=== PATIENT | female | born 1975 | race Caucasian/White ===

== ENCOUNTER 2023-04-14 13:42 | Outpatient (REF) | payer MEDICARE, SELFPAY ==
[2023-04-14 22:37] LABS: Bilirubin Negative (Negative); Blood Small (Negative); Clarity Clear (Clear); Glucose Negative (Negative); Ketones Negative (Negative); Leukocyte Esterase Trace (Negative); Nitrite Negative (Negative); Specific Gravity >= 1.030 (1.005-1.025); Urobilinogen 0.2 mg/dL (Up to 0.2); pH 6.5 (5-8)
[2023-04-14 23:08] LABS: Bacteria Few HPF (Negative); C & S Indicated? Yes; Casts Negative LPF (Negative); Crystals Negative HPF (Negative); Epithelial Cells Few HPF (Negative); Mucus Negative (Negative)
== END 2023-04-14 13:43 | disposition home or self-care (01) ==
LOC: LBN 13:42
PROVIDERS: PCP Internal Medicine; Visit Provider Physician Assistant
DX: N39.0 Urinary tract infection, site not specified (principal)
CPT/HCPCS: 87077; 81003; 81015; 87086; 87186

== ENCOUNTER 2023-05-09 09:46 | Outpatient (REF) | payer MEDICARE, SELFPAY ==
--- NOTE | 2023-05-09 09:30 | PAPFT_PTH ---
PATIENT: Jane Blair LOC: [facility] U#:[id number] AGE/SX: 47/F ROOM: RE05/09/[address]: Radha Salazar NP : 1975 BED: DIS: 05/09/2023 SPEC #: [id number] RECD: 05/09/23 14:43 STATUS: MATTHEW KAY #: [id number] LEIGHTON: 05/09/23 09:[address]: Radha Salazar NP DEPT: [facility] Cytology RECD BY: Janeen Farrar ENTERED: 05/09/23 14:45 SP TYPE: PAPFT OTHR DR: Michelle Shannon Tissues: 1 - CX/ENDOCX FOR PAP SMEARS Procedures: PAP THIN PREP/UVM Screening HPV DNA PROBE Comments: [id number]
== END 2023-05-09 09:47 | disposition home or self-care (01) ==
LOC: LBN 09:46
PROVIDERS: PCP Internal Medicine; Visit Provider Nurse Practitioner Women's Health
DX: Z11.51 Encounter for screening for human papillomavirus (HPV) (principal); Z01.419 Encounter for gynecological examination (general) (routine) without abnormal findings
CPT/HCPCS: 88142; 87624

== ENCOUNTER 2023-05-15 05:45 | Emergency (ER) | payer MEDICARE, SELFPAY ==
--- NOTE | 2023-05-15 05:45 | DI.RAD_ITS ---
Exam(s) XR FOOT RT COMPLETE EXAM: XR FOOT RT COMPLETE CLINICAL HISTORY: right foot pain s/p fall. TECHNIQUE: 2D digital imaging was performed. COMPARISON: No exams were available for comparison FINDINGS: 3 views There are acute fractures in the bases of the 2nd, 3rd, and 4th metatarsals. There is some displacem ent of the fragments at the fracture site at the base of the 3rd metatarsal. Less so at the other in volved metatarsal bases. There is no diastasis of the main Lisfranc joint. There is no fracture in the great toe metatarsal nor in the 5th metatarsal. There is no dislocation of the tarsometatarsal j oints. Moderate-advanced degenerative changes are noted in the metatarsophalangeal joint of the great toe. IMPRESSION: There fractures at the bases of the 2nd, 3rd, and 4th metatarsals as described above. The fracture o f the base of the 3rd metatarsal exhibits some displacement of the fracture fragments; less so at the bases of the 2nd and 4th metatarsal fracture sites. There is no diastasis of the main Lisfranc join t. DATA REPOSITORY: RADIATION DOSE DELIVERED:
[2023-05-15 05:47] VITALS: BP 132/82; PULSE 95; RESP 16; TEMP 36.6; O2SAT 100
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
[2023-05-15] MEDS: Ibuprofen 600 MG TAB PO (05:59)
--- NOTE | 2023-05-15 06:39 | DI.VRAD_ITS ---
PROCEDURE INFORMATION: Exam: XR Right Foot Exam date and time: 05/15/2023 6:12 AM Age: 47 years old Clinical indication: Injury or trauma; Fall; Blunt trauma; Foot; Right TECHNIQUE: Imaging protocol: Radiologic exam of the right foot. Views: 3 views. COMPARISON: No relevant prior studies available. FINDINGS: Bones/joints: There is a nondisplaced fracture of the proximal metadiaphysis of the 2nd metatarsal. There is a fracture of the base of the 3rd metatarsal with lateral displacement of the distal fracture fragment by approximately 4 mm and suspected intra-articular extension into the 3rd tarsometatarsal joint. There is an at least mildly comminuted fracture of the base of the 4th metatarsal with intra-articular extension into the tarsometatarsal joint. Alignment is anatomic. 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 Soft tissues: Dorsal soft tissue swelling throughout the forefoot. IMPRESSION: Fractures of the right 2nd-4th metatarsals as described above, with dorsal soft tissue swelling in the forefoot. Dictated and Authenticated by: Tonie Knowles MD. Ordering:GLORY Adrian MD
== END 2023-05-15 07:37 | disposition home or self-care (01) ==
PROVIDERS: Emergency Provider Emergency Medicine; PCP Internal Medicine
DX: S92.324A Nondisplaced fracture of second metatarsal bone, right foot, initial encounter for closed fracture (principal); S92.331A Displaced fracture of third metatarsal bone, right foot, initial encounter for closed fracture; S92.344A Nondisplaced fracture of fourth metatarsal bone, right foot, initial encounter for closed fracture; X50.9XXA Other and unspecified overexertion or strenuous movements or postures, initial encounter; Y93.02 Activity, running; Y92.89 Other specified places as the place of occurrence of the external cause; Y99.9 Unspecified external cause status
CPT/HCPCS: 99283; 73630

== ENCOUNTER 2023-05-25 08:54 | Outpatient (CLI) | payer MEDICARE, SELFPAY ==
--- NOTE | 2023-05-25 08:56 | DI.RAD_ITS ---
Exam(s) XR FOOT RT COMPLETE EXAM: XR FOOT RT COMPLETE CLINICAL HISTORY: F/U FRACTURE. TECHNIQUE: 2D digital imaging was performed of the right foot. Three images were obtained. AP, obl ique and lateral views were obtained. COMPARISON: CR,XR XR FOOT RT COMPLETE from 05/15/2023 FINDINGS: BONES: There again seen fractures through the bases of the 2nd and 3rd metatarsals. There is again s een mild displacement of 1 of the fracture fragments at the base of the 3rd metatarsal bone. There a lso appears to be a fracture through the medial aspect of the base of the 4th metatarsal bone. No ne w fracture is seen. No significant change in alignment of the fractures is noted. No bony destructi ve lesion is seen. JOINTS: No dislocation present. Degenerative changes are seen in the foot particularly at the 1st met atarsophalangeal joint. SOFT TISSUE: There is soft tissue swelling of the foot noted. IMPRESSION: Stable fractures involving the 2nd through 4th metatarsals. DATA REPOSITORY: RADIATION DOSE DELIVERED:
== END 2023-05-25 08:55 | disposition home or self-care (01) ==
LOC: DIORS 08:54
PROVIDERS: PCP Internal Medicine; Referring Provider Internal Medicine; Visit Provider Student in an Organized Health Care Education/Training Program
DX: S92.321A Displaced fracture of second metatarsal bone, right foot, initial encounter for closed fracture (principal); S92.331A Displaced fracture of third metatarsal bone, right foot, initial encounter for closed fracture; S92.341A Displaced fracture of fourth metatarsal bone, right foot, initial encounter for closed fracture; X58.XXXA Exposure to other specified factors, initial encounter
CPT/HCPCS: 99203; 99213; 73630

== ENCOUNTER 2023-06-22 09:40 | Outpatient (CLI) | payer MEDICARE, SELFPAY ==
--- NOTE | 2023-06-22 08:30 | DI.RAD_ITS ---
Exam(s) XR FOOT RT COMPLETE EXAM: XR FOOT RT COMPLETE CLINICAL HISTORY: F/U FRACTURE. TECHNIQUE: 2D digital imaging was performed of the right foot. Three images were obtained. AP, obl ique and lateral views were obtained. COMPARISON: CR XR FOOT RT COMPLETE from 05/25/2023 FINDINGS: BONES: There has been no change in alignment of the fractures involving the bases of the 2nd, 3rd and 4th metatarsals. No new fractures are seen. No bony destructive lesion is seen. There is a small p lantar calcaneal spur. There is an enthesophyte at the posterior calcaneus. JOINTS: No dislocation present. Degenerative changes are seen in the foot particularly at the 1st met atarsophalangeal joint characterized by joint space narrowing and osteophytes. SOFT TISSUE: There is soft tissue swelling of the forefoot. IMPRESSION: Stable alignment of the 2nd through 4th metatarsal fractures. DATA REPOSITORY: RADIATION DOSE DELIVERED:
== END 2023-06-22 09:41 | disposition home or self-care (01) ==
LOC: DIORS 09:41
PROVIDERS: PCP Internal Medicine; Referring Provider Internal Medicine; Visit Provider Student in an Organized Health Care Education/Training Program
DX: S92.321D Displaced fracture of second metatarsal bone, right foot, subsequent encounter for fracture with routine healing (principal); S92.341D Displaced fracture of fourth metatarsal bone, right foot, subsequent encounter for fracture with routine healing; S92.331D Displaced fracture of third metatarsal bone, right foot, subsequent encounter for fracture with routine healing; X58.XXXD Exposure to other specified factors, subsequent encounter
CPT/HCPCS: 99213; 73630

== ENCOUNTER 2024-04-28 15:47 | Outpatient (REF) | payer MEDICARE, SELFPAY ==
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
--- OUTSIDE RECORDS SUMMARY | 2024-04-28 15:49 | XMS_ITS | Encounter Summary ---
Author Organization [facility] Address [address] [place] [address] Care Team Providers Care Team Automobile Assembler Name Role Phone Michelle Shannon MD Primary Care Provider + Reason for Visit * Reason Onset Date Comments Medications Refill 04/19/2024 Encounter Details Date Type Department Care Team (Late st Contact Info) Description 04/19/2024 Refill [facility] [address] [place], [place] [phone] Jasmeet Sheets MD [address] [facility]. [address] [place] [phone] Medications Refill Social History Tobacco Use Types [...] place to sleep or slept in a fpc (including now)? No 04/29/2023 Interpersonal Safety Answer Date Record ed How often does anyone, inclalex elissa family, hit, punch or physically hurt you? Sometimes 04/29/2023 How often does anyone, inclalex elissa family, insult, scream, curse or threaten to hurt you? Sometimes 04/29/2023 Sex and Gender Information Value Date Recorded Sex Assigned at Not on file Gender Identity Female 11/10/2020 8:41 EST Sexual Orientation Straight 12/07/2023 23 :06 EDT documented as of this encounter Ordered Prescriptions Prescription Sig Dispensed Refills Start Date End Da te dextroamphetamine-amphet amine (ADDERALL XR) 30 mg XR capsule Take 1 Capsule by mouth daily. Daily Max: 30 mg 30 Capsule 04/25/2024 04/24/2024 documented in this encounter Miscellaneous Notes * Telephone Encounter - Kelsy Mascorro, JOSEFINA - 04/19/2024 1410 EDT Requested Prescriptions Pending Prescriptions Disp Refills dextroamphetamine-amphetamine (ADDERALL XR) 30 mg XR capsule 30 Capsule 0 Sig: Take 1 Capsule by mouth daily. Daily Max: 30 mg Last visit: 03/28/24 Next visit: Not scheduled Last p/u per [facility]: 03/28/24 Dose verified. The [place] Prescription Monitoring System query has been completed per the following requirement(s): Annual Verification. Order pended to Dr. Sheets documented in this encounter Plan of Treatment Upcoming Encounters Date Type Department Care Team (Late st Contact Info) Description 06/08/2024 13:30 EDT Office Visit [facility] [address] [place], [place] [phone] Michelle Shannon MD [address] [place] [phone] documented as of this encounter Visit Diagnoses Not on filedocumented in this encounter Discontinued Medications Medication Sig Discontinue Reason Start Date End Da te dextroamphetamine-amphet amine (ADDERALL XR) 30 mg XR capsule Take 1 Capsule by mouth daily. Daily Max: 30 mg Reorder 03/28/2024 04/19/2024 documented as of this encounter Care Teams Team Automobile Assembler Relationship Specialty Start Date End Date Michelle Shannon MD [address] [place] [phone] PCP - General 09/08/11 documented as of this encounter
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
--- OUTSIDE RECORDS SUMMARY | 2024-04-28 15:49 | XMS_ITS | Clinical Summary ---
Author Organization 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 Active metroNIDAZOLE (METROGEL) 0.75 % gel Apply topically 2 times daily. Active albuterol 90 mcg/actuation inhaler Inhale 1-2 Puffs as directed every 6 hours as needed (shortness of breath). Or 15-30 minutes prior to exercise 1 Inhaler 8 Active Additional Information Patient not taking.Reported on 03/06/2024 betamethasone dipropionate 0.05 % lotion Apply topically 2 times daily. Twice daily as needed for itch. Do not let it drip onto the face 60 mL 3 1 Active Additional Information Patient not taking.Reported on 03/06/2024 fluticasone propionate (FLONASE) 50 mcg/actuation nasal spray SHAKE LIQUID AND USE 2 SPRAYS IN EACH NOSTRIL DAILY 3 Bottle 1 Active melatonin 10 mg capsule Take 10 mg by mouth at bedtime. 100 capsule 2 2 Active cholecalciferol, Vitamin D3, (VITAMIN D3) 125 mcg (5,000 unit) tablet Take 1 Tablet by mouth daily. 100 Tablet 1 3 Active ibuprofen (MOTRIN) 800 mg tablet Take 1 Tablet by mouth every 8 hours as needed for Pain. 60 Tablet 3 Active Additional Information Patient not taking.Reported on 03/06/2024 ARIPiprazole (ABILIFY) 5 mg tablet Take 1 Tablet by mouth daily. As directed 90 Tablet 3 Active Additional Information Patient taking differently: 2.5 mgoral DAILY, As directed, Reported on 12/21/2023 loratadine (CLARITIN) 10 mg tablet Take 1 Tablet by mouth daily. 100 Tablet 1 3 Active LORazepam (ATIVAN) 1 mg tablet Take 1 Tablet by mouth 2 times daily. Daily Max: 2 mg 7 Tablet 4 Active Additional Information Patient not taking.Reported on 03/06/2024 mupirocin (BACTROBAN) 2 % ointment Apply topically to affected area 2 times daily. For 5 days 22 g 3 4 Active Additional Information Patient not taking.Reported on 03/06/2024 estradiol (ESTRING) 2 mg (7.5 mcg /24 hour) vaginal ring Place 1 Ring vaginally Once for 1 dose. follow package directions 1 Each 3 4 Active omeprazole (PRILOSEC) 20 mg capsule TAKE 1 CAPSULE BY MOUTH TWICE DAILY 90 Capsule 3 4 Active clonazePAM (KLONOPIN) 0.5 mg tablet Take 1 and 1/2 tab nightly at bedtime 45 Tablet 2 4 Active topiramate (TOPAMAX) 50 mg tablet TAKE 2 TABLETS BY MOUTH TWICE DAILY 360 Tablet 1 4 Active cyclobenzaprine (FLEXERIL) 5 mg tablet Take 1 Tablet by mouth every 8 hours as needed for Muscle Spasms. 30 Tablet 4 Active Additional Information Patient not taking.Reported on 03/06/2024 gabapentin (NEURONTIN) 100 mg capsule Take 1 Capsule by mouth daily. 1 at hs 60 Capsule 1 4 Active methylphenidate HCl (RITALIN;METHYLI N) 10 mg tablet 2 tab in AM and 1 tab at noon 90 Tablet 4 Active escitalopram oxalate (LEXAPRO) 10 mg tablet Take 2 Tablets by mouth daily. 60 Tablet 5 4 Active dextroamphetamin e-amphetamine (ADDERALL XR) 30 mg XR capsule Take 1 Capsule by mouth daily. Daily Max: 30 mg 30 Capsule 4 Active escitalopram oxalate (LEXAPRO) 10 mg tablet Take 2 Tablets by mouth daily. 04/06/20 24 Discontinued(Reo rder) dextroamphetamin e-amphetamine (ADDERALL XR) 30 mg XR capsule Take 1 Capsule by mouth daily. Daily Max: 30 mg 30 Capsule 4 04/19/20 24 Discontinued(Reo rder) dextroamphetamin e-amphetamine (ADDERALL XR) 30 mg XR capsule Take 1 Capsule by mouth daily. Daily Max: 30 mg 30 Capsule 4 04/24/20 24 Discontinued Active Problems Patient Care Coordination No te Formatting of this note migh t be different from the original. 2021 Traditional [place]t [place]; aid category/trace# [id number]. Yvette Monroy 12/17/2021 14:31 2020 TC# [id number] Standard [place] Medicaid Mony Holt 11/07/20 15:50 Per [place] Medicaid web, N ACO 2020, aid cat ND, shows Mcr ABD primary, trans # [phone]. Sheree Thomas 07/02/2020 12:34 Problem Noted Date Diagnosed Date Encounter for sterilization 06/30/2020 Overview: Added automatically from request for surgery [id number] Anxiety 12/26/2019 Allergic rhinitis 06/12/2018 Vitamin D deficiency 09/16/2017 GERD without esophagitis 06/17/2017 MDD (major depressive disord er), recurrent episode, moderate ([facility]) 06/20/2013 Episodic mood disorder ([facility]) 2013 Migraine with aura 09/10/2010 Overview: ICD10 Update Auto Replacement Narcolepsy without cataplexy 06/19/2010 REM sleep behavior disorder 06/19/2010 Encounters Date Type Department Care Team Description 04/24/2024 Refill [facility] Sleep Program - [address] [address] Jasmeet Sheets MD Medications Refill 04/19/2024 13:10 EDT Ancillary Procedure [facility] Endocrinology - [address] [address] Early menopause 04/19/2024 Refill [facility] [address] [address] Jasmeet Sheets MD Medications Refill 04/06/2024 Telephone [facility], [address] [address] Michelle Shannon MD Medication Management; Medications Refill 04/03/2024 Refill [facility], [address] [address] Michelle Shannon MD Medications Refill 03/28/2024 11:00 EDT Telemedicine [facility] [address] [address] Jasmeet Sheets MD 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) 03/26/2024 Refill [facility] [address] [address] Jasmeet Sheets MD Appointment Related; Medications Refill 03/20/2024 Telephone [facility], [address] [address] Michelle Shannon MD Results 03/20/2024 Telephone [facility] [address] [address] Jasmeet Sheets MD Results 03/05/2024 21:30 EDT Office Visit [facility] [address] [place] [address] [place] [address] Polysomnogram , [facility] Snoring (Primary Dx) 03/05/2024 13:30 EDT Office Visit [facility], [address] [address] Michelle Shannon MD BMI 34.0-34.9,adult (Primary Dx); REM sleep behavior disorder; Narcolepsy without cataplexy; MDD (major depressive disorder), recurrent episode, moderate ([facility]); Arthralgia of right temporomandibular joint 02/28/2024 Refill [facility], [address] [address] Michelle Shannon MD Medications Refill 02/24/2024 Orders Only [facility], [address] [facility] [address] [place] [address] Michelle Shannon MD 02/24/2024 Refill [facility], 550 [facility] [address] [place] [address] Michelle Shannon MD Medications Refill 02/06/2024 Refill Corwin Elliott MD [facility] [place] [address] [place], [place] [id number] Janna Tamayo RN Medications Refill from Last 3 Months Immunizations Name Administration Dates Next Due Covid-19 Ad26 Vaccine (JANSS EN COVID-19) PF 0.5 ml IM (18 yrs+) 12/18/2020 Influenza Vaccine Quad (FLUZ ONE) MDV w/preserv 0.5 ml IM (6 mos+) 10/16/2018 Influenza Vaccine Quad PF 0.5 ml IM (6 mos+) 01/2020 Surgical History Surgery Date Site/Laterality Comments TONSILLECTOMY 2019 Dr. Dumont WISDOM TOOTH EXTRACTION TYMPANOSTOMY TUBE PLACEMENT CERVIX LESION DESTRUCTION TUBAL LIGATION 06/26/2020 - 07/26/2020 BREAST BIOPSY clip in left breast Medical History Medical History Date Comments Hearing difficulty Unspecified cerebral artery occlusion with cerebral infarction Migraines Depression Anxiety GERD (gastroesophageal reflux disease) Narcolepsy REM sleep disord er Allergic rhinitis Panic attacks Insomnia Tremors of nervous system Pain joints History of general anesthesia Does not exercise Heart murmur as a child Vasovagal syncope last episode 0 04/2020 Asthma exercise induced , last inhaler use 06/26/20 Family History Medical History Relation Comments Alcohol Abuse Brother fatty liver and GERD Unknown Father Breast Cancer Maternal Aunt Colon Cancer Maternal Grandfather Breast Cancer Maternal Grandmother *Other(comment) Mother Sjogrens and ? R A, SAMANIEGO Diabetes Mother Elevated Lipids Mother Heart Attack Mother Heart Disease Mother Hemochromatosis Mother Hypertension Mother Melanoma Mother Obesity Mother Colon Cancer Paternal Grandfather Migraines Paternal Grandmother Relation Status Comments Brother Alive Father Maternal Aunt Maternal Grandfather Maternal Grandmother Mother Alive Paternal Grandfather Paternal Grandmother Social History Tobacco Use Types Packs/Day Years Used Date Smoking Tobacco: Never Smokeless Tobacco: Never Tobacco Cessation:Counseling Given: Not Answered Alcohol Use Standard Drinks/Week Comments Yes 0 [...] place to sleep or slept in a halfway (including now)? No 04/29/2023 Interpersonal Safety Answer Date Record ed How often does anyone, myron elissa family, hit, punch or physically hurt you? Sometimes 04/29/2023 How often does anyone, myron bowers family, insult, scream, curse or threaten to hurt you? Sometimes 04/29/2023 Sex and Gender Information Value Date Recorded Sex Assigned at Not on file Gender Identity Female 11/10/2020 8:41 EST Sexual Orientation Straight 12/07/2023 23 :06 EDT Obstetrics History Para Term AB IAB SAB Ectopic Multiple Livin g Live Births 0 Last Filed Vital Signs Vital Sign Reading Time Taken Comments Blood Pressure 110/70 03/05/2024 1339 EDT Pulse 97 03/05/2024 1339 EDT Temperature 37 ??C (98.6 ??F) 03/05/2024 1339 EDT Respiratory Rate 16 12/21/2023 1356 EDT Oxygen Saturation 97% 03/05/2024 1339 EDT Inhaled Oxygen Concentration - - Weight 89.6 kg (197 lb 9.6 oz) 04/19/2024 1312 E DT Height 164.2 cm (5' 4.65) 04/19/2024 1312 EDT Body Mass Index 33.24 04/19/2024 1312 EDT Plan of Treatment Upcoming Encounters Date Type Department Care Team (Late st Contact Info) Description 06/08/2024 13:30 EDT Office Visit [facility] [address] [facility] [address] [place] [address] Michelle Shannon MD [address] [place] [address] Health Maintenance Due Date Last Done Comments Advance Directive 1992 Hepatitis B Vaccine (1 of 3 - 19+ 3-dose series) 1993 Pertussis (Adult) Immunization 1993 Tetanus (Adult) Immunization 1993 Cologuard (Colon Cancer Screening) 2019 Colonoscopy (Colon Cancer Screening) 2019 Colorectal Cancer Screening 2019 FIT Test (Colon Cancer Screening) 2019 Sigmoidoscopy (Colon Cancer Screening) 2019 Preventive Care Visit 06/06/2020 06/06/2018 COVID-19 Vaccine (2 - 2022-2 4 season) 2023 12/18/2020 Depression Screening 04/29/2024 04/29/2023, 04/25/2023, 12/28/2021 Social Determinants Of Healt h (SDOH) 04/29/2024 04/29/2023 Influenza Immunization (Adul t) (#1) 2024 06/30/2020, 10/16/2018 Lipid Profile Screening (Cholesterol) 02/21/2025 02/22/2020, 10/03/2017, 08/13/2014, Additional history exists Breast Cancer Screening 05/10/2025 05/10/20 23, 09/07/2021, 05/19/2020 Pap Smear (Cervical Cancer Screening) 05/09/2026 05/09/2023 Cervical Cancer Screening 05/09/2028 HPV/Cotest (Cervical Cancer Screening) 05/09/2028 05/09/2023, 05/09/2023 HIV Screening Completed 02/04/2015, 11/2013, 06/29/2010, Additional history exists Hepatitis C Screen Completed 02/04/2015, 1 09/28/2013, 06/29/2010, Additional history exists Medical Devices Implanted Type Area Petal Shaper Hand Device Identifier Shelf Expiration Date Model / Serial / Lot Breast Clip-Mr Safe Procedures Procedure Name Priority Date/Time Associated Diagnosis Comments DXA BONE DENSITY Routine 04/19/2024 13:1 2 EDT Early menopause SLEEP STUDY REPORT - SCANNED 03/19/2024 9:29 EDT POCT HEMOGLOBIN A1C Routine 03/05/2024 BMI 34.0-34.9,adult MR BREAST SCREENING W WO CONTRAST BILATERAL Routine 05/10/2023 20:01 EDT Breast cancer screening, high risk patient PAP TEST Today 05/09/2023 9:30 EDT Encounter for other general examination LIPID PROFILE (INCLUDES CHOLESTEROL, TRIGLYCERIDES, HDL, LDL) Routine 02/22/2020 11:14 EDT Abnormal weight gain Fatigue, unspecified type Persistent disorder of initiating or maintaining sleep Baldness HEPATITIS C AB W REFLEX TO HCV RNA BY PCR Routine 02/04/2015 11:23 EDT HIV 1/2 ANTIGEN AND ANTIBODY, 4TH GENERATION Routine 02/04/2015 11:23 EDT from Last 3 Months or Most Recently Relevant to Health Maintenance Results * DXA BONE DENSITY (04/19/2024 13:12 EDT) Anatomical Region Laterality Modality Other Michelle Shannon MD IMG DEXA ORDERAB LES * SLEEP STUDY REPORT - SCANNED (03/19/2024 9:29 EDT) 03/19/2024 9:29 EDT Scan 2 Research Intern PROCEDURE/MINOR ANTONELLA GICAL ORDERABLES * POCT HEMOGLOBIN A1C (03/05/2024) Hemoglobin A1c, POC 5.7 5.7 % [facility] POINT OF CARE Blood CAPILLARY BLOOD / Unknown 03/05/2024 Michelle Shannon MD POINT OF CARE TE ST ORDERABLES [facility] POINT OF CARE * MR BREAST SCREENING W WO CONTRAST BILATERAL (05/10/2023 20:01 EDT) Anatomical Region Laterality Modality Breast Bilateral Magnetic Resonan ce 05/11/2023 9:39 EDT Impressions 05/11/2023 9:39 EDT RIGHT BREAST: BI-RADS 2: Benign IMPRESSION LEFT BREAST: BI-RADS 2: Benign RECOMMENDATIONS: Patient currently overdue for her annual screening mammography, last performed September 07, 2021. If this patient's calculated lifetime risk of breast cancer is greater than 20%, per [place] [employer] guidelines, annual MRI screening is recommended in addition to mammography. The patient will be notified of the breast imaging results via a lay letter from Radiology. ??Radiology will contact the patient directly regarding any findings which require additional imaging. FINAL BI-RADS ASSESSMENT: BI-RADS 2: Benign [id number] Narrative 05/11/2023 9:39 EDT MR BREAST SCREENING W WO CONTRAST BILATERAL ??05/10/2023 6:30 PM SIGNS AND SYMPTOMS/COMMENTS: high risk breast cancer; Screening, breast cancer, high risk, >=20% lifetime risk; high risk breast cancer;Z12.39:Breast cancer screening, high risk patient COMPARISON TO PRIOR MRIs: ?? November 17, 2020, April 10, 2019 Correlation to mammograms: September 07, 2021 Correlation to ultrasound: No recent breast ultrasound BILATERAL BREAST MRI, TECHNIQUE: ?? Imaging was performed in the prone position in a dedicated breast coil on the 3T magnet. The following axial sequences were obtained: T2 fat-sat, T1 nonfat sat, T1 fat sat pre-gadolinium and dynamic series postgadolinium. Reformatted T1 fat-sat sagittal and coronal post-contrast sequences were also reviewed. ??Bilateral imaging was performed per protocol. 18 cc of IV Dotarem gadolinium was administered. The images were reviewed on a PACS workstation and independent [employer] viewing platform with and without subtraction. 3D reconstructions were obtained in coronal, sagittal and MIP projections. LMP: Postmenopausal (LMP 07/08/2020) FINDINGS: Amount of fibroglandular tissue: Scattered fibroglandular tissue. Background parenchymal enhancement: Moderate and symmetric RIGHT BREAST: There is no suspicious mass, non-mass enhancement, or unexplained architectural distortion. A few scattered cysts are present. There are no pathologically enlarged internal mammary or axillary lymph nodes. LEFT BREAST: There is no suspicious mass, non-mass enhancement, or unexplained architectural distortion. A few scattered cysts are present. History of complex sclerosing lesion at biopsy in 2018. A clip varner the area at 3:00. There is stable non-mass enhancement in the region of the clip similar to 2019. There are no pathologically enlarged internal mammary or axillary lymph nodes. NON-BREAST FINDINGS: None Michelle Shannon MD [facility] MRI ORDERABL ES * PAP TEST (05/09/2023 9:30 EDT) Specimens A. Cervix and/or Endocervix , ThinPrep Imaging System with Manual Evaluation 05/18/2023 15:12 EDT [facility] Specimen Adequacy Satisfactory for Evaluation - transformation zone component absent 05/18/2023 15:12 [facility] General Categorization Negative for intraepithelial lesion or malignancy 05/18/2023 15:12 EDT [facility] Descriptive Diagnosis Shift in gurdeep present suggestive of bacterial vaginosis. 05/18/2023 15:12 [facility] Attestation . 05/18/2023 15:12 EDT [facility] at 1512 Clinical History SEE BELOW 05/18/20 15:12 EDT [facility] HPV The result for the Human Papillomavirus (HPV) Detection-High Risk Types is Negative. No E6 or E7 mRNA is detected from HPV types 16,18,31,33,35,39 ,45,51,52,56,58,5 9,66, and 68 by java lead engineer mediated amplification.Marii ting was performed on specimen [id number] and was resulted on 05/18/2023 1512 EDT by JENNIFER, LAB INSTRUMENT RESULTS IN 05/18/2023 15:12 EDT [facility] Performing Lab [facility] 05/18/2023 15:12 T [facility] Scanned Images 05/18/2023 15:12 EDT [facility] Pap Test CERVIX UTERI STRUCTURE / Unknown 05/09/2023 9:30 EDT 05/10/2023 12:03 EDT Radha Salazar APRN PATHOLOGY ORDERAB LES [facility] [address] [place] [address] * LIPID PROFILE (INCLUDES CHOLESTEROL, TRIGLYCERIDES, HDL, LDL) (02/22/2020 11:14 EDT) Cholesterol 192 See Note mg/dL 02/22/2020 12:44 EDT [facility] Comment: Acceptable: ?<200 mg/dL Borderline High: 200-239 mg/dL High: ?> or = 240 mg/dL HDL 38 See Note mg/dL 02/22/2020 12:44 EDT [facility] Comment: Low: ? <40 mg/dL Normal: ??40-60 mg/dL High: ?>60 mg/dL LDL, Calculated 114 See Note mg/dL 02/22/2020 12:44 EDT [facility] Comment: Optimal: ? <100 mg/dL Near Optimal: ?100-129 mg/dL Borderline High: 130-159 mg/dL High: ?160-189 mg/dL Very High: ? > or = 190 mg/dL Triglyceride 199 See Note mg/dL 02/22/2020 12:44 T [facility] Comment: Normal: ? <150 mg/dL Borderline High: ??150 - 199 mg/dL High: ? 200 - 499 mg/dL Very High: ?> or = 500 mg/dL Chol/HDL Ratio 5.1 See Note 02/22/2020 12:44 T [facility] Comment: No reference range has been established for CHOL/HDL ratio. Non HDL Cholesterol 154 See Note mg/dL 02/22/2020 12:44 T [facility] Comment: Desirable: ?<130 mg/dL Borderline High: ??130-159 mg/dL High: ? 160-189 mg/dL Very High: ?> or = 190 mg/dL Blood VENOUS BLOOD / Unknown Venipuncture / Unknown 02/22/2020 11:14 EDT 02/22/2020 11:14 EDT Joyce Solomon ND CHEMISTRY & BLOOD GA S ORDERABLES [facility] [address] [place] [address] * HEPATITIS C ANTIBODY (02/04/2015 11:23 EDT) Hepatitis C Ab Negative 02/05/2015 11:30 EDT [facility] Comment:Reference Range: Neg ative BLOOD SPECIMEN / Unknown 02/04/2015 11:23 EDT 02/04/2015 19:04 EDT Nhung Warner NP CHEMISTRY & BLOOD GA S ORDERABLES [facility] [address] [place] [address] * HIV 1/2 ANTIBODY (02/04/2015 11:23 EDT) HIV 1/2 Antibody Negative 02/06/20 15 11:30 EDT [facility] Comment: If acute HIV-1 infection is suspected in a high risk patient, submit plasma specimen for HIV-1 RNA quantification test. Reference Range: ??Negative Assayed utilizing [employer] chemiluminescent technology. BLOOD SPECIMEN / Unknown 02/04/2015 11:23 EDT 02/04/2015 19:04 EDT Nhung Warner NP IMMUNOLOGY AND SEROL OGY ORDERABLES Performing Organization Address City/[facility] Co de Phone Number [facility] [address] [place] [address] from Last 3 Months or Most Recently Relevant to Health Maintenance Jane Blair Personal/Family Self 1975 [address] [facility] [place] [address] Jane Blair Personal/Family Self 1975 [address] [facility] [place] [address] Jane Blair Personal/Family Self 1975 [address] [facility] [place] [address] Care Teams Oil And Gas Drafter Relationship Specialty Start Date End Date Michelle Shannon MD [address] [place] [address] PCP - General 09/08/11
--- OUTSIDE RECORDS SUMMARY | 2024-04-28 15:49 | XMS_ITS | Referral Summary ---
Author Organization [facility] Address [address] [place] [address] Care Team Providers Care Seismology Teacher Name Role Phone Michelle Shannon MD Primary Care Provider + Encounters Date Type Department Care Team Description 04/24/2024 Refill [facility] - [address] [address] Jasmeet Sheets MD Medications Refill 04/19/2024 Refill [facility] [address] [phone] Jasmeet Sheets MD Medications Refill 04/19/2024 13:10 EDT Ancillary Procedure [facility] Endocrinology - [address] [address] Early menopause 04/06/2024 Telephone [facility] [address] [address] Michelle Shannon MD Medication Management; Medications Refill 04/03/2024 Refill [facility] [address] [phone] Michelle Shannon MD Medications Refill 03/28/2024 11:00 EDT Telemedicine [facility] [address] [phone] Jasmeet Sheets MD 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) 03/26/2024 Refill [facility] - [address] [address] Jasmeet Sheets MD Appointment Related; Medications Refill 03/20/2024 Telephone [facility], [address] [address] Michelle Shannon MD Results 03/20/2024 Telephone [facility] [address] [address] Jasmeet Sheets MD Results 03/05/2024 13:30 EDT Office Visit [facility], [address] [phone] Michelle Shannon MD BMI 34.0-34.9,adult (Primary Dx); REM sleep behavior disorder; Narcolepsy without cataplexy; MDD (major depressive disorder), recurrent episode, moderate ([facility]); Arthralgia of right temporomandibular joint 03/05/2024 21:30 EDT Office Visit [facility] [address] [phone] Polysomnogram , Res Inn Snoring (Primary Dx) 02/28/2024 Refill [facility], [address] [address] Michelle Shannon MD Medications Refill 02/24/2024 Orders Only [facility], [address] [address] Michelle Shannon MD 02/24/2024 Refill [facility], [address] [address] Michelle Shannon MD Medications Refill 02/06/2024 Refill Corwin Elliott MD [address] [phone] Janna Tamayo, RN Medications Refill from Last 3 Months Allergies No known active allergies Medications Medication [...] original. 2021 Traditional Vt Mcaid; aid category/trace# [id number]. Yvette Monroy 12/17/2021 14:31 2020 TC# [id number] Standard Vt Medicaid Mony Holt 11/07/20 15:50 Per [place] Medicaid web, N ACO 2020, aid cat [place], shows Mcr ABD primary, trans # [id number]. Sheree Thomas 07/02/2020 12:34 Problem Noted Date Diagnosed Date Encounter for sterilization 06/30/2020 Overview: Added automatically from request for surgery [id number] Anxiety 12/26/2019 Allergic rhinitis 06/12/2018 Vitamin D deficiency 09/16/2017 GERD without esophagitis 06/17/2017 MDD (major depressive disord er), recurrent episode, moderate ([facility]) 06/20/2013 Episodic mood disorder ([facility]) 2013 Migraine with aura 09/10/2010 Overview: ICD10 Update Auto Replacement Narcolepsy without cataplexy 06/19/2010 REM sleep behavior disorder 06/19/2010 Immunizations Name Administration Dates Next Due Covid-19 Ad26 Vaccine (JANSS EN COVID-19) PF 0.5 ml IM (18 yrs+) 12/18/2020 Influenza Vaccine Quad (FLUZ ONE) MDV w/preserv 0.5 ml IM (6 mos+) 10/16/2018 Influenza Vaccine Quad PF 0.5 ml IM (6 mos+) 01/2020 Social History Tobacco Use Types Packs/Day Years [...] place to sleep or slept in a [place] health care facility (including now)? No 04/29/2023 Interpersonal Safety Answer [...] Sexual Orientation Straight 12/07/2023 23 :06 EDT Last Filed Vital Signs Vital Sign Reading [...] Info) Description 06/08/2024 13:30 EDT Office Visit [facility], [address] [facility] [address] [place] [address] Michelle Shannon MD [address] [place] [phone] Medical Devices Implanted Type Area Imaging Account Manager Device Identifier Shelf Expiration Date Model / [...] 9:29 EDT) 03/19/2024 9:29 EDT Scan 2 Steam Cleaning Machine Operator PROCEDURE/MINOR ANTONELLA GICAL ORDERABLES * POCT HEMOGLOBIN A1C (03/05/2024) Hemoglobin A1c, POC 5.7 5.7 % [facility] POINT OF CARE Blood CAPILLARY BLOOD / Unknown 03/05/2024 Michelle Shannon MD POINT OF CARE TE ST ORDERABLES [facility] POINT OF CARE * MR BREAST SCREENING [...] breast cancer is greater than 20%, per [employer] guidelines, annual MRI screening is recommended in addition to mammography. The patient will be notified of the breast imaging results via a lay letter from Radiology. ??Radiology will contact the patient directly regarding any findings which require additional imaging. FINAL BI-RADS ASSESSMENT: BI-RADS 2: Benign [id number] Narrative 05/11/2023 9:39 EDT MR BREAST SCREENING [...] reviewed on a PACS workstation and independent DynaCAD viewing platform with and without subtraction. 3D [...] nodes. NON-BREAST FINDINGS: None Michelle Shannon MD IMG MRI ORDERABL ES * PAP TEST (05/09/2023 9:30 EDT) Specimens A. Cervix and/or Endocervix , ThinPrep Imaging System with Manual Evaluation 05/18/2023 15:12 [facility] Specimen Adequacy Satisfactory for Evaluation - transformation zone component absent 05/18/2023 15:12 [facility] General Categorization Negative for intraepithelial lesion or malignancy 05/18/2023 15:12 [facility] Descriptive Diagnosis Shift in gurdeep present suggestive of bacterial vaginosis. 05/18/2023 15:12 [facility] Attestation . 05/18/2023 15:12 [facility] at 1512 Clinical History SEE BELOW 05/18/20 15:12 [facility] HPV The result for the Human Papillomavirus (HPV) Detection-High Risk Types is Negative. No E6 or E7 mRNA is detected from HPV types 16,18,31,33,35,39 ,45,51,52,56,58,5 9,66, and 68 by chain maker mediated amplification.Marii ting was performed on specimen [id number] and was resulted on 05/18/2023 1512 EDT by JENNIFER, LAB INSTRUMENT RESULTS IN 05/18/2023 15:12 EDT [facility] Performing Lab [facility] 05/18/2023 15:12 EDT [facility] Scanned Images 05/18/2023 15:12 EDT [facility] Pap Test CERVIX UTERI STRUCTURE / Unknown 05/09/2023 9:30 EDT 05/10/2023 12:03 EDT Radha Salazar APRN PATHOLOGY ORDERAB LES [facility] [address] [place] [address] * LIPID PROFILE (INCLUDES CHOLESTEROL, TRIGLYCERIDES, HDL, LDL) (02/22/2020 11:14 EDT) Cholesterol 192 See Note mg/dL 02/22/2020 12:44 EDT [facility] Comment: Acceptable: ?<200 mg/dL Borderline High: 200-239 mg/dL High: ?> or = 240 mg/dL HDL 38 See Note mg/dL 02/22/2020 12:44 EDT [facility] Comment: Low: ? <40 mg/dL Normal: ??40-60 mg/dL High: ?>60 mg/dL LDL, Calculated 114 See Note mg/dL 02/22/2020 12:44 T [facility] Comment: Optimal: ? <100 mg/dL Near Optimal: ?100-129 mg/dL Borderline High: 130-159 mg/dL High: ?160-189 mg/dL Very High: ? > or = 190 mg/dL Triglyceride 199 See Note mg/dL 02/22/2020 12:44 T [facility] Comment: Normal: ? <150 mg/dL Borderline High: ??150 - 199 mg/dL High: ? 200 - 499 mg/dL Very High: ?> or = 500 mg/dL Chol/HDL Ratio 5.1 See Note 02/22/2020 12:44 EDT [facility] Comment: No reference range has been established for CHOL/HDL ratio. Non HDL Cholesterol 154 See Note mg/dL 02/22/2020 12:44 EDT [facility] Comment: Desirable: ?<130 mg/dL Borderline High: ??130-159 mg/dL High: ? 160-189 mg/dL Very High: ?> or = 190 mg/dL Blood VENOUS BLOOD / Unknown Venipuncture / Unknown 02/22/2020 11:14 EDT 02/22/2020 11:14 EDT Joyce Solomon ND CHEMISTRY & BLOOD GA S ORDERABLES Performing Organization Address [facility] de Phone Number [facility] [address] [place] [address] * HEPATITIS C ANTIBODY (02/04/2015 11:23 EDT) Hepatitis C Ab Negative 02/05/2015 11:30 EDT [facility] Comment:Reference Range: Neg ative BLOOD SPECIMEN / Unknown 02/04/2015 11:23 EDT 02/04/2015 19:04 EDT Nhung Warner IMPREGNATING MACHINE OPERATOR CHEMISTRY & BLOOD GA S ORDERABLES Performing Organization Address [facility] Co de Phone Number [facility] [address] [place] [address] * HIV 1/2 ANTIBODY (02/04/2015 11:23 EDT) HIV 1/2 Antibody Negative 02/06/20 11:30 EDT [facility] Comment: If acute HIV-1 infection is suspected in a high risk patient, submit plasma specimen for HIV-1 RNA quantification test. Reference Range: ??Negative Assayed utilizing [employer] chemiluminescent technology. BLOOD SPECIMEN / Unknown 02/04/2015 11:23 EDT 02/04/2015 19:04 EDT Nhung Warner IMPREGNATING MACHINE OPERATOR IMMUNOLOGY AND FAYE ZELAYA ORDERABLES [facility] [address] [place] [address] from Last 3 Months or Most Recently Relevant to Health Maintenance Johnnie Jane M Personal/Family Self 1975 [address] [facility] [address] [place] [address] Li Blaira M Personal/Family Self [address] [place] [address] Jane Blair M Personal/Family Self [address] [place] [address] Li Blaira M Personal/Family Self [address] [place] [address] Care Teams Seismology Teacher Relationship Specialty Start Date End Date Michelle Shannon MD [address] [place] [phone] PCP - General 09/08/11
--- OUTSIDE RECORDS SUMMARY | 2024-04-28 15:49 | XMS_ITS | Encounter Summary ---
Author Organization [facility] Address [address] [place] [address] Care Team Providers Care Tourist Home Keeper Name Role Phone Michelle Shannon MD Primary Care Provider + Reason for Visit * Reason Onset Date Comments Medications Refill 04/24/2024 Encounter Details Date Type Department Care Team (Late st Contact Info) Description 04/24/2024 Refill [facility] Sleep Program - [address] [place], [place] [address] Jasmeet Sheets MD [address] [facility]. [address] [place] [phone] Medications Refill Social History Tobacco [...] place to sleep or slept in a intermediate (including now)? No 04/29/2023 Interpersonal Safety Answer Date Record ed How often does anyone, breealex elissa family, hit, punch or physically hurt [...] Dispensed Refills Start Date End Da te dextroamphetamine-ampheta mine (ADDERALL XR) 30 mg XR capsule Take 1 Capsule by mouth daily. Daily Max: 30 mg 30 Capsule 04/25/2024 documented in this encounter Miscellaneous Notes * Telephone Encounter - Juliana Díaz RN - 04/24/2024 1045 EDT Pharmacy change on refill request for adderall XR. The order signed 04/19/24 had not yet been e-prescribed to [facility]. Pt asking prescription be sent to [facility] in [place]. Pt last seen on 12/21/23 by . The [place] Prescription Monitoring System query has been completed per the following requirement(s): Annual Verification. Pended order to Provider. * Telephone Encounter - Michelle Rees - 04/24/2024 1041 EDT Pt called needs the refill for Adderal to be sent to [place], [place]. [place] pick it up at the [facility]. Please call her with questions at [phone]. documented in this encounter Plan of Treatment Upcoming Encounters Date Type Department Care Team (Late st Contact Info) Description 06/08/2024 13:30 EDT Office Visit [facility] [address] [place] [address] Michelle Shannon MD [address] [place] [phone] documented as of this encounter Visit Diagnoses Not on filedocumented in this encounter Discontinued Medications Medication Sig Discontinue Reason Start Date End Da te dextroamphetamine-amphet amine (ADDERALL XR) 30 mg XR capsule Take 1 Capsule by mouth daily. Daily Max: 30 mg 04/25/2024 04/24/2024 documented as of this encounter Care Teams Tourist Home Keeper Relationship Specialty Start Date End Date Michelle Shannon MD [address] [place] [phone] PCP - General 09/08/11 documented as of this encounter
--- OUTSIDE RECORDS SUMMARY | 2024-04-28 15:49 | XMS_ITS | Encounter Summary ---
Author Organization [facility] Address [address] [place] [address] Care Team Providers Care Dentistry Professor Name Role Phone Michelle Shannon MD Primary Care Provider + Reason for Visit * Radiology Services (Routine/Next Available) - Specialty Report Received Specialty Diagnoses / Procedures Referred By Thelma long Referred To Contact Diagnoses Early menopause Procedures DXA BONE DENSITY Michelle Shannon MD [address] [place] [phone] [facility] Referral ID Status Reason Start Date Expiration Date V isits Requested Visits Authorized [id number] Specialty Report Received 12/29/2023 1 1 Encounter Details Date Type Department Care Team (Latest Contact Info) Description 04/19/2024 13:10 EDT Ancillary Procedure [facility] Endocrinology - [address] [address] Early menopause Social History Tobacco Use Types Packs/Day Years [...] place to sleep or slept in a fci (including now)? No 04/29/2023 Interpersonal Safety Answer Date Record ed How often does anyone, inclalex bowers family, hit, punch or physically hurt you? Sometimes 04/29/2023 How often does anyone, myron bowers family, insult, scream, curse or threaten to hurt you? Sometimes 04/29/2023 Sex and Gender Information Value Date Recorded Sex Assigned at Not on file Gender Identity Female 11/10/2020 8:41 EST Sexual Orientation Straight 12/07/2023 23 :06 EDT documented as of this encounter Last Filed Vital Signs Vital Sign Reading Time Taken Comments Blood Pressure - - Pulse - - Temperature - - Respiratory Rate - - Oxygen Saturation - - Inhaled Oxygen Concentration - - Weight 89.6 kg (197 lb 9.6 oz) 04/19/2024 1312 E DT Height 164.2 cm (5' 4.65) 04/19/2024 1312 EDT Body Mass Index 33.24 04/19/2024 1312 EDT documented in this encounter Plan of Treatment Upcoming Encounters Date Type Department Care Team (Late st Contact Info) Description 06/08/2024 13:30 EDT Office Visit [facility], [address] [facility] [address] [place] [address] Michelle Shannon MD [address] [place] [phone] documented as of this encounter Procedures Procedure Name Priority Date/Time Associated Diagnosis Comments DXA BONE DENSITY Routine 04/19/2024 13:12 EDT Early menopause documented in this encounter Results * DXA BONE DENSITY (04/19/2024 13:12 EDT) Anatomical Region Laterality Modality Other Michelle Shannon MD IMG DEXA ORDERAB LES documented in this encounter Visit Diagnoses Diagnosis Early menopause Premature menopause documented in this encounter Care Teams Dentistry Professor Relationship Specialty Start Date End Date Michelle Shannon MD [address] [place] [phone] PCP - General 09/08/11 documented as of this encounter
--- OUTSIDE RECORDS SUMMARY | 2024-04-28 15:50 | XMS_ITS | Encounter Summary ---
Author Organization [facility] Address [address] [place] [address] Care Team Providers Care Historiography Professor Name Role Phone Michelle Shannon MD Primary Care Provider + Encounter Details Date Type Department Care Team (Late st Contact Info) Description 11/25/2023 Orders Only [facility] - [address] [place] [address] Ruslan García MD [address] [place] [phone] Chronic left shoulder pain (Primary Dx) Social History Tobacco Use Types Packs/Day Years [...] place to sleep or slept in a assisted (including now)? No 04/29/2023 Interpersonal Safety Answer [...] Info) Description 06/08/2024 13:30 EDT Office Visit [facility] 550 [facility] [address] [place] [address] Michelle Shannon MD [address] [place] [phone] Scheduled Orders Name Type Priority Associated Diagnoses Orde r Schedule XR SHOULDER LEFT 2 OR MORE VIEWS Imaging Routine Chronic left shoulder pain Expected: 12/26/2023, Expires: 05/27/2025 documented as of this encounter Visit Diagnoses Diagnosis Chronic left shoulder pain- Primary Pain in joint, shoulder region documented in this encounter Care Teams Historiography Professor Relationship Specialty Start Date End Date Michelle Shannon MD [address] [place] [phone] PCP - General 09/08/11 documented as of this encounter
--- OUTSIDE RECORDS SUMMARY | 2024-04-28 15:50 | XMS_ITS | Encounter Summary ---
Author Organization [facility] Address [address] [place] [address] Care Team Providers Care Ict Educator Name Role Phone Michelle Shannon MD Primary Care Provider + Reason for Visit * Reason Onset Date Comments Medications Refill 12/29/2023 Encounter Details Date Type Department Care Team (Late st Contact Info) Description 12/29/2023 Refill [facility] [address] [place] [address] Janna Tamayo, JOSEFINA Medications Refill Social History Tobacco Use Types [...] daily. Daily Max: 30 mg 30 Capsule 12/29/2023 01/27/2024 clonazePAM (KLONOPIN) 0.5 mg tablet Take 1 and 1/2 tab nightly at bedtime 45 Tablet 2 12/29/2023 02/24/2024 documented in this encounter Miscellaneous Notes * Telephone Encounter - Janna Tamayo RN - 12/29/2023 4830 EDT Refill requests documented in this encounter Plan of Treatment Upcoming Encounters Date Type Department Care Team (Late st Contact Info) Description 06/08/2024 13:30 EDT Office Visit [facility] 550 [facility] [address] [place], [place] [phone] Michelle Shannon MD [address] [place] [phone] documented as of this encounter Visit Diagnoses Not on filedocumented in this encounter Discontinued Medications Medication Sig Discontinue Reason Start Date End Da te clonazePAM (KLONOPIN) 0.5 mg tablet Take 1 and 1/2 tab nightly at bedtime Reorder 09/07/2023 12/29/2023 dextroamphetamine-amphet amine (ADDERALL XR) 30 mg XR capsule Take 1 Capsule by mouth daily. Daily Max: 30 mg Reorder 11/30/2023 12/29/2023 documented as of this encounter Care Teams Ict Educator Relationship Specialty Start Date End Date Michelle Shannon MD [address] [place] [phone] PCP - General 09/08/11 documented as of this encounter
--- OUTSIDE RECORDS SUMMARY | 2024-04-28 15:50 | XMS_ITS | Encounter Summary ---
Author Organization [facility] Address [address] [place] [address] Care Team Providers Care Warp Placer Name Role Phone Michelle Shannon MD Primary Care Provider + Reason for Visit * Reason Onset Date Comments Medications Refill 02/28/2024 Encounter Details Date Type Department Care Team (Late st Contact Info) Description 02/28/2024 Refill [facility] 550 [facility] [address] [place], [place] [phone] Michelle Shannon MD [address] [place] [phone] Medications Refill Social History Tobacco [...] place to sleep or slept in a senior living (including now)? No 04/29/2023 Interpersonal Safety Answer [...] Info) Description 06/08/2024 13:30 EDT Office Visit [facility] 550 [facility] [address] [place], [place] [phone] Michelle Shannon MD [address] [place] [phone] documented as of this encounter Visit Diagnoses Not on filedocumented in this encounter Care Teams Warp Placer Relationship Specialty Start Date End Date Michelle Shannon MD [address] [place] [phone] PCP - General 09/08/11 documented as of this encounter
--- OUTSIDE RECORDS SUMMARY | 2024-04-28 15:50 | XMS_ITS | Encounter Summary ---
Author Organization [facility] Address [address] [place] [address] Care Team Providers Care Gatehouse Attendant Name Role Phone Michelle Shannon MD Primary Care Provider + Reason for Visit * Reason Onset Date Comments Medications Refill 07/06/2023 Encounter Details Date Type Department Care Team (Late st Contact Info) Description 07/06/2023 Refill [facility] [address] [place] [phone] Michelle Shannon MD [address] [place] [phone] Medications Refill Social History Tobacco Use [...] place to sleep or slept in a [facility] (including now)? No 04/29/2023 Interpersonal Safety Answer [...] Dispensed Refills Start Date End Da te LORazepam (ATIVAN) 1 mg tablet Take 1 Tablet by mouth 2 times daily. Daily Max: 2 mg 7 Tablet 07/06/2023 08/17/2023 documented in this encounter Miscellaneous Notes * Telephone Encounter - Chelsea Rascon MA - 07/06/2023 4819 EDT Refill Pt called and requested med refill. I do see this may have been d/c. Chelsea Rascon MA documented in this encounter Plan of Treatment Upcoming Encounters Date Type Department Care Team (Late st Contact Info) Description 06/08/2024 13:30 EDT Office Visit [facility], [address] [place] [phone] Michelle Shannon MD [address] [place] [phone] documented as of this encounter Visit Diagnoses Not on filedocumented in this encounter Care Teams Gatehouse Attendant Relationship Specialty Start Date End Date Michelle Shannon MD [address] [place] [phone] PCP - General 09/08/11 documented as of this encounter
--- OUTSIDE RECORDS SUMMARY | 2024-04-28 15:50 | XMS_ITS | Encounter Summary ---
Author Organization [facility] Address [address] [place] [address] Care Team Providers Care Stab Setter And Driller Name Role Phone Michelle Shannon MD Primary Care Provider + Encounter Details Date Type Department Care Team (Late st Contact Info) Description 09/06/2023 Telephone Corwin Elliott MD [address] [address] Michelle Shannon MD [address] [place] [phone] Social History Tobacco Use Types Packs/Day Years [...] Info) Description 06/08/2024 13:30 EDT Office Visit [facility] 550 [facility] [address] [place], [place] [phone] Michelle Shannon MD [address] [place] [phone] documented as of this encounter Visit Diagnoses Not on filedocumented in this encounter Care Teams Stab Setter And Driller Relationship Specialty Start Date End Date Michelle Shannon MD [address] [place] [phone] PCP - General 09/08/11 documented as of this encounter
--- OUTSIDE RECORDS SUMMARY | 2024-04-28 15:50 | XMS_ITS | Encounter Summary ---
Author Organization [facility] Address [address] [place] [address] Care Team Providers Care Car Manager Name Role Phone Michelle Shannon MD Primary Care Provider + Reason for Visit * Reason Onset Date Comments Medications Refill 08/26/2023 Encounter Details Date Type Department Care Team (Late st Contact Info) Description 08/26/2023 Refill [facility] [address] [place], [place] [phone] Michelle Shannon MD [address] [place] [phone] Medications Refill Social History Tobacco [...] place to sleep or slept in a snf (including now)? No 04/29/2023 Interpersonal Safety Answer [...] :06 EDT documented as of this encounter Miscellaneous Notes * Telephone Encounter - Mandi Leon - 08/26/2023 1459 EST refill documented in this encounter Plan of Treatment Upcoming Encounters Date Type Department Care Team (Late st Contact Info) Description 06/08/2024 13:30 EDT Office Visit [facility] [address] [place], [place] [phone] Michelle Shannon MD [address] [place] [phone] documented as of this encounter Visit Diagnoses Not on filedocumented in this encounter Care Teams Car Manager Relationship Specialty Start Date End Date Michelle Shannon MD [address] [place] [phone] PCP - General 09/08/11 documented as of this encounter
--- OUTSIDE RECORDS SUMMARY | 2024-04-28 15:50 | XMS_ITS | Encounter Summary ---
Author Organization [facility] Address [address] [place] [address] Care Team Providers Care Corporate Trust Officer Name Role Phone Michelle Shannon MD Primary Care Provider + Reason for Visit * Reason Comments Coordination Of Care Encounter Details Date Type Department Care Team (Late st Contact Info) Description 12/28/2023 Community Health Team [facility] [address], [address] [place] [address] [facility] [address] [place] [address] Social History Tobacco Use Types Packs/Day Years [...] place to sleep or slept in a correction (including now)? No 04/29/2023 Interpersonal Safety Answer [...] :06 EDT documented as of this encounter Progress Notes * Mony Odom - 12/28/2023 1115 EDT ..Community Health Team Plc Programmer Date: 12/28/23 Referred by: PCP PCP: Michelle Shannon Encounter type: Telephone Call Reason for Referral: Food and heating insecurity. Housing. Notes: Plc Programmer (RC) outreached to [facility] via telelphone call. RC left a voicemail message with a brief reason for the call and RC's contact information. Plan / Action Items: RC will outreach in one week if a return call is not received. Mony Odom 12/28/23 11:15 documented in this encounter Plan of Treatment Upcoming Encounters Date Type Department Care Team (Late st Contact Info) Description 06/08/2024 13:30 EDT Office Visit [facility] [address] [facility] [address] [place] [address] Michelle Shannon MD [address] [place] [phone] documented as of this encounter Visit Diagnoses Not on filedocumented in this encounter Care Teams Corporate Trust Officer Relationship Specialty Start Date End Date Michelle Shannon MD [address] [place] [phone] PCP - General 09/08/11 documented as of this encounter
--- OUTSIDE RECORDS SUMMARY | 2024-04-28 15:50 | XMS_ITS | Encounter Summary ---
Author Organization [facility] Address [address] [place] [address] Care Team Providers Care Councilor Name Role Phone Michelle Shannon MD Primary Care Provider + Reason for Referral * Referral (Routine/Next Available) - Authorization Not Required Specialty Diagnoses / Procedures Referred By [facility] Referred To Contact Multidisciplinary Diagnoses Financial difficulties Micehlle Shannon MD [address] [place] [phone] [facility] Community Health Team [address] [facility], [address] [place] [address] Referral ID Status Reason Start Date Expiration Date Visits Requested Visits Authorized [id number] Authorization Not Required Specialty Services Required 4 1 1 Question Answer Reason for Request: Needs food and fuel assistance. 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 No 04/29/2023 Interpersonal Safety Answer [...] Sign Reading Time Taken Comments Blood Pressure 102/66 12/07/2023 1129 EDT Pulse 107 12/07/2023 1129 EDT Temperature - - Respiratory Rate - - Oxygen Saturation 98% 12/07/2023 1129 EDT Inhaled Oxygen Concentration - - Weight 89.8 kg (198 lb) 12/07/2023 1129 EDT Height 162.6 cm (5' 4.02) 12/07/2023 1129 EDT Body Mass Index 33.97 12/07/2023 1129 EDT documented in this encounter Ordered Prescriptions Prescription Sig Dispensed Refills Start Date End Da te estradiol (ESTRING) 2 mg (7.5 mcg /24 hour) vaginal ring Place 1 Ring vaginally Once for 1 dose. follow package directions 1 Each 3 12/07/2023 documented in this encounter Progress Notes * Michelle Shannon MD - 12/07/2023 1130 EDT Jane Blair 48 y.o. 12/24/2023 Subjective: Chief Complaint Patient presents with Medication Management HPI Jane is following up regarding depression, anxiety, excoriation disorder, narcolepsy, and REM sleepdisorder. She has been struggling financially and is considering looking for a client partner job to support her family. Her brother is legally blind and mother is elderly so neither of them can work. 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 She is also working on other strategies to try to save money has been cleaning out the family storage unit. Due to the recent stress, she has been starting to pick her skin again. She continues to take Abilify, Lexapro and clonazepam daily which is prescribed by her psychiatrist. Since her last visit, she tried buspirone, but stopped it when she did not feel it was helpful. She has a rifle case repairer Rosemary [employer] human services, counselor Gloria, and job counselor Jonas (through [employer]). She is also participating in a DBT group which meets in person weekly. She is not sure of the name of her new psychiatrist. She also has been experiencing escalating pain in her right proximal forearm. She describes a stabbing pain that comes and goes but not affecting range of motion in the arm. Sometimes, she will feel twinges. She wonders if this may be due to knitting for long periods. Jane recently reduced her gabapentin which might be contributing to increasing arm discomfort. She has stretches from her PT, but her therapist has primarily been addressing her chronic left shoulder pain. She has f/u with Dr García next month for shoulder injection. She continues to struggle with menopausal symptoms, but unfortunately she is not a candidate for HRT due to the stroke risk. She tells me today, that she is in a new relationship. Vaginal dryness is an issue and she has been using a lubricant. She also has been noticing some urinary frequency Dr Sheets is following her for her REM sleep disorder and has recommended a sleep study. Jane has requested having this done closer to home, and referral has been placed to the [facility] [place]. Historically her hypersomnolence has been a barrier to employment. Current medications include Adderal XR 30 mg and 2 ritalin in the AM with one ritalin tablet in the afternoon. Her chronic migraines continue to be well-controlled with Topamax 75 mg twice a day. Active Problem List Patient Active Problem List Diagnosis Narcolepsy without cataplexy REM sleep behavior disorder Migraine with aura Episodic mood disorder (HCC-CMS) MDD (major depressive disorder), recurrent episode, moderate (HCC-CMS) GERD without esophagitis Vitamin D deficiency Allergic rhinitis Anxiety Encounter for sterilization [facility] Past Medical History: Diagnosis Date Allergic rhinitis Anxiety Asthma exercise induced, last inhaler use 06/26/20 Depression Does not exercise GERD (gastroesophageal reflux disease) Hearing difficulty Heart murmur as a child History of general anesthesia Insomnia Migraines Narcolepsy REM sleep disorder Pain joints Panic attacks Tremors of nervous system Unspecified cerebral artery occlusion with cerebral infarction Vasovagal syncope last episode 04/2020 Past Surgical History: Procedure Laterality Date BREAST BIOPSY clip in left breast CERVIX LESION DESTRUCTION TONSILLECTOMY 2019 Dr. Dumont TUBAL LIGATION 06/2020 TYMPANOSTOMY TUBE PLACEMENT WISDOM TOOTH EXTRACTION Medications Current Outpatient Medications Medication albuterol 90 mcg/actuation inhaler ARIPiprazole (ABILIFY) 5 mg tablet zolodlk-ignpiktidgaiq-sreouiog (EXCEDRIN MIGRAINE) 250-250-65 mg per tablet betamethasone dipropionate 0.05 % lotion cholecalciferol, Vitamin D3, (VITAMIN D3) 125 mcg (5,000 unit) tablet clonazePAM (KLONOPIN) 0.5 mg tablet dextroamphetamine-amphetamine (ADDERALL XR) 30 mg XR capsule escitalopram oxalate (LEXAPRO) 10 mg tablet estradiol (ESTRING) 2 mg (7.5 mcg /24 hour) vaginal ring fluticasone propionate (FLONASE) 50 mcg/actuation nasal spray gabapentin (NEURONTIN) 100 mg capsule ibuprofen (MOTRIN) 800 mg tablet loratadine (CLARITIN) 10 mg tablet LORazepam (ATIVAN) 1 mg tablet melatonin 10 mg capsule methylphenidate HCl (RITALIN;METHYLIN) 10 mg tablet metroNIDAZOLE (METROGEL) 0.75 % gel mupirocin (BACTROBAN) 2 % ointment omeprazole (PRILOSEC) 20 mg capsule topiramate (TOPAMAX) 50 mg tablet No current facility-administered medications for this visit. Review of Systems Constitutional: Negative for diaphoresis and weight loss. Cardiovascular: Negative for palpitations and leg swelling. Musculoskeletal: Positive for joint pain. Neurological: Positive for tingling and sensory change. Psychiatric/Behavioral: Positive for depression and suicidal ideas. Negative for hallucinations. The patient is nervous/anxious and has insomnia. Forgetful OBJECTIVE: Vitals: BP 102/66 Pulse (!) 107 Ht 162.6 cm (64.02) Wt 89.8 kg (198 lb) LMP 07/08/2020 (Exact Date) Comment: ablation SpO2 98% BMI 33.97 kg/m?? Physical Exam Constitutional: She appears well-developed and overweight. No physical distress. Heart: tachycardia, regular rhythm Skin: Multiple excoriations on the face Neuro: Mildly tremulous Musculoskeletal: Right forearm tender to palpation. Has pain with resisted ulnar deviation and wrist extension Psychiatric: Affect is anxious but not tearful. Her speech is normal. Behavior is cooperative. ASSESSMENT and PLAN Jane was seen today for medication management. Diagnoses and all orders for this visit: Narcolepsy without cataplexy REM sleep behavior disorder Supraspinatus tendinitis, left MDD (major depressive disorder), recurrent episode, moderate (HCC-CMS) Calcific tendinitis of right forearm Perimenopausal Financial difficulties - AMB CONS/FOLLOW UP OUTPATIENT CARE MANAGEMENT - [facility]; Future Other orders - estradiol (ESTRING) 2 mg (7.5 mcg /24 hour) vaginal ring; Place 1 Ring vaginally Once for 1 dose.follow package directions . Major depressive disorder, excoriation disorder, narcolepsy and REM sleep disorder. Continue Lexapro Consider discontinuing melatonin now that it is no longer covered by insurance and effect is questionable, vs trial of Rozerem Continue Adderall XR 30mg in the a.m. with Ritalin, 20mg in the AM and 10mg at noon. Medications are currently being managed by Dr. Sheets. Followed by Dr. Sheets and new psychiatrist Sleep study is scheduled at [facility] in January Once again discussed weaning off Abilify, and will start by reducing to 2.5 mg. 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 Subsequent orthopedic evaluation diagnosed right biceps tendinitis and subacromial impingement. More recently experiencing similar sx in the left shoulder. Acute pain in right forearm c/w tendonitis. Encouraged avoiding overuse of the right arm Encouraged using heat 10 minutes twice a day Continue PT and home exercises (Ana Rm, [facility]) Currently off gabapentin but could restart if pain persists F/u with Dr García next month for left shoulder injection Migraines- generally well-controlled Continue topamax 75mg bid. Monitor metabolic acidosis which is likely a side effect of Topamax Off Maxalt due to taking SSRI Continue ibuprofen 800mg as needed She also uses Excedrin prn but encouraged avoiding this on a daily basis BMP yearly due in March Elevated BMI 34. Difficulty exercising due to hypersomnolence and recent injuries. Unable to take phentermine while on adderall and insurance refused covering Wegovy. She does not have binge eating behaviors and therefore medication like Wellbutrin and naltrexone are less likely to be effective. She is already taking Topamax, and dose was increased from daily to twice daily at her previous visit Continue working on eating a healthy diet low in carbohydrates Continue Topamax 75 mg twice a day to assist with weight loss and for migraine prevention. (Increasing Topamax, and discontinuing gabapentin may have assisted with some weight loss) Increase exercise once her foot is healed Previously discussed yoga and looking into scholarships for gym membership Encouraged weaning Abilify as noted above Goal weight is 160 lb Skin wounds due to excoriation disorder- Has metronidazole and betamethasone cream to use with flares Discussed talking to her therapist about strategies to avoid picking behaviors Menopausal symptoms with vaginal dryness.. Not a candidate for HRT due to migraine history and riskfor stroke Discussed a trial of Estring and she is willing to try this. 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 Might also need help looking for alternative housing Health maintenance Consider DEXA within the year due to history of stress fracture and early menopause. Michelle Shannon MD documented in this encounter Plan of Treatment Upcoming Encounters Date Type Department Care Team (Late st Contact Info) Description 06/08/2024 13:30 EDT Office Visit [facility] [address] [facility] [address] [place] [address] Michelle Shannon MD [address] [place] [phone] Scheduled Referrals Name Type Priority Associated Diagnoses Order Schedule AMB CONS/FOLLOW UP OUTPATIENT CARE MANAGEMENT - [facility] Outpatient Referral Routine/Next Available Financial difficulties Expected: 12/31/2023 (Approximate), Expires: 12/23/2024 documented as of this encounter Visit Diagnoses Diagnosis Narcolepsy without cataplexy- Primary REM sleep behavior disorder Supraspinatus tendinitis, left MDD (major depressive disorder), recurrent episode, moderate ([facility]) Major depressive disorder, recurrent episode, moderate Calcific tendinitis of right forearm Calcium deposits in tendon and bursa Perimenopausal Symptomatic menopausal or female climacteric states Financial difficulties Inadequate material resources documented in this encounter Discontinued Medications Medication Sig Discontinue Reason Start Date End Da te tretinoin (RETIN-A) 0.025 % cream Apply topically to affected area at bedtime. Stat twice weekly, pea sized amount to the whole face. 11/21/2020 12/07/2023 documented as of this encounter Care Teams Councilor Relationship Specialty Start Date End Date Michelle Shannon MD [address] [place] [phone] PCP - General 09/08/11 documented as of this encounter
--- OUTSIDE RECORDS SUMMARY | 2024-04-28 15:50 | XMS_ITS | Encounter Summary ---
Author Organization [facility] Address [address] [place] [address] Care Team Providers Care Sales Ambassador Name Role Phone Michelle Shannon MD Primary Care Provider + Reason for Visit * Reason Onset Date Comments Medications Refill 08/25/2023 Encounter Details Date Type Department Care Team (Late st Contact Info) Description 08/25/2023 Refill [facility] [address] [place], [place] [phone] Jasmeet Sheets MD [address] [facility] [place] [phone] Medications Refill Social History Tobacco [...] Record ed How often does anyone, myron bowers family, hit, punch or physically hurt you? Sometimes 04/29/2023 How often does anyone, breealex elissa family, insult, scream, curse or threaten to hurt you? Sometimes 04/29/2023 Sex and Gender Information Value Date Recorded Sex Assigned at Not on file Gender Identity Female 11/10/2020 8:41 EST Sexual Orientation Straight 12/07/2023 23 :06 EDT documented as of this encounter Ordered Prescriptions Prescription Sig Dispensed Refills Start Date End Da te methylphenidate HCl (RITALIN;METHYLIN) 10 mg tablet 2 tab in AM and 1 tab at noon 90 Tablet 08/30/2023 10/25/2023 documented in this encounter Miscellaneous Notes * Telephone Encounter - Juliana Díaz RN - 08/29/2023 7840 EST Spoke with pt. Clarified which Provider will be managing her stimulants. She said . She hasnot filled her adderall XR script yet as not due. She is out of methylphenidate. Let her know it was pended to but it appears it was cancelled maybe when she reached out to other provider. She has not yet downloaded the diary for completionbut said she will. The [place] Prescription Monitoring System query has been completed per the following requirement(s): Annual Verification. Pended order for the methylphenidate to . * Telephone Encounter - Katiuska Arnett - 08/29/2023 1546 EST Medication Refill Medication(s) Requested: methylphenidate HCl (RITALIN;METHYLIN) 10 mg tablet Pharmacy (reconcile pharmacy list): [id number] - [place], [place] Is patient out of medication? YES, she will be out of medication by tomorrow Katiuska Arnett 5:46 Jane said that PCP told her to contact Dr. Sheets's office for this refill. She would also like to discuss next steps for sleep study and sleep diary. * Telephone Encounter - Juliana Díaz RN - 08/26/2023 1523 EST Message from to the Nurse Pool: After reaching out to us for this RX, she then reached outto PCP. Can you check whether she has this med? Checked VPMS and she has not filled the PCP script yet. The prescription I had pended to had a start date of 09/03 as the pt last filled the medication son 08/04 per VPMS so she should not be due at this time. made aware. Left a message asking patient to call me at the Sleep Program. * Telephone Encounter - Juliana Díaz RN - 08/25/2023 1319 EST Relayed update from to pt regarding diary and likely need for sleep study. Verbalized understanding, no barrier to learning. She asked that the diary be sent to her via [employer]. She said she will need refills on her adderall XR and methylphenidate at this time. Uses the [facility] in [place]. The [place] Prescription Monitoring System query has been completed per the following requirement(s): Annual Verification. Pended order(s) to Provider. * Telephone Encounter - Jasmeet Sheets MD - 08/25/2023 1240 EST Please arrange for Jane to complete a two week sleep diary (send her one in mail or provide link online if you can). Will review when available. She likely will need a PSG due to concern of YUMIKO evolving as she has gotten older (last study 2008)and a 60 lb wt gain. Thank you. * Telephone Encounter - Juliana Díaz RN - 08/25/2023 1020 EST Last seen on 06/15/23 by . Per note med plan Adderrall XR 30 mg in AM with Methylphenidate 10 mg tabs at 2 tabs in AM and 1 tab at noon. Spoke with pt. She states she is tired in afternoon and need to be productive in afternoon. She states the methylphenidate is not working for her at all. Pt requesting additional adderall instead of the methylphenidate. Update to . * Telephone Encounter - Michelle Rees - 08/25/2023 1011 EST Patient called about her dosage of the medication Adderal. She wants to change it. Please call patient at [phone]. documented in this encounter Plan of Treatment Upcoming Encounters Date Type Department Care Team (Late st Contact Info) Description 06/08/2024 13:30 EDT Office Visit [facility] [address] [facility] [address] [place] [address] Michelle Shannon MD [address] [place] [phone] documented as of this encounter Visit Diagnoses Not on filedocumented in this encounter Discontinued Medications Medication Sig Discontinue Reason Start Date End Da te methylphenidate HCl (RITALIN;METHYLIN) 10 mg tablet 2 tab in AM and 1 tab at noon Reorder 07/22/2023 08/29/2023 documented as of this encounter Care Teams Sales Ambassador Relationship Specialty Start Date End Date Michelle Shannon MD [address] [place] [phone] PCP - General 09/08/11 documented as of this encounter
--- OUTSIDE RECORDS SUMMARY | 2024-04-28 15:50 | XMS_ITS | Encounter Summary ---
Author Organization [facility] Address [address] [place] [address] Care Team Providers Care Pasteurizing Supervisor Name Role Phone Michelle Shannon MD Primary Care Provider + Reason for Visit * Reason Onset Date Comments Medications Refill 10/25/2023 Encounter Details Date Type Department Care Team (Late st Contact Info) Description 10/25/2023 Refill [facility] - [address] [phone] Mariann Blair MD [address] [place] [address], Level 2 [place] [phone] Medications Refill Social History Tobacco Use Types [...] and 1 tab at noon 90 Tablet 10/25/2023 12/15/2023 documented in this encounter Miscellaneous Notes * Addendum Note - Dodie Deras RN - 10/25/2023 1042 ESTAddended by: DODIE DERAS on: 10/25/2023 10:42 Modules accepted: Orders * Telephone Encounter - Dodie Deras RN - 10/25/2023 1038 EST Requested Prescriptions Pending Prescriptions Disp Refills methylphenidate HCl (RITALIN;METHYLIN) 10 mg tablet 90 Tablet 0 Si tab in AM and 1 tab at noon Last seen by Dr. Sheets 06/15/23. Follow up scheduled 12/21/23. Dosage verified. The [place] Prescription Monitoring System query has been completed per the following requirement(s): Annual Verification. Order pending for provider review. * Addendum Note - Dodie Deras RN - 10/25/2023 1037 ESTAddended by: DODIE DERAS on: 10/25/2023 10:37 Modules accepted: Orders * Telephone Encounter - Ruslan Yo - 10/25/2023 1023 EST PT requesting med refill for Ritalin Pharmacy : [id number], documented in this encounter Plan of Treatment Upcoming Encounters Date Type Department Care Team (Late st Contact Info) Description 06/08/2024 13:30 EDT Office Visit [facility] [address] [place] [address] Michelle Shannon MD [address] [place] [phone] documented as of this encounter Visit Diagnoses Not on filedocumented in this encounter Discontinued Medications Medication Sig Discontinue Reason Start Date End Da te methylphenidate HCl (RITALIN;METHYLIN) 10 mg tablet 2 tab in AM and 1 tab at noon Reorder 08/30/2023 10/25/2023 documented as of this encounter Care Teams Pasteurizing Supervisor Relationship Specialty Start Date End Date Michelle Shannon MD [address] [place] [phone] PCP - General 09/08/11 documented as of this encounter
--- OUTSIDE RECORDS SUMMARY | 2024-04-28 15:50 | XMS_ITS | Encounter Summary ---
Author Organization [facility] Address [address] [place] [address] Care Team Providers Care Rug Sizer Name Role Phone Michelle Shannon MD Primary Care Provider + Reason for Visit * Reason Onset Date Comments Medications Refill 08/25/2023 Encounter Details Date Type Department Care Team (Late st Contact Info) Description 08/25/2023 Refill Corwin Elliott MD [address] [phone] Michelle Shannon MD [address] [place] [phone] Medications Refill Social History Tobacco Use [...] place to sleep or slept in a fdc (including now)? No 04/29/2023 Interpersonal Safety Answer [...] daily. Daily Max: 30 mg 30 Capsule 08/25/2023 09/28/2023 documented in this encounter Miscellaneous Notes * Telephone Encounter - Mandi Leon - 08/25/2023 1414 EST refill documented in this encounter Plan of Treatment Upcoming Encounters Date Type Department Care Team (Late st Contact Info) Description 06/08/2024 13:30 EDT Office Visit [facility] 550 [facility] [address] [place] [address] Michelle Shannon MD [address] [place] [phone] documented as of this encounter Visit Diagnoses Not on filedocumented in this encounter Discontinued Medications Medication Sig Discontinue Reason Start Date End Da te dextroamphetamine-amphet amine (ADDERALL XR) 30 mg XR capsule Take 1 Capsule by mouth daily. Daily Max: 30 mg Reorder 08/04/2023 08/25/2023 documented as of this encounter Care Teams Rug Sizer Relationship Specialty Start Date End Date Michelle Shannon MD [address] [place] [phone] PCP - General 09/08/11 documented as of this encounter
--- OUTSIDE RECORDS SUMMARY | 2024-04-28 15:50 | XMS_ITS | Encounter Summary ---
Author Organization [facility] Address [address] [place] [address] Care Team Providers Care Educational Technologist Name Role Phone Michelle Shannon MD Primary Care Provider + Reason for Visit * Reason Onset Date Comments Results 03/20/2024 Encounter Details Date Type Department Care Team (Late st Contact Info) Description 03/20/2024 Telephone [facility] [address] [place] [address] [place], [place] [phone] Michelle Shannon MD [address] [place] [phone] Results Social History Tobacco Use Types Packs/Day Years [...] encounter Miscellaneous Notes * Telephone Encounter - Brianna Parker - 03/20/2024 1726 EDT Pt got the results of her sleep study back in [facility], and was directed to our office to have someone call and discuss the results with her. documented in this encounter Plan of Treatment Upcoming Encounters Date Type Department Care Team (Late st Contact Info) Description 06/08/2024 13:30 EDT Office Visit [facility] [address] [place] [address] [place] [address] Michelle Shannon MD [address] [place] [phone] documented as of this encounter Visit Diagnoses Not on filedocumented in this encounter Care Teams Educational Technologist Relationship Specialty Start Date End Date Michelle Shannon MD [address] [place] [phone] PCP - General 09/08/11 documented as of this encounter
--- OUTSIDE RECORDS SUMMARY | 2024-04-28 15:50 | XMS_ITS | Encounter Summary ---
Author Organization [facility] Address [address] [place] [address] Care Team Providers Care Cylinder Checker Name Role Phone Michelle Shannon MD Primary Care Provider + Reason for Visit * Reason Onset Date Comments Medications Refill 02/24/2024 Encounter Details Date Type Department Care Team (Late st Contact Info) Description 02/24/2024 Refill [facility] [address] [facility] [address] [place], [place] [phone] Michelle Shannon MD [address] [place] [phone] Medications Refill Social History Tobacco [...] place to sleep or slept in a prison (including now)? No 04/29/2023 Interpersonal Safety Answer [...] daily. Daily Max: 30 mg 30 Capsule 02/29/2024 03/27/2024 documented in this encounter Miscellaneous Notes * Telephone Encounter - Mandi Leon - 02/24/2024 1506 EDT refill documented in this encounter Plan of Treatment Upcoming Encounters Date Type Department Care Team (Late st Contact Info) Description 06/08/2024 13:30 EDT Office Visit [facility] [address] [facility] [address] [place] [address] Michelle Shannon MD [address] [place] [phone] documented as of this encounter Visit Diagnoses Diagnosis REM sleep behavior disorder- Primary documented in this encounter Discontinued Medications Medication Sig Discontinue Reason Start Date End Da te dextroamphetamine-amphet amine (ADDERALL XR) 30 mg XR capsule Take 1 Capsule by mouth daily. Daily Max: 30 mg Reorder 01/27/2024 02/24/2024 documented as of this encounter Care Teams Cylinder Checker Relationship Specialty Start Date End Date Michelle Shannon MD [address] [place] [phone] PCP - General 09/08/11 documented as of this encounter
--- OUTSIDE RECORDS SUMMARY | 2024-04-28 15:50 | XMS_ITS | Encounter Summary ---
Author Organization [facility] Address [address] [place] [address] Care Team Providers Care Dietary Supervisor Name Role Phone Michelle Shannon MD Primary Care Provider + Reason for Referral * Radiology Services (Routine/Next Available) - Specialty Report Received Specialty Diagnoses / Procedures Referred By Thelma long Referred To Contact Diagnoses Early menopause Procedures DXA BONE DENSITY Michelle Shannon MD [address] [place] [phone] [facility] Referral ID Status Reason Start Date Expiration Date V isits Requested Visits Authorized [id number] Specialty Report Received 12/29/2023 1 1 Reason for Visit * Reason Onset Date Comments Orders (Non Pre-visit) 12/27/2023 Encounter Details Date Type Department Care Team (Late st Contact Info) Description 12/27/2023 Telephone [facility] [address] [facility] [address] [place] [address] Michelle Shannon MD [address] [place] [phone] Orders (Non Pre-visit) Social History Tobacco Use Types Packs/Day Years [...] place to sleep or slept in a long term (including now)? No 04/29/2023 Interpersonal Safety Answer [...] encounter Miscellaneous Notes * Telephone Encounter - Dayna Guzman - 12/27/2023 0922 EDT Pt LM stating she would like to move forward with the DEXA scan. Requesting order be placed. DAYNA WEBB MA documented in this encounter Plan of Treatment Upcoming Encounters Date Type Department Care Team (Late st Contact Info) Description 06/08/2024 13:30 EDT Office Visit [facility] [address] [place] [address] Michelle Shannon MD [address] [place] [phone] documented as of this encounter Results * DXA BONE DENSITY (04/19/2024 13:12 EDT) Anatomical Region Laterality Modality Other Michelle Shannon MD IMG DEXA ORDERAB LES documented in this encounter Visit Diagnoses Diagnosis Early menopause- Primary Premature menopause Closed nondisplaced fracture of fifth metatarsal bone of right foot with delayed healing, subsequent encounter documented in this encounter Care Teams Dietary Supervisor Relationship Specialty Start Date End Date Michelle Shannon MD [address] [place] [phone] PCP - General 09/08/11 documented as of this encounter
--- OUTSIDE RECORDS SUMMARY | 2024-04-28 15:50 | XMS_ITS | Encounter Summary ---
Author Organization [facility] Address [address] [place] [address] Care Team Providers Care Dispatch Coordinator Name Role Phone Michelle Shannon MD Primary Care Provider + Reason for Visit * Reason Onset Date Comments Medications Refill 07/22/2023 Encounter Details Date Type Department Care Team (Late st Contact Info) Description 07/22/2023 Refill [facility] [address] [place] [place] [address] Michelle Shannon MD [address] [place] [phone] Medications Refill Social History Tobacco Use [...] and 1 tab at noon 90 Tablet 07/22/2023 08/29/2023 documented in this encounter Miscellaneous Notes * Telephone Encounter - Chelsea Rascon MA - 07/22/2023 1522 EDT Refill documented in this encounter Plan of Treatment Upcoming Encounters Date Type Department Care Team (Late st Contact Info) Description 06/08/2024 13:30 EDT Office Visit [facility] [address] [place] [address] Michelle Shannon MD [address] [place] [phone] documented as of this encounter Visit Diagnoses Not on filedocumented in this encounter Discontinued Medications Medication Sig Discontinue Reason Start Date End Da te methylphenidate HCl (RITALIN;METHYLIN) 10 mg tablet 2 tab in AM and 1 tab at noon Reorder 2023 07/22/2023 documented as of this encounter Care Teams Dispatch Coordinator Relationship Specialty Start Date End Date Michelle Shannon MD [address] [place] [place] [phone] PCP - General 09/08/11 documented as of this encounter
--- OUTSIDE RECORDS SUMMARY | 2024-04-28 15:50 | XMS_ITS | Encounter Summary ---
Author Organization [facility] Address [address] [place] [address] Care Team Providers Care Embedded Systems Designer Name Role Phone Michelle Shannon MD Primary Care Provider + Reason for Visit * Reason Onset Date Comments Medications Refill 01/26/2024 Encounter Details Date Type Department Care Team (Late st Contact Info) Description 01/26/2024 Refill [facility] [address] [facility] [address] [place], [place] [phone] Michelle Shannon MD [address] [place] [phone] Medications Refill Social History Tobacco [...] daily. Daily Max: 30 mg 30 Capsule 01/27/2024 02/24/2024 methylphenidate HCl (RITALIN;METHYLIN) 10 mg tablet 2 tab in AM and 1 tab at noon 90 Tablet 01/27/2024 03/20/2024 documented in this encounter Miscellaneous Notes * Telephone Encounter - Dayna Guzman - 01/27/2024 1100 EDT Pt called back also requesting refill of Adderall. DAYNA WEBB MA * Telephone Encounter - Dayna Guzman - 01/26/2024 1118 EDT Refill documented in this encounter Plan of Treatment Upcoming Encounters Date Type Department Care Team (Late st Contact Info) Description 06/08/2024 13:30 EDT Office Visit [facility] [address] [place] [address] Michelle Shannon MD [address] [place] [phone] documented as of this encounter Visit Diagnoses Not on filedocumented in this encounter Discontinued Medications Medication Sig Discontinue Reason Start Date End Da te methylphenidate HCl (RITALIN;METHYLIN) 10 mg tablet 2 tab in AM and 1 tab at noon Reorder 12/16/2023 01/26/2024 dextroamphetamine-amphet amine (ADDERALL XR) 30 mg XR capsule Take 1 Capsule by mouth daily. Daily Max: 30 mg Reorder 12/29/2023 01/27/2024 documented as of this encounter Care Teams Embedded Systems Designer Relationship Specialty Start Date End Date Michelle Shannon MD [address] [place] [phone] PCP - General 09/08/11 documented as of this encounter
--- OUTSIDE RECORDS SUMMARY | 2024-04-28 15:50 | XMS_ITS | Encounter Summary ---
Author Organization [facility] Address [address] [place] [address] Care Team Providers Care Rerolling Machine Operator Name Role Phone Michelle Shannon MD Primary Care Provider + Reason for Visit * Reason Onset Date Comments Medications Refill 10/31/2023 Encounter Details Date Type Department Care Team (Late st Contact Info) Description 10/31/2023 Refill [facility] - [address] [place] [address] [place], [place] [phone] Jasmeet Sheets MD [address] [facility]. [address] [place] [phone] Medications Refill Social History Tobacco [...] Sometimes 04/29/2023 How often does anyone, inclalex bowers family, insult, scream, curse or threaten [...] daily. Daily Max: 30 mg 30 Capsule 10/31/2023 11/28/2023 documented in this encounter Miscellaneous Notes * Telephone Encounter - Juliana Díaz RN - 10/31/2023 1035 EST Spoke with pt. We received request for Clonazpam not prescribed by but her PCP. Pt advisedto call her PCP. Verbalized understanding, no barrier to learning. Pt requesting refill on adderallXR only form Sleep. Reminded pt to call when low and not out of med- preferably 3 business days. Pt last seen on 06/15/23 by . The [place] Prescription Monitoring System query has been completed per the following requirement(s): Annual Verification. Pended order(s) to Provider. * Telephone Encounter - Mel Aguilera MA - 10/31/2023 1031 EST Patient returning Rn's call. Transferred call over to the Rn * Telephone Encounter - Juliana Díaz RN - 10/31/2023 0937 EST Left a message returning her call asking patient to call me at the Sleep Program. * Telephone Encounter - Chela Hess - 10/31/2023 0920 EST Pt calls needing refill for RX dextroamphetamine-amphetamine (ADDERALL XR) 30 mg clonazePAM (KLONOPIN) 0.5 mg She is completely out and will not have any for today. Please send these to [facility] in [facility] documented in this encounter Plan of Treatment Upcoming Encounters Date Type Department Care Team (Late st Contact Info) Description 06/08/2024 13:30 EDT Office Visit [facility] [address] [place], [place] [phone] Michelle Shannon MD [address] [place] [phone] documented as of this encounter Visit Diagnoses Not on filedocumented in this encounter Discontinued Medications Medication Sig Discontinue Reason Start Date End Da te dextroamphetamine-amphet amine (ADDERALL XR) 30 mg XR capsule Take 1 Capsule by mouth daily. Daily Max: 30 mg Reorder 09/29/2023 10/31/2023 documented as of this encounter Care Teams Rerolling Machine Operator Relationship Specialty Start Date End Date Michelle Shannon MD [address] [place] [phone] PCP - General 09/08/11 documented as of this encounter
--- OUTSIDE RECORDS SUMMARY | 2024-04-28 15:50 | XMS_ITS | Encounter Summary ---
Author Organization [facility] Address [address] [place] [address] Care Team Providers Care Schedule Checker Name Role Phone Michelle Shannon MD Primary Care Provider + Reason for Visit * Reason Comments Coordination Of Care Encounter Details Date Type Department Care Team (Late st Contact Info) Description 01/19/2024 Community Health Team [facility] [address], [address] [place] [address] [facility] Assistance Program [address] [place] [address] Social History Tobacco Use Types Packs/Day Years [...] encounter Progress Notes * Mony Odom - 01/19/2024 1040 EDT ..Community Health Team Crossbar Frame Wirer Date: 01/19/24 Referred by: PCP PCP: Michelle Shannon Encounter type: Telephone Call Notes: Crossbar Frame Wirer (RC) outreached to [facility] via telephone call to follow up regarding the previousphone call and email RC sent to [facility] on 12.29.2023 (which included resources to assist with past due utility bills). RC left a voicemail message with contact information and brief explanation for the call. Plan / Action Items: RC will outreach in two weeks if a return call is not received. Mony Odom 01/19/24 10:40 documented in this encounter Plan of Treatment Upcoming Encounters Date Type Department Care Team (Late st Contact Info) Description 06/08/2024 13:30 EDT Office Visit [facility] [address] [place] [address] Michelle Shannon MD [address] [place] [phone] documented as of this encounter Visit Diagnoses Not on filedocumented in this encounter Care Teams Schedule Checker Relationship Specialty Start Date End Date Michelle Shannon MD [address] [place] [phone] PCP - General 09/08/11 documented as of this encounter
--- OUTSIDE RECORDS SUMMARY | 2024-04-28 15:50 | XMS_ITS | Encounter Summary ---
Author Organization [facility] Address [address] [place] [address] Care Team Providers Care Job Printer Apprentice Name Role Phone Michelle Shannon MD Primary Care Provider + Reason for Visit * Reason Onset Date Comments Medications Refill 09/28/2023 Encounter Details Date Type Department Care Team (Late st Contact Info) Description 09/28/2023 Refill [facility] [address] [facility] [place] [address] [place], [place] [phone] Michelle Shannon MD [address] [place] [phone] Medications Refill Social History Tobacco [...] place to sleep or slept in a nursing home (including now)? No 04/29/2023 Interpersonal Safety Answer [...] daily. Daily Max: 30 mg 30 Capsule 09/29/2023 10/31/2023 documented in this encounter Miscellaneous Notes * Telephone Encounter - Chely Richards MA - 09/28/2023 1119 EST Patient calling into [facility] Neurology clinic refill line requesting a refill for: dextroamphetamine-amphetamine (ADDERALL XR) 30 mg XR capsule Summary: Take 1 Capsule by mouth daily. Daily Max: 30 mg, 30 mg, oral, DAILY Starting Kell 08/25/2023, Disp-30 Capsule, R-0 Note dose reduction. Normal Last written: 08/25/2023 w/ 0 refills Last seen: 09/06/2023 Next appt: 12/06/[address] [place] [address] documented in this encounter Plan of Treatment Upcoming Encounters Date Type Department Care Team (Late st Contact Info) Description 06/08/2024 13:30 EDT Office Visit [facility] [address] [place], [place] [phone] Michelle Shannon MD [address] [place] [phone] documented as of this encounter Visit Diagnoses Not on filedocumented in this encounter Discontinued Medications Medication Sig Discontinue Reason Start Date End Da te dextroamphetamine-amphet amine (ADDERALL XR) 30 mg XR capsule Take 1 Capsule by mouth daily. Daily Max: 30 mg Reorder 08/25/2023 09/28/2023 documented as of this encounter Care Teams Job Printer Apprentice Relationship Specialty Start Date End Date Michelle Shannon MD [address] [place] [phone] PCP - General 09/08/11 documented as of this encounter
--- OUTSIDE RECORDS SUMMARY | 2024-04-28 15:50 | XMS_ITS | Encounter Summary ---
Author Organization [facility] Address [address] [place] [address] Care Team Providers Care Slab Miller Operator Name Role Phone Michelle Shannon MD Primary Care Provider + Reason for Visit * Reason Onset Date Comments Medication Adherence 08/24/2023 Encounter Details Date Type Department Care Team (Late st Contact Info) Description 08/24/2023 Telephone [facility] [address] [place] [address] Michelle Shannon MD [address] [place] [phone] Medication Adherence Social History Tobacco Use Types Packs/Day Years [...] * Telephone Encounter - Dayna Guzman - 08/24/2023 1435 EST Pt LM stating her Ritalin has not been effective enough so she has started to take Adderall 30 mg XR BID instead of once daily along with her current dosing of Ritalin. Pt asking if Dr. Shannon is OKwith this increase and is requesting scripts be updated at the pharmacy. DAYNA WEBB MA documented in this encounter Plan of Treatment Upcoming Encounters Date Type Department Care Team (Late st Contact Info) Description 06/08/2024 13:30 EDT Office Visit [facility] 550 [facility] [address] [place] [address] Michelle Shannon MD [address] [place] [phone] documented as of this encounter Visit Diagnoses Not on filedocumented in this encounter Care Teams Slab Miller Operator Relationship Specialty Start Date End Date Michelle Shannon MD [address] [place] [phone] PCP - General 09/08/11 documented as of this encounter
--- OUTSIDE RECORDS SUMMARY | 2024-04-28 15:50 | XMS_ITS | Encounter Summary ---
Author Organization [facility] Address [address] [place] [address] Care Team Providers Care Beater Room Supervisor Name Role Phone Michelle Shannon MD Primary Care Provider + Encounter Details Date Type Department Care Team (Late st Contact Info) Description 02/24/2024 Orders Only [facility] [address] [place], [place] [phone] Michelle Shannon MD [address] [place] [phone] Social History Tobacco Use Types Packs/Day [...] Dispensed Refills Start Date End Da te clonazePAM (KLONOPIN) 0.5 mg tablet Take 1 and 1/2 tab nightly at bedtime 45 Tablet 2 02/24/2024 documented in this encounter Plan of Treatment Upcoming Encounters Date Type Department Care Team (Late st Contact Info) Description 06/08/2024 13:30 EDT Office Visit [facility] 550 [facility] [address] [place] [address] Michelle Shannon MD [address] [place] [phone] documented as of this encounter Visit Diagnoses Not on filedocumented in this encounter Discontinued Medications Medication Sig Discontinue Reason Start Date End Da te clonazePAM (KLONOPIN) 0.5 mg tablet Take 1 and 1/2 tab nightly at bedtime Reorder 12/29/2023 02/24/2024 documented as of this encounter Care Teams Beater Room Supervisor Relationship Specialty Start Date End Date Michelle Shannon MD [address] [place] [phone] PCP - General 09/08/11 documented as of this encounter
--- OUTSIDE RECORDS SUMMARY | 2024-04-28 15:50 | XMS_ITS | Encounter Summary ---
Author Organization [facility] Address [address] [place] [address] Care Team Providers Care Dry Ice Machine Operator Name Role Phone Michelle Shannon MD Primary Care Provider + Reason for Visit * Reason Onset Date Comments Medications Refill 08/04/2023 Encounter Details Date Type Department Care Team (Late st Contact Info) Description 08/04/2023 Refill Corwin Elliott MD [address] [phone] Michelle Shannon MD [address] [place] [phone] Medications Refill Social History Tobacco Use [...] daily. Daily Max: 30 mg 30 Capsule 08/04/2023 08/25/2023 documented in this encounter Miscellaneous Notes * Telephone Encounter - Dayna Guzman - 08/04/2023 2444 EST Refill documented in this encounter Plan of Treatment Upcoming Encounters Date Type Department Care Team (Late st Contact Info) Description 06/08/2024 13:30 EDT Office Visit [facility] [address] [facility] [address] [place] [address] Michelle Shannon MD [address] [place] [phone] documented as of this encounter Visit Diagnoses Not on filedocumented in this encounter Discontinued Medications Medication Sig Discontinue Reason Start Date End Da te dextroamphetamine-amphet amine (ADDERALL XR) 30 mg XR capsule Take 1 Capsule by mouth daily. Daily Max: 30 mg Reorder 2023 08/04/2023 documented as of this encounter Care Teams Dry Ice Machine Operator Relationship Specialty Start Date End Date Michelle Shannon MD [address] [place] [phone] PCP - General 09/08/11 documented as of this encounter
--- OUTSIDE RECORDS SUMMARY | 2024-04-28 15:50 | XMS_ITS | Encounter Summary ---
Author Organization [facility] Address [address] [place] [address] Care Team Providers Care Business Intelligence Engineer Name Role Phone Michelle Shannon MD Primary Care Provider + Reason for Visit * Reason Onset Date Comments Medications Refill 09/29/2023 Encounter Details Date Type Department Care Team (Late st Contact Info) Description 09/29/2023 Telephone [facility] Sleep Program - [address] [phone] Jasmeet Sheets MD 111 [facility]. [address] [place] [address] Medications Refill Social History Tobacco [...] place to sleep or slept in a mcc (including now)? No 04/29/2023 Interpersonal Safety Answer [...] Telephone Encounter - Juliana Díaz RN - 09/30/2023 1330 EST Last seen on 06/15/23 by . Refill request for adderall XR. filled medication yesterday to [facility]. for pt letting her know . * Telephone Encounter - Michelle Chao - 09/29/2023 1450 EST Jane was calling in this afternoon needing to request a refill on one of her medications. She only has one capsule left. The medication is for, Medication Refill Medication(s) Requested: dextroamphetamine-amphetamine (ADDERALL XR) 30 mg XR capsule Pharmacy (reconcile pharmacy list): [id number] - [place], [place] - [address] [place] [address] OF [facility] [[id number]] Is patient out of medication? Yes Picking up/mailing (location)/calling in/eprescribe? E-prescribe 30 day supply/90 day supply? Thank you Michelle Chao 414:51 documented in this encounter Plan of Treatment Upcoming Encounters Date Type Department Care Team (Late st Contact Info) Description 06/08/2024 13:30 EDT Office Visit [facility] [address] [place], [place] [phone] Michelle Shannon MD [address] [place] [phone] documented as of this encounter Visit Diagnoses Not on filedocumented in this encounter Care Teams Business Intelligence Engineer Relationship Specialty Start Date End Date Michelle Shannon MD [address] [place] [phone] PCP - General 09/08/11 documented as of this encounter
--- OUTSIDE RECORDS SUMMARY | 2024-04-28 15:50 | XMS_ITS | Encounter Summary ---
Author Organization [facility] Address [address] [place] [address] Care Team Providers Care Ui Engineer Name Role Phone Michelle Shannon MD Primary Care Provider + Reason for Visit * Reason Onset Date Comments Medications Refill 12/13/2023 Encounter Details Date Type Department Care Team (Late st Contact Info) Description 12/13/2023 Refill [facility] - [address] [place] [address] [place], [place] [address] Jasmeet Sheets MD 111 [facility]. [address] [place] [address] Medications Refill Social History Tobacco [...] and 1 tab at noon 90 Tablet 12/16/2023 01/26/2024 documented in this encounter Miscellaneous Notes * Telephone Encounter - Juliana Díaz RN - 12/16/2023 0934 EDT LM for pt letting know sent her requested script to her pharmacy and to call us if any further questions. * Telephone Encounter - Michelle Rees - 12/15/2023 1431 EDT Patient is out of her prescription for Ritalin. Please call her when filled at [phone]. * Telephone Encounter - Juliana Díaz RN - 12/13/2023 1521 EDT Pt last seen on 06/15/23 by . Refill request for ritalin. The [place] Prescription Monitoring System query has been completed per the following requirement(s): Annual Verification. Pended order(s) to Provider. * Telephone Encounter - Abbey Powell - 12/13/2023 1144 EDT Pt calling in for a refill: Ritalin 10 mg [facility] [place], [place] [phone] documented in this encounter Plan of Treatment Upcoming Encounters Date Type Department Care Team (Late st Contact Info) Description 06/08/2024 13:30 EDT Office Visit [facility] [address] [place], [place] [phone] Michelle Shannon MD [address] [place] [phone] documented as of this encounter Visit Diagnoses Not on filedocumented in this encounter Discontinued Medications Medication Sig Discontinue Reason Start Date End Da te methylphenidate HCl (RITALIN;METHYLIN) 10 mg tablet 2 tab in AM and 1 tab at noon Reorder 10/25/2023 12/15/2023 documented as of this encounter Care Teams Ui Engineer Relationship Specialty Start Date End Date Michelle Shannon MD [address] [place] [phone] PCP - General 09/08/11 documented as of this encounter
--- OUTSIDE RECORDS SUMMARY | 2024-04-28 15:50 | XMS_ITS | Encounter Summary ---
Author Organization [facility] Address [address] [place] [address] Care Team Providers Care E Mail System Administrator Name Role Phone Michelle Shannon MD Primary Care Provider + Reason for Visit * Reason Onset Date Comments Appointment Related 03/26/2024 Medications Refill 03/26/2024 Encounter Details Date Type Department Care Team (Late st Contact Info) Description 03/26/2024 Refill [facility] Sleep Program - [address] [place] [address] [place] [phone] Jasmeet Sheets MD 111 [facility]. [address] [place] [address] Appointment Related; Medications Refill Social History Tobacco Use Types [...] place to sleep or slept in a retirement (including now)? No 04/29/2023 Interpersonal Safety Answer [...] daily. Daily Max: 30 mg 30 Capsule 03/28/2024 04/19/2024 documented in this encounter Miscellaneous Notes * Addendum Note - Artemio Harkins RN - 03/27/2024 0740 EDTAddended by: ARTEMIO HARKINS on: 03/27/2024 07:40 Modules accepted: Orders * Telephone Encounter - Artemio Harkins RN - 03/27/2024 0737 EDT Request for adderall XR refill. Pt last seen on 12/21/23 by . The [place] Prescription Monitoring System query has been completed per the following requirement(s): Annual Verification. Pended order(s) to Provider. * Telephone Encounter - Mel Aguilera MA - 03/26/2024 1557 EDT Patient called to get a refill on her adderrall. Please send to [facility]. She has 2 left * Telephone Encounter - Mel Aguilera MA - 03/26/2024 0938 EDT Left message on machine Please schedule follow up w/ Pt per . for results documented in this encounter Plan of Treatment Upcoming Encounters Date Type Department Care Team (Late st Contact Info) Description 06/08/2024 13:30 EDT Office Visit [facility] [address] [place], [place] [phone] Michelle Shannon MD [address] [place] [phone] documented as of this encounter Visit Diagnoses Not on filedocumented in this encounter Discontinued Medications Medication Sig Discontinue Reason Start Date End Da te dextroamphetamine-amphet amine (ADDERALL XR) 30 mg XR capsule Take 1 Capsule by mouth daily. Daily Max: 30 mg Reorder 02/29/2024 03/27/2024 documented as of this encounter Care Teams E Mail System Administrator Relationship Specialty Start Date End Date Michelle Shannon MD [address] [place] [phone] PCP - General 09/08/11 documented as of this encounter
--- OUTSIDE RECORDS SUMMARY | 2024-04-28 15:50 | XMS_ITS | Encounter Summary ---
Author Organization [facility] Address [address] [place] [address] Care Team Providers Care Web Applications Architect Name Role Phone Michelle Shannon MD Primary Care Provider + Reason for Visit * Reason Onset Date Comments Medications Refill 11/28/2023 Encounter Details Date Type Department Care Team (Late st Contact Info) Description 11/28/2023 Refill [facility] Neurophysiology - [facility] [address] [place] [address] Jasmeet Sheets MD 111 [facility]. [address] [place] [address] Medications Refill Social History Tobacco [...] daily. Daily Max: 30 mg 30 Capsule 11/30/2023 12/29/2023 documented in this encounter Miscellaneous Notes * Telephone Encounter - Cathlene Aguilera, RN - 11/28/2023 1618 EST Requested Prescriptions Pending Prescriptions Disp Refills dextroamphetamine-amphetamine (ADDERALL XR) 30 mg XR capsule 30 Capsule 0 Sig: Take 1 Capsule by mouth daily. Daily Max: 30 mg Last visit with Dr. Sheets 06/15/23. Next visit scheduled 12/21/23. Dosage verified. The [place] Prescription Monitoring System query has been completed per the following requirement(s): Annual Verification. Last filled 11/01/23. Order pending for provider review. * Telephone Encounter - Terry Liu - 11/28/2023 4402 EST Medication(s) Requested: dextroamphetamine-amphetamine (ADDERALL XR) 30 mg XR capsule Preferred Pharmacy: [id number] AT [facility] [phone] Is patient out of medication? Unknown--close to out Last Refill Date: 10/31/23 Last Visit Date with Ordering Provider: 06/15/23 Next Non-Acute Visit Date Scheduled with Care Team: Yes. Terry Liu 11/28/2023 15:59 documented in this encounter Plan of Treatment Upcoming Encounters Date Type Department Care Team (Late st Contact Info) Description 06/08/2024 13:30 EDT Office Visit [facility] [address] [place] [address] Michelle Shannon MD [address] [place] [phone] documented as of this encounter Visit Diagnoses Not on filedocumented in this encounter Discontinued Medications Medication Sig Discontinue Reason Start Date End Da te dextroamphetamine-amphet amine (ADDERALL XR) 30 mg XR capsule Take 1 Capsule by mouth daily. Daily Max: 30 mg Reorder 10/31/2023 11/28/2023 documented as of this encounter Care Teams Web Applications Architect Relationship Specialty Start Date End Date Michelle Shannon MD [address] [place] [phone] PCP - General 09/08/11 documented as of this encounter
--- OUTSIDE RECORDS SUMMARY | 2024-04-28 15:50 | XMS_ITS | Encounter Summary ---
Author Organization [facility] Address [address] [place] [address] Care Team Providers Care Dehorner Name Role Phone Michelle Shannon MD Primary Care Provider + Reason for Referral * Consult (Routine/Next Available) - Closed Specialty Diagnoses / Procedures Referred By Controlo t Referred To Contact Sleep Medicine Diagnoses Narcolepsy without cataplexy REM sleep behavior disorder Michelle Shannon MD [address] [place] [phone] Maggie Nicole MD [address] [place] [phone] Referral ID Status Reason Start Date Expiration Date V isits Requested Visits Authorized [id number] Closed Specialty Services Required 11/22/2023 1 1 Question Answer Reason for Request: Narcolepsy and REM sleep disorder Comments Send last note from Dr Sheets, my last OV note, last note with Dean Turner 2013 and shiva Quezada Note 2008, Reason for Visit * Reason Onset Date Comments Referral Request 11/22/2023 Encounter Details Date Type Department Care Team (Late st Contact Info) Description 11/22/2023 Telephone [facility] 550 [facility] [address] [place] [address] Michelle Shannon MD [address] [place] [phone] Referral Request Social History Tobacco Use Types Packs/Day Years [...] * Telephone Encounter - Brianna Parker - 11/22/2023 7254 EST Pt moved to the [facility] recently, and would like a referral sent to [facility] to take over care for her narcolepsy. She gave the fax number [phone] documented in this encounter Plan of Treatment Upcoming Encounters Date Type Department Care Team (Late st Contact Info) Description 06/08/2024 13:30 EDT Office Visit [facility] [address] [place], [place] [phone] Michelle Shannon MD [address] [place] [phone] Scheduled Referrals Name Type Priority Associated Diagnoses Order Schedule AMB CONS/FOLLOW UP SLEEP MEDICINE Outpatient Referral Routine/Next Available Narcolepsy without cataplexy REM sleep behavior disorder Expected: 12/21/2023 (Approximate), Expires: 11/22/2024 documented as of this encounter Visit Diagnoses Diagnosis Narcolepsy without cataplexy- Primary REM sleep behavior disorder documented in this encounter Care Teams Dehorner Relationship Specialty Start Date End Date Michelle Shannon MD [address] [place] [phone] PCP - General 09/08/11 documented as of this encounter
--- OUTSIDE RECORDS SUMMARY | 2024-04-28 15:50 | XMS_ITS | Encounter Summary ---
Author Organization [facility] Address [address] [place] [address] Care Team Providers Care Long Term Care Pharmacist Name Role Phone Michelle Shannon MD Primary Care Provider + Reason for Visit * Reason Onset Date Comments Medications Refill 10/16/2023 Encounter Details Date Type Department Care Team (Late st Contact Info) Description 10/16/2023 Refill [facility] 550 [facility] [address] [place], [place] [phone] Michelle Shannon MD [address] [place] [phone] Medications Refill Social History Tobacco [...] daily. Daily Max: 2 mg 7 Tablet 10/18/2023 documented in this encounter Plan of Treatment Upcoming Encounters Date Type Department Care Team (Late st Contact Info) Description 06/08/2024 13:30 EDT Office Visit [facility] 550 [facility] [address] [place] [address] Michelle Shannon MD [address] [place] [phone] documented as of this encounter Visit Diagnoses Not on filedocumented in this encounter Discontinued Medications Medication Sig Discontinue Reason Start Date End Da te LORazepam (ATIVAN) 1 mg tablet Take 1 Tablet by mouth 2 times daily. Daily Max: 2 mg Reorder 08/17/2023 10/16/2023 documented as of this encounter Care Teams Long Term Care Pharmacist Relationship Specialty Start Date End Date Michelle Shannon MD [address] [place] [phone] PCP - General 09/08/11 documented as of this encounter
--- OUTSIDE RECORDS SUMMARY | 2024-04-28 15:50 | XMS_ITS | Encounter Summary ---
Author Organization [facility] Address [address] [place] [address] Care Team Providers Care Hygiene Coordinator Name Role Phone Michelle Shannon MD Primary Care Provider + Reason for Visit * Reason Comments Jaw Pain Right side, in front of ear. Unlocked jaw forcefully last week. Pain intermittent, hurts to chew, especially hard foods. Bite Encounter Details Date Type Department Care Team (Latest Contact Info) Description 03/05/2024 13:30 EDT Office Visit [facility] [address] [facility] [address] [place] [address] Michelle Shannon MD [address] [place] [phone] BMI 34.0-34.9,adult (Primary Dx); REM sleep behavior disorder; Narcolepsy without cataplexy; MDD (major depressive disorder), recurrent episode, moderate ([facility]); Arthralgia of right temporomandibular joint Social History Tobacco Use Types Packs/Day Years [...] place to sleep or slept in a residential (including now)? No 04/29/2023 Interpersonal Safety Answer [...] (98.6 ??F) 03/05/2024 1339 EDT Respiratory Rate - - Oxygen Saturation 97% 03/05/2024 1339 EDT Inhaled Oxygen Concentration - - Weight 91 kg (200 lb 9.6 oz) 03/05/2024 1339 EDT declined Height - - Body Mass Index 34.41 12/07/2023 1129 EDT documented in this encounter Ordered Prescriptions Prescription Sig Dispensed Refills Start Date End Da te gabapentin (NEURONTIN) 100 mg capsule Take 1 Capsule by mouth daily. 1 at hs 60 Capsule 1 03/11/2024 cyclobenzaprine (FLEXERIL) 5 mg tablet Take 1 Tablet by mouth every 8 hours as needed for Muscle Spasms. 30 Tablet 03/05/2024 topiramate (TOPAMAX) 50 mg tablet TAKE 2 TABLETS BY MOUTH TWICE DAILY 360 Tablet 1 03/05/2024 gabapentin (NEURONTIN) 100 mg capsule Take 1 Capsule by mouth daily. 1 at hs 60 Capsule 1 03/05/2024 03/11/2024 documented in this encounter Progress Notes * Michelle Shannon MD - 03/05/2024 1330 EDT Jane Blair 48 y.o. 03/11/2024 Subjective: Chief Complaint Patient presents with Jaw Pain Right side, in front of ear. Unlocked jaw forcefully last week. Pain intermittent, hurts to chew, especially hard foods. Mark Lara is following up regarding depression, anxiety, excoriation disorder, narcolepsy, and REM sleepdisorder. For the past week, she has been having some pain in her right ear. This seemed to start after an episode where her right jaw locked while eating. She was able to unlock the joint, but has been havingpain in the ear since then. She also hears popping in the joint. It hurts to chew. She cut back on Abilify to 2.5 mg, but noted she was having increased anxiety and therefore returned to the 5 mg dose. In addition to Abilify, she is taking Lexapro and clonazepam daily. She also takes Ritalin for REM sleep disorder. Dr. Sheets had recommended a follow-up sleep study for her REM sleep disorder, and this is scheduled tonight. Otherwise, things have been difficult this month due to her brother detoxing from alcohol. He is now scheduled for a TIPS procedure and Jane is trying to besupportive. When her anxiety level is high, she tends to pick at her skin. She has several open areas today. She is still connected to a case management specialist (Rosemary) at [facility] [employer], counselor Gloria, and job counselor Jonas (through [email or web address]). She is also participating in a DBT group which meets in person weekly. She is still not able to recall the name e of her new psychiatrist. At her last visit, she was having ongoing stabbing pain in her forearm which may have correlated toreduction in gabapentin. Today, she reports her discomfort is stable..She was scheduled to see Dr García in December, but it appears that she did not show for this appointment. Her chronic migraines continue to be well-controlled with Topamax 75 mg twice a day. Active Problem List Patient Active Problem List Diagnosis Narcolepsy without cataplexy REM sleep behavior disorder Migraine with aura Episodic mood disorder (HCC-CMS) MDD (major depressive disorder), recurrent episode, moderate (HCC-CMS) GERD without esophagitis Vitamin D deficiency Allergic rhinitis Anxiety Encounter for sterilization [facility] Past Medical History: Diagnosis Date Allergic rhinitis [...] mcg/actuation inhaler ARIPiprazole (ABILIFY) 5 mg tablet nzcgogh-hrnhgowxbcyck-vxyxdbvw (EXCEDRIN MIGRAINE) 250-250-65 mg per tablet betamethasone dipropionate 0.05 % lotion cholecalciferol, Vitamin D3, (VITAMIN D3) 125 mcg (5,000 unit) tablet clonazePAM (KLONOPIN) 0.5 mg tablet cyclobenzaprine (FLEXERIL) 5 mg tablet dextroamphetamine-amphetamine (ADDERALL XR) 30 mg [...] Cardiovascular: Negative for palpitations and leg swelling. Genitourinary: Positive for frequency. Musculoskeletal: Positive for joint pain. Neurological: Positive for tingling and sensory change. Endo/Heme/Allergies: Positive for polydipsia. Psychiatric/Behavioral: Positive for depression and suicidal ideas. Negative for hallucinations. The patient is nervous/anxious and has insomnia. Forgetful OBJECTIVE: Vitals: BP 110/70 Pulse 97 Temp 37 ??C (98.6 ??F) (Temporal) Wt 91 kg (200 lb 9.6 oz) Comment: declined LMP 07/08/2020 (Exact Date) Comment: ablation SpO2 97% BMI 34.41 kg/m?? Physical Exam Constitutional: She appears well-developed and overweight. No physical distress. Ears: Both ear canals are clear. Tympanic membranes appear normal. Mouth: Right TMJ tenderness, although tracking is without crepitus Heart: borderline tachycardia, regular rhythm Skin: Multiple excoriations on the face Neuro: Mildly tremulous Psychiatric: Affect is anxious but not tearful. Her speech is normal. Behavior is cooperative. ASSESSMENT and PLAN Jane was seen today for jaw pain. Diagnoses and all orders for this visit: BMI 34.0-34.9,adult - POCT HEMOGLOBIN A1C REM sleep behavior disorder Narcolepsy without cataplexy MDD (major depressive disorder), recurrent episode, moderate ([facility]) Other orders - Discontinue: gabapentin (NEURONTIN) 100 mg capsule; Take 1 Capsule by mouth daily. 1 at hs - topiramate (TOPAMAX) 50 mg tablet; TAKE 2 TABLETS BY MOUTH TWICE DAILY - cyclobenzaprine (FLEXERIL) 5 mg tablet; Take 1 Tablet by mouth every 8 hours as needed for MuscleSpasms. (Patient not taking: Reported on 03/06/2024) - gabapentin (NEURONTIN) 100 mg capsule; Take 1 Capsule by mouth daily. 1 at hs . Major depressive disorder, excoriation disorder, narcolepsy and REM sleep disorder. Continue Lexapro 20mg Consider discontinuing melatonin now that it is no longer covered by insurance and effect is questionable, vs trial of Rozerem Continue Adderall XR 30mg in the a.m. with Ritalin, 20mg in the AM and 10mg at noon. Medications are currently being managed by Dr. Sheets. Followed b new psychiatrist Sleep study is [facility] [place] [facility] Continue Abilify 5mg Clonazepam 0.5 mg at bedtime for sleep [...] diagnosed right biceps tendinitis and subacromial impingement. Symptoms are currently doing better. Completed PT and has home exercises (Ana R[facility], [facility]) Continue low-dose gabapentin 100 mg at bedtime Missed appt with Dr García for left shoulder injection Sx currently stable, will hold off on new referral at this time Migraines- generally well-controlled Continue topamax 100mg bid,. Monitor metabolic acidosis which is likely a side effect of Topamax Off Maxalt due to taking SSRI Continue ibuprofen 800mg as needed She also uses Excedrin prn but encouraged avoiding this on a daily basis BMP yearly due next visit Elevated BMI 34. Difficulty exercising due to hypersomnolence and recent injuries. Unable to take phentermine while on adderall and insurance refused covering Wegovy. She does not have binge eating behaviors and therefore medication like Wellbutrin and naltrexone are less likely to be effective. She is already taking Topamax Continue working on eating a healthy diet low in carbohydrates Continue Topamax 100 mg twice a day which is at max dose Increase exercise once her foot is healed Previously discussed yoga and looking into scholarships for gym Gabapentin and Abilify may be interfering with weight loss, but she has not tolerated fully tapering off. Will consider another refill request for Wegovy when there is better coverage for the medication Goal weight is 160 lb Skin wounds due to excoriation disorder- Has metronidazole and betamethasone cream to use with flares Continue DBT Menopausal symptoms with vaginal dryness.. Not a candidate for HRT due to migraine history and riskfor stroke Discussed a trial of Estring, she has the script and has not tried it yet. Consider bringing to netappt for insertion in office and to teach her how to self manage Right ear pain c/w TMJ pain and locking Advised using heat 10 minutes twice a day She was prescribed Flexeril 5 mg 3 times a day as needed for jaw pain and spasm Consider PT if her symptoms are persisting Could also consider follow-up with a TMJ specialist, possibly Dr. Larios who took over Dr. Nunez's practice. Financial strain She previously mentioned working with her ability to find part-time work, but we did not readdress today where she was at with this process. At her last visit, she was referred back to [facility] but needs to go through [facility] maintenance DEXA scheduled next month Michelle Shannon MD documented in this encounter Plan of Treatment Upcoming Encounters Date Type Department Care Team (Late st Contact Info) Description 06/08/2024 13:30 EDT Office Visit [facility] [address] [facility] [address] [place] [address] Michelle Shannon MD [address] [place] [phone] documented as of this encounter Procedures Procedure Name Priority Date/Time Associated Diagnosis Comments POCT HEMOGLOBIN A1C Routine 03/05/2024 BMI 34.0-34.9,adult documented in this encounter Results * POCT HEMOGLOBIN A1C (03/05/2024) Hemoglobin A1c, POC 5.7 5.7 % [facility] POINT OF CARE Blood CAPILLARY BLOOD / Unknown 03/05/2024 Michelle Shannon MD POINT OF CARE [facility] ORDERABLES [facility] POINT OF CARE documented in this encounter Visit Diagnoses Diagnosis BMI 34.0-34.9,adult- Primary Body Mass Index 34.0-34.9, adult REM sleep behavior disorder Narcolepsy without cataplexy MDD (major depressive disorder), recurrent episode, moderate ([facility]) Major depressive disorder, recurrent episode, moderate Arthralgia of right temporomandibular joint Arthralgia of temporomandibular joint documented in this encounter Discontinued Medications Medication Sig Discontinue Reason Start Date End Da te gabapentin (NEURONTIN) 100 mg capsule Take 1 Capsule by mouth daily. 2 po at bedtime for 2 weeks, then reduce to 1 po at hs. Order modification 09/06/2023 03/05/2024 topiramate (TOPAMAX) 50 mg tablet TAKE 1 AND 1/2 TABLETS BY MOUTH TWICE DAILY Order modification 06/07/2023 03/05/2024 gabapentin (NEURONTIN) 100 mg capsule Take 1 Capsule by mouth daily. 1 at hs 03/05/2024 03/11/2024 documented as of this encounter Care Teams Hygiene Coordinator Relationship Specialty Start Date End Date Michelle Shannon MD [address] [place] [phone] PCP - General 09/08/11 documented as of this encounter
--- OUTSIDE RECORDS SUMMARY | 2024-04-28 15:50 | XMS_ITS | Encounter Summary ---
Author Organization [facility] Address [address] [place] [address] Care Team Providers Care Industrial Services Worker Name Role Phone Michelle Shannon MD Primary Care Provider + Reason for Visit * Reason Onset Date Comments Medications Refill 10/19/2023 Encounter Details Date Type Department Care Team (Late st Contact Info) Description 10/19/2023 Refill [facility] [address] [facility] [place] [address] [place], [place] [phone] Michelle Shannon MD [address] [place] [phone] Medications Refill Social History Tobacco [...] place to sleep or slept in a long-term (including now)? No 04/29/2023 Interpersonal Safety Answer [...] Dispensed Refills Start Date End Da te mupirocin (BACTROBAN) 2 % ointment Apply topically to affected area 2 times daily. For 5 days 22 g 3 10/19/2023 documented in this encounter Miscellaneous Notes * Telephone Encounter - Yvette Morales - 10/19/2023 0936 EST Pt requests refill, was denied by Divya Coombs with reason needs appointment. Please fill if appropriate or advise YVETTE MORALES MA documented in this encounter Plan of Treatment Upcoming Encounters Date Type Department Care Team (Late st Contact Info) Description 06/08/2024 13:30 EDT Office Visit [facility] [address] [facility] [address] [place], [place] [phone] Michelle Shannon MD [address] [place] [phone] documented as of this encounter Visit Diagnoses Not on filedocumented in this encounter Discontinued Medications Medication Sig Discontinue Reason Start Date End Da te mupirocin (BACTROBAN) 2 % ointment Apply topically to affected area 2 times daily. For 5 days Reorder 11/19/2020 10/19/2023 documented as of this encounter Care Teams Industrial Services Worker Relationship Specialty Start Date End Date Michelle Shannon MD [address] [place] [phone] PCP - General 09/08/11 documented as of this encounter
--- OUTSIDE RECORDS SUMMARY | 2024-04-28 15:50 | XMS_ITS | Encounter Summary ---
Author Organization [facility] Address [address] [place] [address] Care Team Providers Care Membership Manager Name Role Phone Michelle Shannon MD Primary Care Provider + Reason for Visit * Reason Onset Date Comments Medications Refill 10/16/2023 Encounter Details Date Type Department Care Team (Late st Contact Info) Description 10/16/2023 Refill [facility] Dermatology [address] [phone] Divya Coombs MD [address] [place] [address], [address] [place] [address] Medications Refill Social History Tobacco [...] encounter Miscellaneous Notes * Telephone Encounter - Ilsa Leiva RN - 10/17/2023 0819 EST Left a message for patient to make her aware that we will not be able to refill this prescription per office refill policy. She may reach out to her PCP for refills or make an new appointment ILSA LEIVA RN 10/17/2023 8:22 documented in this encounter Plan of Treatment Upcoming Encounters Date Type Department Care Team (Late st Contact Info) Description 06/08/2024 13:30 EDT Office Visit [facility] [address] [facility] [address] [place] [address] Michelle Shannon MD [address] [place] [phone] documented as of this encounter Visit Diagnoses Not on filedocumented in this encounter Care Teams Membership Manager Relationship Specialty Start Date End Date Michelle Shannon MD [address] [place] [phone] PCP - General 09/08/11 documented as of this encounter
--- OUTSIDE RECORDS SUMMARY | 2024-04-28 15:50 | XMS_ITS | Encounter Summary ---
Author Organization [facility] Address [address] [place] [address] Care Team Providers Care Audiology Assistant Name Role Phone Michelle Shannon MD Primary Care Provider + Reason for Visit * Reason Onset Date Comments Medications Refill 08/17/2023 Encounter Details Date Type Department Care Team (Late st Contact Info) Description 08/17/2023 Refill [facility] [address] [facility] [place] [address] [place], [place] [phone] Michelle Shannon MD [address] [place] [phone] Medications Refill Social History Tobacco [...] daily. Daily Max: 2 mg 7 Tablet 08/17/2023 10/16/2023 gabapentin (NEURONTIN) 300 mg capsule Take 1 Capsule by mouth at bedtime. 90 Capsule 1 08/17/2023 09/06/2023 documented in this encounter Miscellaneous Notes * Telephone Encounter - Dayna Guzman - 08/17/2023 1529 EST Refill documented in this encounter Plan of Treatment Upcoming Encounters Date Type Department Care Team (Late st Contact Info) Description 06/08/2024 13:30 EDT Office Visit [facility], [address] [place] [phone] Michelle Shannon MD [address] [place] [phone] documented as of this encounter Visit Diagnoses Not on filedocumented in this encounter Discontinued Medications Medication Sig Discontinue Reason Start Date End Da te gabapentin (NEURONTIN) 300 mg capsule Take 1 Capsule by mouth at bedtime. Reorder 01/24/2023 08/17/2023 LORazepam (ATIVAN) 1 mg tablet Take 1 Tablet by mouth 2 times daily. Daily Max: 2 mg Reorder 07/06/2023 08/17/2023 documented as of this encounter Care Teams Audiology Assistant Relationship Specialty Start Date End Date Michelle Shannon MD [address] [place] [address] [phone] PCP - General 09/08/11 documented as of this encounter
--- OUTSIDE RECORDS SUMMARY | 2024-04-28 15:50 | XMS_ITS | Encounter Summary ---
Author Organization [facility] Address [address] [place] [address] Care Team Providers Care Sheet Mill Supervisor Name Role Phone Michelle Shannon MD Primary Care Provider + Reason for Referral * Sleep Study (Routine/Next Available) - Authorization Not Required Specialty Diagnoses / Procedures [facility]erred To Contact [facility] Diagnoses Excessive daytime sleepiness Procedures DIAGNOSTIC POLYSOMNOGRAM [place] POLYSOM 6/>YRS SLEEP 4/> ADDL JOSE LUIS Jasmeet Arredondo MD [address] [place] [address]. [address] [place] [address] [facility] [address] [place] [id number] Referral ID Status Reason Start Date Expiration Date Visits Requested Visits Authorized [id number] Authorization Not Required Specialty Services Required 4 1 1 Reason for Visit * Reason Comments Follow-up Encounter Details Date Type Department Care Team (Late st Contact Info) Description 12/21/2023 14:00 EDT Office Visit [facility] Sleep [facility] - [address] [phone] Jasmeet Sheets MD [address] [place] [address]. 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 No 04/29/2023 Interpersonal Safety Answer [...] Sign Reading Time Taken Comments Blood Pressure 124/74 12/21/2023 1356 EDT Pulse 89 12/21/2023 1356 EDT Temperature - - Respiratory Rate 16 12/21/2023 1356 EDT Oxygen Saturation 99% 12/21/2023 1356 EDT Inhaled Oxygen Concentration - - Weight 88.5 kg (195 lb 3.2 oz) 12/21/2023 1356 E DT Height - - Body Mass Index 33.49 12/07/2023 1129 EDT documented in this encounter Progress Notes * Jasmeet Sheets MD - 12/21/2023 1400 EDT [facility] Sleep [facility] - Follow-up Evaluation 21 DEC 2023 Primary Care M.D.: Michelle Shannon MD Chief Complaint: Chief Complaint Patient presents with Follow-up HPI: Jane is a 48 y.o. woman who last met at the Sleep Clinic on 2023 for evaluation and treatment of narcolepsy without cataplexy and REM-sleep behavior disorder. At our last visit we lowered her amphetamine and added methylphenidate 30 mg in the afternoon. Tolerating these medications well. She is a former patient of Dr. Prince Turner here at the Sleep Clinic and initially seen on 09 SEP 2008 and the diagnosis of the above problems made at that time and treatment initiated. Troubles falling asleep at night and a hard time staying asleep continue. Sleep pattern: In bed 20:30, rise time 07:30, lays in bed and watches TV, journals, etc until 22:00. Reports taking a nap on occasion though none in past two weeks. Jane has been taking Adderall, Clonazepam and Melatonin for sleep related symptoms since early on in her treatment, though previously at lower doses. 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 No episodes reported today. She notes sleeping at home or sleeping at herboyfriend's house. Weight change: She has gained 65 lb since her first PSG in OCT 2008 and reports losing 5 lb since our last visit. [place] Sleepiness Scale Responses: Sitting and Reading: high chance of dozing Watching TV: moderate chance of dozing Sitting, inactive in a public place (theater or meeting): moderate chance of dozing As a passenger in a car for an hour without a break: high chance of dozing Lying down to rest in the afternoon when circumstances permit: high chance of dozing Sitting and talking to someone: slight chance of dozing Sitting quietly after a lunch without alcohol: slight chance of dozing In a car, while stopped for a few minutes in traffic : slight chance of dozing Total: 16 No Known Allergies Current Outpatient Medications Medication Sig albuterol 90 mcg/actuation inhaler Inhale 1-2 Puffs as directed every 6 hours as needed (shortness of breath). Or 15-30 minutes prior to exercise ARIPiprazole (ABILIFY) 5 mg tablet Take 1 Tablet by mouth daily. As directed (Patient taking differently: Take 0.5 Tablets by mouth daily. As directed) mcuoaxs-ohpagjqfxzxce-eaconjxp (EXCEDRIN MIGRAINE) 250-250-65 mg per tablet Take 1 Tablet by mouth every 6 hours as needed. betamethasone dipropionate 0.05 % lotion Apply topically 2 times daily. Twice daily as needed for itch. Do not let it drip onto the face cholecalciferol, Vitamin D3, (VITAMIN D3) 125 mcg (5,000 unit) tablet Take 1 Tablet by mouth daily. clonazePAM (KLONOPIN) 0.5 mg tablet Take 1 and 1/2 tab nightly at bedtime dextroamphetamine-amphetamine (ADDERALL XR) 30 mg XR capsule Take 1 Capsule by mouth daily. Daily Max: 30 mg escitalopram oxalate (LEXAPRO) 10 mg tablet Take 2 Tablets by mouth daily. estradiol (ESTRING) 2 mg (7.5 mcg /24 hour) vaginal ring Place 1 Ring vaginally Once for 1 dose. follow package directions fluticasone propionate (FLONASE) 50 mcg/actuation nasal spray SHAKE LIQUID AND USE 2 SPRAYS IN EACHNOSTRIL DAILY gabapentin (NEURONTIN) 100 mg capsule Take 1 Capsule by mouth daily. 2 po at bedtime for 2 weeks, then reduce to 1 po at hs. ibuprofen (MOTRIN) 800 mg tablet Take 1 Tablet by mouth every 8 hours as needed for Pain. loratadine (CLARITIN) 10 mg tablet Take 1 Tablet by mouth daily. LORazepam (ATIVAN) 1 mg tablet Take 1 Tablet by mouth 2 times daily. Daily Max: 2 mg (Patient taking differently: Take 1 Tablet by mouth 2 times daily as needed.) melatonin 10 mg capsule Take 10 mg by mouth at bedtime. methylphenidate HCl (RITALIN;METHYLIN) 10 mg tablet 2 tab in AM and 1 tab at noon metroNIDAZOLE (METROGEL) 0.75 % gel Apply topically 2 times daily. mupirocin (BACTROBAN) 2 % ointment Apply topically to affected area 2 times daily. For 5 days omeprazole (PRILOSEC) 20 mg capsule TAKE 1 CAPSULE BY MOUTH TWICE DAILY (Patient taking differently: daily. TAKE 1 CAPSULE BY MOUTH TWICE DAILY) topiramate (TOPAMAX) 50 mg tablet TAKE 1 AND 1/2 TABLETS BY MOUTH TWICE DAILY Medical History Migraine and reports being on Topiramate back in 2009. Her last migraine was 4+ years ago. Torn biceps reported in her right arm and takes Gabapentin Depression w anxiety and she reports having bipolar - Takes Citalopram, aripiprazole and prn Lorazepam and sees a counselor once pr week Stroke affecting my right hemisphere... I drag my left foot a little, prior to 2009, a silent stroke Exercise induced asthma and chronic rhinitis Past Surgical History: Procedure Laterality Date BREAST BIOPSY clip in left breast CERVIX LESION DESTRUCTION TONSILLECTOMY 2019 Dr. Dumont TUBAL LIGATION 06/2020 TYMPANOSTOMY TUBE PLACEMENT WISDOM TOOTH EXTRACTION Family History: No new update today. No other family members with sleep-related illness. No children. Has 1 bros w liver cirrhosis and pancreatitis and is an ETOHic. Mom has Sjogren disorder, melanoma resected. Maternal aunt w breast ca Social History: Never . Lives with Mom since 2014 and brother lives there as well - a duplexhome. No TOB. Rare ETOH - about 2 drinks per month. No work, and on SDI. Last worked in 2009. 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 Acne. Said to have bone thinning and bone densitometry reportedly ordered. Physical Exam: Vitals: 12/21/23 1356 BP: 124/74 BP Cuff Location: Left arm BP Patient Position: Sitting BP Cuff Sizes: Adult, large Pulse: 89 Resp: 16 SpO2: 99% Weight: 88.5 kg (195 lb 3.2 oz) Pulse is regular. Attentive, broad affect and good eye contact. Organizes medical history well and no speech hesitancy or dysphasic error in spontaneous speech. Pupils 3.5 mm equal round and reactive. No ptosis. EOM intact. No facial asymmetry at rest or with forced eye closure or smile. Prominent facial acne. Good dentition. She has a prominent overbite. FTP 3b. 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 Jane has a complicated set of medical problems. REM-sleep behavior disorder - I am not sure this problem is actually present. There are other explanations possible. Insomnia Depression and anxiety Plan: Reluctant to increase stimulant medications.Will continue at present dose. Need to exclude development of UYMIKO> Pt endorses snoring today. Have ordered PSG. I think getting the dose of Melatonin down towards 5 mg at some point is advisable. We review some sleep hygiene basics (she had worked with Sydni Charles, psychology, previously and surprised by the long time in bed w low sleep efficiency and long time in bed w lights on). I will call Jane after PSG data available. I spent a total of 35 minutes on the date of this encounter meeting with the patient and reviewing documentation/coordinating care as described in the above note. Jasmeet Sheets MD 12/21/2023 14:06 documented in this encounter Plan of Treatment Upcoming Encounters Date Type Department Care Team (Late st Contact Info) Description 06/08/2024 13:30 EDT Office Visit [facility] [address] [place], [place] [phone] Michelle Shannon MD [address] [place] [address] Scheduled Orders Name Type Priority Associated Diagnoses Order Schedule DIAGNOSTIC POLYSOMNOGRAM Sleep Center Routine/Next Available Excessive daytime sleepiness Expected: 01/21/2024 (Approximate), Expires: 12/20/2024 documented as of this encounter Visit Diagnoses Diagnosis Narcolepsy without cataplexy- Primary Excessive daytime sleepiness documented in this encounter Care Teams Sheet Mill Supervisor Relationship Specialty Start Date End Date Michelle Shannon MD [address] [place] [phone] PCP - General 09/08/11 documented as of this encounter
--- OUTSIDE RECORDS SUMMARY | 2024-04-28 15:50 | XMS_ITS | Encounter Summary ---
Author Organization [facility] Address [address] [place] [address] Care Team Providers Care Unified Communications Architect Name Role Phone Michelle Shannon MD Primary Care Provider + Reason for Visit * Reason Comments Follow-up Telemedicine Video Visit Encounter Details Date Type Department Care Team (Late st Contact Info) Description 03/28/2024 11:00 EDT Telemedicine [facility] - [address] [phone] Jasmeet Sheets MD [address] [facility]. 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 The location of the patient : Home (where patient lives) The location of the provider: Home office The following people and their roles were present for today's visit: Appointment Provider: Jasmeet Sheets MD Primary Care M.D.: Michelle Shannon MD Chief Complaint: Chief Complaint Patient presents with Follow-up Telemedicine Video Visit HPI: Jane is a 48 y.o. woman who last met at the Sleep Clinic on 21 DEC 2023 for evaluation and treatment of narcolepsy without cataplexy and REM-sleep behavior disorder initially diagnosed at our center back in AUG 2008. Since our last visit we obtained a PSG due to increasing EDS and symptoms suggestive of YUMIKO. No significant YUMIKO present. There has been no interval change in methylphenidate and Adderall since our last visit. She has notreduced her Melatonin. Reports having racing thoughts in the evening though no chest pains or palpitations. Troubles falling asleep at night and a hard time staying asleep continue. Today she relays that shelives w her Mom in a one bedroom apartment and that they share the room in a bunkbed. Mom likes theTV on and this contributes to Jane's sleep c/o. Jane is still in bed about 1.5 hr prior to trying to sleep around 22:00. 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 No episodes reported today. No Known Allergies Current Outpatient Medications Medication Sig albuterol 90 mcg/actuation inhaler Inhale 1-2 Puffs as directed every 6 hours as needed (shortness of breath). Or 15-30 minutes prior to exercise ARIPiprazole (ABILIFY) 5 mg tablet Take 1 Tablet by mouth daily. As directed (Patient taking differently: Take 0.5 Tablets by mouth daily. As directed) tlexxbq-lkcdduwejqgfc-mbsgbpfi (EXCEDRIN MIGRAINE) 250-250-65 mg per tablet Take [...] 2009. 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 Chronic rhinitis. Acne. Said to have bone thinning and bone densitometry reportedly ordered. Physical Exam: Wt 200 lb Attentive, broad affect and good eye contact. Organizes medical history well and no speech hesitancy or dysphasic error in spontaneous speech. Detailed exam not performed today Welch Investigations: PSG 06 MAR 2024 wt 200 lb. Usually in bed at 22:00 and during study HS midnight. ANGEL 6 min. Did notget into REM sleep for over 6 hours. AHI 2.8. Ramiro SaO2 97%. Study performed to detect RSBD. No RSBD events and EMG seemed normal during one REM cycle recorded. 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 Jane has a complicated set of medical problems. REM-sleep behavior disorder - I am not sure this problem is actually present. There are other explanations possible. Insomnia Depression and anxiety Plan: Reluctant to increase stimulant medications.Will continue at present dose. We spent most of our time today discussing sleep hygiene approaches. Of note, Jane had worked with Sydni Charles previously. Socio-economic hardships are contributing to Jane's difficulty with sleep. I again urge Jane to lower her dose of Melatonin down to 5 mg. Will see Jane back in 6 mos. Jasmeet Sheets MD 03/28/2024 11:00 documented in this encounter Plan of Treatment Upcoming Encounters Date Type Department Care Team (Late st Contact Info) Description 06/08/2024 13:30 EDT Office Visit [facility] [address] [place], [place] [phone] Michelle Shannon MD [address] [place] [phone] documented as of this encounter Visit Diagnoses Diagnosis Narcolepsy without cataplexy- Primary documented in this encounter Care Teams Unified Communications Architect Relationship Specialty Start Date End Date Michelle Shannon MD [address] [place] [phone] PCP - General 09/08/11 documented as of this encounter
--- OUTSIDE RECORDS SUMMARY | 2024-04-28 15:50 | XMS_ITS | Encounter Summary ---
Author Organization [facility] Address [address] [place] [address] Care Team Providers Care Supervisor Veneer Name Role Phone Michelle Shannon MD Primary Care Provider + Reason for Visit * Reason Onset Date Comments Medications Refill 02/06/2024 Encounter Details Date Type Department Care Team (Late st Contact Info) Description 02/06/2024 Refill Corwin Elliott MD [address] [phone] Janna Tamayo, JOSEFINA Medications Refill Social History [...] Dispensed Refills Start Date End Da te omeprazole (PRILOSEC) 20 mg capsule TAKE 1 CAPSULE BY MOUTH TWICE DAILY 90 Capsule 3 02/06/2024 documented in this encounter Plan of Treatment Upcoming Encounters Date Type Department Care Team (Late st Contact Info) Description 06/08/2024 13:30 EDT Office Visit [facility] [address] [facility] [address] [place] [address] Michelle Shannon MD [address] [place] [phone] documented as of this encounter Visit Diagnoses Not on filedocumented in this encounter Discontinued Medications Medication Sig Discontinue Reason Start Date End Da te omeprazole (PRILOSEC) 20 mg capsule TAKE 1 CAPSULE BY MOUTH TWICE DAILY Reorder 04/25/2023 02/06/2024 documented as of this encounter Care Teams Supervisor Veneer Relationship Specialty Start Date End Date Michelle Shannon MD [address] [place] [phone] PCP - General 09/08/11 documented as of this encounter
--- OUTSIDE RECORDS SUMMARY | 2024-04-28 15:50 | XMS_ITS | Encounter Summary ---
Author Organization [facility] Address [address] [place] [address] Care Team Providers Care Poultry Barn Manager Name Role Phone Michelle Shannon MD Primary Care Provider + Reason for Referral * Consult (Routine/Next Available) - Authorization Not Required Specialty Diagnoses / Procedures Referred By Contac t Referred To Contact Orthopedic Surgery Diagnoses Supraspinatus tendinitis, left Michelle Shannon MD [address] [place] [phone] Ruslan García MD [address] [place] [phone] Referral ID Status Reason Start Date Expiration Date Visits Requested Visits Authorized [id number] Authorization Not Required Specialty Services Required 09/26/2023 1 1 * PT/OT/ST (Routine/Next Available) - New Request Specialty Diagnoses / Procedures Referred By Contac t Referred To Contact Diagnoses Supraspinatus tendinitis, left Michelle Shannon MD [address] [place] [phone] Referral ID Status Reason Start Date Expiration Date Visits Requested Visits Authorized [id number] New Request Specialty Services Required 3 1 1 Question Answer Practice Site (External Referral Only): [facility] Comments Treat as indiacate * Radiology Services (Routine/Next Available) - Authorization Not Required Specialty Diagnoses / Procedures Referred By Contac t Referred To Contact Diagnoses Closed nondisplaced fracture of fifth metatarsal bone of right foot with delayed healing, subsequent encounter Procedures XR FOOT RIGHT 1-2 VIEWS Michelle Shannon MD [address] [place] [phone] [facility] Referral ID Status Reason Start Date Expiration Date Visits Requested Visits Authorized [id number] Authorization Not Required 3 1 1 Reason for Visit * Reason Comments Follow-up Foot Injury Right Shoulder Pain Left Encounter Details Date Type Department Care Team (Late st Contact Info) Description 09/06/2023 9:30 EST Office Visit [facility] [address] [facility] [address] [place], [place] [phone] Michelle Shannon MD [address] [place] [phone] Closed nondisplaced fracture of fifth metatarsal bone of right foot with delayed healing, subsequent encounter (Primary Dx); Supraspinatus tendinitis, left; MDD (major depressive disorder), recurrent episode, moderate ([facility]); REM sleep behavior disorder; BMI 34.0-34.9,adult Social History Tobacco Use Types Packs/Day Years [...] money to buy more. Often true 04/29/20 Within the past 12 months, t he [...] Sign Reading Time Taken Comments Blood Pressure 118/78 09/06/2023 0933 EST Pulse 89 09/06/2023 0933 EST Temperature 36.8 ??C (98.3 ??F) 09/06/2023 0933 EST Respiratory Rate - - Oxygen Saturation 98% 09/06/2023 0933 EST Inhaled Oxygen Concentration - - Weight 90.2 kg (198 lb 12.8 oz) 09/06/2023 0933 EST Height - - Body Mass Index 34.11 05/10/2023 1907 EDT documented in this encounter Ordered Prescriptions Prescription Sig Dispensed Refills Start Date End Da te loratadine (CLARITIN) 10 mg tablet Take 1 Tablet by mouth daily. 100 Tablet 1 09/07/2023 clonazePAM (KLONOPIN) 0.5 mg tablet Take 1 and 1/2 tab nightly at bedtime 45 Tablet 2 09/07/2023 12/29/2023 gabapentin (NEURONTIN) 100 mg capsule Take 1 Capsule by mouth daily. 2 po at bedtime for 2 weeks, then reduce to 1 po at hs. 60 Capsule 1 09/06/2023 03/05/2024 documented in this encounter Progress Notes * Michelle Shannon MD - 09/06/2023 0923 EST Jane Blair 48 y.o. 09/26/2023 Subjective: Chief Complaint Patient presents with Follow-up Foot Injury Right Shoulder Pain Left HPI Jane is following up regarding depression, anxiety, excoriation disorder, narcolepsy, and REM sleepdisorder. Dr Sheets has also been making medication adjustments to treat her sleep disorder. Currently, he is having her keep a sleep diary. And plans to order a sleep study to rule out sleep apnea as a contributor to her symptoms. Jane admits that she does snore at night. However, she denies significant drowsiness during the day. Mostly, she has a hard milan falling asleep at night, and then has trouble getting up in the AM . On average, she is getting about 8 hours of sleep. In the past, hypersomnolence has been a barrier to employment. Her current medications include Adderal XR30 and 2 ritalin in the AM with one ritalin tablet in the afternoon. She also continues to take Abilify, and clonazepam daily.. Her new psychiatrist recently transition Cymbalta to Lexapro which she thinks may be working better. She also reports some recent left shoulder soreness, however she cannot recall any injury. Symptomsare similar to previous right shoulder impingement pain in the past, which responded to a subacromial injection. She occasionally takes Tylenol or ibuprofen when the symptoms are bothering her, but is not taking this on a daily basis. She also continues to take gabapentin on a regular basis relatedto prior radicular pain and has been nervous about weaning it. She continues to have pain in the right foot following metatarsal fractures in April when she twisted her ankle coming downstairs. She tells me the foot had been feeling better for a while, but overthe last couple weeks, she is having recurrent pain located in the right lateral foot. She has not had any further injuries.. She is still trying to get approved for Medicaid and reports that she has a spend down in order to be eligible and also needs to fill out some forms. She has a case advocate Rosemary TRIANA human services, counselor Gloria, and job counselor Jonas (through [employer]). She is also participating in aDBT group which meets in person weekly. 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 At her last visit, we have readdressed options for weight loss. Her insurance would not cover semaglutide, and she is already on Topamax (possibly with variable adherence given refill dates). At her last visit, we had discussed reducing Abilify to 2.5 mg a day since this may be contributing to weight gain, but she never made the change. With the recent switch to Lexapro, she feels as though her food cravings are less. With the reduction in Abilify and switch to Lexapro, she feels as though her cravings for sugar are less. Her chronic migraines continue to be well-controlled with Topamax 75 mg twice a day Active Problem List Patient Active Problem List Diagnosis Narcolepsy without cataplexy REM sleep behavior disorder Migraine with aura Episodic mood disorder (HCC-CMS) MDD (major depressive disorder), recurrent episode, moderate (HCC-CMS) GERD without esophagitis Vitamin D deficiency Allergic rhinitis Anxiety Encounter for sterilization [facility] Past Medical History: Diagnosis Date Allergic rhinitis [...] mcg/actuation inhaler ARIPiprazole (ABILIFY) 5 mg tablet qrxiwbv-ioqjsvgtbuewz-fqcuwrii (EXCEDRIN MIGRAINE) 250-250-65 mg per tablet betamethasone dipropionate 0.05 % lotion cholecalciferol, Vitamin D3, (VITAMIN D3) 125 mcg (5,000 unit) tablet clonazePAM (KLONOPIN) 0.5 mg tablet dextroamphetamine-amphetamine (ADDERALL XR) 30 mg XR capsule escitalopram oxalate (LEXAPRO) 10 mg tablet fluticasone propionate (FLONASE) 50 mcg/actuation nasal spray gabapentin (NEURONTIN) 100 mg capsule ibuprofen (MOTRIN) 800 mg tablet loratadine (CLARITIN) 10 mg tablet LORazepam (ATIVAN) 1 mg tablet melatonin 10 mg capsule methylphenidate HCl (RITALIN;METHYLIN) 10 mg tablet metroNIDAZOLE (METROGEL) 0.75 % gel mupirocin (BACTROBAN) 2 % ointment omeprazole (PRILOSEC) 20 mg capsule topiramate (TOPAMAX) 50 mg tablet tretinoin (RETIN-A) 0.025 % cream No current facility-administered medications for this visit. Review of Systems Constitutional: Negative for diaphoresis and weight loss. Cardiovascular: Negative for palpitations and leg swelling. Musculoskeletal: Positive for joint pain. Neurological: Positive for tingling and sensory change. Psychiatric/Behavioral: Positive for depression and suicidal ideas. Negative for hallucinations. The patient is nervous/anxious and has insomnia. Forgetful OBJECTIVE: Vitals: BP 118/78 Pulse 89 Temp 36.8 ??C (98.3 ??F) (Temporal) Wt 90.2 kg (198 lb 12.8 oz) LMP 07/08/2020 (Exact Date) Comment: ablation SpO2 98% BMI 34.11 kg/m?? Physical Exam Constitutional: She appears well-developed and overweight. No physical distress. Skin: Multiple excoriations on the face, large open areas over the chin Neuro: Mildly tremulous Musculoskeletal: Left shoulder pain with abduction and internal rotation. Slightly diminished forward flexion. Right lateral foot tenderness over the fifth metatarsal with a palpable lump Psychiatric: Affect is anxious but not tearful. Her speech is normal. Behavior is cooperative. ASSESSMENT and PLAN Jane was seen today for follow-up, foot injury and shoulder pain. Diagnoses and all orders for this visit: Closed nondisplaced fracture of fifth metatarsal bone of right foot with delayed healing, subsequent encounter - XR FOOT RIGHT 1-2 VIEWS; Future Supraspinatus tendinitis, left - AMB CONS/FOLLOW UP PHYSICAL THERAPY - OUTSIDE OF NETWORK; Future - AMB CONS/FOLLOW UP ORTHOPEDICS - [facility]; Future MDD (major depressive disorder), recurrent episode, moderate ([facility]) REM sleep behavior disorder BMI 34.0-34.9,adult Other orders - gabapentin (NEURONTIN) 100 mg capsule; Take 1 Capsule by mouth daily. 2 po at bedtime for 2 weeks, then reduce to 1 po at hs. - clonazePAM (KLONOPIN) 0.5 mg tablet; Take 1 and 1/2 tab nightly at bedtime - loratadine (CLARITIN) 10 mg tablet; Take 1 Tablet by mouth daily. . Major depressive disorder, excoriation disorder, narcolepsy and REM sleep disorder. Recently switched Cymbalta to Lexapro and feels this is helping Consider discontinuing melatonin now that it is no longer covered by insurance and affect is questionable Continue Adderall XR 30mg in the a.m. with Ritalin, 2 tablets. Medications are currently being managed by Dr. Sheets. She will be transitioning to a new psychiatrist in the next month or 2 Dr. Sheets has ordered a sleep study Once again discussed weaning off Abilify, and will start by reducing to 2.5 mg. Monitor increased anxiety Clonazepam 0.5 mg at bedtime for sleep disorder (per Jane's report, however the prescription is written for a 0.75 at bedtime.) Continue Lorazepam 1 mg p.o. 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 Subsequent orthopedic evaluation diagnosed right biceps tendinitis and subacromial impingement. Symptoms are currently manageable Taking Gabapentin 300mg at at bedtime but wll wean as outlined below Migraines- Continue topamax 75mg bid. Monitor metabolic acidosis Off Maxalt due to taking SSRI Continue ibuprofen 800mg as needed She also uses Excedrin prn BMP yearly due in March Elevated BMI 34. Difficulty exercising due to foot pain and recent fractures. Medications such as duloxetine, gabapentin and Abilify may also contribute to difficulty with weight loss, and also newlymenopausal. Can't take phentermine while on adderall and insurance refused covering Wegov[place]. She does not have binge eating behaviors. Already taking Topamax, but dose was increased from daily to twice daily at her previous visit Continue working on eating a healthy diet low in carbohydrates Continue Topamax 75 mg twice a day to assist with weight loss Increase exercise once her foot is healed Plans to add yoga to her exercise routine look into scholarships Never weaned Abilify. Encouraged her to reduce 5 mg to 2.5 mg and monitor for increasing anxiety We also discussed starting to wean gabapentin, 2 po at bedtime for 2 weeks, then reduce to 1 po at hs. Switching to Lyrica or Trileptal is a contingency and might also help with weight loss Goal weight is 160 lb Multiple metatarsal fractures right foot (Xray at [facility]). Now with recurrent right foot pain and no specific injury Repeat x-ray to rule out stress fracture Encouraged wearing a stiff bottom shoe. Left shoudler pain, with evidence of impingement. History of prior right shoulder impingement and prior subacromial injection Refer to Dr. García for possible injection Referred to PT Skin wounds due to excoriation disorder- Has metronidazole and betamethasone cream to use with flares Michelle Shannon MD documented in this encounter Plan of Treatment Upcoming Encounters Date Type Department Care Team (Late st Contact Info) Description 06/08/2024 13:30 EDT Office Visit [facility] [address] [facility] [address] [place] [address] Michelle Shannon MD [address] [place] [phone] Scheduled Orders Name Type Priority Associated Diagnoses Orde r Schedule XR FOOT RIGHT 1-2 VIEWS Imaging Routine Closed nondisplaced fracture of fifth metatarsal bone of right foot with delayed healing, subsequent encounter Expected: 09/13/2023 (Approximate), Expires: 03/07/2025 Scheduled Referrals Name Type Priority Associated Diagnoses Order Schedule AMB CONS/FOLLOW UP PHYSICAL THERAPY - OUTSIDE OF NETWORK Outpatient Referral Routine/Next Available Supraspinatus tendinitis, left Expected: 09/13/2023 (Approximate), Expires: 09/06/2024 AMB CONS/FOLLOW UP ORTHOPEDICS - [facility] Outpatient Referral Routine/Next Available Supraspinatus tendinitis, left Expected: 10/03/2023 (Approximate), Expires: 09/26/2024 documented as of this encounter Visit Diagnoses Diagnosis Closed nondisplaced fracture of fifth metatarsal bone of right foot with delayed healing, subsequent encounter- Primary Supraspinatus tendinitis, left MDD (major depressive disorder), recurrent episode, moderate ([facility]) Major depressive disorder, recurrent episode, moderate REM sleep behavior disorder BMI 34.0-34.9,adult Body Mass Index 34.0-34.9, adult documented in this encounter Discontinued Medications Medication Sig Discontinue Reason Start Date End Da te citalopram (CELEXA) 40 mg tablet Take 1 Tablet by mouth daily. Therapy completed 01/24/2023 09/06/2023 gabapentin (NEURONTIN) 300 mg capsule Take 1 Capsule by mouth at bedtime. 08/17/2023 09/06/2023 loratadine (CLARITIN) 10 mg tablet Take 1 Tablet by mouth daily. Reorder 01/24/2023 09/06/2023 clonazePAM (KLONOPIN) 0.5 mg tablet Take 1 and 1/2 tab nightly at bedtime Reorder 04/19/2023 09/06/2023 documented as of this encounter Historical Medications * This list may reflect changes made after this encounter. Medication Sig Dispensed Refills Start Date End Date escitalopram oxalate (LEXAPRO) 10 mg tablet Take 2 Tablets by mouth daily. 04/06/2024 added in this encounter Care Teams Poultry Barn Manager Relationship Specialty Start Date End Date Michelle Shannon MD [address] [place] [phone] PCP - General 09/08/11 documented as of this encounter
--- OUTSIDE RECORDS SUMMARY | 2024-04-28 15:50 | XMS_ITS | Encounter Summary ---
Author Organization [facility] Address [address] [place] [address] Care Team Providers Care Glaze Sprayer Name Role Phone Michelle Shannon MD Primary Care Provider + Reason for Visit * Reason Comments Coordination Of Care Encounter Details Date Type Department Care Team (Late st Contact Info) Description 12/28/2023 Community Health Team [facility] Community Health [address], [address] [place] [address] [facility], Health Assistance Program [address] [place] [address] Social History Tobacco Use Types Packs/Day Years [...] Progress Notes * Mony Odom - 12/28/2023 1528 EDT ..Community Health Team Multicraft Operator Date: 12/28/23 Referred by: PCP PCP: Michelle Shannon Encounter type: Telephone Call Reason for Referral: food and fuel assistance. Housing. Notes: Multicraft Operator (RC) outreached to Jane via telephone call. Jane stated she has a past due bill with her [employer] and is in need of financial assistance. Jane would also like to explore possible housing assistance. Jane currently lives with her mother and brother in a two bedroom apartment. They would like to find a three bedroom option within their budget. Jane stated [facility] RC inquired if she had applied for benefits through [employer] to assist with food and fuel needs. Jane stated she has and was ineligible due to being over income. (This was completed recently.) Plan / Action Items: RC will explore organizations providing financial assistance for utilities in [place] [facility], she resides in [facility]. RC will email Jane with contact information for [facility] [email or web address] as they can potentially provide financial support with her past due oil bill. The email will also include any additional resources RC is able to locate within [facility]. will provide assistance with completing housing applications once eligibility is determined due to income. will outreach to Jane via telephone call once the email has been sent to ensure she receives theinformation. Mony Odom 12/28/23 15:28 documented in this encounter Plan of Treatment Upcoming Encounters Date Type Department Care Team (Late st Contact Info) Description 06/08/2024 13:30 EDT Office Visit [facility] [address] [facility] [address] [place], [place] [phone] Michelle Shannon MD [address] [place] [phone] documented as of this encounter Visit Diagnoses Not on filedocumented in this encounter Care Teams Glaze Sprayer Relationship Specialty Start Date End Date Michelle Shannon MD [address] [place] [phone] PCP - General 09/08/11 documented as of this encounter
--- OUTSIDE RECORDS SUMMARY | 2024-04-28 15:50 | XMS_ITS | Encounter Summary ---
Author Organization [facility] Address [address] [place] [address] Care Team Providers Care Gas Dispatcher Name Role Phone Michelle Shannon MD Primary Care Provider + Reason for Visit * Reason Onset Date Comments Results 03/20/2024 Encounter Details Date Type Department Care Team (Late st Contact Info) Description 03/20/2024 Telephone [facility] Sleep Program - [address] [phone] Jasmeet Sheets MD [address] [facility] [place] [phone] Results Social History Tobacco Use Types Packs/Day [...] place to sleep or slept in a [facility] (including now)? No 04/29/2023 Interpersonal Safety Answer [...] and 1 tab at noon 90 Tablet 03/22/2024 documented in this encounter Miscellaneous Notes * Telephone Encounter - Juliana Díaz RN - 03/26/2024 0847 EDT Message from to the Nurse Pool: Please let the patient know that her PSG is normal.Let's set up a f/u visit with her. Taylor. Routed message to PSS Pool for scheduling. * Telephone Encounter - Juliana Díaz RN - 03/22/2024 0739 EDT Re-sending to . * Telephone Encounter - Juliana Díaz RN - 03/20/2024 1503 EDT Pt calling for her sleep study results and for methylphenidate refill. Pt last seen on 12/21/23 by . The [place] Prescription Monitoring System query has been completed per the following requirement(s): Annual Verification. Pended order(s) to Provider. * Telephone Encounter - Katiuska Arnett - 03/20/2024 1429 EDT Medication Refill Medication(s) Requested: methylphenidate HCl (RITALIN;METHYLIN) 10 mg tablet Pharmacy (reconcile pharmacy list): [id number] Is patient out of medication? Yes Katiuska Arnett 4:41 Jane received notification via [employer] that results of 03/05 were available. She wonders if she should schedule a follow up appointment with Dr. Sheets to review the results. ( 12/21/2023 with follow up as needed.) documented in this encounter Plan of Treatment Upcoming Encounters Date Type Department Care Team (Late st Contact Info) Description 06/08/2024 13:30 EDT Office Visit [facility] [address] [place] [address] Michelle Shannon MD [address] [place] [phone] documented as of this encounter Visit Diagnoses Not on filedocumented in this encounter Discontinued Medications Medication Sig Discontinue Reason Start Date End Da te methylphenidate HCl (RITALIN;METHYLIN) 10 mg tablet 2 tab in AM and 1 tab at noon Reorder 01/27/2024 03/20/2024 documented as of this encounter Care Teams Gas Dispatcher Relationship Specialty Start Date End Date Michelle Shannon MD [address] [place] [phone] PCP - General 09/08/11 documented as of this encounter
--- OUTSIDE RECORDS SUMMARY | 2024-04-28 15:50 | XMS_ITS | Encounter Summary ---
Author Organization [facility] Address [address] [place] [address] Care Team Providers Care Hat Forming Machine Feeder Name Role Phone Michelle Shannon MD Primary Care Provider + Reason for Visit * Reason Onset Date Comments Medications Refill 10/31/2023 Encounter Details Date Type Department Care Team (Late st Contact Info) Description 10/31/2023 Refill [facility] [address] [facility] [address] [place], [place] [phone] Michelle Shannon MD [address] [place] [phone] Medications Refill Social History Tobacco [...] you? Sometimes 04/29/2023 How often does anyone, inclalxe elissa family, insult, scream, curse or threaten to hurt you? Sometimes 04/29/2023 Sex and Gender Information Value Date Recorded Sex Assigned at Not on file Gender Identity Female 11/10/2020 8:41 EST Sexual Orientation Straight 12/07/2023 23 :06 EDT documented as of this encounter Miscellaneous Notes * Telephone Encounter - Yvette Guzmán - 10/31/2023 1058 EST Refill documented in this encounter Plan of Treatment Upcoming Encounters Date Type Department Care Team (Late st Contact Info) Description 06/08/2024 13:30 EDT Office Visit [facility] [address] [place], [place] [phone] Michelle Shannon MD [address] [place] [phone] documented as of this encounter Visit Diagnoses Not on filedocumented in this encounter Care Teams Hat Forming Machine Feeder Relationship Specialty Start Date End Date Michelle Shannon MD [address] [place] [phone] PCP - General 09/08/11 documented as of this encounter
--- OUTSIDE RECORDS SUMMARY | 2024-04-28 15:50 | XMS_ITS | Encounter Summary ---
Author Organization [facility] Address [address] [place] [address] Care Team Providers Care Subway Guard Name Role Phone Michelle Shannon MD Primary Care Provider + Encounter Details Date Type Department Care Team (Late st Contact Info) Description 08/04/2023 Orders Only [facility] [address] [place], [place] [phone] Michelle Shannon MD [address] [place] [phone] Social History Tobacco Use Types [...] Info) Description 06/08/2024 13:30 EDT Office Visit [facility] [address] [place], [place] [phone] Michelle Shannon MD [address] [place] [phone] documented as of this encounter Visit Diagnoses Not on filedocumented in this encounter Care Teams Subway Guard Relationship Specialty Start Date End Date Michelle Shannon MD [address] [place] [phone] PCP - General 09/08/11 documented as of this encounter
--- OUTSIDE RECORDS SUMMARY | 2024-04-28 15:50 | XMS_ITS | Encounter Summary ---
Author Organization [facility] Address [address] [place] [address] Care Team Providers Care Professor Of Philosophy Name Role Phone Michelle Shannon MD Primary Care Provider + Reason for Visit * Reason Comments Diagnostic Polysomnogram * Sleep Study (Routine/Next Available) - Authorization Not Required Specialty Diagnoses / Procedures Referred By Thelma long Referred To Contact Sleep Medicine Diagnoses Excessive daytime sleepiness Procedures DIAGNOSTIC POLYSOMNOGRAM CA POLYSOM 6/>YRS SLEEP 4/> ADDL JOSE LUIS LEE Sheets, Jasmeet Pichardo MD [address] [facility]. Level 5 [place] [address] [facility] [address] [place] [address] Referral ID Status Reason Start Date Expiration Date Visits Requested Visits Authorized [id number] Authorization Not Required Specialty Services Required 4 1 1 Encounter Details Date Type Department Care Team (Late st Contact Info) Description 03/05/2024 21:30 EDT Office Visit [facility] Inn [address] [place] [address] Polysomnogram, Res Inn Snoring (Primary Dx) Social History Tobacco Use Types [...] place to sleep or slept in a detention (including now)? No 04/29/2023 Interpersonal Safety Answer [...] - Inhaled Oxygen Concentration - - Weight 90.6 kg (199 lb 12.8 oz) 03/06/2024 0242 EDT Height 161.9 cm (5' 3.75) 03/06/2024 0242 EDT Body Mass Index 34.57 03/06/2024 0242 EDT documented in this encounter Progress Notes * Elie Briceño MD - 03/05/20242129 EDT Diagnostic Polysomnogram on 03/05/2024 [facility] 1 [place] [address] / fax [phone] In Summary: * Intermittent snoring present but AHI insufficient for sleep apnea diagnosis. AHI 2.8. Average O2 Sat: 97%. Ramiro O2 sat: 88.0%. The patient spent a total of 0.1 minutes of sleep time with O2 saturation < 88%. Study limited by absence of supine REM. REM observed in right lateral position. AHI < 5 in supine and left lateral positions, mild in right lateral position. * The AHI is 0.4 using the 2007 AASM scoring criteria. * The patient slept a total of 339 minutes. Sleep efficiency of 82% with delayed REM latency of 377minutes in the presence of escitalopram. * Periodic Limb Movements (PLMs) are within normal limits. * Other motor: Although there were some REM epochs with excessive transient muscle activity during sleep, these appeared to constitute < 27% of the total REM epochs. Chin EMG displayed normal attenuation during REM. There were no complex behaviors or vocalizations documented during REM sleep. Study was limited by artifact in right arm EMG throughout REM, and only 1 REM cycle. Patient is on an SRI, escitalopram. Impression: Patient underwent PSG with RBD montage. Artifact in right arm EMG throughout REM. There were no complex behaviors or vocalizations documented during REM sleep. Although there were some REM epochs with excessive transient muscle activity during sleep, these appeared to constitute < 27% of the total REM epochs. Chin EMG displayed normal attenuation during REM. Study was limited by only 1 REM cycle which occurred near end of study in lateral position. Patient is on an SRI, escitalopram. Clinical correlation is recommended. Insufficient AHI for sleep apnea diagnosis. AHI < 5 in supine and left lateral positions, mild in right lateral position. Again, study limited by absence of supine REM. Plan: * The patient should follow up with referring provider Dr. Sheets for discussion of results. Elie Briceño MD 03/18/2024 20:04 Portions of this document may contain text elements generated through computerized voice recognition technology. Undetected computer-generated word errors are possible. Please notify the signing provider if clarification or correction is needed. This Sleep Study Report (including details) can be viewed under the Procedures Tab in the EMR ([facility]) as a scanned file attachment. If the Sleep Study Report cannot be accessed, a copy can be obtainedby contacting [facility] at [phone]. documented in this encounter Plan of Treatment Upcoming Encounters Date Type Department Care Team (Late st Contact Info) Description 06/08/2024 13:30 EDT Office Visit [facility] [address] [facility] [address] [place], [place] [phone] Michelle Shannon MD [address] [place] [phone] documented as of this encounter Procedures Procedure Name Priority Date/Time Associated Diagnosis Comments SLEEP STUDY REPORT - SCANNED 03/19/2024 9:29 EDT documented in this encounter Results * SLEEP STUDY REPORT - SCANNED (03/19/2024 9:29 EDT) 03/19/2024 9:29 EDT Scan 2 Industrial Relations Counselor PROCEDURE/MINOR ANTONELLA GICAL ORDERABLES documented in this encounter Visit Diagnoses Diagnosis Snoring- Primary Other dyspnea and respiratory abnormality documented in this encounter Care Teams Professor Of Philosophy Relationship Specialty Start Date End Date Michelle Shannon MD [address] [place] [phone] PCP - General 09/08/11 documented as of this encounter
--- OUTSIDE RECORDS SUMMARY | 2024-04-28 15:51 | XMS_ITS | Encounter Summary ---
Author Organization [facility] Address [address] [place] [address] Care Team Providers Care Visual Display Manager Name Role Phone Michelle Shannon MD Primary Care Provider + Reason for Visit * Reason Onset Date Comments Medication Adherence 05/03/2023 Encounter Details Date Type Department Care Team (Late st Contact Info) Description 05/03/2023 Telephone [facility] - [address] [id number] Jasmeet Sheets MD [address] [facility]. Level [address] [place] [address] Medication Adherence Social History Tobacco Use Types [...] encounter Miscellaneous Notes * Telephone Encounter - Mel Aguilera - 05/03/2023 1648 EDT Left message on machine that Dr. Sheets isn't the prescribing DrEstelita For her adderall. Patient needs tocall her pcp. documented in this encounter Plan of Treatment Upcoming Encounters Date Type Department Care Team (Late st Contact Info) Description 06/08/2024 13:30 EDT Office Visit [facility] 550 [facility] [address] [place] [address] Michelle Shannon MD [address] [place] [phone] documented as of this encounter Visit Diagnoses Not on filedocumented in this encounter Care Teams Visual Display Manager Relationship Specialty Start Date End Date Michelle Shannon MD [address] [place] [phone] PCP - General 09/08/11 documented as of this encounter
--- OUTSIDE RECORDS SUMMARY | 2024-04-28 15:51 | XMS_ITS | Encounter Summary ---
Author Organization [facility] Address [address] [place] [address] Care Team Providers Care Urban Planning Teacher Name Role Phone Michelle Shannon MD Primary Care Provider + Encounter Details Date Type Department Care Team (Late st Contact Info) Description 05/07/2023 Orders Only [facility] [address] [place], [place] [phone] Michelle Shannon MD [address] [place] [phone] Social History Tobacco Use Types [...] daily. Daily Max: 2 mg 7 Tablet 05/07/2023 2023 documented in this encounter Plan of Treatment Upcoming Encounters Date Type Department Care Team (Late st Contact Info) Description 06/08/2024 13:30 EDT Office Visit [facility] [address] [place], [place] [phone] Michelle Shannon MD [address] [place] [phone] documented as of this encounter Visit Diagnoses Not on filedocumented in this encounter Discontinued Medications Medication Sig Discontinue Reason Start Date End Da te LORazepam (ATIVAN) 1 mg tablet Take 1 Tablet by mouth 2 times daily. Daily Max: 2 mg Reorder 04/19/2023 05/07/2023 documented as of this encounter Care Teams Urban Planning Teacher Relationship Specialty Start Date End Date Michelle Shannon MD [address] [place] [phone] PCP - General 09/08/11 documented as of this encounter
--- OUTSIDE RECORDS SUMMARY | 2024-04-28 15:51 | XMS_ITS | Encounter Summary ---
Author Organization [facility] Address [address] [place] [address] Care Team Providers Care Assembler Wire Mesh Gate Name Role Phone Michelle Shannon MD Primary Care Provider + Reason for Visit * Reason Onset Date Comments Medications Refill 03/21/2023 Encounter Details Date Type Department Care Team (Late st Contact Info) Description 03/21/2023 Refill [facility] 550 [facility] [address] [place], [place] [phone] Michelle Shannon MD [address] [place] [phone] Medications Refill Social History Tobacco [...] like food, housing, medical care, and heating? Somewhat hard 12/28/2021 PHQ-2 Answer Date Recorded PHQ-2 SUBTOTAL 6 12/28/2021 Hunger Vital Sign Answer Date Recorded Within the past 12 months, y ou worried that your food would run out before you got the money to buy more. Sometimes true Within the past 12 months, t he food you bought just didn't last and you didn't have money to get more. Sometimes true 12/2021 PRAPARE - Transportation Answer Date Re corded In the past 12 months, has l ack of transportation kept you from medical appointments or from getting medications? Yes 12/2021 In the past 12 months, has l ack of transportation kept you from meetings, work, or from getting things needed for daily living? Yes 12/28/2021 Housing Stability Vital Sign Answer Naldo e Recorded In the last 12 months, was t here a time when you were not able to pay the mortgage or rent on time? No 12/28/2021 Number of Places Lived in the Last Year Not on f ile 12/28/2021 In the last 12 months, was t here a time when you did not have a steady place to sleep or slept in a nursing home (including now)? No 12/28/2021 Interpersonal Safety Answer Date Record ed How often does anyone, inclalex bowers family, hit, punch or physically hurt you? Never 12/28/2021 How often does anyone, inclalex elissa family, insult, scream, curse or threaten to hurt you? Frequently 12/28/2021 Sex and Gender Information Value Date Recorded Sex Assigned at Not on file Gender Identity Female 11/10/2020 8:41 EST Sexual Orientation Straight 12/07/2023 23 :06 EDT documented as of this encounter Ordered Prescriptions Prescription Sig Dispensed Refills Start Date End Da te dextroamphetamine-amphetam ine (ADDERALL) 20 mg tablet 2 tabs in AM and 1 tab at noon 90 Tablet 03/22/2023 04/25/2023 documented in this encounter Plan of Treatment Upcoming Encounters Date Type Department Care Team (Late st Contact Info) Description 06/08/2024 13:30 EDT Office Visit [facility] [address] [place] [address] Michelle Shannon MD [address] [place] [phone] documented as of this encounter Visit Diagnoses Not on filedocumented in this encounter Discontinued Medications Medication Sig Discontinue Reason Start Date End Da te dextroamphetamine-ampheta mine (ADDERALL) 20 mg tablet 2 tabs in AM and 1 tab at noon Reorder 01/25/2023 03/21/2023 documented as of this encounter Care Teams Assembler Wire Mesh Gate Relationship Specialty Start Date End Date Michelle Shannon MD [address] [place] [phone] PCP - General 09/08/11 documented as of this encounter
--- OUTSIDE RECORDS SUMMARY | 2024-04-28 15:51 | XMS_ITS | Encounter Summary ---
Author Organization [facility] Address [address] [place] [address] Care Team Providers Care Keyboard Instrument Tuner Name Role Phone Michelle Shannon MD Primary Care Provider + Reason for Visit * Reason Comments Toe Injury Encounter Details Date Type Department Care Team (Late st Contact Info) Description 05/19/2023 10:00 EDT Telemedicine [facility] 550 [facility] [address] [place] [address] Yenifer Rolon, TUB OPERATOR [address] [place] [phone] Closed nondisplaced fracture of metatarsal bone of right foot, unspecified metatarsal, initial encounter (Primary Dx) Social History Tobacco Use Types [...] place to sleep or slept in a care home (including now)? No 04/29/2023 Interpersonal Safety [...] Dispensed Refills Start Date End Da te ibuprofen (MOTRIN) 800 mg tablet Take 1 Tablet by mouth every 8 hours as needed for Pain. 60 Tablet 05/19/2023 documented in this encounter Progress Notes * Yenifer Rolon, TUB OPERATOR - 05/19/2023 1000 EDT The concept of ???Telemedicine?? has been described to the patient. Patient has been informed of the anticipated benefits and possible risks. Patient understands the information provided regarding telemedicine, has had the opportunity to ask questions about this information, and all questions havebeen answered to patient???s satisfaction. Patient consents for the use of telemedicine in his/her medical care and authorizes the transmission of any relevant medical information to providers and their staff involved in patient???s medical or mental health care. Patient ID: Jane Blair is an 47 y.o. adult. Chief Complaint Patient presents with ??? Toe Injury TELEMEDICINE VIDEO VISIT Today's visit was provided through telemedicine video conferencing: The location of the patient : Home The location of the provider: Office The following staff and their role did participate in today's encounter visit: MIGUEL Barragan Jane presents via doxy.me today. She says there was a bat in her house and she was running to get away from it and tripped injuring her right foot. She had severe pain and felt a crack so she went [facility] ED on 05/15/23 for evaluation. SHe had an xray which revealed fractures of her right 2nd-4th metatarsals. She was placed in a walking boot and referred to see ortho outpatient urgently. She says she has an appointment with ortho (Dr. Cleveland in [facility]) on 05/25/23. While in the ED she was given iburpofen, which did not help, so she was given oxycodone which helped the pain but also put me in a coma for a few days. She was not discharged with any pain medicine. She says her toesfeel sore. She has not showered as she is nervous to take off the walking boot. She is taking tylenol 1000mg TID without pain relief. She has not been taking ibuprofen as she cannot afford to buy this over the counter. Patient Active Problem List Diagnosis ??? Narcolepsy without cataplexy ??? REM sleep behavior disorder ??? Migraine with aura ??? Episodic mood disorder (HCC-CMS) ??? MDD (major depressive disorder), recurrent episode, moderate ([facility]) ??? GERD without esophagitis ??? Vitamin D deficiency ??? Allergic rhinitis ??? Anxiety ??? Encounter for sterilization Past Medical History: Diagnosis Date ??? Allergic rhinitis ??? Anxiety ??? Asthma exercise induced, last inhaler use 06/26/20 ??? Depression ??? Does not exercise ??? GERD (gastroesophageal reflux disease) ??? Hearing difficulty ??? Heart murmur as a child ??? History of general anesthesia ??? Insomnia ??? Migraines ??? Narcolepsy REM sleep disorder ??? Pain joints ??? Panic attacks ??? Tremors of nervous system ??? Unspecified cerebral artery occlusion with cerebral infarction ??? Vasovagal syncope last episode 04/2020 Current Outpatient Medications on File Prior to Visit Medication Sig Dispense Refill ??? albuterol 90 mcg/actuation inhaler Inhale 1-2 Puffs as directed every 6 hours as needed (shortness of breath). Or 15-30 minutes prior to exercise 1 Inhaler 0 ??? ARIPiprazole (ABILIFY) 10 mg tablet Take 1 Tablet by mouth at bedtime. 90 Tablet 2 ??? wsdfado-pmyxcfixnmvhh-adychyci (EXCEDRIN MIGRAINE) 250-250-65 mg per tablet Take 1 Tablet by mouth every 6 hours as needed. ??? betamethasone dipropionate 0.05 % lotion Apply topically 2 times daily. Twice daily as needed for itch. Do not let it drip onto the face 60 mL 3 ??? cholecalciferol, Vitamin D3, (VITAMIN D3) 125 mcg (5,000 unit) tablet Take 1 Tablet by mouth daily. 100 Tablet 1 ??? citalopram (CELEXA) 40 mg tablet Take 1 Tablet by mouth daily. 90 Tablet 1 ??? clonazePAM (KLONOPIN) 0.5 mg tablet Take 1 and 1/2 tab nightly at bedtime 45 Tablet 2 ??? dextroamphetamine-amphetamine (ADDERALL XR) 30 mg XR capsule 1 po bid 60 Capsule 0 ??? fluticasone propionate (FLONASE) 50 mcg/actuation nasal spray SHAKE LIQUID AND USE 2 SPRAYS IN EACH NOSTRIL DAILY 3 Bottle 0 ??? gabapentin (NEURONTIN) 300 mg capsule Take 1 Capsule by mouth at bedtime. 90 Capsule 1 ??? loratadine (CLARITIN) 10 mg tablet Take 1 Tablet by mouth daily. 100 Tablet 1 ??? LORazepam (ATIVAN) 1 mg tablet Take 1 Tablet by mouth 2 times daily. Daily Max: 2 mg 7 Tablet 0 ??? melatonin 10 mg capsule Take 10 mg by mouth at bedtime. 100 capsule 2 ??? metroNIDAZOLE (METROGEL) 0.75 % gel Apply topically 2 times daily. ??? mupirocin (BACTROBAN) 2 % ointment Apply topically to affected area 2 times daily. For 5 days 22 g 3 ??? omeprazole (PRILOSEC) 20 mg capsule TAKE 1 CAPSULE BY MOUTH TWICE DAILY 90 Capsule 3 ??? semaglutide, weight loss, (WEGOVY) 0.25 mg/0.5 mL pen injector Inject 0.5 mL into the skin every 7 days. 2 mL 2 ??? topiramate (TOPAMAX) 50 mg tablet TAKE 1 AND 1/2 TABLETS BY MOUTH TWICE DAILY 270 Tablet 1 ??? tretinoin (RETIN-A) 0.025 % cream Apply topically to affected area at bedtime. Stat twice weekly, pea sized amount to the whole face. 45 g 6 No current facility-administered medications on file prior to visit. No Known Allergies Social Social History Tobacco Use ??? Smoking status: Never ??? Smokeless tobacco: Never Substance Use Topics ??? Alcohol use: Yes Comment: 1x/month- liquor Review of Systems Constitutional: Negative. Musculoskeletal: Fractured metatarsals 2-4 right foot Objective: Physical Exam Constitutional: General: She is not in acute distress. Appearance: She is well-developed and well-nourished. Musculoskeletal: Comments: Walking boot on right foot Assessment/Plan: Jane Blair is an 47 y.o. female here for The encounter diagnosis was Closed nondisplaced fracture of metatarsal bone of right foot, unspecified metatarsal, initial encounter.. Jane was seen today for toe injury. Diagnoses and all orders for this visit: Closed nondisplaced fracture of metatarsal bone of right foot, unspecified metatarsal, initial encounter Other orders - ibuprofen (MOTRIN) 800 mg tablet; Take 1 Tablet by mouth every 8 hours as needed for Pain. Multiple metatarsal fractures- She has been complaint with her walking boot She will be seeing orthopedics on 05/25/23 Pain is not well controlled on tylenol alone. We discussed a prescription for ibuprofen. I know this was not beneficial for her in the ED however her severe acute pain has dissipated so I think at this point nsaids would be helpful Ibuprofen 800mg TID prn with food, continue alternating with tylenol as needed. Yenifer Rolon APRN documented in this encounter Plan of Treatment Upcoming Encounters Date Type Department Care Team (Late st Contact Info) Description 06/08/2024 13:30 EDT Office Visit [facility] [address] [place] [address] Michelle Shannon MD [address] [place] [phone] documented as of this encounter Visit Diagnoses Diagnosis Closed nondisplaced fracture of metatarsal bone of right foot, unspecified metatarsal, initial encounter- Primary documented in this encounter Discontinued Medications Medication Sig Discontinue Reason Start Date End Da te IBUPROFEN (ADVIL ORAL) Take by mouth daily as needed. 05/19/2023 documented as of this encounter Care Teams Keyboard Instrument Tuner Relationship Specialty Start Date End Date Michelle Shannon MD [address] [place] [phone] PCP - General 09/08/11 documented as of this encounter
--- OUTSIDE RECORDS SUMMARY | 2024-04-28 15:51 | XMS_ITS | Encounter Summary ---
Author Organization [facility] Address [address] [place] [address] Care Team Providers Care Deodorizer Operator Name Role Phone Michelle Shannon MD Primary Care Provider + Reason for Visit * Reason Onset Date Comments Medications Refill 11/23/2022 Encounter Details Date Type Department Care Team (Late st Contact Info) Description 11/23/2022 Refill [facility] 550 [facility] [address] [place], [place] [phone] Michelle Shannon MD [address] [place] [phone] Medications Refill Social History Tobacco [...] slept in a custodial (including now)? No 12/28/2021 Interpersonal Safety Answer [...] Dispensed Refills Start Date End Da te citalopram (CELEXA) 40 mg tablet Take 1 Tablet by mouth daily. 30 Tablet 2 11/23/2022 01/24/2023 documented in this encounter Miscellaneous Notes * Telephone Encounter - Baron Arzate - 11/23/2022 1210 EST Refill. documented in this encounter Plan of Treatment Upcoming Encounters Date Type Department Care Team (Late st Contact Info) Description 06/08/2024 13:30 EDT Office Visit [facility] [address] [facility] [address] [place] [address] Michelle Shannon MD [address] [place] [phone] documented as of this encounter Visit Diagnoses Not on filedocumented in this encounter Discontinued Medications Medication Sig Discontinue Reason Start Date End Da te citalopram (CELEXA) 40 mg tablet Take 1 Tablet by mouth daily. Reorder 09/03/2022 11/23/2022 documented as of this encounter Care Teams Deodorizer Operator Relationship Specialty Start Date End Date Michelle Shannon MD [address] [place] [phone] PCP - General 09/08/11 documented as of this encounter
--- OUTSIDE RECORDS SUMMARY | 2024-04-28 15:51 | XMS_ITS | Encounter Summary ---
Author Organization [facility] Address [address] [place] [address] Care Team Providers Care Cosmetology Professor Name Role Phone Michelle Shannon MD Primary Care Provider + Reason for Visit * Reason Onset Date Comments Medications Refill 06/03/2023 Encounter Details Date Type Department Care Team (Late st Contact Info) Description 06/03/2023 Refill [facility] 550 [facility] [address] [place], [place] [phone] Michelle Shannon MD [address] [place] [phone] Medications Refill Social History Tobacco [...] place to sleep or slept in a penitentiary (including now)? No 04/29/2023 Interpersonal Safety Answer [...] Dispensed Refills Start Date End Da te ARIPiprazole (ABILIFY) 10 mg tablet Take 1 Tablet by mouth at bedtime. 90 Tablet 2 06/03/2023 06/07/2023 documented in this encounter Miscellaneous Notes * Telephone Encounter - Mandi Leon - 06/03/2023 1010 EDT refill documented in this encounter Plan of Treatment Upcoming Encounters Date Type Department Care Team (Late st Contact Info) Description 06/08/2024 13:30 EDT Office Visit [facility] [address] [facility] [address] [place], [place] [phone] Michelle Shannon MD [address] [place] [phone] documented as of this encounter Visit Diagnoses Not on filedocumented in this encounter Discontinued Medications Medication Sig Discontinue Reason Start Date End Da te ARIPiprazole (ABILIFY) 10 mg tablet Take 1 Tablet by mouth at bedtime. Reorder 09/03/2022 06/03/2023 documented as of this encounter Care Teams Cosmetology Professor Relationship Specialty Start Date End Date Michelle Shannon MD [address] [place] [phone] PCP - General 09/08/11 documented as of this encounter
--- OUTSIDE RECORDS SUMMARY | 2024-04-28 15:51 | XMS_ITS | Encounter Summary ---
Author Organization [facility] Address [address] [place] [address] Care Team Providers Care Airline Pilot Name Role Phone Michelle Shannon MD Primary Care Provider + Encounter Details Date Type Department Care Team (Late st Contact Info) Description 01/24/2023 [facility] Mammography - [address] [phone] Susana Lake MD [address] [place] [address], [address] [place] [address] Social History Tobacco Use Types Packs/Day Years [...] slept in a long-term (including now)? No 12/28/2021 Interpersonal Safety Answer Date Record ed How often does anyone, inclu elissa family, hit, punch or physically hurt you? Never 12/28/2021 How often does anyone, inclu elissa family, [...] Info) Description 06/08/2024 13:30 EDT Office Visit [facility] [address] [facility] [address] [place], [place] [phone] Michelle Shannon MD [address] [place] [phone] documented as of this encounter Visit Diagnoses Not on filedocumented in this encounter Care Teams Airline Pilot Relationship Specialty Start Date End Date Michelle Shannon MD [address] [place] [phone] PCP - General 09/08/11 documented as of this encounter
--- OUTSIDE RECORDS SUMMARY | 2024-04-28 15:51 | XMS_ITS | Encounter Summary ---
Author Organization [facility] Address [address] [place] [address] Care Team Providers Care Space Systems Operations Manager Name Role Phone Michelle Shannon MD Primary Care Provider + Reason for Visit * Reason Onset Date Comments Medications Refill 06/07/2023 Encounter Details Date Type Department Care Team (Late st Contact Info) Description 06/07/2023 Refill [facility] [address] [place] [address] Janna Tamayo, JOSEFINA Medications Refill [...] Dispensed Refills Start Date End Da te topiramate (TOPAMAX) 50 mg tablet TAKE 1 AND 1/2 TABLETS BY MOUTH TWICE DAILY 270 Tablet 1 06/07/2023 03/05/2024 documented in this encounter Miscellaneous Notes * Telephone Encounter - Janna Tamayo RN - 06/07/2023 1450 EDT Refill request documented in this encounter Plan of Treatment Upcoming Encounters Date Type Department Care Team (Late st Contact Info) Description 06/08/2024 13:30 EDT Office Visit [facility] 550 [facility] [address] [place] [address] Michelle Shannon MD [address] [place] [phone] documented as of this encounter Visit Diagnoses Not on filedocumented in this encounter Discontinued Medications Medication Sig Discontinue Reason Start Date End Da te topiramate (TOPAMAX) 50 mg tablet TAKE 1 AND 1/2 TABLETS BY MOUTH TWICE DAILY Reorder 09/03/2022 06/07/2023 documented as of this encounter Care Teams Space Systems Operations Manager Relationship Specialty Start Date End Date Michelle Shannon MD [address] [place] [phone] PCP - General 09/08/11 documented as of this encounter
--- OUTSIDE RECORDS SUMMARY | 2024-04-28 15:51 | XMS_ITS | Encounter Summary ---
Author Organization [facility] Address [address] [place] [address] Care Team Providers Care Aquatic Biologist Name Role Phone Michelle Shannon MD Primary Care Provider + Reason for Visit * Reason Onset Date Comments Medications Refill 09/07/2022 Encounter Details Date Type Department Care Team (Late st Contact Info) Description 09/07/2022 Refill [facility] [address] [place] [address] Michelle Shannon MD [address] [place] [phone] Medications Refill Social History Tobacco Use [...] have money to get more. Sometimes true 04/ 12/2021 PRAPARE - Transportation Answer Date Re [...] slept in a fci (including now)? No 12/28/2021 Interpersonal Safety Answer [...] Start Date End Da te clonazePAM (KLONOPIN) 1 mg tablet TAKE 1 TABLET BY MOUTH DAILY AT BEDTIME. MAX: 1 MG 28 Tablet 09/07/2022 09/28/2022 documented in this encounter Miscellaneous Notes * Telephone Encounter - Dayna Guzman - 09/07/2022 1058 EST Refill documented in this encounter Plan of Treatment Upcoming Encounters Date Type Department Care Team (Late st Contact Info) Description 06/08/2024 13:30 EDT Office Visit [facility] [address] [facility] [address] [place] [address] Michelle Shannon MD [address] [place] [phone] documented as of this encounter Visit Diagnoses Not on filedocumented in this encounter Discontinued Medications Medication Sig Discontinue Reason Start Date End Da te clonazePAM (KLONOPIN) 1 mg tablet TAKE 1 TABLET BY MOUTH DAILY AT BEDTIME. MAX: 1 MG Reorder 08/02/2022 09/07/2022 documented as of this encounter Care Teams Aquatic Biologist Relationship Specialty Start Date End Date Michelle Shannon MD [address] [place] [phone] PCP - General 09/08/11 documented as of this encounter
--- OUTSIDE RECORDS SUMMARY | 2024-04-28 15:51 | XMS_ITS | Encounter Summary ---
Author Organization [facility] Address [address] [place] [address] Care Team Providers Care Paper Grader Name Role Phone Michelle Shannon MD Primary Care Provider + Reason for Visit * Reason Onset Date Comments Medications Refill 08/10/2022 Encounter Details Date Type Department Care Team (Late st Contact Info) Description 08/10/2022 Refill [facility] [address] [place] [phone] Michelle Shannon MD [address] [place] [phone] Medications Refill Social History Tobacco Use [...] to sleep or slept in a senior care (including now)? No 12/28/2021 Interpersonal Safety Answer [...] Dispensed Refills Start Date End Da te dextroamphetamine-amphe tamine (ADDERALL XR) 30 mg XR capsule Take 1 Capsule by mouth 2 times daily. Daily Max: 2 Capsules 56 Capsule 08/10/2022 09/03/2022 documented in this encounter Miscellaneous Notes * Telephone Encounter - Dayna Guzman - 08/10/2022 1610 EST Refill documented in this encounter Plan of Treatment Upcoming Encounters Date Type Department Care Team (Late st Contact Info) Description 06/08/2024 13:30 EDT Office Visit [facility] [address] [facility] [address] [place] [address] Michelle Shannon MD [address] [place] [phone] documented as of this encounter Visit Diagnoses Not on filedocumented in this encounter Discontinued Medications Medication Sig Discontinue Reason Start Date End Da te dextroamphetamine-amphe tamine (ADDERALL XR) 30 mg XR capsule Take 1 capsule by mouth 2 times daily. Daily Max: 2 Capsules Reorder 07/06/2022 08/10/2022 documented as of this encounter Care Teams Paper Grader Relationship Specialty Start Date End Date Michelle Shannon MD [address] [place] [phone] PCP - General 09/08/11 documented as of this encounter
--- OUTSIDE RECORDS SUMMARY | 2024-04-28 15:51 | XMS_ITS | Encounter Summary ---
Author Organization [facility] Address [address] [place] [address] Care Team Providers Care Dental Coordinator Name Role Phone Michelle Shannon MD Primary Care Provider + Reason for Visit * Reason Comments New Patient Visit Telemedicine Video Visit * Consult (Routine/Next Available) - New Request Specialty Diagnoses / Procedures [facility] Diagnoses REM sleep behavior disorder MDD (major depressive disorder), recurrent episode, moderate ([facility]) Michelle Shannon MD [address] [place] [address] [facility] [address] [place] [id number] Referral ID Status Reason Start Date Expiration Date Visits Requested Visits Authorized [id number] New Request Specialty Services Required 09/03/2022 1 1 Encounter Details Date Type Department Care Team (Late st Contact Info) Description 01/05/2023 13:30 EDT Telemedicine [facility] Sleep Program - [address] [phone] Jasmeet Sheets MD [address] [facility]. 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 No 12/28/2021 Interpersonal Safety Answer Date Record ed How often does anyone, inclalex bowers family, hit, punch or physically hurt you? Never 12/28/2021 How often does anyone, myron bowers family, [...] tab nightly at bedtime 45 Tablet 2 01/06/2023 04/19/2023 dextroamphetamine-amphet amine (ADDERALL XR) 20 mg XR capsule Please take 2 caps in AM and 1 cap at noon 60 Capsule 01/06/2023 01/07/2023 documented in this encounter Progress Notes * Jasmeet Sheets MD - 01/05/2023 1330 EDT [facility] - Initial Evaluation 05 JAN 2023 Referring MLong.: Michelle Shannon, * The concept of ???Telemedicine?? has been described to the patient.? Patient has been informed of the anticipated benefits and possible risks.? Patient understands the information provided regardingtelemedicine, has had the opportunity to ask questions about this information, and all questions have been answered to patient???s satisfaction. Patient consents for the use of telemedicine in his/her medical care and authorizes the transmission of any relevant medical information to providers and their staff involved in patient???s medical or mental health care. Patient understands that they maybe responsible for copays, deductible or coinsurance for this service. This visit is performed using a teleneurology interface (Stre[employer] software). The patient agrees to participate in the visit via a tele-neurology interface. The patient is at home in a car so she can get better privacy I am performing this visit from my office at a private location. No one else is present in my office during the meeting. Chief Complaint: Chief Complaint Patient presents with ??? New Patient Visit ??? Telemedicine Video Visit HPI: Jane is a 47 y.o. woman referred for evaluation of narcolepsy without cataplexy and REM-sleep behavior disorder. She is concerned that Adderall may be leading to dental problems. She is a former patient of Dr. Prince Turner here at the Sleep [facility] and initially seen on 09 SEP 2008 and the diagnosis of the above problems made at that time and treatment initiated. Her last visit here was in 2016. Jane has been taking Adderall, Clonazepam and Melatonin for this problem since early on her treatment, though previously at lower doses. She takes her first 30 mg of XR Adderall at 8:30 and she reports going back to bed around 9:30. She then wakes up around 12:30 and takes her second capsule and she feels more awake at that point. Of note, she also takes Lorazepam 1 mg twice daily prn and estimates taking it about once in the last week. In recent weeks her typical HS 22:00. No difficulty falling asleep but describes being a light sleeper. Wakes during the night to urinate once per night and no sustained arousals. She reports her last episode of RSBD that she can recall was about 6 mos ago and perhaps 1-2 per year. She associates these events with stress. She recalls that she can be sleeping, and that she talks and may move in her sleep.On one occasion she recalls falling out of bed when she dreamt that she was ducking to not be shot in a dream - this event was before treatment. She reports her bed is a little high and it is a twin bed. She sleeps alone. Weight change: She has gained 65 lb since her first PSG in OCT 2008 No Known Allergies Medication Sig ??? albuterol 90 mcg/actuation inhaler Inhale 1-2 Puffs as directed every 6 hours as needed (shortness of breath). Or 15-30 minutes prior to exercise ??? ARIPiprazole (ABILIFY) 10 mg tablet Take 1 Tablet by mouth at bedtime. ??? mljjtfm-adazbvwuoohdv-ijdwuhkh (EXCEDRIN MIGRAINE) 250-250-65 mg per tablet Take 1 Tab by mouthevery 6 hours as needed. Indications: MIGRAINE ??? betamethasone dipropionate 0.05 % lotion Apply topically 2 times daily. Twice daily as needed for itch. Do not let it drip onto the face ??? cholecalciferol, Vitamin D3, 1,000 unit tablet Take 1,000 Units by mouth daily. ??? citalopram (CELEXA) 40 mg tablet Take 1 Tablet by mouth daily. ??? clonazePAM (KLONOPIN) 1 mg tablet TAKE 1 TABLET BY MOUTH DAILY AT BEDTIME. MAX: 1 MG ??? dextroamphetamine-amphetamine (ADDERALL XR) 30 mg XR capsule Take 1 Capsule by mouth 2 times daily. Daily Max: 2 Capsules ??? fluticasone propionate (FLONASE) 50 mcg/actuation nasal spray SHAKE LIQUID AND USE 2 SPRAYS IN EACH NOSTRIL DAILY ??? gabapentin (NEURONTIN) 300 mg capsule Take 1 Capsule by mouth 2 times daily. ??? IBUPROFEN (ADVIL ORAL) Take by mouth daily as needed. ??? loratadine (CLARITIN) 10 mg tablet Take 1 Tablet by mouth daily. ??? LORazepam (ATIVAN) 1 mg tablet Take 1 Tablet by mouth 2 times daily. Daily Max: 2 mg ??? melatonin 10 mg capsule Take 10 mg by mouth at bedtime. ??? meloxicam (MOBIC) 7.5 mg tablet Take 1 Tablet by mouth 2 times daily as needed for Pain. (Patient not taking: No sig reported) ??? metroNIDAZOLE (METROGEL) 0.75 % gel Apply topically 2 times daily. ??? mupirocin (BACTROBAN) 2 % ointment Apply topically to affected area 2 times daily. For 5 days ??? omeprazole (PRILOSEC) 20 mg capsule TAKE 1 CAPSULE BY MOUTH TWICE DAILY ??? topiramate (TOPAMAX) 50 mg tablet TAKE 1 AND 1/2 TABLETS BY MOUTH TWICE DAILY ??? tretinoin (RETIN-A) 0.025 % cream Apply topically to affected area at bedtime. Stat twice weekly, pea sized amount to the whole face. Medical History Migraine and reports being on Topiramate back in 2009. Her last migraine was about 4 years ago. Karis jaquez reported in her right arm and takes Gabapentin Depression w anxiety and she reports having bipolar - Takes Citalopram, aripiprazole and prn Lorazepam and sees a counselor once pr week Stroke affecting my right hemisphere... I drag my left foot a little, prior to 2009, a silent stroke Exercise induced asthma and chronic rhinitis Past Surgical History: Procedure Laterality Date ??? BREAST BIOPSY clip in left breast ??? CERVIX LESION DESTRUCTION ??? TONSILLECTOMY 2019 Dr. Dumont ??? TUBAL LIGATION 06/2020 ??? TYMPANOSTOMY TUBE PLACEMENT ??? WISDOM TOOTH EXTRACTION Family History: No other family members with sleep-related illness. No children. Has 1 bros w livercirrhosis and pancreatitis and is an ETOHic. Mom has Sjogren disorder, melanoma resected. Maternal aunt w breast ca Social History: Never . Lives with Mom since 2014 and brother recently moved in. No TOB. Rare ETOH. No work, and on SDI. Last worked in 2009. 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 Organizes medical history well and no speech hesitancy or dysphasic error in spontaneous speech. No ptosis. Horizontal and upward gaze intact and w/o nystagmus. No facial asymmetry at rest or withforced eye closure or smile. Prominent facial acne. Good dentition. No dental chipping seen today on video and she notes these were recently repaired. 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 Jane has a complicated set of medical problems. Dental issues are not described with amphetamine on my review of Up to Date though it can cause drymouth (Jane not reporting this problem). REM-sleep behavior disorder Depression on an antidepressant considered to be sedating Chronic pain Migraine Plan: I do think that lowering the dose of Adderall would be a good idea and discuss changing the dose to40 mg in AM and 20 mg at noon at first (as she sleeps for several hours after her first dose in theAM). We could then move to lower the afternoon dose. A reduction in Clonazepam to 0.75 mg and then if tolerated to 0.5 mg may help her daytime tirednessand I think getting the dose of Melatonin down towards 5 mg at some point is also advisable. Jane mentions that she will be meeting a psychiatrist and will consider other treatment options forher depression. One wonders if a more activating agent is a consideration. I plan to see Jane back in 3-4 months. At some point we may need to restudy her sleep, but for now will try optimizing her medications. Jasmeet Sheets MD 01/05/2023 13:41 documented in this encounter Plan of Treatment Upcoming Encounters Date Type Department Care Team (Late st Contact Info) Description 06/08/2024 13:30 EDT Office Visit [facility] [address] [place], [place] [phone] Michelle Shannon MD [address] [place] [phone] documented as of this encounter Visit Diagnoses Diagnosis Narcolepsy without cataplexy- Primary REM sleep behavior disorder documented in this encounter Discontinued Medications Medication Sig Discontinue Reason Start Date End Da te clonazePAM (KLONOPIN) 1 mg tablet TAKE 1 TABLET BY MOUTH DAILY AT BEDTIME. MAX: 1 MG Reorder 12/14/2022 01/06/2023 dextroamphetamine-amphe tamine (ADDERALL XR) 30 mg XR capsule Take 1 Capsule by mouth 2 times daily. Daily Max: 2 Capsules Reorder 12/22/2022 01/06/2023 documented as of this encounter Care Teams Dental Coordinator Relationship Specialty Start Date End Date Michelle Shannon MD [address] [place] [phone] PCP - General 09/08/11 documented as of this encounter
--- OUTSIDE RECORDS SUMMARY | 2024-04-28 15:51 | XMS_ITS | Encounter Summary ---
Author Organization [facility] Address [address] [place] [address] Care Team Providers Care Assistant Professor Of Archaeology Name Role Phone Michelle Shannon MD Primary Care Provider + Reason for Visit * Reason Onset Date Comments Prior Auth, Medication 01/06/2023 Medications Refill 01/06/2023 Encounter Details Date Type Department Care Team (Late st Contact Info) Description 01/06/2023 Refill [facility] - [place] [address] [place] [phone] Jasmeet Sheets MD [address] [place] [address]. [address] [place] [phone] Prior Auth, Medication; Medications Refill Social History Tobacco Use Types [...] in a long term (including now)? No 12/28/2021 Interpersonal Safety Answer [...] Start Date End Da te dextroamphetamine-amphet amine (ADDERALL) 20 mg tablet 2 tabs in AM and 1 tab at noon 90 Tablet 01/13/2023 01/25/2023 dextroamphetamine-amphet amine (ADDERALL XR) 20 mg XR capsule Please take 2 caps in AM and 1 cap at noon 90 Capsule 01/10/2023 01/13/2023 documented in this encounter Miscellaneous Notes * Telephone Encounter - Jasmeet Sheets MD - 01/13/2023 6566 EDT I sent RX for non XR 20 mg tabs. Hopefully that goes thru. Let patient know? * Telephone Encounter - Juliana Díaz RN - 01/11/2023 1353 EDT [facility] Denied coverage for dextroamphetamine-amphetamine PA for XR 20 mg, 3 tabs. Denial decisionletter in Scans. Routed to . * Telephone Encounter - Juliana Díaz RN - 01/10/2023 1408 EDT Received fax from [facility] for additional info- completed and fax back with last visit note. * Telephone Encounter - Juliana Díaz RN - 01/10/2023 1043 EDT Submitted dextroamphetamine-amphetamine PA for XR 20 mg, 3 tabs daily via [employer] [id number]. * Telephone Encounter - Juliana Díaz RN - 01/07/2023 1119 EDT Spoke with Saud Pharmacist at [facility]..Prescription for dextroamphetamine- amphetamine XR 20mg written for two in the am and one in the PM but with a quantity of 60. Written for only a 20d supply Insurance will cover 60/30d. Quantity limit. Pt last filled dextroamphetamin-amphetamine XR 30 mg, 60 on 12/24/22. Pended new order to Provider for review and signature. * Telephone Encounter - Juliana Díaz RN - 01/07/2023 0954 EDT Images from the original note were not included. [facility] Medicare Adv (via [facility]) preferred formulary. * Telephone Encounter - Abbey Powell - 01/06/2023 1613 EDT Joy Pharmacist (Alisia) Needs a PA for: Adderall XR documented in this encounter Plan of Treatment Upcoming Encounters Date Type Department Care Team (Late st Contact Info) Description 06/08/2024 13:30 EDT Office Visit [facility] [address] [place], [place] [phone] Michelle Shannon MD [address] [place] [phone] documented as of this encounter Visit Diagnoses Not on filedocumented in this encounter Discontinued Medications Medication Sig Discontinue Reason Start Date End Da te dextroamphetamine-amphet amine (ADDERALL XR) 20 mg XR capsule Please take 2 caps in AM and 1 cap at noon Reorder 01/06/2023 01/07/2023 dextroamphetamine-amphet amine (ADDERALL XR) 20 mg XR capsule Please take 2 caps in AM and 1 cap at noon 01/10/2023 01/13/2023 documented as of this encounter Care Teams Assistant Professor Of Archaeology Relationship Specialty Start Date End Date Michelle Shannon MD [address] [place] [phone] PCP - General 09/08/11 documented as of this encounter
--- OUTSIDE RECORDS SUMMARY | 2024-04-28 15:51 | XMS_ITS | Encounter Summary ---
Author Organization [facility] Address [address] [place] [address] Care Team Providers Care Corporate Sales Representative Name Role Phone iMchelle Shannon MD Primary Care Provider + Reason for Visit * Reason Onset Date Comments Medications Refill 04/05/2023 Encounter Details Date Type Department Care Team (Late st Contact Info) Description 04/05/2023 Refill [facility] [address] [facility] [address] [place], [place] [phone] Michelle Shannon MD [address] [place] [phone] Medications Refill Social History Tobacco [...] slept in a half-way (including now)? No 12/28/2021 Interpersonal Safety Answer [...] * Telephone Encounter - Baron Arzate - 04/05/2023 1401 EDT Refill. documented in this encounter Plan of Treatment Upcoming Encounters Date Type Department Care Team (Late st Contact Info) Description 06/08/2024 13:30 EDT Office Visit [facility] [address] [facility] [address] [place] [address] Michelle Shannon MD [address] [place] [phone] documented as of this encounter Visit Diagnoses Not on filedocumented in this encounter Care Teams Corporate Sales Representative Relationship Specialty Start Date End Date Michelle Shannon MD [address] [place] [phone] PCP - General 09/08/11 documented as of this encounter
--- OUTSIDE RECORDS SUMMARY | 2024-04-28 15:51 | XMS_ITS | Encounter Summary ---
Author Organization [facility] Address [address] [place] [address] Care Team Providers Care Bench Assembler Electrical Name Role Phone Michelle Shannon MD Primary Care Provider + Reason for Visit * Reason Onset Date Comments Appointment Related 04/27/2023 Follow-up 04/27/2023 Encounter Details Date Type Department Care Team (Late st Contact Info) Description 04/27/2023 Telephone [facility] Sleep [facility] - [address] [phone] Jasmeet Sheets MD [address] [place] [address]. [address] [place] [address] Appointment Related; Follow-up Social History Tobacco Use Types Packs/Day Years [...] place to sleep or slept in a group home (including now)? No 04/29/2023 Interpersonal Safety [...] encounter Miscellaneous Notes * Telephone Encounter - Rosalva Aleman - 05/02/2023 1148 EDT Called patient from the Sleep MD Recall list to Reschedule a 4 Month Follow Up via [employer]IDEO LONG with Dr. Jasmeet Sheets on or around next available (Recall date 04/26/2023).ALYOM and sent a [employer] message. This is our 3rd attempt at contacting the patient, Deleting Recall. Upon patient call back, please assist the patient with scheduling using the information above. Scheduling Instructions: 4 month fur [employer] Televideo * Telephone Encounter - Rosemarie Tan MA - 04/27/2023 1118 EDT Patient did not show for a televideo appointment with Dr. Sheets at 11:00 AM on 10/28/23. Patient was contacted over the phone 3 times and did not answer. documented in this encounter Plan of Treatment Upcoming Encounters Date Type Department Care Team (Late st Contact Info) Description 06/08/2024 13:30 EDT Office Visit [facility] [address] [facility] [address] [place], [place] [phone] Michelle Shannon MD [address] [place] [phone] documented as of this encounter Visit Diagnoses Not on filedocumented in this encounter Care Teams Bench Assembler Electrical Relationship Specialty Start Date End Date Michelle Shannon MD [address] [place] [phone] PCP - General 09/08/11 documented as of this encounter
--- OUTSIDE RECORDS SUMMARY | 2024-04-28 15:51 | XMS_ITS | Encounter Summary ---
Author Organization [facility] Address [address] [place] [address] Care Team Providers Care Bilingual Executive Assistant Name Role Phone Michelle Shannon MD Primary Care Provider + Reason for Visit * Reason Onset Date Comments Medications Refill 01/25/2023 Encounter Details Date Type Department Care Team (Late st Contact Info) Description 01/25/2023 Refill [facility] [address] [facility] [address] [place], [place] [phone] Michelle Shannon MD [address] [place] [phone] Medications Refill Social History Tobacco [...] in a group home (including now)? No 12/28/2021 Interpersonal Safety [...] and 1 tab at noon 90 Tablet 01/25/2023 03/21/2023 documented in this encounter Miscellaneous Notes * Telephone Encounter - Dayna Guzman - 01/25/2023 1630 EDT Pharmacy change - script cancelled at other pharmacy. DAYNA WEBB MA documented in this encounter Plan of Treatment Upcoming Encounters Date Type Department Care Team (Late st Contact Info) Description 06/08/2024 13:30 EDT Office Visit [facility] [address] [facility] [address] [place] [address] Michelle Shannon MD [address] [place] [phone] documented as of this encounter Visit Diagnoses Not on filedocumented in this encounter Discontinued Medications Medication Sig Discontinue Reason Start Date End Da te dextroamphetamine-ampheta mine (ADDERALL) 20 mg tablet 2 tabs in AM and 1 tab at noon Reorder 01/13/2023 01/25/2023 documented as of this encounter Care Teams Bilingual Executive Assistant Relationship Specialty Start Date End Date Michelle Shannon MD [address] [place] [phone] PCP - General 09/08/11 documented as of this encounter
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
--- OUTSIDE RECORDS SUMMARY | 2024-04-28 15:51 | XMS_ITS | Encounter Summary ---
Author Organization [facility] Address [address] [place] [address] Care Team Providers Care Global Chief Experience Officer Name Role Phone Michelle Shannon MD Primary Care Provider + Reason for Visit * Reason Onset Date Comments Medications Refill 11/17/2022 Encounter Details Date Type Department Care Team (Late st Contact Info) Description 11/17/2022 Refill [facility] [address] [facility] [address] [place], [place] [phone] Michelle Shannon MD [address] [place] [phone] Medications Refill Social History Tobacco [...] slept in a [facility] (including now)? No 12/28/2021 Interpersonal Safety Answer [...] daily. Daily Max: 2 Capsules 56 Capsule 11/17/2022 12/22/2022 documented in this encounter Miscellaneous Notes * Telephone Encounter - Baron Arzate - 11/17/2022 1453 EST Refill. documented in this encounter Plan of Treatment Upcoming Encounters Date Type Department Care Team (Late st Contact Info) Description 06/08/2024 13:30 EDT Office Visit [facility] [address] [facility] [address] [place] [address] Michelle Shannon MD [address] [place] [phone] documented as of this encounter Visit Diagnoses Not on filedocumented in this encounter Discontinued Medications Medication Sig Discontinue Reason Start Date End Da te dextroamphetamine-amphe tamine (ADDERALL XR) 30 mg XR capsule Take 1 Capsule by mouth 2 times daily. Daily Max: 2 Capsules Reorder 10/13/2022 11/17/2022 documented as of this encounter Care Teams Global Chief Experience Officer Relationship Specialty Start Date End Date Michelle Shannon MD [address] [place] [phone] PCP - General 09/08/11 documented as of this encounter
--- OUTSIDE RECORDS SUMMARY | 2024-04-28 15:51 | XMS_ITS | Encounter Summary ---
Author Organization [facility] Address [address] [place] [address] Care Team Providers Care Leather Stitcher Name Role Phone Michelle Shannon MD Primary Care Provider + Encounter Details Date Type Department Care Team (Late st Contact Info) Description 04/05/2023 Orders Only [facility] [address] [place], [place] [phone] Luiz Grant, DNP [address] [place] [address] Social History Tobacco Use Types [...] slept in a prison (including now)? No 12/28/2021 Interpersonal Safety Answer [...] daily. Daily Max: 2 mg 30 Tablet 04/05/2023 04/19/2023 documented in this encounter Plan of Treatment Upcoming Encounters Date Type Department Care Team (Late st Contact Info) Description 06/08/2024 13:30 EDT Office Visit [facility] [address] [place], [place] [phone] Michelle Shannon MD [address] [place] [phone] documented as of this encounter Visit Diagnoses Not on filedocumented in this encounter Discontinued Medications Medication Sig Discontinue Reason Start Date End Da te LORazepam (ATIVAN) 1 mg tablet Take 1 Tablet by mouth 2 times daily. Daily Max: 2 mg Reorder 03/02/2023 04/05/2023 documented as of this encounter Care Teams Leather Stitcher Relationship Specialty Start Date End Date Michelle Shannon MD [address] [place] [phone] PCP - General 09/08/11 documented as of this encounter
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
--- OUTSIDE RECORDS SUMMARY | 2024-04-28 15:51 | XMS_ITS | Encounter Summary ---
Author Organization [facility] Address [address] [place] [address] Care Team Providers Care Carburizing Furnace Operator Name Role Phone Michelle Shannon MD Primary Care Provider + Reason for Referral * Radiology Services (Routine/Next Available) - Authorization Not Required Specialty Diagnoses / Procedures Referred By Contac t Referred To Contact Radiology Diagnoses Breast cancer screening, high risk patient Procedures MR BREAST SCREENING W WO CONTRAST BILATERAL MR BREAST BILAT. WO AND OR W CONTRAST Michelle Shannon MD [address] [place] [phone] [facility] Referral ID Status Reason Start Date Expiration Date Visits Requested Visits Authorized [id number] Authorization Not Required 01/24/2023 1 1 Reason for Visit * Radiology Services (Routine/Next Available) - Authorization Not Required Specialty Diagnoses / Procedures Referred By Contac t Referred To Contact Radiology Diagnoses Breast cancer screening, high risk patient Procedures MR BREAST SCREENING W WO CONTRAST BILATERAL MR BREAST BILAT. WO AND OR W CONTRAST Michelle Shannon MD [address] [place] [phone] [facility] Referral ID Status Reason Start Date Expiration Date Visits Requested Visits Authorized [id number] Authorization Not Required 01/24/2023 1 1 Encounter Details Date Type Department Care Team (Latest Contact Info) Description 05/10/2023 17:20 EDT - 05/10/2023 23:59 EDT Hospital Encounter [facility] Radiology MRI - Main [address] [address] Breast cancer screening, high risk patient Discharge Disposition: Home or Self Care Social History Tobacco Use Types Packs/Day Years [...] - Inhaled Oxygen Concentration - - Weight 89.7 kg (197 lb 12 oz) 05/10/20231906 ED T Height 162.6 cm (5' 4.02) 05/10/20231906 EDT Body Mass Index 33.93 05/10/20231906 EDT documented in this encounter Medications at Time of Discharge Medication Sig Dispensed Refills Start Date End Date albuterol 90 mcg/actuation inhaler Inhale 1-2 Puffs as directed every 6 hours as needed (shortness of breath). Or 15-30 minutes prior to exercise 1 Inhaler 03/16/2018 aspirin-acetaminophen- caffeine (EXCEDRIN MIGRAINE) 250-250-65 mg per tabletIndications:migr stefan Take 1 Tablet by mouth every 6 hours as needed. betamethasone dipropionate 0.05 % lotion Apply topically 2 times daily. Twice daily as needed for itch. Do not let it drip onto the face 60 mL 3 11/19/2020 cholecalciferol, Vitamin D3, (VITAMIN D3) 125 mcg (5,000 unit) tablet Take 1 Tablet by mouth daily. 100 Tablet 1 04/25/2023 fluticasone propionate (FLONASE) 50 mcg/actuation nasal spray SHAKE LIQUID AND USE 2 SPRAYS IN EACH NOSTRIL DAILY 3 Bottle 02/06/2021 melatonin 10 mg capsule Take 10 mg by mouth at bedtime. 100 capsule 2 12/07/2021 metroNIDAZOLE (METROGEL) 0.75 % gel Apply topically 2 times daily. ARIPiprazole (ABILIFY) 10 mg tablet Take 1 Tablet by mouth at bedtime. 90 Tablet 2 09/03/2022 06/03/2023 citalopram (CELEXA) 40 mg tablet Take 1 Tablet by mouth daily. 90 Tablet 1 01/24/2023 09/06/2023 clonazePAM (KLONOPIN) 0.5 mg tablet Take 1 and 1/2 tab nightly at bedtime 45 Tablet 2 04/19/2023 09/06/2023 dextroamphetamine-amph etamine (ADDERALL XR) 30 mg XR capsule 1 po bid 60 Capsule 05/03/2023 06/07/2023 gabapentin (NEURONTIN) 300 mg capsule Take 1 Capsule by mouth at bedtime. 90 Capsule 1 01/24/2023 08/17/2023 IBUPROFEN (ADVIL ORAL) Take by mouth daily as needed. 05/19/2023 loratadine (CLARITIN) 10 mg tablet Take 1 Tablet by mouth daily. 100 Tablet 1 01/24/2023 09/06/2023 LORazepam (ATIVAN) 1 mg tablet Take 1 Tablet by mouth 2 times daily. Daily Max: 2 mg 7 Tablet 05/07/2023 2023 mupirocin (BACTROBAN) 2 % ointment Apply topically to affected area 2 times daily. For 5 days 22 g 3 11/19/2020 10/19/2023 omeprazole (PRILOSEC) 20 mg capsule TAKE 1 CAPSULE BY MOUTH TWICE DAILY 90 Capsule 3 04/25/2023 02/06/2024 semaglutide, weight loss, (WEGOVY) 0.25 mg/0.5 mL pen injector Inject 0.5 mL into the skin every 7 days. 2 mL 2 04/25/2023 2023 topiramate (TOPAMAX) 50 mg tablet TAKE 1 AND 1/2 TABLETS BY MOUTH TWICE DAILY 270 Tablet 1 09/03/2022 06/07/2023 tretinoin (RETIN-A) 0.025 % cream Apply topically to affected area at bedtime. Stat twice weekly, pea sized amount to the whole face. 45 g 6 11/21/2020 12/07/2023 documented as of this encounter Discharge Disposition Disposition Code Departure Means Destination Home or Self Care documented in this encounter Plan of Treatment Upcoming Encounters Date Type Department Care Team (Late st Contact Info) Description 06/08/2024 13:30 EDT Office Visit [facility] [address] [place], [place] [phone] Michelle Shannon MD [address] [place] [phone] documented as of this encounter Procedures Procedure Name Priority Date/Time Associated Diagnosis Comments MR BREAST SCREENING W WO CONTRAST BILATERAL Routine 05/10/2023 20:01 EDT Breast cancer screening, high risk patient documented in this encounter Results * MR BREAST SCREENING [...] breast cancer is greater than 20%, per [employer] guidelines, annual MRI screening is recommended in addition to mammography. The patient will be notified of the breast imaging results via a lay letter from Radiology. ??Radiology will contact the patient directly regarding any findings which require additional imaging. FINAL BI-RADS ASSESSMENT: BI-RADS 2: Benign [id number] Narrative 05/11/2023 9:39 EDT MR BREAST SCREENING [...] were reviewed on a PACS workstation and Sribu viewing platform with and without subtraction. 3D [...] documented in this encounter Visit Diagnoses Diagnosis Breast cancer screening, high risk patient Screening mammogram for high-risk patient documented in this encounter Administered Medications Inactive Administered Medications - up to 3 most recent administrations Medication Order MAR Action Action Date Dose Rate Site gadoterate meglumine solution 1-30 mL 1-30 mL, intravenous, Once in imaging, 1 dose, Starting on 05/10/23 at 1910, Until 05/10/23 at 2002, Routine, Imaging Protocol Orders Given 05/10/2023 20:02 EDT 18 mL documented in this encounter Orders Medications Ordered That Suleman ht Not Have Been Administered Count Last Ordered Date First Ordered Date gadoterate meglumine solution 1-30 mL 1 documented in this encounter Care Teams Carburizing Furnace Operator Relationship Specialty Start Date End Date Michelle Shannon MD [address] [place] [phone] PCP - General 09/08/11 documented as of this encounter
--- OUTSIDE RECORDS SUMMARY | 2024-04-28 15:51 | XMS_ITS | Encounter Summary ---
Author Organization [facility] Address [address] [place] [address] Care Team Providers Care Quality Control Supervisor Name Role Phone Michelle Shannon MD Primary Care Provider + Reason for Visit * Reason Onset Date Comments Medications Refill 12/22/2022 Encounter Details Date Type Department Care Team (Late st Contact Info) Description 12/22/2022 Refill Corwin Elliott MD [address] [phone] Michelle Shannon MD [address] [place] [phone] Medications Refill Social History Tobacco Use [...] * Telephone Encounter - Dayna Guzman - 12/22/2022 1532 EDT Refill documented in this encounter Plan of Treatment Upcoming Encounters Date Type Department Care Team (Late st Contact Info) Description 06/08/2024 13:30 EDT Office Visit [facility] [address] [place] [address] Michelle Shannon MD [address] [place] [phone] documented as of this encounter Visit Diagnoses Not on filedocumented in this encounter Care Teams Quality Control Supervisor Relationship Specialty Start Date End Date Michelle Shannon MD [address] [place] [phone] PCP - General 09/08/11 documented as of this encounter
--- OUTSIDE RECORDS SUMMARY | 2024-04-28 15:51 | XMS_ITS | Encounter Summary ---
Author Organization [facility] Address [address] [place] [address] Care Team Providers Care Dancer Or Choreographer Name Role Phone Michelle Shannon MD Primary Care Provider + Reason for Visit * Reason Onset Date Comments Medications Refill 08/24/2022 Encounter Details Date Type Department Care Team (Late st Contact Info) Description 08/24/2022 Refill [facility] [address] [place] [phone] Michelle Shannon MD [address] [place] [phone] Medications Refill Social History Tobacco Use [...] daily. Daily Max: 2 mg 30 Tablet 08/30/2022 09/28/2022 documented in this encounter Miscellaneous Notes * Telephone Encounter - Dayna Guzman - 08/24/2022 1345 EST Refill documented in this encounter Plan of Treatment Upcoming Encounters Date Type Department Care Team (Late st Contact Info) Description 06/08/2024 13:30 EDT Office Visit [facility] [address] [facility] [address] [place], [place] [phone] Michelle Shannon MD [address] [place] [phone] documented as of this encounter Visit Diagnoses Not on filedocumented in this encounter Discontinued Medications Medication Sig Discontinue Reason Start Date End Da te LORazepam (ATIVAN) 1 mg tablet Take 1 Tablet by mouth 2 times daily. Daily Max: 2 mg Reorder 08/02/2022 08/24/2022 documented as of this encounter Care Teams Dancer Or Choreographer Relationship Specialty Start Date End Date Michelle Shannon MD [address] [place] [phone] PCP - General 09/08/11 documented as of this encounter
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
--- OUTSIDE RECORDS SUMMARY | 2024-04-28 15:51 | XMS_ITS | Encounter Summary ---
Author Organization [facility] Address [address] [place] [address] Care Team Providers Care Assistant Director Of Security Name Role Phone Michelle Shannon MD Primary Care Provider + Reason for Visit * Reason Onset Date Comments Prior Auth, Medication 05/03/2023 Encounter Details Date Type Department Care Team (Late st Contact Info) Description 05/03/2023 Telephone [facility] Sleep Program - [place] [address] [place] [phone] Jasmeet Sheets MD [address] [facility]. Level [address] [place] [address] Prior Auth, Medication Social History Tobacco Use Types Packs/Day Years [...] encounter Miscellaneous Notes * Telephone Encounter - Katiuska Arnett - 05/03/2023 0607 EDT Jane is calling because of issues she is having with getting refill for Adderall. At with Dr. Sheets on 01/05/2023, adjustments were planned for dosages but she has been unable to get refill becauseit needs Prior Authorization. Refill request sent by PCP received by pharmacy on 04/25, pending PA. Routed to Sleep Nurse to call her back to discuss. documented in this encounter Plan of Treatment Upcoming Encounters Date Type Department Care Team (Late st Contact Info) Description 06/08/2024 13:30 EDT Office Visit [facility], [address] [facility] [address] [place] [phone] Michelle Shannon MD [address] [place] [phone] documented as of this encounter Visit Diagnoses Not on filedocumented in this encounter Care Teams Assistant Director Of Security Relationship Specialty Start Date End Date Michelle Shannon MD [address] [place] [phone] PCP - General 09/08/11 documented as of this encounter
--- OUTSIDE RECORDS SUMMARY | 2024-04-28 15:51 | XMS_ITS | Encounter Summary ---
Author Organization [facility] Address [address] [place] [address] Care Team Providers Care Armature Coil Winder Name Role Phone Michelle Shannon MD Primary Care Provider + Reason for Visit * Reason Onset Date Comments Foot Injury 05/18/2023 Encounter Details Date Type Department Care Team (Late st Contact Info) Description 05/18/2023 Telephone [facility] 550 [facility] [address] [place] [address] Curtis Casillas RN Foot Injury Social History Tobacco Use Types Packs/Day Years [...] Telephone Encounter - Curtis Casillas RN - 05/18/2023 0947 EDT Pt called, she states 3 days ago she twisted her rt foot and fractured her 2nd, 3rd, 4th metatarsals. She states she was seen at the [facility] ED and was sent home with a boot. She states she hasan orthopedic f/u appointment on 05/25. She is requesting a visit in meantime to discuss pain control. Pt forwarded to our temporary receptionist to schedule. Will cc Dr. Shannon to see if she remembers receiving these ED notes, if not I will call to requestrecords. CURTIS CASILLAS RN documented in this encounter Plan of Treatment Upcoming Encounters Date Type Department Care Team (Late st Contact Info) Description 06/08/2024 13:30 EDT Office Visit [facility] 550 [facility] [address] [place] [phone] Michelle Shannon MD [address] [place] [phone] documented as of this encounter Visit Diagnoses Not on filedocumented in this encounter Care Teams Armature Coil Winder Relationship Specialty Start Date End Date Michelle Shannon MD [address] [place] [phone] PCP - General 09/08/11 documented as of this encounter
--- OUTSIDE RECORDS SUMMARY | 2024-04-28 15:51 | XMS_ITS | Encounter Summary ---
Author Organization [facility] Address [address] [place] [address] Care Team Providers Care Rehabilitation Program Coordinator Name Role Phone Michelle Shannon MD Primary Care Provider + Reason for Visit * Reason Onset Date Comments Medications Refill 11/16/2022 Encounter Details Date Type Department Care Team (Late st Contact Info) Description 11/16/2022 Refill [facility] 550 [facility] [place] [address] [place], [place] [phone] Michelle Shannon MD [address] [place] [phone] Medications Refill Social History Tobacco [...] daily. Daily Max: 2 mg 30 Tablet 11/16/2022 12/14/2022 clonazePAM (KLONOPIN) 1 mg tablet TAKE 1 TABLET BY MOUTH DAILY AT BEDTIME. MAX: 1 MG 28 Tablet 11/16/2022 12/14/2022 documented in this encounter Miscellaneous Notes * Telephone Encounter - Baron Arzate - 11/16/2022 7566 EST Refill. documented in this encounter Plan of Treatment Upcoming Encounters Date Type Department Care Team (Late st Contact Info) Description 06/08/2024 13:30 EDT Office Visit [facility] [address] [place] [address] [address] [place] [phone] Michelle Shannon MD [address] [place] [phone] documented as of this encounter Visit Diagnoses Not on filedocumented in this encounter Discontinued Medications Medication Sig Discontinue Reason Start Date End Da te clonazePAM (KLONOPIN) 1 mg tablet TAKE 1 TABLET BY MOUTH DAILY AT BEDTIME. MAX: 1 MG Reorder 10/05/2022 11/16/2022 LORazepam (ATIVAN) 1 mg tablet Take 1 Tablet by mouth 2 times daily. Daily Max: 2 mg Reorder 09/28/2022 11/16/2022 documented as of this encounter Care Teams Rehabilitation Program Coordinator Relationship Specialty Start Date End Date Michelle Shannon MD [address] [place] [phone] PCP - General 09/08/11 documented as of this encounter
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
--- OUTSIDE RECORDS SUMMARY | 2024-04-28 15:51 | XMS_ITS | Encounter Summary ---
Author Organization [facility] Address [address] [place] [address] Care Team Providers Care High Lift Operator Name Role Phone Michelle Shannon MD Primary Care Provider + Encounter Details Date Type Department Care Team (Late st Contact Info) Description 05/10/2023 Lab Requisition [facility] Pathology & Laboratory Medicine - [facility] [address] [place] [address] Radha Salazar, DATA MANAGEMENT ANALYST [address] [place] [address] Encounter for other general examination Social History Tobacco Use Types Packs/Day Years [...] Info) Description 06/08/2024 13:30 EDT Office Visit [facility] [address] [facility] [address] [place] [address] Michelle Shannon MD [address] [place] [phone] documented as of this encounter Procedures Procedure Name Priority Date/Time Associated Diagnosis Comments PAP TEST Today 05/09/2023 9:30 EDT Encounter for other general examination HPV DNA DETECTION WITH GENOTYPING, PCR Today 05/09/2023 9:30 EDT Encounter for other general examination documented in this encounter Results * HUMAN PAPILLOMAVIRUS (HPV) DETECTION-HIGH RISK TYPES (05/09/2023 9:30 EDT) HPV other High Risk types, PCR Negative Negative 05/18/2023 15:12 EDT [facility] Comment:No E6 or E7 mRNA is detected from HPV types 16,18,31,33,35,39,45,51,52,56,58,59,66, and 68 by on site property manager mediated amplification. Pap Test CERVIX UTERI STRUCTURE / Unknown 05/09/2023 9:30 EDT 05/17/2023 13:18 EDT Radha Salazar APRN MICROBIOLOGY - GE NERAL ORDERABLES [facility] [address] [place] [address] * PAP TEST (05/09/2023 9:30 EDT) Specimens A. Cervix and/or Endocervix , ThinPrep Imaging System with Manual Evaluation 05/18/2023 15:12 T [facility] Specimen Adequacy Satisfactory for Evaluation - transformation zone component absent 05/18/2023 15:12 [facility] General Categorization Negative for intraepithelial lesion or malignancy 05/18/2023 15:12 [facility] Descriptive Diagnosis Shift in gurdeep present suggestive of bacterial vaginosis. 05/18/2023 15:12 [facility] Attestation . 05/18/2023 15:12 [facility] at 1512 Clinical History SEE BELOW 05/18/20 15:12 [facility] HPV The result for the Human Papillomavirus (HPV) Detection-High Risk Types is Negative. No E6 or E7 mRNA is detected from HPV types 16,18,31,33,35,39 ,45,51,52,56,58,5 9,66, and 68 by on site property manager mediated amplification.Marii ting was performed on specimen [id number] and was resulted on 05/18/2023 1512 EDT by JENNIFER, LAB INSTRUMENT RESULTS IN 05/18/2023 15:12 EDT [facility] Performing Lab [facility] 05/18/2023 15:12 EDT [facility] Scanned Images 05/18/2023 15:12 EDT [facility] Pap Test CERVIX UTERI STRUCTURE / Unknown 05/09/2023 9:30 EDT 05/10/2023 12:03 EDT Newton Hamilton A Martin DATA MANAGEMENT ANALYST PATHOLOGY ORDERAB LES [facility] [address] [place] [address] documented in this encounter Visit Diagnoses Diagnosis Encounter for other general examination documented in this encounter Care Teams High Lift Operator Relationship Specialty Start Date End Date Michelle Shannon MD [address] [place] [phone] PCP - General 09/08/11 documented as of this encounter
--- OUTSIDE RECORDS SUMMARY | 2024-04-28 15:51 | XMS_ITS | Encounter Summary ---
Author Organization [facility] Address [address] [place] [address] Care Team Providers Care Christian Science Nurse Name Role Phone Michelle Shannon MD Primary Care Provider + Reason for Visit * Reason Onset Date Comments Medications Refill 10/13/2022 Encounter Details Date Type Department Care Team (Late st Contact Info) Description 10/13/2022 Refill [facility] [address] [facility] [address] [place], [place] [phone] Michelle Shannon MD [address] [place] [phone] Medications Refill Social History Tobacco [...] slept in a fdc (including now)? No 12/28/2021 Interpersonal Safety Answer [...] daily. Daily Max: 2 Capsules 56 Capsule 10/13/2022 11/17/2022 documented in this encounter Miscellaneous Notes * Telephone Encounter - Baron Arzate - 10/13/2022 1410 EST Refill. documented in this encounter Plan of Treatment Upcoming Encounters Date Type Department Care Team (Late st Contact Info) Description 06/08/2024 13:30 EDT Office Visit [facility] [address] [facility] [address] [place] [address] Michelle Shannon MD [address] [place] [phone] documented as of this encounter Visit Diagnoses Not on filedocumented in this encounter Discontinued Medications Medication Sig Discontinue Reason Start Date End Da te dextroamphetamine-amphe tamine (ADDERALL XR) 30 mg XR capsule Take 1 Capsule by mouth 2 times daily. Daily Max: 2 Capsules Reorder 09/03/2022 10/13/2022 documented as of this encounter Care Teams Christian Science Nurse Relationship Specialty Start Date End Date Michelle Shannon MD [address] [place] [address] [phone] PCP - General 09/08/11 documented as of this encounter
--- OUTSIDE RECORDS SUMMARY | 2024-04-28 15:51 | XMS_ITS | Encounter Summary ---
Author Organization [facility] Address [address] [place] [address] Care Team Providers Care Pta Name Role Phone Michelle Shannon MD Primary Care Provider + Reason for Visit * Reason Onset Date Comments Results 05/07/2023 Encounter Details Date Type Department Care Team (Late st Contact Info) Description 05/07/2023 Telephone [facility] [address] [facility] [address] [place], [place] [phone] Michelle Shannon MD [address] [place] [phone] Results Social History Tobacco Use [...] encounter Miscellaneous Notes * Telephone Encounter - Michelle Shannon MD - 05/07/20232147 EDT I spoke to Jane about her lorazepam refill request. Over the last 2 months, her use has increased from an average of 1/day to 2/day. This correlates to a reduction in her clonazepam use. We discussedthat I do not want her exchanging a reduction in the clonazepam with an increase in the lorazepam. I will refill 7 tablets, and I asked her to try and make this last for a full week. If she feels like her anxiety is still unmanageable, we may need to consider other alternatives. documented in this encounter Plan of Treatment Upcoming Encounters Date Type Department Care Team (Late st Contact Info) Description 06/08/2024 13:30 EDT Office Visit [facility] [address] [place], [place] [phone] Michelle Shannon MD [address] [place] [phone] documented as of this encounter Visit Diagnoses Not on filedocumented in this encounter Care Teams Pta Relationship Specialty Start Date End Date Michelle Shannon MD [address] [place] [phone] PCP - General 09/08/11 documented as of this encounter
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
--- OUTSIDE RECORDS SUMMARY | 2024-04-28 15:51 | XMS_ITS | Encounter Summary ---
Author Organization [facility] Address [address] [place] [address] Care Team Providers Care Boulevard Glassware Replacer Name Role Phone Michelle Shannon MD Primary Care Provider + Reason for Visit * Reason Onset Date Comments Medications Refill 12/22/2022 Encounter Details Date Type Department Care Team (Late st Contact Info) Description 12/22/2022 Refill [facility] [address] [place], [place] [phone] Luiz Grant, [address] [address] Medications Refill Social History Tobacco Use [...] place to sleep or slept in a alf (including now)? No 12/28/2021 Interpersonal Safety Answer [...] daily. Daily Max: 2 Capsules 56 Capsule 12/22/2022 01/06/2023 documented in this encounter Plan of Treatment Upcoming Encounters Date Type Department Care Team (Late st Contact Info) Description 06/08/2024 13:30 EDT Office Visit [facility] [address] [facility] [address] [place] [address] Michelle Shannon MD [address] [place] [address] documented as of this encounter Visit Diagnoses Not on filedocumented in this encounter Discontinued Medications Medication Sig Discontinue Reason Start Date End Da te dextroamphetamine-amphe tamine (ADDERALL XR) 30 mg XR capsule Take 1 Capsule by mouth 2 times daily. Daily Max: 2 Capsules Reorder 11/17/2022 12/22/2022 documented as of this encounter Care Teams Boulevard Glassware Replacer Relationship Specialty Start Date End Date Michelle Shannon MD [address] [place] [phone] PCP - General 09/08/11 documented as of this encounter
--- OUTSIDE RECORDS SUMMARY | 2024-04-28 15:51 | XMS_ITS | Encounter Summary ---
Author Organization [facility] Address [address] [place] [address] Care Team Providers Care Agriculture Specialist Name Role Phone Michelle Shannon MD Primary Care Provider + Reason for Visit * Reason Onset Date Comments Medications Refill 12/14/2022 Encounter Details Date Type Department Care Team (Late st Contact Info) Description 12/14/2022 Refill [facility] [address] [facility] [address] [place], [place] [phone] Michelle Shannon MD [address] [place] [address] Medications Refill Social History Tobacco [...] place to sleep or slept in a longterm (including now)? No 12/28/2021 Interpersonal Safety Answer [...] daily. Daily Max: 2 mg 30 Tablet 12/14/2022 01/24/2023 clonazePAM (KLONOPIN) 1 mg tablet TAKE 1 TABLET BY MOUTH DAILY AT BEDTIME. MAX: 1 MG 28 Tablet 12/14/2022 01/06/2023 documented in this encounter Miscellaneous Notes * Telephone Encounter - Baron Arzate - 12/14/2022 1345 EDT Refill. documented in this encounter Plan of Treatment Upcoming Encounters Date Type Department Care Team (Late st Contact Info) Description 06/08/2024 13:30 EDT Office Visit [facility] [address] [place] [address] Michelle Shannon MD [address] [place] [phone] documented as of this encounter Visit Diagnoses Not on filedocumented in this encounter Discontinued Medications Medication Sig Discontinue Reason Start Date End Da te clonazePAM (KLONOPIN) 1 mg tablet TAKE 1 TABLET BY MOUTH DAILY AT BEDTIME. MAX: 1 MG Reorder 11/16/2022 12/14/2022 LORazepam (ATIVAN) 1 mg tablet Take 1 Tablet by mouth 2 times daily. Daily Max: 2 mg Reorder 11/16/2022 12/14/2022 documented as of this encounter Care Teams Agriculture Specialist Relationship Specialty Start Date End Date Michelle Shannon MD [address] [place] [phone] PCP - General 09/08/11 documented as of this encounter
--- OUTSIDE RECORDS SUMMARY | 2024-04-28 15:51 | XMS_ITS | Encounter Summary ---
Author Organization [facility] Address [address] [place] [address] Care Team Providers Care Certified Technician Name Role Phone Michelle Shannon MD Primary Care Provider + Reason for Visit * Reason Onset Date Comments Medications Refill 04/19/2023 Encounter Details Date Type Department Care Team (Late st Contact Info) Description 04/19/2023 Refill [facility] [address] [facility] [address] [place], [place] [phone] Michelle Shannon MD [address] [place] [address] Medications Refill Social History Tobacco [...] slept in a assisted (including now)? No 12/28/2021 Interpersonal Safety Answer [...] daily. Daily Max: 2 mg 30 Tablet 04/19/2023 05/07/2023 clonazePAM (KLONOPIN) 0.5 mg tablet Take 1 and 1/2 tab nightly at bedtime 45 Tablet 2 04/19/2023 09/06/2023 documented in this encounter Miscellaneous Notes * Telephone Encounter - Baron Arzate - 04/19/2023 1128 EDT Refills. documented in this encounter Plan of Treatment Upcoming Encounters Date Type Department Care Team (Late st Contact Info) Description 06/08/2024 13:30 EDT Office Visit [facility] [address] [place] [address] Michelle Shannon MD [address] [place] [phone] documented as of this encounter Visit Diagnoses Not on filedocumented in this encounter Discontinued Medications Medication Sig Discontinue Reason Start Date End Da te clonazePAM (KLONOPIN) 0.5 mg tablet Take 1 and 1/2 tab nightly at bedtime Reorder 01/06/2023 04/19/2023 LORazepam (ATIVAN) 1 mg tablet Take 1 Tablet by mouth 2 times daily. Daily Max: 2 mg Reorder 04/05/2023 04/19/2023 documented as of this encounter Care Teams Certified Technician Relationship Specialty Start Date End Date Michelle Shannon MD [address] [place] [phone] PCP - General 09/08/11 documented as of this encounter
--- OUTSIDE RECORDS SUMMARY | 2024-04-28 15:51 | XMS_ITS | Encounter Summary ---
Author Organization [facility] Address [address] [place] [address] Care Team Providers Care Information Technology Data Analyst Name Role Phone Michelle Shannon MD Primary Care Provider + Reason for Visit * Reason Onset Date Comments Medications Refill 05/06/2023 Encounter Details Date Type Department Care Team (Late st Contact Info) Description 05/06/2023 Refill [facility] 550 [facility] [address] [place], [place] [phone] Michelle Shannon MD [address] [place] [phone] Medications Refill Social History Tobacco [...] * Telephone Encounter - Baron Arzate - 05/06/2023 1612 EDT Refill. documented in this encounter Plan of Treatment Upcoming Encounters Date Type Department Care Team (Late st Contact Info) Description 06/08/2024 13:30 EDT Office Visit [facility] 550 [facility] [address] [place] [address] Michelle Shannon MD [address] [place] [phone] documented as of this encounter Visit Diagnoses Not on filedocumented in this encounter Care Teams Information Technology Data Analyst Relationship Specialty Start Date End Date Michelle Shannon MD [address] [place] [phone] PCP - General 09/08/11 documented as of this encounter
--- OUTSIDE RECORDS SUMMARY | 2024-04-28 15:51 | XMS_ITS | Encounter Summary ---
Author Organization [facility] Address [address] [place] [address] Care Team Providers Care Certified Energy Manager Name Role Phone Michelle Shannon MD Primary Care Provider + Reason for Visit * Reason Onset Date Comments Medications Refill 03/02/2023 Encounter Details Date Type Department Care Team (Late st Contact Info) Description 03/02/2023 Refill [facility] 550 [facility] [address] [place], [place] [phone] Michelle Shannon MD [address] [place] [phone] Medications Refill Social History Tobacco [...] daily. Daily Max: 2 mg 30 Tablet 03/02/2023 04/05/2023 documented in this encounter Miscellaneous Notes * Telephone Encounter - Baron Arzate - 03/02/2023 1133 EDT Refill. documented in this encounter Plan of Treatment Upcoming Encounters Date Type Department Care Team (Late st Contact Info) Description 06/08/2024 13:30 EDT Office Visit [facility] 550 [facility] [address] [place] [address] Michelle Shannon MD [address] [place] [phone] documented as of this encounter Visit Diagnoses Not on filedocumented in this encounter Discontinued Medications Medication Sig Discontinue Reason Start Date End Da te LORazepam (ATIVAN) 1 mg tablet Take 1 Tablet by mouth 2 times daily. Daily Max: 2 mg Reorder 01/24/2023 03/02/2023 documented as of this encounter Care Teams Certified Energy Manager Relationship Specialty Start Date End Date Michelle Shannon MD [address] [place] [phone] PCP - General 09/08/11 documented as of this encounter
--- OUTSIDE RECORDS SUMMARY | 2024-04-28 15:51 | XMS_ITS | Encounter Summary ---
Author Organization [facility] Address [address] [place] [address] Care Team Providers Care Angiography Technologist Name Role Phone Michelle Shannon MD Primary Care Provider + Reason for Visit * Reason Onset Date Comments Prior Auth, Medication 04/29/2023 Encounter Details Date Type Department Care Team (Late st Contact Info) Description 04/29/2023 Telephone [facility] 550 [facility] [address] [place], [place] [phone] Michelle Shannon MD [address] [place] [phone] Prior Auth, Medication Social History Tobacco Use [...] Dispensed Refills Start Date End Da te dextroamphetamine-amphetamine (ADDERALL XR) 30 mg XR capsule 1 po bid 60 Capsule 05/03/2023 06/07/2023 documented in this encounter Miscellaneous Notes * Telephone Encounter - Michelle Shannon MD - 05/03/2023 5459 EDT I spoke to Jane and let her know that Wegovy is not covered by her insurance. We could consider other oral medications to assist with weight loss. Also, her insurance would not cover Adderall 3 tablets a day. Will go back to her original dosing of 30 mg twice a day until she can follow-up with Dr. Sheets to revise the plan * Telephone Encounter - Baron Arzate - 05/02/2023 1433 EDT Pt's PA was denied. Your plan limit is 60 capsules per 30 days. Baron Arzate MA * Telephone Encounter - Baron Arzate - 04/29/2023 1354 EDT Pt called saying that her wegovy and adderall both need PA's. The PA for wegovy was denied. Drugs,when used for anorexia, weight loss or weight gain, are excluded from coverage under Medicare rules. I will submit a PA for the adderall now. Baron Arzate MA documented in this encounter Plan of Treatment Upcoming Encounters Date Type Department Care Team (Late st Contact Info) Description 06/08/2024 13:30 EDT Office Visit [facility] 550 [facility] [address] [place] [address] Michelle Shannon MD [address] [place] [phone] documented as of this encounter Visit Diagnoses Not on filedocumented in this encounter Discontinued Medications Medication Sig Discontinue Reason Start Date End Da te dextroamphetamine-amphet amine (ADDERALL XR) 20 mg XR capsule Please take 2 caps in AM and 1 cap at noon Reorder 04/25/2023 05/03/2023 documented as of this encounter Care Teams Angiography Technologist Relationship Specialty Start Date End Date Michelle Shannon MD [address] [place] [phone] PCP - General 09/08/11 documented as of this encounter
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
--- OUTSIDE RECORDS SUMMARY | 2024-04-28 15:51 | XMS_ITS | Encounter Summary ---
Author Organization [facility] Address [address] [place] [address] Care Team Providers Care Child Welfare Director Name Role Phone Michelle Shannon MD Primary Care Provider + Reason for Visit * Reason Onset Date Comments Medications Refill 09/28/2022 Encounter Details Date Type Department Care Team (Late st Contact Info) Description 09/28/2022 Refill [facility] 550 [facility] [address] [place], [place] [phone] Michelle Shannon MD [address] [place] [phone] Medications Refill Social History Tobacco [...] slept in a [facility] (including now)? No 12/28/2021 Interpersonal Safety Answer [...] daily. Daily Max: 2 mg 30 Tablet 09/28/2022 11/16/2022 clonazePAM (KLONOPIN) 1 mg tablet TAKE 1 TABLET BY MOUTH DAILY AT BEDTIME. MAX: 1 MG 28 Tablet 10/05/2022 11/16/2022 documented in this encounter Miscellaneous Notes * Telephone Encounter - Baron Arzate - 09/28/2022 1520 EST Refill. documented in this encounter Plan of Treatment Upcoming Encounters Date Type Department Care Team (Late st Contact Info) Description 06/08/2024 13:30 EDT Office Visit [facility] [address] [place] [address] [address] [place] [phone] Michelle Shannon MD [address] [place] [phone] documented as of this encounter Visit Diagnoses Not on filedocumented in this encounter Discontinued Medications Medication Sig Discontinue Reason Start Date End Da te clonazePAM (KLONOPIN) 1 mg tablet TAKE 1 TABLET BY MOUTH DAILY AT BEDTIME. MAX: 1 MG Reorder 09/07/2022 09/28/2022 LORazepam (ATIVAN) 1 mg tablet Take 1 Tablet by mouth 2 times daily. Daily Max: 2 mg Reorder 08/30/2022 09/28/2022 documented as of this encounter Care Teams Child Welfare Director Relationship Specialty Start Date End Date Michelle Shannon MD [address] [place] [phone] PCP - General 09/08/11 documented as of this encounter
--- OUTSIDE RECORDS SUMMARY | 2024-04-28 15:52 | XMS_ITS | Encounter Summary ---
Author Organization [facility] Address [address] [place] [address] Care Team Providers Care Vice Principal Name Role Phone Michelle Shannon MD Primary Care Provider + Reason for Visit * Reason Onset Date Comments Medications Refill 06/23/2022 Encounter Details Date Type Department Care Team (Late st Contact Info) Description 06/23/2022 Refill [facility] [address] [place] [phone] Michelle Shannon MD [address] [place] [phone] Medications Refill Social History Tobacco Use [...] slept in a [facility] (including now)? No 12/28/2021 Interpersonal Safety Answer [...] AT BEDTIME. MAX: 1 MG 28 Tablet 06/23/2022 08/02/2022 documented in this encounter Miscellaneous Notes * Telephone Encounter - Elizabeth Kauffman - 06/23/2022 1516 EDT refill documented in this encounter Plan of Treatment Upcoming Encounters Date Type Department Care Team (Late st Contact Info) Description 06/08/2024 13:30 EDT Office Visit [facility] 550 [facility] [address] [place], [place] [phone] Michelle Shannon MD [address] [place] [phone] documented as of this encounter Visit Diagnoses Not on filedocumented in this encounter Discontinued Medications Medication Sig Discontinue Reason Start Date End Da te clonazePAM (KLONOPIN) 1 mg tablet TAKE 1 TABLET BY MOUTH DAILY AT BEDTIME. MAX: 1 MG Reorder 05/19/2022 06/23/2022 documented as of this encounter Care Teams Vice Principal Relationship Specialty Start Date End Date Michelle Shannon MD [address] [place] [phone] PCP - General 09/08/11 documented as of this encounter
--- OUTSIDE RECORDS SUMMARY | 2024-04-28 15:52 | XMS_ITS | Encounter Summary ---
Author Organization [facility] Address [address] [place] [address] Care Team Providers Care Photonics Engineer Name Role Phone Michelle Shannon MD Primary Care Provider + Reason for Visit * Reason Onset Date Comments Appointment Related 07/05/2022 Encounter Details Date Type Department Care Team (Late st Contact Info) Description 07/05/[address] [facility] & Upper Extremity Program - [address] [address] Manuel Dupree MD [address] [place] [phone] Appointment Related Social History Tobacco Use Types [...] slept in a detention (including now)? No 12/28/2021 Interpersonal Safety Answer [...] encounter Miscellaneous Notes * Telephone Encounter - Siri Hendrickson MA - 07/05/2022 1343 EDT Left message for Jane to schedule MRI follow up with Dr. uDpree. MRI scheduled on 07/12/22. Gave instructions to call back our scheduling office at [phone] to make this appointment. Scheduling, please schedule OV week of the or after to ensure MRI is complete and images are read. SIRI HENDRICKSON MA 07/05/22 documented in this encounter Plan of Treatment Upcoming Encounters Date Type Department Care Team (Late st Contact Info) Description 06/08/2024 13:30 EDT Office Visit [facility] 550 [facility] [address] [place] [address] Michelle Shannon MD [address] [place] [phone] documented as of this encounter Visit Diagnoses Not on filedocumented in this encounter Care Teams Photonics Engineer Relationship Specialty Start Date End Date Michelle Shannon MD [address] [place] [phone] PCP - General 09/08/11 documented as of this encounter
--- OUTSIDE RECORDS SUMMARY | 2024-04-28 15:52 | XMS_ITS | Encounter Summary ---
Author Organization [facility] Address [address] [place] [address] Care Team Providers Care Molding Machine Setter Name Role Phone Michelle Shannon MD Primary Care Provider + Encounter Details Date Type Department Care Team (Latest Contact Info) Description 02/18/2022 14:30 EDT Ancillary Procedure [facility] Physical Medicine & Rehabilitation - [address] [place], [place] [phone] Right arm pain Social History Tobacco Use Types Packs/Day Years [...] Info) Description 06/08/2024 13:30 EDT Office Visit [facility] 550 [facility] [address] [place] [address] Michelle Shannon MD [address] [place] [phone] documented as of this encounter Procedures Procedure Name Priority Date/Time Associated Diagnosis Comments POC US PHYSIATRY EXTREMITY LIMITED Routine 02/18/2022 14:41 EDT Right arm pain documented in this encounter Results * POC US PHYSIATRY EXTREMITY LIMITED (02/18/2022 14:41 EDT) Narrative [facility] - 02/18/2022 14:41 EDT This is a non-reportable exam. Siena Ledezma MD IMG US POC ORDERABLE S [facility] POINT [facility]ARE documented in this encounter Visit Diagnoses Diagnosis Right arm pain Pain in limb documented in this encounter Care Teams Molding Machine Setter Relationship Specialty Start Date End Date Michelle Shannon MD [address] [place] [phone] PCP - General 09/08/11 documented as of this encounter
--- OUTSIDE RECORDS SUMMARY | 2024-04-28 15:52 | XMS_ITS | Encounter Summary ---
Author Organization [facility] Address [address] [place] [address] Care Team Providers Care Foot Gatherer Name Role Phone Michelle Shannon MD Primary Care Provider + Reason for Visit * Reason Onset Date Comments Medication Management 03/31/2022 Encounter Details Date Type Department Care Team (Late st Contact Info) Description 03/31/2022 Telephone [facility] [address] [place] [phone] Michelle Shannon MD [address] [place] [phone] Medication Management Social History Tobacco Use Types Packs/Day Years [...] Tablet by mouth daily. 30 Tablet 2 03/31/2022 06/10/2022 documented in this encounter Miscellaneous Notes * Telephone Encounter - Dayna Guzman - 03/31/2022 1414 EDT Pt LM requesting refill for Celexa 40 mg. Currently prescribed [address] to [facility] pharmacy. DAYNA WEBB MA documented in this encounter Plan of Treatment Upcoming Encounters Date Type Department Care Team (Late st Contact Info) Description 06/08/2024 13:30 EDT Office Visit [facility] 550 [facility] [address] [place] [address] Michelle Shannon MD [address] [place] [phone] documented as of this encounter Visit Diagnoses Not on filedocumented in this encounter Discontinued Medications Medication Sig Discontinue Reason Start Date End Da te DULoxetine (CYMBALTA) 60 mg capsule TAKE 1 CAPSULE BY MOUTH DAILY 06/08/2021 03/31/2022 citalopram (CELEXA) 20 mg tablet Take 20 mg by mouth daily. Reorder 03/31/2022 documented as of this encounter Care Teams Foot Gatherer Relationship Specialty Start Date End Date Michelle Shannon MD [address] [place] [phone] PCP - General 09/08/11 documented as of this encounter
--- OUTSIDE RECORDS SUMMARY | 2024-04-28 15:52 | XMS_ITS | Encounter Summary ---
Author Organization [facility] Address [address] [place] [address] Care Team Providers Care Corporate Quality Manager Name Role Phone Michelle Shannon MD Primary Care Provider + Reason for Referral * Radiology Services (Routine/Next Available) - Authorization Not Required Specialty Diagnoses / Procedures Referred By Controlo t Referred To Contact Radiology Diagnoses Right elbow pain Procedures MR ELBOW WO CONTRAST RIGHT Manuel Dupree MD [address] [place] [phone] [facility] Referral ID Status Reason Start Date Expiration Date Visits Requested Visits Authorized [id number] Authorization Not Required 06/09/2022 1 1 Encounter Details Date Type Department Care Team (Late st Contact Info) Description 06/09/2022 Orders Only [facility] - [address] [place] [address] Manuel Dupree MD [address] [place] [phone] Right elbow pain (Primary Dx) Social History Tobacco Use [...] Info) Description 06/08/2024 13:30 EDT Office Visit [facility] [address] [facility] [address] [place] [address] Michelle Shannon MD [address] [place] [phone] documented as of this encounter Results * MR ELBOW WO CONTRAST RIGHT (07/12/2022 11:16 EDT) Anatomical Region Laterality Modality Upper Extremities Right Magnetic Reson ance 07/12/2022 21:3 0 EDT Impressions 07/12/2022 21:30 EDT Right Elbow MRI Moderate tendinosis with low-grade interstitial tearing of the distal insertional biceps tendon at the radial tuberosity with enthesopathic changes and radial tuberosity edema. Narrative 07/12/2022 21:30 EDT Exam: MR ELBOW WO CONTRAST RIGHT ??07/12/2022 10:45 AM Technique: MR ELBOW WO CONTRAST RIGHT ?? History: right arm pain Comparison: None. Findings: Medial Compartment: Ulnar collateral ligament: Intact Common flexor tendon: Intact Lateral Compartment: Radial collateral ligament: Intact Lateral ulnar collateral ligament: Intact Common extensor tendon: Intact Posterior Compartment Triceps: Intact Olecranon: Normal. Bursitis: None Anterior Compartment Biceps: Moderate tendinosis with low-grade interstitial tearing of the distal insertional fibers with insertional enthesopathic changes. Brachialis: Intact Bicipitoradial bursa: Limited bursal fluid. Bones: Edema within the radial tuberosity with enthesopathic changes. Cartilage: Preserved Muscles: Within normal limits. Nerves: Normal signal. Procedure Note Dany Franklin MD - 07/12/2022 Exam: MR ELBOW WO CONTRAST RIGHT 07/12/2022 10:45 AM Technique: MR ELBOW WO CONTRAST RIGHT History: right arm pain Comparison: None. Findings: Medial Compartment: Ulnar collateral ligament: Intact Common flexor tendon: Intact Lateral Compartment: Radial collateral ligament: Intact Lateral ulnar collateral ligament: Intact Common extensor tendon: Intact Posterior Compartment Triceps: Intact Olecranon: Normal. Bursitis: None Anterior Compartment Biceps: Moderate tendinosis with low-grade interstitial tearing of thedistal insertional fibers with insertional enthesopathic changes. Brachialis: Intact Bicipitoradial bursa: Limited bursal fluid. Bones: Edema within the radial tuberosity with enthesopathic changes. Cartilage: Preserved Muscles: Within normal limits. Nerves: Normal signal. IMPRESSION Right Elbow MRI Moderate tendinosis with low-grade interstitial tearing of the distalinsertional biceps tendon at the radial tuberosity with enthesopathicchanges and radial tuberosity edema. Manuel Dupree MD IMG MRI ORDERABLES documented in this encounter Visit Diagnoses Diagnosis Right elbow pain- Primary Pain in joint, upper arm Right elbow pain Pain in joint, upper arm documented in this encounter Care Teams Corporate Quality Manager Relationship Specialty Start Date End Date Michelle Shannon MD [address] [place] [phone] PCP - General 09/08/11 documented as of this encounter
--- OUTSIDE RECORDS SUMMARY | 2024-04-28 15:52 | XMS_ITS | Encounter Summary ---
Author Organization [facility] Address [address] [place] [address] Care Team Providers Care Zinc Skimmer Name Role Phone Michelle Shannon MD Primary Care Provider + Reason for Visit * Reason Comments Other Encounter Details Date Type Department Care Team (Late st Contact Info) Description 05/21/2022 Refill [facility] [address] [place] [phone] Michelle Shannon MD [address] [place] [phone] Other Social History Tobacco Use Types Packs/Day Years [...] Info) Description 06/08/2024 13:30 EDT Office Visit [facility] [address] [facility] [address] [place], [place] [phone] Michelle Shannon MD [address] [place] [phone] documented as of this encounter Visit Diagnoses Not on filedocumented in this encounter Care Teams Zinc Skimmer Relationship Specialty Start Date End Date Michelle Shannon MD [address] [place] [phone] PCP - General 09/08/11 documented as of this encounter
--- OUTSIDE RECORDS SUMMARY | 2024-04-28 15:52 | XMS_ITS | Encounter Summary ---
Author Organization [facility] Address [address] [place] [address] Care Team Providers Care Monotyper Name Role Phone Michelle Shannon MD Primary Care Provider + Reason for Visit * Reason Onset Date Comments Medications Refill 06/10/2022 Encounter Details Date Type Department Care Team (Late st Contact Info) Description 06/10/2022 Refill [facility] [address] [place] [phone] Michelle Shannon MD [address] [place] [phone] Medications Refill Social History Tobacco Use [...] slept in a fpc (including now)? No 12/28/2021 Interpersonal Safety Answer Date Record ed How often does anyone, inclu elsisa family, hit, punch or physically hurt you? [...] Tablet by mouth daily. 30 Tablet 2 06/10/2022 09/03/2022 omeprazole (PRILOSEC) 20 mg capsule TAKE 1 CAPSULE BY MOUTH TWICE DAILY 180 capsule 1 06/10/2022 04/25/2023 documented in this encounter Miscellaneous Notes * Telephone Encounter - Dayna Guzman - 06/10/2022 1302 EDT Refill documented in this encounter Plan of Treatment Upcoming Encounters Date Type Department Care Team (Late st Contact Info) Description 06/08/2024 13:30 EDT Office Visit [facility] [address] [facility] [address] [place] [phone] Michelle Shannon MD [address] [place] [phone] documented as of this encounter Visit Diagnoses Not on filedocumented in this encounter Discontinued Medications Medication Sig Discontinue Reason Start Date End Da te omeprazole (PRILOSEC) 20 mg capsule TAKE 1 CAPSULE BY MOUTH TWICE DAILY Reorder 04/25/2022 06/10/2022 citalopram (CELEXA) 40 mg tablet Take 1 Tablet by mouth daily. Reorder 03/31/2022 06/10/2022 documented as of this encounter Care Teams Monotyper Relationship Specialty Start Date End Date Michelle Shannon MD [address] [place] [phone] PCP - General 09/08/11 documented as of this encounter
--- OUTSIDE RECORDS SUMMARY | 2024-04-28 15:52 | XMS_ITS | Encounter Summary ---
Author Organization [facility] Address [address] [place] [address] Care Team Providers Care Allergy Physician Name Role Phone Michelle Shannon MD Primary Care Provider + Reason for Visit * Reason Onset Date Comments Medications Refill 03/19/2022 Encounter Details Date Type Department Care Team (Late st Contact Info) Description 03/19/2022 Refill [facility] [address] [place] [address] Michelle Shannon MD [address] [place] [phone] Medications Refill Social History Tobacco Use [...] mg capsule Take 1 capsule by mouth 3 times daily. Use bid 90 capsule 2 03/19/2022 03/22/2022 documented in this encounter Miscellaneous Notes * Telephone Encounter - Dayna Guzman - 03/19/2022 1426 EDT Refill documented in this encounter Plan of Treatment Upcoming Encounters Date Type Department Care Team (Late st Contact Info) Description 06/08/2024 13:30 EDT Office Visit [facility] [address] [facility] [address] [place] [address] Michelle Shannon MD [address] [place] [phone] documented as of this encounter Visit Diagnoses Not on filedocumented in this encounter Discontinued Medications Medication Sig Discontinue Reason Start Date End Da te gabapentin (NEURONTIN) 300 mg capsule Take 1 capsule by mouth 3 times daily. Use bid Reorder 12/28/2021 03/19/2022 documented as of this encounter Care Teams Allergy Physician Relationship Specialty Start Date End Date Michelle Shannon MD [address] [place] [phone] PCP - General 09/08/11 documented as of this encounter
--- OUTSIDE RECORDS SUMMARY | 2024-04-28 15:52 | XMS_ITS | Encounter Summary ---
Author Organization [facility] Address [address] [place] [address] Care Team Providers Care Design Drafter Name Role Phone Michelle Shannon MD Primary Care Provider + Reason for Referral * Consult (See Order Priority) - Authorization Not Required Specialty Diagnoses / Procedures Referred By Contac t Referred To Contact Multidisciplinary Diagnoses Financial difficulties Michelle Shannon MD [address] [place] [address] [facility] [address] [facility], [address] [place] [address] Referral ID Status Reason Start Date Expiration Date Visits Requested Visits Authorized [id number] Authorization Not Required Specialty Services Required 2 1 1 Question Answer What areas would you like the CHT to focus on? Church Organist (If [facility] primary care patient, please refer to [id number] Home Care Management for Social Work support instead) If Yes to Church Organist, Please Select from the Following: Housing Patient's Weight (kg) (1 lb = 0.4536 kg): 89.4 * Consult (See Order Priority) - Authorization Not Required Specialty Diagnoses / Procedures Referred By Contac t Referred To Contact Orthopedic Surgery Diagnoses Radial tunnel syndrome Michelle Shannon MD [address] [place] [address] Joaquin Jimenez MD [address] [place] [phone] Referral ID Status Reason Start Date Expiration Date Visits Requested Visits Authorized [id number] Authorization Not Required Specialty Services Required 05/04/2022 1 1 Comments Persistent RUE pain and sx consistent with radial tunnel. 2 conflicting EMG reports (second EMG was supposed to be the left side, but right was repeated) Reason for Visit * Reason Comments Follow-up 1 month f/u Encounter Details Date Type Department Care Team (Late st Contact Info) Description 05/04/2022 11:00 EDT Office Visit [facility] [address] [place] [phone] Michelle Shannon MD [address] [place] [phone] Radial tunnel syndrome (Primary Dx); Metabolic acidosis; Financial difficulties Social History Tobacco Use Types [...] [place] [facility] (including now)? No 12/28/2021 Interpersonal Safety Answer [...] Sign Reading Time Taken Comments Blood Pressure 98/70 05/04/2022 1110 EDT Pulse 84 05/04/2022 1110 EDT Temperature 36.4 ??C (97.5 ??F) 05/04/2022 1110 EDT Respiratory Rate - - Oxygen Saturation 98% 05/04/2022 1110 EDT Inhaled Oxygen Concentration - - Weight 89.4 kg (197 lb) 05/04/2022 1110 EDT Height - - Body Mass Index 33.81 11/17/20202028 EST documented in this encounter Ordered Prescriptions Prescription Sig Dispensed Refills Start Date End Da te LORazepam (ATIVAN) 1 mg tablet Take 1 Tablet by mouth 2 times daily. Daily Max: 2 mg 30 Tablet 05/05/2022 07/06/2022 gabapentin (NEURONTIN) 300 mg capsule Take 1 capsule by mouth 2 times daily. 60 capsule 2 05/04/2022 09/03/2022 documented in this encounter Progress Notes * Michelle Shannon MD - 05/04/2022 1100 EDT Jane Blair 46 y.o. 05/13[birth year]2022 Subjective: Chief Complaint Patient presents with ??? Follow-up 1 month f/u HPI Jane is following up today for her chronic issues of depression, anxiety, excoriation disorder, narcolepsy, and REM sleep disorder. She also is still suffering from right arm and shoulder pain exacerbated by a fall in August 2021. She has a history of bilateral radicular pain in both arms that began in March 2021.Sx escalated after a fall onto her right wrist in Aug 2021. Most pain is localized around the right elbow and antecubital area but she also has some pain in her right wrist.. Prior right UE EMG in January showed radial and ulnar slowing. However, she was seen by Dr. Botello couple weeks ago and was supposed to have an EMG of the left upper extremity. Instead, the right upper extremity was repeated and the test this time was normal. Now, she is not sure how to proceed. Her left upper extremity pain is not as severe as the right. Her pain is affecting sleep, and her only comfortable position is laying on her back with her right arm across to her abdomen with the elbow slightly flexed. She still has significant pain triggered by pronation and flexing her biceps. She also has been experience persistent numbness inthe right 4th-5th fingers. She has completed occupational therapy and had a previous steroid shot with some improvement. At her last visit, gabapentin was increased to 300 in the morning and 600 in the evening, but she does not notice any improvement in her pain. Instead, the medicine seems to be making her feel more drowsy during the day. Her anxiety level remains very high. She and her mother were supposed to move out of their current home 2 months ago but still had nowhere to go. She tells me she will be evicted if they do not leavewithin the next week. I have reached out to her video games storywriter, Aixa did not hear back regarding whether she was receiving any assistance acquiring new housing. Jane reports she is not getting any help through [facility] or [facility]. Her psychiatrist at [facility] left the practice and she has not been assigned a new provider, although she is still connected to her therapist Erasmo. Prior to her psychiatrist's departure, she was transitioned to Celexa 40 mg a day. Due to the ongoing stressors, it is difficult tell if this is working. She believes her picking disorder is a bit worse. She feels her life is in chaos right now which is obviously impacting her anxiety level as well. Her grandmother recently and at the she was crying uncontrollably, but otherwise, she does not feel her depressionhas been quite as bad. She denies any recent suicidal ideation. She is taking lorazepam to once a day in addition to clonazepam at bedtime. Her other chronic psychiatric medicines include Abilify, and Adderall. Active Problem List Patient Active Problem List Diagnosis ??? Narcolepsy without cataplexy ??? REM sleep behavior disorder ??? Migraine with aura ??? Episodic mood disorder (HCC-CMS) (HCC) ??? MDD (major depressive disorder), recurrent episode, moderate (HCC) ??? GERD without esophagitis ??? Vitamin D deficiency ??? Allergic rhinitis ??? Anxiety ??? Encounter for [facility] Past Medical History: Diagnosis Date ??? Allergic [...] EXTRACTION Medications Current Outpatient Medications Medication ??? acetylcysteine 600 mg capsule ??? adapalene 0.3 % gel ??? albuterol 90 mcg/actuation inhaler ??? ARIPiprazole (ABILIFY) 10 mg tablet ??? agdrsmf-pdkiagvouiehl-fhpljdrf (EXCEDRIN MIGRAINE) 250-250-65 mg per tablet ??? betamethasone dipropionate 0.05 % lotion ??? cholecalciferol, Vitamin D3, 1,000 unit tablet ??? citalopram (CELEXA) 40 mg tablet ??? clonazePAM (KLONOPIN) 1 mg tablet ??? dextroamphetamine-amphetamine (ADDERALL XR) 30 mg XR capsule ??? ferrous gluconate (FERGON) 324 mg (38 mg iron) tablet ??? fluticasone propionate (FLONASE) 50 mcg/actuation nasal spray ??? gabapentin (NEURONTIN) 300 mg capsule ??? IBUPROFEN (ADVIL ORAL) ??? ketoconazole (NIZORAL) 2 % shampoo ??? loratadine (CLARITIN) 10 mg tablet ??? [...] and has insomnia. Forgetful OBJECTIVE: Vitals: BP 98/70 Pulse 84 Temp 36.4 ??C (97.5 ??F) (Temporal) Wt 89.4 kg (197 lb) SpO2 98% BMI 33.81 kg/m?? Physical Exam Constitutional: She appears well-developed and overweight. No physical distress. Cardiovascular: Normal rate, regular rhythm, Musculoskeletal: RUE- Minimal tenderness lateral epicondyle Tender over right ulnar groove No pain with resisted right wrist extension, and mild wrist pain with resisted pronation Biceps reflex normal 2+, 1+ on the left Skin: Multiple excoriations on the face Neuro: Mildly tremulous Psychiatric: Affect is anxious and tearful. Her speech is normal. Behavior is cooperative. She doesnot exhibit a depressed mood. Pt is mildly forgetful. ASSESSMENT and PLAN Jane was seen today for follow-up. Diagnoses and all orders for this visit: Radial tunnel syndrome - AMB CONS/FOLLOW UP ORTHOPEDICS - [facility]; Future Metabolic acidosis - COMPREHENSIVE METABOLIC PANEL (CMP) Financial difficulties - AMB CONS/FOLLOW UP [facility]ITY [facility] TEAM; Future Other orders - gabapentin (NEURONTIN) 300 mg capsule; Take 1 capsule by mouth 2 times daily. - LORazepam (ATIVAN) 1 mg tablet; Take 1 Tablet by mouth 2 times daily. Daily Max: 2 mg . Major depressive disorder, excoriation disorder, narcolepsy and REM sleep disorder. Increasing sx with stressors and suicidal thoughts with added stressors. Excoriation disorder is more active with recent social stressors Currently taking Celexa 40 mg, but may need further adjustment. Melatonin at hs Continue Adderall XR 30mg bid Abilify 10mg a day Clonazepam 1 mg at bedtime Continue Lorazepam 1 mg p.o. 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 Current reduced mobility and paresthesia of the right fourth and fifth fingers Initial right EMG in January showed slowing of both the radial and ulnar nerves. However, a recent repeat right upper extremity EMG revealed a normal exam. It seems this examination was performed in error since it was the left upper extremity that was supposed to be evaluated. Given the discrepant EMG readings, will refer her back to Ortho hand. Her exam is most consistent with ulnar neuropathy. Continue PT/OT Reduce Gabapentin back to 300mg bid due to lack of benefit and worsening fatigue Migraines- Continue topamax 75mg bid. Avoid increase due to metabolic acidosis Stopped Maxalt due to lack of efficacy and interaction with starting Celexa Continue ibuprofen 800mg as needed She also uses Excedrin prn BMP yearly, due today Housing concerns and pending homelessness Previously discussed COTS, but she has 2 cats which may be an issue Will refer to T social work Michelle Shannon MD documented in this encounter Plan of Treatment Upcoming Encounters Date Type Department Care Team (Late st Contact Info) Description 06/08/2024 13:30 EDT Office Visit [facility] [address] [place] [address] Michelle Shannon MD [address] [place] [phone] Scheduled Referrals Name Type Priority Associated Diagnoses Order Schedule AMB CONS/FOLLOW UP ORTHOPEDICS - [facility] Outpatient Referral Routine/Next Available Radial tunnel syndrome Expected: 05/11/2022 (Approximate), Expires: 05/04/2023 AMB CONS/FOLLOW UP [facility] Outpatient Referral Urgent Financial difficulties Expected: 05/07/2022 (Approximate), Expires: 05/04/2023 documented as of this encounter Procedures Procedure Name Priority Date/Time Associated Diagnosis Comments COMPREHENSIVE METABOLIC PANEL (CMP) Routine 05/04/2022 11:55 EDT Metabolic acidosis documented in this encounter Results * (ABNORMAL) COMPREHENSIVE METABOLIC PANEL (CMP) (05/04/2022 11:55 EDT) Sodium 143 136 - 145 mmol/L 05/04/2022 19:01 [facility] Potassium 4.6 3.5 - 5.0 mmol/L 05/04/2022 19:01 [facility] Chloride 109 96 - 110 mmol/L 05/04/2022 19:01 [facility] CO2 Total 20(L) 22 - 32 mmol/L 05/04/2022 19:01 [facility] Glucose 103(H) 70 - 100 mg/dL 05/04/2022 19:01 [facility] BUN 17 10 - 26 mg/dL 05/04/2022 19:01 [facility] Creatinine 1.00 0.52 - 1.04 mg/dL 05/04/2022 19:01 [facility] eGFR 70 >60 mL/min/1.7 3m2 05/04/2022 19:01 [facility] Total Protein 6.9 6.3 - 8.2 g/dL 05/04/2022 19:01 [facility] Albumin 4.2 3.4 - 4.9 g/dL 05/04/2022 19:01 [facility] Alkaline Phosphatase 88 38 - 126 U/L 05/04/2022 19:01 [facility] AST 18 15 - 46 U/L 05/04/2022 19:01 [facility] ALT 16 <35 U/L 05/04/2022 19:01 [facility] Bilirubin, Total <0.5 <1.4 mg/dL 05/04/20 19:01 [facility] Calcium 9.6 8.5 - 10.5 mg/dL 05/04/2022 19:01 [facility] Albumin/Globulin Ratio 1.6 1.0 - 2.5 05/04/2022 19:01 [facility] Anion Gap 14 5 - 14 05/04/2022 19:01 [facility] Blood VENOUS BLOOD / Unknown Venipuncture / Unknown 05/04/2022 11:55 EDT 05/04/2022 18:30 EDT Michelle Shannon MD CHEMISTRY & BLOO D GAS ORDERABLES Performing Organization Address City/State/[facility] Co de Phone Number [facility] [address] [place] [address] documented in this encounter Visit Diagnoses Diagnosis Radial tunnel syndrome- Primary Lesion of radial nerve Metabolic acidosis Acidosis Financial difficulties Inadequate material resources documented in this encounter Discontinued Medications Medication Sig Discontinue Reason Start Date End Da te gabapentin (NEURONTIN) 300 mg capsule Take 1 capsule by mouth 3 times daily. Order modification 03/22/2022 05/04/2022 LORazepam (ATIVAN) 1 mg tablet Take 1 Tablet by mouth 2 times daily. Daily Max: 2 mg Reorder 04/01/2022 05/04/2022 documented as of this encounter Care Teams Design Drafter Relationship Specialty Start Date End Date Michelle Shannon MD [address] [place] [phone] PCP - General 09/08/11 documented as of this encounter
--- OUTSIDE RECORDS SUMMARY | 2024-04-28 15:52 | XMS_ITS | Encounter Summary ---
Author Organization [facility] Address [address] [place] [address] Care Team Providers Care Poker Supervisor Name Role Phone Michelle Shannon MD Primary Care Provider + Reason for Visit * Reason Onset Date Comments Medications Refill 03/11/2022 Encounter Details Date Type Department Care Team (Late st Contact Info) Description 03/11/2022 Refill [facility] [address] [place] [phone] Michelle Shannon MD [address] [place] [phone] Medications Refill Social History Tobacco Use [...] times daily. Daily Max: 2 Capsules 56 capsule 03/11/2022 04/21/2022 documented in this encounter Miscellaneous Notes * Telephone Encounter - Dayna Guzman - 03/11/2022 1447 EDT Refill documented in this encounter Plan of Treatment Upcoming Encounters Date Type Department Care Team (Late st Contact Info) Description 06/08/2024 13:30 EDT Office Visit [facility] [address] [facility] [address] [place] [address] Michelle Shannon MD [address] [place] [phone] documented as of this encounter Visit Diagnoses Not on filedocumented in this encounter Discontinued Medications Medication Sig Discontinue Reason Start Date End Da te dextroamphetamine-amphe tamine (ADDERALL XR) 30 mg XR capsule Take 1 capsule by mouth 2 times daily. Daily Max: 2 Capsules Reorder 02/02/2022 03/11/2022 documented as of this encounter Care Teams Poker Supervisor Relationship Specialty Start Date End Date Michelle Shannon MD [address] [place] [phone] PCP - General 09/08/11 documented as of this encounter
--- OUTSIDE RECORDS SUMMARY | 2024-04-28 15:52 | XMS_ITS | Encounter Summary ---
Author Organization [facility] Address [address] [place] [address] Care Team Providers Care Lead Esthetician Name Role Phone Michelle Shannon MD Primary Care Provider + Reason for Visit * Reason Comments Other Encounter Details Date Type Department Care Team (Late st Contact Info) Description 04/03/2022 Refill [facility] [address] [place] [address] Michelle Shannon MD [address] [place] [phone] Other Social History Tobacco Use Types [...] slept in a penitentiary (including now)? No 12/28/2021 Interpersonal Safety Answer [...] CAPSULE BY MOUTH TWICE DAILY 180 capsule 3 04/05/2022 04/25/2022 documented in this encounter Plan of Treatment Upcoming Encounters Date Type Department Care Team (Late st Contact Info) Description 06/08/2024 13:30 EDT Office Visit [facility] [address] [place] [address] Michelle Shannon MD [address] [place] [phone] documented as of this encounter Visit Diagnoses Not on filedocumented in this encounter Discontinued Medications Medication Sig Discontinue Reason Start Date End Da te omeprazole (PRILOSEC) 20 mg capsule Take 1 capsule by mouth 2 times daily. 02/24/2022 04/05/2022 documented as of this encounter Care Teams Lead Esthetician Relationship Specialty Start Date End Date Michelle Shannon MD [address] [place] [phone] PCP - General 09/08/11 documented as of this encounter
--- OUTSIDE RECORDS SUMMARY | 2024-04-28 15:52 | XMS_ITS | Encounter Summary ---
Author Organization [facility] Address [address] [place] [address] Care Team Providers Care Personnel Psychologist Name Role Phone Michelle Shannon MD Primary Care Provider + Encounter Details Date Type Department Care Team (Late st Contact Info) Description 02/24/2022 Orders Only [facility] [address] [place] [address] Michelle Shannon MD [address] [place] [phone] Social History Tobacco Use Types Packs/Day Years [...] slept in a intermediate (including now)? No 12/28/2021 Interpersonal Safety Answer [...] mouth 2 times daily. 60 capsule 2 02/24/2022 04/05/2022 documented in this encounter Plan of Treatment Upcoming Encounters Date Type Department Care Team (Late st Contact Info) Description 06/08/2024 13:30 EDT Office Visit [facility] [address] [facility] [address] [place] [address] Michelle Shannon MD [address] [place] [phone] documented as of this encounter Visit Diagnoses Not on filedocumented in this encounter Care Teams Personnel Psychologist Relationship Specialty Start Date End Date Michelle Shannon MD [address] [place] [phone] PCP - General 09/08/11 documented as of this encounter
--- OUTSIDE RECORDS SUMMARY | 2024-04-28 15:52 | XMS_ITS | Encounter Summary ---
Author Organization [facility] Address [address] [place] [address] Care Team Providers Care Projects Manager Name Role Phone Michelle Shannon MD Primary Care Provider + Reason for Visit * Reason Onset Date Comments Medications Refill 05/25/2022 Encounter Details Date Type Department Care Team (Late st Contact Info) Description 05/25/2022 Refill [facility] [address] [place] [phone] Michelle Shannon MD [address] [place] [phone] Medications Refill Social History Tobacco Use [...] daily. Daily Max: 2 Capsules 56 capsule 05/25/2022 07/06/2022 ARIPiprazole (ABILIFY) 10 mg tablet Take 1 Tablet by mouth at bedtime. 90 Tablet 2 05/25/2022 09/03/2022 documented in this encounter Miscellaneous Notes * Telephone Encounter - Dayna Guzman - 05/25/2022 1418 EDT Refill documented in this encounter Plan of Treatment Upcoming Encounters Date Type Department Care Team (Late st Contact Info) Description 06/08/2024 13:30 EDT Office Visit [facility] [address] [place] [address] [address] [place] [phone] Michelle Shannon MD [address] [place] [address] [phone] documented as of this encounter Visit Diagnoses Not on filedocumented in this encounter Discontinued Medications Medication Sig Discontinue Reason Start Date End Da te ARIPiprazole (ABILIFY) 10 mg tablet Take 1 Tablet by mouth at bedtime. Reorder 12/07/2021 05/25/2022 dextroamphetamine-amphe tamine (ADDERALL XR) 30 mg XR capsule Take 1 capsule by mouth 2 times daily. Daily Max: 2 Capsules Reorder 04/21/2022 05/25/2022 documented as of this encounter Care Teams Projects Manager Relationship Specialty Start Date End Date Michelle Shannon MD [address] [place] [address] [phone] PCP - General 09/08/11 documented as of this encounter
--- OUTSIDE RECORDS SUMMARY | 2024-04-28 15:52 | XMS_ITS | Encounter Summary ---
Author Organization [facility] Address [address] [place] [address] Care Team Providers Care Relay Adjuster Name Role Phone Michelle Shannon MD Primary Care Provider + Reason for Referral * Radiology Services (Routine/Next Available) - Authorization Not Required Specialty Diagnoses / Procedures Referred By Contac t Referred To Contact Radiology Diagnoses Right elbow pain Procedures MR ELBOW WO CONTRAST RIGHT Manuel Dupree MD [address] [place] [address] [facility] Referral ID Status Reason Start Date Expiration Date Visits Requested Visits Authorized [id number] Authorization Not Required 06/09/2022 1 1 Reason for Visit * Radiology Services (Routine/Next Available) - Authorization Not Required Specialty Diagnoses / Procedures Referred By Contac t Referred To Contact Radiology Diagnoses Right elbow pain Procedures MR ELBOW WO CONTRAST RIGHT Manuel Dupree MD [address] [place] [address] [facility] Referral ID Status Reason Start Date Expiration Date Visits Requested Visits Authorized [id number] Authorization Not Required 06/09/2022 1 1 Encounter Details Date Type Department Care Team (Latest Contact Info) Description 07/12/2022 23:59 EDT Hospital Encounter [facility] [address] [place], [place] [phone] Right elbow pain Discharge Disposition: Home or Self Care Social [...] Sexual Orientation Straight 12/07/2023 23 :06 EDT COVID-19 Exposure Response Date Recorded In the last 10 days, have yo u been in contact with someone who was confirmed or suspected to have Coronavirus/COVID-19? No / Unsure 07/08/2022 14:48 EDT documented as of this encounter Medications at Time of Discharge [...] onto the face 60 mL 3 11/19/2020 fluticasone propionate (FLONASE) 50 mcg/actuation nasal spray SHAKE LIQUID AND USE 2 SPRAYS IN EACH NOSTRIL DAILY 3 Bottle 02/06/2021 melatonin 10 mg capsule Take 10 mg by mouth at bedtime. 100 capsule 2 12/07/2021 metroNIDAZOLE (METROGEL) 0.75 % gel Apply topically 2 times daily. acetylcysteine 600 mg capsule 600mg twice daily for 2 weeks then increase to 1200mg twice daily 120 Cap 3 11/19/2020 09/03/2022 adapalene 0.3 % gel Apply a pea sized amount to the whole face 3 times per week. THen increase to nightly as tolerated 45 g 3 11/19/2020 09/03/2022 ARIPiprazole (ABILIFY) 10 mg tablet Take 1 Tablet by mouth at bedtime. 90 Tablet 2 05/25/2022 09/03/2022 cholecalciferol, Vitamin D3, 1,000 unit tablet Take 1 Tablet by mouth daily. 04/25/2023 citalopram (CELEXA) 40 mg tablet Take 1 Tablet by mouth daily. 30 Tablet 2 06/10/2022 09/03/2022 clonazePAM (KLONOPIN) 1 mg tablet TAKE 1 TABLET BY MOUTH DAILY AT BEDTIME. MAX: 1 MG 28 Tablet 06/23/2022 08/02/2022 dextroamphetamine-amph etamine (ADDERALL XR) 30 mg XR capsule Take 1 capsule by mouth 2 times daily. Daily Max: 2 Capsules 56 capsule 07/06/2022 08/10/2022 estradioL (VIVELLE) 0.05 mg/24 hr patch Use one patch twice weekly. 15 Patch 1 07/09/2022 09/03/2022 ferrous gluconate (FERGON) 324 mg (38 mg iron) tablet Take 1 Tablet by mouth daily with breakfast. 100 Tablet 04/05/2022 09/03/2022 gabapentin (NEURONTIN) 300 mg capsule Take 1 capsule by mouth 2 times daily. 60 capsule 2 05/04/2022 09/03/2022 IBUPROFEN (ADVIL ORAL) Take by mouth daily as needed. 05/19/2023 ketoconazole (NIZORAL) 2 % shampoo Apply topically to affected area daily. Scalp and face. leave on 3-5 minutes then rinse off 1 Bottle 11 11/19/2020 09/03/2022 loratadine (CLARITIN) 10 mg tablet Take 1 Tablet by mouth daily. 100 Tablet 1 10/07/2021 01/24/2023 LORazepam (ATIVAN) 1 mg tablet Take 1 Tablet by mouth 2 times daily. Daily Max: 2 mg 30 Tablet 07/06/2022 08/02/2022 meloxicam (MOBIC) 7.5 mg tablet Take 1 Tablet by mouth 2 times daily as needed for Pain. 30 Tablet 1 01/15/2022 02/05/2023 mupirocin (BACTROBAN) 2 % ointment Apply topically to affected area 2 times daily. For 5 days 22 g 3 11/19/2020 10/19/2023 omeprazole (PRILOSEC) 20 mg capsule TAKE 1 CAPSULE BY MOUTH TWICE DAILY 180 capsule 1 06/10/2022 04/25/2023 progesterone (PROMETRIUM) 200 mg capsule Take 1 capsule by mouth at bedtime. 30 capsule 1 07/09/2022 09/03/2022 topiramate (TOPAMAX) 50 mg tablet TAKE 1 AND 1/2 TABLETS BY MOUTH TWICE DAILY 270 Tablet 1 04/01/2022 09/03/2022 tretinoin (RETIN-A) 0.025 % cream Apply topically [...] Info) Description 06/08/2024 13:30 EDT Office Visit [facility] [address] [place] [address] Michelle Shannon MD [address] [place] [phone] documented as of this encounter Procedures Procedure Name Priority Date/Time Associated Diagnosis Comments MR ELBOW WO CONTRAST RIGHT Routine 07/12/2022 11:16 EDT Right elbow pain documented in this encounter Results * MR ELBOW WO [...] this encounter Visit Diagnoses Diagnosis Right elbow pain Pain in joint, upper arm documented in this encounter Care Teams Relay Adjuster Relationship Specialty Start Date End Date Michelle Shannon MD [address] [place] [phone] PCP - General 09/08/11 documented as of this encounter
--- OUTSIDE RECORDS SUMMARY | 2024-04-28 15:52 | XMS_ITS | Encounter Summary ---
Author Organization [facility] Address [address] [place] [address] Care Team Providers Care Advertising Representative Name Role Phone Michelle Shannon MD Primary Care Provider + Reason for Visit * Reason Onset Date Comments Medication Management 03/22/2022 Encounter Details Date Type Department Care Team (Late st Contact Info) Description 03/22/2022 Telephone [facility] [address] [place] [address] Curtis Casillas, dependency program director Management Social History Tobacco Use Types Packs/Day [...] 1 capsule by mouth 3 times daily. 90 capsule 2 03/22/2022 05/04/2022 documented in this encounter Miscellaneous Notes * Telephone Encounter - Curtis Casillas RN - 03/22/2022 1149 EDT Call from [facility] for clarification on gabapentin 300mg capsule sig. It has both TID and BID listed on sig. CURTIS CASILLAS RN documented in this encounter Plan of Treatment Upcoming Encounters Date Type Department Care Team (Late st Contact Info) Description 06/08/2024 13:30 EDT Office Visit [facility] [address] [place] [address] Michelle Sahnnon MD [address] [place] [phone] documented as of this encounter Visit Diagnoses Not on filedocumented in this encounter Discontinued Medications Medication Sig Discontinue Reason Start Date End Da te gabapentin (NEURONTIN) 300 mg capsule Take 1 capsule by mouth 3 times daily. Use bid Reorder 03/19/2022 03/22/2022 documented as of this encounter Care Teams Advertising Representative Relationship Specialty Start Date End Date Michelle Shannon MD [address] [place] [address] [phone] PCP - General 09/08/11 documented as of this encounter
--- OUTSIDE RECORDS SUMMARY | 2024-04-28 15:52 | XMS_ITS | Encounter Summary ---
Author Organization [facility] Address [address] [place] [address] Care Team Providers Care Collections Clerk Name Role Phone Michelle Shannon MD Primary Care Provider + Reason for Referral * PT/OT/ST (See Order Priority) - Closed Specialty Diagnoses / Procedures Referred By Thelma long Referred To Contact Diagnoses Radial tunnel syndrome of right upper extremity Manuel Dupree MD [address] [place] [phone] Referral ID Status Reason Start Date Expiration Date V isits Requested Visits Authorized [id number] Closed Specialty Services Required 07/21/2022 1 1 Question Answer Reason for Request: right distal biceps tendinosis Comments Evaluation and treatment Decrease pain and increase function Encounter Details Date Type Department Care Team (Late st Contact Info) Description 07/21/2022 Orders Only [facility] - [address] [place] [address] Manuel Dupree MD [address] [place] [phone] Radial tunnel syndrome of right upper extremity (Primary Dx) Social History Tobacco Use Types [...] Yes 12/28/2021 Housing Stability Vital Sign Answer Nalod e Recorded In the last 12 months, [...] 14:48 EDT documented as of this encounter Plan of Treatment Upcoming Encounters Date Type Department Care Team (Late st Contact Info) Description 06/08/2024 13:30 EDT Office Visit [facility] [address] [place], [place] [phone] Michelle Shannon MD [address] [place] [phone] Scheduled Referrals Name Type Priority Associated Diagnoses Order Schedule AMB CONS/FOLLOW UP HAND THERAPY Outpatient Referral Routine/Next Available Radial tunnel syndrome of right upper extremity Expected: 07/28/2022 (Approximate), Expires: 07/21/2023 documented as of this encounter Visit Diagnoses Diagnosis Radial tunnel syndrome of right upper extremity- Primary documented in this encounter Care Teams Collections Clerk Relationship Specialty Start Date End Date Michelle Shannon MD [address] [place] [phone] PCP - General 09/08/11 documented as of this encounter
--- OUTSIDE RECORDS SUMMARY | 2024-04-28 15:52 | XMS_ITS | Encounter Summary ---
Author Organization [facility] Address [address] [place] [address] Care Team Providers Care Crm Developer Name Role Phone Michelle Shannon MD Primary Care Provider + Encounter Details Date Type Department Care Team (Late st Contact Info) Description 07/09/2022 Orders Only [facility] [address] [place] [address] Yenifer Rolon, DECK OFFICER [address] [place] [phone] Social History Tobacco Use Types Packs/Day Years [...] 14:48 EDT documented as of this encounter Ordered Prescriptions Prescription Sig Dispensed Refills Start Date End Da te estradioL (VIVELLE) 0.05 mg/24 hr patch Use one patch twice weekly. 15 Patch 1 07/09/2022 09/03/2022 progesterone (PROMETRIUM) 200 mg capsule Take 1 capsule by mouth at bedtime. 30 capsule 1 07/09/2022 09/03/2022 documented in this encounter Progress Notes * Yenifer Rolon APRN - 07/09/2022 0856 EDT e documented in this encounter Plan of Treatment Upcoming Encounters Date Type Department Care Team (Late st Contact Info) Description 06/08/2024 13:30 EDT Office Visit [facility] [address] [place], [place] [phone] Michelle Shannon MD [address] [place] [phone] documented as of this encounter Visit Diagnoses Not on filedocumented in this encounter Care Teams Crm Developer Relationship Specialty Start Date End Date Michelle Shannon MD [address] [place] [phone] PCP - General 09/08/11 documented as of this encounter
--- OUTSIDE RECORDS SUMMARY | 2024-04-28 15:52 | XMS_ITS | Encounter Summary ---
Author Organization [facility] Address [address] [place] [address] Care Team Providers Care Industrial Gas Fitter Name Role Phone Michelle Shannon MD Primary Care Provider + Reason for Visit * Reason Comments Other Encounter Details Date Type Department Care Team (Late st Contact Info) Description 04/23/2022 Refill [facility] [address] [place] [address] Michelle Shannon MD [address] [place] [phone] Other Social History Tobacco Use Types [...] BY MOUTH TWICE DAILY 180 capsule 3 04/25/2022 06/10/2022 documented in this encounter Plan of Treatment Upcoming Encounters Date Type Department Care Team (Late st Contact Info) Description 06/08/2024 13:30 EDT Office Visit [facility] [address] [place] [address] Michelle Shannon MD [address] [place] [phone] documented as of this encounter Visit Diagnoses Not on filedocumented in this encounter Discontinued Medications Medication Sig Discontinue Reason Start Date End Da te omeprazole (PRILOSEC) 20 mg capsule TAKE 1 CAPSULE BY MOUTH TWICE DAILY 04/05/2022 04/25/2022 documented as of this encounter Care Teams Industrial Gas Fitter Relationship Specialty Start Date End Date Michelle Shannon MD [address] [place] [address] [phone] PCP - General 09/08/11 documented as of this encounter
--- OUTSIDE RECORDS SUMMARY | 2024-04-28 15:52 | XMS_ITS | Encounter Summary ---
Author Organization [facility] Address [address] [place] [address] Care Team Providers Care Selling Specialist Name Role Phone Michelle Shannon MD Primary Care Provider + Reason for Visit * Reason Comments Follow-up Encounter Details Date Type Department Care Team (Late st Contact Info) Description 03/30/2022 15:30 EDT Office Visit [facility] - [address] [address] Vasyl Noel PA-C [address] [place] [phone] Radial tunnel syndrome of right upper [...] as of this encounter Progress Notes * Vasyl Noel PA-C - 03/30/2022 1530 EDT PROBLEM: EMG follow-up for right elbow and forearm pain SUBJECTIVE: Jane Blair is a 46 y.o. right hand dominant female who is here today for follow up. She was last seen by myself on 01/26/2022 for complaint of right elbow and forearm pain. Her symptoms began after she fell onto an outstretched right arm in August 2021. I suspected radial tunnel syndrome and a corticosteroid injection was performed into the right forearm at our previous visit. An EMG/NCV was also ordered and this electrodiagnostic study was performed by Dr. Siena Ledezma on 02/18/2022. This EMG found evidence of right radial nerve motor fiber slowing in the proximal forearm consistent with some focal compression along that segment. Normal right radial sensory fiber response was observed. Needle examination of radial innervated muscles did not show any evidence of acute or chronic neurogenic change. At today's encounter Jane reports that her symptoms are generally improved since the corticosteroidinjection was performed a little over 2 months ago. She continues to have some pain with weightbearing on extended arm such as reaching for a gallon of milk or resisted elbow flexion and this pain islocalized to the radial aspect of the forearm. The past medical, family and social history have been reviewed in the patient chart. OBJECTIVE: There were no vitals taken for this visit. On physical exam, the patient is found to be a pleasant and cooperative female. Psych: She is alert and oriented x 3 with normal affect. Constitutional: She is well-developed and in no significant distress. Eyes: Sclerae clear. Resp: Breathing is regular and nonlabored without audible wheezing. Skin: On examination of the right arm the skin is intact. Hem: There is no visible ecchymosis. Msk: Focused extremity examination: Inspection of the patient's right upper extremity, particularlyproximal forearm does not reveal any noticeable swelling or deformity. She is point tender to palpation over the anterior and radial aspect of the proximal forearm. No tenderness over the biceps tendon. No tenderness over the lateral epicondyle. Elbow range of motion is full in both flexion and extension. She has 5 out of 5 strength with resisted wrist flexion and extension. No tenderness with resisted extension of the long finger. She does have pain in her anterior elbow with resisted elbow flexion. Normal hook test is observed over the distal biceps tendon. She has 5 out of 5 strength in the EPL, FPL, and first dorsal interosseous. Neuro-vascularly: Sensation intact in the distribution of the radial, ulnar, and median nerves measured at the right hand with no pallor or cyanosis observed. DIAGNOSTICS: EMG/NCV of the right upper extremity by Dr. Siena Ledezma performed on 02/18/2022 reviewed by myself in the office today. Assessment: ?? 1. Right radial nerve motor fiber slowing in the proximal forearm consistent with some focal compression in the segment - Radial nerve motor fiber slowing to 45 m/s across the proximal forearm. Very mild decrement in extensor indicis CMAP amplitude. - Normal right radial sensory fiber response - Needle examination of radial innervated muscles without evidence of acute or chronic neurogenic change (muscles tested IBAN, EDC, ECR, BR) ASSESSMENT: This is a 46-year-old [id number] female with improving right forearm pain since right radial tunnel corticosteroid injection performed by myself on 01/26/2022. EMG study reviewed in the office today. Results were discussed including mild evidence of compression neuropathy in the proximal forearm. This is consistent with a diagnosis of radial tunnel syndrome. She has improved since her corticosteroid injection was performed and it is my recommendation to tear that we continue with nonoperative treatment. I explained that so long as her symptoms remain improved and possibly improving that no further intervention will be required. I did explain that if her symptoms should worsen that a reevaluation could be considered, possible surgical consult for consideration of PIN release. PLAN: 1. The plan today is to continue with nonoperative management for right forearm radial nerve compression. She will avoid aggravating activities. 2. Follow-up as needed 3. Today all questions were answered, the patient indicates understanding, and agrees with the plan. Dr. Jo was the attending physician available in the clinic today if needed. A consultation was not required. This note was prepared using voice recognition software and the EMR. There may be inadvertent errors and omissions. SOO [facility] 03/30/2022 documented in this encounter Plan of Treatment Upcoming Encounters Date Type Department Care Team (Late st Contact Info) Description 06/08/2024 13:30 EDT Office Visit [facility] [address] [facility] [address] [place] [address] Michelle Shannon MD [address] [place] [phone] documented as of this encounter Visit Diagnoses Diagnosis Radial tunnel syndrome of right upper extremity- Primary documented in this encounter Care Teams Selling Specialist Relationship Specialty Start Date End Date Michelle Shannon MD [address] [place] [address] [phone] PCP - General 09/08/11 documented as of this encounter
--- OUTSIDE RECORDS SUMMARY | 2024-04-28 15:52 | XMS_ITS | Encounter Summary ---
Author Organization [facility] Address [address] [place] [address] Care Team Providers Care Process Camera Operator Name Role Phone Michelle Shannon MD Primary Care Provider + Reason for Visit * Reason Onset Date Comments Medications Refill 05/19/2022 Encounter Details Date Type Department Care Team (Late st Contact Info) Description 05/19/2022 Refill [facility] [address] [place] [address] Michelle Shannon MD [address] [place] [phone] Medications Refill Social History Tobacco Use [...] AT BEDTIME. MAX: 1 MG 28 Tablet 05/19/2022 06/23/2022 documented in this encounter Miscellaneous Notes * Telephone Encounter - Elizabeth Kauffman - 05/19/2022 1337 EDT refill documented in this encounter Plan of Treatment Upcoming Encounters Date Type Department Care Team (Late st Contact Info) Description 06/08/2024 13:30 EDT Office Visit [facility] [address] [facility] [address] [place], [place] [phone] Michelle Shannon MD [address] [place] [phone] documented as of this encounter Visit Diagnoses Not on filedocumented in this encounter Discontinued Medications Medication Sig Discontinue Reason Start Date End Da te clonazePAM (KLONOPIN) 1 mg tablet TAKE 1 TABLET BY MOUTH DAILY AT BEDTIME. MAX: 1 MG Reorder 04/21/2022 05/19/2022 documented as of this encounter Care Teams Process Camera Operator Relationship Specialty Start Date End Date Michelle Shannon MD [address] [place] [phone] PCP - General 09/08/11 documented as of this encounter
--- OUTSIDE RECORDS SUMMARY | 2024-04-28 15:52 | XMS_ITS | Encounter Summary ---
Author Organization [facility] Address [address] [place] [address] Care Team Providers Care Industrial Design Engineer Name Role Phone Michelle Shannon MD Primary Care Provider + Reason for Visit * Office Procedure (Routine) - Receiving Office to Obtain Authorization Specialty Diagnoses / Procedures Referred By Thelma long Referred To Contact Neurology Diagnoses Radicular pain in left arm Procedures EMG/NERVE CONDUCTION STUDY Michelle Shannon MD [address] [place] [phone] [facility] Neurophys [address] [place] [address] Referral ID Status Reason Start Date Expiration Date Visits Requested Visits Authorized [id number] Receiving Office to Obtain Authorization 04/15/2021 1 1 Encounter Details Date Type Department Care Team (Latest Contact Info) Description 04/19/2022 14:20 EDT - 04/19/2022 23:59 EDT Hospital Encounter [facility] Neurophysiology - [facility] [place] [address] [place], [place] [phone] Ramon Botello MD [address] [place] [phone] Right arm pain (Primary Dx) Discharge Disposition: Home or Self Care Social [...] :06 EDT documented as of this encounter Medications [...] by mouth at bedtime. 90 Tablet 2 12/07/2021 05/25/2022 cholecalciferol, Vitamin D3, 1,000 unit tablet Take 1 Tablet by mouth daily. 04/25/2023 citalopram (CELEXA) 40 mg tablet Take 1 Tablet by mouth daily. 30 Tablet 2 03/31/2022 06/10/2022 clonazePAM (KLONOPIN) 1 mg tablet TAKE 1 TABLET BY MOUTH DAILY AT BEDTIME. MAX: 1 MG 28 Tablet 03/22/2022 04/21/2022 dextroamphetamine-amph etamine (ADDERALL XR) 30 mg XR capsule Take 1 capsule by mouth 2 times daily. Daily Max: 2 Capsules 56 capsule 03/11/2022 04/21/2022 ferrous gluconate (FERGON) 324 mg (38 mg iron) tablet Take 1 Tablet by mouth daily with breakfast. 100 Tablet 04/05/2022 09/03/2022 gabapentin (NEURONTIN) 300 mg capsule Take 1 capsule by mouth 3 times daily. 90 capsule 2 03/22/2022 05/04/2022 IBUPROFEN (ADVIL ORAL) Take by mouth daily [...] daily. Daily Max: 2 mg 30 Tablet 04/01/2022 05/04/2022 meloxicam (MOBIC) 7.5 mg tablet Take 1 Tablet by mouth 2 times daily as needed for Pain. 30 Tablet 1 01/15/2022 02/05/2023 mupirocin (BACTROBAN) 2 % ointment Apply topically to affected area 2 times daily. For 5 days 22 g 3 11/19/2020 10/19/2023 omeprazole (PRILOSEC) 20 mg capsule TAKE 1 CAPSULE BY MOUTH TWICE DAILY 180 capsule 3 04/05/2022 04/25/2022 topiramate (TOPAMAX) 50 mg tablet TAKE 1 [...] or Self Care documented in this encounter Progress Notes * Ramon Botello MD - 04/19/2022 1420 EDT Images from the original note were not included. Department of Neurological Sciences [facility] NEUROLOGY ELECTRODIAGNOSTIC MEDICINE CONSULTATION- SUBJECTIVE: Patient is a 46-year-old woman with approximately 6 to 8-month history of pain involving the right arm. The symptoms started after fall. She complains of localized pain around the elbow with some numbness in the right medial forearm distribution along with subjective weakness. Denies any associatedneck pain. Denies any left upper extremity symptoms OBJECTIVE: On examination, bulk, tone and strength in the upper extremities was normal. Patient have localized tenderness, maximum around the right brachial radialis muscle. SUMMARY OF FINDINGS: 1. Right median motor and sensory nerve conduction studies were normal. 2. Right ulnar motor and sensory nerve conduction studies were normal. 3. Bilateral radial motor nerve conduction studies were normal. 4. Right radial and median antebrachial sensory nerve conduction studies were normal. 5. Right lateral antebrachial sensory nerve conduction study was normal. 6. Needle examination of the right upper extremity involving first dorsal interossei, pronator teres, biceps, brachioradialis and deltoid muscle was normal IMPRESSION: This is a normal study. There is no electrodiagnostic evidence of right carpal tunnel syndrome, radial neuropathy ulnar neuropathy, brachial plexopathy , cervical radiculopathy or myopathy. Patient presentation is most suggestive of tendinitis. Physical therapy and anti-inflammatory medication could be considered. Ramon Botello MD Professor of Neurological Sciences ABPN Board Certified Neurology, Clinical Neurophysiology and Neuromuscular Disorders documented in this encounter Plan of Treatment Upcoming Encounters Date Type Department Care Team (Late st Contact Info) Description 06/08/2024 13:30 EDT Office Visit [facility] [address] [facility] [address] [place] [address] Michelle Shannon MD [address] [place] [phone] Scheduled Orders Name Type Priority Associated Diagnoses Orde r Schedule EMG/NERVE CONDUCTION STUDY Procedures Routine Radicular pain in left arm Ordered: 04/15/2021 documented as of this encounter Visit Diagnoses Diagnosis Right arm pain- Primary Pain in limb documented in this encounter Care Teams Industrial Design Engineer Relationship Specialty Start Date End Date Michelle Shannon MD [address] [place] [phone] PCP - General 09/08/11 documented as of this encounter
--- OUTSIDE RECORDS SUMMARY | 2024-04-28 15:52 | XMS_ITS | Encounter Summary ---
Author Organization [facility] Address [address] [place] [address] Care Team Providers Care Staffing Director Name Role Phone Michelle Shannon MD Primary Care Provider + Reason for Visit * Reason Onset Date Comments Medication Management 07/07/2022 Encounter Details Date Type Department Care Team (Late st Contact Info) Description 07/07/2022 Telephone [facility] [address] [place] [address] Michelle Shannon MD [address] [place] [phone] Medication Management Social History Tobacco Use [...] Telephone Encounter - Michelle Shannon MD - 07/07/2022 1836 EDT I left a message for the pharmacy confirming that she should be taking both medications. * Telephone Encounter - Dayna Guzman - 07/07/2022 1443 EDT Pharmacy LM checking to see if pt is taking both clonazepam and lorazepam as they received scripts for both. DAYNA WEBB MA documented in this encounter Plan of Treatment Upcoming Encounters Date Type Department Care Team (Late st Contact Info) Description 06/08/2024 13:30 EDT Office Visit [facility] [address] [facility] [address] [place] [address] Michelle Shannon MD [address] [place] [phone] documented as of this encounter Visit Diagnoses Not on filedocumented in this encounter Care Teams Staffing Director Relationship Specialty Start Date End Date Michelle Shannon MD [address] [place] [phone] PCP - General 09/08/11 documented as of this encounter
--- OUTSIDE RECORDS SUMMARY | 2024-04-28 15:52 | XMS_ITS | Encounter Summary ---
Author Organization [facility] Address [address] [place] [address] Care Team Providers Care Water Jet Operator Name Role Phone Michelle Shannon MD Primary Care Provider + Reason for Visit * Reason Comments Arm Problem right arm * Consult (See Order Priority) - Authorization Not Required Specialty Diagnoses / Procedures Referred By Thelma long Referred To Contact Orthopedic Surgery Diagnoses Radial tunnel syndrome Michelle Shannon MD [address] [place] [phone] Joaquin Jimenez MD [address] [place] [phone] Referral ID Status Reason Start Date Expiration Date Visits Requested Visits Authorized [id number] Authorization Not Required Specialty Services Required 05/04/2022 1 1 Encounter Details Date Type Department Care Team (Late st Contact Info) Description 06/09/2022 10:45 EDT Office Visit [facility] - [address] [address] Manuel Dupree MD [address] [place] [phone] Right elbow pain (Primary Dx) Social [...] as of this encounter Progress Notes * Manuel Dupree MD - 06/09/2022 1047 EDT Chief Complaint Patient presents with ??? Arm Problem right arm HPI: Jane Blair is a 46 y.o. R hand dominant female who presents with a chief complaint of rightarm pain. Patient states that symptoms have been present since August when she fell onto her outstretched right arm. She has had pain over the anterior and anterolateral aspect of her elbow, worse with forearm supination and elbow flexion. She does get some numbness and tingling in the ring and small fingers when she holds her elbow in a position of flexion for prolonged period of time. She hasbeen taking Neurontin which she does not feel helps. She was given a cortisone injection for presumed radial tunnel which she states helped a little bit over time. She does not feel that the injection helped her immediately although I do not see documentation of a specific assessment of her immediate response to the injection or whether there was a confirmatory block of the PIN. PMH: Documented and reviewed Medications: Documented and reviewed Social history: Documented and reviewed Surgical history: Documented and reviewed Social history: Documented and reviewed Family history: Documented and reviewed Allergy: No Known Allergies Review of Systems: Please see patient intake form for details. Physical Exam: Patient is awake, alert oriented x3 and appears comfortable. Examination of the right upper extremity demonstrates no warmth swelling or erythema. There is no atrophy. She has full motion of her elbow wrist and hand. Distal biceps tendon is palpable in the antecubital fossa. She has pain with elbow flexion and forearm supination. She has tenderness along the course of the distal biceps tendon. She is nontender over the radial wrist extensor origin at the lateral epicondyle or along the dorsal forearm in the region of the radial tunnel. She has no pain with resisted wrist extension and minimal pain with resisted long finger extension which she localizes anteriorly. She has minimal pain with resisted forearm supination with the elbow extended. She is neurovascular intact to motor and sensory testing. Thumb and fingers are warm and well-perfused. She has negative provocativetesting of the ulnar nerve at the elbow or elsewhere in the periphery. Electrodiagnostic studies were reviewed. EMGs performed 02/[address] Ledezma 1. Right radial nerve motor fiber slowing in the proximal forearmconsistent with some focal compression in the segment - Radial nerve motor fiber slowing to 45 m/s across the proximal forearm. Very mild decrement in extensor indicis CMAP amplitude. - Normal right radial sensory fiber response - Needle examination of radial innervated muscles without evidence of acute or chronic neurogenic change (muscles tested IBAN, EDC, ECR, BR) ?? 2. Possible mild ulnar neuropathy at the right elbow. Clinical exam with positive Tinel's sign, clinical history with intermittent numbness and tingling to digits 4 and 5. Nerve conduction studies WNL. -Motor and sensory responses WNL. - Needle examination of ulnar innervated muscles not done at this time due to minimal symptoms and this was not the purpose for the referral. - Recommend monitor clinically. Additional EMGs were performed by Dr. Botello from neurology on April 19: This is a normal study. ?? There is no electrodiagnostic evidence of right carpal tunnel syndrome, radial neuropathy ulnar neuropathy, brachial plexopathy , cervical radiculopathy or myopathy. Patient presentation is most suggestive of tendinitis. Physical therapy and anti-inflammatory medication could be considered. ?? X-rays were reviewed demonstrating no underlying abnormalities. Plan: Jane has right forearm pain. She may have radial tunnel although her exam today is more suggestive of distal biceps pathology. At this point I recommend we obtain an MRI to evaluate this further. I do not see any compelling evidence of peripheral nerve compression warranting surgical intervention though she certainly may have some underlying mild ulnar neuropathy as well. Follow-up after MRI and we will discuss further treatment at that time as warranted by the findings of the above. I spent a total of 30 minutes on the date of this encounter meeting with the patient and reviewing documentation/coordinating care as described in the above note. Manuel Dupree MD 06/09/2022 11:02 documented in this encounter Plan of Treatment Upcoming Encounters Date Type Department Care Team (Late st Contact Info) Description 06/08/2024 13:30 EDT Office Visit [facility] [address] [place] [address] Michelle Shannon MD [address] [place] [phone] documented as of this encounter Visit Diagnoses Diagnosis Right elbow pain- Primary Pain in joint, upper arm documented in this encounter Care Teams Water Jet Operator Relationship Specialty Start Date End Date Michelle Shannon MD [address] [place] [phone] PCP - General 09/08/11 documented as of this encounter
--- OUTSIDE RECORDS SUMMARY | 2024-04-28 15:52 | XMS_ITS | Encounter Summary ---
Author Organization [facility] Address [address] [place] [address] Care Team Providers Care Automation Engineering Technician Name Role Phone Michelle Shannon MD Primary Care Provider + Reason for Visit * Reason Onset Date Comments Medications Refill 07/06/2022 Encounter Details Date Type Department Care Team (Late st Contact Info) Description 07/06/2022 Refill [facility] [address] [place] [phone] Michelle Shannon MD [address] [place] [phone] Medications Refill Social History Tobacco Use [...] Max: 2 mg 30 Tablet 07/06/2022 08/02/2022 dextroamphetamine-amphe tamine (ADDERALL XR) 30 mg XR capsule Take 1 capsule by mouth 2 times daily. Daily Max: 2 Capsules 56 capsule 07/06/2022 08/10/2022 documented in this encounter Miscellaneous Notes * Telephone Encounter - Elizabeth Kauffman - 07/06/2022 0908 EDT refill documented in this encounter Plan of Treatment Upcoming Encounters Date Type Department Care Team (Late st Contact Info) Description 06/08/2024 13:30 EDT Office Visit [facility], [address] [place] [phone] Michelle Shannon MD [address] [place] [phone] documented as of this encounter Visit Diagnoses Not on filedocumented in this encounter Discontinued Medications Medication Sig Discontinue Reason Start Date End Da te dextroamphetamine-amphe tamine (ADDERALL XR) 30 mg XR capsule Take 1 capsule by mouth 2 times daily. Daily Max: 2 Capsules Reorder 05/25/2022 07/06/2022 LORazepam (ATIVAN) 1 mg tablet Take 1 Tablet by mouth 2 times daily. Daily Max: 2 mg Reorder 05/05/2022 07/06/2022 documented as of this encounter Care Teams Automation Engineering Technician Relationship Specialty Start Date End Date Michelle Shannon MD [address] [place] [phone] PCP - General 09/08/11 documented as of this encounter
--- OUTSIDE RECORDS SUMMARY | 2024-04-28 15:52 | XMS_ITS | Encounter Summary ---
Author Organization [facility] Address [address] [place] [address] Care Team Providers Care Sample Finisher Name Role Phone Michelle Shannon MD Primary Care Provider + Reason for Visit * Reason Comments Arm Pain right * Referral (Routine/Next Available) - Authorization Not Required Specialty Diagnoses / Procedures Referred By Thelma long Referred To Contact Physical Medicine and Rehab Diagnoses Radial tunnel syndrome of right upper extremity Procedures EMG/NERVE CONDUCTION STUDY Vaysl Noel PA-C [address] [place] [address] [facility] [address] [place] [address] [place] [address] Referral ID Status Reason Start Date Expiration Date Visits Requested Visits Authorized [id number] Authorization Not Required 01/26/2022 1 1 Encounter Details Date Type Department Care Team (Latest Contact Info) Description 02/18/2022 14:30 EDT Procedure visit [facility] Physical Medicine & Rehabilitation - [facility] [address] [place] [address] Siena Ledezma MD [address] [place] [phone] Right arm pain (Primary Dx); Radial tunnel syndrome of right upper extremity Social History Tobacco Use Types Packs/Day Years [...] you? Never 12/28/2021 How often does anyone, breealex elissa family, insult, scream, curse or threaten to hurt you? Frequently 12/28/2021 Sex and Gender Information Value Date Recorded Sex Assigned at Not on file Gender Identity Female 11/10/2020 8:41 EST Sexual Orientation Straight 12/07/2023 23 :06 EDT documented as of this encounter Progress Notes * Siena Ledezma MD - 02/18/2022 1430 EDT Images from the original note were not included. Rehabilitation Medicine Evaluation/ Electrodiagnostic Studies Chief Complaint Patient presents with ??? Arm Pain right Subjective: Jane Blair is being seen at the request of Magnolia Mejia* for physiatric consultation and consideration of electrodiagnostic evaluation of right elbow and forearm pain. Jane Blair has completed the pt. Intake questionnaire, pain diagram, rating scale and qualifiers. This is reviewed and placed in the chart. Prior evaluations are reviewed in the chart. There is a 46-year-old gtyfl-taxf-xateksmv woman who has been having arm pain since a fall on the ice in August in which she landed with her right arm outstretched. She became aware of this particular pain about a month after the fall. Trying to turn her forearm and hand to palm up is particularly painful. As well as flexing her elbow against resistance. She notes numbness, tingling, shooting pains, aching, cramping, stiffness and a sense of weakness in the arm. Regular use of the arm is problematic. She cannot lift a gallon of milk. Problems that she has been having include if she sleeps on her back she gets some numbness in digits 4 and 5 on the left. If she sleeps on her right side her right arm will get numb. If she sleeps onher left side her left arm will get numb. Denies numbness or tingling or pain in her feet. She has had no neck injuries. No change in gait pattern, no loss of bowel or bladder control. She was evaluated by SOO Edwards on 01/26/2022 and diagnosed with a radial tunnel syndrome and concern for entrapment of the posterior interosseous nerve. She received a injection to her right radial tunnel with methylprednisolone and lidocaine on 01/26/2022. She was then referred on for this evaluation. She met with her primary care physician in follow-up on 02/02/2022 and was reporting 25% improvementof her pain when she is turning her wrist and when she is sleeping but still significant pain triggered by pronation, supination, biceps use. She does state today that she has less pain while sleeping since the injection. Dr. Shannon notes that she had been having bilateral radicular pain in both arms that began in March2021 treated with gabapentin which seem to be very helpful. She was not sure whether the current elbow symptoms were related. Dr. Arguello referred Jane for left upper extremity electrodiagnostic testing by the Neurology service on 04/15/2021 for concerns of radiating pain in the left upper extremityin the C8-T1 distribution and question of cervical impingement versus ulnar neuropathy at the elbow. That exam is scheduled 04/19/2022. Past Medical History: Diagnosis Date ??? Allergic [...] infarction ??? Vasovagal syncope last episode 04/2020 PSH/ SH / FAM hx were reviewed in the questionnaire and in the EHR. Current Outpatient Medications: ??? acetylcysteine 600 mg capsule, 600mg twice daily for 2 weeks then increase to 1200mg twice daily, Disp: 120 Cap, Rfl: 3 ??? adapalene 0.3 % gel, Apply a pea sized amount to the whole face 3 times per week. THen increaseto nightly as tolerated, Disp: 45 g, Rfl: 3 ??? albuterol 90 mcg/actuation inhaler, Inhale 1-2 Puffs as directed every 6 hours as needed (shortness of breath). Or 15-30 minutes prior to exercise, Disp: 1 Inhaler, Rfl: 0 ??? ARIPiprazole (ABILIFY) 10 mg tablet, Take 1 Tablet by mouth at bedtime., Disp: 90 Tablet, Rfl: 2 ??? qqtrwtj-jerbjhzeoedzs-nmirgtcd (EXCEDRIN MIGRAINE) 250-250-65 mg per tablet, Take 1 Tab by mouth every 6 hours as needed. Indications: MIGRAINE, Disp: , Rfl: ??? betamethasone dipropionate 0.05 % lotion, Apply topically 2 times daily. Twice daily as needed for itch. Do not let it drip onto the face, Disp: 60 mL, Rfl: 3 ??? cholecalciferol, Vitamin D3, 1,000 unit tablet, Take 1,000 Units by mouth daily., Disp: , Rfl: ??? citalopram (CELEXA) 20 mg tablet, Take 20 mg by mouth daily., Disp: , Rfl: ??? clonazePAM (KLONOPIN) 1 mg tablet, TAKE 1 TABLET BY MOUTH DAILY AT BEDTIME. MAX: 1 MG, Disp: 28Tablet, Rfl: 0 ??? dextroamphetamine-amphetamine (ADDERALL XR) 30 mg XR capsule, Take 1 capsule by mouth 2 times daily. Daily Max: 2 Capsules, Disp: 56 capsule, Rfl: 0 ??? DULoxetine (CYMBALTA) 60 mg capsule, TAKE 1 CAPSULE BY MOUTH DAILY (Patient not taking: Reported on 12/28/2021), Disp: 90 capsule, Rfl: 1 ??? ferrous gluconate (FERGON) 324 mg (38 mg iron) tablet, Take 1 Tablet by mouth daily with breakfast., Disp: 100 Tablet, Rfl: 0 ??? fluticasone propionate (FLONASE) 50 mcg/actuation nasal spray, SHAKE LIQUID AND USE 2 SPRAYS INEACH NOSTRIL DAILY, Disp: 3 Bottle, Rfl: 0 ??? gabapentin (NEURONTIN) 300 mg capsule, Take 1 capsule by mouth 3 times daily. Use bid, Disp: 90capsule, Rfl: 2 ??? IBUPROFEN (ADVIL ORAL), Take by mouth daily as needed. , Disp: , Rfl: ??? ketoconazole (NIZORAL) 2 % shampoo, Apply topically to affected area daily. Scalp and face. leave on 3-5 minutes then rinse off, Disp: 1 Bottle, Rfl: 11 ??? loratadine (CLARITIN) 10 mg tablet, Take 1 Tablet by mouth daily., Disp: 100 Tablet, Rfl: 1 ??? LORazepam (ATIVAN) 1 mg tablet, Take 1 Tablet by mouth 2 times daily. Daily Max: 2 mg, Disp: 60Tablet, Rfl: 0 ??? melatonin 10 mg capsule, Take 10 mg by mouth at bedtime., Disp: 100 capsule, Rfl: 2 ??? meloxicam (MOBIC) 7.5 mg tablet, Take 1 Tablet by mouth 2 times daily as needed for Pain., Disp: 30 Tablet, Rfl: 1 ??? metroNIDAZOLE (METROGEL) 0.75 % gel, Apply topically 2 times daily., Disp: , Rfl: ??? mupirocin (BACTROBAN) 2 % ointment, Apply topically to affected area 2 times daily. For 5 days,Disp: 22 g, Rfl: 3 ??? topiramate (TOPAMAX) 50 mg tablet, TAKE 1 AND 1/2 TABLETS BY MOUTH TWICE DAILY, Disp: 270 Tablet, Rfl: 1 ??? tretinoin (RETIN-A) 0.025 % cream, Apply topically to affected area at bedtime. Stat twice weekly, pea sized amount to the whole face., Disp: 45 g, Rfl: 6 Objective: Estimated body mass index is 33.64 kg/m?? as calculated from the following: Height as of 11/17/20: 162.6 cm (64). Weight as of 09/28/21: 88.9 kg (196 lb). EXAM: And fully cooperative with all aspects of exam and procedure Reflexes 2+ throughout the upper extremities except 1+ at the right triceps Pain triggered in the right upper extremity mostly in the radial nerve distribution with resisted elbow flexion by the brachial radialis and resisted supination. Upper extremity muscle testing with only limitations to the right extensor indicis 4/5. BUE muscles tested: deltoid, shoulder ER/FF, EF,EE, WF, WE, APB, ADQ, FDI, EIP, FE, FPL, FDP 2, FDP5. Positive Tinel of ulnar nerve at the right elbow Appropriate to proceed with electrodiagnostic testing. Pt. with complex presentation and dx not determined just based on physical exam. Pt. required a full H&P to direct electrodiagnostic testing. EMG/NCV: see data sheets/waveforms at end of note Assessment: 1. Right radial nerve motor fiber slowing [...] change (muscles tested IBAN, EDC, ECR, BR) 2. Possible mild ulnar neuropathy at the [...] for the referral. - Recommend monitor clinically. All testing results were reviewed and discussed with the patient. Questions answered fully. Patientis aware that final review and recommendations of ongoing treatment based on this testing will be reviewed by their referring physician. Plan: Future Appointments Date Time Provider Department Center 03/17/2022 15:00 Michelle Shannon MD [facility] None 04/19/2022 14:20 Ramon Botello MD Pat5 [facility] None Siena Ledezma MD [place] [employer] Physical Medicine and Rehabilitation [place] [employer] Electrodiagnostic Medicine Portions of this document have been prepared with speech recognition software or keyboard data support analyst techniques. Minor irregularities or keyboarding misprints may be present. I spent a total of 30 minutes on the date of this encounter meeting with the patient and reviewing documentation/coordinating care as described in the above note. This was separate from any procedures performed at the time of the visit. Electrodiagnostic Studies: Test Date: 02/18/2022 Patient: Jane Blair : 1975 Physician: Sex: Female Height: cm Ref Phys: ID#: [id number] Weight: lbs. Can Piler: Nerve Conduction Studies Anti Sensory Summary Table Stim Site NR Peak (ms) Norm Peak (ms) P-T Amp (??V) Norm P-T Amp Site1 Site2 Delta-P (ms) Dist (cm)Jeff (m/s) Norm Jeff (m/s) Right Ulnar Anti Sensory (5th Digit) 32.4 ??C Wrist 2.8 <3.7 57.6 >10 Wrist 5th Digit 2.8 14.0 50 Motor Summary Table Stim Site NR Onset (ms) Norm Onset (ms) O-P Amp (mV) Norm O-P Amp Site1 Site2 Delta-0 (ms) Dist (cm) Jeff (m/s) Norm Jeff (m/s) Right Radial Motor (Ext Ind Prop) 32.3 ??C 8cm 2.0 <2.5 5.7 >1.7 Up Arm 8cm 2.2 10.0 *45 >50 Up Arm 4.2 4.6 Axilla Up Arm 1.3 7.0 54 Axilla 5.5 4.5 Right Ulnar Motor (Abd Dig Minimi) 32.8 ??C Wrist 2.4 <4.2 10.0 >2.5 B Elbow Wrist 3.2 18.0 56 >50 B Elbow 5.6 11.1 A Elbow B Elbow 1.5 10.0 67 >50 A Elbow 7.1 10.6 Comparison Summary Table Stim Site NR Peak (ms) Norm Peak (ms) P-T Amp (??V) Site1 Site2 Delta-P (ms) Norm Delta (ms) Right Median/Radial Dig I Comparison (Digit 1 - 10cm) 31.6 ??C Median 2.4 <2.9 27.0 Median Radial 0.1 Radial 2.5 <2.8 24.6 EMG Side Muscle Nerve Root Ins Act Fibs Psw Amp Dur Poly Recrt Int Pat Comment Right Ext Indicis Radial (Post Int) C7-8 Nml Nml Nml Nml Nml 0 Nml Nml Right BrachioRad Radial C5-6 Nml Nml Nml Nml Nml 0 Nml Nml Right ExtCarRadLong Radial C6-7 Nml Nml Nml Nml Nml 0 Nml Nml Right Ext Digitorum Radial (Post Int) C7-8 Nml Nml Nml Nml Nml 0 Nml Nml Waveforms: NCV & EMG Findings: Evaluation of the Right radial motor nerve showed decreased conduction velocity (Up Arm-8cm, 45 m/s). All remaining nerves (as indicated in the following tables) were within normal limits. EMG: Needle examination of selected radially innervated muscles was all within normal limits. See table above for muscles tested. documented in this encounter Plan of Treatment Upcoming Encounters Date Type Department Care Team (Late st Contact Info) Description 06/08/2024 13:30 EDT Office Visit [facility], [address] [facility] [address] [place] [address] Michelle Shannon MD [address] [place] [phone] documented as of this encounter Results * POC US PHYSIATRY EXTREMITY LIMITED (02/18/2022 14:41 EDT) Narrative [facility] POINT OF CARE - 02/18/2022 14:41 EDT This is a non-reportable exam. Siena Ledezma MD IMG US POC ORDERABLE S [facility] POINT OF CARE documented in this encounter Visit Diagnoses Diagnosis Right arm pain- Primary Pain in limb Radial tunnel syndrome of right upper extremity Right arm pain Pain in limb documented in this encounter Care Teams Sample Finisher Relationship Specialty Start Date End Date Michelle Shannon MD [address] [place] [address] [phone] PCP - General 09/08/11 documented as of this encounter
--- OUTSIDE RECORDS SUMMARY | 2024-04-28 15:52 | XMS_ITS | Encounter Summary ---
Author Organization [facility] Address [address] [place] [address] Care Team Providers Care Vehicle Upholsterer Name Role Phone Michelle Shannon MD Primary Care Provider + Reason for Visit * Reason Onset Date Comments Medications Refill 03/31/2022 Encounter Details Date Type Department Care Team (Late st Contact Info) Description 03/31/2022 Refill [facility] [address] [place] [phone] Michelle Shannon MD [address] [place] [phone] Medications Refill Social History Tobacco Use [...] slept in a snf (including now)? No 12/28/2021 Interpersonal Safety Answer [...] Max: 2 mg 30 Tablet 04/01/2022 05/04/2022 topiramate (TOPAMAX) 50 mg tablet TAKE 1 AND 1/2 TABLETS BY MOUTH TWICE DAILY 270 Tablet 1 04/01/2022 09/03/2022 documented in this encounter Miscellaneous Notes * Telephone Encounter - Dayna Guzman - 03/31/2022 1407 EDT Refill documented in this encounter Plan of Treatment Upcoming Encounters Date Type Department Care Team (Late st Contact Info) Description 06/08/2024 13:30 EDT Office Visit [facility], [address] [place] [phone] Michelle Shannon MD [address] [place] [address] [phone] documented as of this encounter Visit Diagnoses Not on filedocumented in this encounter Discontinued Medications Medication Sig Discontinue Reason Start Date End Da te topiramate (TOPAMAX) 50 mg tablet TAKE 1 AND 1/2 TABLETS BY MOUTH TWICE DAILY Reorder 12/07/2021 03/31/2022 LORazepam (ATIVAN) 1 mg tablet Take 1 Tablet by mouth 2 times daily. Daily Max: 2 mg Reorder 06/18/2021 03/31/2022 documented as of this encounter Care Teams Vehicle Upholsterer Relationship Specialty Start Date End Date Michelle Shannon MD [address] [place] [address] [phone] PCP - General 09/08/11 documented as of this encounter
--- OUTSIDE RECORDS SUMMARY | 2024-04-28 15:52 | XMS_ITS | Encounter Summary ---
Author Organization [facility] Address [address] [place] [address] Care Team Providers Care Repair Coil Winder Name Role Phone Michelle Shannon MD Primary Care Provider + Reason for Visit * Reason Onset Date Comments Medication Management 02/16/2022 Encounter Details Date Type Department Care Team (Late st Contact Info) Description 02/16/2022 Telephone [facility] [address] [place] [phone] Michelle Shannon MD [address] [place] [phone] Medication Management Social History Tobacco Use [...] * Telephone Encounter - Brianna Parker - 02/24/2022 1141 EDT Was the omeprazole ever called in? Pt called and said the pharmacy doesn't have it, and I don't seeit in her chart. If it wasn't called in, please send the script to her usual pharmacy in [place] * Telephone Encounter - Hang Kauffman - 02/17/2022 0833 EDT LM requesting pt call back. HANG KAUFFMAN MA * Addendum Note - Michelle Shannon MD - 02/16/2022 2157 EDTAddended by: MICHELLE SHANNON on: 02/16/2022 21:57 Modules accepted: Orders * Telephone Encounter - Hang Kauffman - 02/16/2022 1548 EDT Pt requesting prescription for pantoprazole 40mg [address] [facility] HANG KAUFFMAN MA documented in this encounter Plan of Treatment Upcoming Encounters Date Type Department Care Team (Late st Contact Info) Description 06/08/2024 13:30 EDT Office Visit [facility] [address] [place], [place] [phone] Michelle Shannon MD [address] [place] [phone] documented as of this encounter Visit Diagnoses Not on filedocumented in this encounter Discontinued Medications Medication Sig Discontinue Reason Start Date End Da te OMEPRAZOLE ORAL Take 40 mL by mouth 2 times daily. 02/16/2022 documented as of this encounter Care Teams Repair Coil Winder Relationship Specialty Start Date End Date Michelle Shannon MD [address] [place] [phone] PCP - General 09/08/11 documented as of this encounter
--- OUTSIDE RECORDS SUMMARY | 2024-04-28 15:52 | XMS_ITS | Encounter Summary ---
Author Organization [facility] Address [address] [place] [address] Care Team Providers Care Director Water And Waste Services Name Role Phone Michelle Shannon MD Primary Care Provider + Reason for Visit * Reason Onset Date Comments Medications Refill 02/24/2022 Encounter Details Date Type Department Care Team (Late st Contact Info) Description 02/24/2022 Refill [facility] [address] [place] [phone] Michelle Shannon MD [address] [place] [phone] Medications Refill Social History Tobacco Use [...] in a senior living (including now)? No 12/28/2021 Interpersonal Safety Answer [...] Info) Description 06/08/2024 13:30 EDT Office Visit [facility] [address] [facility] [address] [place], [place] [phone] Michelle Shannon MD [address] [place] [phone] documented as of this encounter Visit Diagnoses Not on filedocumented in this encounter Care Teams Director Water And Waste Services Relationship Specialty Start Date End Date Michelle Shannon MD [address] [place] [phone] PCP - General 09/08/11 documented as of this encounter
--- OUTSIDE RECORDS SUMMARY | 2024-04-28 15:52 | XMS_ITS | Encounter Summary ---
Author Organization [facility] Address [address] [place] [address] Care Team Providers Care Supply Tech Name Role Phone Michelle Shannon MD Primary Care Provider + Reason for Visit * Reason Onset Date Comments Prior Auth, Medication 07/14/2022 Encounter Details Date Type Department Care Team (Late st Contact Info) Description 07/14/2022 Telephone [facility] [address] [place] [address] Michelle Shannon MD [address] [place] [phone] Prior Auth, Medication Social History Tobacco [...] 14:48 EDT documented as of this encounter Miscellaneous Notes * Telephone Encounter - Yenifer Rolon APRN - 07/14/2022 1302 EDT If you could try to appeal this that would be great and if it doesn't work out then we can suggest she reach out to her MARINE ENGINE MACHINIST to see what they suggest. I would also make sure she knows she should not be using the patch without this medication, she has to use both together. Thanks * Telephone Encounter - Yenifer Rolon APRN - 07/14/2022 1046 EDT Michelle can you help with this one. What would you suggest. Thanks * Telephone Encounter - Dayna Guzman - 07/14/2022 1035 EDT PA for pt's progesterone was denied bc medication is not on plan's formulary. Covered alternative include Medroxyprogesterone Acetate and Norethindrone Acetate. DAYNA WEBB MA documented in this encounter Plan of Treatment Upcoming Encounters Date Type Department Care Team (Late st Contact Info) Description 06/08/2024 13:30 EDT Office Visit [facility] [address] [facility] [address] [place], [place] [phone] Michelle Shannon MD [address] [place] [phone] documented as of this encounter Visit Diagnoses Not on filedocumented in this encounter Care Teams Supply Tech Relationship Specialty Start Date End Date Michelle Shannon MD [address] [place] [phone] PCP - General 09/08/11 documented as of this encounter
--- OUTSIDE RECORDS SUMMARY | 2024-04-28 15:52 | XMS_ITS | Encounter Summary ---
Author Organization [facility] Address [address] [place] [address] Care Team Providers Care Barrow Worker Helper Name Role Phone Michelle Shannon MD Primary Care Provider + Encounter Details Date Type Department Care Team (Latest Contact Info) Description 07/08/2022 Travel Social History Tobacco Use Types Packs/Day Years [...] slept in a retirement (including now)? No 12/28/2021 Interpersonal Safety Answer [...] Info) Description 06/08/2024 13:30 EDT Office Visit [facility] [address] [facility] [address] [place], [place] [phone] Michelle Shannon MD [address] [place] [phone] documented as of this encounter Visit Diagnoses Not on filedocumented in this encounter Care Teams Barrow Worker Helper Relationship Specialty Start Date End Date Michelle Shannon MD [address] [place] [phone] PCP - General 09/08/11 documented as of this encounter
--- OUTSIDE RECORDS SUMMARY | 2024-04-28 15:52 | XMS_ITS | Encounter Summary ---
Author Organization [facility] Address [address] [place] [address] Care Team Providers Care Meat Boner Name Role Phone Michelle Shannon MD Primary Care Provider + Reason for Visit * Reason Onset Date Comments Medication Management 07/05/2022 Hot flashe s Encounter Details Date Type Department Care Team (Late st Contact Info) Description 07/05/2022 Telephone [facility] [address] [place] [address] Michelle Shannon MD [address] [place] [phone] Medication Management (Hot flashes) Social History Tobacco Use Types Packs/Day Years [...] slept in a jail (including now)? No 12/28/2021 Interpersonal Safety Answer [...] * Telephone Encounter - Dayna Guzman - 07/05/2022 1155 EDT Pt LM stating she has been having a lot of hot flashes recently. Wondering if there is anything can prescribe to help with menopause symptoms. DAYNA WEBB MA documented in this encounter Plan of Treatment Upcoming Encounters Date Type Department Care Team (Late st Contact Info) Description 06/08/2024 13:30 EDT Office Visit [facility], [address] [facility] [address] [place] [phone] Michelle Shannon MD [address] [place] [phone] documented as of this encounter Visit Diagnoses Not on filedocumented in this encounter Care Teams Meat Boner Relationship Specialty Start Date End Date Michelle Shannon MD [address] [place] [phone] PCP - General 09/08/11 documented as of this encounter
--- OUTSIDE RECORDS SUMMARY | 2024-04-28 15:52 | XMS_ITS | Encounter Summary ---
Author Organization [facility] Address [address] [place] [address] Care Team Providers Care Material Control Associate Name Role Phone Michelle Shannon MD Primary Care Provider + Reason for Visit * Reason Onset Date Comments Medications Refill 04/03/2022 Encounter Details Date Type Department Care Team (Late st Contact Info) Description 04/03/2022 Refill [facility] [address] [place] [address] [phone] Michelle Shannon MD [address] [place] [phone] Medications Refill Social History Tobacco Use [...] Dispensed Refills Start Date End Da te ferrous gluconate (FERGON) 324 mg (38 mg iron) tablet Take 1 Tablet by mouth daily with breakfast. 100 Tablet 04/05/2022 09/03/2022 documented in this encounter Miscellaneous Notes * Telephone Encounter - Yenifer Rolon APRN - 04/05/2022 0900 EDTFrom: Jane Blair To: Office of Michelle Shannon MD Sent: 04/03/2022 19:12 EDT Subject: Medication Renewal Request Refills have been requested for the following medications: ferrous gluconate (FERGON) 324 mg (38 mg iron) tablet [Michelle Shannon MD] Preferred pharmacy: [facility] - [address] documented in this encounter Plan of Treatment Upcoming Encounters Date Type Department Care Team (Late st Contact Info) Description 06/08/2024 13:30 EDT Office Visit [facility] [address] [place] [address] Michelle Shannon MD [address] [place] [phone] documented as of this encounter Visit Diagnoses Not on filedocumented in this encounter Discontinued Medications Medication Sig Discontinue Reason Start Date End Da te ferrous gluconate (FERGON) 324 mg (38 mg iron) tablet Take 1 Tablet by mouth daily with breakfast. Reorder 02/10/2022 04/03/2022 documented as of this encounter Care Teams Material Control Associate Relationship Specialty Start Date End Date Michelle Shannon MD [address] [place] [phone] PCP - General 09/08/11 documented as of this encounter
--- OUTSIDE RECORDS SUMMARY | 2024-04-28 15:52 | XMS_ITS | Encounter Summary ---
Author Organization [facility] Address [address] [place] [address] Care Team Providers Care Building Guard Deputy Sheriff Name Role Phone Michelle Shannon MD Primary Care Provider + Reason for Visit * Reason Comments Sweats Encounter Details Date Type Department Care Team (Late st Contact Info) Description 07/07/2022 10:00 EDT Telemedicine [facility] [address] [place], [place] [phone] Yenifer Rolon, EXPANDED DUTY DENTAL ASSISTANT [address] [place] [phone] Hot flashes (Primary Dx) Social History Tobacco Use Types [...] Never 12/28/2021 How often does anyone, myron elissa family, insult, scream, curse or threaten to hurt you? Frequently 12/28/2021 Sex and Gender Information Value Date Recorded Sex Assigned at Not on file Gender Identity Female 11/10/2020 8:41 EST Sexual Orientation Straight 12/07/2023 23 :06 EDT documented as of this encounter Progress Notes * Yenifer Rolon APRN - 07/07/2022 1000 EDT The concept of ???Telemedicine?? has [...] Jane Blair is an 47 y.o. adult. No chief complaint on file. TELEMEDICINE VIDEO VISIT Today's visit was provided through telemedicine video conferencing: The location of the patient : Home The location of the provider: Office The following staff and their role did participate in today's encounter visit: Yenifer Rolon APRN FRANCES Lara presents via [email or web address] to discuss hot flashes. She reports for the last several months she has been having unbearable hot flashes. She reports 5-10 episodes a daily, can occur day or night. She feels sudden heat in her chest and face and then will break out into a sweat. Her last menstrual cyclewas over one year ago. She is interested in estrogen replacement. She is taking citalopram and gabapentin. Her history includes maternal grandmother and aunt with breast cancer. Patient Active Problem List Diagnosis ??? Narcolepsy [...] to Visit Medication Sig Dispense Refill ??? acetylcysteine 600 mg capsule 600mg twice daily for 2 weeks then increase to 1200mg twice [id number] Cap 3 ??? adapalene 0.3 % gel Apply a pea sized amount to the whole face 3 times per week. THen increase to nightly as tolerated 45 g 3 ??? albuterol 90 mcg/actuation inhaler Inhale 1-2 Puffs as directed every 6 hours as needed (shortness of breath). Or 15-30 minutes prior to exercise 1 Inhaler 0 ??? ARIPiprazole (ABILIFY) 10 mg tablet Take 1 Tablet by mouth at bedtime. 90 Tablet 2 ??? epeucrb-xewpocvemvcgj-wfrcoidz (EXCEDRIN MIGRAINE) 250-250-65 mg per tablet Take 1 Tab by mouthevery 6 hours as needed. Indications: MIGRAINE ??? betamethasone dipropionate 0.05 % lotion Apply topically 2 times daily. Twice daily as needed for itch. Do not let it drip onto the face 60 mL 3 ??? cholecalciferol, Vitamin D3, 1,000 unit tablet Take 1,000 Units by mouth daily. ??? citalopram (CELEXA) 40 mg tablet Take 1 Tablet by mouth daily. 30 Tablet 2 ??? clonazePAM (KLONOPIN) 1 mg tablet TAKE 1 TABLET BY MOUTH DAILY AT BEDTIME. MAX: 1 MG 28 Tablet 0 ??? dextroamphetamine-amphetamine (ADDERALL XR) 30 mg XR capsule Take 1 capsule by mouth 2 times daily. Daily Max: 2 Capsules 56 capsule 0 ??? ferrous gluconate (FERGON) 324 mg (38 mg iron) tablet Take 1 Tablet by mouth daily with breakfast. 100 Tablet 0 ??? fluticasone propionate (FLONASE) 50 mcg/actuation nasal spray SHAKE LIQUID AND USE 2 SPRAYS IN EACH NOSTRIL DAILY 3 Bottle 0 ??? gabapentin (NEURONTIN) 300 mg capsule Take 1 capsule by mouth 2 times daily. 60 capsule 2 ??? IBUPROFEN (ADVIL ORAL) Take by mouth daily as needed. ??? ketoconazole (NIZORAL) 2 % shampoo Apply topically to affected area daily. Scalp and face. leave on 3-5 minutes then rinse off 1 Bottle 11 ??? loratadine (CLARITIN) 10 mg tablet Take 1 Tablet by mouth daily. 100 Tablet 1 ??? LORazepam (ATIVAN) 1 mg tablet Take 1 Tablet by mouth 2 times daily. Daily Max: 2 mg 30 Tablet 0 ??? melatonin 10 mg capsule Take 10 mg by mouth at bedtime. 100 capsule 2 ??? meloxicam (MOBIC) 7.5 mg tablet Take 1 Tablet by mouth 2 times daily as needed for Pain. (Patient not taking: Reported on 06/09/2022) 30 Tablet 1 ??? metroNIDAZOLE (METROGEL) 0.75 % gel Apply topically 2 times daily. ??? mupirocin (BACTROBAN) 2 % ointment Apply topically to affected area 2 times daily. For 5 days 22 g 3 ??? omeprazole (PRILOSEC) 20 mg capsule TAKE 1 CAPSULE BY MOUTH TWICE DAILY 180 capsule 1 ??? topiramate (TOPAMAX) 50 mg tablet TAKE [...] History Tobacco Use ??? Smoking status: Never Smoker ??? Smokeless tobacco: Never Used Substance Use Topics ??? Alcohol use: Yes Comment: 1x/month- liquor ??? Drug use: Not on file Review of Systems Constitutional: Positive for diaphoresis. Objective: Physical Exam Constitutional: General: She is not in acute distress. Appearance: She is well-developed and well-nourished. Neurological: Mental Status: She is alert and oriented to person, place, and time. Psychiatric: Mood and Affect: Mood and affect normal. Assessment/Plan: Jane Blair is an 47 y.o. female here for The encounter diagnosis was Hot flashes.. Diagnoses and all orders for this visit: Hot flashes - FSH; Future Hot flashes: Symptoms are consistent with hot flashes, likely post menopausal as she reports her last menstrual cycle was 1+ years ago Discussed potential treatment options, she is interested in HRT. She is already on an SSRI and gabapentin Will check an FSH level, if it confirms she is post menopausal then will start the following- estradiol patch 0.05 mg/day applied to skin twice weekly in addition to progesterone??100mg daily HS Discussed potential side effects She understands this can increase risks of breast cancer and CAD. She does have a family history ofbreast cancer, so we discussed the importance of annual mammography screening Will await FSH levels prior to prescribing Yenifer Rolon APRN documented in this encounter Plan of Treatment Upcoming Encounters Date Type Department Care Team (Late st Contact Info) Description 06/08/2024 13:30 EDT Office Visit [facility] [address] [facility] [address] [place] [address] Michelle Shannon MD [address] [place] [phone] documented as of this encounter Results * FSH (07/08/2022 15:00 EDT) FSH 52.7 See Note mIU/mL 07/08/2022 18:55 EDT [facility] Blood VENOUS BLOOD / Unknown Venipuncture / Unknown 07/08/2022 15:00 EDT 07/08/2022 15:00 EDT Narrative [facility] - 07/08/2022 18:55 EDT NOTE: Female FSH Reference Ranges (Menstruating): PHYSIOLOGICAL STATUS ? REFERENCE RANGE ? Follicular (-12 to -4 days): ?? 2.5 - 10.2 mIU/mL Midcycle (-3 to +2 days): ?3.4 - 33.4 mIU/mL Luteal (+4 to +12 days): ? 1.5 - 9.1 mIU/mL Postmenopausal: ?23.0 - 116.3 mIU/mL Reference Ranges for pediatric non-menstruating female patients have not been established. Yenifer Rolon APRN CHEMISTRY & BLOOD GA S ORDERABLES [facility] [address] [place] [address] documented in this encounter Visit Diagnoses Diagnosis Hot flashes- Primary Symptomatic menopausal or female climacteric states documented in this encounter Care Teams Building Guard Deputy Sheriff Relationship Specialty Start Date End Date Michelle Shannon MD [address] [place] [phone] PCP - General 09/08/11 documented as of this encounter
--- OUTSIDE RECORDS SUMMARY | 2024-04-28 15:52 | XMS_ITS | Encounter Summary ---
Author Organization [facility] Address [address] [place] [address] Care Team Providers Care Professional Application Designer Name Role Phone Michelle Shannon MD Primary Care Provider + Encounter Details Date Type Department Care Team (Late st Contact Info) Description 07/08/2022 15:00 EDT Phlebotomy Only [facility] - [address] [address] [place], [facility] Hot flashes Social History Tobacco Use Types Packs/Day Years [...] Info) Description 06/08/2024 13:30 EDT Office Visit [facility] [address] [facility] [address] [place] [address] Michelle Shannon MD [address] [place] [phone] documented as of this encounter Procedures Procedure Name Priority Date/Time Associated Diagnosis Comments FSH Routine 07/08/2022 15:00 EDT Hot flashes documented in this encounter Results * FSH (07/08/2022 15:00 EDT) FSH 52.7 See Note mIU/mL 07/08/2022 18:55 EDT [facility] Blood VENOUS BLOOD / Unknown Venipuncture / Unknown 07/08/2022 15:00 EDT 07/08/2022 15:00 EDT Narrative [facility] - 07/08/2022 18:55 EDT NOTE: [...] APRN CHEMISTRY & BLOOD GA S ORDERABLES [facility] [address] [place] [address] documented in this encounter Visit Diagnoses Diagnosis Hot flashes Symptomatic menopausal or female climacteric states documented in this encounter Care Teams Professional Application Designer Relationship Specialty Start Date End Date Michelle Shannon MD [address] [place] [phone] PCP - General 09/08/11 documented as of this encounter
--- OUTSIDE RECORDS SUMMARY | 2024-04-28 15:52 | XMS_ITS | Encounter Summary ---
Author Organization [facility] Address [address] [place] [address] Care Team Providers Care Pest Control Operator Name Role Phone Michelle Shannon MD Primary Care Provider + Reason for Visit * Reason Onset Date Comments Medications Refill 03/22/2022 Encounter Details Date Type Department Care Team (Late st Contact Info) Description 03/22/2022 Refill [facility] [address] [place] [phone] Michelle Shannon MD [address] [place] [phone] Medications Refill Social History Tobacco Use [...] MAX: 1 MG 28 Tablet 03/22/2022 04/21/2022 documented in this encounter Miscellaneous Notes * Telephone Encounter - Hang Kauffman - 03/22/2022 1543 EDT Patient needs refill of clonazepam sent to [facility] pharmacy. This medication was sent to [facility] in [place] on 03/17, but this is the wrong pharmacy. Pt runs out of medication today. HANG KAUFFMAN MA documented in this encounter Plan of Treatment Upcoming Encounters Date Type Department Care Team (Late st Contact Info) Description 06/08/2024 13:30 EDT Office Visit [facility] [address] [facility] [address] [place] [address] Michelle Shannon MD [address] [place] [phone] documented as of this encounter Visit Diagnoses Not on filedocumented in this encounter Discontinued Medications Medication Sig Discontinue Reason Start Date End Da te clonazePAM (KLONOPIN) 1 mg tablet TAKE 1 TABLET BY MOUTH DAILY AT BEDTIME. MAX: 1 MG Reorder 03/17/2022 03/22/2022 documented as of this encounter Care Teams Pest Control Operator Relationship Specialty Start Date End Date Michelle Shannon MD [address] [place] [phone] PCP - General 09/08/11 documented as of this encounter
--- OUTSIDE RECORDS SUMMARY | 2024-04-28 15:52 | XMS_ITS | Encounter Summary ---
Author Organization [facility] Address [address] [place] [address] Care Team Providers Care Infant And Toddler Teacher Name Role Phone Michelle Shannon MD Primary Care Provider + Reason for Visit * Reason Onset Date Comments Medications Refill 04/21/2022 Encounter Details Date Type Department Care Team (Late st Contact Info) Description 04/21/2022 Refill [facility] [address] [place] [phone] Michelle Shannon MD [address] [place] [phone] Medications Refill Social History Tobacco Use [...] daily. Daily Max: 2 Capsules 56 capsule 04/21/2022 05/25/2022 clonazePAM (KLONOPIN) 1 mg tablet TAKE 1 TABLET BY MOUTH DAILY AT BEDTIME. MAX: 1 MG 28 Tablet 04/21/2022 05/19/2022 documented in this encounter Miscellaneous Notes * Telephone Encounter - Dayna Guzman - 04/21/2022 1136 EDT Refill documented in this encounter Plan of Treatment Upcoming Encounters Date Type Department Care Team (Late st Contact Info) Description 06/08/2024 13:30 EDT Office Visit [facility] [address] [facility] [address] [place] [address] Michelle Shannon MD [address] [place] [phone] documented as of this encounter Visit Diagnoses Not on filedocumented in this encounter Discontinued Medications Medication Sig Discontinue Reason Start Date End Da te clonazePAM (KLONOPIN) 1 mg tablet TAKE 1 TABLET BY MOUTH DAILY AT BEDTIME. MAX: 1 MG Reorder 03/22/2022 04/21/2022 dextroamphetamine-amphe tamine (ADDERALL XR) 30 mg XR capsule Take 1 capsule by mouth 2 times daily. Daily Max: 2 Capsules Reorder 03/11/2022 04/21/2022 documented as of this encounter Care Teams Infant And Toddler Teacher Relationship Specialty Start Date End Date Michelle Shannon MD [address] [place] [phone] PCP - General 09/08/11 documented as of this encounter
--- OUTSIDE RECORDS SUMMARY | 2024-04-28 15:52 | XMS_ITS | Encounter Summary ---
Author Organization [facility] Address [address] [place] [address] Care Team Providers Care Maintenance Foreman Name Role Phone Michelle Shannon MD Primary Care Provider + Reason for Visit * Reason Onset Date Comments Medications Refill 02/10/2022 Encounter Details Date Type Department Care Team (Late st Contact Info) Description 02/10/2022 Refill [facility] [address] [place] [phone] Michelle Shannon MD [address] [place] [phone] Medications Refill Social History Tobacco Use [...] by mouth daily with breakfast. 100 Tablet 02/10/2022 04/03/2022 clonazePAM (KLONOPIN) 1 mg tablet TAKE 1 TABLET BY MOUTH DAILY AT BEDTIME. MAX: 1 MG 28 Tablet 02/10/2022 03/17/2022 documented in this encounter Miscellaneous Notes * Telephone Encounter - Hang Kauffman - 02/10/2022 1311 EDT Refill - pt would also like script for omeprazole sent in HANG KAUFFMAN MA documented in this encounter Plan of Treatment Upcoming Encounters Date Type Department Care Team (Late st Contact Info) Description 06/08/2024 13:30 EDT Office Visit [facility] [address] [place] [address] Michelle Shannon MD [address] [place] [phone] documented as of this encounter Visit Diagnoses Not on filedocumented in this encounter Discontinued Medications Medication Sig Discontinue Reason Start Date End Da te clonazePAM (KLONOPIN) 1 mg tablet TAKE 1 TABLET BY MOUTH DAILY AT BEDTIME. MAX: 1 MG Reorder 11/17/2021 02/10/2022 ferrous gluconate (FERGON) 324 mg (38 mg iron) tablet Take 1 Tablet by mouth daily with breakfast. Reorder 02/02/2022 02/10/2022 documented as of this encounter Care Teams Maintenance Foreman Relationship Specialty Start Date End Date Michelle Shannon MD [address] [place] [phone] PCP - General 09/08/11 documented as of this encounter
--- OUTSIDE RECORDS SUMMARY | 2024-04-28 15:52 | XMS_ITS | Encounter Summary ---
Author Organization [facility] Address [address] [place] [address] Care Team Providers Care Pre Assembly Wirer Name Role Phone Michelle Shannon MD Primary Care Provider + Reason for Visit * Reason Comments Elbow Problem right elbow Encounter Details Date Type Department Care Team (Late st Contact Info) Description 07/21/2022 14:45 EDT Office Visit [facility] Upper Extremity [facility] - [address] [address] Manuel Dupree MD [address] [place] [phone] Right elbow pain (Primary Dx) [...] Recorded In the last 10 days, have mariajose johnson been in contact with someone who was confirmed or suspected to have Coronavirus/COVID-19? No / Unsure 07/08/2022 14:48 EDT documented as of this encounter Progress Notes * Manuel Dupree MD - 07/21/2022 4672 EDT CC: Right elbow pain HPI: Jane returns today for follow-up. Symptoms are generally unchanged. Pain is not severe at thispoint although it is activity related. Her numbness and tingling has not been much of an issue. EXAMINATION: Patient is awake, alert and oriented x3 and appears comfortable. Exam is repeated and unchanged. MRI report and images were reviewed. These demonstrate findings consistent with distal biceps tendinosis. TREATMENT PLAN: Jane has right distal biceps tendinosis. Radiographic and clinical findings were reviewed in detail and treatment options were discussed. At this point I recommend a trial of focused therapy for her distal biceps tendinitis. Nature natural history of this condition was discussed. Most people will improve with time/therapy. We discussed potential for distal biceps tendon rupture and surgical intervention should that occur. We have also discussed the potential for surgical intervention in the way of debridement/repair should her symptoms remain persistent or limiting. I will seeher back as needed if symptoms fail to continue to improve. Certainly if she were to experience an acute distal biceps rupture she will call or return immediately. Patient is in agreement with this plan. documented in this encounter Plan of Treatment Upcoming Encounters Date Type Department Care Team (Late st Contact Info) Description 06/08/2024 13:30 EDT Office Visit [facility] [address] [facility] [address] [place] [address] Michelle Shannon MD [address] [place] [phone] documented as of this encounter Visit Diagnoses Diagnosis Right elbow pain- Primary Pain in joint, upper arm documented in this encounter Care Teams Pre Assembly Wirer Relationship Specialty Start Date End Date Michelle Shannon MD [address] [place] [phone] PCP - General 09/08/11 documented as of this encounter
--- OUTSIDE RECORDS SUMMARY | 2024-04-28 15:52 | XMS_ITS | Encounter Summary ---
Author Organization [facility] Address [address] [place] [address] Care Team Providers Care Food And Drug Inspector Name Role Phone Michelle Shannon MD Primary Care Provider + Reason for Visit * Reason Comments Follow-up reports she is going to be homeless soon Encounter Details Date Type Department Care Team (Late st Contact Info) Description 03/17/2022 15:00 EDT Office Visit [facility] [address] [place] [phone] Michelle Shannon MD [address] [place] [phone] MDD (major depressive disorder), recurrent episode, moderate (HCC) (Primary Dx); REM sleep behavior disorder; Excoriation (skin-picking) disorder Social History Tobacco Use Types Packs/Day [...] the money to buy more. Sometimes true 04 /12/2021 Within the past 12 months, t he [...] Sign Reading Time Taken Comments Blood Pressure 106/74 03/17/2022 1458 EDT Pulse 96 03/17/2022 1458 EDT Temperature 36.6 ??C (97.9 ??F) 03/17/2022 1458 EDT Respiratory Rate - - Oxygen Saturation 96% 03/17/2022 1458 EDT Inhaled Oxygen Concentration - - Weight 89.1 kg (196 lb 6.4 oz) 03/17/2022 1458 E DT Height - - Body Mass Index 33.71 11/17/20202028 EST documented in this encounter Ordered Prescriptions Prescription Sig Dispensed Refills Start Date End Da te clonazePAM (KLONOPIN) 1 mg tablet TAKE 1 TABLET BY MOUTH DAILY AT BEDTIME. MAX: 1 MG 28 Tablet 03/17/2022 03/22/2022 documented in this encounter Progress Notes * Michelle Shannon MD - 03/17/2022 1500 EDT Jane Blair 46 y.o. 03/31/2022 Subjective: Chief Complaint Patient presents with ??? Follow-up reports she is going to be homeless soon HPI Jane is following up today for her chronic issues of depression, anxiety, excoriation disorder, narcolepsy, and REM sleep disorder. She also is still suffering from right arm and shoulder pain related to a fall in August 2021. Her psychiatric care has been managed at [facility], but unfortunately, she recently lost her psychiatrist, Dr. Broderick. He had been in the process of transitioning her off duloxetine and onto Celexa. She is now on 40 mg a day for about a month. It is difficult for her to tell if this is helping due to ongoing severe situational stressors. She just found out her release is being terminated, and she has 30days before she needs to move. She is also maxed out on her credit cards which affects her eligibility for housing. She has been extremely anxious during this time, and her picking behaviors have escalated. She is taking lorazepam with greater frequency in addition to clonazepam at bedtime. Her other chronic psychiatric medicines include Abilify, and Adderall. She continues to endorse symptoms ofpassive SI but no active plan. Her therapist Erasmo and case finisher Aixa are still involved in [facility]. She has a history of bilateral radicular pain in both arms that began in March 2021.Sx escalated after a fall onto her right wrist in Aug 2021. She has been on gabapentin 300mg bid. Most pain is localized around the right elbow and antecubital area. Prior right UE EMG in January showed radial and ulnar slowing. EMG of the left is still pending. She has been going to occupational therapy and had a previous steroid shot with some improvement. She still has significant pain triggered by pronation and supination and flexing her biceps. She has a follow up appt with ortho in 2 weeks. Had f/u with orthoon March 30. Active Problem List Patient Active Problem List Diagnosis ??? Narcolepsy without cataplexy ??? REM sleep behavior disorder ??? Migraine with aura ??? Episodic mood disorder (HCC-CMS) (HCC) ??? MDD (major depressive disorder), recurrent episode, moderate (HCC) ??? GERD without esophagitis ??? Vitamin D deficiency ??? Allergic rhinitis ??? Anxiety ??? Encounter for [facility] PMH PSH Past Medical History: Diagnosis Date [...] ??? ARIPiprazole (ABILIFY) 10 mg tablet ??? aprrlvx-fhmvfchltazoo-ofkrdsfk (EXCEDRIN MIGRAINE) 250-250-65 mg per tablet ??? [...] and has insomnia. Forgetful OBJECTIVE: Vitals: BP 106/74 Pulse 96 Temp 36.6 ??C (97.9 ??F) Wt 89.1 kg (196 lb 6.4 oz) SpO2 96% BMI 33.71 kg/m?? Physical Exam Constitutional: She appears well-developed and overweight. No physical distress. Cardiovascular: Normal rate, regular rhythm, Musculoskeletal:not re-examines today Skin: Multiple excoriations on the face, worsened since last visit Neuro: Mildly tremulous Psychiatric: Affect is anxious and tearful. Her speech is normal. Behavior is cooperative. She doesnot exhibit a depressed mood. Pt is mildly forgetful. ASSESSMENT and PLAN Jane was seen today for follow-up. Diagnoses and all orders for this visit: MDD (major depressive disorder), recurrent episode, moderate (HCC) REM sleep behavior disorder Excoriation (skin-picking) disorder Other orders - Discontinue: clonazePAM (KLONOPIN) 1 mg tablet; TAKE 1 TABLET BY MOUTH DAILY AT BEDTIME. MAX: 1 MG . Major depressive disorder, excoriation disorder, narcolepsy and REM sleep disorder. Increasing sx with stressors and suicidal thoughts with added stressors. Excoriation disorder is more active as hermedications are being adjusted. Currently taking Celexa 40 mg, but may need further adjustment. Melatonin at hs Continue Adderall XR 30mg bid Abilify 10mg a day Clonazepam 1 mg at bedtime Continue Lorazepam 1 mg p.o. 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 Also with Right wrist injury due to fall in Aug 2021 Right EMG shows slowing of both the radial and ulnar nerve Left UE EMG pending Continue PT/OT Increase gabapentin to 300 mg in the a.m. and 600 mg at at bedtime Migraines- Continue topamax 75mg bid. Avoid increase due to last labs indicating metabolic acidosis Stopped Maxalt due to lack of efficacy and interaction with starting Celexa Continue ibuprofen 800mg as needed She also uses Excedrin prn BMP yearly, due in Apr Housing concerns Has support from case finisher through [facility] Discussed COTS, but she has 2 cats which may be an issue I left a message for her trimming caser Aixa Bonilla and asked if CHT SW would be of any assistance or if this would be duplicating resources. Michelle Shannon MD documented in this encounter Plan of Treatment Upcoming Encounters Date Type Department Care Team (Late st Contact Info) Description 06/08/2024 13:30 EDT Office Visit [facility] [address] [place] [address] Michelle Shannon MD [address] [place] [phone] documented as of this encounter Visit Diagnoses Diagnosis MDD (major depressive disorder), recurrent episode, moderate ([facility])- Primary Major depressive disorder, recurrent episode, moderate REM sleep behavior disorder Excoriation (skin-picking) disorder documented in this encounter Discontinued Medications Medication Sig Discontinue Reason Start Date End Da te clonazePAM (KLONOPIN) 1 mg tablet TAKE 1 TABLET BY MOUTH DAILY AT BEDTIME. MAX: 1 MG Reorder 02/10/2022 03/17/2022 documented as of this encounter Care Teams Food And Drug Inspector Relationship Specialty Start Date End Date Michelle Shannon MD [address] [place] [phone] PCP - General 09/08/11 documented as of this encounter
--- OUTSIDE RECORDS SUMMARY | 2024-04-28 15:53 | XMS_ITS | Encounter Summary ---
Author Organization [facility] Address [address] [place] [address] Care Team Providers Care Stretch Press Operator Name Role Phone Michelle Shannon MD Primary Care Provider + Reason for Visit * Reason Onset Date Comments Appointment Related 09/08/2021 Encounter Details Date Type Department Care Team (Late st Contact Info) Description 09/08/2021 Telephone [facility] [address] [place], [place] [phone] Curtis Tamayo RN Appointment Related Social History Tobacco Use Types Packs/Day Years Used Date Smoking Tobacco: Never Smokeless Tobacco: Never Alcohol Use Standard Drinks/Week Comments Yes 0 (1 standard drink = 0.6 oz pur e alcohol) 1x/month- liquor Interpersonal Safety Answer Date Record ed Physically Hurt Never 04/27/2020 Verbally Threaten Not on file 04/27/2020 Sex and Gender Information Value Date Recorded Sex Assigned at Not on file Gender Identity Female 11/10/2020 8:41 EST Sexual Orientation Straight 12/07/2023 23 :06 EDT COVID-19 Exposure Response Date Recorded In the last month, have you been in contact with someone who was confirmed or suspected to have Coronavirus / COVID-19? No / Unsure 09/07/2021 13:05 EST documented as of this encounter Miscellaneous Notes * Telephone Encounter - Curtis Tamayo RN - 09/08/2021 1585 EST Pt called requesting visit to discuss hip pain/sciatica and possibly get PT referral. CURTIS WATKIN, RN documented in this encounter Plan of Treatment Upcoming Encounters Date Type Department Care Team (Late st Contact Info) Description 06/08/2024 13:30 EDT Office Visit [facility] [address] [place], [place] [phone] Mcihelle Shannon MD [address] [place] [phone] documented as of this encounter Visit Diagnoses Not on filedocumented in this encounter Care Teams Stretch Press Operator Relationship Specialty Start Date End Date Michelle Shannon MD [address] [place] [phone] PCP - General 09/08/11 documented as of this encounter
--- OUTSIDE RECORDS SUMMARY | 2024-04-28 15:53 | XMS_ITS | Encounter Summary ---
Author Organization [facility] Address [address] [place] [address] Care Team Providers Care Business Office Associate Name Role Phone Michelle Shannon MD Primary Care Provider + Reason for Referral * Radiology Services (Routine/Next Available) - Authorization Not Required Specialty Diagnoses / Procedures Referred By Contac t Referred To Contact Diagnoses Right elbow pain Procedures XR ELBOW RIGHT 3 OR MORE VIEWS Vasyl Noel PA-C [address] [place] [phone] [facility] Referral ID Status Reason Start Date Expiration Date Visits Requested Visits Authorized [id number] Authorization Not Required 01/26/2022 1 1 Reason for Visit * Radiology Services (Routine/Next Available) - Authorization Not Required Specialty Diagnoses / Procedures Referred By Thelma long Referred To Contact Diagnoses Right elbow pain Procedures XR ELBOW RIGHT 3 OR MORE VIEWS Vasyl Noel PA-C [address] [place] [phone] [facility] Referral ID Status Reason Start Date Expiration Date Visits Requested Visits Authorized [id number] Authorization Not Required 01/26/2022 1 1 Encounter Details Date Type Department Care Team (Latest Contact Info) Description 01/26/2022 13:38 EDT - 01/26/2022 23:59 EDT [address] Encounter [address] [facility] [address] [place] [address] Right elbow pain Discharge Disposition: Home or [...] Tablet by mouth daily. 04/25/2023 citalopram (CELEXA) 20 mg tablet Take 20 mg by mouth daily. 03/31/2022 clonazePAM (KLONOPIN) 1 mg tablet TAKE 1 TABLET BY MOUTH DAILY AT BEDTIME. MAX: 1 MG 28 Tablet 11/17/2021 02/10/2022 cyclobenzaprine (FLEXERIL) 10 mg tablet Take 1 Tablet by mouth every 8 hours as needed for Muscle Spasms. 15 Tablet 07/31/2021 02/02/2022 dextroamphetamine-amph etamine (ADDERALL XR) 30 mg XR capsule Take 1 capsule by mouth 2 times daily. Daily Max: 2 Capsules 56 capsule 12/09/2021 02/02/2022 DULoxetine (CYMBALTA) 60 mg capsule TAKE 1 CAPSULE BY MOUTH DAILY 90 capsule 1 06/08/2021 03/31/2022 ferrous gluconate (FERGON) 324 mg (38 mg iron) tablet Take 1 Tablet by mouth daily with breakfast. 100 Tablet 12/07/2021 02/02/2022 gabapentin (NEURONTIN) 300 mg capsule Take 1 capsule by mouth 3 times daily. Use bid 90 capsule 2 12/28/2021 03/19/2022 IBUPROFEN (ADVIL ORAL) Take by mouth daily [...] 2 times daily. Daily Max: 2 mg 60 Tablet 06/18/2021 03/31/2022 meloxicam (MOBIC) 7.5 mg tablet Take 1 Tablet by mouth 2 times daily as needed for Pain. 30 Tablet 1 01/15/2022 02/05/2023 mupirocin (BACTROBAN) 2 % ointment Apply topically to affected area 2 times daily. For 5 days 22 g 3 11/19/2020 10/19/2023 OMEPRAZOLE ORAL Take 40 mL by mouth 2 times daily. 02/16/2022 topiramate (TOPAMAX) 50 mg tablet TAKE 1 AND 1/2 TABLETS BY MOUTH TWICE DAILY 270 Tablet 1 12/07/2021 03/31/2022 tretinoin (RETIN-A) 0.025 % cream Apply topically [...] Info) Description 06/08/2024 13:30 EDT Office Visit [facility] [address] [place] [address] Michelle Shannon MD [address] [place] [phone] documented as of this encounter Procedures Procedure Name Priority Date/Time Associated Diagnosis Comments XR ELBOW RIGHT 3 OR MORE VIEWS Routine 01/26/2022 13:46 EDT Right elbow pain documented in this encounter Results * XR ELBOW RIGHT 3 OR MORE VIEWS (01/26/2022 13:46 EDT) Anatomical Region Laterality Modality Upper Extremities Right Computed Radio graphy 01/27/2022 15:3 3 EDT Impressions 01/27/2022 15:33 EDT FINDINGS / IMPRESSION: 4 views of the right elbow show no fracture or malalignment. The joint spaces are well-preserved and there is no sizable joint effusion. Narrative 01/27/2022 15:33 EDT EXAM/TECHNIQUE: XR ELBOW RIGHT 3 OR MORE VIEWS ??01/26/2022 1:45 PM HISTORY: ?? Right elbow pain COMPARISON: None. Procedure Note Romeo Mcgee, DO - 01/27/2022 EXAM/TECHNIQUE: XR ELBOW RIGHT 3 OR MORE VIEWS 01/26/2022 1:45 PM HISTORY: Right elbow pain COMPARISON: None. IMPRESSION FINDINGS / IMPRESSION: 4 views of the right elbow show no fracture or malalignment. The jointspaces are well-preserved and there is no sizable joint effusion. Vasyl Noel PA-C [facility] ORDERABLES documented in this encounter Visit Diagnoses Diagnosis Right elbow pain Pain in joint, upper arm documented in this encounter Care Teams Business Office Associate Relationship Specialty Start Date End Date Michelle Shannon MD [address] [place] [phone] PCP - General 09/08/11 documented as of this encounter
--- OUTSIDE RECORDS SUMMARY | 2024-04-28 15:53 | XMS_ITS | Encounter Summary ---
Author Organization [facility] Address [address] [place] [address] Care Team Providers Care Terminal Superintendent Name Role Phone Michelle Shannon MD Primary Care Provider + Reason for Referral * PT/OT/ST (See Order Priority) - Authorization Not Required Specialty Diagnoses / Procedures Referred By Thelma long Referred To Contact Rehab Therapies Diagnoses Chronic pain of right wrist Luiz Grant DNP [address] [place] [phone] [facility] [address] [place] [id number] Referral ID Status Reason Start Date Expiration Date Visits Requested Visits Authorized [id number] Authorization Not Required Specialty Services Required 2 1 1 Reason for Visit * Reason Comments Wrist Pain Encounter Details Date Type Department Care Team ([facility] st Contact Info) Description 12/15/2021 13:00 EDT Office Visit [facility] [address] [place] [phone] Luiz Grant DNP [address] [place] [phone] Chronic pain of right wrist (Primary Dx) Social History Tobacco Use Types [...] Taken Comments Blood Pressure - - Pulse 68 12/15/2021 1400 EDT Temperature - - Respiratory Rate 16 12/15/2021 1400 EDT Oxygen Saturation - - Inhaled Oxygen Concentration - - Weight - - Height - - Body Mass Index - - documented in this encounter Progress Notes * Luiz Grant, DNP - 12/15/2021 1300 EDT Subjective: Patient ID: Jane Blair is an 46 y.o. female. Chief Complaint Patient presents with ??? Wrist Pain HPI Jane fell and injured her right wrist back in August when she slipped on some ice. I saw her in clinic shortly afterward and ordered x-rays which were normal and without any evidence of acute fracture or dislocation. Jane says that she continues to have pain in her right wrist since the fall and it seems to be getting worse. The pain is located in the volar aspect of her hand and right wrist and radiates proximally into her forearm. The pain is most prominent with supination and flexion of her wrist. She has full range of motion, however her strength is diminished. She denies any numbness or tingling of her hand or fingers. She's tried resting her wrist, she's also on gabapentin which seems to help. She hasn't tried bracing, OTC NSAIDs or Tylenol. She's right hand dominant. She does do a lot of crochetingand knitting and these seem to aggravate the wrist. She doesn't have any elbow pain. She doesn't play racket sports. She has a hx of left arm pain and paresthesias and is scheduled to have EMG done for this next week. Patient Active Problem List Diagnosis ??? Narcolepsy [...] TUBE PLACEMENT ??? WISDOM TOOTH EXTRACTION Family History Problem Relation Age of Onset ??? Melanoma Mother ??? *Other(comment) Mother Sjogrens and ? RA, SAMANIEGO ??? Diabetes Mother ??? Obesity Mother ??? Hypertension Mother ??? Elevated Lipids Mother ??? Hemochromatosis Mother ??? Heart Attack Mother ??? Heart Disease Mother ??? Breast Cancer Maternal Grandmother ??? Colon Cancer Maternal Grandfather ??? Breast Cancer Maternal Aunt ??? Unknown Father ??? Migraines Paternal Grandmother ??? Alcohol Abuse Brother fatty liver and GERD ??? Colon Cancer Paternal Grandfather Social Social History Tobacco Use ??? Smoking status: Never Smoker ??? Smokeless tobacco: Never Used Substance Use Topics ??? Alcohol use: Yes Comment: 1x/month- liquor ??? Drug use: Not on file Current Outpatient Medications on File Prior to Visit Medication Sig Dispense Refill ??? acetylcysteine 600 mg capsule 600mg twice daily for 2 weeks then increase to 1200mg twice Cap 3 ??? adapalene 0.3 % gel [...] mouth at bedtime. 90 Tablet 2 ??? htwsphk-sndydojjqwjlv-vwdzyuns (EXCEDRIN MIGRAINE) 250-250-65 mg per tablet Take 1 Tab by mouthevery 6 hours as needed. Indications: MIGRAINE ??? betamethasone dipropionate 0.05 % lotion Apply topically 2 times daily. Twice daily as needed for itch. Do not let it drip onto the face 60 mL 3 ??? cholecalciferol, Vitamin D3, 1,000 unit tablet Take 1,000 Units by mouth daily. ??? clonazePAM (KLONOPIN) 1 mg tablet TAKE 1 TABLET BY MOUTH DAILY AT BEDTIME. MAX: 1 MG 28 Tablet 0 ??? cyclobenzaprine (FLEXERIL) 10 mg tablet Take 1 Tablet by mouth every 8 hours as needed for Muscle Spasms. 15 Tablet 0 ??? dextroamphetamine-amphetamine (ADDERALL XR) 30 mg XR capsule Take 1 capsule by mouth 2 times daily. Daily Max: 2 Capsules 56 capsule 0 ??? DULoxetine (CYMBALTA) 60 mg capsule TAKE 1 CAPSULE BY MOUTH DAILY (Patient taking differently: 30 mg. ) 90 capsule 1 ??? ferrous gluconate (FERGON) 324 mg (38 mg iron) tablet Take 1 Tablet by mouth daily with breakfast. 100 Tablet 0 ??? fluticasone propionate (FLONASE) 50 mcg/actuation nasal spray SHAKE LIQUID AND USE 2 SPRAYS IN EACH NOSTRIL DAILY 3 Bottle 0 ??? gabapentin (NEURONTIN) 300 mg capsule Take 1 capsule by mouth 3 times daily. 90 capsule 2 ??? IBUPROFEN (ADVIL ORAL) Take [...] daily. Daily Max: 2 mg 60 Tablet 0 ??? melatonin 10 mg capsule Take 10 mg by mouth at bedtime. 100 capsule 2 ??? metroNIDAZOLE (METROGEL) 0.75 % gel Apply topically 2 times daily. ??? mupirocin (BACTROBAN) 2 % ointment Apply topically to affected area 2 times daily. For 5 days 22 g 3 ??? OMEPRAZOLE ORAL Take 40 mL by mouth 2 times daily. ??? rizatriptan (MAXALT-CYTOTECHNOLOGIST/CYTOLOGY SUPERVISOR) 10 mg disintegrating tablet Take 1 Tablet by mouth as needed for Migraine. 10 Tablet 2 ??? topiramate (TOPAMAX) 50 mg tablet TAKE 1 AND 1/2 TABLETS BY MOUTH TWICE DAILY 270 Tablet 1 ??? tretinoin (RETIN-A) 0.025 % cream Apply topically to affected area at bedtime. Stat twice weekly, pea sized amount to the whole face. 45 g 6 No current facility-administered medications on file prior to visit. No Known Allergies Review of Systems Constitutional: Negative. Musculoskeletal: Positive for joint pain (right hand, wrist). Neurological: Positive for focal weakness. Negative for tingling and sensory change. - See HPI Objective: Pulse 68 Resp 16 Physical Exam Constitutional: General: She is not in acute distress. Appearance: She is well-developed and well-nourished. She is not diaphoretic. Musculoskeletal: Right elbow: No swelling or deformity. Normal range of motion. No tenderness. Right forearm: Tenderness (proximal forearm, ulnar aspect) present. No bony tenderness. Right wrist: Tenderness present. No swelling, deformity, effusion or crepitus. Decreased range of motion (pain with supination, flexion). Normal pulse. Right hand: No swelling or deformity. Normal range of motion. Normal strength. Normal sensation. Normal capillary refill. Skin: General: Skin is warm and dry. Findings: No erythema or rash. Neurological: Mental Status: She is alert and oriented to person, place, and time. Psychiatric: Mood and Affect: Mood and affect normal. Behavior: Behavior normal. Thought Content: Thought content normal. Judgment: Judgment normal. Assessment/Plan: Jane was seen today for wrist pain. Diagnoses and all orders for this visit: Chronic pain of right wrist - AMB CONS/FOLLOW UP HAND THERAPY; Future -Following injury from a fall on her outstretched right arm -Not improving with conservative measures -Imaging was negative but could have been an occult fracture that was missed on the initial x-ray however it's been 12 weeks so I think any fracture would be healed at this time -Will try referring to OT hand/wrist therapy -Jane will plan to f/u if no improvement with therapy or if her symptoms worsen despite this -Contingency of repeat imaging, would start with x-ray but would also consider MRI if the x-ray is normal Luiz Grant DNP documented in this encounter Plan of Treatment Upcoming Encounters Date Type Department Care Team (Late st Contact Info) Description 06/08/2024 13:30 EDT Office Visit [facility] [address] [place] [address] Michelle Shannon MD [address] [place] [phone] Scheduled Referrals Name Type Priority Associated Diagnoses Order Schedule AMB CONS/FOLLOW UP HAND THERAPY Outpatient Referral Routine/Next Available Chronic pain of right wrist Expected: 12/22/2021 (Approximate), Expires: 12/15/2022 documented as of this encounter Visit Diagnoses Diagnosis Chronic pain of right wrist- Primary documented in this encounter Care Teams Terminal Superintendent Relationship Specialty Start Date End Date Michelle Shannon MD [address] [place] [phone] PCP - General 09/08/11 documented as of this encounter
--- OUTSIDE RECORDS SUMMARY | 2024-04-28 15:53 | XMS_ITS | Encounter Summary ---
Author Organization [facility] Address [address] [place] [address] Care Team Providers Care Retail Pharmacy Technician Name Role Phone Michelle Shannon MD Primary Care Provider + Reason for Visit * Reason Onset Date Comments Physical Therapy 01/12/2022 Encounter Details Date Type Department Care Team (Late st Contact Info) Description 01/12/2022 Telephone [facility] [address] [place] [address] Curtis Casillas, RN Physical Therapy Social History Tobacco Use Types Packs/Day Years [...] Telephone Encounter - Yenifer Rolon APRN - 01/19/2022 1008 EDT Yes I was waiting to hear back from her therapist as I felt the source of her pain was likely her elbow versus her wrist and her therapist wrote me back yesterday in agreement. I will order the imaging today and I think I already placed the referral for Dr. García but I will double check. Guillermo blevins * Telephone Encounter - Romeo Elliott MD - 01/12/2022 1557 EDT It looks like she feel in August so this is ongoing and I would have Dr. Shannon address it when she returns Romeo Elliott MD * Telephone Encounter - Curtis Casillas RN - 01/12/2022 1547 EDT Message left from TRESA Orellana, with [facility]. She is calling to report that pt isn't doing very well - her pain today was 8/10, pt had tears in eyes due to pain, it is waking her up at night. She wanted to give Dr. Shannon a heads up that pt is not really responding to therapy and may need something other than what she is providing care for. CURTIS CASILLAS, RN documented in this encounter Plan of Treatment Upcoming Encounters Date Type Department Care Team (Late st Contact Info) Description 06/08/2024 13:30 EDT Office Visit [facility] [address] [place], [place] [phone] Michelle Shannon MD [address] [place] [phone] documented as of this encounter Visit Diagnoses Not on filedocumented in this encounter Care Teams Retail Pharmacy Technician Relationship Specialty Start Date End Date Michelle Shannon MD [address] [place] [phone] PCP - General 09/08/11 documented as of this encounter
--- OUTSIDE RECORDS SUMMARY | 2024-04-28 15:53 | XMS_ITS | Encounter Summary ---
Author Organization [facility] Address [address] [place] [address] Care Team Providers Care Health Technician Hearing Name Role Phone Michelle Shannon MD Primary Care Provider + Reason for Visit * Reason Comments Other Encounter Details Date Type Department Care Team (Late st Contact Info) Description 06/06/2021 Refill [facility] [address] [place] [address] Michelle Shannon MD [address] [place] [phone] Other Social History Tobacco Use Types [...] Da te ARIPiprazole (ABILIFY) 10 mg tablet TAKE 1 TABLET BY MOUTH AT BEDTIME 90 Tablet 2 06/08/2021 12/07/2021 DULoxetine (CYMBALTA) 60 mg capsule TAKE 1 CAPSULE BY MOUTH DAILY 90 capsule 1 06/08/2021 03/31/2022 documented in this encounter Plan of Treatment Upcoming Encounters Date Type Department Care Team (Late st Contact Info) Description 06/08/2024 13:30 EDT Office Visit [facility] [address] [place], [place] [phone] Michelle Shannon MD [address] [place] [phone] documented as of this encounter Visit Diagnoses Not on filedocumented in this encounter Discontinued Medications Medication Sig Discontinue Reason Start Date End Da te DULoxetine (CYMBALTA) 60 mg capsule Take 1 Cap by mouth daily. 12/26/2020 06/08/2021 ARIPiprazole (ABILIFY) 10 mg tablet Take 1 Tab by mouth at bedtime. 10/29/2020 06/08/2021 documented as of this encounter Care Teams Health Technician Hearing Relationship Specialty Start Date End Date Michelle Shannon MD [address] [place] [phone] PCP - General 09/08/11 documented as of this encounter
--- OUTSIDE RECORDS SUMMARY | 2024-04-28 15:53 | XMS_ITS | Encounter Summary ---
Author Organization [facility] Address [address] [place] [address] Care Team Providers Care Drainman Name Role Phone Michelle Shannon MD Primary Care Provider + Reason for Visit * Reason Onset Date Comments Medications Refill 08/19/2021 Encounter Details Date Type Department Care Team (Late st Contact Info) Description 08/19/2021 Refill [facility] [address] [place] [phone] Michelle Shannon MD [address] [place] [phone] Medications Refill Social History Tobacco Use Types [...] AT BEDTIME. MAX: 1 MG 28 Tablet 1 08/19/2021 10/02/2021 documented in this encounter Plan of Treatment Upcoming Encounters Date Type Department Care Team (Late st Contact Info) Description 06/08/2024 13:30 EDT Office Visit [facility] [address] [place] [address] [place], [place] [phone] Michelle hSannon MD [address] [place] [phone] documented as of this encounter Visit Diagnoses Not on filedocumented in this encounter Discontinued Medications Medication Sig Discontinue Reason Start Date End Da te clonazePAM (KLONOPIN) 1 mg tablet TAKE 1 TABLET BY MOUTH DAILY AT BEDTIME. MAX: 1 MG Reorder 05/07/2021 08/19/2021 documented as of this encounter Care Teams Drainman Relationship Specialty Start Date End Date Michelle Shannon MD [address] [place] [phone] PCP - General 09/08/11 documented as of this encounter
--- OUTSIDE RECORDS SUMMARY | 2024-04-28 15:53 | XMS_ITS | Encounter Summary ---
Author Organization [facility] Address [address] [place] [address] Care Team Providers Care Poison Information Specialist Name Role Phone Michelle Shannon MD Primary Care Provider + Reason for Visit * Reason Onset Date Comments Appointment Related 12/21/2021 Encounter Details Date Type Department Care Team (Late st Contact Info) Description 12/21/2021 Telephone [facility] Neurophysiology - [facility] [address] [place], [place] [phone] Ramon Botello MD [address] [place] [phone] Appointment Related Social History Tobacco Use Types [...] encounter Miscellaneous Notes * Telephone Encounter - Marshall Gómez - 12/21/2021 1157 EDT Patient called. Scheduled visit with Ramon Botello MD on 04/19 at 2:20pm. Last visit in this clinic: 12/21/2021 Next appointment scheduled in this clinic: 04/19/2022 Are you familiar with the Hospital? Directions to get to [facility]: From parking garage, Take the elevators to the 3rd floor. You will come off the elevators and go through our screening station Go straight to the end of the lobby and take a right Walk down hallway Look for the Islas or ???E?? Elevators Take those up to 5th floor Come out of elevator, take a left down the hallway and another left towards [facility] If you get lost, please stop at our information desk on the 3rd floor and they will give you a map. documented in this encounter Plan of Treatment Upcoming Encounters Date Type Department Care Team (Late st Contact Info) Description 06/08/2024 13:30 EDT Office Visit [facility] [address] [place], [place] [phone] Michelle Shannon MD [address] [place] [phone] documented as of this encounter Visit Diagnoses Not on filedocumented in this encounter Care Teams Poison Information Specialist Relationship Specialty Start Date End Date Michelle Shannon MD [address] [place] [phone] PCP - General 09/08/11 documented as of this encounter
--- OUTSIDE RECORDS SUMMARY | 2024-04-28 15:53 | XMS_ITS | Encounter Summary ---
Author Organization [facility] Address [address] [place] [address] Care Team Providers Care Angiography Nurse Name Role Phone Michelle Shannon MD Primary Care Provider + Reason for Visit * Reason Onset Date Comments Appointment Related 11/02/2021 Encounter Details Date Type Department Care Team (Late st Contact Info) Description 11/02/2021 Telephone [facility] Neurophysiology - [facility] [address] [place], [place] [phone] Ramon Botello MD [address] [place] [phone] Appointment Related Social History Tobacco Use [...] * Telephone Encounter - Rosalva Aleman - 11/03/2021 1217 EST Patient called. Scheduled visit with Ramon Botello MD on 12/21/21 at 10:40am. Last visit in this clinic: Visit date not found Next appointment scheduled in this clinic: 12/21/2021 Are you familiar with the Hospital? YES Directions to get to [facility]: [...] and they will give you a map. * Telephone Encounter - Marshall Gómez - 11/02/2021 1620 EST Called to schedule EMG LVM call back number [phone] documented in this encounter Plan of Treatment Upcoming Encounters Date Type Department Care Team (Late st Contact Info) Description 06/08/2024 13:30 EDT Office Visit [facility] [address] [facility] [address] [place] [address] Michelle Shannon MD [address] [place] [phone] documented as of this encounter Visit Diagnoses Not on filedocumented in this encounter Care Teams Angiography Nurse Relationship Specialty Start Date End Date Michelle Shannon MD [address] [place] [phone] PCP - General 09/08/11 documented as of this encounter
--- OUTSIDE RECORDS SUMMARY | 2024-04-28 15:53 | XMS_ITS | Encounter Summary ---
Author Organization [facility] Address [address] [place] [address] Care Team Providers Care Storehouse Clerk Name Role Phone Michelle Shannon MD Primary Care Provider + Encounter Details Date Type Department Care Team (Latest Contact Info) Description 09/07/2021 Travel Social History Tobacco Use Types Packs/Day [...] 13:05 EST documented as of this encounter Plan of Treatment Upcoming Encounters Date Type Department Care Team (Late st Contact Info) Description 06/08/2024 13:30 EDT Office Visit [facility] [address] [place], [place] [phone] Michelle Shannon MD [address] [place] [phone] documented as of this encounter Visit Diagnoses Not on filedocumented in this encounter Care Teams Storehouse Clerk Relationship Specialty Start Date End Date Michelle Shannon MD [address] [place] [phone] PCP - General 09/08/11 documented as of this encounter
--- OUTSIDE RECORDS SUMMARY | 2024-04-28 15:53 | XMS_ITS | Encounter Summary ---
Author Organization [facility] Address [address] [place] [address] Care Team Providers Care Plant Chief Name Role Phone Michelle Shannon MD Primary Care Provider + Reason for Referral * Radiology Services (Routine/Next Available) - Authorization Not Required Specialty Diagnoses / Procedures Referred By Contac t Referred To Contact Diagnoses Injury of ligament of right hand, subsequent encounter Procedures XR HAND RIGHT 3 OR MORE VIEWS Michelle Shannon MD [address] [place] [phone] [facility] Referral ID Status Reason Start Date Expiration Date Visits Requested Visits Authorized [id number] Authorization Not Required 09/28/2021 1 1 Reason for Visit * Reason Comments Follow-up Encounter Details Date Type Department Care Team (Late st Contact Info) Description 09/28/2021 11:00 EST Office Visit [facility] [address] [place] [address] Michelle Shannon MD [address] [place] [phone] Injury of ligament of right hand, subsequent encounter (Primary Dx); REM sleep behavior disorder Social [...] 13:05 EST documented as of this encounter Last Filed Vital Signs Vital Sign Reading Time Taken Comments Blood Pressure 116/78 09/28/2021 1121 EST Pulse 90 09/28/2021 1121 EST Temperature 36.7 ??C (98 ??F) 09/28/2021 1121 EST Respiratory Rate - - Oxygen Saturation 98% 09/28/2021 1121 EST Inhaled Oxygen Concentration - - Weight 88.9 kg (196 lb) 09/28/2021 1121 EST Height - - Body Mass Index 33.64 11/17/2020 2029 EST documented in this encounter Progress Notes * Michelle Shannon MD - 09/28/2021 1100 EST Jane Blair 46 y.o. 09/28/2021 Subjective: Chief Complaint Patient presents with ??? Follow-up HPI Jane is following up today for depression, anxiety, excoriation disorder, narcolepsy, and REM sleepdisorder. She also would like to follow-up on a recent injury to the right hand. She had a fall on the ice on 09/11/21 and landed on her outstretched right hand. She also reports that bystanders saw her hit her head. She had a headache for 2 days after the fall, but symptoms are better now. Denies neck pain, nausea, photophobia, or sensitivity to sound. Her main complaint is ongoing pain in the third through fifth fingers. The dorsal aspect of her right hand is bruised even now that the swelling has gone down, and it hurts to oppose the third fourth and fifth fingers with the thumb. Pain shoots from the dorsum of the hand up to the forearm with these movements. There are no issues with range of motion at the wrist other than with ulnar rotation of the hand. Tylenol doesnot help, so she has been taking 600 mg of ibuprofen periodically. She also has been needing to sleep with her hand on a pillow. An x-ray last week did not reveal any fracture, but was performed within 2 days of her injury. She continues to take gabapentin for history of radicular pain in both arms that started in March. Her symptoms have resolved on medication, and she has been reluctant to discontinue it. Current dose is 300 mg 3 times a day. She was never called to schedule the EMG requested at her last visit and she never went for x- ray of the neck because her symptoms improved. She is currently unemployed and continues to see her therapist Erasmo at [facility]. Her chronic psychiatric medicines include clonazepam, Abilify, and Adderall. She rarely uses lorazepam for breakthrough symptoms. She continues to have migraines about once a week and takes topamax 75mg bid for prophylaxis. She was also prescribed Maxalt BALANCE WEIGHER at her last visit, but we did not address today if this was working well for her Active Problem List Patient Active Problem List Diagnosis ??? Narcolepsy without cataplexy ??? REM sleep behavior disorder ??? Migraine with aura ??? Episodic mood disorder (HCC-CMS) (HCC) ??? MDD (major depressive disorder), recurrent episode, moderate (HCC) ??? GERD without esophagitis ??? Vitamin D deficiency ??? Allergic rhinitis ??? Anxiety ??? Encounter for [facility] Past Medical History: Diagnosis Date ??? Allergic [...] ??? ARIPiprazole (ABILIFY) 10 mg tablet ??? zktidgb-gsyptucdjshco-mlizpvkh (EXCEDRIN MIGRAINE) 250-250-65 mg per tablet ??? betamethasone dipropionate 0.05 % lotion ??? cholecalciferol, Vitamin D3, 1,000 unit tablet ??? clonazePAM (KLONOPIN) 1 mg tablet ??? cyclobenzaprine (FLEXERIL) 10 mg tablet ??? dextroamphetamine-amphetamine (ADDERALL XR) 30 mg XR capsule ??? DULoxetine (CYMBALTA) 60 mg capsule ??? ferrous gluconate (FERGON) 324 mg [...] ??? mupirocin (BACTROBAN) 2 % ointment ??? OMEPRAZOLE ORAL ??? rizatriptan (MAXALT-BALANCE WEIGHER) 10 mg disintegrating tablet ??? topiramate (TOPAMAX) 50 mg tablet ??? tretinoin (RETIN-A) 0.025 % cream No current facility-administered medications for this visit. ROS OBJECTIVE: Vitals: BP 116/78 Pulse 90 Temp 36.7 ??C (98 ??F) (Temporal) Wt 88.9 kg (196 lb) SpO2 98% BMI 33.64 kg/m?? Physical Exam Constitutional: She appears well-developed and overweight. No physical distress. Cardiovascular: Normal rate, regular rhythm, Musculoskeletal: Right hand with dorsal faint 2 inch area of ecchymosis. No swelling, but tender topalpation. Pain with opposing the right third, fourth, and fifth fingers with the thumb. No pain with range of motion at the wrist other than with ulnar rotation. Skin: Not reexamined today Neuro: Mildly tremulous Psychiatric: Affect is anxious. Her speech is normal. She is not agitated, not hyperactive and not withdrawn. She does not exhibit a depressed mood. Pt is mildly forgetful. ASSESSMENT and PLAN Jane was seen today for follow-up. Diagnoses and all orders for this visit: Injury of ligament of right hand, subsequent encounter - XR HAND RIGHT 3 OR MORE VIEWS; Future - WRIST SPLINT REM sleep behavior disorder Right hand injury with ongoing bruising and limitation with range of motion Repeat Xray of the hand If the x-ray is negative, will order a Velcro wrist splint for support to be used for 2 weeks If her hand still hurts, could refer to hand therapy at [facility]. Major depressive disorder, narcolepsy and REM sleep disorder. Continue Adderall XR 30mg bid. Previously discussed designating a specific medical billing and coding specialist or try brand only since certain generics do not work as well for her (such as Mallinkrodt). If the pharmacy cannot guarantee an alternative generic, could consider increasing Adderall to 30 mg 3 times daily; however, this may worsen anxiety Continue duloxetine 60mg Melatonin at hs Abilify 10mg a day Clonazepam 1 mg at bedtime Continue Lorazepam 1 mg p.o. daily as needed, but continue to limit dosing She has the number for Crisis Continue with therapist Erasmo at [facility] Continue working with TABLE ASSEMBLER METAL Aixa Bonilla twice a week Migraines- Continue topamax 75mg bid. Avoid increase due to last labs indicating low bicarb Maxalt tabs 10mg BALANCE WEIGHER. Readdress efficacy next visit She can also use Excedrin prn BMP yearly Left parm pain and paresthesia-symptoms improved with gabapentin We will continue to encourage her to try to wean gabapentin as tolerated since her symptoms have resolved Consider pursuing the previously ordered cervical x-ray or EMG if symptoms escalate Excoriation disorder- Previously declined N acetyl cystiene from derm, due to concern about GI side effects Uses metronidazole and betamethasone cream when symptoms flare Michelle Shannon MD documented in this encounter Plan of Treatment Upcoming Encounters Date Type Department Care Team (Late st Contact Info) Description 06/08/2024 13:30 EDT Office Visit [facility] [address] [place] [address] Michelle Shannon MD [address] [place] [phone] documented as of this encounter Results * XR HAND RIGHT 3 OR MORE VIEWS (12/29/2021 13:30 EDT) Anatomical Region Laterality Modality Upper Extremities Right Computed Radio graphy 12/29/2021 14:3 1 EDT Impressions 12/29/2021 14:31 EDT Normal examination. Narrative 12/29/2021 14:31 EDT XR HAND RIGHT 3 OR MORE VIEWS ??12/29/2021 2:30 PM Clinical History/Comments: fall, with ongoing pain and dorsal hand eccymosis . R/o fx 3,4 or 5 metacarpals. Findings: z three-view right hand Findings: There is no evidence of fracture, dislocation or bony deformity. Procedure Note Álvaro Handy MD - 12/29/2021 XR HAND RIGHT 3 OR MORE VIEWS 12/29/2021 2:30 PM Clinical History/Comments: fall, with ongoing pain and dorsal hand eccymosis . R/o fx 3,4 or 5metacarpals. Findings: z three-view right hand Findings: There is no evidence of fracture, dislocation or bony deformity. IMPRESSION Normal examination. Michelle Shannon MD IMG DIAGNOSTIC I MAGING ORDERABLES documented in this encounter Visit Diagnoses Diagnosis Injury of ligament of right hand, subsequent encounter- Primary REM sleep behavior disorder Injury of ligament of right hand, subsequent encounter documented in this encounter Orders General Supply Count Last Ordered Date First Or dered Date WRIST SPLINT 1 09/28/2021 documented in this encounter Care Teams Plant Chief Relationship Specialty Start Date End Date Michelle Shannon MD [address] [place] [phone] PCP - General 09/08/11 documented as of this encounter
--- OUTSIDE RECORDS SUMMARY | 2024-04-28 15:53 | XMS_ITS | Encounter Summary ---
Author Organization [facility] Address [address] [place] [address] Care Team Providers Care Dietary Cook Name Role Phone Michelle Shannon MD Primary Care Provider + Reason for Visit * Reason Onset Date Comments Medications Refill 08/25/2021 Encounter Details Date Type Department Care Team (Late st Contact Info) Description 08/25/2021 Refill [facility] [address] [place] [phone] Janna Tamayo RN Medications Refill Social History Tobacco Use Types [...] by mouth daily with breakfast. 100 Tablet 08/25/2021 12/07/2021 documented in this encounter Miscellaneous Notes * Telephone Encounter - Janna Tamayo RN - 08/25/2021 1102 EST Refill request documented in this encounter Plan of Treatment Upcoming Encounters Date Type Department Care Team (Late st Contact Info) Description 06/08/2024 13:30 EDT Office Visit [facility] [address] [place], [place] [phone] Michelle Shannon MD [address] [place] [phone] documented as of this encounter Visit Diagnoses Not on filedocumented in this encounter Discontinued Medications Medication Sig Discontinue Reason Start Date End Da te ferrous gluconate (FERGON) 324 mg (38 mg iron) tablet Take 1 Tablet by mouth daily with breakfast. Reorder 04/17/2021 08/25/2021 documented as of this encounter Care Teams Dietary Cook Relationship Specialty Start Date End Date Michelle Shannon MD [address] [place] [phone] PCP - General 09/08/11 documented as of this encounter
--- OUTSIDE RECORDS SUMMARY | 2024-04-28 15:53 | XMS_ITS | Encounter Summary ---
Author Organization [facility] Address [address] [place] [address] Care Team Providers Care Parking Line Painter Name Role Phone Michelle Shannon MD Primary Care Provider + Reason for Referral * Radiology Services (Routine/Next Available) - Authorization Not Required Specialty Diagnoses / Procedures Referred By Contac t Referred To Contact Diagnoses Injury of ligament of right hand, subsequent encounter Procedures XR HAND RIGHT 3 OR MORE VIEWS Michelle Shannon MD [address] [place] [phone] [facility] Referral ID Status Reason Start Date Expiration Date Visits Requested Visits Authorized [id number] Authorization Not Required 09/28/2021 1 1 Reason for Visit * Radiology Services (Routine/Next Available) - Authorization Not Required Specialty Diagnoses / Procedures Referred By Contac t Referred To Contact Diagnoses Injury of ligament of right hand, subsequent encounter Procedures XR HAND RIGHT 3 OR MORE VIEWS Michelle Shannon MD [address] [place] [phone] [facility] Referral ID Status Reason Start Date Expiration Date Visits Requested Visits Authorized [id number] Authorization Not Required 09/28/2021 1 1 Encounter Details Date Type Department Care Team (Latest Contact Info) Description 12/29/2021 12:56 EDT - 12/29/2021 23:59 [address] En[address] [facility] [address] [place], [place] [phone] Injury of ligament of right hand, subsequent encounter Discharge Disposition: Home or Self Care Social [...] Max: 2 mg 60 Tablet 06/18/2021 03/31/2022 mupirocin (BACTROBAN) 2 % ointment Apply topically [...] Info) Description 06/08/2024 13:30 EDT Office Visit [facility] [address] [place] [phone] Michelle Shannon MD [address] [place] [phone] documented as of this encounter Procedures Procedure Name Priority Date/Time Associated Diagnosis Comments XR HAND RIGHT 3 OR MORE VIEWS Routine 12/29/2021 13:30 EDT Injury of ligament of right hand, subsequent encounter documented in this encounter Results * XR HAND RIGHT [...] hand, subsequent encounter documented in this encounter Care Teams Parking Line Painter Relationship Specialty Start Date End Date Michelle Shannon MD [address] [place] [phone] PCP - General 09/08/11 documented as of this encounter
--- OUTSIDE RECORDS SUMMARY | 2024-04-28 15:53 | XMS_ITS | Encounter Summary ---
Author Organization [facility] Address [address] [place] [address] Care Team Providers Care Inbound Sales Representative Name Role Phone Michelle Shannon MD Primary Care Provider + Reason for Visit * Reason Onset Date Comments Medications Refill 12/07/2021 Encounter Details Date Type Department Care Team (Late st Contact Info) Description 12/07/2021 Refill [facility] [address] [place] [phone] Michelle Shannon MD [address] [place] [phone] Medications Refill Social History Tobacco Use Types [...] Dispensed Refills Start Date End Da te melatonin 10 mg capsule Take 10 mg by mouth at bedtime. 100 capsule 2 12/07/2021 gabapentin (NEURONTIN) 300 mg capsule Take 1 capsule by mouth 3 times daily. 90 capsule 2 12/07/2021 12/28/2021 topiramate (TOPAMAX) 50 mg tablet TAKE 1 AND 1/2 TABLETS BY MOUTH TWICE DAILY 270 Tablet 1 12/07/2021 03/31/2022 ferrous gluconate (FERGON) 324 mg (38 mg iron) tablet Take 1 Tablet by mouth daily with breakfast. 100 Tablet 12/07/2021 02/02/2022 ARIPiprazole (ABILIFY) 10 mg tablet Take 1 Tablet by mouth at bedtime. 90 Tablet 2 12/07/2021 05/25/2022 documented in this encounter Miscellaneous Notes * Telephone Encounter - Mandi Leon - 12/07/2021 1120 EDT refills documented in this encounter Plan of Treatment Upcoming Encounters Date Type Department Care Team (Late st Contact Info) Description 06/08/2024 13:30 EDT Office Visit [facility], [facility] [address] [place], [place] [phone] Michelle Shannon MD [address] [place] [phone] documented as of this encounter Visit Diagnoses Not on filedocumented in this encounter Discontinued Medications Medication Sig Discontinue Reason Start Date End Da te ARIPiprazole (ABILIFY) 10 mg tablet TAKE 1 TABLET BY MOUTH AT BEDTIME Reorder 06/08/2021 12/07/2021 melatonin 10 mg capsule Take 10 mg by mouth at bedtime. Reorder 05/06/2021 12/07/2021 ferrous gluconate (FERGON) 324 mg (38 mg iron) tablet Take 1 Tablet by mouth daily with breakfast. Reorder 08/25/2021 12/07/2021 topiramate (TOPAMAX) 50 mg tablet TAKE 1 AND 1/2 TABLETS BY MOUTH TWICE DAILY Reorder 10/05/2021 12/07/2021 gabapentin (NEURONTIN) 300 mg capsule Take 1 capsule by mouth 3 times daily. Reorder 09/09/2021 12/07/2021 documented as of this encounter Care Teams Inbound Sales Representative Relationship Specialty Start Date End Date Michelle Shannon MD [address] [place] [phone] PCP - General 09/08/11 documented as of this encounter
--- OUTSIDE RECORDS SUMMARY | 2024-04-28 15:53 | XMS_ITS | Encounter Summary ---
Author Organization [facility] Address [address] [place] [address] Care Team Providers Care Realtime Court Reporter Name Role Phone Michelle Shannon MD Primary Care Provider + Reason for Visit * Reason Onset Date Comments Medications Refill 05/26/2021 Encounter Details Date Type Department Care Team ([facility] Contact Info) Description 05/26/2021 Refill [facility] [address] [place] [address] [phone] Michelle Shannon MD [address] [place] [address] [phone] Medications Refill Social History Tobacco Use Types [...] daily. Daily Max: 2 Capsules 56 capsule 05/26/2021 06/26/2021 documented in this encounter Plan of Treatment Upcoming Encounters Date Type Department Care Team ([facility] st Contact Info) Description 06/08/2024 13:30 EDT Office Visit [facility] [address] [place], [place] [phone] Michelle Shannon MD [address] [place] [phone] documented as of this encounter Visit Diagnoses Not on filedocumented in this encounter Discontinued Medications Medication Sig Discontinue Reason Start Date End Da te dextroamphetamine-amphe tamine (ADDERALL XR) 30 mg XR capsule Take 1 capsule by mouth 2 times daily. Daily Max: 2 Capsules Reorder 04/13/2021 05/26/2021 documented as of this encounter Care Teams Realtime Court Reporter Relationship Specialty Start Date End Date Michelle Shannon MD [address] [place] [phone] PCP - General 09/08/11 documented as of this encounter
--- OUTSIDE RECORDS SUMMARY | 2024-04-28 15:53 | XMS_ITS | Encounter Summary ---
Author Organization [facility] Address [address] [place] [address] Care Team Providers Care Warehouse And Receiving Supervisor Name Role Phone Michelle Shannon MD Primary Care Provider + Encounter Details Date Type Department Care Team (Late st Contact Info) Description 07/25/2021 Orders Only [facility] [address] [place] [address] Yenifer Rolon, UTILITY SALES AND SERVICE MANAGER [address] [place] [phone] Urinary urgency (Primary Dx) Social History Tobacco Use Types [...] Dispensed Refills Start Date End Da te sulfamethoxazole-trimetho prim (BACTRIM/CO-TRIMOXAZOLE DS) 800-160 mg per tablet Take 1 Tablet by mouth every 12 hours for 3 days. 6 Tablet 07/27/2021 07/30/2021 documented in this encounter Progress Notes * Yenifer Rolon, UTILITY SALES AND SERVICE MANAGER - 07/25/2021 1133 EDT Please let her know that her her urine was positive for a UTI and Genna called in bactrim BID x 3 days. Increase fluids. Thanks Yenifer Rolon APRN * Mandi Leon - 07/25/2021 1133 EDT LM with Yenifer Rolon's recommendations. Mandi Leon MA documented in this encounter Plan of Treatment Upcoming Encounters Date Type Department Care Team (Late st Contact Info) Description 06/08/2024 13:30 EDT Office Visit [facility], [address] [facility] [address] [place] [address] Michelle Shannon MD [address] [place] [phone] documented as of this encounter Procedures Procedure Name Priority Date/Time Associated Diagnosis Comments URINE CHEMICAL (DIP) & SEDIMENT (MICRO) WITH REFLEX TO CULTURE Routine 07/25/2021 10:00 EDT Urinary urgency BACTERIAL CULTURE, URINE Today 07/25/2021 10:00 EDT Urinary urgency documented in this encounter Results * (ABNORMAL) BACTERIAL CULTURE, URINE (07/25/2021 10:00 EDT) Organism ID Greater than 100,000 CFU/ml Escherichia coli(A) VITEK SUSCEPTIBILITY 07/27/2021 8:28 EDT [facility] Comment: Cefazolin susceptibility results can be used to predict susceptibility results for the following oral cephalosporins when used for therapy of uncomplicated UTIs due to E.coli, K.pneumoniae, and P.mirabilis: cefaclor, cefdinir, cefpodoxime, cefprozil, cefuroxime, cephalexin, loracarbef. Cefdinir, cefpodoxime, and cefuroxime may be tested individually because some isolates may be susceptibile to these agents while testing resistance to cefazolin. Please note that only cefpodoxime and cephalexin are on the [facility] inpatient formulary. Urine URINE SPECIMEN COLLECTION, CLEAN CATCH / Unknown Urine Collect / Unknown 07/25/2021 10:00 EDT 07/25/2021 12:04 EDT Narrative Organism Antibiotic Method Susceptibility Escherichia coli Ampicillin VITEK SUSCEPTIBILITY 8 ug/mL: Susceptible Escherichia coli Cefazolin VITEK SUSCEPTIBILITY <=4 ug/mL: Susceptible Escherichia coli Ceftriaxone VITEK SUSCEPTIBILITY <=1 ug/mL: Susceptible Escherichia coli Ciprofloxacin VITEK SUSCEPTIBILITY <=0.25 ug/mL: Susceptible Escherichia coli Ertapenem VITEK SUSCEPTIBILITY <=0.5 ug/mL: Susceptible Escherichia coli Meropenem VITEK SUSCEPTIBILITY <=0.25 ug/mL: Susceptible Escherichia coli Nitrofurantoin VITEK SUSCEPTIBILITY <=16 ug/mL: Susceptible Escherichia coli Piperacillin Tazobactam VITEK SUSCEPT IBILITY <=4 ug/mL: Susceptible Escherichia coli Trimethoprim-Sulfame thox azole VITEK SUSCEPTIBILITY <=20 ug/mL: Susceptible Yenifer Rolon UTILITY SALES AND SERVICE MANAGER MICROBIOLOGY - GENER AL ORDERABLES [facility] [address] [place] [address] * (ABNORMAL) URINE CHEMICAL (DIP) & SEDIMENT (MICRO) WITH REFLEX TO CULTURE (07/25/2021 10:00 EDT) Color UA Yellow Colorless, Yellow 07/25/2021 12:04 EDT [facility] Clarity UA Hazy(A) Clear 07/25/2021 12:04 EDT [facility] Glucose UA Negative Negative 07/25/2021 12:04 EDT [facility] Bilirubin UA Negative Negative 07/25/2021 12:04 T [facility] Ketones UA Negative Negative 07/25/2021 12:04 EDT [facility] Specific Bryant, Urine 1.030 1.001 - 1.035 07/25/2021 12:04 EDT [facility] Blood UA Negative Negative 07/25/2021 12:04 [facility] Urobilinogen UA Normal Normal mg/dL 07/25/2021 12:04 [facility] Nitrite UA Positive(A) Negative 07/25/2021 12:04 [facility] Leukocyte Esterase UA 3+(A) Negative 07/25/2021 12:04 [facility] Protein UA 1+(A) Negative 07/25/2021 12:04 [facility] pH, UA 6.0 4.6 - 8.0 07/25/2021 12:04 [facility] Urine RBC Count, Auto 0 - 2 0 - 2 Cells/HPF 07/25/2021 12:04 [facility] Urine WBC Count, Auto >50(A) 0 - 3 Cells/HPF 07/25/2021 12:04 [facility] Urine Squamous Count, Auto Many(A) None Seen Cells/HPF 07/25/2021 12:04 [facility] Urine Hyaline Cast Count, Auto <=10 <=10 Casts/LPF 07/25/2021 12:04 [facility] Urine Bacteria Count, Auto Moderate(A) None Seen Bacteria/HP F 07/25/2021 12:04 [facility] Urine URINE SPECIMEN COLLECTION, CLEAN CATCH / Unknown Urine Collect / Unknown 07/25/2021 10:00 EDT 07/25/2021 11:34 T Narrative [facility] - 07/25/2021 12:04 EDT A Urine Culture test has been reflexively ordered based on result criteria from the Urine Sediment Analysis. Urine Sediment Analysis results are unreliable on urines that are unrefrigerated for >2 hrs or refrigerated >8 hrs. Yenifer Rolon APRN URINALYSIS ORDERABLE S [facility] [address] [place] [address] documented in this encounter Visit Diagnoses Diagnosis Urinary urgency- Primary Urgency of urination documented in this encounter Care Teams Warehouse And Receiving Supervisor Relationship Specialty Start Date End Date Michelle Shannon MD [address] [place] [address] [phone] PCP - General 09/08/11 documented as of this encounter
--- OUTSIDE RECORDS SUMMARY | 2024-04-28 15:53 | XMS_ITS | Encounter Summary ---
Author Organization [facility] Address [address] [place] [address] Care Team Providers Care Stuffed Casing Tier Name Role Phone Michelle Shannon MD Primary Care Provider + Reason for Referral * Radiology Services (Routine/Next Available) - Authorization Not Required Specialty Diagnoses / Procedures Referred By Contac t Referred To Contact Diagnoses Right wrist pain Procedures XR WRIST RIGHT 3 OR MORE VIEWS Michelle Shannon MD [address] [place] [phone] [facility] Referral ID Status Reason Start Date Expiration Date Visits Requested Visits Authorized [id number] Authorization Not Required 12/28/2021 1 1 Reason for Visit * Radiology Services (Routine/Next Available) - Authorization Not Required Specialty Diagnoses / Procedures Referred By Thelma long Referred To Contact Diagnoses Right wrist pain Procedures XR WRIST RIGHT 3 OR MORE VIEWS Michelle Shannon MD [address] [place] [phone] [facility] Referral ID Status Reason Start Date Expiration Date Visits Requested Visits Authorized [id number] Authorization Not Required 12/28/2021 1 1 Encounter Details Date Type Department Care Team (Latest Contact Info) Description 12/29/2021 12:56 EDT - 12/29/2021 23:59 EDT [address] Encounter [address] [facility] [address] [place] [address] Right wrist pain Discharge Disposition: Home or Self Care [...] Info) Description 06/08/2024 13:30 EDT Office Visit [facility] [address] [place] [address] Michelle Shannon MD [address] [place] [phone] documented as of this encounter Procedures Procedure Name Priority Date/Time Associated Diagnosis Comments XR WRIST RIGHT 3 OR MORE VIEWS Routine 12/29/2021 13:30 EDT Right wrist pain documented in this encounter Results * XR WRIST RIGHT 3 OR MORE VIEWS (12/29/2021 13:30 EDT) Anatomical Region Laterality Modality Upper Extremities Right Computed Radio graphy 12/29/2021 14:3 0 EDT Impressions 12/29/2021 14:30 EDT Normal examination. Narrative 12/29/2021 14:30 EDT XR WRIST RIGHT 3 OR MORE VIEWS ??12/29/2021 2:15 PM Clinical History/Comments: s/p fall right wrist pain r/o scaphoid fx. Findings: 4 view right wrist Findings: There is no evidence of fracture, dislocation or bony deformity. Procedure Note Álvaro Handy MD - 12/29/2021 XR WRIST RIGHT 3 OR MORE VIEWS 12/29/2021 2:15 PM Clinical History/Comments: s/p fall right wrist pain r/o scaphoid fx. Findings: 4 view right wrist Findings: There is no evidence of fracture, dislocation or bony deformity. IMPRESSION Normal examination. Michelle Shannon MD IMG DIAGNOSTIC I MAGING ORDERABLES documented in this encounter Visit Diagnoses Diagnosis Right wrist pain Pain in joint, forearm documented in this encounter Care Teams Stuffed Casing Tier Relationship Specialty Start Date End Date Michelle Shannon MD [address] [place] [phone] PCP - General 09/08/11 documented as of this encounter
--- OUTSIDE RECORDS SUMMARY | 2024-04-28 15:53 | XMS_ITS | Encounter Summary ---
Author Organization [facility] Address [address] [place] [address] Care Team Providers Care Wing Mailer Machine Operator Name Role Phone Michelle Shannon MD Primary Care Provider + Reason for Visit * Reason Onset Date Comments Medications Refill 12/07/2021 Encounter Details Date Type Department Care Team (Late st Contact Info) Description 12/07/2021 Telephone [facility] [address] [place], [place] [phone] Curtis Casillas RN Medications Refill Social History Tobacco Use [...] Telephone Encounter - Curtis Casillas RN - 12/07/2021 1621 EDT Pt called requesting early adderrall refill for one months supply- she is traveling to [facility] Tuesday and states she will run out of her current supply on her trip. [facility]. CURTIS CASILLAS RN documented in this encounter Plan of Treatment Upcoming Encounters Date Type Department Care Team (Late st Contact Info) Description 06/08/2024 13:30 EDT Office Visit [facility] [address] [place], [place] [phone] Michelle Shannon MD [address] [place] [phone] documented as of this encounter Visit Diagnoses Not on filedocumented in this encounter Care Teams Wing Mailer Machine Operator Relationship Specialty Start Date End Date Michelle Shannon MD [address] [place] [phone] PCP - General 09/08/11 documented as of this encounter
--- OUTSIDE RECORDS SUMMARY | 2024-04-28 15:53 | XMS_ITS | Encounter Summary ---
Author Organization [facility] Address [address] [place] [address] Care Team Providers Care Inspector Welded Parts Name Role Phone Michelle Shannon MD Primary Care Provider + Reason for Visit * Reason Onset Date Comments Medications Refill 10/07/2021 Encounter Details Date Type Department Care Team (Late st Contact Info) Description 10/07/2021 Refill [facility] [address] [place] [phone] Janna Tamayo, JOSEFINA Medications Refill Social History [...] 13:05 EST documented as of this encounter Ordered Prescriptions Prescription Sig Dispensed Refills Start Date End Da te dextroamphetamine-amphe tamine (ADDERALL XR) 30 mg XR capsule Take 1 capsule by mouth 2 times daily. Daily Max: 2 Capsules 56 capsule 10/07/2021 11/17/2021 documented in this encounter Miscellaneous Notes * Telephone Encounter - Janna Tamayo RN - 10/07/2021 1327 EST Refill request documented in this encounter Plan of Treatment Upcoming Encounters Date Type Department Care Team (Late st Contact Info) Description 06/08/2024 13:30 EDT Office Visit [facility] [address] [place], [place] [phone] Michelle Shannon MD [address] [place] [phone] documented as of this encounter Visit Diagnoses Not on filedocumented in this encounter Discontinued Medications Medication Sig Discontinue Reason Start Date End Da te dextroamphetamine-amphe tamine (ADDERALL XR) 30 mg XR capsule Take 1 capsule by mouth 2 times daily. Daily Max: 2 Capsules Reorder 09/04/2021 10/07/2021 documented as of this encounter Care Teams Inspector Welded Parts Relationship Specialty Start Date End Date Michelle Shannon MD [address] [place] [phone] PCP - General 09/08/11 documented as of this encounter
--- OUTSIDE RECORDS SUMMARY | 2024-04-28 15:53 | XMS_ITS | Encounter Summary ---
Author Organization [facility] Address [address] [place] [address] Care Team Providers Care Burrer Machine Name Role Phone Michelle Shannon MD Primary Care Provider + Reason for Visit * Reason Comments Other Encounter Details Date Type Department Care Team (Late st Contact Info) Description 10/01/2021 Refill [facility] [address] [place] [phone] Michelle Shannon MD [address] [place] [phone] Other Social History Tobacco Use Types [...] AT BEDTIME. MAX: 1 MG 28 Tablet 10/02/2021 11/17/2021 topiramate (TOPAMAX) 50 mg tablet TAKE 1 AND 1/2 TABLETS BY MOUTH TWICE DAILY 270 Tablet 1 10/02/2021 10/05/2021 documented in this encounter Plan of Treatment Upcoming Encounters Date Type Department Care Team (Late st Contact Info) Description 06/08/2024 13:30 EDT Office Visit [facility] [address] [place] [address] Michelle Shannon MD [address] [place] [phone] documented as of this encounter Visit Diagnoses Not on filedocumented in this encounter Discontinued Medications Medication Sig Discontinue Reason Start Date End Da te topiramate (TOPAMAX) 50 mg tablet Take 1.5 Tabs by mouth 2 times daily. 02/06/2021 10/02/2021 clonazePAM (KLONOPIN) 1 mg tablet TAKE 1 TABLET BY MOUTH DAILY AT BEDTIME. MAX: 1 MG 08/19/2021 10/02/2021 documented as of this encounter Care Teams Burrer Machine Relationship Specialty Start Date End Date Michelle Shannon MD [address] [place] [phone] PCP - General 09/08/11 documented as of this encounter
--- OUTSIDE RECORDS SUMMARY | 2024-04-28 15:53 | XMS_ITS | Encounter Summary ---
Author Organization [facility] Address [address] [place] [address] Care Team Providers Care Data Management Specialist Name Role Phone Michelle Shannon MD Primary Care Provider + Reason for Visit * Reason Onset Date Comments Emotional Challenges 06/18/2021 Encounter Details Date Type Department Care Team (Late st Contact Info) Description 06/18/2021 Telephone [facility] [address] [place], [place] [phone] Curtis Casillas RN Emotional Challenges Social History Tobacco Use Types Packs/Day Years [...] Max: 2 mg 60 Tablet 06/18/2021 03/31/2022 LORazepam (ATIVAN) 1 mg tablet Take 1 Tablet by mouth 2 times daily. Daily Max: 2 mg 60 Tablet 06/18/2021 06/18/2021 documented in this encounter Miscellaneous Notes * Telephone Encounter - Yenifer Rolon, INSULATOR APPRENTICE - 06/18/2021 1232 EDT Reviewed notes. It appears she takes clonazepam daily and lorazepam prn. Ok to refill. 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 Pt is taking clonazepam now, however she is requesting a refill of Ativan today. I told her I would update Dr. Shannon that she called with this information. CURTIS CASILLAS, RN documented in this encounter Plan of Treatment Upcoming Encounters Date Type Department Care Team (Late st Contact Info) Description 06/08/2024 13:30 EDT Office Visit [facility] [address] [place], [place] [phone] Michelle Shannon MD [address] [place] [phone] documented as of this encounter Visit Diagnoses Not on filedocumented in this encounter Discontinued Medications Medication Sig Discontinue Reason Start Date End Da te LORazepam (ATIVAN) 1 mg tablet Take 1 Tablet by mouth 2 times daily. Daily Max: 2 mg Reorder 04/17/2021 06/18/2021 LORazepam (ATIVAN) 1 mg tablet Take 1 Tablet by mouth 2 times daily. Daily Max: 2 mg Reorder 06/18/2021 06/18/2021 documented as of this encounter Care Teams Data Management Specialist Relationship Specialty Start Date End Date Michelle Shannon MD [address] [place] [phone] PCP - General 09/08/11 documented as of this encounter
--- OUTSIDE RECORDS SUMMARY | 2024-04-28 15:53 | XMS_ITS | Encounter Summary ---
Author Organization [facility] Address [address] [place] [address] Care Team Providers Care Exhibitor Sales Name Role Phone Michelle Shannon MD Primary Care Provider + Encounter Details Date Type Department Care Team (Late st Contact Info) Description 12/09/2021 Orders Only [facility] [address] [place], [place] [phone] Romeo [facility] MD [address] [place] [phone] Social History Tobacco Use Types Packs/Day Years [...] Max: 2 Capsules 56 capsule 12/09/2021 02/02/2022 documented in this encounter Plan of Treatment Upcoming Encounters Date Type Department Care Team (Late st Contact Info) Description 06/08/2024 13:30 EDT Office Visit [facility] [address] [place], [place] [phone] Michelle Shannon MD [address] [place] [phone] documented as of this encounter Visit Diagnoses Not on filedocumented in this encounter Discontinued Medications Medication Sig Discontinue Reason Start Date End Da te dextroamphetamine-amphe tamine (ADDERALL XR) 30 mg XR capsule Take 1 capsule by mouth 2 times daily. Daily Max: 2 Capsules Reorder 11/17/2021 12/09/2021 documented as of this encounter Care Teams Exhibitor Sales Relationship Specialty Start Date End Date Michelle Shannon MD [address] [place] [phone] PCP - General 09/08/11 documented as of this encounter
--- OUTSIDE RECORDS SUMMARY | 2024-04-28 15:53 | XMS_ITS | Encounter Summary ---
Author Organization [facility] Address [address] [place] [address] Care Team Providers Care Cereal Miller Name Role Phone Michelle Shannon MD Primary Care Provider + Reason for Visit * Reason Onset Date Comments Medications Refill 09/09/2021 Encounter Details Date Type Department Care Team (Late st Contact Info) Description 09/09/2021 Refill [facility] [address] [place], [place] [phone] Janna Tamayo, RN Medications Refill Social History Tobacco Use [...] mouth 3 times daily. 90 capsule 2 09/09/2021 12/07/2021 documented in this encounter Miscellaneous Notes * Telephone Encounter - Janna Tamayo RN - 09/09/2021 6309 EST Refill request documented in this encounter Plan of Treatment Upcoming Encounters Date Type Department Care Team (Late st Contact Info) Description 06/08/2024 13:30 EDT Office Visit [facility] [address] [place], [place] [phone] Michelle Shannon MD [address] [place] [phone] documented as of this encounter Visit Diagnoses Not on filedocumented in this encounter Discontinued Medications Medication Sig Discontinue Reason Start Date End Da te gabapentin (NEURONTIN) 300 mg capsule Take 1 capsule by mouth 3 times daily. Reorder 04/15/2021 09/09/2021 documented as of this encounter Care Teams Cereal Miller Relationship Specialty Start Date End Date Michelle Shannon MD [address] [place] [phone] PCP - General 09/08/11 documented as of this encounter
--- OUTSIDE RECORDS SUMMARY | 2024-04-28 15:53 | XMS_ITS | Encounter Summary ---
Author Organization [facility] Address [address] [place] [address] Care Team Providers Care Expressive Art Therapist Name Role Phone Michelle Shannon MD Primary Care Provider + Reason for Visit * Reason Comments Back Pain Encounter Details Date Type Department Care Team (Late st Contact Info) Description 07/31/2021 14:00 EDT Office Visit [facility] [address] [place], [place] [phone] Yenifer Rolon, ALTERNATIVE EDUCATION TEACHER [address] [place] [phone] Acute right-sided low back pain without sciatica (Primary Dx) Social History Tobacco Use Types [...] Reading Time Taken Comments Blood Pressure 110/70 07/31/2021 1407 EDT Pulse 80 07/31/2021 1407 EDT Temperature 36.8 ??C (98.2 ??F) 07/31/2021 1407 EDT Respiratory Rate - - Oxygen Saturation - - Inhaled Oxygen Concentration - - Weight - - Height - - Body Mass Index - - documented in this encounter Ordered Prescriptions Prescription Sig Dispensed Refills Start Date End Da te cyclobenzaprine (FLEXERIL) 10 mg tablet Take 1 Tablet by mouth every 8 hours as needed for Muscle Spasms. 15 Tablet 07/31/2021 02/02/2022 documented in this encounter Progress Notes * Yenifer Rolon, ALTERNATIVE EDUCATION TEACHER - 07/31/2021 1400 EDT Subjective: Patient ID: Jane Blair is an 46 y.o. female. No chief complaint on file. HPI Jane presents telling me she has right kidney pain. I saw her on 07/13/21 with complaints of one month of urinary urgency. Her urine culture was positive for e coli and she was treated with 3 days of bactrim DS, which was susceptible per the sensitivity report. She tells me she completed the antibiotic last night or this morning. Three days ago she developed 10/10 right sided back pain which she says is constant. The pain is worse with twisting otherwise it is not exacerbated with movement. She has no associated fevers or n/v. Her urinary symptoms resolved and she denies dysuria and hematuria. No known injury of heavy lifting. Jane is in tears as she feels confident the infection has moved to her kidneys because she waited to long to treat it. Patient Active Problem List Diagnosis ??? Narcolepsy without cataplexy ??? REM sleep behavior disorder ??? Migraine with aura ??? Episodic mood disorder ([facility]) ([facility]) ??? MDD (major depressive disorder), recurrent episode, moderate ([facility]) ??? GERD without esophagitis ??? Vitamin D [...] 0 ??? ARIPiprazole (ABILIFY) 10 mg tablet TAKE 1 TABLET BY MOUTH AT BEDTIME 90 Tablet 2 ??? kdutyct-aymwddzyjdzrj-vqcbxzco (EXCEDRIN MIGRAINE) 250-250-65 mg per tablet Take 1 Tab by mouthevery 6 hours as needed. Indications: MIGRAINE ??? betamethasone dipropionate 0.05 % lotion Apply topically 2 times daily. Twice daily as needed for itch. Do not let it drip onto the face 60 mL 3 ??? cephalexin (KEFLEX) 500 mg capsule Take 1 Cap by mouth every 6 hours. (Patient not taking: Reported on 06/26/2021) 20 Cap 0 ??? cholecalciferol, Vitamin D3, 1,000 unit tablet Take 1,000 Units by mouth daily. ??? clonazePAM (KLONOPIN) 1 mg tablet TAKE 1 TABLET BY MOUTH DAILY AT BEDTIME. MAX: 1 MG 28 Tablet 1 ??? dextroamphetamine-amphetamine (ADDERALL XR) 30 mg XR capsule Take 1 capsule by mouth 2 times daily. Daily Max: 2 Capsules 56 capsule 0 ??? DULoxetine (CYMBALTA) 60 mg capsule TAKE 1 CAPSULE BY MOUTH DAILY 90 capsule 1 ??? ferrous gluconate (FERGON) [...] loratadine (CLARITIN) 10 mg tablet Take 1 Tab by mouth daily. 100 Tab 1 ??? LORazepam (ATIVAN) 1 mg tablet [...] by mouth 2 times daily. ??? rizatriptan (MAXALT-PARALEGAL) 10 mg disintegrating tablet Take 1 Tablet by mouth as needed for Migraine. 10 Tablet 2 ??? topiramate (TOPAMAX) 50 mg tablet Take 1.5 Tabs by mouth 2 times daily. 270 Tab 1 ??? tretinoin (RETIN-A) 0.025 % cream Apply topically to affected area at bedtime. Stat twice weekly, pea sized amount to the whole face. 45 g 6 No current facility-administered medications on file prior to visit. No Known Allergies Review of Systems Constitutional: Negative for chills and fever. Genitourinary: Negative for dysuria, frequency, hematuria and urgency. Musculoskeletal: Positive for back pain. - See HPI Objective: BP 110/70 Pulse 80 Temp 36.8 ??C (98.2 ??F) (Tympanic) Physical Exam Constitutional: General: She is not in acute distress. Appearance: She is well-developed and well-nourished. Musculoskeletal: Lumbar back: Tenderness present. No swelling or bony tenderness. Normal range of motion. UA: Negative Assessment: Right low back pain Plan: Diagnoses and all orders for this visit: Acute right-sided low back pain without sciatica - CT ABDOMEN PELVIS WO CONTRAST Other orders - cyclobenzaprine (FLEXERIL) 10 mg tablet; Take 1 Tablet by mouth every 8 hours as needed for Muscle Spasms. Right low back pain- I suspect this is muscular pain. She is tender over her right paraspinal muscles in her low back, Iattempted to reassure that her the area she is tender in is not over her kidney. Her UA is now negative/normal after completing a 3 day course of bactrim DS which was susceptible to e coli. It is doubtful she has pyelonephritis as her UTI was appropriately treated and she lacks fevers, chills, n/v,CVA tenderness, etc. She also has no hematuria on UA today so unlikely nephrolithiasis. I recommended a trial of a muscle relaxer, will prescribe flexeril 10mg TID prn. Genna advised she avoid aggravating movements and apply heat/ice. She would like urgent imaging of her kidneys. We discussed that I can order a CT scan however given it is Tuesday afternoon the earliest it would be performed is next week, we discussed her other option would be to be evaluated at the ED, which she declines. Will order the CT of her abdomen and pelvis urgently and if the muscle relaxer helps the pain to subside or her symptoms resolve she can cancel it. I also reviewed symptoms that would warrant ED evaluation over the weekend; fevers, vomiting, increasing pain. Will follow up by phone next week, sooner prn. Yenifer Rolon APRN documented in this encounter Plan of Treatment Upcoming Encounters Date Type Department Care Team (Late st Contact Info) Description 06/08/2024 13:30 EDT Office Visit [facility] [address] [facility] [address] [place], [place] [phone] Michelle Shannon MD [address] [place] [phone] documented as of this encounter Visit Diagnoses Diagnosis Acute right-sided low back pain without sciatica- Primary documented in this encounter Discontinued Medications Medication Sig Discontinue Reason Start Date End Da te cephalexin (KEFLEX) 500 mg capsule Take 1 Cap by mouth every 6 hours. 02/25/2021 07/31/2021 documented as of this encounter Care Teams Expressive Art Therapist Relationship Specialty Start Date End Date Michelle Shannon MD [address] [place] [address] [phone] PCP - General 09/08/11 documented as of this encounter
--- OUTSIDE RECORDS SUMMARY | 2024-04-28 15:53 | XMS_ITS | Encounter Summary ---
Author Organization [facility] Address [address] [place] [address] Care Team Providers Care Director Women Name Role Phone Michelle Shannon MD Primary Care Provider + Reason for Visit * Reason Onset Date Comments Medications Refill 10/07/2021 Encounter Details Date Type Department Care Team (Late st Contact Info) Description 10/07/2021 Refill [facility] [address] [place] [phone] Janna Tamayo, RN Medications Refill Social History [...] mouth daily. 100 Tablet 1 10/07/2021 01/24/2023 documented in this encounter Miscellaneous Notes * Telephone Encounter - Janna Tamayo, RN - 10/07/2021 1457 EST Refill request documented in this encounter Plan of Treatment Upcoming Encounters Date Type Department Care Team (Late st Contact Info) Description 06/08/2024 13:30 EDT Office Visit [facility] [address] [place], [place] [phone] Michelle Shannon MD [address] [place] [address] [phone] documented as of this encounter Visit Diagnoses Not on filedocumented in this encounter Discontinued Medications Medication Sig Discontinue Reason Start Date End Da te loratadine (CLARITIN) 10 mg tablet Take 1 Tab by mouth daily. Reorder 09/16/2017 10/07/2021 documented as of this encounter Care Teams Director Women Relationship Specialty Start Date End Date Michelle Shannon MD [address] [place] [address] [phone] PCP - General 09/08/11 documented as of this encounter
--- OUTSIDE RECORDS SUMMARY | 2024-04-28 15:53 | XMS_ITS | Encounter Summary ---
Author Organization [facility] Address [address] [place] [address] Care Team Providers Care Photovoltaic Panel Installer Name Role Phone Michelle Shannon MD Primary Care Provider + Reason for Visit * Reason Comments Urine Change Encounter Details Date Type Department Care Team (Late st Contact Info) Description 07/13/2021 9:00 EDT Office Visit [facility] [address] [place], [place] [phone] Yenifer Rolon, STRAIGHT EDGER [address] [place] [phone] Urinary urgency (Primary Dx) Social [...] Sign Reading Time Taken Comments Blood Pressure 100/70 07/13/2021 0918 EDT Pulse - - Temperature - - Respiratory Rate - - Oxygen Saturation - - Inhaled Oxygen Concentration - - Weight - - Height - - Body Mass Index - - documented in this encounter Progress Notes * Yenifer Rolon, STRAIGHT EDGER - 07/13/2021 0950 EDT Subjective: Patient ID: Jane Blair is an 46 y.o. female. Chief Complaint Patient presents with ??? Urine Change HPI Jane presents reporting one month of urinary urgency and difficulty holding my urine. She has hadepisodes of urinary incontinence if she cannot get to the bathroom quickly enough. She denies dysuria, frequency, and hematuria. She has no vaginal discharge or pruritus. She has no history of a UTI.She recently started gabapentin, otherwise no change in medications. No change in caffeine or alcohol intake. Patient Active Problem List Diagnosis ??? Narcolepsy [...] 2 weeks then increase to 1200mg twice [id number] Cap 3 ??? adapalene 0.3 % gel [...] MOUTH AT BEDTIME 90 Tablet 2 ??? xaobjks-mjzfqatfwlzuq-mgvsuuft (EXCEDRIN MIGRAINE) 250-250-65 mg per tablet Take [...] by mouth 2 times daily. ??? rizatriptan (MAXALT-HEALTH DATA ADMINISTRATOR) 10 mg disintegrating tablet Take 1 Tablet [...] visit. No Known Allergies Review of Systems Genitourinary: Positive for urgency. Negative for dysuria, flank pain, frequency and hematuria. - See HPI Objective: BP 100/70 Physical Exam Constitutional: General: She is not in acute distress. Appearance: She is well-developed and well-nourished. Neurological: Mental Status: She is alert and oriented to person, place, and time. Assessment: Urgency urinary incontinence Plan: Jane was seen today for urine change. Diagnoses and all orders for this visit: Urinary urgency - URINE CHEMICAL (DIP) & SEDIMENT (MICRO) WITH REFLEX TO CULTURE; Future Urgency urinary incontinence: Check UA for UTI or signs of nephrolithiasis, unfortunately she was not able to leave a sample today so future UA with reflex if indicated were ordered We discussed lifestyle and dietary changes. Weight loss may help with symptoms If UA is negative, would recommend a referral for pelvic floor PT Yenifer Rolon APRN documented in this encounter Plan of Treatment Upcoming Encounters Date Type Department Care Team (Late st Contact Info) Description 06/08/2024 13:30 EDT Office Visit [facility] [address] [place] [address] Michelle Shannon MD [address] [place] [phone] documented as of this encounter Results * (ABNORMAL) URINE CHEMICAL (DIP) & SEDIMENT (MICRO) WITH REFLEX TO CULTURE (07/25/2021 10:00 EDT) Color UA Yellow Colorless, Yellow 07/25/2021 12:04 [facility] Clarity UA Hazy(A) Clear 07/25/2021 12:04 [facility] Glucose UA Negative Negative 07/25/2021 12:04 [facility] Bilirubin UA Negative Negative 07/25/2021 12:04 [facility] Ketones UA Negative Negative 07/25/2021 12:04 [facility] Specific [place], Urine 1.030 1.001 - 1.035 07/25/2021 12:04 [facility] Blood UA Negative Negative 07/25/2021 12:04 [facility] Urobilinogen UA Normal Normal mg/dL 07/25/2021 12:04 [facility] Nitrite UA Positive(A) Negative 07/25/2021 12:04 [facility] Leukocyte Esterase UA 3+(A) Negative 07/25/2021 12:04 [facility] Protein UA 1+(A) Negative 07/25/2021 12:04 T [facility] pH, UA 6.0 4.6 - 8.0 07/25/2021 12:04 [facility] Urine RBC Count, Auto 0 - 2 0 - 2 Cells/HPF 07/25/2021 12:04 T [facility] Urine WBC Count, Auto >50(A) 0 - 3 Cells/HPF 07/25/2021 12:04 T [facility] Urine Squamous Count, Auto Many(A) None Seen Cells/HPF 07/25/2021 12:04 T [facility] Urine Hyaline Cast Count, Auto <=10 <=10 Casts/LPF 07/25/2021 12:04 [facility] Urine Bacteria Count, Auto Moderate(A) None Seen Bacteria/HP F 07/25/2021 12:04 [facility] Urine URINE SPECIMEN COLLECTION, CLEAN CATCH / Unknown Urine Collect / Unknown 07/25/2021 10:00 EDT 07/25/2021 11:34 EDT Narrative [facility] - 07/25/2021 12:04 EDT A Urine Culture test has been reflexively ordered based on result criteria from the Urine Sediment Analysis. Urine Sediment Analysis results are unreliable on urines that are unrefrigerated for >2 hrs or refrigerated >8 hrs. Yenifer Rolon APRN URINALYSIS ORDERABLE S Performing Organization Address City/State/[facility] Co de Phone Number [facility] [address] [place] [address] documented in this encounter Visit Diagnoses Diagnosis Urinary urgency- Primary Urgency of urination documented in this encounter Care Teams Photovoltaic Panel Installer Relationship Specialty Start Date End Date Michelle Shannon MD [address] [place] [address] [phone] PCP - General 09/08/11 documented as of this encounter
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
--- OUTSIDE RECORDS SUMMARY | 2024-04-28 15:53 | XMS_ITS | Encounter Summary ---
Author Organization [facility] Address [address] [place] [address] Care Team Providers Care Shampoo Assistant Name Role Phone Michelle Shannon MD Primary Care Provider + Reason for Visit * Reason Onset Date Comments Appointment Related 12/16/2021 Encounter Details Date Type Department Care Team (Late st Contact Info) Description 12/16/2021 Telephone [facility] Rehabilitation Therapy - [address] [phone] Therapist, Physical, PT Appointment Related Social History Tobacco Use Types [...] Miscellaneous Notes * Telephone Encounter - Elizabeth Torres - 12/16/2021 1718 EDT [facility] - [address] [address] Telephone Intake Information for Scheduling NEW Patients for Therapy Script/referral: [facility] Referral date: 12/15/21 Referring Provider: Luiz Grant [facility] Diagnosis: M25.531, G89.29 (ICD-10-CM) - 719.43, 338.29 (ICD-9-CM) - Chronic pain of right wrist Skimmer Scoop Operator needed? No Primary Insurance: Medicare ACO Secondary Insurance: Please choose the secondary insurance ------- MEDICAID [place] If Medicaid (age 21+): Have you been seen for therapy since September of this year? No If Medicare (Information from Automated Medicare Line): PT dollar amount used to date: 0.00 OT dollar amount used to date: 0.00 Is the patient receiving any home health or VNA services? No If Medicare: Have you been seen in therapy since September of this year? No Are you receiving any home health or VNA services? No Notes: Patient requested to do PHARMACY CLINICAL SPECIALIST ppwk in person Elizabeth Torres 12/16/2021 documented in this encounter Plan of Treatment Upcoming Encounters Date Type Department Care Team (Late st Contact Info) Description 06/08/2024 13:30 EDT Office Visit [facility] [address] [place], [place] [phone] Michelle Shannon MD [address] [place] [phone] documented as of this encounter Visit Diagnoses Not on filedocumented in this encounter Care Teams Shampoo Assistant Relationship Specialty Start Date End Date Michelle Shannon MD [address] [place] [phone] PCP - General 09/08/11 documented as of this encounter
--- OUTSIDE RECORDS SUMMARY | 2024-04-28 15:53 | XMS_ITS | Encounter Summary ---
Author Organization [facility] Address [address] [place] [address] Care Team Providers Care Edi Consultant Name Role Phone Michelle Shannon MD Primary Care Provider + Reason for Referral * Radiology Services (Routine) - Closed Specialty Diagnoses / Procedures Referred By Thelma long Referred To Contact Diagnoses Encounter for screening mammogram for malignant neoplasm of breast Procedures MA BREAST SCREENING SANDRO BILATERAL Michelle Shannon MD [address] [place] [phone] Referral ID Status Reason Start Date Expiration Date Visits Re quested Visits Authorized [id number] Closed 04/05/2021 1 1 Reason for Visit * Radiology Services (Routine) - Closed Specialty Diagnoses / Procedures Referred By Thelma long Referred To Contact Diagnoses Encounter for screening mammogram for malignant neoplasm of breast Procedures MA BREAST SCREENING SANDRO BILATERAL Michelle Shannon MD [address] [place] [phone] Referral ID Status Reason Start Date Expiration Date Visits Re quested Visits Authorized [id number] Closed 04/05/2021 1 1 Encounter Details Date Type Department Care Team (Latest Contact Info) Description 09/07/2021 13:06 EST - 09/07/2021 23:59 EST Hospital [facility]ammography - [facility] [address] [place] [address] Encounter for screening mammogram for malignant neoplasm of breast Discharge Disposition: Home or Self Care Social [...] 13:05 EST documented as of this encounter Medications at Time of Discharge Medication Sig Dispensed Refills Start Date End Date albuterol 90 mcg/actuation inhaler Inhale 1-2 Puffs as directed every 6 hours as needed (shortness of breath). Or 15-30 minutes prior to exercise 1 Inhaler 03/16/2018 wliugia-mndfdabmewnip-m affeine (EXCEDRIN MIGRAINE) 250-250-65 mg per tabletIndications:migra ine Take 1 Tablet by mouth every 6 hours as needed. betamethasone dipropionate 0.05 % lotion Apply topically 2 times daily. Twice daily as needed for itch. Do not let it drip onto the face 60 mL 3 11/19/2020 fluticasone propionate (FLONASE) 50 mcg/actuation nasal spray SHAKE LIQUID AND USE 2 SPRAYS IN EACH NOSTRIL DAILY 3 Bottle 02/06/2021 metroNIDAZOLE (METROGEL) 0.75 % gel Apply topically [...] 11/19/2020 09/03/2022 ARIPiprazole (ABILIFY) 10 mg tablet TAKE 1 TABLET BY MOUTH AT BEDTIME 90 Tablet 2 06/08/2021 12/07/2021 cholecalciferol, Vitamin D3, 1,000 unit tablet Take 1 Tablet by mouth daily. 04/25/2023 clonazePAM (KLONOPIN) 1 mg tablet TAKE 1 TABLET BY MOUTH DAILY AT BEDTIME. MAX: 1 MG 28 Tablet 1 08/19/2021 10/02/2021 cyclobenzaprine (FLEXERIL) 10 mg tablet Take 1 Tablet by mouth every 8 hours as needed for Muscle Spasms. 15 Tablet 07/31/2021 02/02/2022 dextroamphetamine-amphe tamine (ADDERALL XR) 30 mg XR capsule Take 1 capsule by mouth 2 times daily. Daily Max: 2 Capsules 56 capsule 09/04/2021 10/07/2021 DULoxetine (CYMBALTA) 60 mg capsule TAKE 1 CAPSULE BY MOUTH DAILY 90 capsule 1 06/08/2021 03/31/2022 ferrous gluconate (FERGON) 324 mg (38 mg iron) tablet Take 1 Tablet by mouth daily with breakfast. 100 Tablet 08/25/2021 12/07/2021 gabapentin (NEURONTIN) 300 mg capsule Take 1 capsule by mouth 3 times daily. 90 capsule 2 04/15/2021 09/09/2021 IBUPROFEN (ADVIL ORAL) Take by mouth daily as needed. 05/19/2023 ketoconazole (NIZORAL) 2 % shampoo Apply topically to affected area daily. Scalp and face. leave on 3-5 minutes then rinse off 1 Bottle 11 11/19/2020 09/03/2022 loratadine (CLARITIN) 10 mg tablet Take 1 Tab by mouth daily. 100 Tab 1 09/16/2017 10/07/2021 LORazepam (ATIVAN) 1 mg tablet Take 1 Tablet by mouth 2 times daily. Daily Max: 2 mg 60 Tablet 06/18/2021 03/31/2022 melatonin 10 mg capsule Take 10 mg by mouth at bedtime. 100 capsule 2 05/06/2021 12/07/2021 mupirocin (BACTROBAN) 2 % ointment Apply topically to affected area 2 times daily. For 5 days 22 g 3 11/19/2020 10/19/2023 OMEPRAZOLE ORAL Take 40 mL by mouth 2 times daily. 02/16/2022 rizatriptan (MAXALT-GREEN TIRE INSPECTOR) 10 mg disintegrating tablet Take 1 Tablet by mouth as needed for Migraine. 10 Tablet 2 06/26/2021 12/28/2021 topiramate (TOPAMAX) 50 mg tablet Take 1.5 Tabs by mouth 2 times daily. 270 Tab 1 02/06/2021 10/02/2021 tretinoin (RETIN-A) 0.025 % cream Apply topically [...] Info) Description 06/08/2024 13:30 EDT Office Visit [facility] [address] [facility] [address] [place] [address] Michelle Shannon MD [address] [place] [phone] documented as of this encounter Procedures Procedure Name Priority Date/Time Associated Diagnosis Comments MA BREAST SCREENING SANDRO BILATERAL Routine 09/07/2021 13:46 EST Encounter for screening mammogram for malignant neoplasm of breast documented in this encounter Results * MA BREAST SCREENING SANDRO BILATERAL (09/07/2021 13:46 EST) Anatomical Region Laterality Modality Breast Bilateral Mammography 09/08/2021 9:43 EST Impressions 09/08/2021 9:43 EST Negative, no evidence of malignancy. RECOMMENDATION: Routine screening mammography is recommended. OVERALL ASSESSMENT: BI-RADS 1: Negative These results will be communicated to your patient via a lay letter from Radiology. If any additional imaging is needed we will contact your patient directly. Narrative 09/08/2021 9:43 EST MA BREAST SCREENING SANDRO BILATERAL ??09/07/2021 1:30 PM History: Routine Comparison: ??Comparison has been made to previous images. Technique: Routine 3D tomosynthesis with synthesized 2D views with CAD Bilateral Breast Composition: There are scattered areas of fibroglandular density. Bilateral Breast Findings: ??No significant masses, calcifications or other abnormalities are seen. Procedure Note Álvaro Quiros MD - 09/08/2021 MA BREAST SCREENING SANDRO BILATERAL 09/07/2021 1:30 PM History: Routine Comparison: Comparison has been made to previous images. Technique: Routine 3D tomosynthesis with synthesized 2D views with CAD Bilateral Breast Composition: There are scattered areas of fibroglandulardensity. Bilateral Breast Findings: No significant masses, calcifications or otherabnormalities are seen. IMPRESSION Negative, no evidence of malignancy. RECOMMENDATION: Routine screening mammography is recommended. OVERALL ASSESSMENT: BI-RADS 1: Negative These results will be communicated to your patient via a lay letter fromRadiology. If any additional imaging is needed we will contact yourpatient directly. Michelle Shannon MD IMG MAMMOGRAPHY ORDERABLES documented in this encounter Visit Diagnoses Diagnosis Encounter for screening mammogram for malignant neoplasm of breast Other screening mammogram documented in this encounter Care Teams Edi Consultant Relationship Specialty Start Date End Date Michelle Shannon MD [address] [place] [phone] PCP - General 09/08/11 documented as of this encounter
--- OUTSIDE RECORDS SUMMARY | 2024-04-28 15:53 | XMS_ITS | Encounter Summary ---
Author Organization [facility] Address [address] [place] [address] Care Team Providers Care Mixing House Operator Name Role Phone Michelle Shannon MD Primary Care Provider + Reason for Visit * Reason Comments Follow-up Encounter Details Date Type Department Care Team (Late st Contact Info) Description 01/15/2022 15:00 EDT Office Visit [facility] [address] [place], [place] [phone] Yenifer Rolon, [employer] [address] [place] [phone] Right elbow pain (Primary Dx); Right wrist pain; Fall due to slipping on ice or snow, subsequent encounter Social History Tobacco Use Types Packs/Day Years [...] Dispensed Refills Start Date End Da te meloxicam (MOBIC) 7.5 mg tablet Take 1 Tablet by mouth 2 times daily as needed for Pain. 30 Tablet 1 01/15/2022 02/05/2023 documented in this encounter Progress Notes * Yenifer Rolon APRN - 01/15/2022 1500 EDT Subjective: Patient ID: Jane Blair is an 46 y.o. female. No chief complaint on file. FRANCES Lara presents in follow up for right arm pain. She fell on ice in August and landed with her right arm outstretched. She had an xray of her right hand which was negative. She then came in and saw August Grant APRN who referred her to OT and obtained a right wrist xray which was also negative. She has completed 4 sessions of OT and tells me today it has not helped and she is in so much pain it is difficult for her to complete the sessions. Her therapist called our office today to report she was not responding to therapy. Jane reports the pain is in her right elbow, forearm, and wrist. She has tingling of this arm which radiates into her 4th and 5th fingers. She has pain with picking up objects, brushing her hair, and laying on this side. She denies weakness. She is taking tylenol, ibuprofen, and applying icy hot without improvement. Patient Active Problem List Diagnosis ??? Narcolepsy [...] mouth at bedtime. 90 Tablet 2 ??? wjyodut-jnqcyxjyovpir-iegthdqe (EXCEDRIN MIGRAINE) 250-250-65 mg per tablet Take 1 Tab by mouthevery 6 hours as needed. Indications: MIGRAINE ??? betamethasone dipropionate 0.05 % lotion Apply topically 2 times daily. Twice daily as needed for itch. Do not let it drip onto the face 60 mL 3 ??? cholecalciferol, Vitamin D3, 1,000 unit tablet Take 1,000 Units by mouth daily. ??? citalopram (CELEXA) 20 mg tablet Take 20 mg by mouth daily. ??? clonazePAM (KLONOPIN) 1 [...] CAPSULE BY MOUTH DAILY (Patient not taking: Reportedon 12/28/2021) 90 capsule 1 ??? ferrous gluconate (FERGON) 324 mg (38 mg iron) tablet Take 1 Tablet by mouth daily with breakfast. 100 Tablet 0 ??? fluticasone propionate (FLONASE) 50 mcg/actuation nasal spray SHAKE LIQUID AND USE 2 SPRAYS IN EACH NOSTRIL DAILY 3 Bottle 0 ??? gabapentin (NEURONTIN) 300 mg capsule Take 1 capsule by mouth 3 times daily. Use bid 90 capsule2 ??? IBUPROFEN (ADVIL ORAL) Take by mouth [...] daily. ??? topiramate (TOPAMAX) 50 mg tablet TAKE [...] of Systems Constitutional: Negative. Musculoskeletal: Positive for falls and joint pain. Neurological: Positive for tingling. Negative for weakness. - See HPI Objective: There were no vitals taken for this visit. Physical Exam Constitutional: Appearance: She is well-developed and well-nourished. Comments: Appears uncomfortable Musculoskeletal: Right elbow: No swelling. Decreased range of motion. Tenderness present. Right wrist: Tenderness present. No swelling. Decreased range of motion. Normal pulse. Comments: Difficult exam due to severity of pain Assessment: Right elbow and arm pain s/p fall Plan: Diagnoses and all orders for this visit: Right elbow pain - MR ELBOW WO CONTRAST RIGHT; Future - AMB CONS/FOLLOW UP ORTHOPEDICS - [facility]; Future Right wrist pain - AMB CONS/FOLLOW UP ORTHOPEDICS - [facility]; Future Fall due to slipping on ice or snow, subsequent encounter - MR ELBOW WO CONTRAST RIGHT; Future - AMB CONS/FOLLOW UP ORTHOPEDICS - [facility]; Future Other orders - meloxicam (MOBIC) 7.5 mg tablet; Take 1 Tablet by mouth 2 times daily as needed for Pain. Right elbow and arm pain s/p fall- No improvement of symptoms since fall in August She had a negative/normal hand and wrist xray She completed 4 sessions of PT and then had to pause as she could not participate given the severity of her pain I suspect she has a tendon or ligament injury of her elbow that is affecting her ulnar nerve Will obtain an MRI of her elbow and refer her to orthopedics For pain she will try meloxicam 7.5mg BID prn Yenifer Rolon APRN documented in this encounter Plan of Treatment Upcoming Encounters Date Type Department Care Team (Late st Contact Info) Description 06/08/2024 13:30 EDT Office Visit [facility] [address] [facility] [address] [place] [address] Michelle Shannon MD [address] [place] [phone] documented as of this encounter Visit Diagnoses Diagnosis Right elbow pain- Primary Pain in joint, upper arm Right wrist pain Pain in joint, forearm Fall due to slipping on ice or snow, subsequent encounter documented in this encounter Care Teams Mixing House Operator Relationship Specialty Start Date End Date Michelle Shannon MD [address] [place] [phone] PCP - General 09/08/11 documented as of this encounter
--- OUTSIDE RECORDS SUMMARY | 2024-04-28 15:53 | XMS_ITS | Encounter Summary ---
Author Organization [facility] Address [address] [place] [address] Care Team Providers Care Machine Made Shoe Unit Worker Name Role Phone Michelle Shannon MD Primary Care Provider + Reason for Referral * Radiology Services (Routine/Next Available) - Authorization Not Required Specialty Diagnoses / Procedures Referred By Controlo t Referred To Contact Diagnoses Right wrist pain Procedures XR WRIST RIGHT 3 OR MORE VIEWS Michelle Shannon MD [address] [place] [phone] [facility] Referral ID Status Reason Start Date Expiration Date Visits Requested Visits Authorized [id number] Authorization Not Required 12/28/2021 1 1 Reason for Visit * Reason Comments Follow-up 3 MOS Encounter Details Date Type Department Care Team (Late st Contact Info) Description 12/28/2021 10:30 EDT Office Visit [facility] [address] [place] [phone] Michelle Shannon MD [address] [place] [phone] Right wrist pain (Primary Dx); REM sleep behavior disorder; Excoriation (skin-picking) disorder; Intractable chronic migraine without aura and without [...] Sign Reading Time Taken Comments Blood Pressure 120/86 12/28/2021 1056 EDT Pulse 85 12/28/2021 1056 EDT Temperature 36.5 ??C (97.7 ??F) 12/28/2021 1056 EDT Respiratory Rate - - Oxygen Saturation 98% 12/28/2021 1056 EDT Inhaled Oxygen Concentration - - Weight - - Height - - Body Mass Index - - documented in this encounter Ordered Prescriptions Prescription Sig Dispensed Refills Start Date End Da te gabapentin (NEURONTIN) 300 mg capsule Take 1 capsule by mouth 3 times daily. Use bid 90 capsule 2 12/28/2021 03/19/2022 gabapentin (NEURONTIN) 300 mg capsule Take 1 capsule by mouth 3 times daily. Use bid 90 capsule 2 12/28/2021 12/28/2021 documented in this encounter Progress Notes * Michelle Shannon MD - 12/28/2021 1030 EDT Jane Blair 46 y.o. 01/02/2023 Subjective: Chief Complaint Patient presents with ??? Follow-up 3 MOS HPI Jane is following up today for depression, anxiety, excoriation disorder, narcolepsy, and REM sleepdisorder. She had a fall on the ice 09/11/21 and landed on her outstretched right [place]. Hand Xray was negative, but the wrist was never imaged and still hurts with supination and biceps flexion. Hurts at the based of the right thumb. She has been going to OT and wearing a splint for the last week. However, she was told she needs to go for imaging before they will continue to work with her. The order was placed in , but she still has not gone. She has been seeing her therapist Erasmo regularly and Dr Broderick at [facility] for medication management. She recently started a cross taper with duloxetine and is transitioning to Celexa. Her other chronic psychiatric medicines include clonazepam, Abilify, and Adderall. She rarely uses lorazepam for breakthrough anxiety symptoms. She continues to take gabapentin for history of radicular pain in both arms that started in March. Her symptoms have resolved on medication, and she has been reluctant to discontinue gabapentin, but it is not clear if it is still providing any benefit. Current dose is 300 mg 3 times a day. She continues to have migraines about once every 2 weeks and takes topamax 75mg bid for prophylaxis. Last headache was last night. She feels taking 4 ibuprofen works better than Maxalt. Active Problem List Patient Active Problem List Diagnosis ??? Narcolepsy without cataplexy ??? REM sleep behavior disorder ??? Migraine with aura ??? Episodic mood disorder (HCC-CMS) (HCC) ??? MDD (major depressive disorder), recurrent episode, moderate (HCC) ??? GERD without esophagitis ??? Vitamin D deficiency ??? Allergic rhinitis ??? Anxiety ??? Encounter for [facility]H PSH Past Medical History: Diagnosis Date [...] ??? ARIPiprazole (ABILIFY) 10 mg tablet ??? taeitug-djecovhifafsm-xuitddhf (EXCEDRIN MIGRAINE) 250-250-65 mg per tablet ??? betamethasone dipropionate 0.05 % lotion ??? cholecalciferol, Vitamin D3, 1,000 unit tablet ??? citalopram (CELEXA) 20 mg tablet ??? clonazePAM (KLONOPIN) 1 mg [...] 2 % ointment ??? OMEPRAZOLE ORAL ??? topiramate (TOPAMAX) 50 mg tablet ??? tretinoin (RETIN-A) 0.025 % cream No current facility-administered medications for this visit. Review of Systems Constitutional: Negative for diaphoresis and weight loss. Cardiovascular: Negative for palpitations and leg swelling. Psychiatric/Behavioral: Positive for depression and suicidal ideas. Negative for hallucinations. The patient is nervous/anxious and has insomnia. Forgetful OBJECTIVE: Vitals: BP 120/86 Pulse 85 Temp 36.5 ??C (97.7 ??F) (Temporal) SpO2 98% Physical Exam Constitutional: She appears well-developed and overweight. No physical distress. Cardiovascular: Normal rate, regular rhythm, Musculoskeletal: Right hand with tenderness at the CMC joint. Pain with opposing the right third, fourth, and fifth fingers with the thumb. No pain with range of motion at the wrist other than with ulnar deviation. Skin: Several excoriations on the face Neuro: Mildly tremulous Psychiatric: Affect is anxious. Her speech is normal. She is not agitated, not hyperactive and not withdrawn. She does not exhibit a depressed mood. Pt is mildly forgetful. ASSESSMENT and PLAN Jane was seen today for follow-up. Diagnoses and all orders for this visit: Right wrist pain - XR WRIST RIGHT 3 OR MORE VIEWS; Future REM sleep behavior disorder Excoriation (skin-picking) disorder Intractable chronic migraine without aura and without status migrainosus Other orders - Discontinue: gabapentin (NEURONTIN) 300 mg capsule; Take 1 capsule by mouth 3 times daily. Use bid - gabapentin (NEURONTIN) 300 mg capsule; Take 1 capsule by mouth 3 times daily. Use bid . Major depressive disorder, narcolepsy and REM sleep disorder. Increasing sx with stressors and suicidal thoughts Transitioning duloxetine 60mg to Celexa 20mg. Melatonin at hs Continue Adderall XR 30mg bid Abilify 10mg a day Clonazepam 1 mg at bedtime Continue Lorazepam 1 mg p.o. daily as needed, but continue to limit dosing She has the number for Crisis Continue with therapist Erasmo at [facility], has appt today Also being followed by psychiatry, Dr. Broderick She has the number for first call Continue working with TOWER SUPERVISOR Aixa Bonilla twice a week Migraines- Continue topamax 75mg bid. Avoid increase due to last labs indicating metabolic acidosis D/c Maxalt due to lack of efficacy and interaction with starting Celexa Use ibuprofen 800mg as needed She also uses Excedrin prn BMP yearly, due in Apr Left parm pain and paresthesia-symptoms resolved with gabapentin Wean gabapentin to bid, monitor for increase arm pain. Plan to eventually taper off Consider pursuing the previously ordered cervical x-ray or EMG if symptoms recur Excoriation disorder- Uses metronidazole and betamethasone cream when symptoms flare Right wrist injury following injury from a fall on her outstretched right arm in Aug Xray right wrist Continue splints Then continue OT hand/wrist therapy Michelle Shannon MD documented in this encounter Plan of Treatment Upcoming Encounters Date Type Department Care Team (Late st Contact Info) Description 06/08/2024 13:30 EDT Office Visit [facility] [address] [facility] [address] [place], [place] [phone] Michelle Shannon MD [address] [place] [phone] documented as of this encounter Results * XR WRIST RIGHT [...] this encounter Visit Diagnoses Diagnosis Right wrist pain- Primary Pain in joint, forearm REM sleep behavior disorder Excoriation (skin-picking) disorder Intractable chronic migraine without aura and without status migrainosus Chronic migraine without aura, with intractable migraine, so stated, without mention of status migrainosus Right wrist pain Pain in joint, forearm documented in this encounter Discontinued Medications Medication Sig Discontinue Reason Start Date End Da te gabapentin (NEURONTIN) 300 mg capsule Take 1 capsule by mouth 3 times daily. Order modification 12/07/2021 12/28/2021 gabapentin (NEURONTIN) 300 mg capsule Take 1 capsule by mouth 3 times daily. Use bid Order modification 12/28/2021 12/28/2021 rizatriptan (MAXALT-DATA CONVERSION ANALYST) 10 mg disintegrating tablet Take 1 Tablet by mouth as needed for Migraine. 06/26/2021 12/28/2021 documented as of this encounter Historical Medications * This list may reflect changes made after this encounter. Medication Sig Dispensed Refills Start Date End Date citalopram (CELEXA) 20 mg tablet Take 20 mg by mouth daily. 03/31/2022 added in this encounter Care Teams Machine Made Shoe Unit Worker Relationship Specialty Start Date End Date Michelle Shannon MD [address] [place] [phone] PCP - General 09/08/11 documented as of this encounter
--- OUTSIDE RECORDS SUMMARY | 2024-04-28 15:53 | XMS_ITS | Encounter Summary ---
Author Organization [facility] Address [address] [place] [address] Care Team Providers Care Blueprint Assembler Name Role Phone Michelle Shannon MD Primary Care Provider + Reason for Referral * Referral (Routine/Next Available) - Authorization Not Required Specialty Diagnoses / Procedures Referred By Controlo t Referred To Contact Physical Medicine and Rehab Diagnoses Radial tunnel syndrome of right upper extremity Procedures EMG/NERVE CONDUCTION STUDY Vasyl Noel PA-C [address] [place] [phone] [facility] Phys Med Rehab [address] [place] [id number] Referral ID Status Reason Start Date Expiration Date Visits Requested Visits Authorized [id number] Authorization Not Required 01/26/2022 1 1 * Radiology Services (Routine/Next Available) - Authorization Not Required Specialty Diagnoses / Procedures Referred By Controlo t Referred To Contact Diagnoses Right elbow pain Procedures XR ELBOW RIGHT 3 OR MORE VIEWS Vasyl Noel PA-C [address] [place] [phone] [facility] Referral ID Status Reason Start Date Expiration Date Visits Requested Visits Authorized [id number] Authorization Not Required 01/26/2022 1 1 Reason for Visit * Reason Comments Pain * Consult (See Order Priority) - Order Cancelled Specialty Diagnoses / Procedures Referred By Thelma long Referred To Contact Orthopedic Surgery Diagnoses Right elbow pain Right wrist pain Fall due to slipping on ice or snow, subsequent encounter Yenifer Rolon, STERILE PROCESSING TECH [address] [place] [address] [facility] Ortho Upper Extremity [address] [place] [address] Referral ID Status Reason Start Date Expiration Date Visits Requested Visits Authorized [id number] Order Cancelled Specialty Services Required 01/19/2022 1 1 Encounter Details Date Type Department Care Team (Late st Contact Info) Description 01/26/2022 13:30 EDT [facility] - [address] [place] [address] Vasyl Noel PA-C [address] [place] [phone] Radial tunnel syndrome of right upper extremity (Primary Dx); Right elbow pain Social History Tobacco Use Types Packs/Day [...] :06 EDT documented as of this encounter Patient Instructions * Patient Instructions* Chela Reese MA - 01/26/2022 13:30 EDT Post-Injection Care The information below is provided to help you manage your post-injection experience. Please feel free to call if you have any concerns after receiving your injection. Medications used in your injection today may include: ??? Marcaine (a long-acting anesthetic) ??? Lidocaine (a short-acting anesthetic) ??? Steroid (synthetic cortisone, e.g. Depo-Medrol) ??? Euflexxa or Gel-One (viscoelastic supplementation) Normal findings after the injection include: ??? Soreness, slight throbbing or swelling at the injection site for up to two days. ??? Two to three days for the pain to be relieved. ??? Increased joint pain or discomfort for the first 24 to 48 hours before the steroid takes effect. Recommendations after injection: ??? Rest the injected extremity for the next TWO DAYS (no exercise or strenuous activity). ??? Apply ice to the injection area for 10 to 15 minutes every hour or two for the first day. ??? Take Tylenol (acetaminophen) or Advil (ibuprofen) as directed by social media developer, if not contraindicated. ??? No swimming for 24 hours. No soaking or hot tub for 48 hours. Please contact our office if the following occurs: ??? Severe itching or rash anywhere on your body. If this is accompanied by shortness of breath, please go to your nearest Emergency Room. ??? Extreme redness, swelling or warmth at the injection site. These symptoms could be signs of an early infection, which is rare. The amount and duration of pain relief from an injection varies widely between patients. Some report pain relief for months, while other patients report only a few weeks of relief. DIABETIC WARNING: If you are diabetic, this injection may elevate your blood sugars for the next one to five days. Please monitor your blood sugars closely. If they fail to return to your acceptable level, please see your primary care physician. Thank you for choosing the [facility] - [facility] [address] for your care. If you have any questions after receiving an injection, or if your pain does not subside,please call at [phone] and let us know. Our goal is to lessen your pain and improve your function. documented in this encounter Progress Notes * Vasyl Noel PA-C - 01/26/2022 1330 EDTAssociated Order(s): Hand/Upper Extremity Injection/Arthrocentesis Post-Procedure Diagnose(s): Radial tunnel syndrome of right upper extremity PROBLEM: Right elbow/forearm pain SUBJECTIVE: Jane Blair is a 46 y.o. right hand dominant female with a past medical history that issignificant for anxiety and depression, who presents to the office today for evaluation of a complaint of right elbow/forearm pain. She reports that her symptoms began several months ago. She reportsthat she slipped and fell on ice in August and landed with her right arm outstretched. Since thattime she has had progressively worsening pain which is localized to the right elbow and forearm. She localizes the bulk of her pain specifically to the anterior lateral aspect of the right forearm inthe area which would overlie the radial tunnel. She reports that her pain is worsened with motion including extension of her arm as well as supination and bringing her arm into external rotation. Herpain is severe and has been unrelieved with physical therapy, rest, and nonsteroidal anti-inflammatories. She does report occasional numbness and tingling which affected the ring and small finger in the right hand and to a lesser degree the left side. A 10-point review of systems has been reviewed from the new patient intake sheet and all are negative except wearing of corrective lenses, joint pain, numbness, and change in sleep patterns. At today's encounter the new patient intake sheet was reviewed in the office by myself, signed, dated, and scanned into the patient's chart. The past medical, family and social history have been reviewed in the patient chart. She is a neversmoker. She is on disability. She lives at home with her mother. Past Medical History: Diagnosis Date ??? Allergic [...] TYMPANOSTOMY TUBE PLACEMENT ??? WISDOM TOOTH EXTRACTION Outpatient Encounter Medications as of 01/26/2022 Medication Sig Dispense Refill ??? acetylcysteine 600 mg capsule 600mg twice daily for 2 weeks then increase to 1200mg twice [id number] Cap 3 ??? adapalene 0.3 % gel [...] mouth at bedtime. 90 Tablet 2 ??? wgvufxr-cpmhppdplmdlj-ktkoxosl (EXCEDRIN MIGRAINE) 250-250-65 mg per tablet Take [...] as needed for Pain. 30 Tablet 1 ??? metroNIDAZOLE (METROGEL) 0.75 [...] the whole face. 45 g 6 No facility-administered encounter medications on file as of 01/26/2022. OBJECTIVE: There were no vitals taken for this visit. On physical exam, the patient is found to be a pleasant and cooperative female. Psych: She is alert and oriented x 3 with tearful affect. Constitutional: She is well-developed and in no significant distress. Skin: On examination of the right upper extremity the skin is intact. Hem: There is no visible ecchymosis. Msk: Focused extremity examination: Inspection of the patient's right upper extremity does not reveal any noticeable swelling about the wrist, forearm, or elbow. She is nontender to palpation over the distal biceps tendon, medial epicondyle, or lateral epicondyle. She is tender to palpation over the proximal forearm overlying the radial tunnel. No tenderness about the wrist or hand. No tendernessover the cubital tunnel. Elbow flexion and extension does not show any ulnar nerve instability. Shehas full range of motion in the elbow although with pain primarily with extension beyond 90 degreeswhich is localized to anterior lateral forearm. Pronation and supination is full although marked bysignificant pain with supination beyond 90 degrees. She subjectively describes the pain in the forearm as a tension like a rubber band is being stretched. This pain is worsened when she externally rotates her arm. She fires the EPL, FPL, and first dorsal interosseous with 5 out of 5 strength. She has 5 out of 5 strength with resisted extension of the middle finger without any worsening symptoms. She has 5 out of 5 strength with extension of all 4 fingers of the right hand. Neuro-vascularly: Sensation is subjectively full on examination the office today in the distribution of the radial, ulnar, and median nerves measured at the right hand with no pallor or cyanosis observed. DIAGNOSTICS: X-rays of the right elbow were obtained at today's encounter and reviewed in the office independently by myself. These radiographs do not reveal any evidence of acute fracture, dislocation, or other osseous abnormality around the elbow and proximal forearm. ASSESSMENT: This is a 46-year-old gmone-yino-muulgrul female with 4+ months of right elbow pain at radial tunnel which radiates into the forearm and upper arm. I do suspect a nerve entrapment as the most likely cause of her ongoing symptoms. I discussed treatment options today to include splinting,diagnostic and possibly therapeutic corticosteroid injection, obtaining an EMG for further evaluation. After considering her treatment options she is happy to move forward with a steroid injection for diagnostic and therapeutic purposes. She would also like to move forward with an EMG of the right arm to further evaluate because of her ongoing symptoms. PLAN: 1. After considering all of her treatment options, today Jane would like to move forward with a diagnostic and therapeutic steroid injection into the right radial tunnel. This was done in the office after discussion of the diagnosis, risks and benefits of the treatment, and with patient consent obtained. 2. EMG/NCV ordered at today's encounter for further evaluation of posterior interosseous nerve entrapment. Follow-up with myself after completion of this electrodiagnostic study. 3. Today all questions were answered, the patient indicates understanding, and agrees with the plan. I spent a total of 30 minutes on the date of this encounter meeting with the patient and reviewing documentation/coordinating care as described in the above note. This was separate from any procedures performed at the time of the visit. Procedure: Hand/Upper Extremity Injection/Arthrocentesis for (Right radial tunnel syndrome) on 01/26/2022 13:30 Indications: therapeutic and diagnostic (Pain) Details: 27 G needle, dorsal approach (guidance: Reference anatomic landmarks) Medications: 40 mg methylPREDNISolone ACETATE 40 mg/mL; 3 mL lidocaine (PF) 10 mg/mL (1 %) Outcome: tolerated well, no immediate complications Procedure, treatment alternatives, risks and benefits explained, specific risks discussed. Consent was given by the patient. Immediately prior to procedure a time out was called to verify the correctpatient, procedure, equipment, product support rep and site/side marked as required. Patient was prepped and draped in the usual sterile fashion. Dr. Bee was the attending physician available in the clinic today if needed. A consultation was not required. This note was prepared using voice recognition software and the EMR. There may be inadvertent errors and omissions. SOO Norris 01/26/2022 documented in this encounter Plan of Treatment Upcoming Encounters Date Type Department Care Team (Late st Contact Info) Description 06/08/2024 13:30 EDT Office Visit [facility] [address] [facility] [address] [place] [address] Michelle Shannon MD [address] [place] [phone] Scheduled Orders Name Type Priority Associated Diagnoses Orde r Schedule EMG/NERVE CONDUCTION STUDY Procedures Routine Radial tunnel syndrome of right upper extremity Ordered: 01/26/2022 documented as of this encounter Procedures Procedure Name Priority Date/Time Associated Diagnosis Comments HAND/UPPER EXTREMITY INJECTION/ARTHROCEN TESIS Routine 01/26/2022 13:30 EDT Radial tunnel syndrome of right upper extremity documented in this encounter Results * XR [...] elbow pain COMPARISON: None. Procedure Note Romeo Mcgee DO - 01/27/2022 EXAM/TECHNIQUE: XR ELBOW RIGHT 3 OR MORE VIEWS 01/26/2022 1:45 PM HISTORY: Right elbow pain COMPARISON: None. IMPRESSION FINDINGS / IMPRESSION: 4 views of the right elbow show no fracture or malalignment. The jointspaces are well-preserved and there is no sizable joint effusion. Vasyl Noel PA-C IMG DIAGNOSTIC IMAGING ORDERABLES * Hand/Upper Extremity Injection/Arthrocentesis (01/26/2022 13:30 EDT) Narrative [facility] POINT OF CARE - 01/26/2022 13:30 EDT Vasyl Noel PA-C ? 01/26/2022 15:24 Hand/Upper Extremity Injection/Arthrocentesis for (Right radial tunnel syndrome) on 01/26/2022 13:30 Indications: therapeutic and diagnostic (Pain) Details: 27 G needle, dorsal approach (guidance: Reference anatomic landmarks) Medications: 40 mg methylPREDNISolone ACETATE 40 mg/mL; 3 mL lidocaine (PF) 10 mg/mL (1 %) Outcome: tolerated well, no immediate complications Procedure, treatment alternatives, risks and benefits explained, specific risks discussed. Consent was given by the patient. Immediately prior to procedure a time out was called to verify the correct patient, procedure, equipment, product support rep and site/side marked as required. Patient was prepped and draped in the usual sterile fashion. Vasyl Noel PA-C PROCEDURE/DESIREE R SURGICAL ORDERABLES [facility] POINT OF CARE documented in this encounter Visit Diagnoses Diagnosis Radial tunnel syndrome of right upper extremity- Primary Right elbow pain Pain in joint, upper arm Right elbow pain Pain in joint, upper arm documented in this encounter Administered Medications Inactive Administered Medications - up to 3 most recent administrations Medication Order MAR Action Action Date Dose Rate Site lidocaine (PF) 10 mg/mL (1 %) injection 3 mL 3 mL, other, Once PRN Procedure, 1 dose, Starting on Tue01/26/22 at 1330, Until Tu01/26/22 at 1330, Routine Given 01/26/2022 13:30 EDT 3 mL methylPREDNISolone ACETATE (DEPO-MEDROL) injection 40 mg 40 mg, intra-articular, Once PRN Procedure, 1 dose, Starting on Tue01/26/22 at 1330, Until Tue01/26/22 at 1330, Routine Given 01/26/2022 13:30 EDT 40 mg documented in this encounter Care Teams Blueprint Assembler Relationship Specialty Start Date End Date Michelle Shannon MD [address] [place] [phone] PCP - General 09/08/11 documented as of this encounter
--- OUTSIDE RECORDS SUMMARY | 2024-04-28 15:53 | XMS_ITS | Encounter Summary ---
Author Organization [facility] Address [address] [place] [address] Care Team Providers Care Manager Materials Management Name Role Phone Michelle Shannon MD Primary Care Provider + Reason for Referral * Radiology Services (Routine/Next Available) - Authorization Not Required Specialty Diagnoses / Procedures Referred By Thelma long Referred To Contact Diagnoses Right hand pain Fall, initial encounter Procedures XR HAND RIGHT 3 OR MORE VIEWS Luiz Grant DNP [address] [place] [phone] [facility] Referral ID Status Reason Start Date Expiration Date Visits Requested Visits Authorized [id number] Authorization Not Required 1 1 1 Reason for Visit * Reason Comments Fall Hand Pain Encounter Details Date Type Department Care Team (Late st Contact Info) Description 09/23/2021 10:00 EST Office Visit [facility] [address] [place] [phone] Luiz Grant DNP [address] [place] [phone] Right hand pain (Primary Dx); Fall, initial encounter Social History Tobacco Use Types Packs/Day [...] Taken Comments Blood Pressure - - Pulse 70 09/23/2021 1012 EST Temperature - - Respiratory Rate 18 09/23/2021 1012 EST Oxygen Saturation - - Inhaled Oxygen Concentration - - Weight - - Height - - Body Mass Index - - documented in this encounter Progress Notes * Luiz Grant, DNP - 09/23/2021 1000 EST Subjective: Patient ID: Jane Blair is an 46 y.o. female. Chief Complaint Patient presents with ??? Fall ??? Hand Pain HPI Jane had a fall two days ago when she slipped on some ice in her driveway. When she fell, she landed on her right hand and wrist. Since then she has had significant swelling, ecchymoses and pain in her right hand. She is able to make a fist, albeit very gingerly. Her solar energy consultant and designer strength is poor. The sensation in her hand and fingers remains intact. The pain is primarily in her dorsal hand proximal to her 3rd-4th fingers. She's had some soreness in her right forearm as well. She tried taking Concha aspirin and Tylenol without effect. She ultimately took ibuprofen 600mg and this helped with the pain. She developed a headache and nausea due to the pain however the ibuprofen helped with this too. Patient Active Problem List Diagnosis ??? Narcolepsy [...] 2 weeks then increase to 1200mg twice [id number] Cap 3 ??? adapalene 0.3 % gel [...] MOUTH AT BEDTIME 90 Tablet 2 ??? xhxxele-zrnuybefjxynx-eonwlynf (EXCEDRIN MIGRAINE) 250-250-65 mg per tablet Take [...] MAX: 1 MG 28 Tablet 1 ??? cyclobenzaprine (FLEXERIL) 10 mg tablet Take [...] by mouth 2 times daily. ??? rizatriptan (MAXALT-FIRE REGULATOR) 10 mg disintegrating tablet Take 1 Tablet [...] visit. No Known Allergies Review of Systems Musculoskeletal: Positive for falls and joint pain (right hand). - See HPI Objective: Pulse 70 Resp 18 Physical Exam Constitutional: General: She is not in acute distress. Appearance: She is well-developed and well-nourished. She is not diaphoretic. Musculoskeletal: Right forearm: Tenderness (proximal posterior forearm midly ecchymotic and tender) present. No swelling, deformity or bony tenderness. Right wrist: No swelling or deformity. Normal range of motion. Normal pulse. Right hand: Swelling (and ecchymoses predominantly on dorsal aspect proximal to 3rd-4th fingers, although there is also some mild ecchymoses on her palm) and tenderness present. Decreased strength. Normal sensation. Normal capillary refill. Normal pulse. Skin: General: Skin is warm and dry. Neurological: Mental Status: She is alert and oriented to person, place, and time. Psychiatric: Mood and Affect: Mood and affect normal. Behavior: Behavior normal. Thought Content: Thought content normal. Judgment: Judgment normal. Assessment: Right hand pain s/p fall - Suspect a fracture in her right hand. She does appear neurovascularly intact today on exam. Plan: Jane was seen today for fall and hand pain. Diagnoses and all orders for this visit: Right hand pain - XR HAND RIGHT 3 OR MORE VIEWS; Future Fall, initial encounter - XR HAND RIGHT 3 OR MORE VIEWS; Future -Will order an x-ray -Asked that she go to [facility] to have this performed because if positive for fracture she will need to go and get this splinted at urgent care -Otherwise recommended RICE -She can continue ibuprofen 600mg TID for the pain and swelling -F/u pending x-ray results Luiz Grant DNP documented in this encounter Plan of Treatment Upcoming Encounters Date Type Department Care Team (Late st Contact Info) Description 06/08/2024 13:30 EDT Office Visit [facility] [address] [facility] [address] [place], [place] [phone] Michelle Shannon MD [address] [place] [phone] documented as of this encounter Results * XR HAND RIGHT 3 OR MORE VIEWS (09/23/2021 12:36 EST) Anatomical Region Laterality Modality Upper Extremities Right Computed Radio graphy 09/23/2021 12:4 8 EST Impressions 09/23/2021 12:48 EST FINDINGS / IMPRESSION: Right hand 3 views: There is a chronic appearing small osseous structure at the base of the 3rd metacarpal on the dorsal aspect of the capitate which is suggestive of a os styloideum or carpal boss measuring about 8 x 5 x 4 mm in size. Superimposed mild degenerative changes are noted at the synchondrosis. If indicated, CT imaging of the wrist can be obtained for more complete assessment. In addition, there are mild degenerative joint changes scattered throughout the hand. No evidence for acute fracture or dislocation. Mild soft tissue swelling is noted. Please correlate. If there is clinical concern for a radiographically occult fracture recommend repeat radiographs in about 10-14 days to further evaluate for this possibility, unless earlier assessment is felt to be necessary. Narrative 09/23/2021 12:48 EST EXAM/TECHNIQUE: XR HAND RIGHT 3 OR MORE VIEWS ??09/23/2021 12:45 PM HISTORY: ?? fall on outstretched arm, right hand pain, swelling, ecchymosis COMPARISON: None. Procedure Note Pio Miller MD - 09/23/2021 EXAM/TECHNIQUE: XR HAND RIGHT 3 OR MORE VIEWS 09/23/2021 12:45 PM HISTORY: fall on outstretched arm, right hand pain, swelling, ecchymosis COMPARISON: None. IMPRESSION FINDINGS / IMPRESSION: Right hand 3 views: There is a chronic appearing small osseous structureat the base of the 3rd metacarpal on the dorsal aspect of the capitatewhich is suggestive of a os styloideum or carpal boss measuring about 8 x5 x 4 mm in size. Superimposed mild degenerative changes are noted at thesynchondrosis. If indicated, CT imaging of the wrist can be obtained formore complete assessment. In addition, there are mild degenerative jointchanges scattered throughout the hand. No evidence for acute fracture ordislocation. Mild soft tissue swelling is noted. Please correlate. Ifthere is clinical concern for a radiographically occult fracture recommendrepeat radiographs in about 10-14 days to further evaluate for thispossibility, unless earlier assessment is felt to be necessary. Luiz Grant DNP IMG DIAGNOSTIC I MAGING ORDERABLES documented in this encounter Visit Diagnoses Diagnosis Right hand pain- Primary Pain in limb Fall, initial encounter Right hand pain Pain in limb Fall, initial encounter documented in this encounter Care Teams Manager Materials Management Relationship Specialty Start Date End Date Michelle Shannon MD [address] [place] [phone] PCP - General 09/08/11 documented as of this encounter
--- OUTSIDE RECORDS SUMMARY | 2024-04-28 15:53 | XMS_ITS | Encounter Summary ---
Author Organization [facility] Address [address] [place] [address] Care Team Providers Care Restaurant Bartender Name Role Phone Michelle Shannon MD Primary Care Provider + Reason for Visit * Reason Onset Date Comments Medications Refill 09/04/2021 Encounter Details Date Type Department Care Team ([facility] Contact Info) Description 09/04/2021 Refill [facility] [address] [place] [phone] Michelle Shannon MD [address] [place] [phone] Medications Refill Social History Tobacco Use Types [...] Max: 2 Capsules 56 capsule 09/04/2021 10/07/2021 documented in this encounter Plan of Treatment Upcoming Encounters Date Type Department Care Team ([facility] st Contact Info) Description 06/08/2024 13:30 EDT Office Visit [facility] [address] [place], [place] [phone] Michelle Shannon MD [address] [place] [phone] documented as of this encounter Visit Diagnoses Not on filedocumented in this encounter Discontinued Medications Medication Sig Discontinue Reason Start Date End Da te dextroamphetamine-amphe tamine (ADDERALL XR) 30 mg XR capsule Take 1 capsule by mouth 2 times daily. Daily Max: 2 Capsules Reorder 08/04/2021 09/04/2021 documented as of this encounter Care Teams Restaurant Bartender Relationship Specialty Start Date End Date Michelle Shannon MD [address] [place] [phone] PCP - General 09/08/11 documented as of this encounter
--- OUTSIDE RECORDS SUMMARY | 2024-04-28 15:53 | XMS_ITS | Encounter Summary ---
Author Organization [facility] Address [address] [place] [address] Care Team Providers Care Airline Reservation Agent Name Role Phone Michelle Shannon MD Primary Care Provider + Reason for Visit * Reason Onset Date Comments Medications Refill 10/05/2021 Encounter Details Date Type Department Care Team (Late st Contact Info) Description 10/05/2021 Refill [facility] [address] [place] [address] [phone] Michelle Shannon MD [address] [place] [phone] Medications Refill Social History Tobacco Use [...] BY MOUTH TWICE DAILY 270 Tablet 1 10/05/2021 12/07/2021 documented in this encounter Miscellaneous Notes * Telephone Encounter - Carolyn Mandi - 10/05/2021 1322 EST Pt reported that she tried to picker tender helper her prescription for topamax on Tuesday and [facility]. We will send the script through again. Mandi Leon MA documented in this encounter Plan of Treatment Upcoming Encounters Date Type Department Care Team (Late st Contact Info) Description 06/08/2024 13:30 EDT Office Visit [facility] [address] [place] [address] Michelle Shannon MD [address] [place] [phone] documented as of this encounter Visit Diagnoses Not on filedocumented in this encounter Discontinued Medications Medication Sig Discontinue Reason Start Date End Da te topiramate (TOPAMAX) 50 mg tablet TAKE 1 AND 1/2 TABLETS BY MOUTH TWICE DAILY Reorder 10/02/2021 10/05/2021 documented as of this encounter Care Teams Airline Reservation Agent Relationship Specialty Start Date End Date Michelle Shannon MD [address] [place] [phone] PCP - General 09/08/11 documented as of this encounter
--- OUTSIDE RECORDS SUMMARY | 2024-04-28 15:53 | XMS_ITS | Encounter Summary ---
Author Organization [facility] Address [address] [place] [address] Care Team Providers Care Histology Aide Name Role Phone Michelle Shannon MD Primary Care Provider + Reason for Visit * Reason Comments Follow-up 1 month Encounter Details Date Type Department Care Team (Late st Contact Info) Description 02/02/2022 11:00 EDT Office Visit [facility] [address] [place] [phone] Michelle Shannon MD [address] [place] [phone] Right elbow pain (Primary Dx); REM sleep behavior disorder; Excoriation (skin-picking) disorder; MDD (major depressive disorder), recurrent episode, moderate (HCC) Social History Tobacco Use Types Packs/Day Years [...] Sign Reading Time Taken Comments Blood Pressure 112/82 02/02/2022 1117 EDT Pulse 78 02/02/2022 1117 EDT Temperature 36.5 ??C (97.7 ??F) 02/02/2022 1117 EDT Respiratory Rate - - Oxygen Saturation 98% 02/02/2022 1117 EDT Inhaled Oxygen Concentration - - Weight - - Height - - Body Mass Index - - documented in this encounter Ordered Prescriptions Prescription Sig Dispensed Refills Start Date End Da te ferrous gluconate (FERGON) 324 mg (38 mg iron) tablet Take 1 Tablet by mouth daily with breakfast. 100 Tablet 02/02/2022 02/10/2022 dextroamphetamine-amphe tamine (ADDERALL XR) 30 mg XR capsule Take 1 capsule by mouth 2 times daily. Daily Max: 2 Capsules 56 capsule 02/02/2022 03/11/2022 documented in this encounter Progress Notes * Michelle Shannon MD - 02/02/2022 1100 EDT Jane Blair 46 y.o. 02/12/2022 Subjective: Chief Complaint Patient presents with ??? Follow-up 1 month HPI Jane is following up today for her chronic issues of depression, anxiety, excoriation disorder, narcolepsy, and REM sleep disorder. She also is still suffering from right arm and shoulder pain related to a fall in August 2021. Last week, she had a visit with orthopedics and they diagnosed her with possible radial tunnel syndrome and recommended an EMG study. She has been going to occupational therapy. At her Ortho visit, she received a steroid shot and reports that her pain 25% better when she turns her wrist and when she is sleeping. She still has significant pain triggered by pronation and supination and flexing her biceps. The pain is localized around the elbow. She also has a history of bilateral radicular painin both arms that began in March 2021 and has been on gabapentin since then. Her radicular pain quickly responded to gabapentin, and its not clear if any of her current elbow symptoms are related. Shehas recently been taking gabapentin 300 mg twice a day. Jane continues to be followed by her therapist Erasmo regularly and Dr Broderick at [facility] for medication management. Dr. Broderick has been in the process of transitioning duloxetine to Celexa, and she is now fully on Celexa for couple weeks. Plans to increase to 40 mg this week. Her other chronic psychiatric m edicines include clonazepam, Abilify, and Adderall. She occasionally uses lorazepam for breakthrough anxiety symptoms. During the process of cross tapering, she has noticed an increase in her anxietyand tearfulness. She is also struggles with excoriation disorder and the symptoms have been more active during the medication adjustments. She continues to endorse symptoms of passive SI but no active plan. Active Problem List Patient Active Problem List [...] ??? ARIPiprazole (ABILIFY) 10 mg tablet ??? zavsizv-uoydboiynaswx-fxjqglxk (EXCEDRIN MIGRAINE) 250-250-65 mg per tablet ??? [...] and has insomnia. Forgetful OBJECTIVE: Vitals: BP 112/82 Pulse 78 Temp 36.5 ??C (97.7 ??F) (Temporal) SpO2 98% Physical Exam Constitutional: She appears well-developed and overweight. No physical distress. Cardiovascular: Normal rate, regular rhythm, Musculoskeletal: Right hand dominant with tenderness at the CMC joint. Pain with opposing the rightthird, fourth, and fifth fingers with the thumb, but better range of motion today. No redness or swelling Skin: Multiple excoriations on the face Neuro: Mildly tremulous Psychiatric: Affect is anxious. Her speech is normal. She is not agitated, not hyperactive and not withdrawn. She does not exhibit a depressed mood. Pt is mildly forgetful. ASSESSMENT and PLAN Jane was seen today for follow-up. Diagnoses and all orders for this visit: Right elbow pain REM sleep behavior disorder Excoriation (skin-picking) disorder MDD (major depressive disorder), recurrent episode, moderate (HCC) Other orders - dextroamphetamine-amphetamine (ADDERALL XR) 30 mg XR capsule; Take 1 capsule by mouth 2 times daily. Daily Max: 2 Capsules - Discontinue: ferrous gluconate (FERGON) 324 mg (38 mg iron) tablet; Take 1 Tablet by mouth daily with breakfast. . Major depressive disorder, excoriation disorder, narcolepsy and REM sleep disorder. Increasing sx with stressors and suicidal thoughts. Excoriation disorder is more active as her medications are being adjusted. Currently taking Celexa, and plans to increase to 40 mg this week Melatonin at hs Continue Adderall XR 30mg bid Abilify 10mg a day Clonazepam 1 mg at bedtime Continue Lorazepam 1 mg p.o. daily as needed, but continue to limit dosing She has the number for Crisis/first call Continue with therapist Erasmo at [facility] Followed by psychiatry, Dr. Broderick Continue working with DIESEL ENGINE FITTER Aixa Bonilla twice a week Excoriation disorder- Uses metronidazole and betamethasone cream when symptoms flare Right wrist injury following injury from a fall on her outstretched right arm in Aug 2021, possibleradial tunnel syndrome diagnosed by orthopedics EMG scheduled 02/20 to rule out posterior interosseous nerve entrapment Continue PT/OT Increase gabapentin to 300 mg in the a.m. and 600 mg at at bedtime Migraines- Continue topamax 75mg bid. Avoid increase due to last labs indicating metabolic acidosis Stopped Maxalt due to lack of efficacy and interaction with starting Celexa Continue ibuprofen 800mg as needed She also uses Excedrin prn BMP yearly, due in Apr Michelle Shannon MD documented in this encounter Plan of Treatment Upcoming Encounters Date Type Department Care Team (Late st Contact Info) Description 06/08/2024 13:30 EDT Office Visit [facility] [address] [facility] [address] [place] [address] Michelle Shannon MD [address] [place] [phone] documented as of this encounter Visit Diagnoses Diagnosis Right elbow pain- Primary Pain in joint, upper arm REM sleep behavior disorder Excoriation (skin-picking) disorder MDD (major depressive disorder), recurrent episode, moderate ([facility]) Major depressive disorder, recurrent episode, moderate documented in this encounter Discontinued Medications Medication Sig Discontinue Reason Start Date End Da te cyclobenzaprine (FLEXERIL) 10 mg tablet Take 1 Tablet by mouth every 8 hours as needed for Muscle Spasms. 07/31/2021 02/02/2022 ferrous gluconate (FERGON) 324 mg (38 mg iron) tablet Take 1 Tablet by mouth daily with breakfast. Reorder 12/07/2021 02/02/2022 dextroamphetamine-amphe tamine (ADDERALL XR) 30 mg XR capsule Take 1 capsule by mouth 2 times daily. Daily Max: 2 Capsules Reorder 12/09/2021 02/02/2022 documented as of this encounter Care Teams Histology Aide Relationship Specialty Start Date End Date Michelle Shannon MD [address] [place] [phone] PCP - General 09/08/11 documented as of this encounter
--- OUTSIDE RECORDS SUMMARY | 2024-04-28 15:53 | XMS_ITS | Encounter Summary ---
Author Organization [facility] Address [address] [place] [address] Care Team Providers Care Saw Sharpener Name Role Phone Michelle Shannon MD Primary Care Provider + Reason for Visit * Reason Onset Date Comments Medications Refill 11/17/2021 Encounter Details Date Type Department Care Team (Late st Contact Info) Description 11/17/2021 Refill [facility] [address] [place], [place] [phone] Janna Tamayo, JOSEFINA Medications Refill Social History [...] MAX: 1 MG 28 Tablet 11/17/2021 02/10/2022 dextroamphetamine-amphe tamine (ADDERALL XR) 30 mg XR capsule Take 1 capsule by mouth 2 times daily. Daily Max: 2 Capsules 56 capsule 11/17/2021 12/09/2021 documented in this encounter Miscellaneous Notes * Telephone Encounter - Janna Tamayo RN - 11/17/2021 1637 EST refill documented in this encounter Plan of Treatment Upcoming Encounters Date Type Department Care Team (Late st Contact Info) Description 06/08/2024 13:30 EDT Office Visit [facility] [address] [place], [place] [phone] Michelle Shannon MD [address] [place] [phone] documented as of this encounter Visit Diagnoses Not on filedocumented in this encounter Discontinued Medications Medication Sig Discontinue Reason Start Date End Da te dextroamphetamine-amphe tamine (ADDERALL XR) 30 mg XR capsule Take 1 capsule by mouth 2 times daily. Daily Max: 2 Capsules Reorder 10/07/2021 11/17/2021 clonazePAM (KLONOPIN) 1 mg tablet TAKE 1 TABLET BY MOUTH DAILY AT BEDTIME. MAX: 1 MG Reorder 10/02/2021 11/17/2021 documented as of this encounter Care Teams Saw Sharpener Relationship Specialty Start Date End Date Michelle Shannon MD [address] [place] [phone] PCP - General 09/08/11 documented as of this encounter
--- OUTSIDE RECORDS SUMMARY | 2024-04-28 15:53 | XMS_ITS | Encounter Summary ---
Author Organization [facility] Address [address] [place] [address] Care Team Providers Care Senior Tax Manager Name Role Phone Michelle Shannon MD Primary Care Provider + Reason for Referral * Radiology Services (Routine/Next Available) - Authorization Not Required Specialty Diagnoses / Procedures Referred By Contac t Referred To Contact Diagnoses Right hand pain Fall, initial encounter Procedures XR HAND RIGHT 3 OR MORE VIEWS Luiz Grant DNP [address] [place] [address] [facility] Referral ID Status Reason Start Date Expiration Date Visits Requested Visits Authorized [id number] Authorization Not Required 1 1 1 Reason for Visit * Radiology Services (Routine/Next Available) - Authorization Not Required Specialty Diagnoses / Procedures Referred By Contac t Referred To Contact Diagnoses Right hand pain Fall, initial encounter Procedures XR HAND RIGHT 3 OR MORE VIEWS Luiz Grant DNP [address] [place] [address] [facility] Referral ID Status Reason Start Date Expiration Date Visits Requested Visits Authorized [id number] Authorization Not Required 1 1 1 Encounter Details Date Type Department Care Team (Latest Contact Info) Description 09/23/2021 12:20 EST - 09/23/2021 23:59 EST Hospital Encounter [facility] [address] [place] [address] Right hand pain; Fall, initial encounter Discharge Disposition: Home or Self Care [...] minutes prior to exercise 1 Inhaler 03/16/2018 pjucien-uebqmscgqztoe-u affeine (EXCEDRIN MIGRAINE) 250-250-65 mg per tabletIndications:migra [...] times daily. 90 capsule 2 09/09/2021 12/07/2021 IBUPROFEN (ADVIL ORAL) Take by mouth daily [...] by mouth 2 times daily. 02/16/2022 rizatriptan (MAXALT-GAME PRESERVE MANAGER) 10 mg disintegrating tablet Take 1 Tablet [...] Info) Description 06/08/2024 13:30 EDT Office Visit [facility] [address] [facility] [address] [place], [place] [phone] Michelle Shannon MD [address] [place] [phone] documented as of this encounter Procedures Procedure Name Priority Date/Time Associated Diagnosis Comments XR HAND RIGHT 3 OR MORE VIEWS Routine 09/23/2021 12:36 EST Right hand pain Fall, initial encounter documented in this encounter Results * [...] this encounter Visit Diagnoses Diagnosis Right hand pain Pain in limb Fall, initial encounter documented in this encounter Care Teams Senior Tax Manager Relationship Specialty Start Date End Date Michelle Shannon MD [address] [place] [phone] PCP - General 09/08/11 documented as of this encounter
--- OUTSIDE RECORDS SUMMARY | 2024-04-28 15:53 | XMS_ITS | Encounter Summary ---
Author Organization [facility] Address [address] [place] [address] Care Team Providers Care Parts Clerk Plant Maintenance Name Role Phone Michelle Shannon MD Primary Care Provider + Reason for Visit * Reason Onset Date Comments Medications Refill 10/08/2021 Encounter Details Date Type Department Care Team (Late st Contact Info) Description 10/08/2021 Refill Benito Crowley MD, [facility] [address] [place], [place] [phone] Yenifer Rolon, SENIOR LINUX UNIX ENGINEER [address] [place] [phone] Medications Refill Social History Tobacco Use Types [...] Info) Description 06/08/2024 13:30 EDT Office Visit [facility] [address] [facility] [address] [place] [address] Michelle Shannon MD [address] [place] [phone] documented as of this encounter Visit Diagnoses Not on filedocumented in this encounter Care Teams Parts Clerk Plant Maintenance Relationship Specialty Start Date End Date Michelle Shannon MD [address] [place] [phone] PCP - General 09/08/11 documented as of this encounter
--- OUTSIDE RECORDS SUMMARY | 2024-04-28 15:53 | XMS_ITS | Encounter Summary ---
Author Organization [facility] Address [address] [place] [address] Care Team Providers Care Rn First Assistant Name Role Phone Michelle Shannon MD Primary Care Provider + Reason for Visit * Reason Onset Date Comments Medications Refill 08/04/2021 Encounter Details Date Type Department Care Team ([facility] Contact Info) Description 08/04/2021 Refill [facility] [address] [place] [phone] Michelle Shannon MD [address] [place] [phone] Medications Refill Social History Tobacco Use Types [...] daily. Daily Max: 2 Capsules 56 capsule 08/04/2021 09/04/2021 documented in this encounter Plan of Treatment Upcoming Encounters Date Type Department Care Team ([facility] st Contact Info) Description 06/08/2024 13:30 EDT Office Visit [facility] [address] [place], [place] [phone] Michelle Shannon MD [address] [place] [phone] documented as of this encounter Visit Diagnoses Not on filedocumented in this encounter Discontinued Medications Medication Sig Discontinue Reason Start Date End Da te dextroamphetamine-amphe tamine (ADDERALL XR) 30 mg XR capsule Take 1 capsule by mouth 2 times daily. Daily Max: 2 Capsules Reorder 06/26/2021 08/04/2021 documented as of this encounter Care Teams Rn First Assistant Relationship Specialty Start Date End Date Michelle Shannon MD [address] [place] [phone] PCP - General 09/08/11 documented as of this encounter
--- OUTSIDE RECORDS SUMMARY | 2024-04-28 15:53 | XMS_ITS | Encounter Summary ---
Author Organization [facility] Address [address] [place] [address] Care Team Providers Care Currency Examiner Name Role Phone Michelle Shannon MD Primary Care Provider + Reason for Visit * Reason Onset Date Comments Other 01/25/2022 Encounter Details Date Type Department Care Team (Late st Contact Info) Description 01/25/2022 Telephone [facility] [address] [place] [phone] Michelle Shannon MD [address] [place] [phone] Other Social History Tobacco Use Types [...] encounter Miscellaneous Notes * Telephone Encounter - Mcihelle Shannon MD - 01/29/20221814 EDT I left a message for Jane. At her last visit, we had discussed weaning gabapentin since it was not clear whether this was providing any benefit. I am not sure whether her increased pain has to do with weaning. If her pain is increased related to weaning gabapentin, I encouraged her to increase backto her previous dose level until she can follow-up at this office. At her last visit we also, we talked about wrist pain following her fall. I let her know she could try [id number] Voltaren gel, or Salonpas with lidocaine for this more localized discomfort. Ifit is cost prohibitive [id number], we can send in a prescription. If she does not already have an appointment scheduled in the next couple weeks, I asked her to set up something to be seen soon. * Telephone Encounter - Brianna Parker - 01/25/2022 1411 EDT Pt called to check on date and time of her upcoming apt. Pt also wanted to let Dr. Shannon know that the pain medication she is on for her arm pain is not working, and she is still in severe pain. Unsure if anything can be done in the meantime before her apt next week. documented in this encounter Plan of Treatment Upcoming Encounters Date Type Department Care Team (Late st Contact Info) Description 06/08/2024 13:30 EDT Office Visit [facility] [address] [facility] [address] [place], [place] [phone] Michelle Shannon MD [address] [place] [phone] documented as of this encounter Visit Diagnoses Not on filedocumented in this encounter Care Teams Currency Examiner Relationship Specialty Start Date End Date Michelle Shannon MD [address] [place] [phone] PCP - General 09/08/11 documented as of this encounter
--- OUTSIDE RECORDS SUMMARY | 2024-04-28 15:54 | XMS_ITS | Encounter Summary ---
Author Organization [facility] Address [address] [place] [address] Care Team Providers Care Pediatric Speech Language Pathologist Name Role Phone Michelle Shannon MD Primary Care Provider + Encounter Details Date Type Department Care Team (Late st Contact Info) Description 07/08/2020 Prep for Procedure [facility] [address] [place], [place] [phone] Kong Woo MD [address] [facility] [address] [place] [phone] Social History Tobacco Use Types [...] :06 EDT documented as of this encounter H&P Notes * Kong Woo MD - 07/08/2020 0910 EDT The preoperative history and physical which was performed within 30 days of this procedure has been reviewed and the clinically appropriate elements of the physical examination have been repeated. There are no changes to the documented history and physical or if so such changes are documented below Kong Woo MD 07/08/2020 9:10 documented in this encounter Plan of Treatment Upcoming Encounters Date Type Department Care Team (Late st Contact Info) Description 06/08/2024 13:30 EDT Office Visit [facility] [address] [place], [place] [phone] Michelle Shannon MD [address] [place] [phone] documented as of this encounter Visit Diagnoses Not on filedocumented in this encounter Care Teams Pediatric Speech Language Pathologist Relationship Specialty Start Date End Date Michelle Shannon MD [address] [place] [phone] PCP - General 09/08/11 documented as of this encounter
--- OUTSIDE RECORDS SUMMARY | 2024-04-28 15:54 | XMS_ITS | Encounter Summary ---
Author Organization [facility] Address [address] [place] [address] Care Team Providers Care Electric Scoop Operator Name Role Phone Michelle Shannon MD Primary Care Provider + Reason for Visit * Reason Onset Date Comments Medication Management 08/18/2020 Encounter Details Date Type Department Care Team (Late st Contact Info) Description 08/18/2020 Telephone [facility] [address] [place] [phone] Michelle Shannon MD [address] [place] [phone] Medication Management Social History Tobacco Use [...] encounter Miscellaneous Notes * Telephone Encounter - Natasha Crowley - 08/18/2020 1126 EST Requesting script for adderal 30 mg BID documented in this encounter Plan of Treatment Upcoming Encounters Date Type Department Care Team (Late st Contact Info) Description 06/08/2024 13:30 EDT Office Visit [facility] [address] [place], [place] [phone] Michelle Shannon MD [address] [place] [phone] documented as of this encounter Visit Diagnoses Not on filedocumented in this encounter Care Teams Electric Scoop Operator Relationship Specialty Start Date End Date Michelle Shannon MD [address] [place] [phone] PCP - General 09/08/11 documented as of this encounter
--- OUTSIDE RECORDS SUMMARY | 2024-04-28 15:54 | XMS_ITS | Encounter Summary ---
Author Organization [facility] Address [address] [place] [address] Care Team Providers Care Patient Accounting Representative Name Role Phone Michelle Shannon MD Primary Care Provider + Reason for Visit * Reason Onset Date Comments Medications Refill 10/07/2020 Encounter Details Date Type Department Care Team (Late st Contact Info) Description 10/07/2020 Refill [facility] [address] [place] [phone] Michelle Shannon MD [address] [place] [phone] Medications Refill Social History Tobacco Use [...] mg (38 mg iron) tablet Take 1 Tab by mouth daily with breakfast. 100 Tab 10/07/2020 04/17/2021 documented in this encounter Miscellaneous Notes * Telephone Encounter - Janna Tamayo LPN - 10/07/2020 1540 EST Refill request documented in this encounter Plan of Treatment Upcoming Encounters Date Type Department Care Team (Late st Contact Info) Description 06/08/2024 13:30 EDT Office Visit [facility] [address] [place], [place] [phone] Michelle Shannon MD [address] [place] [phone] documented as of this encounter Visit Diagnoses Not on filedocumented in this encounter Discontinued Medications Medication Sig Discontinue Reason Start Date End Da te ferrous gluconate (FERGON) 324 mg (38 mg iron) tablet Take 1 Tab by mouth daily with breakfast. Reorder 06/17/2020 10/07/2020 documented as of this encounter Care Teams Patient Accounting Representative Relationship Specialty Start Date End Date Michelle Shannon MD [address] [place] [phone] PCP - General 09/08/11 documented as of this encounter
--- OUTSIDE RECORDS SUMMARY | 2024-04-28 15:54 | XMS_ITS | Encounter Summary ---
Author Organization [facility] Address [address] [place] [address] Care Team Providers Care Tree Farmer Name Role Phone Michelle Shannon MD Primary Care Provider + Reason for Visit * Reason Onset Date Comments Immunizations 10/20/2020 COVID VACCINE Encounter Details Date Type Department Care Team (Late st Contact Info) Description 10/20/2020 Telephone [facility] [address] [place] [phone] Michelle Shannon MD [address] [place] [phone] Immunizations (COVID VACCINE) Social History Tobacco Use Types Packs/Day Years [...] encounter Miscellaneous Notes * Telephone Encounter - Quintonrhonda LIZET Saldivar - 10/20/2020 1223 EST Pt called asking about when she can receive COVID vaccine, she has unique living situation- she states she lives in [facility] type facility and is around older people. Right now the vaccine is being offered to healthcare workers, senior home residents, 75+ age group. I told her to keep eye out for governors press conferences for further announcements. CURTIS CASILLAS LPN documented in this encounter Plan of Treatment Upcoming Encounters Date Type Department Care Team (Late st Contact Info) Description 06/08/2024 13:30 EDT Office Visit [facility] [address] [place] [address] Michelle Shannon MD [address] [place] [phone] documented as of this encounter Visit Diagnoses Not on filedocumented in this encounter Care Teams Tree Farmer Relationship Specialty Start Date End Date Michelle Shannon MD [address] [place] [phone] PCP - General 09/08/11 documented as of this encounter
--- OUTSIDE RECORDS SUMMARY | 2024-04-28 15:54 | XMS_ITS | Encounter Summary ---
Author Organization [facility] Address [address] [place] [address] Care Team Providers Care Flying Squad Worker Name Role Phone Michelle Shannon MD Primary Care Provider + Reason for Visit * Reason Onset Date Comments Medications Refill 12/26/2020 Encounter Details Date Type Department Care Team (Late st Contact Info) Description 12/26/2020 Refill [facility] [address] [place] [phone] Michelle Shannon MD [address] [place] [phone] Medications Refill Social History Tobacco Use [...] Dispensed Refills Start Date End Da te DULoxetine (CYMBALTA) 60 mg capsule Take 1 Cap by mouth daily. 90 Cap 1 12/26/2020 06/08/2021 documented in this encounter Miscellaneous Notes * Telephone Encounter - Es Galan - 12/26/2020 1642 EDT Refill. documented in this encounter Plan of Treatment Upcoming Encounters Date Type Department Care Team (Late st Contact Info) Description 06/08/2024 13:30 EDT Office Visit [facility] [address] [place], [place] [phone] Michelle Shannon MD [address] [place] [phone] documented as of this encounter Visit Diagnoses Not on filedocumented in this encounter Discontinued Medications Medication Sig Discontinue Reason Start Date End Da te DULoxetine (CYMBALTA) 60 mg capsule Take 1 Cap by mouth daily. Reorder 09/12/2020 12/26/2020 documented as of this encounter Care Teams Flying Squad Worker Relationship Specialty Start Date End Date Michelle Shannon MD [address] [place] [phone] PCP - General 09/08/11 documented as of this encounter
--- OUTSIDE RECORDS SUMMARY | 2024-04-28 15:54 | XMS_ITS | Encounter Summary ---
Author Organization [facility] Address [address] [place] [address] Care Team Providers Care Pre Sales Network Engineer Name Role Phone Michelle Shannon MD Primary Care Provider + Reason for Visit * Reason Onset Date Comments Medications Refill 08/20/2020 Encounter Details Date Type Department Care Team (Late st Contact Info) Description 08/20/2020 Refill [facility] [address] [place] [phone] Chanel Mac RN Medications Refill Social History Tobacco Use [...] LORazepam (ATIVAN) 1 mg tablet Take 1 Tab by mouth 2 times daily. Daily Max: 2 mg 60 Tab 08/20/2020 11/24/2020 documented in this encounter Miscellaneous Notes * Telephone Encounter - Chanel Mac RN - 08/20/2020 0916 EST Pt called to request refill on lorazepam 1mg Po q bid prn . Last sent in 06/17/20 #60/0 last visit .CHANEL MAC RN documented in this encounter Plan of Treatment Upcoming Encounters Date Type Department Care Team (Late st Contact Info) Description 06/08/2024 13:30 EDT Office Visit [facility] [address] [place], [place] [phone] Michelle Shannon MD [address] [place] [phone] documented as of this encounter Visit Diagnoses Not on filedocumented in this encounter Discontinued Medications Medication Sig Discontinue Reason Start Date End Da te LORazepam (ATIVAN) 1 mg tablet Take 1 Tab by mouth 2 times daily. Daily Max: 2 mg Reorder 06/17/2020 08/20/2020 documented as of this encounter Care Teams Pre Sales Network Engineer Relationship Specialty Start Date End Date Michelle Shannon MD [address] [place] [phone] PCP - General 09/08/11 documented as of this encounter
--- OUTSIDE RECORDS SUMMARY | 2024-04-28 15:54 | XMS_ITS | Encounter Summary ---
Author Organization [facility] Address [address] [place] [address] Care Team Providers Care Wildlife Biology Internship Name Role Phone Michelle Shannon MD Primary Care Provider + Reason for Visit * Reason Onset Date Comments Medications Refill 09/24/2020 Encounter Details Date Type Department Care Team (Late st Contact Info) Description 09/24/2020 Refill [facility] [address] [place] [phone] Michelle Shannon MD [address] [place] [phone] Medications Refill Social History Tobacco Use [...] Start Date End Da te dextroamphetamine-amphetam ine (ADDERALL XR) 30 mg XR capsule Take 1 Cap by mouth 2 times daily. Daily Max: 2 Caps 56 Cap 09/24/2020 10/29/2020 documented in this encounter Miscellaneous Notes * Telephone Encounter - Janna Tamayo LPN - 09/24/2020 1325 EST Refill request documented in this encounter Plan of Treatment Upcoming Encounters Date Type Department Care Team (Late st Contact Info) Description 06/08/2024 13:30 EDT Office Visit [facility] [address] [place], [place] [phone] Michelle Shannon MD [address] [place] [phone] documented as of this encounter Visit Diagnoses Not on filedocumented in this encounter Discontinued Medications Medication Sig Discontinue Reason Start Date End Da te dextroamphetamine-ampheta mine (ADDERALL XR) 30 mg XR capsule Take 1 Cap by mouth 2 times daily. Daily Max: 2 Caps Reorder 07/18/2020 09/24/2020 documented as of this encounter Care Teams Wildlife Biology Internship Relationship Specialty Start Date End Date Michelle Shannon MD [address] [place] [phone] PCP - General 09/08/11 documented as of this encounter
--- OUTSIDE RECORDS SUMMARY | 2024-04-28 15:54 | XMS_ITS | Encounter Summary ---
Author Organization [facility] Address [address] [place] [address] Care Team Providers Care Saddle Stitch Operator Name Role Phone Michelle Shannon MD Primary Care Provider + Reason for Referral * Office Procedure (Routine) - Receiving Office to Obtain Authorization Specialty Diagnoses / Procedures Referred By Thelma long Referred To Contact Neurology Diagnoses Radicular pain in left arm Procedures EMG/NERVE CONDUCTION STUDY Michelle Shannon MD [address] [place] [phone] [facility] [address] [place] [address] Referral ID Status Reason Start Date Expiration Date Visits Requested Visits Authorized [id number] Receiving Office to Obtain Authorization 04/15/2021 1 1 Reason for Visit * Reason Comments Shoulder Pain Left, started 4-6 da ys ago Hand Problem left 4th, 5th finger s tingling Encounter Details Date Type Department Care Team (Late st Contact Info) Description 04/15/2021 15:30 EDT Office Visit [facility] [address] [place] [phone] Michelle Shannon MD [address] [place] [phone] Radicular pain in left arm (Primary Dx) Social History Tobacco Use Types [...] Sign Reading Time Taken Comments Blood Pressure 104/78 04/15/2021 1535 EDT Pulse 76 04/15/2021 1535 EDT Temperature 36.7 ??C (98.1 ??F) 04/15/2021 1535 EDT Respiratory Rate - - Oxygen Saturation 98% 04/15/2021 1535 EDT Inhaled Oxygen Concentration - - Weight 87.5 kg (193 lb) 04/15/2021 1535 EDT Height - - Body Mass Index 33.13 11/17/20202028 EST documented in this encounter Ordered Prescriptions Prescription Sig Dispensed Refills Start Date End Da te gabapentin (NEURONTIN) 300 mg capsule Take 1 capsule by mouth 3 times daily. 90 capsule 2 04/15/2021 09/09/2021 documented in this encounter Progress Notes * Michelle Shannon MD - 04/15/2021 1530 EDT Subjective: Patient ID: Jane Blair is an 45 y.o. female. Chief Complaint Patient presents with ??? Shoulder Pain Left, started 4-6 days ago ??? Hand Problem left 4th, 5th fingers tingling HPI Jane presents today for the sudden onset of left shoulder pain and tingling within her left upper extremity. The pain began in left shoulder about 5 days ago. She woke up with the symptoms and cannotrecall any specific injury. The pain began radiating through her entire upper arm with a tingling sensation in the 4-5th fingers and along the inferior portion of the forearm and upper arm up to the axilla. She also noticed throbbing in the left forearm. She is noticing pain in the left posterior neck with flexion. She does tend to sleep on her side with her elbows flexed. Patient Active Problem List Diagnosis ??? Narcolepsy without cataplexy ??? REM sleep behavior disorder ??? Migraine with aura ??? Episodic mood disorder (HCC-CMS) ??? MDD (major depressive disorder), recurrent episode, moderate (HCC-CMS) ??? GERD without esophagitis ??? Vitamin D [...] 2 weeks then increase to 1200mg twice [id number] Cap 3 ??? adapalene 0.3 % gel [...] Take 1 Tab by mouth at bedtime. 90 Tab 2 ??? bicfaeh-leavegbzxsvvk-idxajbkr (EXCEDRIN MIGRAINE) 250-250-65 mg per tablet Take 1 Tab by mouthevery 6 hours as needed. Indications: MIGRAINE ??? betamethasone dipropionate 0.05 % lotion Apply topically 2 times daily. Twice daily as needed for itch. Do not let it drip onto the face 60 mL 3 ??? cephalexin (KEFLEX) 500 mg capsule Take 1 Cap by mouth every 6 hours. 20 Cap 0 ??? cholecalciferol, Vitamin D3, 1,000 unit tablet Take 1,000 Units by mouth daily. ??? clonazePAM (KLONOPIN) 1 mg tablet TAKE 1 TABLET BY MOUTH DAILY AT BEDTIME. MAX: 1 MG 28 Tab 1 ??? dextroamphetamine-amphetamine (ADDERALL XR) 30 mg XR capsule Take 1 capsule by mouth 2 times daily. Daily Max: 2 Capsules 56 capsule 0 ??? DULoxetine (CYMBALTA) 60 mg capsule Take 1 Cap by mouth daily. 90 Cap 1 ??? ferrous gluconate (FERGON) 324 mg (38 mg iron) tablet Take 1 Tab by mouth daily with breakfast.100 Tab 0 ??? fluticasone propionate (FLONASE) 50 mcg/actuation nasal spray SHAKE LIQUID AND USE 2 SPRAYS IN EACH NOSTRIL DAILY 3 Bottle 0 ??? IBUPROFEN (ADVIL ORAL) Take by mouth [...] daily. Daily Max: 2 mg 60 Tab 0 ??? melatonin 10 mg capsule Take by mouth. ??? metroNIDAZOLE (METROGEL) 0.75 % gel Apply topically 2 times daily. ??? mupirocin (BACTROBAN) 2 % ointment Apply topically to affected area 2 times daily. For 5 days 22 g 3 ??? naratriptan (AMERGE) 2.5 mg tablet Take as directed. 12 Tab 11 ??? OMEPRAZOLE ORAL Take 40 mL by [...] Allergies Review of Systems Musculoskeletal: Positive for neck pain. Skin: Negative for itching and rash. Neurological: Positive for sensory change. Negative for weakness. - See HPI Objective: BP 104/78 Pulse 76 Temp 36.7 ??C (98.1 ??F) (Temporal) Wt 87.5 kg (193 lb) SpO2 98% BMI 33.13 kg/m?? Physical Exam Constitutional: Well groomed, well nourished and appears comfortable. No distress Musculoskeletal: Left shoulder: ROM demonstates abduction to 90 degrees, slightly diminished internal rotation, Full forward flexion. Neck: Tender over the supraspinatus muscle and trapezius muscle on the left. Experiences pain when flexing at the neck, but not with neck extension or rotation Tender over the left ulnar groove which reproduces tingling proximally and distally Interosseous muscle strength is preserved within the left hand Grasp strength is normal bilaterally Neurological: Decreased sensation to light touch of the left fifth finger and half of the fourth finger. Biceps and brachioradialis reflexes are both diminished on the left, normal on the right Assessment: Plan: Jane was seen today for shoulder pain and hand problem. Diagnoses and all orders for this visit: Radicular pain in left arm - XR CERVICAL SPINE 2-3 VIEWS; Future - EMG/NERVE CONDUCTION STUDY Other orders - gabapentin (NEURONTIN) 300 mg capsule; Take 1 capsule by mouth 3 times daily. Left upper extremity radiculopathy following the C8-T1 nerve distribution. Possible ulnar neuropathy at the elbow versus cervical impingement. X-ray cervical spine Schedule EMG Discussed a trial of gabapentin. She will start 300 mg at at bedtime and gradually increase to 3 times daily every 3 days We discussed avoiding leaning on the elbow and trying to avoid sleeping with the elbow flexed at night Michelle Shannon MD documented in this encounter Plan of Treatment Upcoming Encounters Date Type Department Care Team (Late st Contact Info) Description 06/08/2024 13:30 EDT Office Visit [facility] [address] [facility] [address] [place] [address] Michelle Shannon MD [address] [place] [phone] Scheduled Orders Name Type Priority Associated Diagnoses Orde r Schedule EMG/NERVE CONDUCTION STUDY Procedures Routine Radicular pain in left arm Ordered: 04/15/2021 documented as of this encounter Visit Diagnoses Diagnosis Radicular pain in left arm- Primary Neuralgia, neuritis, and radiculitis, unspecified documented in this encounter Care Teams Saddle Stitch Operator Relationship Specialty Start Date End Date Michelle Shannon MD [address] [place] [phone] PCP - General 09/08/11 documented as of this encounter
--- OUTSIDE RECORDS SUMMARY | 2024-04-28 15:54 | XMS_ITS | Encounter Summary ---
Author Organization [facility] Address [address] [place] [address] Care Team Providers Care Wire Inspector Name Role Phone Michelle Shannon MD Primary Care Provider + Reason for Visit * Reason Onset Date Comments Migraine 04/29/2021 Encounter Details Date Type Department Care Team (Late st Contact Info) Description 04/29/2021 Telephone [facility] [address] [place] [phone] Michelle Shannon MD [address] [place] [phone] Migraine Social History Tobacco Use Types Packs/Day Years [...] * Telephone Encounter - Mandi Leon - 05/06/2021 1303 EDT LM for pt. Have not heard back. Mandi Leon MA * Telephone Encounter - Mandi Leon - 04/29/2021 0943 EDT Pt had a migraine on Tuesday. She took immerge. It didn't help because she took it while the migraine was already in progress. Pt wants to know if there is a medication that she can take to stop migraines while they are happening? Mandi Leon MA documented in this encounter Plan of Treatment Upcoming Encounters Date Type Department Care Team (Late st Contact Info) Description 06/08/2024 13:30 EDT Office Visit [facility] [address] [facility] [address] [place], [place] [phone] Michelle Shannon MD [address] [place] [phone] documented as of this encounter Visit Diagnoses Not on filedocumented in this encounter Care Teams Wire Inspector Relationship Specialty Start Date End Date Michelle Shannon MD [address] [place] [phone] PCP - General 09/08/11 documented as of this encounter
--- OUTSIDE RECORDS SUMMARY | 2024-04-28 15:54 | XMS_ITS | Encounter Summary ---
Author Organization [facility] Address [address] [place] [address] Care Team Providers Care Rn Clinical Name Role Phone Michelle Shannon MD Primary Care Provider + Reason for Visit * Reason Comments Skin Lesion Encounter Details Date Type Department Care Team (Late st Contact Info) Description 02/25/2021 15:30 EDT Office Visit [facility] [address] [place] [phone] Michelle Shannon MD [address] [place] [phone] Ingrown hair (Primary Dx) Social History Tobacco Use Types [...] Sign Reading Time Taken Comments Blood Pressure 100/64 02/25/2021 1530 EDT Pulse 96 02/25/2021 1530 EDT Temperature 36.3 ??C (97.4 ??F) 02/25/2021 1530 EDT Respiratory Rate - - Oxygen Saturation 96% 02/25/2021 1530 EDT Inhaled Oxygen Concentration - - Weight 88.4 kg (194 lb 12.8 oz) 02/25/2021 1530 EDT Height - - Body Mass Index 33.44 11/17/20202028 EST documented in this encounter Ordered Prescriptions Prescription Sig Dispensed Refills Start Date End Da te cephalexin (KEFLEX) 500 mg capsule Take 1 Cap by mouth every 6 hours. 20 Cap 02/25/2021 07/31/2021 clonazePAM (KLONOPIN) 1 mg tablet TAKE 1 TABLET BY MOUTH DAILY AT BEDTIME. MAX: 1 MG 28 Tab 1 02/25/2021 05/07/2021 documented in this encounter Progress Notes * Michelle Shannon MD - 02/25/2021 1530 EDT Jane Sheldon Johnnie 45 y.o. 02/25/2021 Subjective: Chief Complaint Patient presents with ??? Skin Lesion HPI Moca a lump in the left groin 1 week ago. She picked it, but could not see the area. Since then it has been draining serous drainage with slight blood. The lump persists and is about the size of the tip of her pinky finger. Also becoming more painful. She has been applying topical metronidazole, alcohol and peroxide, but these are not helping. Active Problem List Patient Active Problem List Diagnosis ??? Narcolepsy without cataplexy ??? REM sleep behavior disorder ??? Migraine with aura ??? Episodic mood disorder (HCC-CMS) ??? MDD (major depressive disorder), recurrent episode, moderate (HCC-CMS) ??? GERD without esophagitis ??? Vitamin D deficiency ??? Allergic rhinitis ??? Anxiety ??? Encounter for sterilization [facility] Past Medical History: Diagnosis Date ??? Allergic [...] ??? ARIPiprazole (ABILIFY) 10 mg tablet ??? yksojmd-qjnitsukmupoe-npaegtll (EXCEDRIN MIGRAINE) 250-250-65 mg per tablet ??? betamethasone dipropionate 0.05 % lotion ??? cephalexin (KEFLEX) 500 mg capsule ??? cholecalciferol, Vitamin D3, 1,000 unit tablet ??? clonazePAM (KLONOPIN) 1 mg tablet ??? dextroamphetamine-amphetamine (ADDERALL XR) 30 mg XR capsule ??? DULoxetine (CYMBALTA) 60 mg capsule ??? ferrous gluconate (FERGON) 324 mg (38 mg iron) tablet ??? fluticasone propionate (FLONASE) 50 mcg/actuation nasal spray ??? IBUPROFEN (ADVIL ORAL) ??? ketoconazole (NIZORAL) 2 % shampoo ??? loratadine (CLARITIN) 10 mg tablet ??? LORazepam (ATIVAN) 1 mg tablet ??? melatonin 10 mg capsule ??? metroNIDAZOLE (METROGEL) 0.75 % gel ??? mupirocin (BACTROBAN) 2 % ointment ??? naratriptan (AMERGE) 2.5 mg tablet ??? OMEPRAZOLE ORAL ??? topiramate (TOPAMAX) 50 mg tablet ??? tretinoin (RETIN-A) 0.025 % cream No current facility-administered medications for this visit. Review of Systems Constitutional: Negative for chills and fever. Skin: Negative for itching and rash. OBJECTIVE: Vitals: BP 100/64 Pulse 96 Temp 36.3 ??C (97.4 ??F) (Temporal) Wt 88.4 kg (194 lb 12.8 oz) SpO2 96% BMI 33.44 kg/m?? Skin: 1 cm red nodule over the left mons pubis. Central ulceration approx 4 mm across. No purulenceor fluctuance, but tender to palpation ASSESSMENT and PLAN Jane was seen today for skin lesion. Diagnoses and all orders for this visit: Ingrown hair Other orders - clonazePAM (KLONOPIN) 1 mg tablet; TAKE 1 TABLET BY MOUTH DAILY AT BEDTIME. MAX: 1 MG - cephalexin (KEFLEX) 500 mg capsule; Take 1 Cap by mouth every 6 hours. Persistent ulcer over the mons pubis, likely started as an ingrown hair. Avoid picking Stop using alcohol and peroxide Will start Keflex 500 qid x 5 days Bathing is ok Avoid shaving until resolves Michelle Shannon MD documented in this encounter Plan of Treatment Upcoming Encounters Date Type Department Care Team (Late st Contact Info) Description 06/08/2024 13:30 EDT Office Visit [facility], [address] [facility] [address] [place] [address] Michelle Shannon MD [address] [place] [phone] documented as of this encounter Visit Diagnoses Diagnosis Ingrown hair- Primary Other specified disease of hair and hair follicles documented in this encounter Discontinued Medications Medication Sig Discontinue Reason Start Date End Da te clonazePAM (KLONOPIN) 1 mg tablet TAKE 1 TABLET BY MOUTH DAILY AT BEDTIME. MAX: 1 MG Reorder 01/26/2021 02/25/2021 documented as of this encounter Care Teams Rn Clinical Relationship Specialty Start Date End Date Michelle Shannon MD [address] [place] [phone] PCP - General 09/08/11 documented as of this encounter
--- OUTSIDE RECORDS SUMMARY | 2024-04-28 15:54 | XMS_ITS | Encounter Summary ---
Author Organization [facility] Address [address] [place] [address] Care Team Providers Care Senior Environmental Engineer Name Role Phone Michelle Shannon MD Primary Care Provider + Encounter Details Date Type Department Care Team (Late st Contact Info) Description 07/08/2020 8:50 EDT - 07/08/2020 11:05 EDT Surgery [facility] OR [address] [place] [address] [id number] Kong Michele MD [address] [place] [address], [facility], Level [address] [place] [address] Laparoscopic bilateral salpingectomy, nexplanon removal [48965 (CPT??)] Surgery Details Date/Time Status Location OR Service Patient Class Case Cl ass Case Type Trauma Case? 07/08/20 0850 Posted [facility] OR [address] Outpatient Surgery H - Elective Panel 1 Procedure LRB Anes Op Region Wound Class Comments Laparoscopic bilateral salpingectomy, nexplanon removal Bilateral Patient Choice Abdomen Class I/ Clean Nexplanon removal Left Patient Choice Upper Arm Class I / Clean Surgeon Surgeon Role Service Panel Kong Michele MD Primary Gynecology 1 documented in this encounter Social History Tobacco Use Types Packs/Day [...] Sign Reading Time Taken Comments Blood Pressure 110/81 07/08/2020647 EDT Pulse - - Temperature 35.5 ??C (95.9 ??F) 07/08/2020647 EDT Respiratory Rate 16 07/08/2020647 EDT Oxygen Saturation 97% 07/08/2020647 EDT Inhaled Oxygen Concentration - - Weight 87 kg (191 lb 12.8 oz) 07/08/2020647 ED T Height 162.6 cm (5' 4) 07/08/2020647 EDT Body Mass Index 32.92 07/08/2020647 EDT documented in this encounter Discharge Instructions * Discharge Instructions* Halie Reyes RN - 07/08/2020 12:25 EDT NOTHING IN VAGINA FOR 48 HOURS. ACETAMINOPHEN EVERY 6 HOURS NEEDED FOR PAIN IBUPROFEN EVERY 6 HOURS NEEDED FOR PAIN. OXYCODONE, NEEDED FOR SEVERE PAIN UNRELIEVED BY TYLENOL AND IBUPROFEN. Oxycodone can be very constipating, Do Not drive while taking. FOLLOW UP NEEDED WITH DR. MICHELE documented in this encounter Medications at Time of Discharge Medication Sig Dispensed Refills Start Date End Date albuterol 90 mcg/actuation inhaler Inhale 1-2 Puffs as directed every 6 hours as needed (shortness of breath). Or 15-30 minutes prior to exercise 1 Inhaler 03/16/2018 aspirin-acetaminophen- caffeine (EXCEDRIN MIGRAINE) 250-250-65 mg per tabletIndications:migr stefan Take 1 Tablet by mouth every 6 hours as needed. metroNIDAZOLE (METROGEL) 0.75 % gel Apply topically 2 times daily. ARIPiprazole (ABILIFY) 10 mg tablet Take 1 Tab by mouth at bedtime. 90 Tab 2 12/24/2019 10/29/2020 Azelaic Acid (FINACEA) 15 % gel Apply topically 2 times daily. 02/06/2021 cholecalciferol, Vitamin D3, 1,000 unit tablet Take 1 Tablet by mouth daily. 04/25/2023 ciclopirox (PENLAC) 8 % solution Apply to affected nail daily. Removed layers weekly with rubbing alcohol 1 Bottle 2 03/26/2020 09/30/2020 clonazePAM (KLONOPIN) 1 mg tablet TAKE 1 TABLET BY MOUTH DAILY AT BEDTIME. MAX: 1 MG 28 Tab 2 05/30/2020 10/13/2020 dextroamphetamine-amph etamine (ADDERALL XR) 30 mg XR capsule Take 1 Cap by mouth 2 times daily. Daily Max: 2 Caps 56 Cap 06/04/2020 07/18/2020 DULoxetine (CYMBALTA) 60 mg capsule Take 1 Cap by mouth daily. 90 Cap 1 02/07/2020 09/12/2020 ferrous gluconate (FERGON) 324 mg (38 mg iron) tablet Take 1 Tab by mouth daily with breakfast. 100 Tab 06/17/2020 10/07/2020 fluticasone propionate (FLONASE) 50 mcg/actuation nasal spray SHAKE LIQUID AND USE 2 SPRAYS IN EACH NOSTRIL DAILY 3 Bottle 03/31/2020 02/06/2021 IBUPROFEN (ADVIL ORAL) Take by mouth daily as needed. 05/19/2023 loratadine (CLARITIN) 10 mg tablet Take 1 Tab by mouth daily. 100 Tab 1 09/16/2017 10/07/2021 LORazepam (ATIVAN) 1 mg tablet Take 1 Tab by mouth 2 times daily. Daily Max: 2 mg 60 Tab 06/17/2020 08/20/2020 melatonin 10 mg capsule Take by mouth. 05/06/2021 naratriptan (AMERGE) 2.5 mg tabletIndications:migr stefan Take as directed. Indications: MIGRAINE 12 Tab 11 03/24/2012 02/06/2021 OMEPRAZOLE ORAL Take 40 mL by mouth 2 times daily. 02/16/2022 topiramate (TOPAMAX) 50 mg tablet Take 1 Tab by mouth 2 times daily. 180 Tab 1 06/30/2020 01/14/2021 documented as of this encounter Discharge Disposition Disposition Code Departure Means Destination Comment s Home or Self Snf home with mom documented in this encounter H&P Notes * Kong Michele MD - 07/08/2020 1315 EDT The preoperative history and physical which was performed within 30 days of this procedure has been reviewed and the clinically appropriate elements of the physical examination have been repeated. There are no changes to the documented history and physical or if so such changes are documented below Kong Michele MD 07/18/2020 10:45 documented in this encounter OR Notes * OR PreOp - Conchis Jordan RN - 07/08/2020 0730 EDT Preop Covid DOS screening questionnaire Please document by exception (only check those that apply). Have you had any of the following symptoms recently?no Yes Chronic ? Cough Shortness of breath or difficulty breathing Fever Chills Fatigue Muscle or body aches Severe Headache New loss of taste or smell Sore throat Congestion or runny nose Rash Nausea, vomiting, or diarrhea (rare in adults. More common in children) Were you covid tested? yes If yes, have you self-isolated/quarantined since your test? yes See admission vital signs documentation for admission temperature. * OR Surgeon - Kong Michele MD - 07/08/2020 0616 EDT OPERATIVE REPORT SERVICE DATE: 07/08/2020 PREOPERATIVE DIAGNOSIS: Desires sterilization. POSTOPERATIVE DIAGNOSIS: Desires sterilization. PROCEDURE: Laparoscopic bilateral salpingectomy, removal of Nexplanon. ANESTHESIA: General. SURGEON: Kong Michele MD PHARMACEUTICAL COMPOUNDING SUPERVISOR: INDICATIONS: The patient is a 45-year-old woman who has a Nexplanon in who is dissatisfied with hercurrent method of contraception. She desires permanent sterilization. She is aware of the risks of failure as well as the risks of laparoscopy. FINDINGS: The pelvis was inspected. There was a small subserosal fibroid near the right cornua measuring 1.5 cm. The remainder of the anatomy including tubes, ovaries, and uterus were normal. NARRATIVE: Under satisfactory general anesthesia, the patient was placed in the dorsal lithotomy position and prepped and draped in the usual sterile manner. Attention was then taken to the pelvis where a speculum was placed into the vagina. The cervix was grasped on its anterior lip with a tenaculum. The cervix was dilated with small dilators and a sound was placed and taped to the tenaculum foruterine mobilization. A Beckford catheter was placed. Attention was then turned to the abdomen where asmall incision was made in the base of the umbilicus after instilling 0.25% Marcaine. The incision was made and elevating the umbilicus with penetrating towel clips, a Veress needle was inserted intothe abdominal cavity. There was free flow of fluid. The 10 mm laparoscopic trocar was then placed under direct visualization into the abdominal cavity. There were no visceral injuries noted. Two other trocars were placed just inside the iliac crest on either side after anesthetizing the skin and making incisions. These were done under direct visualization. The bilateral salpingectomy was performed with a LigaSure. Each tube was elevated away from the ovary and the mesosalpinx was cauterized andcut up to the uterus where the tube was transected and cut. The tubes were removed through the 10 mm port using the aid of a 5 mm laparoscope. The abdomen was inspected and there was no bleeding noted. While the incisions were being closed, the Nexplanon, which is in the left upper arm, was removedin the usual fashion. This was bandaged afterwards. All the instruments were removed including the sound and the tenaculum, the Beckford and the patient was placed supine, extubated, and returned to recovery room in satisfactory condition. FLUIDS IN: Ringer's lactate. ESTIMATED BLOOD LOSS: Minimal. SPECIMENS: Left and right fallopian tube. COMPLICATIONS: None. Unless otherwise noted, there were no complications, no blood loss, no cultures obtained, no specimens removed, and no drains retained. Kong Michele MD / Confirmation: [id number] Dictation ID: [id number] cc: * Preprocedure Instructions - Chely Mcleod RN - 07/05/2020 1221 EDT COVID 19 Screening Perioperative at time of PAT Please document by exception (only check those that apply). Have you had any of the following symptoms recently?NO Yes Chronic ? Cough Shortness of breath or difficulty breathing Fever Chills Fatigue Muscle or body aches Severe Headache New loss of taste or smell Sore throat Congestion or runny nose Rash Nausea, vomiting, or diarrhea (rare in adults. More common in children) Please elaborate if yes: If a chronic symptom is reported use your judgement if an anesthesia review is needed. Have you been in close contact with someone who has been diagnosed with Covid 19? NO (close contact, within 6 feet of any person known to have Coronavirus in the past 14 days) If past COVID + test results in chart: ??? Complete call, Place for Anesthesia Review ??? Do not give COVID+ DOS arrival instructions unless anes review deems necessary Negative COVID screen: Please file negative COVID screening under a progress note Negative screening is no symptoms or patient reporting a chronic symptom that does not need an anesthesia review Positive COVID screen: Patient answers yes to the question(s) and it is not a chronic symptom RN to flag this chart for anesthesia review and complete call Please file positive COVID screening under a PAT note If patient develops any of these symptoms between now and their surgery date instruct them to call us back at [phone] to report symptoms (If patient is in Surgical Admissions and answers yes, please notify Surgery and Anesthesia team). Follow proper precautions- yellow mask to patient/family. [place]: Visitor Policy: OP- one non-sick escort in waiting room, no visitors/escort in PreOp, one visitor in PACU for 10 mins at end of recovery Exceptions: Child-1 parent, special needs- 1 caregiver For safety concerns on ride home: second parent or caregiver may come to hospital but will have to wait in cell phone lot IP- One non-sick visitor/escort in waiting room, no visitors/escort in PreOp, one visitor in PACU for 10 mins at end of recovery. One designated visitor is allowed to visit the patient on the in patient unit. Pediatric patient: ??? Both parents can come with child DOS, one is allowed with child in PreOp/PACU, one has to wait in the waiting room ??? Due to COVID 19 no parents are allowed to go back to OR. ??? Explain IV/Mask induction. IV or mask will be available for pedi patients who are asymptomatic and test COVID negative. ??? If parent declines or no test results, Pt will get IV in PreOp, except PE tubes. For State tracking purposes, the parents of these children will be asked to consent to having their child COVID tested under anesthesia. ??? Unsedated children will be allowed one parents in the OR room for support. ??? RN to provide education on IV's and request Emla to be placed (RX from PCP) prior to coming in with them. ? ? Patient > 1 yo: Emla takes one hour to work, place quarter size amount on 4 places - top of hands and inner elbow, cover with tegaderm or saran wrap. Children under age of 16 y.o. are not permitted. Only ADA service animals are permitted into the hospital. All other animals, including previously approved therapy/support animals, are not allowed at this time. (No animals will be allowed into Preop, OR, or PACU) Visitor Policy Candida Islas: - One non-sick escort/visitor in waiting room, no visitors/escort in PeriOp - Same exceptions apply as main campus: children and special needs - Visitors/rides home that are not in waiting room should be within 15 mins away - Visitors must have mask for pickup * Preprocedure Instructions - Chely Mcleod RN - 07/05/2020 1219 EDT Jane Blair has been instructed as follows regarding medication administration for the day of thescheduled procedure. Date of Surgery: 07/08/20 Instructions for Taking Medications Day of Surgery Medication Sig Last Dose Hold DOS Take DOS albuterol 90 mcg/actuation inhaler Inhale 1-2 Puffs as directed every 6 hours as needed (shortness of breath). Or 15-30 minutes prior to exercise PRN ARIPiprazole (ABILIFY) 10 mg tablet Take 1 Tab by mouth at bedtime. Takes hs yxgbqhm-dasgisvfkyfoc-gywgqdvg (EXCEDRIN MIGRAINE) 250-250-65 mg per tablet Take 1 Tab by mouth every 6 hours as needed. Indications: MIGRAINE yes Azelaic Acid (FINACEA) 15 % gel Apply topically 2 times daily. yes cholecalciferol, Vitamin D3, 1,000 unit tablet Take 1,000 Units by mouth daily. yes ciclopirox (PENLAC) 8 % solution Apply to affected nail daily. Removed layers weekly with rubbing alcohol yes clonazePAM (KLONOPIN) 1 mg tablet TAKE 1 TABLET BY MOUTH DAILY AT BEDTIME. MAX: 1 MG Takes hs dextroamphetamine-amphetamine (ADDERALL XR) 30 mg XR capsule Take 1 Cap by mouth 2 times daily. Daily Max: 2 Caps yes DULoxetine (CYMBALTA) 60 mg capsule Take 1 Cap by mouth daily. yes ferrous gluconate (FERGON) 324 mg (38 mg iron) tablet Take 1 Tab by mouth daily with breakfast. yes fluticasone propionate (FLONASE) 50 mcg/actuation nasal spray SHAKE LIQUID AND USE 2 SPRAYS IN EACHNOSTRIL DAILY PRN IBUPROFEN (ADVIL ORAL) Take by mouth daily as needed. 07/05/20 loratadine (CLARITIN) 10 mg tablet Take 1 Tab by mouth daily. yes LORazepam (ATIVAN) 1 mg tablet Take 1 Tab by mouth 2 times daily. Daily Max: 2 mg yes melatonin 10 mg capsule Take by mouth. Takes hs metroNIDAZOLE (METROGEL) 0.75 % gel Apply topically 2 times daily. yes naratriptan (AMERGE) 2.5 mg tablet Take as directed. Indications: MIGRAINE yes OMEPRAZOLE ORAL Take 40 mL by mouth 2 times daily. yes topiramate (TOPAMAX) 50 mg tablet Take 1 Tab by mouth 2 times daily. yes No nsaids/supplements after 07/05/20 documented in this encounter Plan of Treatment Upcoming Encounters Date Type Department Care Team (Late st Contact Info) Description 06/08/2024 13:30 EDT Office Visit [facility] [address] [place] [address] Michelle Shannon MD [address] [place] [address] documented as of this encounter Procedures Procedure Name Priority Date/Time Associated Diagnosis Comments SURGICAL PATHOLOGY Routine 07/08/2020 10 :42 EDT REMOVAL, DRUG DELIVERY IMPLANT 07/08/2020 9:30 EDT Encounter for sterilization LAPAROSCOPY, ABDOMEN, PERITONEUM, AND OMENTUM, DIAGNOSTIC, WITH SPECIMEN COLLECTION BY WASHING 07/08/2020 9:30 EDT Encounter for sterilization TEST, URINE STAT 07/08/2020 7:37 EDT documented in this encounter Results * SURGICAL PATHOLOGY (07/08/2020 10:42 EDT) Final Diagnosis A. FALLOPIAN TUBES, BILATERAL SALPINGECTOMY: - Benign fallopian tubes including fimbriated ends and complete cross-sections 07/11/2020 9:34 [facility] Attestation There was significant resident/fellow involvement in the diagnostic evaluation of this case. By the signature below, the attending physician certifies that they have personally conducted a gross and/or microscopic examination of the described specimens and rendered or confirmed the above diagnosis. 07/11/2020 9:34 [facility] at 0934 Clinical History Encounter for sterilization 07/11/2020 9:34 [facility] Gross Description A. Received a normal saline labelled with proper patient identification (initials with W,T) and bilateral fallopian tubes are two fimbriated fallopian tubes (4.2 cm in length x 1.4 cm in diameter and 3.6 cm in length by 1.2 cm in diameter). The serosa is sanabria-purple and smooth. Sectioning reveals a sanabria cut surface with a pinpoint lumen throughout. Engine Emission Technician sections of the specimen are submitted as follows: BLOCK SANDOVAL: A1-A2- entire longitudinally bisected fimbriated end and 2 cross-sections of longest fallopian tube. A3-A4- entire longitudinally bisected fimbriated end and 2 cross-sections of shortest fallopian tube. WADE STUART DO 07/09/2020 9:42 07/11/2020 9:34 [facility] Resident/Topher w: Wade Stuart DO Mattaino, Rosemary, DO 07/11/2020 9:34 [facility] Performing Lab [facility] 07/11/2020 9:34 EDT [facility] Scanned Images 07/11/2020 9:34 EDT [facility] Tissue BOTH FALLOPIAN TUBES / Unknown 07/08/2020 10:42 EDT 07/08/2020 18:03 EDT Kong Michele MD PATHOLOGY ORDERABL ES Performing Organization Address [facility] Co de Phone Number [facility] [address] [place] [address] * TEST, URINE (07/08/2020 7:37 EDT) Test, Urine Negative Negative 07/08/2020 7:46 EDT [facility] Comment:False negative resul ts may occur in women who are beyond 5-8 weeks gestation. Diagnosis of should be based on a correlation of test results with typical clinical signs and symptoms. Urine URINE SPECIMEN COLLECTION, CLEAN CATCH / Unknown Urine Collect / Unknown 07/08/2020 7:37 EDT 07/08/2020 7:39 EDT Kong Michele MD URINALYSIS ORDERAB LES Performing Organization Address [facility] Co de Phone Number [facility] [address] [place] [id number] documented in this encounter Visit Diagnoses Diagnosis Encounter for sterilization- Primary Sterilization Encounter for sterilization Sterilization documented in this encounter Admitting Diagnoses Diagnosis Encounter for sterilization Sterilization documented in this encounter Administered Medications Inactive Administered Medications - up to 3 most recent administrations Medication Order MAR Action Action Date Dose Rate Site acetaminophen (TYLENOL) tablet 1,000 mg 1,000 mg, oral, PRN, 1 dose, Starting on Tue07/08/20 at 1101, Until Tue07/08/20 at 1240, Pain, Routine, Recovery (only) Given 07/08/2020 12:40 EDT 1,000 mg atropine 0.1 mg/mL syringe 0.5 mg 0.5 mg, intravenous, PRN, Starting on Tue07/08/20 at 1101, Until Tue07/08/20 at 1523, Symptomatic HR < 50, Routine, Recovery (only) bupivacaine (PF) (MARCAINE) 0.25 % (2.5 mg/mL) injection As needed, Starting on Tue07/08/20 at 1034, Until Tue07/08/20 at 1037, Routine, Intraprocedure Given 07/08/2020 10:34 EDT 10 mL Abdom en diphenhydrAMINE (BENADRYL) injection 12.5 mg 12.5 mg, intravenous, PRN, 1 dose, Starting on Tue07/08/20 at 1101, Until Tue07/08/20 at 1523, nausea, Routine, Recovery (only) fentaNYL citrate (PF) injection 25-50 mcg 25-50 mcg, intravenous, EVERY 5 MIN PRN, Starting on Tue07/08/20 at 1101, Until Tue07/08/20 at 1523, Pain, Routine, Recovery (only) HYDROmorphone (DILAUDID) tablet 2-4 mg 2-4 mg, oral, EVERY 30 MINUTES PRN, 2 doses, Starting on Tue07/08/20 at 1101, Until Tue07/08/20 at 1523, Pain, Routine, Recovery (only) HYDROmorphone (PF) (DILAUDID) 0.5 mg/0.5 mL syringe 0.3-0.5 mg 0.3-0.5 mg, intravenous, EVERY 10 MINUTES PRN, Starting on Tue07/08/20 at 1101, Until Tue07/08/20 at 1523, Pain, Routine, Recovery (only) lactated ringers (LR) infusion at 25 mL/hr, intravenous, CONTINUOUS, Starting on Tue07/08/20 at 0700, Until Tue07/08/20 at 1523, Routine, Preprocedure New Bag 07/08/2020 10:20 EDT Continued by Anesthesia 07/08/2020 9:40 EDT New Bag 07/08/2020 7:39 EDT 25 mL/hr lactated ringers (LR) infusion at 75 mL/hr, intravenous, PACU CONTINUOUS, Starting on Tue07/08/20 at 1130, Until Tue07/08/20 at 1523, Routine, Recovery (only) naloxone (NARCAN) injection 0.2 mg 0.2 mg, intravenous, PRN, Starting on Tue07/08/20 at 1101, Until Tue07/08/20 at 1523, Opioid Reversal, Routine, Recovery (only) ondansetron (PF) (ZOFRAN) injection 4 mg 4 mg, intravenous, PRN, 1 dose, Starting on Tue07/08/20 at 1101, Until Tue07/08/20 at 1523, Nausea, Vomiting, Routine, Recovery (only) sodium chloride 0.9 % irrigation As needed, Starting on Tue07/08/20 at 1039, Until Tue07/08/20 at 1040, Routine, Intraprocedure Given 07/08/2020 10:39 EDT 1,000 mL Other documented in this encounter Active and Recently Administered Medications Times are shown in EDT. Continuous Medication Order 07/06/2020 07/07/2020 07/08/2020 lactated ringers (LR) infusion at 25 mL/hr, intravenous, CONTINUOUS, Starting on Tue07/08/20 at 0700, Until Tue07/08/20 at 1523, Routine, Preprocedure 0739 (New Bag - Prov ider: Conchis Jordan RN)0940 (Continued by Anesthesia - Provider: JOANNE Abbott)0941 (Anesthesia Volume Adjustment - Provider: JOANNE Abbott)1020 (New Bag - Provider: JOANNE Abbott) lactated ringers (LR) infusion at 75 mL/hr, intravenous, PACU CONTINUOUS, Starting on Tue07/08/20 at 1130, Until Tue07/08/20 at 1523, Routine, Recovery (only) 1130 (Canceled Entry - Provider: Batch Job User Admin - Comment: Automatically canceled at discontinue of medication order) PRN Medication Order 07/06/2020 07/07/2020 07/08/2020 acetaminophen (TYLENOL) tablet 1,000 mg (COMPLETED)(Linked Group 1) 1,000 mg, oral, PRN, 1 dose, Starting on Tue07/08/20 at 1101, Until Tue07/08/20 at 1240, Pain, Routine, Recovery (only) 1240 (Given - Provid er: Halie Reyes RN) atropine 0.1 mg/mL syringe 0.5 mg 0.5 mg, intravenous, PRN, Starting on Tue07/08/20 at 1101, Until Tue07/08/20 at 1523, Symptomatic HR < 50, Routine, Recovery (only) bupivacaine (PF) (MARCAINE) 0.25 % (2.5 mg/mL) injection (CANCELED) As needed, Starting on Tue07/08/20 at 1034, Until Tue07/08/20 at 1037, Routine, Intraprocedure 1034 (Given - Provid er: Kong Michele MD) diphenhydrAMINE (BENADRYL) injection 12.5 mg 12.5 mg, intravenous, PRN, 1 dose, Starting on Tue07/08/20 at 1101, Until Tue07/08/20 at 1523, nausea, Routine, Recovery (only) fentaNYL citrate (PF) injection 25-50 mcg 25-50 mcg, intravenous, EVERY 5 MIN PRN, Starting on Tue07/08/20 at 1101, Until Tue07/08/20 at 1523, Pain, Routine, Recovery (only) HYDROmorphone (DILAUDID) tablet 2-4 mg 2-4 mg, oral, EVERY 30 MINUTES PRN, 2 doses, Starting on Tue07/08/20 at 1101, Until Tue07/08/20 at 1523, Pain, Routine, Recovery (only) HYDROmorphone (PF) (DILAUDID) 0.5 mg/0.5 mL syringe 0.3-0.5 mg 0.3-0.5 mg, intravenous, EVERY 10 MINUTES PRN, Starting on Tue07/08/20 at 1101, Until Tue07/08/20 at 1523, Pain, Routine, Recovery (only) naloxone (NARCAN) injection 0.2 mg 0.2 mg, intravenous, PRN, Starting on Tue07/08/20 at 1101, Until Tue07/08/20 at 1523, Opioid Reversal, Routine, Recovery (only) ondansetron (PF) (ZOFRAN) injection 4 mg 4 mg, intravenous, PRN, 1 dose, Starting on Tue07/08/20 at 1101, Until Tue07/08/20 at 1523, Nausea, Vomiting, Routine, Recovery (only) sodium chloride 0.9 % irrigation (CANCELED) As needed, Starting on Tue07/08/20 at 1039, Until Tue07/08/20 at 1040, Routine, Intraprocedure 1039 (Given - Provid er: Kong Michele MD - Comment: Back Table) Linked Groups Order Group 1: acetaminophen (TYLENOL) solution unit dose cup 995 mg (COMPLETED) 995 mg (rounded from 1,000 mg), oral, PRN, 1 dose, Starting on Tue07/08/20 at 1101, Until Tue07/08/20 at 1240, Pain, Routine, Recovery (only) Or acetaminophen (TYLENOL) tablet 1,000 mg (COMPLETED)Jump to med 1,000 mg, oral, PRN, 1 dose, Starting on Tue07/08/20 at 1101, Until Tue07/08/20 at 1240, Pain, Routine, Recovery (only) documented in this encounter Orders Medications Ordered That Suleman ht Not Have Been Administered Count Last Ordered Date First Ordered Date acetaminophen (TYLENOL) solu tion unit dose cup 995 mg 1 07/08/2020 atropine 0.1 mg/mL syringe 0.5 mg 1 020 diphenhydrAMINE (BENADRYL) i njection 12.5 mg 1 07/08/2020 fentaNYL citrate (PF) injection 25-50 mcg 1 07/08/2020 HYDROmorphone (DILAUDID) tablet 2-4 mg 1 HYDROmorphone (PF) (DILAUDID ) 0.5 mg/0.5 mL syringe 0.3-0.5 mg 1 07/08/2020 lactated ringers (LR) infusion 1 07/08/2020 lidocaine (PF) 10 mg/mL (1 % ) injection 2 mg 1 07/08/2020 naloxone (NARCAN) injection 0.2 mg 1 2019 ondansetron (PF) (ZOFRAN) injection 4 mg 1 07/08/2020 documented in this encounter Care Teams Senior Environmental Engineer Relationship Specialty Start Date End Date Michelle Shannon MD [address] [place] [phone] PCP - General 09/08/11 documented as of this encounter
--- OUTSIDE RECORDS SUMMARY | 2024-04-28 15:54 | XMS_ITS | Encounter Summary ---
Author Organization [facility] Address [address] [place] [address] Care Team Providers Care Washing And Screening Plant Supervisor Name Role Phone Michelle Shannon MD Primary Care Provider + Reason for Visit * Reason Onset Date Comments Medications Refill 07/18/2020 Encounter Details Date Type Department Care Team (Late st Contact Info) Description 07/18/2020 Refill [facility] [address] [place] [address] Michelle Shannon MD [address] [place] [phone] Medications Refill Social History Tobacco Use [...] daily. Daily Max: 2 Caps 56 Cap 07/18/2020 07/18/2020 documented in this encounter Miscellaneous Notes * Telephone Encounter - Michelle Adkins - 07/18/2020 1509 EDT Refill request dextroamphetamine-amphetamine (ADDERALL XR) 30 mg XR capsule Michelle Adkins documented in this encounter Plan of Treatment Upcoming Encounters Date Type Department Care Team (Late st Contact Info) Description 06/08/2024 13:30 EDT Office Visit [facility] [address] [place], [place] [phone] Michelle Shannon MD [address] [place] [phone] documented as of this encounter Visit Diagnoses Not on filedocumented in this encounter Discontinued Medications Medication Sig Discontinue Reason Start Date End Da te dextroamphetamine-ampheta mine (ADDERALL XR) 30 mg XR capsule Take 1 Cap by mouth 2 times daily. Daily Max: 2 Caps Reorder 06/04/2020 07/18/2020 documented as of this encounter Care Teams Washing And Screening Plant Supervisor Relationship Specialty Start Date End Date Michelle Shannon MD [address] [place] [phone] PCP - General 09/08/11 documented as of this encounter
--- OUTSIDE RECORDS SUMMARY | 2024-04-28 15:54 | XMS_ITS | Encounter Summary ---
Author Organization [facility] Address [address] [place] [address] Care Team Providers Care Zinc Plate Grainer Name Role Phone Michelle Shannon MD Primary Care Provider + Reason for Visit * Reason Onset Date Comments Medications Refill 11/24/2020 Encounter Details Date Type Department Care Team (Late st Contact Info) Description 11/24/2020 Refill [facility] [address] [place] [address] Michelle Shannon MD [address] [place] [phone] Medications Refill Social History Tobacco Use [...] have Coronavirus / COVID-19? No / Unsure 11/10/2020 8:45 EST documented as of this encounter Ordered Prescriptions Prescription Sig Dispensed Refills Start Date End Da te LORazepam (ATIVAN) 1 mg tablet Take 1 Tab by mouth 2 times daily. Daily Max: 2 mg 60 Tab 11/24/2020 01/29/2021 documented in this encounter Miscellaneous Notes * Telephone Encounter - Es Galan - 11/24/2020 1309 EST Refill. documented in this encounter Plan of Treatment Upcoming Encounters Date Type Department Care Team (Late st Contact Info) Description 06/08/2024 13:30 EDT Office Visit [facility] [address] [place], [place] [phone] Michelle Shannon MD [address] [place] [phone] documented as of this encounter Visit Diagnoses Not on filedocumented in this encounter Discontinued Medications Medication Sig Discontinue Reason Start Date End Da te LORazepam (ATIVAN) 1 mg tablet Take 1 Tab by mouth 2 times daily. Daily Max: 2 mg Reorder 08/20/2020 11/24/2020 documented as of this encounter Care Teams Zinc Plate Grainer Relationship Specialty Start Date End Date Michelle Shannon MD [address] [place] [phone] PCP - General 09/08/11 documented as of this encounter
--- OUTSIDE RECORDS SUMMARY | 2024-04-28 15:54 | XMS_ITS | Encounter Summary ---
Author Organization [facility] Address [address] [place] [address] Care Team Providers Care Web Worker Name Role Phone Michelle Shannon MD Primary Care Provider + Reason for Visit * Reason Onset Date Comments Medications Refill 12/23/2020 Encounter Details Date Type Department Care Team (Late st Contact Info) Description 12/23/2020 Refill [facility] [address] [place], [place] [phone] Michelle Shannon MD [address] [place] [phone] Medications Refill Social History Tobacco Use [...] Info) Description 06/08/2024 13:30 EDT Office Visit [facility] [address] [place], [place] [phone] Michelle Shannon MD [address] [place] [phone] documented as of this encounter Visit Diagnoses Not on filedocumented in this encounter Care Teams Web Worker Relationship Specialty Start Date End Date Michelle Shannon MD [address] [place] [phone] PCP - General 09/08/11 documented as of this encounter
--- OUTSIDE RECORDS SUMMARY | 2024-04-28 15:54 | XMS_ITS | Encounter Summary ---
Author Organization [facility] Address [address] [place] [address] Care Team Providers Care Neurology Technician Name Role Phone Michelle Shannon MD Primary Care Provider + Reason for Visit * Reason Onset Date Comments Medication Management 05/06/2021 Encounter Details Date Type Department Care Team (Late st Contact Info) Description 05/06/2021 Telephone [facility] [address] [place], [place] [phone] Curtis Casillas, plumbing engineering draftsperson Management Social History Tobacco Use Types Packs/Day [...] at bedtime. 100 capsule 2 05/06/2021 12/07/2021 documented in this encounter Miscellaneous Notes * Telephone Encounter - Curtis Casillas, RN - 05/06/2021 0624 EDT Pt called and LM asking if Dr. Shannon can prescribe melatonin 10mg po hs as she is having financial difficulties, hoping her insurance will cover. CURTIS CASILLAS, RN documented in this encounter Plan of Treatment Upcoming Encounters Date Type Department Care Team (Late st Contact Info) Description 06/08/2024 13:30 EDT Office Visit [facility] [address] [place] [address] Michelle Shannon MD [address] [place] [phone] documented as of this encounter Visit Diagnoses Not on filedocumented in this encounter Discontinued Medications Medication Sig Discontinue Reason Start Date End Da te melatonin 10 mg capsule Take by mouth. Reorder 05/06/20 21 documented as of this encounter Care Teams Neurology Technician Relationship Specialty Start Date End Date Michelle Shannon MD [address] [place] [phone] PCP - General 09/08/11 documented as of this encounter
--- OUTSIDE RECORDS SUMMARY | 2024-04-28 15:54 | XMS_ITS | Encounter Summary ---
Author Organization [facility] Address [address] [place] [address] Care Team Providers Care Surgical Sales Representative Name Role Phone Michelle Shannon MD Primary Care Provider + Reason for Visit * Reason Onset Date Comments Medications Refill 04/17/2021 Encounter Details Date Type Department Care Team (Late st Contact Info) Description 04/17/2021 Refill [facility] [address] [place], [place] [phone] Janna Tamayo RN Medications Refill Social History [...] by mouth daily with breakfast. 100 Tablet 04/17/2021 08/25/2021 LORazepam (ATIVAN) 1 mg tablet Take 1 Tablet by mouth 2 times daily. Daily Max: 2 mg 60 Tablet 04/17/2021 06/18/2021 documented in this encounter Miscellaneous Notes * Telephone Encounter - Janna Tamayo RN - 04/17/2021 1731 EDT Refill request documented in this encounter Plan of Treatment Upcoming Encounters Date Type Department Care Team (Late st Contact Info) Description 06/08/2024 13:30 EDT Office Visit [facility] [address] [place], [place] [phone] Michelle Shannon MD [address] [place] [phone] documented as of this encounter Visit Diagnoses Not on filedocumented in this encounter Discontinued Medications Medication Sig Discontinue Reason Start Date End Da te ferrous gluconate (FERGON) 324 mg (38 mg iron) tablet Take 1 Tab by mouth daily with breakfast. Reorder 10/07/2020 04/17/2021 LORazepam (ATIVAN) 1 mg tablet Take 1 Tab by mouth 2 times daily. Daily Max: 2 mg Reorder 01/30/2021 04/17/2021 documented as of this encounter Care Teams Surgical Sales Representative Relationship Specialty Start Date End Date Michelle Shannon MD [address] [place] [phone] PCP - General 09/08/11 documented as of this encounter
--- OUTSIDE RECORDS SUMMARY | 2024-04-28 15:54 | XMS_ITS | Encounter Summary ---
Author Organization [facility] Address [address] [place] [address] Care Team Providers Care Supervisor Steno Pool Name Role Phone Michelle Shannon MD Primary Care Provider + Reason for Visit * Reason Comments Post-op Problem Encounter Details Date Type Department Care Team (Late st Contact Info) Description 07/15/2020 14:00 EDT Office Visit [facility] [address] [place], [place] [phone] Yenifer Rolon, WOOD HEEL CEMENTER [address] [place] [phone] Post-operative state (Primary Dx); History of tubal ligation Social History Tobacco Use Types Packs/Day Years [...] Sign Reading Time Taken Comments Blood Pressure 104/74 07/15/2020 1406 EDT Pulse 90 07/15/2020 1406 EDT Temperature 36.1 ??C (97 ??F) 07/15/2020 1406 EDT Respiratory Rate - - Oxygen Saturation 98% 07/15/2020 1406 EDT Inhaled Oxygen Concentration - - Weight - - Height - - Body Mass Index - - documented in this encounter Progress Notes * Yenifer Rolon Shay, WOOD HEEL CEMENTER - 07/15/2020 1400 EDT Subjective: Patient ID: Jane Blair is an 45 y.o. female. No chief complaint on file. HPI Jane presents tearful today. She had a tubal ligation one week ago by Dr. Woo and she says shewas given no post operative appointment or after care instructions. She is unsure if she needs to have sutures removed or when she can began showering. She has not called the [facility] office to ask these questions. She says she has 5/10 pain with visible bruising. She has 3 laparoscopic sites which she says are not red or draining. During the procedure she also had her nexplanon removed. Patient Active Problem List Diagnosis ??? Narcolepsy [...] DESTRUCTION ??? TONSILLECTOMY 2019 Dr. Dumont ??? TYMPANOSTOMY TUBE PLACEMENT ??? WISDOM TOOTH [...] Alcohol Abuse Brother fatty liver and GERD Social Social History Tobacco Use ??? Smoking [...] mouth at bedtime. 90 Tab 2 ??? kxgkxzq-ohhsramlydxyc-mikirrbw (EXCEDRIN MIGRAINE) 250-250-65 mg per tablet Take 1 Tab by mouthevery 6 hours as needed. Indications: MIGRAINE ??? Azelaic Acid (FINACEA) 15 % gel Apply topically 2 times daily. ??? cholecalciferol, Vitamin D3, 1,000 unit tablet Take 1,000 Units by mouth daily. ??? ciclopirox (PENLAC) 8 % solution Apply to affected nail daily. Removed layers weekly with rubbing alcohol (Patient not taking: Reported on 07/08/2020) 1 Bottle 2 ??? clonazePAM (KLONOPIN) 1 mg tablet TAKE 1 TABLET BY MOUTH DAILY AT BEDTIME. MAX: 1 MG 28 Tab 2 ??? dextroamphetamine-amphetamine (ADDERALL XR) 30 mg XR capsule Take 1 Cap by mouth 2 times daily.Daily Max: 2 Caps 56 Cap 0 ??? DULoxetine (CYMBALTA) 60 mg capsule [...] gel Apply topically 2 times daily. ??? naratriptan (AMERGE) 2.5 mg tablet Take as directed. Indications: MIGRAINE (Patient not taking:Reported on 07/08/2020) 12 Tab 11 ??? OMEPRAZOLE ORAL Take 40 mL by mouth 2 times daily. ??? topiramate (TOPAMAX) 50 mg tablet Take 1 Tab by mouth 2 times daily. 180 Tab 1 No current facility-administered medications on file prior to visit. No Known Allergies Review of Systems Constitutional: Negative. Skin: 3 laparoscopic incision sites. Denies redness, drainage - See HPI Objective: BP 104/74 Pulse 90 Temp 36.1 ??C (97 ??F) (Tympanic) SpO2 98% Physical Exam Constitutional: General: She is not in acute distress. Appearance: She is well-developed and well-nourished. Skin: Comments: 3 incision sites (navel, one on either side of abdomen) which appear c/d/i. No erythema. Bruising present on lower abdomen Assessment: Post op tubal ligation Plan: Diagnoses and all orders for this visit: Post-operative state History of tubal ligation Post op tubal ligation- Reassurance given, surgical sites appear to be healing well without evidence of infection Sutures should be dissolvable It is ok for her to shower Follow up nadya Rolon APRN documented in this encounter Plan of Treatment Upcoming Encounters Date Type Department Care Team (Late st Contact Info) Description 06/08/2024 13:30 EDT Office Visit [facility] [address] [place] [address] Michelle Shannon MD [address] [place] [phone] documented as of this encounter Visit Diagnoses Diagnosis Post-operative state- Primary Other postprocedural status History of tubal ligation Tubal ligation status documented in this encounter Care Teams Supervisor Steno Pool Relationship Specialty Start Date End Date Michelle Shannon MD [address] [place] [phone] PCP - General 09/08/11 documented as of this encounter
--- OUTSIDE RECORDS SUMMARY | 2024-04-28 15:54 | XMS_ITS | Encounter Summary ---
Author Organization [facility] Address [address] [place] [address] Care Team Providers Care Tool Grinder Operator External Name Role Phone Michelle Shannon MD Primary Care Provider + Reason for Visit * Reason Onset Date Comments Follow-up 05/13/2021 Encounter Details Date Type Department Care Team (Late st Contact Info) Description 05/13/2021 Telephone [facility] [address] [place] [address] Michelle Shannon MD [address] [place] [phone] Follow-up Social History Tobacco Use Types Packs/Day [...] * Telephone Encounter - Mandi Leon - 05/13/2021 1142 EDT Pt reports that the Amerge is not working for her migraines. Pt vomits when she tries to take a second dose as suggested by Dr. Shannon. This MA recommended that pt come in for a visit to see one of our [facility]NAL[employer] [employer]'s. Mandi Leon MA documented in this encounter Plan of Treatment Upcoming Encounters Date Type Department Care Team (Late st Contact Info) Description 06/08/2024 13:30 EDT Office Visit [facility] [address] [facility] [address] [place], [place] [phone] Michelle Shannon MD [address] [place] [phone] documented as of this encounter Visit Diagnoses Not on filedocumented in this encounter Care Teams Tool Grinder Operator External Relationship Specialty Start Date End Date Michelle Shannon MD [address] [place] [phone] PCP - General 09/08/11 documented as of this encounter
--- OUTSIDE RECORDS SUMMARY | 2024-04-28 15:54 | XMS_ITS | Encounter Summary ---
Author Organization [facility] Address [address] [place] [address] Care Team Providers Care Consumer Advocate Name Role Phone Michelle Shannon MD Primary Care Provider + Reason for Visit * Reason Onset Date Comments Medications Refill 01/26/2021 Encounter Details Date Type Department Care Team (Late st Contact Info) Description 01/26/2021 Refill [facility] [address] [place] [phone] Michelle Shannon MD [address] [place] [phone] Medications Refill Social History Tobacco Use Types [...] BEDTIME. MAX: 1 MG 28 Tab 2 01/26/2021 02/25/2021 documented in this encounter Miscellaneous Notes * Telephone Encounter - Es Galan - 01/26/2021 1158 EDT Refill. documented in this encounter Plan of Treatment Upcoming Encounters Date Type Department Care Team (Late st Contact Info) Description 06/08/2024 13:30 EDT Office Visit [facility] [address] [place], [place] [phone] Michelle Shannon MD [address] [place] [phone] documented as of this encounter Visit Diagnoses Not on filedocumented in this encounter Discontinued Medications Medication Sig Discontinue Reason Start Date End Da te clonazePAM (KLONOPIN) 1 mg tablet TAKE 1 TABLET BY MOUTH DAILY AT BEDTIME. MAX: 1 MG Reorder 10/13/2020 01/26/2021 documented as of this encounter Care Teams Consumer Advocate Relationship Specialty Start Date End Date Michelle Shannon MD [address] [place] [phone] PCP - General 09/08/11 documented as of this encounter
--- OUTSIDE RECORDS SUMMARY | 2024-04-28 15:54 | XMS_ITS | Encounter Summary ---
Author Organization [facility] Address [address] [place] [address] Care Team Providers Care Product Development Assistant Name Role Phone Michelle Shannon MD Primary Care Provider + Reason for Visit * Reason Onset Date Comments Medications Refill 11/24/2020 Encounter Details Date Type Department Care Team (Late st Contact Info) Description 11/24/2020 Refill [facility] [address] [place] [address] Michelle Shannon MD [address] [place] [phone] Medications Refill Social History Tobacco Use [...] 8:45 EST documented as of this encounter Miscellaneous Notes * Telephone Encounter - Es Galan - 11/24/2020 1256 EST Refill. documented in this encounter Plan of Treatment Upcoming Encounters Date Type Department Care Team (Late st Contact Info) Description 06/08/2024 13:30 EDT Office Visit [facility] [address] [place], [place] [phone] Michelle Shannon MD [address] [place] [phone] documented as of this encounter Visit Diagnoses Not on filedocumented in this encounter Care Teams Product Development Assistant Relationship Specialty Start Date End Date Michelle Shannon MD [address] [place] [phone] PCP - General 09/08/11 documented as of this encounter
--- OUTSIDE RECORDS SUMMARY | 2024-04-28 15:54 | XMS_ITS | Encounter Summary ---
Author Organization [facility] Address [address] [place] [address] Care Team Providers Care Gravity Prospecting Observer Name Role Phone Michelle Shannon MD Primary Care Provider + Reason for Visit * Reason Onset Date Comments Medications Refill 05/07/2021 Encounter Details Date Type Department Care Team (Late st Contact Info) Description 05/07/2021 Refill [facility] [address] [place], [place] [phone] Curtis Casillas RN Medications Refill Social History [...] BEDTIME. MAX: 1 MG 28 Tablet 1 05/07/2021 08/19/2021 documented in this encounter Miscellaneous Notes * Telephone Encounter - Curtis Casillas, JOSEFINA - 05/07/2021 1617 EDT Refill request clonazepam 1mg po daily hs. Last ordered 02/25/21 28 tabs 1 refill CURTIS CASILLAS, RN documented in this encounter Plan of Treatment Upcoming Encounters Date Type Department Care Team (Late st Contact Info) Description 06/08/2024 13:30 EDT Office Visit [facility] [address] [place], [place] [phone] Michelle Shannon MD [address] [place] [phone] documented as of this encounter Visit Diagnoses Not on filedocumented in this encounter Discontinued Medications Medication Sig Discontinue Reason Start Date End Da te clonazePAM (KLONOPIN) 1 mg tablet TAKE 1 TABLET BY MOUTH DAILY AT BEDTIME. MAX: 1 MG Reorder 02/25/2021 05/07/2021 documented as of this encounter Care Teams Gravity Prospecting Observer Relationship Specialty Start Date End Date Michelle Shannon MD [address] [place] [phone] PCP - General 09/08/11 documented as of this encounter
--- OUTSIDE RECORDS SUMMARY | 2024-04-28 15:54 | XMS_ITS | Encounter Summary ---
Author Organization [facility] Address [address] [place] [address] Care Team Providers Care Finishing Pan Operator Name Role Phone Michelle Shannon MD Primary Care Provider + Reason for Visit * Reason Comments MEDICATION CHECK Encounter Details Date Type Department Care Team (Late st Contact Info) Description 02/06/2021 9:30 EDT Office Visit [facility] [address] [place] [address] [phone] Michelle Shannon MD [address] [place] [phone] Excoriation (skin-picking) disorder (Primary Dx); REM sleep behavior disorder; MDD (major depressive disorder), recurrent episode, moderate ([facility]); GERD without esophagitis Social History Tobacco Use Types Packs/Day Years [...] Sign Reading Time Taken Comments Blood Pressure 130/70 02/06/2021 0930 EDT Pulse 83 02/06/2021 0930 EDT Temperature 36.8 ??C (98.3 ??F) 02/06/2021929 EDT Respiratory Rate - - Oxygen Saturation 96% 02/06/2021929 EDT Inhaled Oxygen Concentration - - Weight 87.5 kg (193 lb) 02/06/2021929 EDT Height - - Body Mass Index 33.13 11/17/20202028 EST documented in this encounter Ordered Prescriptions Prescription Sig Dispensed Refills Start Date End Da fluticasone propionate (FLONASE) 50 mcg/actuation nasal spray SHAKE LIQUID AND USE 2 SPRAYS IN EACH NOSTRIL DAILY 3 Bottle 02/06/2021 topiramate (TOPAMAX) 50 mg tablet Take 1.5 Tabs by mouth 2 times daily. 270 Tab 1 02/06/2021 10/02/2021 naratriptan (AMERGE) 2.5 mg tabletIndications:migrain e Take as directed. 12 Tab 11 02/06/2021 05/14/2021 documented in this encounter Progress Notes * Michelle Shannon MD - 02/06/2021929 EDT Subjective: Patient ID: Jane Blair is an 45 y.o. female. Chief Complaint Patient presents with ??? MEDICATION CHECK HPI Jane is following up today for depression, anxiety, narcolepsy, and REM sleep disorder. She has been dealing with the burden of her brother's alcoholism, but he is finally being hooked upwith services. Denies any thoughts of self harm recently She had been going to [facility], [facility]asm[facility] at [facility]. Uses lorazepam prn which really helps. She continues to take clonazepam daily as well. She is not sure if her current Adderall generic is working as well as the previous brand. She is having more migraines. About once a week. If she doesn't take medication right away, she will vomit. She usually takes Advil, but has also Excedrin in the past. She was prescribed Amerge in the past but never took it. She already takes topamax 50mg bid. No period since July. Has f/u with FIELD MARKETING COORDINATOR today. Taking prilosec 20 mg twice a day and sx of GERD are still controlled. She has not tolerated a taper to 1 a day due to recurrentl sx. She is still trying to lose weight. She recently saw derm for picking behavior and was prescribed several new meds (oral and topical). Derm recommended NAC, but she has not started it yet due to concern of further GI distress. Patient Active Problem List Diagnosis ??? Narcolepsy [...] mouth at bedtime. 90 Tab 2 ??? cenodmy-zrorfkbwvlths-xajgsdxv (EXCEDRIN MIGRAINE) 250-250-65 mg per tablet Take [...] mouth daily with breakfast.100 Tab 0 ??? IBUPROFEN (ADVIL ORAL) Take by [...] mL by mouth 2 times daily. ??? tretinoin (RETIN-A) 0.025 % cream Apply [...] is nervous/anxious and has insomnia. Objective: BP 130/70 Pulse 83 Temp 36.8 ??C (98.3 ??F) Wt 87.5 kg (193 lb) SpO2 96% BMI 33.13 kg/m?? Physical Exam Constitutional: She appears well-developed and well-nourished. No distress. Cardiovascular: Normal rate, regular rhythm, Skin: Evidence of skin picking on the face Psychiatric: Her mood appears anxious. Her speech is normal. She is not agitated, not hyperactive and not withdrawn. She does not exhibit a depressed mood. Pt is mildly forgetful. Assessment: Plan: Jane was seen today for medication check. Diagnoses and all orders for this visit: Excoriation (skin-picking) disorder REM sleep behavior disorder MDD (major depressive disorder), recurrent episode, moderate ([facility]) GERD without esophagitis Other orders - naratriptan (AMERGE) 2.5 mg tablet; Take as directed. - topiramate (TOPAMAX) 50 mg tablet; Take 1.5 Tabs by mouth 2 times daily. - fluticasone propionate (FLONASE) 50 mcg/actuation nasal spray; SHAKE LIQUID AND USE 2 SPRAYS IN EACH NOSTRIL DAILY Major depressive disorder, with increased stressors due to the pandemic and brother's alcoholism. She also has narcolepsy and REM sleep disorder. Continue Adderall XR 30mg bid. Once again discussed designating a specific press puller or try brand only. She will call with update. (Mallinkrodt is not helping as well) Continue duloxetine 60mg Melatonin at hs Abilify 10mg a day Clonazepam 1 mg at bedtime Continue Lorazepam 1 mg p.o. daily as prn, discussed limiting use due to habituation She has the number for Crisis Plans to restart Alanon Continue with therapist at [facility] at [facility]- Erasmo Continue working with AIR QUALITY INSTRUMENT SPECIALIST Aixa Bonilla twice a week Obesity- weight is increasing Encouraged caution with diet Continue daily walks 15 minutes Already on Topamax but will increase dose today for migraines and this may help the weight Sclerosing lesion left breast MRI and Mammo yearly due in Oct S/p tubal ligation 06/2020- only one cycle since then, last 6 months ago F/u with FIELD MARKETING COORDINATOR today Consider FSH and TSH GERD and hoarseness- s/p tonsillectomy Aug 2019. Dx by ENT with LPR. She has rebound sx when tried to cut back Reviewed diet Encouraged working on weight loss once again Continue omeprazole 20mg bid and try to reduce to every day Excoriation disorder- She was prescribed N acetyl cystiene by derm, but has not started it yet due to concern over further GI distress. Encouraged to start Started metronidazole, Nizoral, betamethasone, and bactroban topically Migraines- increasing, maybe perimenopausal increase topamax to 75mg bid Refill amerge and was encouraged to take it She can also use Excedrin prn Check BMP at next visit Michelle Shannon MD documented in this encounter Plan of Treatment Upcoming Encounters Date Type Department Care Team (Late st Contact Info) Description 06/08/2024 13:30 EDT Office Visit [facility] [address] [place] [address] Michelle Shannon MD [address] [place] [phone] documented as of this encounter Visit Diagnoses Diagnosis Excoriation (skin-picking) disorder- Primary REM sleep behavior disorder MDD (major depressive disorder), recurrent episode, moderate ([facility]) Major depressive disorder, recurrent episode, moderate GERD without esophagitis Esophageal reflux documented in this encounter Discontinued Medications Medication Sig Discontinue Reason Start Date End Da te Azelaic Acid (FINACEA) 15 % gel Apply topically 2 times daily. 02/06/2021 naratriptan (AMERGE) 2.5 mg tabletIndications:migra ine Take as directed. Indications: MIGRAINE Reorder 03/24/2012 02/06/2021 topiramate (TOPAMAX) 50 mg tablet Take 1 Tab by mouth 2 times daily. Reorder 01/14/2021 02/06/2021 fluticasone propionate (FLONASE) 50 mcg/actuation nasal spray SHAKE LIQUID AND USE 2 SPRAYS IN EACH NOSTRIL DAILY Reorder 03/31/2020 02/06/2021 documented as of this encounter Care Teams Finishing Pan Operator Relationship Specialty Start Date End Date Michelle Shannon MD [address] [place] [phone] PCP - General 09/08/11 documented as of this encounter
--- OUTSIDE RECORDS SUMMARY | 2024-04-28 15:54 | XMS_ITS | Encounter Summary ---
Author Organization [facility] Address [address] [place] [address] Care Team Providers Care Court Manager Name Role Phone Michelle Shannno MD Primary Care Provider + Reason for Visit * Reason Onset Date Comments Results 11/19/2020 Encounter Details Date Type Department Care Team (Late st Contact Info) Description 11/19/2020 [facility] - [address] [phone] Vielka Madera Results Social History Tobacco Use Types Packs/Day [...] encounter Miscellaneous Notes * Telephone Encounter - Vielka Madera - 11/19/2020 0814 EST Called and left pt a message to call back for breast MR results documented in this encounter Plan of Treatment Upcoming Encounters Date Type Department Care Team (Late st Contact Info) Description 06/08/2024 13:30 EDT Office Visit [facility] [address] [place], [place] [phone] Michelle Shannon MD [address] [place] [phone] documented as of this encounter Visit Diagnoses Not on filedocumented in this encounter Care Teams Court Manager Relationship Specialty Start Date End Date Michelle Shannon MD [address] [place] [phone] PCP - General 09/08/11 documented as of this encounter
--- OUTSIDE RECORDS SUMMARY | 2024-04-28 15:54 | XMS_ITS | Encounter Summary ---
Author Organization [facility] Address [address] [place] [address] Care Team Providers Care Pharmaceutical Process Engineer Name Role Phone Michelle Shannon MD Primary Care Provider + Encounter Details Date Type Department Care Team (Late st Contact Info) Description 06/30/2020 Prep for [address] [facility] [address] [place], [place] [phone] Trish Flores MD [address] [place] [phone] Encounter for sterilization (Primary Dx) Social History Tobacco Use Types Packs/Day Years Used Date Smoking Tobacco: Never Smokeless Tobacco: Never Alcohol Use Standard Drinks/Week Comments No 0 (1 standard drink = 0.6 oz pur e alcohol) Interpersonal Safety Answer Date Record ed Physically [...] Info) Description 06/08/2024 13:30 EDT Office Visit [facility] [address] [place] [address] Michelle Shannon MD [address] [place] [phone] documented as of this encounter Visit Diagnoses Diagnosis Encounter for sterilization- Primary Sterilization documented in this encounter Orders Case Request Count Last Ordered Date First Orde red Date CASE REQUEST OPERATING ROOM 1 06/30/2020 documented in this encounter Care Teams Pharmaceutical Process Engineer Relationship Specialty Start Date End Date Michelle Shannon MD [address] [place] [phone] PCP - General 09/08/11 documented as of this encounter
--- OUTSIDE RECORDS SUMMARY | 2024-04-28 15:54 | XMS_ITS | Encounter Summary ---
Author Organization [facility] Address [address] [place] [address] Care Team Providers Care Local Government Legislator Name Role Phone Michelle Shannon MD Primary Care Provider + Reason for Visit * Reason Onset Date Comments Medications Refill 12/02/2020 Encounter Details Date Type Department Care Team (Late st Contact Info) Description 12/02/2020 Refill [facility] [address] [place] [phone] Michelle Shannon MD [address] [place] [phone] Medications Refill Social History Tobacco Use [...] daily. Daily Max: 2 Caps 56 Cap 12/02/2020 01/05/2021 documented in this encounter Miscellaneous Notes * Telephone Encounter - Es Galan - 12/02/2020 0931 EST Refill. documented in this encounter Plan of Treatment Upcoming Encounters Date Type Department Care Team (Late st Contact Info) Description 06/08/2024 13:30 EDT Office Visit [facility] [address] [place], [place] [phone] Michelle Shannon MD [address] [place] [phone] documented as of this encounter Visit Diagnoses Not on filedocumented in this encounter Discontinued Medications Medication Sig Discontinue Reason Start Date End Da te dextroamphetamine-ampheta mine (ADDERALL XR) 30 mg XR capsule Take 1 Cap by mouth 2 times daily. Daily Max: 2 Caps Reorder 10/29/2020 12/02/2020 documented as of this encounter Care Teams Local Government Legislator Relationship Specialty Start Date End Date Michelle Shannon MD [address] [place] [phone] PCP - General 09/08/11 documented as of this encounter
--- OUTSIDE RECORDS SUMMARY | 2024-04-28 15:54 | XMS_ITS | Encounter Summary ---
Author Organization [facility] Address [address] [place] [address] Care Team Providers Care Log Driver Name Role Phone Michelle Shannon MD Primary Care Provider + Encounter Details Date Type Department Care Team (Late st Contact Info) Description 07/18/2020 Orders Only [facility] [address] [place] [phone] Michelle Shannon MD [address] [place] [phone] Social History Tobacco Use Types Packs/Day Years [...] Daily Max: 2 Caps 56 Cap 07/18/2020 09/24/2020 documented in this encounter Plan of Treatment Upcoming Encounters Date Type Department Care Team (Late st Contact Info) Description 06/08/2024 13:30 EDT Office Visit [facility] [address] [place], [place] [phone] Michelle Shannon MD [address] [place] [phone] documented as of this encounter Visit Diagnoses Not on filedocumented in this encounter Discontinued Medications Medication Sig Discontinue Reason Start Date End Da te dextroamphetamine-ampheta mine (ADDERALL XR) 30 mg XR capsule Take 1 Cap by mouth 2 times daily. Daily Max: 2 Caps Reorder 07/18/2020 07/18/2020 documented as of this encounter Care Teams Log Driver Relationship Specialty Start Date End Date Michelle Shannon MD [address] [place] [phone] PCP - General 09/08/11 documented as of this encounter
--- OUTSIDE RECORDS SUMMARY | 2024-04-28 15:54 | XMS_ITS | Encounter Summary ---
Author Organization [facility] Address [address] [place] [address] Care Team Providers Care Electric Stove Mechanic Name Role Phone Michelle Shannon MD Primary Care Provider + Encounter Details Date Type Department Care Team (Latest Contact Info) Description 11/10/2020 Travel Social History Tobacco Use Types Packs/Day [...] 8:45 EST documented as of this encounter Plan of Treatment Upcoming Encounters Date Type Department Care Team (Late st Contact Info) Description 06/08/2024 13:30 EDT Office Visit [facility] [address] [place], [place] [phone] Michelle Shannon MD [address] [place] [phone] documented as of this encounter Visit Diagnoses Not on filedocumented in this encounter Care Teams Electric Stove Mechanic Relationship Specialty Start Date End Date Michelle Shannon MD [address] [place] [phone] PCP - General 09/08/11 documented as of this encounter
--- OUTSIDE RECORDS SUMMARY | 2024-04-28 15:54 | XMS_ITS | Encounter Summary ---
Author Organization [facility] Address [address] [place] [address] Care Team Providers Care Elevator Constructor Helper Name Role Phone Michelle Shannon MD Primary Care Provider + Reason for Visit * Reason Onset Date Comments Medications Refill 10/13/2020 Encounter Details Date Type Department Care Team (Late st Contact Info) Description 10/13/2020 Refill [facility] [address] [place] [phone] Michelle Shannon MD [address] [place] [phone] Medications Refill Social History Tobacco Use [...] BEDTIME. MAX: 1 MG 28 Tab 2 10/13/2020 01/26/2021 documented in this encounter Miscellaneous Notes * Telephone Encounter - Janna Tamayo LPN - 10/13/2020 1331 EST Refill request documented in this encounter Plan of Treatment Upcoming Encounters Date Type Department Care Team (Late st Contact Info) Description 06/08/2024 13:30 EDT Office Visit [facility] [address] [place], [place] [phone] Michelle Shannon MD [address] [place] [phone] documented as of this encounter Visit Diagnoses Not on filedocumented in this encounter Discontinued Medications Medication Sig Discontinue Reason Start Date End Da te clonazePAM (KLONOPIN) 1 mg tablet TAKE 1 TABLET BY MOUTH DAILY AT BEDTIME. MAX: 1 MG Reorder 05/30/2020 10/13/2020 documented as of this encounter Care Teams Elevator Constructor Helper Relationship Specialty Start Date End Date Michelle Shannon MD [address] [place] [phone] PCP - General 09/08/11 documented as of this encounter
--- OUTSIDE RECORDS SUMMARY | 2024-04-28 15:54 | XMS_ITS | Encounter Summary ---
Author Organization [facility] Address [address] [place] [address] Care Team Providers Care Solution Manager Name Role Phone Michelle Shannon MD Primary Care Provider + Reason for Visit * Reason Onset Date Comments Medications Refill 01/29/2021 Encounter Details Date Type Department Care Team (Late st Contact Info) Description 01/29/2021 Refill [facility] [address] [place] [phone] Michelle Shannon MD [address] [place] [phone] Medications Refill Social History Tobacco Use Types [...] daily. Daily Max: 2 mg 60 Tab 01/30/2021 04/17/2021 documented in this encounter Miscellaneous Notes * Telephone Encounter - Es Galan - 01/29/2021 1121 EDT Refill. documented in this encounter Plan of Treatment Upcoming Encounters Date Type Department Care Team (Late st Contact Info) Description 06/08/2024 13:30 EDT Office Visit [facility] [address] [place], [place] [phone] Michelle Shannon MD [address] [place] [phone] documented as of this encounter Visit Diagnoses Not on filedocumented in this encounter Discontinued Medications Medication Sig Discontinue Reason Start Date End Da te LORazepam (ATIVAN) 1 mg tablet Take 1 Tab by mouth 2 times daily. Daily Max: 2 mg Reorder 11/24/2020 01/29/2021 documented as of this encounter Care Teams Solution Manager Relationship Specialty Start Date End Date Michelle Shannon MD [address] [place] [phone] PCP - General 09/08/11 documented as of this encounter
--- OUTSIDE RECORDS SUMMARY | 2024-04-28 15:54 | XMS_ITS | Encounter Summary ---
Author Organization [facility] Address [address] [place] [address] Care Team Providers Care Cigarette Packing Machine Operator Name Role Phone Michelle Shannon MD Primary Care Provider + Reason for Visit * Reason Onset Date Comments Medication Management 11/21/2020 Encounter Details Date Type Department Care Team (Late st Contact Info) Description 11/21/2020 Telephone [facility] Dermatology [address] [phone] Randi Parker MD [address] [place] [address], [address] [place] [phone] Medication Management Social History Tobacco Use Types [...] Dispensed Refills Start Date End Da te tretinoin (RETIN-A) 0.025 % cream Apply topically to affected area at bedtime. Stat twice weekly, pea sized amount to the whole face. 45 g 6 11/21/2020 12/07/2023 documented in this encounter Miscellaneous Notes * Addendum Note - Randi Parker MD - 11/21/2020 0952 ESTAddended by: RANDI PARKER on: 11/21/2020 09:52 Modules accepted: Orders * Telephone Encounter - Randi Parker MD - 11/21/2020 0951 EST Will send tretinoin 0.025% Randi Parker MD 11/21/2020 9:51 * Telephone Encounter - Yahaira Yepez - 11/21/2020 0855 EST Pharmacy faxed request for drug change. Fax states that Adapalene 0.3% Gel 45GM is not covered by patient plan, but request switch to Trentinoin. Please advise pharmacy of decision to change/ not change. If would like to continue with Adapaline,PA would be needed. Drug Change Request fax placed in [place] mailbox documented in this encounter Plan of Treatment Upcoming Encounters Date Type Department Care Team (Late st Contact Info) Description 06/08/2024 13:30 EDT Office Visit [facility] [address] [place], [place] [phone] Michelle Shannon MD [address] [place] [phone] documented as of this encounter Visit Diagnoses Not on filedocumented in this encounter Care Teams Cigarette Packing Machine Operator Relationship Specialty Start Date End Date Michelle Shannon MD [address] [place] [phone] PCP - General 09/08/11 documented as of this encounter
--- OUTSIDE RECORDS SUMMARY | 2024-04-28 15:54 | XMS_ITS | Encounter Summary ---
Author Organization [facility] Address [address] [place] [address] Care Team Providers Care Outsole Flexer Name Role Phone Michelle Shannon MD Primary Care Provider + Encounter Details Date Type Department Care Team (Latest Contact Info) Description 07/01/2020 10:00 EDT Phlebotomy Only [facility] - [address] [place] [address] Encounter for preprocedure screening laboratory testing for COVID-19 (Primary Dx) Social History Tobacco Use Types [...] Info) Description 06/08/2024 13:30 EDT Office Visit [facility] [address] [facility] [address] [place] [address] Michelle Shannon MD [address] [place] [phone] documented as of this encounter Procedures Procedure Name Priority Date/Time Associated Diagnosis Comments DO NOT ORDER STANDALONE - BROAD COVID TEST Today 07/01/2020 9:59 EDT Encounter for preprocedure screening laboratory testing for COVID-19 COVID-19 TESTING Routine 07/01/2020 9:59 EDT Encounter for preprocedure screening laboratory testing for COVID-19 documented in this encounter Results * DO NOT ORDER STANDALONE - BROAD COVID TEST (07/01/2020 9:59 EDT) Pathologist [facility] COVID-19 rt-PCR Result NEGATIVE Negative 07/02/2020 18:45 EDT [facility] Comment: 2019-novel Coronavirus (2019-nCoV) not detected by the qRT-PCR assay. Consider testing for other respiratory viruses or re-collecting for 2019-nCoV testing. Note: Optimum timing for peak viral levels during infections caused by 2019-nCoV have not been determined. Collection of multiple specimens from the same patient may be necessary to detect the virus. Limitations Positive results are indicative of active infection with SARS-CoV-2 but do not rule out bacterial infection or co-infection with other viruses. The agent detected may not be the definite cause of disease. In addition, detection of viral RNA may not indicate the presence of infectious virus or that SARS-CoV-2 is the causative agent for clinical symptoms. Negative results do not preclude SARS-CoV-2 infection and should not be used as the sole basis for patient management decisions. Negative results must be combined with clinical observations, patient history, and epidemiological information. False negative results may also occur if amplification inhibitors are present in the specimen or if inadequate numbers of organisms are present in the specimen. Optimum specimen types and timing for peak viral levels during infections caused by SARS-CoV-2 have not been fully determined. Collection of multiple specimens (types and time points) from the same patient may be necessary to detect the virus. The test was validated for use with upper respiratory specimens obtained via nasopharyngeal or oropharyngeal swabs in VTM, UTM, M4, M5, M6, saline, and MTM media. The performance of this test has not been established for other specimens. Specimens collected using other FDA recommended Specimen Collection Materials listed in the FDA COVID-19 [employer] communication (December 20, 2019) are processed with the caveat that they were not all validated for use with this test and the result must be interpreted in this context. Furthermore, a false negative results may occur if a specimen is improperly collected, transported or handled. If the virus mutates in the RT-PCR target region, SARS-CoV-2 may not be detected or may be detected less predictably. Inhibitors or other types of interference may produce a false negative result. An interference study evaluating the effect of common cold medications was not performed. This test is not FDA-cleared but its performance characteristics were established by our CLIA-certified, CAP-accredited, high complexity laboratory in accordance with CLIA regulations, [employer] (CAP) guidelines (Dec 13, 2019), and FDA guidance (Nov 24, 2019). This test is only for use under the Food and Drug Administration's Emergency Use Authorization. Swab ENTIRE NASOPHARYNX / Unknown Swab / Unknown 07/01/2020 9:59 EDT 07/01/2020 9:59 EDT Kong Woo MD MICROBIOLOGY - GEN ERAL ORDERABLES [facility] [place] * COVID-19 TESTING (07/01/2020 9:59 EDT) COVID-19 rt-PCR Result NEGATIVE Negative 07/02/2020 20:32 EDT [facility] Comment: 2019-novel Coronavirus (2019-nCoV) not detected by the qRT-PCR assay. Consider testing for other respiratory viruses or re-collecting for 2019-nCoV testing. Note: Optimum timing for peak viral levels during infections caused by 2019-nCoV have not been determined. Collection of multiple specimens from the same patient may be necessary to detect the virus. Limitations Positive results are indicative of active infection with SARS-CoV-2 but do not rule out bacterial infection or co-infection with other viruses. The agent detected may not be the definite cause of disease. In addition, detection of viral RNA may not indicate the presence of infectious virus or that SARS-CoV-2 is the causative agent for clinical symptoms. Negative results do not preclude SARS-CoV-2 infection and should not be used as the sole basis for patient management decisions. Negative results must be combined with clinical observations, patient history, and epidemiological information. False negative results may also occur if amplification inhibitors are present in the specimen or if inadequate numbers of organisms are present in the specimen. Optimum specimen types and timing for peak viral levels during infections caused by SARS-CoV-2 have not been fully determined. Collection of multiple specimens (types and time points) from the same patient may be necessary to detect the virus. The test was validated for use with upper respiratory specimens obtained via nasopharyngeal or oropharyngeal swabs in VTM, UTM, M4, M5, M6, saline, and MTM media. The performance of this test has not been established for other specimens. Specimens collected using other FDA recommended Specimen Collection Materials listed in the FDA COVID-19 [employer] communication (December 20, 2019) are processed with the caveat that they were not all validated for use with this test and the result must be interpreted in this context. Furthermore, a false negative results may occur if a specimen is improperly collected, transported or handled. If the virus mutates in the RT-PCR target region, SARS-CoV-2 may not be detected or may be detected less predictably. Inhibitors or other types of interference may produce a false negative result. An interference study evaluating the effect of common cold medications was not performed. This test is not FDA-cleared but its performance characteristics were established by our CLIA-certified, CAP-accredited, high complexity laboratory in accordance with CLIA regulations, [employer] (CAP) guidelines (Dec 13, 2019), and FDA guidance (Nov 24, 2019). This test is only for use under the Food and Drug Administration's Emergency Use Authorization. Performing Lab [facility] [place] 07/02/2020 20:32 EDT [facility] Swab ENTIRE NASOPHARYNX / Unknown Swab / Unknown 07/01/2020 9:59 EDT 07/01/2020 9:59 EDT Kong Woo MD MICROBIOLOGY - GEN ERAL ORDERABLES [facility] [address] [place] [address] [facility] [place] documented in this encounter Visit Diagnoses Diagnosis Encounter for preprocedure screening laboratory testing for COVID-19- Primary documented in this encounter Care Teams Outsole Flexer Relationship Specialty Start Date End Date Michelle Shannon MD [address] [place] [phone] PCP - General 09/08/11 documented as of this encounter
--- OUTSIDE RECORDS SUMMARY | 2024-04-28 15:54 | XMS_ITS | Encounter Summary ---
Author Organization [facility] Address [address] [place] [address] Care Team Providers Care Welder First Class Name Role Phone Michelle Shannon MD Primary Care Provider + Reason for Visit * Reason Onset Date Comments Medications Refill 01/14/2021 Encounter Details Date Type Department Care Team (Late st Contact Info) Description 01/14/2021 Refill [facility] [address] [place] [phone] Michelle Shannon MD [address] [place] [phone] Medications Refill Social History Tobacco Use [...] te topiramate (TOPAMAX) 50 mg tablet Take 1 Tab by mouth 2 times daily. 180 Tab 1 01/14/2021 02/06/2021 documented in this encounter Miscellaneous Notes * Telephone Encounter - Es Galan - 01/14/2021 1501 EDT Refill. documented in this encounter Plan of Treatment Upcoming Encounters Date Type Department Care Team (Late st Contact Info) Description 06/08/2024 13:30 EDT Office Visit [facility] [address] [place], [place] [phone] Michelle Shannon MD [address] [place] [phone] documented as of this encounter Visit Diagnoses Not on filedocumented in this encounter Discontinued Medications Medication Sig Discontinue Reason Start Date End Da te topiramate (TOPAMAX) 50 mg tablet Take 1 Tab by mouth 2 times daily. Reorder 06/30/2020 01/14/2021 documented as of this encounter Care Teams Welder First Class Relationship Specialty Start Date End Date Michelle Shannon MD [address] [place] [phone] PCP - General 09/08/11 documented as of this encounter
--- OUTSIDE RECORDS SUMMARY | 2024-04-28 15:54 | XMS_ITS | Encounter Summary ---
Author Organization [facility] Address [address] [place] [address] Care Team Providers Care Coin Machine Service Repairer Name Role Phone Michelle Shannon MD Primary Care Provider + Reason for Visit * Reason Onset Date Comments Medications Refill 04/13/2021 Encounter Details Date Type Department Care Team (Late st Contact Info) Description 04/13/2021 Refill [facility] [address] [place] [phone] Michelle Shannon MD [address] [place] [phone] Medications Refill Social History Tobacco Use [...] daily. Daily Max: 2 Capsules 56 capsule 04/13/2021 05/26/2021 documented in this encounter Miscellaneous Notes * Telephone Encounter - Es Galan - 04/13/2021 1551 EDT Refill. Es Galan documented in this encounter Plan of Treatment Upcoming Encounters Date Type Department Care Team (Late st Contact Info) Description 06/08/2024 13:30 EDT Office Visit [facility] [address] [place], [place] [phone] Michelle Shannon MD [address] [place] [phone] documented as of this encounter Visit Diagnoses Not on filedocumented in this encounter Discontinued Medications Medication Sig Discontinue Reason Start Date End Da te dextroamphetamine-amphe tamine (ADDERALL XR) 30 mg XR capsule Take 1 capsule by mouth 2 times daily. Daily Max: 2 Capsules Reorder 03/11/2021 04/13/2021 documented as of this encounter Care Teams Coin Machine Service Repairer Relationship Specialty Start Date End Date Michelle Shannon MD [address] [place] [phone] PCP - General 09/08/11 documented as of this encounter
--- OUTSIDE RECORDS SUMMARY | 2024-04-28 15:54 | XMS_ITS | Encounter Summary ---
Author Organization [facility] Address [address] [place] [address] Care Team Providers Care Marine Equipment Research Engineer Name Role Phone Michelle Shannon MD Primary Care Provider + Reason for Visit * Reason Onset Date Comments Medications Refill 02/03/2021 Encounter Details Date Type Department Care Team (Late st Contact Info) Description 02/03/2021 Refill [facility] [address] [place] [phone] Michelle Shannon MD [address] [place] [phone] Medications Refill Social History Tobacco Use Types [...] daily. Daily Max: 2 Caps 56 Cap 02/03/2021 03/11/2021 documented in this encounter Miscellaneous Notes * Telephone Encounter - Es Galan - 02/03/2021 9873 EDT Refill. documented in this encounter Plan of Treatment Upcoming Encounters Date Type Department Care Team (Late st Contact Info) Description 06/08/2024 13:30 EDT Office Visit [facility] [address] [place], [place] [phone] Michelle Shannon MD [address] [place] [phone] documented as of this encounter Visit Diagnoses Not on filedocumented in this encounter Discontinued Medications Medication Sig Discontinue Reason Start Date End Da te dextroamphetamine-ampheta mine (ADDERALL XR) 30 mg XR capsule Take 1 Cap by mouth 2 times daily. Daily Max: 2 Caps Reorder 01/05/2021 02/03/2021 documented as of this encounter Care Teams Marine Equipment Research Engineer Relationship Specialty Start Date End Date Michelle Shannon MD [address] [place] [phone] PCP - General 09/08/11 documented as of this encounter
--- OUTSIDE RECORDS SUMMARY | 2024-04-28 15:54 | XMS_ITS | Encounter Summary ---
Author Organization [facility] Address [address] [place] [address] Care Team Providers Care Bad Credit Collector Name Role Phone Michelle Shannon MD Primary Care Provider + Reason for Visit * Reason Onset Date Comments Medications Refill 10/29/2020 Encounter Details Date Type Department Care Team (Late st Contact Info) Description 10/29/2020 Refill [facility] [address] [place] [phone] Michelle Shannon MD [address] [place] [phone] Medications Refill Social History Tobacco Use [...] by mouth at bedtime. 90 Tab 2 10/29/2020 06/08/2021 dextroamphetamine-amphetam ine (ADDERALL XR) 30 mg XR capsule Take 1 Cap by mouth 2 times daily. Daily Max: 2 Caps 56 Cap 10/29/2020 12/02/2020 documented in this encounter Miscellaneous Notes * Telephone Encounter - Mandi Leon - 10/29/2020 1157 EST refills documented in this encounter Plan of Treatment Upcoming Encounters Date Type Department Care Team (Late st Contact Info) Description 06/08/2024 13:30 EDT Office Visit [facility] [address] [place], [place] [phone] Michelle Shannon MD [address] [place] [phone] documented as of this encounter Visit Diagnoses Not on filedocumented in this encounter Discontinued Medications Medication Sig Discontinue Reason Start Date End Da te dextroamphetamine-ampheta mine (ADDERALL XR) 30 mg XR capsule Take 1 Cap by mouth 2 times daily. Daily Max: 2 Caps Reorder 09/24/2020 10/29/2020 ARIPiprazole (ABILIFY) 10 mg tablet Take 1 Tab by mouth at bedtime. Reorder 12/24/2019 10/29/2020 documented as of this encounter Care Teams Bad Credit Collector Relationship Specialty Start Date End Date Michelle Shannon MD [address] [place] [phone] PCP - General 09/08/11 documented as of this encounter
--- OUTSIDE RECORDS SUMMARY | 2024-04-28 15:54 | XMS_ITS | Encounter Summary ---
Author Organization [facility] Address [address] [place] [address] Care Team Providers Care Visual Merchandising Manager Name Role Phone Michelle Shannon MD Primary Care Provider + Reason for Visit * Reason Comments New Patient Visit Skin lesion on face, FBSE Room 9 * Consult (Routine) - Order Cancelled Specialty Diagnoses / Procedures Referred By Thelma long Referred To Contact Dermatology Diagnoses Excoriation (skin-picking) disorder Michelle Shannon MD [address] [place] [phone] [facility] [address] [place] [phone] Referral ID Status Reason Start Date Expiration Date Visits Requested Visits Authorized [id number] Order Cancelled Specialty Services Required 09/30/2020 1 1 Encounter Details Date Type Department Care Team (Late st Contact Info) Description 11/19/2020 14:40 EST Office Visit [facility] Dermatology 5th Floor [address] [phone] Divya Coombs MD [address] [place] [address], [address] [place] [phone] Skin picking habit (Primary Dx); Acne vulgaris; Onychodystrophy; Seborrheic dermatitis; Hyperkeratosis Social History Tobacco Use Types Packs/Day Years [...] 8:45 EST documented as of this encounter Patient Instructions * Patient Instructions* Divya Coombs MD - 11/19/2020 14:40 EST Start NAC 600mg twice daily for 2 weeks then increase to 1200mg twice daily until follow up. Most common side effect is nausea but this is not common For the scalp: -Start betamethasone 0.05% lotion up to twice daily as needed for itch For the face: Mupirocin to the open areas twice daily for 5 days then stop. But can use if there are any further open areas Then once healed start adapalene, pea sized amount to the whole face start 3 times per week then increase as tolerated For scalp and face: -Start ketoconazole 2% shampoo, apply to the scalp and face leave on for 3-5 minutes then wash off in t the shower Gold rough and bumpy for the elbows twice daily documented in this encounter Ordered Prescriptions Prescription Sig Dispensed Refills Start Date End Da te betamethasone dipropionate 0.05 % lotion Apply topically 2 times daily. Twice daily as needed for itch. Do not let it drip onto the face 60 mL 3 11/19/2020 ketoconazole (NIZORAL) 2 % shampoo Apply topically to affected area daily. Scalp and face. leave on 3-5 minutes then rinse off 1 Bottle 11 11/19/2020 09/03/2022 mupirocin (BACTROBAN) 2 % ointment Apply topically to affected area 2 times daily. For 5 days 22 g 3 11/19/2020 10/19/2023 acetylcysteine 600 mg capsule 600mg twice daily for 2 weeks then increase to 1200mg twice daily 120 Cap 3 11/19/2020 09/03/2022 adapalene 0.3 % gel Apply a pea sized amount to the whole face 3 times per week. THen increase to nightly as tolerated 45 g 3 11/19/2020 09/03/2022 documented in this encounter Progress Notes * Wolf Delvalle MA - 11/19/2020 1440 EST Review of Systems Constitutional: Negative for fatigue, fever and unexpected weight change. HENT: Negative for mouth sores. Eyes: Negative for pain. Respiratory: Negative for cough and shortness of breath. Cardiovascular: Negative for chest pain and palpitations. Gastrointestinal: Negative for abdominal pain, blood in stool, constipation, diarrhea, nausea and vomiting. Genitourinary: Negative for dysuria, frequency and hematuria. Musculoskeletal: Negative for myalgias, joint swelling, arthralgias and muscle stiffness in the morning. Skin: Negative for rash. Neurological: Negative for numbness and headaches. Endo/Heme/Allergies: Does not bruise/bleed easily. Psychiatric/Behavioral: Negative for sleep disturbance. The patient is not nervous/anxious. WOLF DELVALLE MA 11/19/2020 14:49 * Divya Coombs MD - 11/19/2020 1440 EST Dermatology Outpatient Visit Note Chief Complaint Patient presents with ??? New Patient Visit Skin lesion on face, FBSE Room 9 Dermatologic History: No specialty comments available. Last Dermatology office visit: 04/2008 SUBJECTIVE Ms. Blair is a 45 y.o. female who presents for new evaluation and treatment for the complaint listed above. Picks at her face and scalp. She thinks it's a pimple that appears first. She admits that she picks. Tried head and shoulders, tried tea tree shampoo. She was told it was too hot showers. Showers onceevery 5 days. Also states she leans more on her right elbow and it is thickened. For full Medical, Surgical, Family, and Social histories, please see the History section of this encounter in the electronic chart which I have personally reviewed. For Review of Systems, Medications and Allergies, please see those sections of this encounter in the electronic chart which I have also reviewed. She has a current medication list which includes the following prescription(s): albuterol, aripiprazole, elrhhzz-gubklajlhltwq-ibeaszys, azelaic acid, cholecalciferol (vitamin d3), clonazepam, dextroamphetamine-amphetamine, duloxetine, ferrous gluconate, fluticasone propionate, ibuprofen, loratadine, lorazepam, melatonin, metronidazole, naratriptan, omeprazole, and topiramate. She has No Known Allergies. OBJECTIVE VS: There were no vitals taken for this visit. Ms. Blair is in no acute distress female sitting on the examination table with a normal affect. She is alert and oriented to person, place and time. She has Leiva type II skin. Cutaneous full body examination including the hair, scalp, face, eyelids, lips, neck, chest, back, abdomen, all four extremities, hands, feet, digits and nails was performed.The examination was normal with the addition of the following comments: -Three discrete geometric lesions on the face (right forehead and bilateral chin) -Scattered on the scalp there are excoriated pink papules with some scale -Hyperkeratosis of the right elbow -Right great toe thickened ASSESSMENT/PLAN Skin picking habit, acne and seborrheic dermatitis -Start NAC 600mg twice daily for 2 weeks then increase to 1200mg twice daily until follow up. Most common side effect is nausea but this is not common For the scalp: -Start betamethasone 0.05% lotion up to twice daily as needed for itch For the face: Mupirocin to the open areas twice daily for 5 days then stop. 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 She will f/u as planned or in the interim should problems arise. Divya Coombs MD 11/19/2020 15:02 documented in this encounter Plan of Treatment Upcoming Encounters Date Type Department Care Team (Late st Contact Info) Description 06/08/2024 13:30 EDT Office Visit [facility] [address] [place], [place] [phone] Michelle Shannon MD [address] [place] [phone] documented as of this encounter Visit Diagnoses Diagnosis Skin picking habit- Primary Other and unspecified special symptom or syndrome, not elsewhere classified Acne vulgaris Other acne Onychodystrophy Other specified disease of nail Seborrheic dermatitis Seborrheic dermatitis, unspecified Hyperkeratosis Acquired keratoderma documented in this encounter Care Teams Visual Merchandising Manager Relationship Specialty Start Date End Date Michelle Shannon MD [address] [place] [phone] PCP - General 09/08/11 documented as of this encounter
--- OUTSIDE RECORDS SUMMARY | 2024-04-28 15:54 | XMS_ITS | Encounter Summary ---
Author Organization [facility] Address [address] [place] [address] Care Team Providers Care Tapper Supervisor Name Role Phone Michelle Shannon MD Primary Care Provider + Encounter Details Date Type Department Care Team (Late st Contact Info) Description 07/08/2020 9:40 EDT Anesthesia Event [facility] OR [address] [place], [place] [phone] Milla Owusu MD [address] [facility], Level 2 [place] [phone] Anesthesia Record Procedure Summary Procedure Name Responsible Anesthesiologist Anesthesia Start Time Anesthesia Stop Time Laparoscopic bilateral salpingectomy, nexplanon removal (Bilateral: Abdomen) Milla Owusu MD 07/08/20 0940 07/08/20 1135 Events Date Time Event Comment 07/08/2020 0940 An Start The patient was re-evaluated immediately before moderate or deep sedation use, before anesthesia induction, or before the anesthesia procedure. 0940 An Start Data 0951 An Induction The patient was reevaluated immediately before moderate or deep sedation use and before anesthesia induction. 0955 An Intubation 1004 Anesthesia Ready 1126 An Extubation 1127 Hoang OP suctioned, e xtubated w/o diff 1131 an stop data 1135 Handoff to RN I completed my handoff to the receiving nurse during which we: 1. Identified the patient 2. Identified the responsible provider 3. Reviewed the pertinent medical history 4. Discussed the surgical course 5. Reviewed intra-op anesthesia management and issues during anesthesia 6. Set expectations for post-procedure period 7. Allowed opportunity for questions and acknowledgement of understanding. 1135 An Stop Meds Name Total ePHEDrine pre-filled syringe 10 mg fentanyl citrate (PF) injection 50 mcg glycopyrrolate pre-filled syringe 0.2 mg lidocaine 2% (PF) injection glass vial 7 0 mg midazolam 1 mg/mL 2 mL vial 2 mg phenylephrine pre-filled syringe 100 mcg propOFol (DIPRIVAN) injection 150 mg rocuronium 10 mg/mL vial 70 mg ketOROLAC injection 30 mg lactated ringers (LR) infusion 1,000 mL * Agents Name Insp Sevoflurane Exp Sevoflurane O2 N2O Air * Blood No blood administrations on file. Lines, Drains, and Airways Type Details Placement Removal Peripheral IV 07/08/20; 710; 20; 1.25; Other (Comment); Posterior, Right, Dorsal; Hand; Inserted by RN; 2; None; 3.15% Chlorhexidine with IPA 07/08/20 0711 by Conchis Jordan RN Wound 07/08/20; 1031; Inci maria e; Anterior; Abdomen; 3 trocar sites for salpingectomy; N 07/08/20 1031 by Britta Greene RN Wound 07/08/20; 1113; Inci maria e; Left, Upper, Inner; Arm; nexplanon removal; N 07/08/20 1113 by Britta Greene RN Non-Surgical Airway 07/08/20; 1004 (felicity purcell via procedure documentation); 07/08/20; 1126 07/08/20 1004 by Gabriel Malik AA 07/08/20 1126 by Gabriel Malik AA Urethral Catheter 07/08/20; 1017; In O R by ; Intraoperative monitoring, Selected surgical procedures/Epidural; Latex, Straight-tip; 16 fr; 10 ml; Yes; 07/08/20; 1113 07/08/20 1017 by Britta Greene RN 07/08/20 1113 by Britta Greene RN documented in this encounter Social History Tobacco [...] :06 EDT documented as of this encounter OR Notes * Anesthesia Postprocedure Evaluation - Milla Owusu MD - 07/08/2020 1135 EDT Patient: Jane Blair Vital signs were reviewed with the recovery nurse. Complete vitals history is available in the Epicflowsheets. Vitals Value Taken Time BP 85/45 07/08/20 1135 Temp 36.2 07/08/20 1135 Resp 16 07/08/20 1135 Pulse From Oximetry 79 BPM 07/08/20 1135 SpO2 100 % 07/08/20 1135 Vitals shown include unvalidated device data. Last Pain Score - Numeric Pain Level (Scale 1-10): 0 Type of Anesthesia - general Anesthesia Post Evaluation Level of consciousness: responsive/arousable to verbal stimuli Temperature status: normothermia Respiratory status: airway patent and nasal cannula Cardiovascular status: acceptable Hydration status: adequate Nausea/Vomiting: none Pain management: adequate Post-Op Assessment: patient tolerated procedure well with no complications Patient participation: able to participate Disposition: outpatient/home Anesthesia Complications: No apparent anesthesia complications * Anesthesia Procedure Notes - Gabriel Malik AA - 07/08/2020 1003 EDTAssociated Order(s): Airway Airway Date/Time: 07/08/2020 9:55 Urgency: elective General Information and Staff Patient location during procedure: OR Resident/SENIOR COURTROOM CLERK: Gabriel Malik AA Performed: resident/SENIOR COURTROOM CLERK/JOANNE Indications and Patient Condition Indications for airway management: anesthesia Sedation level: GA Preoxygenated: yes Patient position: sniffing Ventilation assessment: 1 - Easy Final Airway Details Final airway type: endotracheal airway Successful airway: ETT Cuffed: yes Successful intubation technique: video laryngoscopy Tionesta Facilitating devices/methods: intubating stylet Endotracheal tube insertion site: oral Blade: Tucker Blade size: #3 ETT size (mm): 7.0 Cormack-Lehane Classification: grade I - full view of glottis Placement verified by: capnometry Measured from: lips ETT to lips (cm): 21 Number of attempts at approach: 1 * Anesthesia Preprocedure Evaluation - Milla Owusu MD - 07/08/2020 0759 EDT Anesthesia Preprocedure Evaluation Patient Medical History, including Anesthesia History reviewed. Chart and Nursing Notes reviewed, including NPO status and Medication History. Additional ROS/History Findings: No Known Allergies Review of Systems No recent change in medical condition. NPO confirmed, 20g PIV right hand-LR, Took Abilify, Cymbalta, and Omeprazole this AM. Past Medical History: Diagnosis Date ??? Allergic [...] infarction ??? Vasovagal syncope last episode 04/2020 Relevant Problems Anesthesia (within normal limits) PULMONARY (within normal limits) Neuro/Psych (within normal limits) CARDIOVASCULAR (+) Migraine with aura GASTROINTESTINAL (+) GERD without esophagitis /Renal (within normal limits) ENDO/GI (within normal limits) Physical Exam Airway Mallampati: IV TM distance: <3 FB Neck ROM: full Cardiovascular - normal exam Rhythm: regular Rate: normal Dental - normal exam Pulmonary - normal exam Breath sounds clear to auscultation Abdominal Anesthesia Plan ASA 3 Anesthesia Type - general, to include intravenous induction. Block for post-op pain? No Anesthesia plan and risks discussed. Informed consent obtained from patient. Specific risks discussed were nausea and vomiting (Sore throat). Code status discussed? No The preoperative history and physical which was performed within 30 days of this procedure, has been reviewed and the clinically appropriate elements of the physical examination have been repeated. There are no changes to the documented history and physical or, if so, such changes are documented inthis note PAT Note (Notes from 06/08/20 through 07/08/20) No notes of this type exist for this encounter. documented in this encounter Plan of Treatment Upcoming Encounters Date Type Department Care Team (Late st Contact Info) Description 06/08/2024 13:30 EDT Office Visit [facility] [address] [place] [address] Michelle Shannon MD [address] [place] [phone] documented as of this encounter Procedures Procedure Name Priority Date/Time Associated Diagnosis Comments ANESTHESIA INTUBATION Routine 07/08/2020 10:03 EDT documented in this encounter Results * FL AN ELECTIVE ENDOTRACHEAL AIRWAY (07/08/2020 10:03 EDT) Narrative Gabriel Malik AA - 07/08/2020 10:03 EDT Gabriel Malik AA ? 07/08/2020 10:04 Airway Date/Time: 07/08/2020 9:55 Urgency: elective General Information and Staff Patient location during procedure: OR Resident/SENIOR COURTROOM CLERK: Gabriel Malik AA Performed: resident/SENIOR COURTROOM CLERK/JOANNE Indications and Patient Condition Indications for airway management: anesthesia Sedation level: GA Preoxygenated: yes Patient position: sniffing Ventilation assessment: 1 - Easy Final Airway Details Final airway type: endotracheal airway Successful airway: ETT Cuffed: yes Successful intubation technique: video laryngoscopy Tionesta Facilitating devices/methods: intubating stylet Endotracheal tube insertion site: oral Blade: Tucker Blade size: #3 ETT size (mm): 7.0 Cormack-Lehane Classification: grade I - full view of glottis Placement verified by: capnometry Measured from: lips ETT to lips (cm): 21 Number of attempts at approach: 1 Milla Owusu MD ANESTHESIA OR DERABLES documented in this encounter Visit Diagnoses Not on filedocumented in this encounter Administered Medications Inactive Administered Medications - up to 3 most recent administrations Medication Order MAR Action Action Date Dose Rate Site ePHEDrine injection 25 mg/5 mL syringe PRN, Starting on Tue07/08/20 at 1020, Until Tue07/08/20 at 1135, Routine, Anesthesia Intraprocedure Given 07/08/2020 10:20 EDT 10 mg fentaNYL citrate (PF) injection PRN, Starting on Tue07/08/20 at 0945, Until Tue07/08/20 at 1135, Routine, Anesthesia Intraprocedure Given 07/08/2020 9:45 EDT 50 mcg glycopyrrolate (PF) (ROBINUL) 0.4 mg/2 mL (0.2 mg/mL) injection PRN, Starting on Tue07/08/20 at 1020, Until Tue07/08/20 at 1135, Routine, Anesthesia Intraprocedure Given 07/08/2020 10:20 EDT 0.2 mg ketOROLAC (TORADOL) injection PRN, Starting on Tue07/08/20 at 1112, Until Tue07/08/20 at 1135, Routine, Anesthesia Intraprocedure Given 07/08/2020 11:12 EDT 30 mg lactated ringers (LR) infusion at 25 mL/hr, intravenous, CONTINUOUS, Starting on Tue07/08/20 at 0700, Until Tue07/08/20 at 1523, Routine, Preprocedure New Bag 07/08/2020 10:20 EDT Continued by Anesthesia 07/08/2020 9:40 EDT New Bag 07/08/2020 7:39 EDT 25 mL/hr lidocaine (PF) 20 mg/mL (2 %) injection PRN, Starting on Tue07/08/20 at 0952, Until Tue07/08/20 at 1135, Routine, Anesthesia Intraprocedure Given 07/08/2020 9:52 EDT 70 mg midazolam (PF) (VERSED) injection PRN, Starting on Tue07/08/20 at 0945, Until Tue07/08/20 at 1135, Routine, Anesthesia Intraprocedure Given 07/08/2020 9:45 EDT 2 mg phenylephrine HCl in 0.9% NaCl injection PRN, Starting on Tue07/08/20 at 1021, Until Tue07/08/20 at 1135, Routine, Anesthesia Intraprocedure Given 07/08/2020 10:21 EDT 100 mcg propOFol (DIPRIVAN) injection PRN, Starting on Tue07/08/20 at 0952, Until Tue07/08/20 at 1135, Routine, Anesthesia Intraprocedure Given 07/08/2020 9:52 EDT 150 mg rocuronium (ZEMURON) injection PRN, Starting on Tue07/08/20 at 0952, Until Tue07/08/20 at 1135, Routine, Anesthesia Intraprocedure Given 07/08/2020 10:27 EDT 20 mg Given 07/08/2020 9:52 EDT 50 mg documented in this encounter Care Teams Tapper Supervisor Relationship Specialty Start Date End Date Michelle Shannon MD [address] [place] [phone] PCP - General 09/08/11 documented as of this encounter
--- OUTSIDE RECORDS SUMMARY | 2024-04-28 15:54 | XMS_ITS | Encounter Summary ---
Author Organization [facility] Address [address] [place] [address] Care Team Providers Care Social Work Msw Name Role Phone Michelle Shannon MD Primary Care Provider + Encounter Details Date Type Department Care Team (Late st Contact Info) Description 07/08/2020 6:16 EDT - 07/08/2020 13:15 EDT Hospital Encounter [facility] OR [address] [place], [place] [phone] Kong Michele MD [address] [place] [address], [facility], [address] [place] [phone] Discharge Disposition: Home or Self Care Social [...] Sign Reading Time Taken Comments Blood Pressure 110/62 07/08/2020 1245 EDT Pulse - - Temperature 36.2 ??C (97.2 ??F) 07/08/2020 1134 EDT Respiratory Rate 13 07/08/2020 1245 EDT Oxygen Saturation 98% 07/08/2020 1245 EDT Inhaled Oxygen Concentration - - Weight 87 kg (191 lb 12.8 oz) 07/08/2020 0648 ED T Height 162.6 cm (5' 4) 07/08/2020 0648 EDT Body Mass Index 32.92 07/08/2020 0648 EDT documented in this encounter Discharge Instructions [...] Means Destination Comment s Home or Self Longterm home with mom documented in this encounter H&P Notes * Kong Michele MD - 07/08/2020 8467 EDT The preoperative history and physical which [...] PreOp - Conchis Jordan RN - 07/08/2020 9230 EDT Preop Covid DOS screening questionnaire Please [...] Nexplanon. ANESTHESIA: General. SURGEON: Kong Michele MD SEED YEAST OPERATOR: INDICATIONS: The patient is a 45-year-old woman [...] drains retained. Kong Michele MD / Confirmation: [id number] Dictation ID: [id number] cc: * Preprocedure Instructions - Chely Mcleod [...] instruct them to call us back at [phone] to report symptoms (If patient is in [...] Tab by mouth at bedtime. Takes hs noopczx-uduhrvecnmpty-lqxhyyou (EXCEDRIN MIGRAINE) 250-250-65 mg per tablet Take [...] Info) Description 06/08/2024 13:30 EDT Office Visit [facility] [address] [facility] [address] [place], [place] [phone] Michelle Shannon MD [address] [place] [phone] documented as of this encounter [...] fimbriated ends and complete cross-sections 07/11/2020 9:34 EDT [facility] Attestation There was significant resident/fellow involvement in the diagnostic evaluation of this case. By the signature below, the attending physician certifies that they have personally conducted a gross and/or microscopic examination of the described specimens and rendered or confirmed the above diagnosis. 07/11/2020 9:34 EDT [facility] at 0934 Clinical History Encounter for sterilization 07/11/2020 9:34 EDT [facility] Gross Description A. Received a normal saline labelled with proper patient identification (initials with W,T) and bilateral fallopian tubes are two fimbriated fallopian tubes (4.2 cm in length x 1.4 cm in diameter and 3.6 cm in length by 1.2 cm in diameter). The serosa is sanabria-purple and smooth. Sectioning reveals a sanabria cut surface with a pinpoint lumen throughout. Carpenter'S Assistant sections of the specimen are submitted as follows: BLOCK SANDOVAL: A1-A2- entire longitudinally bisected fimbriated end and 2 cross-sections of longest fallopian tube. A3-A4- entire longitudinally bisected fimbriated end and 2 cross-sections of shortest fallopian tube. WADE STUART DO 07/09/2020 9:42 07/11/2020 9:34 EDT [facility] Resident/Topher w: Wade Stuart DO Mattaino, Rosemary, DO 07/11/2020 9:34 EDT [facility] Performing Lab [facility] 07/11/2020 9:34 EDT [facility] Scanned Images 07/11/2020 9:34 T [facility] Tissue BOTH FALLOPIAN TUBES / Unknown 07/08/2020 10:42 EDT 07/08/2020 18:03 EDT Kong Michele MD PATHOLOGY ORDERABL ES [facility] [address] [place] [address] * TEST, URINE (07/08/2020 7:37 EDT) Test, Urine Negative Negative 07/08/2020 7:46 EDT [facility] Comment:False negative resul ts may occur in women who are beyond 5-8 weeks gestation. Diagnosis of should be based on a correlation of test results with typical clinical signs and symptoms. Urine URINE SPECIMEN COLLECTION, CLEAN CATCH / Unknown Urine Collect / Unknown 07/08/2020 7:37 EDT 07/08/2020 7:39 EDT Kong Michele MD URINALYSIS ORDERAB LES [facility] [address] [place] [address] documented in this encounter Visit Diagnoses Diagnosis Encounter for sterilization- Primary Sterilization documented in this encounter Admitting Diagnoses [...] Symptomatic HR < 50, Routine, Recovery (only) diphenhydrAMINE (BENADRYL) injection 12.5 mg 12.5 mg, [...] at 1523, Nausea, Vomiting, Routine, Recovery (only) documented in this encounter Active and Recently [...] 0.1 mg/mL syringe 0.5 mg 1 020 bupivacaine (PF) (MARCAINE) 0.25 % (2.5 mg/mL) injection 1 07/08/2020 diphenhydrAMINE (BENADRYL) i njection 12.5 mg 1 [...] (PF) (ZOFRAN) injection 4 mg 1 07/08/2020 sodium chloride 0.9 % irrigation 1 07/08/20 20 documented in this encounter Care Teams Social Work Msw Relationship Specialty Start Date End Date Michelle Shannon MD [address] [place] [phone] PCP - General 09/08/11 documented as of this encounter
--- OUTSIDE RECORDS SUMMARY | 2024-04-28 15:54 | XMS_ITS | Encounter Summary ---
Author Organization [facility] Address [address] [place] [address] Care Team Providers Care Hand Candy Dipper Name Role Phone Michelle Shannon MD Primary Care Provider + Reason for Visit * Reason Onset Date Comments Medications Refill 09/12/2020 Encounter Details Date Type Department Care Team (Late st Contact Info) Description 09/12/2020 Refill [facility] [address] [place] [phone] Michelle Shannon MD [address] [place] [phone] Medications Refill Social History Tobacco Use [...] Cap by mouth daily. 90 Cap 1 09/12/2020 12/26/2020 documented in this encounter Miscellaneous Notes * Telephone Encounter - Janna Tamayo LPN - 09/12/2020 1446 EST Refill request documented in this encounter Plan of Treatment Upcoming Encounters Date Type Department Care Team (Late st Contact Info) Description 06/08/2024 13:30 EDT Office Visit [facility] [address] [place], [place] [phone] Michelle Shannon MD [address] [place] [phone] documented as of this encounter Visit Diagnoses Not on filedocumented in this encounter Discontinued Medications Medication Sig Discontinue Reason Start Date End Da te DULoxetine (CYMBALTA) 60 mg capsule Take 1 Cap by mouth daily. Reorder 02/07/2020 09/12/2020 documented as of this encounter Care Teams Hand Candy Dipper Relationship Specialty Start Date End Date Michelle Shannon MD [address] [place] [phone] PCP - General 09/08/11 documented as of this encounter
--- OUTSIDE RECORDS SUMMARY | 2024-04-28 15:54 | XMS_ITS | Encounter Summary ---
Author Organization [facility] Address [address] [place] [address] Care Team Providers Care Service Supervisor Name Role Phone Michelle Shannon MD Primary Care Provider + Reason for Visit * Reason Onset Date Comments Medications Refill 01/05/2021 Encounter Details Date Type Department Care Team (Late st Contact Info) Description 01/05/2021 Refill [facility] [address] [place] [phone] Michelle Shannon MD [address] [place] [phone] Medications Refill Social History Tobacco Use Types [...] daily. Daily Max: 2 Caps 56 Cap 01/05/2021 02/03/2021 documented in this encounter Miscellaneous Notes * Telephone Encounter - Es Galan - 01/05/2021 1350 EDT Refill. documented in this encounter Plan of Treatment Upcoming Encounters Date Type Department Care Team (Late st Contact Info) Description 06/08/2024 13:30 EDT Office Visit [facility] [address] [place], [place] [phone] Michelle Shannon MD [address] [place] [phone] documented as of this encounter Visit Diagnoses Not on filedocumented in this encounter Discontinued Medications Medication Sig Discontinue Reason Start Date End Da te dextroamphetamine-ampheta mine (ADDERALL XR) 30 mg XR capsule Take 1 Cap by mouth 2 times daily. Daily Max: 2 Caps Reorder 12/02/2020 01/05/2021 documented as of this encounter Care Teams Service Supervisor Relationship Specialty Start Date End Date Michelle Shannon MD [address] [place] [phone] PCP - General 09/08/11 documented as of this encounter
--- OUTSIDE RECORDS SUMMARY | 2024-04-28 15:54 | XMS_ITS | Encounter Summary ---
Author Organization [facility] Address [address] [place] [address] Care Team Providers Care [employer] Sergeant Name Role Phone Michelle Shannon MD Primary Care Provider + Reason for Visit * Reason Comments Follow-up Flu Vaccine Encounter Details Date Type Department Care Team (Late st Contact Info) Description 06/30/2020 13:30 EDT Office Visit [facility] [address] [place] [phone] Michelle Shannon MD [address] [place] [phone] MDD (major depressive disorder), recurrent episode, moderate (HCC-CMS) (Primary Dx); Need for influenza vaccination; Narcolepsy without cataplexy; REM sleep behavior disorder; GERD without esophagitis Social History Tobacco Use [...] Reading Time Taken Comments Blood Pressure 118/82 06/30/2020 1339 EDT Pulse 95 06/30/2020 1339 EDT Temperature 36.6 ??C (97.8 ??F) 06/30/2020 1339 EDT Respiratory Rate - - Oxygen Saturation 99% 06/30/2020 1339 EDT Inhaled Oxygen Concentration - - Weight 86.2 kg (190 lb) 06/30/2020 1339 EDT Height - - Body Mass Index 31.62 06/19/2020 1444 EDT documented in this encounter Ordered Prescriptions Prescription Sig Dispensed Refills Start Date End Da te topiramate (TOPAMAX) 50 mg tablet Take 1 Tab by mouth 2 times daily. 180 Tab 1 06/30/2020 01/14/2021 documented in this encounter Progress Notes * Michelle Shannon MD - 06/30/2020 1330 EDT Subjective: Patient ID: Jane Blair is an 45 y.o. female. Chief Complaint Patient presents with ??? Follow-up ??? Flu Vaccine HPI Jane is following up today for depression, anxiety, narcolepsy, and REM sleep disorder. She also recently saw ENT for symptoms of hoarseness. Her ENT diagnosed her with GERD and LPR. She was instructed to take omeprazole 40 mg twice a day and she notes improvement in nocturnal GERD symptoms as well as improved with quality. The plan is to reduce to omeprazole 20 mg twice a day when her current bottle runs out, and then she will follow-upwith ENT. She reports her mood has been doing well with the increase in Adderall to 30 mg twice a day. As long as she is compliant with her medications, her symptoms are doing well. She continues to take clonazepam daily and lorazepam rarely for breakthrough anxiety. She denies any further panic attacks since last seen. She continues to see a therapist and is working with her [employer] hardware designer, Aixa, twice a week. She desires permanent sterilization and is going for tubal ligation on 07/07/20. Scheduled for COVID testing, but the timing is off. Plans to call [facility]. Will have Nexplanon removed at the time of surgery. Patient Active Problem List Diagnosis ??? Narcolepsy without cataplexy ??? REM sleep behavior disorder ??? Migraine with aura ??? Episodic mood disorder (HCC-CMS) ??? MDD (major depressive disorder), recurrent episode, moderate (HCC-CMS) ??? GERD without esophagitis ??? Vitamin D deficiency ??? Allergic rhinitis ??? Anxiety Past Medical History: Diagnosis Date ??? Hearing difficulty ??? Unspecified cerebral artery occlusion with cerebral infarction ??? Vasovagal syncope Past Surgical History: Procedure Laterality Date ??? BREAST BIOPSY ??? TONSILLECTOMY 2019 Dr. Dumont Family History Problem Relation Age of Onset ??? Melanoma Mother ??? *Other(comment) Mother Sjogrens and ? RA, SAMANIEGO ??? Diabetes Mother ??? Obesity Mother ??? Hypertension Mother ??? Elevated Lipids Mother ??? Hemochromatosis Mother ??? Heart Attack Mother ??? Breast Cancer Maternal Grandmother ??? Colon Cancer Maternal Grandfather ??? Breast Cancer Maternal Aunt ??? Unknown Father ??? Migraines Paternal Grandmother ??? Alcohol Abuse Brother fatty liver and GERD Social Social History Tobacco Use ??? Smoking status: Never Smoker ??? Smokeless tobacco: Never Used Substance Use Topics ??? Alcohol use: No ??? Drug use: Not on file Current Outpatient Medications on File Prior to Visit Medication Sig Dispense Refill ??? albuterol 90 mcg/actuation inhaler Inhale 1-2 Puffs as directed every 6 hours as needed (shortness of breath). Or 15-30 minutes prior to exercise 1 Inhaler 0 ??? ARIPiprazole (ABILIFY) 10 mg tablet Take 1 Tab by mouth at bedtime. 90 Tab 2 ??? uhmausg-cmjnjxmdsyham-nuwlgjoc (EXCEDRIN MIGRAINE) 250-250-65 mg per tablet Take 1 Tab by mouthevery 6 hours as needed. Indications: MIGRAINE ??? Azelaic Acid (FINACEA) 15 % gel Apply topically 2 times daily. ??? cholecalciferol, Vitamin D3, 1,000 unit tablet Take 1,000 Units by mouth daily. ??? ciclopirox (PENLAC) 8 % solution Apply to affected nail daily. Removed layers weekly with rubbing alcohol 1 Bottle 2 ??? clonazePAM (KLONOPIN) 1 [...] mg tablet Take as directed. Indications: MIGRAINE 12 Tab 11 ??? OMEPRAZOLE ORAL Take 40 mL by mouth 2 times daily. No current facility-administered medications on file prior to visit. No Known Allergies Review of Systems Constitutional: Positive for malaise/fatigue and weight loss. Negative for diaphoresis. Cardiovascular: Negative for palpitations. Musculoskeletal: Positive for joint pain. Neurological: Positive for tremors. Psychiatric/Behavioral: Positive for depression. Negative for suicidal ideas. The patient is nervous/anxious and has insomnia. Objective: BP 118/82 Pulse 95 Temp 36.6 ??C (97.8 ??F) (Tympanic) Wt 86.2 kg (190 lb) SpO2 99% BMI 31.62 kg/m?? Physical Exam Constitutional: She appears well-developed and well-nourished. No distress. Cardiovascular: Normal rate, regular rhythm, Skin: Minimal evidence of skin picking Psychiatric: Her mood appears anxious. Her speech is rapid and/or pressured. She is not agitated, not hyperactive and not withdrawn. She does not exhibit a depressed mood. Pt is mildly forgetful. Assessment: Plan: Jane was seen today for follow-up and flu vaccine. Diagnoses and all orders for this visit: MDD (major depressive disorder), recurrent episode, moderate ([facility]-CMS) Need for influenza vaccination - INFLUENZA VACCINE QUAD PF 0.5 ML IM (6 MOS+) Narcolepsy without cataplexy REM sleep behavior disorder GERD without esophagitis Other orders - topiramate (TOPAMAX) 50 mg tablet; Take 1 Tab by mouth 2 times daily. GERD and hoarseness- s/p tonsillectomy Aug 2019. Dx by ENT with LPR Avoid alcohol, peppermint, fatty foods and caffeine Limit carbonated beverages Sleep with the head of the bed elevated Avoid tight fitting clothing Avoid eating large meals close to bedtime Work on weight loss Continue omeprazole 40mg bid until bottle runs out, then reduce to 20mg bid, then f/u with ENT Major depressive disorder, with increased stressors due to the pandemic. She also has narcolepsy and REM sleep disorder. Improved with increase in Adderrall Adderall XR 30mg bid Continue duloxetine 60mg Melatonin at hs Abilify 10mg a day Clonazepam 1 mg at bedtime Continue Lorazepam 1 mg p.o. daily as prn Continue with therapist at [facility] Continue working with [employer] Aixa Bonilla twice a week Obesity- weight is higher Encouraged caution with diet Try to increase daily walks to at least 3 times a week Already on Topamax, could increase the dose to assist with weight loss Sclerosing lesion left breast Yearly MRI scheduled 09/03 Mammo was just done Desire for permanent sterilization Plans to have tubal ligation with Dr. Woo 07/07 Discussed risks of using post-opiates in combo with benzos. Try to avoid taking these together Michelle Shannon MD documented in this encounter Plan of Treatment Upcoming Encounters Date Type Department Care Team (Late st Contact Info) Description 06/08/2024 13:30 EDT Office Visit [facility] [address] [place] [address] Michelle Shannon MD [address] [place] [phone] documented as of this encounter Visit Diagnoses Diagnosis MDD (major depressive disorder), recurrent episode, moderate ([facility]-CMS)- Primary Major depressive disorder, recurrent episode, moderate Need for influenza vaccination Need for prophylactic vaccination and inoculation against influenza Narcolepsy without cataplexy REM sleep behavior disorder GERD without esophagitis Esophageal reflux documented in this encounter Discontinued Medications Medication Sig Discontinue Reason Start Date End Da te pantoprazole (PROTONIX) 40 mg tablet Take 1 Tab by mouth daily. Therapy completed 02/22/2020 06/30/2020 topiramate (TOPAMAX) 50 mg tablet Take 1 Tab by mouth 2 times daily. Reorder 12/24/2019 06/30/2020 documented as of this encounter Orders Immunization/Injection Count Last Ordered Date First Ordered Date INFLUENZA VACCINE QUAD PF 0. 5 ML IM (6 MOS+) 1 06/30/2020 documented in this encounter Care Teams [employer] Relationship Specialty Start Date End Date Michelle Shannon MD [address] [place] [phone] PCP - General 09/08/11 documented as of this encounter
--- OUTSIDE RECORDS SUMMARY | 2024-04-28 15:54 | XMS_ITS | Encounter Summary ---
Author Organization [facility] Address [address] [place] [address] Care Team Providers Care Hotel Office Manager Name Role Phone Michelle Shannon MD Primary Care Provider + Reason for Referral * Radiology Services (Routine) - Closed Specialty Diagnoses / Procedures Referred By Thelma long Referred To Contact Radiology Diagnoses Sclerosing adenosis of left breast Procedures MR BREAST BILAT. WO AND OR W CONTRAST iMchelle Shannon MD [address] [place] [phone] Referral ID Status Reason Start Date Expiration Date Visits Re quested Visits Authorized [id number] Closed 03/30/2020 1 1 Reason for Visit * Radiology Services (Routine) - Closed Specialty Diagnoses / Procedures Referred By Thelma long Referred To Contact Radiology Diagnoses Sclerosing adenosis of left breast Procedures MR BREAST BILAT. WO AND OR W CONTRAST Michelle Shannon MD [address] [place] [phone] Referral ID Status Reason Start Date Expiration Date Visits Re quested Visits Authorized [id number] Closed 03/30/2020 1 1 Encounter Details Date Type Department Care Team (Latest Contact Info) Description 11/17/2020 19:53 EST - 11/17/2020 23:59 EST Hospital [facility] Radiology MRI - Main [place] [address] [place] [address] Sclerosing adenosis of left breast Discharge Disposition: Home or Self Care [...] 8:45 EST documented as of this encounter Last Filed Vital Signs Vital Sign Reading Time Taken Comments Blood Pressure - - Pulse - - Temperature - - Respiratory Rate - - Oxygen Saturation - - Inhaled Oxygen Concentration - - Weight - - Height 162.6 cm (5' 4) 11/17/20202028 EST Body Mass Index - - documented in this encounter Medications at Time [...] at bedtime. 90 Tab 2 10/29/2020 06/08/2021 Azelaic Acid (FINACEA) 15 % gel Apply topically 2 times daily. 02/06/2021 cholecalciferol, Vitamin D3, 1,000 unit tablet Take 1 Tablet by mouth daily. 04/25/2023 clonazePAM (KLONOPIN) 1 mg tablet TAKE 1 TABLET BY MOUTH DAILY AT BEDTIME. MAX: 1 MG 28 Tab 2 10/13/2020 01/26/2021 dextroamphetamine-amph etamine (ADDERALL XR) 30 mg XR capsule Take 1 Cap by mouth 2 times daily. Daily Max: 2 Caps 56 Cap 10/29/2020 12/02/2020 DULoxetine (CYMBALTA) 60 mg capsule Take 1 Cap by mouth daily. 90 Cap 1 09/12/2020 12/26/2020 ferrous gluconate (FERGON) 324 mg (38 mg iron) tablet Take 1 Tab by mouth daily with breakfast. 100 Tab 10/07/2020 04/17/2021 fluticasone propionate (FLONASE) 50 mcg/actuation nasal spray [...] Max: 2 mg 60 Tab 08/20/2020 11/24/2020 melatonin 10 mg capsule Take by mouth. [...] Info) Description 06/08/2024 13:30 EDT Office Visit [facility] [address] [place], [place] [phone] Michelle Shannon MD [address] [place] [phone] documented as of this encounter Procedures Procedure Name Priority Date/Time Associated Diagnosis Comments MR BREAST BILAT. WO AND OR W CONTRAST Routine 11/17/2020 21:45 EST Sclerosing adenosis of left breast documented in this encounter Results * MR BREAST BILAT. WO AND OR W CONTRAST (11/17/2020 21:45 EST) Anatomical Region Laterality Modality Breast Bilateral Magnetic Resonan ce 11/18/2020 16:2 6 EST Narrative 11/18/2020 16:26 EST MR BREAST BILAT. WO AND OR W CONTRAST ??11/17/2020 8:30 PM Signs and Symptoms/Comments: Sclerosing lesion left breast Comparison: Multiple prior MRIs including March 2019, July 2018 and January 2018. Comparison is also made to outside mammography most recently in April 2020. Technique: ?? The patient was placed in a dedicated breast coil in the prone position and scanned on the 3 Alana scanner. ??All images were obtained axially. ??Initially, T1- weighted [id number] images were obtained followed by T2-weighted images. ??Dynamic high temporal resolution and high spatial resolution T1-weighted fat-suppressed images were then obtained, first pregadolinium, followed by four sets of images after gadolinium was administered intravenously. ??8.7 cc of Gadavist was administered. The images were reviewed on a PACS workstation and independent [employer] workstation with and without subtraction. ??3D reconstructions were obtained in coronal, sagittal and MIP projections. ?? Right breast findings: There is heterogeneous fibroglandular tissue and moderate background parenchymal enhancement. There are scattered benign cysts and clusters of cysts. There are no enhancing findings of concern. Left breast findings: There is heterogeneous fibroglandular tissue and moderate background parenchymal enhancement. A clip marking the site of the biopsy in the left breast at 3:00 is noted with no significant enhancement in the region. This is the site where a complex sclerosing lesion was diagnosed at a biopsy performed outside in 2017. There are scattered cysts and clusters of cysts. There are no enhancing findings of concern. Impression both breasts: Benign, BI-RADS Category 2. Recommendation: 1. Annual screening mammography is next due in April 2021. 2. If this patient's calculated lifetime risk of breast cancer is greater than 20%, then according to the [place] [employer] guidelines, annual MRI screening is recommended in addition to mammography. Overall assessment: BI-RADS Category Assessment 2: Benign Findings. The patient will be notified of the MRI results by telephone call from a member of the radiology department. In addition, she will receive a lay letter from radiology. Michelle Shannon MD IMG MRI ORDERABL ES documented in this encounter Visit Diagnoses Diagnosis Sclerosing adenosis of left breast documented in this encounter Administered Medications Inactive Administered Medications - up to 3 most recent administrations Medication Order MAR Action Action Date Dose Rate Site gadobutroL (GADAVIST PFS) solution solution 1-15 mmol 1-15 mmol (1-15 mL), intravenous, Once in imaging, 1 dose, Starting on Tue11/17/20 at 2026, Until Tue11/17/20 at 2100, Routine, Imaging Protocol Orders Given 11/17/2020 21:01 EST 8.7 mmol documented in this encounter Care Teams Hotel Office Manager Relationship Specialty Start Date End Date Michelle Shannon MD [address] [place] [phone] PCP - General 09/08/11 documented as of this encounter
--- OUTSIDE RECORDS SUMMARY | 2024-04-28 15:54 | XMS_ITS | Encounter Summary ---
Author Organization [facility] Address [address] [place] [address] Care Team Providers Care Hr Advisor Name Role Phone Michelle Shannon MD Primary Care Provider + Reason for Visit * Reason Onset Date Comments Medications Refill 03/11/2021 Encounter Details Date Type Department Care Team (Late st Contact Info) Description 03/11/2021 Refill [facility] [address] [place] [phone] Michelle Shannon MD [address] [place] [phone] Medications Refill Social History Tobacco Use [...] daily. Daily Max: 2 Capsules 56 capsule 03/11/2021 04/13/2021 documented in this encounter Miscellaneous Notes * Telephone Encounter - Es Galan - 03/11/2021 0948 EDT Refill. Es Galan documented in this encounter Plan of Treatment Upcoming Encounters Date Type Department Care Team (Late st Contact Info) Description 06/08/2024 13:30 EDT Office Visit [facility] [address] [place], [place] [phone] Michelle Shannon MD [address] [place] [phone] documented as of this encounter Visit Diagnoses Not on filedocumented in this encounter Discontinued Medications Medication Sig Discontinue Reason Start Date End Da te dextroamphetamine-ampheta mine (ADDERALL XR) 30 mg XR capsule Take 1 Cap by mouth 2 times daily. Daily Max: 2 Caps Reorder 02/03/2021 03/11/2021 documented as of this encounter Care Teams Hr Advisor Relationship Specialty Start Date End Date Michelle Shannon MD [address] [place] [phone] PCP - General 09/08/11 documented as of this encounter
--- OUTSIDE RECORDS SUMMARY | 2024-04-28 15:54 | XMS_ITS | Encounter Summary ---
Author Organization [facility] Address [address] [place] [address] Care Team Providers Care Paediatric Physiotherapist Name Role Phone Michelle Shannon MD Primary Care Provider + Reason for Visit * Reason Comments Migraine Encounter Details Date Type Department Care Team (Late st Contact Info) Description 05/14/2021 14:00 EDT Office Visit [facility] [address] [place] [address] [phone] Luiz Grant, OLINDA [address] [place] [address] [phone] Intractable chronic migraine without aura and without status migrainosus (Primary Dx) Social History Tobacco Use Types [...] Sign Reading Time Taken Comments Blood Pressure 122/86 05/14/2021 1412 EDT Pulse 86 05/14/2021 1412 EDT Temperature 37 ??C (98.6 ??F) 05/14/2021 1412 EDT Respiratory Rate 18 05/14/2021 1412 EDT Oxygen Saturation 98% 05/14/2021 1412 EDT Inhaled Oxygen Concentration - - Weight - - Height - - Body Mass Index - - documented in this encounter Ordered Prescriptions Prescription Sig Dispensed Refills Start Date End Da te rizatriptan (MAXALT) 5 mg tablet Take 1 tab by mouth at the beginning of a migraine. May repeat after 2 hours if not resolved. Do not exceed 5 tablets per month. 12 Tablet 2 05/14/2021 06/26/2021 documented in this encounter Progress Notes * Luiz Grant, DNP - 05/14/2021 1400 EDT Subjective: Patient ID: Jnae Blair is an 45 y.o. female. Chief Complaint Patient presents with ??? Migraine HPI Jane presents to the clinic today to discuss her migraines. She has a longstanding history of migraine with aura and has previously seen Dr. Goff in the headache clinic here at [facility]. She is currently on Topamax 75mg BID, Dr. Shannon increased this on 01/2021. Jane says that despite increasing the Topamax, she continues to get migraines - about two times per month. When the migraines come on they typically start in the morning before she arises from bed. She uses Excedrin to try and abort theheadache but also has a script for Amerge 2.5mg tabs that she uses if she does not get relief with the Excedrin. Unfortunately the Amerge does not seem to help. She has tried taking an additional dose two hours after the first but she typically gets nauseous and vomits with her migraines so the medication does not seem to have enough time to digest in her system before she vomits. She asks about trying a sublingual or injectable triptan. In reviewing her chart it appears that she has tried Imitrex before but she has not tried Maxalt. She asks about increasing her Topamax further to try and prevent migraines. She has a hx of TMJ and grinds her teeth at night. She is seeing her dentist soon to be fitted for a mouth guard for this and is hoping this might help with the migraines. She has a hx of environmental allergies and uses loratadine 10mg at bedtime for this, she has Flonase but only uses it periodically. Patient Active Problem List Diagnosis ??? Narcolepsy [...] 2 weeks then increase to 1200mg twice [id number] Cap 3 ??? adapalene 0.3 % gel [...] mouth at bedtime. 90 Tab 2 ??? gofrssk-nvrcthfxxhcif-yrrsmdxj (EXCEDRIN MIGRAINE) 250-250-65 mg per tablet Take [...] Allergies Review of Systems Constitutional: Negative for chills, fever and malaise/fatigue. HENT: Positive for congestion. Neurological: Positive for headaches. Negative for dizziness. - See HPI Objective: BP 122/86 Pulse 86 Temp 37 ??C (98.6 ??F) Resp 18 SpO2 98% Physical Exam Constitutional: General: She is not in acute distress. Appearance: She is well-developed and well-nourished. She is not diaphoretic. Musculoskeletal: General: Normal range of motion. Cervical back: Normal range of motion and neck supple. Skin: General: Skin is warm and dry. Findings: No erythema or rash. Neurological: Mental Status: She is alert and oriented to person, place, and time. Psychiatric: Mood and Affect: Mood and affect normal. Behavior: Behavior normal. Thought Content: Thought content normal. Judgment: Judgment normal. Assessment: Migraines - Currently on Topamax 75mg BID for prophylaxis and Amerge 2.5mg every day PRN for . The Amerge does not seem to be helping due to frequent N/V associated with her migraines and I agree that her stomach is likely not able to absorb the medication before she ends up vomiting it up.She currently reports a migraine frequency of two times per month. Plan: Jane was seen today for migraine. Diagnoses and all orders for this visit: Intractable chronic migraine without aura and without status migrainosus - COMPREHENSIVE METABOLIC PANEL (CMP) Other orders - rizatriptan (MAXALT) 5 mg tablet; Take 1 tab by mouth at the beginning of a migraine. May repeat after 2 hours if not resolved. Do not exceed 5 tablets per month. -Discussed the various triptan options with Jane and we decided to d/c the Amerge and try Maxalt 5mg sub-lingual -Told Jane that she could repeat the Maxalt in two hours if without relief -She will let me know if this isn't helping and we could increase the dose to 10mg per dose if needed -In reviewing UptoDate, it looks like most guidelines recommend a maximum of 200mg total of the Topamax per day for migraine prophylaxis -This medication should also be renally dosed so we should probably check a metabolic panel prior to increasing any further -Other options include trying a BB like propranolol which I cannot see she has tried in the past -Can follow-up with Jane by phone pending her blood work and discuss further, she also sees Dr. Shannon for an upcoming visit next month I spent a total of 25 minutes in face to face time with this patient and 20 minutes of that time was spent in counseling and coordination of care as described in the progress note. Luiz Grant DNP documented in this encounter Plan of Treatment Upcoming Encounters Date Type Department Care Team (Late st Contact Info) Description 06/08/2024 13:30 EDT Office Visit [facility] [address] [place], [place] [phone] Michelle Shannon MD [address] [place] [phone] documented as of this encounter Procedures Procedure Name Priority Date/Time Associated Diagnosis Comments COMPREHENSIVE METABOLIC PANEL (CMP) Routine 05/14/2021 14:17 EDT Intractable chronic migraine without aura and without status migrainosus documented in this encounter Results * (ABNORMAL) COMPREHENSIVE METABOLIC PANEL (CMP) (05/14/2021 14:17 ED) Sodium 142 136 - 145 mmol/L 05/14/2021 19:10 [facility] Potassium 4.4 3.5 - 5.0 mEq/L 05/14/2021 19:10 [facility] Chloride 108 96 - 110 mEq/L 05/14/2021 19:10 [facility] CO2 Total 19(L) 22 - 32 mEq/L 05/14/2021 19:10 [facility] Glucose 98 70 - 100 mg/dL 05/14/2021 19:10 [facility] BUN 19 10 - 26 mg/dL 05/14/2021 19:10 [facility] Creatinine 0.85 0.52 - 1.04 mg/dL 05/14/2021 19:10 [facility] eGFR 82 >60 mL/min/1.7 3m2 05/14/2021 19:10 [facility] Comment:eGFR calculated chichi wall CKD-EPI equation for non- Americans. Multiply eGFR by 1.16 for patients. Total Protein 6.8 6.3 - 8.2 g/dL 05/14/2021 19:10 [facility] Albumin 4.0 3.4 - 4.9 g/dL 05/14/2021 19:10 [facility] Alkaline Phosphatase 97 38 - 126 U/L 05/14/2021 19:10 [facility] AST 17 15 - 46 U/L 05/14/2021 19:10 [facility] ALT 17 <35 U/L 05/14/2021 19:10 [facility] Bilirubin, Total <0.5 <1.4 mg/dL 05/14/20 19:10 [facility] Calcium 10.2 8.5 - 10.5 mg/dL 05/14/2021 19:10 [facility] Calculated Calcium 10.2 8.5 - 10.5 mg/dL 05/14/2021 19:10 [facility] Blood VENOUS BLOOD / Unknown Venipuncture / Unknown 05/14/2021 14:17 EDT 05/14/2021 18:49 EDT Luiz Grant DNP CHEMISTRY & BLOO D GAS ORDERABLES [facility] [address] [place] [address] documented in this encounter Visit Diagnoses Diagnosis Intractable chronic migraine without aura and without status migrainosus- Primary Chronic migraine without aura, with intractable migraine, so stated, without mention of status migrainosus documented in this encounter Discontinued Medications Medication Sig Discontinue Reason Start Date End Da te naratriptan (AMERGE) 2.5 mg tabletIndications:migraine Take as directed. Order modification 02/06/2021 05/14/2021 documented as of this encounter Care Teams Paediatric Physiotherapist Relationship Specialty Start Date End Date Michelle Shannon MD [address] [place] [phone] PCP - General 09/08/11 documented as of this encounter
--- OUTSIDE RECORDS SUMMARY | 2024-04-28 15:55 | XMS_ITS | Encounter Summary ---
Author Organization [facility] Address [address] [place] [address] Care Team Providers Care Broadcast Maintenance Engineer Name Role Phone Michelle Shannon MD Primary Care Provider + Reason for Visit * Reason Comments Injections * Prior Authorization (Routine) - Order Cancelled Specialty Diagnoses / Procedures Referred By Thelma long Referred To Contact Orthopedic Surgery Diagnoses Chronic right shoulder pain Ruslan García MD [address] [place] [phone] Ruslan García MD [address] [place] [phone] Referral ID Status Reason Start Date Expiration Date Visits Requested Visits Authorized [id number] Order Cancelled Specialty Services Required 06/18/2020 1 1 Encounter Details Date Type Department Care Team (Latest Contact Info) Description 06/19/2020 14:40 EDT Procedure visit [facility] - [address] [address] Ruslan García MD [address] [place] [phone] Impingement syndrome of right shoulder (Primary Dx) Social History Tobacco Use Types [...] - Inhaled Oxygen Concentration - - Weight 83 kg (183 lb) 06/19/2020 1444 EDT Height 165.1 cm (5' 5) 06/19/2020 1444 EDT Body Mass Index 30.45 06/19/2020 1444 EDT documented in this encounter Progress Notes * Ruslan García MD - 06/19/2020 1440 EDTAssociated Order(s): Medication Only Injection Post-Procedure Diagnose(s): Impingement syndrome of right shoulder Chief Complaint Patient presents with ??? Right Shoulder - Injections SUBJECTIVE: Jane Blair is a 45 y.o. female who present for a ultrasound guided injection into her right subacromial space. Patient has a diagnosis of right shoulder pain from impingement syndrome. Last injection was December 2018. Risks, benefits and alternatives were discussed with the patient and consent was obtained. The final Verification/time out immediately prior to incision/procedure has been conducted by me and membersof the procedural team as appropriate to their involvement in the procedure. The patient???s identity, procedure, and when applicable the: side/site, patient position, availability of implants and any special equipment or special requirements was verbally confirmed prior to the procedure PROCEDURE NOTE: Right shoulder subacromial injection under ultrasound guidance The patient was brought to the examination room. The correct side was identified in a mcarthur moment to accurately inject the proper joint. After verbal consent obtained, area of superolateral shoulder was palpated and landmarks were noted. The acromion, supraspinatus tendon and greater tuberosity were localized under ultrasound. Images were saved. Pt prepped with isopropyl alcohol and draped. The region to be injected was anesthestized using 3 cc of 2% lidocaine. Under sterile conditions and using ultrasound for guidance, the subacromial space was accessed witha 1.5 inch 22 gauge needle. The subacromial space was infused with 3 cc 2% lidocaine, 3 cc 0.5% marcaine and 2 cc 40 mg/cc kenalog without resistance. The bursa was noted to distend. Images were saved of the injection. Cleansed with isopropyl alcohol and bandaged. The patient tolerated the procedure well. After care was reviewed including icing, use of NSAIDs prn and activity modification. Will follow up as needed. If this doesn't work, we will consider an US guided AC joint injection. I discussed all of the above verbally with patient, no barriers to understanding. The patient indicated understanding and agrees to the above plan. Ruslan García MD 14:50 06/19/2020 Procedure: Medication Only Injection Medications: 3 mL bupivacaine (PF) 0.5%; 80 mg triamcinolone acetonide 40 mg/mL; 3 mL lidocaine 20 mg/mL (2 %) documented in this encounter Plan of Treatment Upcoming Encounters Date Type Department Care Team (Late st Contact Info) Description 06/08/2024 13:30 EDT Office Visit [facility] [address] [place], [place] [phone] Michelle Shannon MD [address] [place] [phone] documented as of this encounter Procedures Procedure Name Priority Date/Time Associated Diagnosis Comments MEDICATION ONLY INJECTION Routine 06/19/2020 14:40 EDT Impingement syndrome of right shoulder documented in this encounter Results * Medication Only Injection (06/19/2020 14:40 EDT) Narrative [facility] POINT OF CARE - 06/19/2020 14:40 EDT Ruslan García MD ? 06/19/2020 15:08 Medication Only Injection Medications: 3 mL bupivacaine (PF) 0.5%; 80 mg triamcinolone acetonide 40 mg/mL; 3 mL lidocaine 20 mg/mL (2 %) Ruslan García MD PROCEDURE/MINOR SHAY RGICAL ORDERABLES [facility] POINT OF CARE documented in this encounter Visit Diagnoses Diagnosis Impingement syndrome of right shoulder- Primary Other affections of shoulder region, not elsewhere classified documented in this encounter Administered Medications Inactive Administered Medications - up to 3 most recent administrations Medication Order MAR Action Action Date Dose Rate Site bupivacaine (PF) (MARCAINE) 0.5% injection 3 mL 3 mL, intra-articular, Once PRN Procedure, 1 dose, Starting on Kell 06/19/20 at 1508, Until Kell 06/19/20 at 1508, Routine Given 06/19/2020 15:08 EDT 3 mL lidocaine 20 mg/mL (2 %) injection 3 mL 3 mL, other, Once PRN Procedure, 1 dose, Starting on Kell 06/19/20 at 1508, Until Kell 06/19/20 at 1508, Routine Given 06/19/2020 15:08 EDT 3 mL triamcinolone acetonide (KENALOG-40) injection 80 mg 80 mg, other, Once PRN Procedure, 1 dose, Starting on Kell 06/19/20 at 1508, Until Kell 06/19/20 at 1508, Routine Given 06/19/2020 15:08 EDT 80 mg documented in this encounter Historical Medications * This list may reflect changes made after this encounter. Medication Sig Dispensed Refills Start Date End Date OMEPRAZOLE ORAL Take 40 mL by mouth 2 times daily. 02/16/2022 added in this encounter Care Teams Broadcast Maintenance Engineer Relationship Specialty Start Date End Date Michelle Shannon MD [address] [place] [phone] PCP - General 09/08/11 documented as of this encounter
--- OUTSIDE RECORDS SUMMARY | 2024-04-28 15:55 | XMS_ITS | Encounter Summary ---
Author Organization [facility] Address [address] [place] [address] Care Team Providers Care Gas Welding Equipment Mechanic Name Role Phone Michelle Shannon MD Primary Care Provider + Encounter Details Date Type Department Care Team (Latest Contact Info) Description 02/22/2020 Travel Social History Tobacco Use Types Packs/Day Years Used Date Smoking Tobacco: Never Smokeless Tobacco: Never Alcohol Use Standard Drinks/Week Comments No 0 (1 standard drink = 0.6 oz pur e alcohol) Sex and Gender Information Value Date Recorded Sex Assigned at Not on file Gender Identity Female 11/10/2020 8:41 EST Sexual Orientation Straight 12/07/2023 23 :06 EDT COVID-19 Exposure Response Date Recorded In the last month, have you been in contact with someone who was confirmed or suspected to have Coronavirus / COVID-19? No / Unsure 02/22/2020 10:44 EDT documented as of this encounter Plan of Treatment Upcoming Encounters Date Type Department Care Team (Late st Contact Info) Description 06/08/2024 13:30 EDT Office Visit [facility] [address] [place], [place] [phone] Michelle Shannon MD [address] [place] [phone] documented as of this encounter Visit Diagnoses Not on filedocumented in this encounter Care Teams Gas Welding Equipment Mechanic Relationship Specialty Start Date End Date Michelle Shannon MD [address] [place] [phone] PCP - General 09/08/11 documented as of this encounter
--- OUTSIDE RECORDS SUMMARY | 2024-04-28 15:55 | XMS_ITS | Encounter Summary ---
Author Organization [facility] Address [address] [place] [address] Care Team Providers Care Inspector Final Assembly Conveyor Line Name Role Phone Michelle Shannon MD Primary Care Provider + Reason for Visit * Reason Comments Other Encounter Details Date Type Department Care Team (Late st Contact Info) Description 05/30/2020 Refill [facility] [address] [place] [phone] Michelle Shannon MD [address] [place] [phone] Other Social History Tobacco Use Types Packs/Day [...] 1 MG 28 Tab 2 05/30/2020 10/13/2020 documented in this encounter Plan of Treatment Upcoming Encounters Date Type Department Care Team (Late st Contact Info) Description 06/08/2024 13:30 EDT Office Visit [facility] [address] [place] [address] Michelle Shannon MD [address] [place] [phone] documented as of this encounter Visit Diagnoses Not on filedocumented in this encounter Discontinued Medications Medication Sig Discontinue Reason Start Date End Da te clonazePAM (KLONOPIN) 1 mg tablet Take 1 Tab by mouth at bedtime. Daily Max: 1 mg 03/26/2020 05/30/2020 documented as of this encounter Care Teams Inspector Final Assembly Conveyor Line Relationship Specialty Start Date End Date Michelle Shannon MD [address] [place] [phone] PCP - General 09/08/11 documented as of this encounter
--- OUTSIDE RECORDS SUMMARY | 2024-04-28 15:55 | XMS_ITS | Encounter Summary ---
Author Organization [facility] Address [address] [place] [address] Care Team Providers Care Inside Sales Person Name Role Phone Michelle Shannon MD Primary Care Provider + Reason for Visit * Reason Onset Date Comments Medications Refill 06/17/2020 Encounter Details Date Type Department Care Team (Late st Contact Info) Description 06/17/2020 Refill [facility] [address] [place] [phone] Michelle Shannon MD [address] [place] [phone] Medications Refill Social History Tobacco Use [...] daily with breakfast. 100 Tab 06/17/2020 10/07/2020 LORazepam (ATIVAN) 1 mg tablet Take 1 Tab by mouth 2 times daily. Daily Max: 2 mg 60 Tab 06/17/2020 08/20/2020 documented in this encounter Miscellaneous Notes * Telephone Encounter - Michelle Adkins - 06/17/2020 1254 EDT Pt Requested refill ' LORazepam (ATIVAN) 1 mg tablet Take 1 mg bid ferrous gluconate (FERGON) 324 mg (38 mg iron) tablet Take 1 tab po with breakfast. Sent to sandernicole Adkins documented in this encounter Plan of Treatment Upcoming Encounters Date Type Department Care Team (Late st Contact Info) Description 06/08/2024 13:30 EDT Office Visit [facility] [address] [place], [place] [phone] Michelle Shannon MD [address] [place] [phone] documented as of this encounter Visit Diagnoses Not on filedocumented in this encounter Discontinued Medications Medication Sig Discontinue Reason Start Date End Da te LORazepam (ATIVAN) 1 mg tablet Take 1 Tab by mouth 2 times daily. Daily Max: 2 mg Reorder 12/26/2019 06/17/2020 ferrous gluconate (FERGON) 324 mg (38 mg iron) tablet Take 1 Tab by mouth daily with breakfast. Reorder 02/22/2020 06/17/2020 documented as of this encounter Care Teams Inside Sales Person Relationship Specialty Start Date End Date Michelle Shannon MD [address] [place] [phone] PCP - General 09/08/11 documented as of this encounter
--- OUTSIDE RECORDS SUMMARY | 2024-04-28 15:55 | XMS_ITS | Encounter Summary ---
Author Organization [facility] Address [address] [place] [address] Care Team Providers Care Transportation Aide Name Role Phone Michelle Shannon MD Primary Care Provider + Reason for Visit * Reason Comments Medication Management Encounter Details Date Type Department Care Team (Late st Contact Info) Description 05/09/2020 13:30 EDT [facility]medicine [facility] [address] [place] [phone] Michelle Shannon MD [address] [place] [phone] Hoarseness (Primary Dx); MDD (major depressive disorder), recurrent episode, moderate (HCC-CMS); Narcolepsy without cataplexy; REM sleep behavior disorder Social History Tobacco [...] XR capsule Take 1 Cap by mouth daily. Daily Max: 1 Cap 56 Cap 06/04/2020 06/23/2020 dextroamphetamine-ampheta mine (ADDERALL XR) 10 mg XR capsule 1 Tab bid in addition to 20mg bid 30 Cap 05/20/2020 06/23/2020 documented in this encounter Progress Notes * Michelle Shannon MD - 05/09/2020 9933 EDT Subjective: Patient ID: Jane Blair is an 44 y.o. female. TELEMEDICINE VIDEO VISIT The patient had a regularly scheduled follow up visit today, but due to coronavirus precautions, a tele-health visit was offered via video-conferencing. The concept of telemedicine has been describedto the patient. Patient has been informed of [...] The location of the provider: medical office Chief Complaint Patient presents with ??? Medication Management HPI Jane scheduled this appointment today to discuss adjustment in her medication for REM sleep disorder. She also has a history of depression, anxiety, and narcolepsy and new onset hoarseness. She has been experiencing hoarseness for the last several weeks. She denies any recent changes in her medication other than self adjustment of her Abilify between 5 and 10 mg. She had been taking a thyroid support supplement through her review scheduling coordinator but has stopped this for several weeks. She feelssome discomfort in the left side of her throat as if there is a lump there. She has trouble speaking up and projecting her voice. She has no history of throat trauma, other than having her tonsils removed in August. Denies any difficulty swallowing. She has tried gargling with warm salt water without benefit. Cold foods seem to help reduce her symptoms. Regarding her anxiety and REM sleep disorder, she continues to take Adderall, topiramate, duloxetine, clonazepam daily and lorazepam as needed. As above, she has been self adjusting Abilify. She describes frequently missing her 10 mg dose and therefore reduced it to 5 mg and try to be more consistent with it. Once she was taking it regularly, she increased the dose back to 10 mg every day. Her santiago n issue right now is difficulty getting out of bed in the morning. She takes Adderall XR 20 mg in the a.m. and 30 mg at at bedtime, and wonders if she can increase to 30 twice a day to help her get out of bed. Patient Active Problem List Diagnosis ??? Narcolepsy [...] mouth at bedtime. 90 Tab 2 ??? cxskkbj-ewjhhldbruqrc-lbvpyygy (EXCEDRIN MIGRAINE) 250-250-65 mg per tablet Take [...] 2 ??? clonazePAM (KLONOPIN) 1 mg tablet Take 1 Tab by mouth at bedtime. Daily Max: 1 mg 28 Tab 0 ??? dextroamphetamine-amphetamine (ADDERALL XR) 20 mg XR capsule Take 1 Cap by mouth 2 times daily.Daily Max: 2 Caps 60 Cap 0 ??? DULoxetine (CYMBALTA) 60 mg [...] directed. Indications: MIGRAINE 12 Tab 11 ??? pantoprazole (PROTONIX) 40 mg tablet Take 1 Tab by mouth daily. 90 Tab 1 ??? topiramate (TOPAMAX) 50 mg tablet Take [...] patient is nervous/anxious and has insomnia. Objective: There were no vitals taken for this visit. Physical Exam Constitutional: She appears well-developed and well-nourished. No distress. Voice is higher pitch like Yuri Mouse Skin: Less evidence of skin picking on face Psychiatric: Her mood appears anxious. Her speech is rapid and/or pressured. She is not agitated, not hyperactive and not withdrawn. She does not exhibit a depressed mood. Pt is mildly forgetful. Assessment: Plan: Jane was seen today for medication management. Diagnoses and all orders for this visit: Hoarseness MDD (major depressive disorder), recurrent episode, moderate ([facility]) Narcolepsy without cataplexy REM sleep behavior disorder Other orders - dextroamphetamine-amphetamine (ADDERALL XR) 10 mg XR capsule; 1 Tab bid in addition to 20mg bid - dextroamphetamine-amphetamine (ADDERALL XR) 30 mg XR capsule; Take 1 Cap by mouth daily. Daily Max: 1 Cap Acute and persistent hoarseness- s/p tonsillectomy Aug 2019. ? VCD or spasm vs nodule Refer to ENT for direct visualization Possibly a candidate for Botox Major depressive disorder, with increased stressors due to the pandemic. She also has narcolepsy and REM sleep disorder Increase Adderall XR to 30mg bid Continue duloxetine 60mg Abilify 10mg at hs Melatonin at hs Abilify 10mg a day Continue clonazepam 1 mg at at bedtime Continue Lorazepam 1 mg p.o. daily as prn She is aware of the potential for habituation and tolerance and is aware not to take this on a daily basis. Continue with therapist at [facility]- Erasmo Continue working with RANJIT Bonilla twice a week Narcolepsy and REM sleep disorder- stable Continue Clonazepam 1mg at night with Lorazepam as needed Obesity- Discussed removing 100-200mg snacks from her diet Already on Topamax, could increase the dose to assist with weight loss Sclerosing lesion left breast Yearly MRI due, order placed, still awaiting appt She was encouraged to schedule her yearly mammogram as well Plans to have sterilization procedure with Dr. Chilo Shannon MD documented in this encounter Plan of Treatment Upcoming Encounters Date Type Department Care Team (Late st Contact Info) Description 06/08/2024 13:30 EDT Office Visit [facility] [address] [phone] Michelle Shannon MD [address] [place] [phone] documented as of this encounter Visit Diagnoses Diagnosis Hoarseness- Primary Dysphonia MDD (major depressive disorder), recurrent episode, moderate ([facility]) Major depressive disorder, recurrent episode, moderate Narcolepsy without cataplexy REM sleep behavior disorder documented in this encounter Discontinued Medications Medication Sig Discontinue Reason Start Date End Da te dextroamphetamine-amphet amine (ADDERALL XR) 10 mg XR capsule Take one capsule at 4pm Reorder 05/05/2020 05/09/2020 documented as of this encounter Care Teams Transportation Aide Relationship Specialty Start Date End Date Michelle Shannon MD [address] [place] [phone] PCP - General 09/08/11 documented as of this encounter
--- OUTSIDE RECORDS SUMMARY | 2024-04-28 15:55 | XMS_ITS | Encounter Summary ---
Author Organization [facility] Address [address] [place] [address] Care Team Providers Care Financial Institution Branch Manager Name Role Phone Michelle Shannon MD Primary Care Provider + Reason for Visit * Reason Onset Date Comments Medications Refill 11/09/2019 Encounter Details Date Type Department Care Team (Late st Contact Info) Description 11/09/2019 Refill [facility] [address] [place] [address] [phone] Taryn Andrews RN [address] [place] [phone] Medications Refill Social History Tobacco Use Types [...] Dispensed Refills Start Date End Da te pantoprazole (PROTONIX) 40 mg tablet Take 1 Tab by mouth daily. 90 Tab 1 11/09/2019 02/22/2020 documented in this encounter Miscellaneous Notes * Telephone Encounter - Taryn Andrews RN - 11/09/2019 1509 EST Received request for medication refill. According to provider documentation, this refill is appropriate. Verified name of medication, dose, administration route, quantity and #refills. Confirmed preferred pharmacy. Refill ordered. Requested Prescriptions Signed Prescriptions Disp Refills ??? pantoprazole (PROTONIX) 40 mg tablet 90 Tab 1 Sig: Take 1 Tab by mouth daily. Authorizing Provider: MICHELLE SHANNON Ordering User: TARYN ANDREWS RN documented in this encounter Plan of Treatment Upcoming Encounters Date Type Department Care Team (Late st Contact Info) Description 06/08/2024 13:30 EDT Office Visit [facility] [address] [facility] [address] [place], [place] [phone] Michelle Shannon MD [address] [place] [phone] documented as of this encounter Visit Diagnoses Not on filedocumented in this encounter Discontinued Medications Medication Sig Discontinue Reason Start Date End Da te pantoprazole (PROTONIX) 40 mg tablet Take 1 Tab by mouth daily. Reorder 07/30/2019 11/09/2019 documented as of this encounter Care Teams Financial Institution Branch Manager Relationship Specialty Start Date End Date Michelle Shannon MD [address] [place] [address] [phone] PCP - General 09/08/11 documented as of this encounter
--- OUTSIDE RECORDS SUMMARY | 2024-04-28 15:55 | XMS_ITS | Encounter Summary ---
Author Organization [facility] Address [address] [place] [address] Care Team Providers Care Associate Sales Name Role Phone Michelle Shannon MD Primary Care Provider + Reason for Visit * Reason Onset Date Comments Medications Refill 05/05/2020 Encounter Details Date Type Department Care Team (Late st Contact Info) Description 05/05/2020 Refill [facility] [address] [place] [address] Michelle Shannon MD [address] [place] [phone] Medications Refill Social History Tobacco Use [...] End Da te dextroamphetamine-ampheta mine (ADDERALL XR) 10 mg XR capsule Take one capsule at 4pm 30 Cap 05/05/2020 05/09/2020 dextroamphetamine-ampheta mine (ADDERALL XR) 20 mg XR capsule Take 1 Cap by mouth 2 times daily. Daily Max: 2 Caps 60 Cap 05/05/2020 06/09/2020 documented in this encounter Miscellaneous Notes * Telephone Encounter - Michelle Adkins - 05/05/2020 1636 EDT Pt called and left VM requesting refill of dextroamphetamine-amphetamine (ADDERALL XR) 20 mg XR capsule Take 1 cam po bid dextroamphetamine-amphetamine (ADDERALL XR) 10 mg XR capsule Take 1 cap po at 4pm. Sent to [facility] Michelle Adkins documented in this encounter Plan of Treatment Upcoming Encounters Date Type Department Care Team (Late st Contact Info) Description 06/08/2024 13:30 EDT Office Visit [facility] [address] [place] [address] Michelle Shannon MD [address] [place] [address] [phone] documented as of this encounter Visit Diagnoses Not on filedocumented in this encounter Discontinued Medications Medication Sig Discontinue Reason Start Date End Da te dextroamphetamine-amphet amine (ADDERALL XR) 20 mg XR capsule Take 1 Cap by mouth 2 times daily. Daily Max: 2 Caps Reorder 04/01/2020 05/05/2020 dextroamphetamine-amphet amine (ADDERALL XR) 10 mg XR capsule Take one capsule at 4pm Reorder 04/01/2020 05/05/2020 documented as of this encounter Care Teams Associate Sales Relationship Specialty Start Date End Date Michelle Shannon MD [address] [place] [address] [phone] PCP - General 09/08/11 documented as of this encounter
--- OUTSIDE RECORDS SUMMARY | 2024-04-28 15:55 | XMS_ITS | Encounter Summary ---
Author Organization [facility] Address [address] [place] [address] Care Team Providers Care Power Generation Equipment Repairer Name Role Phone Michelle Shannon MD Primary Care Provider + Reason for Visit * Reason Onset Date Comments Medication Management 06/23/2020 Encounter Details Date Type Department Care Team (Late st Contact Info) Description 06/23/2020 Telephone [facility] [address] [place] [address] Michelle Shannon MD [address] [place] [phone] Medication Management Social History Tobacco Use [...] Telephone Encounter - Michelle Shannon MD - 06/23/2020 4754 EDT Spoke with Jane. She picked up 56 tabs of 30mg on 06/04, and then another script for 20mg on 06/09. This seems to have been accidental. She was advised to take 20mg tid when the 30s run out and then call for the 30mg bid refill. * Addendum Note - Michelle Shannon MD - 06/23/2020 1315 EDTAddended by: MICHELLE SHANNON on: 06/23/2020 13:15 Modules accepted: Orders * Telephone Encounter - Michelle Adkins - 06/23/2020 0808 EDT Pt called and left VM in Tuesday. She thought that she was supposed to be taking 30mg of her adderall BID and has been taking that amount. Her Rx was written differently so she wanted to verify what she should be taking? Michelle Adkins documented in this encounter Plan of Treatment Upcoming Encounters Date Type Department Care Team (Late st Contact Info) Description 06/08/2024 13:30 EDT Office Visit [facility] [address] [place], [place] [phone] Michelle Shannon MD [address] [place] [phone] documented as of this encounter Visit Diagnoses Not on filedocumented in this encounter Discontinued Medications Medication Sig Discontinue Reason Start Date End Da te dextroamphetamine-amphe tamine (ADDERALL XR) 10 mg XR capsule 1 Tab bid in addition to 20mg bid 05/20/2020 06/23/2020 dextroamphetamine-amphe tamine (ADDERALL XR) 20 mg XR capsule Take 1 Cap by mouth 2 times daily. Daily Max: 2 Caps 06/09/2020 06/23/2020 documented as of this encounter Care Teams Power Generation Equipment Repairer Relationship Specialty Start Date End Date Michelle Shannon MD [address] [place] [address] [phone] PCP - General 09/08/11 documented as of this encounter
--- OUTSIDE RECORDS SUMMARY | 2024-04-28 15:55 | XMS_ITS | Encounter Summary ---
Author Organization [facility] Address [address] [place] [address] Care Team Providers Care Face Cleaner Name Role Phone Michelle Shannon MD Primary Care Provider + Encounter Details Date Type Department Care Team (Late st Contact Info) Description 06/13/2020 Orders Only [facility] Sports Medicine Program - [address] [place] [address] Ruslan García MD [address] [place] [phone] Social History Tobacco Use Types Packs/Day Years [...] Info) Description 06/08/2024 13:30 EDT Office Visit [facility] [address] [place] [address] Michelle Shannon MD [address] [place] [phone] documented as of this encounter Visit Diagnoses Not on filedocumented in this encounter Care Teams Face Cleaner Relationship Specialty Start Date End Date Michelle Shannon MD [address] [place] [address] [phone] PCP - General 09/08/11 documented as of this encounter
--- OUTSIDE RECORDS SUMMARY | 2024-04-28 15:55 | XMS_ITS | Encounter Summary ---
Author Organization [facility] Address [address] [place] [address] Care Team Providers Care Care Professionals Name Role Phone Michelle Shannon MD Primary Care Provider + Reason for Visit * Reason Comments Other Encounter Details Date Type Department Care Team (Late st Contact Info) Description 03/31/2020 Refill [facility] [address] [place], [place] [phone] Michelle Shannon MD [address] [place] [phone] Other Social History Tobacco Use Types Packs/Day [...] Dispensed Refills Start Date End Da te fluticasone propionate (FLONASE) 50 mcg/actuation nasal spray SHAKE LIQUID AND USE 2 SPRAYS IN EACH NOSTRIL DAILY 3 Bottle 03/31/2020 02/06/2021 documented in this encounter Plan of Treatment Upcoming Encounters Date Type Department Care Team (Late st Contact Info) Description 06/08/2024 13:30 EDT Office Visit [facility] [address] [place], [place] [phone] Michelle Shannon MD [address] [place] [phone] documented as of this encounter Visit Diagnoses Not on filedocumented in this encounter Discontinued Medications Medication Sig Discontinue Reason Start Date End Da te fluticasone propionate (FLONASE) 50 mcg/actuation nasal spray SHAKE LIQUID AND USE 2 SPRAYS IN EACH NOSTRIL DAILY 03/31/2020 03/31/2020 documented as of this encounter Care Teams Care Professionals Relationship Specialty Start Date End Date Michelle Shannon MD [address] [place] [address] [phone] PCP - General 09/08/11 documented as of this encounter
--- OUTSIDE RECORDS SUMMARY | 2024-04-28 15:55 | XMS_ITS | Encounter Summary ---
Author Organization [facility] Address [address] [place] [address] Care Team Providers Care Grain Wafer Machine Operator Name Role Phone Michelle Shannon MD Primary Care Provider + Reason for Visit * Reason Onset Date Comments Medications Refill 12/23/2019 Encounter Details Date Type Department Care Team (Late st Contact Info) Description 12/23/2019 Refill Benito Crowley MD, [address] [address] Michelle Shannon MD [address] [place] [phone] Medications Refill Social History Tobacco Use [...] bedtime. Daily Max: 1 mg 28 Tab 12/24/2019 01/23/2020 documented in this encounter Miscellaneous Notes * Telephone Encounter - Michelle Shannon MD - 12/24/2019 3844 EDTFrom: Jane Blair Sent: 12/23/2019 18:35 EDT Subject: Medication Renewal Request Jane Blair would like a refill of the following medications: clonazePAM (KLONOPIN) 1 mg tablet [Michelle Shannon MD] Preferred pharmacy: [id number] AT [facility] Medication renewals requested in this message routed separately: fluticasone (FLONASE) 50 mcg/actuation nasal spray [Michelle Shannon MD] topiramate (TOPAMAX) 50 mg tablet [Michelle Shannon MD] ARIPiprazole (ABILIFY) 10 mg tablet [Michelle Shannon MD] dextroamphetamine-amphetamine (ADDERALL XR) 20 mg XR capsule [Michelle Shannon MD] dextroamphetamine-amphetamine (ADDERALL XR) 10 mg XR capsule [Michelle Shannon MD] documented in this encounter Plan of Treatment Upcoming Encounters Date Type Department Care Team (Late st Contact Info) Description 06/08/2024 13:30 EDT Office Visit [facility] [address] [facility] [address] [place], [place] [phone] Michelle Shannon MD [address] [place] [phone] documented as of this encounter Visit Diagnoses Not on filedocumented in this encounter Discontinued Medications Medication Sig Discontinue Reason Start Date End Da te clonazePAM (KLONOPIN) 1 mg tablet Take 1 Tab by mouth at bedtime. Daily Max: 1 mg Reorder 11/14/2019 12/23/2019 documented as of this encounter Care Teams Grain Wafer Machine Operator Relationship Specialty Start Date End Date Michelle Shannon MD [address] [place] [address] [phone] PCP - General 09/08/11 documented as of this encounter
--- OUTSIDE RECORDS SUMMARY | 2024-04-28 15:55 | XMS_ITS | Encounter Summary ---
Author Organization [facility] Address [address] [place] [address] Care Team Providers Care Director Epidemiology Name Role Phone Michelle Shannon MD Primary Care Provider + Reason for Visit * Reason Onset Date Comments Appointment Related 06/12/2020 Encounter Details Date Type Department Care Team (Late st Contact Info) Description 06/12/2020 Telephone [facility] Sports Medicine Program - [address] [phone] Ruslan García MD [address] [place] [phone] Appointment Related Social History Tobacco Use [...] encounter Miscellaneous Notes * Telephone Encounter - Ruslan García MD - 06/13/2020 1147 EDT Hi, This is fine. She may return for the injection. Thanks. Ruslan García M.D. 06/12/2020 11:48 * Telephone Encounter - Harlan Boyle MA - 06/12/2020 6497 EDT Jane LM re: R shoulder. She had a R shoulder injection 4.07.14 and her pain has returned. She is wondering what's next (another injection, etc). I LM for Jane to discuss how long the injection lasted so Dr. García can assess if another injectionis appropriate or if we should see her to re-evaluate her first. documented in this encounter Plan of Treatment Upcoming Encounters Date Type Department Care Team (Late st Contact Info) Description 06/08/2024 13:30 EDT Office Visit [facility] [address] [facility] [address] [place], [place] [phone] Michelle Shannon MD [address] [place] [phone] documented as of this encounter Visit Diagnoses Not on filedocumented in this encounter Care Teams Director Epidemiology Relationship Specialty Start Date End Date Michelle Shannon MD [address] [place] [phone] PCP - General 09/08/11 documented as of this encounter
--- OUTSIDE RECORDS SUMMARY | 2024-04-28 15:55 | XMS_ITS | Encounter Summary ---
Author Organization [facility] Address [address] [place] [address] Care Team Providers Care Automobile Wrecker Name Role Phone Michelle Shannon MD Primary Care Provider + Reason for Visit * Reason Onset Date Comments Medications Refill 02/27/2020 Encounter Details Date Type Department Care Team (Late st Contact Info) Description 02/27/2020 Refill [facility] [address] [place] [address] Michelle Shannon MD [address] [place] [phone] Medications Refill Social History Tobacco Use [...] 10:44 EDT documented as of this encounter Ordered Prescriptions Prescription Sig Dispensed Refills Start Date End Da te dextroamphetamine-ampheta mine (ADDERALL XR) 20 mg XR capsule Take 1 Cap by mouth 2 times daily. Daily Max: 2 Caps 60 Cap 02/27/2020 04/01/2020 dextroamphetamine-ampheta mine (ADDERALL XR) 10 mg XR capsule Take one capsule at 4pm 30 Cap 02/27/2020 04/01/2020 documented in this encounter Miscellaneous Notes * Telephone Encounter - Michelle Adkins - 02/27/2020 1632 EDT pt requested refill of adderall 10 mg XR capsule po bid adderall 20 mg XR capsule To [facility] [place] Michelle Adkins documented in this encounter Plan of Treatment Upcoming Encounters Date Type Department Care Team (Late st Contact Info) Description 06/08/2024 13:30 EDT Office Visit [facility] [address] [facility] [address] [place], [place] [phone] Michelle Shannon MD [address] [place] [phone] documented as of this encounter Visit Diagnoses Not on filedocumented in this encounter Discontinued Medications Medication Sig Discontinue Reason Start Date End Da te dextroamphetamine-amphet amine (ADDERALL XR) 10 mg XR capsule Take one capsule at 4pm Reorder 12/24/2019 02/27/2020 dextroamphetamine-amphet amine (ADDERALL XR) 20 mg XR capsule Take 1 Cap by mouth 2 times daily. Daily Max: 2 Caps Reorder 01/25/2020 02/27/2020 documented as of this encounter Care Teams Automobile Wrecker Relationship Specialty Start Date End Date Michelle Shannon MD [address] [place] [address] [phone] PCP - General 09/08/11 documented as of this encounter
--- OUTSIDE RECORDS SUMMARY | 2024-04-28 15:55 | XMS_ITS | Encounter Summary ---
Author Organization [facility] Address [address] [place] [address] Care Team Providers Care Padding Machine Operator Name Role Phone Michelle Shannon MD Primary Care Provider + Reason for Visit * Reason Onset Date Comments Medications Refill 04/01/2020 Encounter Details Date Type Department Care Team (Late st Contact Info) Description 04/01/2020 Refill Benito Crowley MD, [facility] [address] [place], [place] [phone] Chanel Mac RN Medications Refill Social History [...] End Da te dextroamphetamine-amphetam ine (ADDERALL XR) 20 mg XR capsule Take 1 Cap by mouth 2 times daily. Daily Max: 2 Caps 60 Cap 04/01/2020 05/05/2020 documented in this encounter Miscellaneous Notes * Telephone Encounter - Chanel Mac RN - 04/01/2020 1112 EDT Pt called with request for adderall 20 mg xr q bid .CHANEL MAC RN documented in this encounter Plan of Treatment Upcoming Encounters Date Type Department Care Team (Late st Contact Info) Description 06/08/2024 13:30 EDT Office Visit [facility] [address] [place], [place] [phone] Michelle Shannon MD [address] [place] [address] [phone] documented as of this encounter Visit Diagnoses Not on filedocumented in this encounter Discontinued Medications Medication Sig Discontinue Reason Start Date End Da te dextroamphetamine-ampheta mine (ADDERALL XR) 20 mg XR capsule Take 1 Cap by mouth 2 times daily. Daily Max: 2 Caps Reorder 02/27/2020 04/01/2020 documented as of this encounter Care Teams Padding Machine Operator Relationship Specialty Start Date End Date Michelle Shannon MD [address] [place] [phone] PCP - General 09/08/11 documented as of this encounter
--- OUTSIDE RECORDS SUMMARY | 2024-04-28 15:55 | XMS_ITS | Encounter Summary ---
Author Organization [facility] Address [address] [place] [address] Care Team Providers Care Fighter Pilot Name Role Phone Michelle Shannon MD Primary Care Provider + Encounter Details Date Type Department Care Team (Latest Contact Info) Description 02/22/[address] [facility] Ancillary Services Joyce Solomon, [place] [address] [place], [place] [phone] Abnormal weight gain (Primary Dx); Fatigue, unspecified type; Persistent disorder of initiating or maintaining sleep; Baldness Social History Tobacco Use Types Packs/Day Years [...] Description 06/08/2024 13:30 EDT Office Visit [facility] [address] [facility] [address] [place] [address] Michelle Shannon MD [address] [place] [address] [phone] documented as of this encounter Results * THYROID-STIMULATING IMMUNOGLOBULIN (TSI), SERUM (02/22/2020 11:14 EDT) Thyroid-Stimulati ng Immunoglobin, S <1.0 <=1.3 TSI index 02/26/2020 15:32 EDT [facility] [employer] Comment: Test Performed by: [facility] [place] [address] Photo Producer: Juventino Mckeon M.D. Ph.D.; CLIA# [id number] Blood VENOUS BLOOD / Unknown Venipuncture / Unknown 02/22/2020 11:14 EDT 02/22/2020 11:14 EDT Joyce Solomon ND CHEMISTRY & BLOOD GA S ORDERABLES Performing Organization Address [facility] de Phone Number [address] [address] * T3, REVERSE, SERUM (02/22/2020 11:14 EDT) Pathologist [facility] T3 Reverse 22 10 - 24 ng/dL 02/28/2020 14:20 EDT [facility] Comment: ADDITIONAL INFORMATION This test was developed and its performance characteristics determined by [facility] in a manner consistent with CLIA requirements. This test has not been cleared or approved by the U.S. Food and Drug Administration. Test Performed by: [facility] [address] [place] [address] Photo Producer: Juventino Mckeon M.D. Ph.D.; CLIA# [id number] Blood VENOUS BLOOD / Unknown Venipuncture / Unknown 02/22/2020 11:14 EDT 02/22/2020 11:14 EDT Joyce Solomon ND CHEMISTRY & BLOOD GA S ORDERABLES Performing Organization Address [facility]/ZIP Co de Phone Number [facility] [address] [place] [address] documented in this encounter Visit Diagnoses Diagnosis Abnormal weight gain- Primary Fatigue, unspecified type Persistent disorder of initiating or maintaining sleep Baldness Alopecia, unspecified documented in this encounter Care Teams Fighter Pilot Relationship Specialty Start Date End Date Michelle Shannon MD [address] [place] [address] [phone] PCP - General 09/08/11 documented as of this encounter
--- OUTSIDE RECORDS SUMMARY | 2024-04-28 15:55 | XMS_ITS | Encounter Summary ---
Author Organization [facility] Address [address] [place] [address] Care Team Providers Care Offset Press Operator Apprentice Name Role Phone Michelle Shannon MD Primary Care Provider + Encounter Details Date Type Department Care Team (Late st Contact Info) Description 06/23/2020 Orders Only [facility] [address] [place] [phone] Michelle Shannon MD [address] [place] [phone] Social History Tobacco Use Types Packs/Day Years [...] Max: 2 Caps 56 Cap 06/04/2020 07/18/2020 documented in this encounter Plan of Treatment Upcoming Encounters Date Type Department Care Team (Late st Contact Info) Description 06/08/2024 13:30 EDT Office Visit [facility] [address] [place] [address] Michelle Shannon MD [address] [place] [phone] documented as of this encounter Visit Diagnoses Not on filedocumented in this encounter Discontinued Medications Medication Sig Discontinue Reason Start Date End Da te dextroamphetamine-ampheta mine (ADDERALL XR) 30 mg XR capsule Take 1 Cap by mouth daily. Daily Max: 1 Cap 06/04/2020 06/23/2020 documented as of this encounter Care Teams Offset Press Operator Apprentice Relationship Specialty Start Date End Date Michelle Shannon MD [address] [place] [phone] PCP - General 09/08/11 documented as of this encounter
--- OUTSIDE RECORDS SUMMARY | 2024-04-28 15:55 | XMS_ITS | Encounter Summary ---
Author Organization [facility] Address [address] [place] [address] Care Team Providers Care Engraver Name Role Phone Michelle Shannon MD Primary Care Provider + Reason for Visit * Reason Onset Date Comments Medications Refill 11/14/2019 Encounter Details Date Type Department Care Team (Late st Contact Info) Description 11/14/2019 Refill Benito Crowley MD, [facility] [address] [place], [place] [phone] Chanel Mac RN Medications Refill Social History [...] bedtime. Daily Max: 1 mg 28 Tab 11/14/2019 12/23/2019 documented in this encounter Miscellaneous Notes * Telephone Encounter - Chanel Mac RN - 11/14/2019 0909 EST Pt LMOM for refill on Klonopin 1 mg q HS . Last filled 10/08/2019 #28/0. Last ov with PCP 04/20/19 .CHANEL MAC RN documented in this encounter Plan of Treatment Upcoming Encounters Date Type Department Care Team (Late st Contact Info) Description 06/08/2024 13:30 EDT Office Visit [facility] [address] [place], [place] [phone] Michelle Shannon MD [address] [place] [phone] documented as of this encounter Visit Diagnoses Not on filedocumented in this encounter Discontinued Medications Medication Sig Discontinue Reason Start Date End Da te clonazePAM (KLONOPIN) 1 mg tablet Take 1 Tab by mouth at bedtime. Daily Max: 1 mg Reorder 10/08/2019 11/14/2019 documented as of this encounter Care Teams Engraver Relationship Specialty Start Date End Date Michelle Shannon MD [address] [place] [phone] PCP - General 09/08/11 documented as of this encounter
--- OUTSIDE RECORDS SUMMARY | 2024-04-28 15:55 | XMS_ITS | Encounter Summary ---
Author Organization [facility] Address [address] [place] [address] Care Team Providers Care Stripper Color Name Role Phone Michelle Shannon MD Primary Care Provider + Encounter Details Date Type Department Care Team (Latest Contact Info) Description 06/19/2020 14:45 EDT Ancillary Procedure [facility] [place] [address] Chronic right shoulder pain Social History Tobacco Use Types Packs/Day [...] Info) Description 06/08/2024 13:30 EDT Office Visit [facility] [address] [place] [address] Michelle Shannon MD [address] [place] [phone] documented as of this encounter Procedures Procedure Name Priority Date/Time Associated Diagnosis Comments POC MSK US SHOULDER Routine 06/19/2020 1 5:47 EDT Chronic right shoulder pain documented in this encounter Results * POC MSK US SHOULDER (06/19/2020 15:47 EDT) Narrative [facility] POINT OF CARE - 06/19/2020 15:47 EDT This is a non-reportable exam. Ruslan García MD IMG US POC ORDERAB LES [facility] POINT OF CARE documented in this encounter Visit Diagnoses Diagnosis Chronic right shoulder pain Pain in joint, shoulder region documented in this encounter Care Teams Stripper Color Relationship Specialty Start Date End Date Michelle Shannon MD [address] [place] [phone] PCP - General 09/08/11 documented as of this encounter
--- OUTSIDE RECORDS SUMMARY | 2024-04-28 15:55 | XMS_ITS | Encounter Summary ---
Author Organization [facility] Address [address] [place] [address] Care Team Providers Care Mathematics Technician Name Role Phone Michelle Shannon MD Primary Care Provider + Reason for Visit * (Routine) - Receiving Office to Obtain Authorization Specialty Diagnoses / Procedures Referred By Thelma long Referred To Contact Procedures MA BREAST OUTSIDE IMAGES Unknown, Provider, Referral ID Status Reason Start Date Expiration Date Visits Requested Visits Authorized [id number] Receiving Office to Obtain Authorization 11/18/2020 1 1 Encounter Details Date Type Department Care Team (Latest Contact Info) Description 05/19/2020 - 05/19/2020 23:59 EDT Hospital Encounter [facility] Secondary Reads [place] Discharge Disposition: Home or Self Care Social [...] 03/26/2020 09/30/2020 clonazePAM (KLONOPIN) 1 mg tablet Take 1 Tab by mouth at bedtime. Daily Max: 1 mg 28 Tab 03/26/2020 05/30/2020 dextroamphetamine-amph etamine (ADDERALL XR) 10 mg XR capsule 1 Tab bid in addition to 20mg bid 30 Cap 05/20/2020 06/23/2020 dextroamphetamine-amph etamine (ADDERALL XR) 20 mg XR capsule Take 1 Cap by mouth 2 times daily. Daily Max: 2 Caps 60 Cap 05/05/2020 06/09/2020 dextroamphetamine-amph etamine (ADDERALL XR) 30 mg XR capsule Take 1 Cap by mouth daily. Daily Max: 1 Cap 56 Cap 06/04/2020 06/23/2020 DULoxetine (CYMBALTA) 60 mg capsule Take 1 Cap by mouth daily. 90 Cap 1 02/07/2020 09/12/2020 ferrous gluconate (FERGON) 324 mg (38 mg iron) tablet Take 1 Tab by mouth daily with breakfast. 100 Tab 02/22/2020 06/17/2020 fluticasone propionate (FLONASE) 50 mcg/actuation nasal spray [...] daily. Daily Max: 2 mg 60 Tab 12/26/2019 06/17/2020 melatonin 10 mg capsule Take by mouth. 05/06/2021 naratriptan (AMERGE) 2.5 mg tabletIndications:migr stefan Take as directed. Indications: MIGRAINE 12 Tab 11 03/24/2012 02/06/2021 pantoprazole (PROTONIX) 40 mg tablet Take 1 Tab by mouth daily. 90 Tab 1 02/22/2020 06/30/2020 topiramate (TOPAMAX) 50 mg tablet Take 1 Tab by mouth 2 times daily. 180 Tab 1 12/24/2019 06/30/2020 documented as of this encounter Discharge Disposition Disposition Code Departure Means Destination Home or Self Care documented in this encounter Plan of Treatment Upcoming Encounters Date Type Department Care Team (Late st Contact Info) Description 06/08/2024 13:30 EDT Office Visit [facility] [address] [facility] [address] [place], [place] [phone] Michelle Shannon MD [address] [place] [phone] documented as of this encounter Procedures Procedure Name Priority Date/Time Associated Diagnosis Comments MA OUTSIDE IMAGES BREAST OTHER Routine 11/18/2020 15:03 EST documented in this encounter Results * MA BREAST OUTSIDE IMAGES (11/18/2020 15:03 EST) Narrative 11/18/2020 15:03 EST This is a non-reportable exam. Provider Unknown MD NYE OTHER IMAGING OR DERABLES documented in this encounter Visit Diagnoses Not on filedocumented in this encounter Care Teams Mathematics Technician Relationship Specialty Start Date End Date Michelle Shannon MD [address] [place] [address] [phone] PCP - General 09/08/11 documented as of this encounter
--- OUTSIDE RECORDS SUMMARY | 2024-04-28 15:55 | XMS_ITS | Encounter Summary ---
Author Organization [facility] Address [address] [place] [address] Care Team Providers Care Mechanical Door Repairer Name Role Phone Michelle Shannon MD Primary Care Provider + Reason for Visit * Reason Onset Date Comments Medications Refill 06/09/2020 Encounter Details Date Type Department Care Team (Late st Contact Info) Description 06/09/2020 Refill [facility] [address] [place] [phone] Michelle Shannon MD [address] [place] [phone] Medications Refill Social History Tobacco Use [...] daily. Daily Max: 2 Caps 60 Cap 06/09/2020 06/23/2020 documented in this encounter Miscellaneous Notes * Telephone Encounter - Michelle Adkins - 06/09/2020 1422 EDT Pt requested refill of dextroamphetamine-amphetamine (ADDERALL XR) 20 mg XR capsule Take 1 cap po bid Sent to [facility]. Michelle Adkins documented in this encounter Plan of Treatment Upcoming Encounters Date Type Department Care Team (Late st Contact Info) Description 06/08/2024 13:30 EDT Office Visit [facility] [address] [place], [place] [phone] Michelle Shannon MD [address] [place] [phone] documented as of this encounter Visit Diagnoses Not on filedocumented in this encounter Discontinued Medications Medication Sig Discontinue Reason Start Date End Da te dextroamphetamine-ampheta mine (ADDERALL XR) 20 mg XR capsule Take 1 Cap by mouth 2 times daily. Daily Max: 2 Caps Reorder 05/05/2020 06/09/2020 documented as of this encounter Care Teams Mechanical Door Repairer Relationship Specialty Start Date End Date Michelle Shannon MD [address] [place] [phone] PCP - General 09/08/11 documented as of this encounter
--- OUTSIDE RECORDS SUMMARY | 2024-04-28 15:55 | XMS_ITS | Encounter Summary ---
Author Organization [facility] Address [address] [place] [address] Care Team Providers Care Miller Head Assistant Wet Process Name Role Phone Michelle Shannon MD Primary Care Provider + Reason for Visit * Reason Onset Date Comments Medications Refill 02/22/2020 Encounter Details Date Type Department Care Team (Late st Contact Info) Description 02/22/2020 Refill [facility] [address] [place] [phone] Michelle Shannon MD [address] [place] [phone] Medications Refill Social History Tobacco Use [...] mouth daily. 90 Tab 1 02/22/2020 06/30/2020 documented in this encounter Miscellaneous Notes * Telephone Encounter - Taryn Salazar RN - 02/22/2020 1615 EDTFrom: Jane Blair Sent: 02/22/2020 14:08 EDT Subject: Medication Renewal Request Jane Blair would like a refill of the following medications: ferrous gluconate (FERGON) 324 mg (38 mg iron) tablet [Michelle Shannon MD] pantoprazole (PROTONIX) 40 mg tablet [Michelle Shannon MD] Preferred pharmacy: [id number] [place] [address] [address] [facility] Medication renewals requested in this message routed separately: clonazePAM (KLONOPIN) 1 mg tablet [Michelle Shannon MD] documented in this encounter Plan of Treatment Upcoming Encounters Date Type Department Care Team ([facility] st Contact Info) Description 06/08/2024 13:30 EDT Office Visit [facility] [address] [facility] [address] [place] [address] Michelle Shannon MD [address] [place] [phone] documented as of this encounter Visit Diagnoses Not on filedocumented in this encounter Discontinued Medications Medication Sig Discontinue Reason Start Date End Da te pantoprazole (PROTONIX) 40 mg tablet Take 1 Tab by mouth daily. Reorder 11/09/2019 02/22/2020 documented as of this encounter Care Teams Miller Head Assistant Wet Process Relationship Specialty Start Date End Date Michelle Shannon MD [address] [place] [phone] PCP - General 09/08/11 documented as of this encounter
--- OUTSIDE RECORDS SUMMARY | 2024-04-28 15:55 | XMS_ITS | Encounter Summary ---
Author Organization [facility] Address [address] [place] [address] Care Team Providers Care Cider Press Operator Name Role Phone Michelle Shannon MD Primary Care Provider + Encounter Details Date Type Department Care Team (Late st Contact Info) Description 12/26/2019 15:00 EDT Telemedicine [facility] [address] [place] [phone] Michelle Shannon MD [address] [place] [address] [phone] Anxiety (Primary Dx) Social History Tobacco Use Types [...] Max: 2 mg 60 Tab 12/26/2019 06/17/2020 documented in this encounter Progress Notes * Michelle Shannon MD - 12/26/2019 1500 EDT Subjective: Patient ID: Jane Blair is an 44 y.o. female. No chief complaint on file. TELEMEDICINE VIDEO VISIT The patient contacted the office today due to an acute medical issue. Due to coronavirus precautions, a tele-health visit was offered via video-conferencing. The concept of ???Telemedicine?? has been described to the patient. Patient has been informed of the anticipated benefits and possible risks. Patient consents for the use of telemedicine in his/her medical care and authorizes the transmission of any relevant medical information to providers and their staff involved in patient???s medical or mental health care. He/she is aware this will be billed to insurance. The location of the patient : Home The location of the provider: medical office FRANCES Lara reports a sudden increase in anxiety and panic symptoms over the last couple weeks due to the coronavirus pandemic. She states she went to [employer] yesterday and when she saw all the empty shelves of food and could not find cat food, she started panicking and crying uncontrollably. A few nightsago her mind was racing and she wanted to take an extra clonazepam. She states she is sleeping okayand trying to keep a regular schedule by waking up at 9:00 each day. She has a history of hypersomnia in the past. 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 She has taken Xanax intermittently in the past for panic symptoms, and wonders if she can try this again. Patient Active Problem List Diagnosis ??? Narcolepsy [...] mouth at bedtime. 90 Tab 2 ??? gifszua-mjegpcpcnazmn-lwuhfoaw (EXCEDRIN MIGRAINE) 250-250-65 mg per tablet Take 1 Tab by mouthevery 6 hours as needed. Indications: MIGRAINE ??? Azelaic Acid (FINACEA) 15 % gel Apply topically 2 times daily. ??? cholecalciferol, Vitamin D3, 1,000 unit tablet Take 1,000 Units by mouth daily. ??? clonazePAM (KLONOPIN) 1 mg tablet Take 1 Tab by mouth at bedtime. Daily Max: 1 mg 28 Tab 0 ??? dextroamphetamine-amphetamine (ADDERALL XR) 10 mg XR capsule Take one capsule at 4pm 30 Cap 0 ??? dextroamphetamine-amphetamine (ADDERALL XR) 20 mg [...] fluticasone propionate (FLONASE) 50 mcg/actuation nasal spray Instill 2 Sprays into both nostrils daily. 16 g 0 ??? IBUPROFEN (ADVIL ORAL) Take by mouth daily as needed. ??? loratadine (CLARITIN) 10 mg tablet Take 1 Tab by mouth daily. 100 Tab 1 ??? melatonin 10 mg capsule Take by [...] this visit. Physical Exam Constitutional: She appears well-nourished. No distress. Skin: Evidence of skin picking on face Psychiatric: Her mood appears anxious. Her speech is rapid and/or pressured. She is not agitated. She does not exhibit a depressed mood. Pt is mildly forgetful. Assessment: Plan: Diagnoses and all orders for this visit: Anxiety Other orders - LORazepam (ATIVAN) 1 mg tablet; Take 1 Tab by mouth 2 times daily. Daily Max: 2 mg Major depressive disorder, now with increasing symptoms of panic and anxiety due to situational stressors. She also has narcolepsy and REM sleep disorder for which she takes clonazepam at bedtime andAdderall Continue duloxetine 60mg and Abilify 10mg at hs Melatonin at hs Continue clonazepam 1 mg at at bedtime Consider reducing Adderall in case this might be worsening anxiety. Currently taking Adderall 20mg bid and the 10mg in the evening prn Add lorazepam 1 mg p.o. daily as needed. She was warned of the potential for habituation and tolerance and is aware not to take this on a daily basis. If her anxiety becomes more long-term, will consider increase in Abilify by an extra 5 mg either daily or as needed She is working with her counselor weekly through telehealth visits Transition to a new therapist at [facility] is on hold until coronavirus precautions are lifted.. Continue working with RANJIT Bonilla twice a week Try to get out walking once a day Narcolepsy and REM sleep disorder- stable Continue Clonazepam 1mg at night I spent 15 minutes in consultation with Jane Shannon MD documented in this encounter Plan of Treatment Upcoming Encounters Date Type Department Care Team (Late st Contact Info) Description 06/08/2024 13:30 EDT Office Visit [facility] [address] [place], [place] [phone] Michelle Shannon MD [address] [place] [phone] documented as of this encounter Visit Diagnoses Diagnosis Anxiety- Primary Anxiety state, unspecified documented in this encounter Care Teams Cider Press Operator Relationship Specialty Start Date End Date Michelle Shannon MD [address] [place] [phone] PCP - General 09/08/11 documented as of this encounter
--- OUTSIDE RECORDS SUMMARY | 2024-04-28 15:55 | XMS_ITS | Encounter Summary ---
Author Organization [facility] Address [address] [place] [address] Care Team Providers Care Induction Machine Setter Name Role Phone Michelle Shannon MD Primary Care Provider + Encounter Details Date Type Department Care Team (Late st Contact Info) Description 02/22/2020 10:[address] [facility] Laboratory Services - [facility] [address] [place] [address] Stream Control Officer, [facility] Lab Abnormal weight gain; Fatigue, unspecified type; Persistent disorder of initiating [...] Encounters Date Type Department Care Team (Late Contact Info) Description 06/08/2024 13:30 EDT Office Visit [facility] [address] [place], [place] [phone] Michelle Shannon MD [address] [place] [phone] documented as of this encounter Procedures Procedure Name Priority Date/Time Associated Diagnosis Comments THYROID-STIMULATING IMMUNOGLOBULIN (TSI), SERUM Routine 02/22/2020 11:14 EDT Abnormal weight gain Fatigue, unspecified type Persistent disorder of initiating or maintaining sleep Baldness VITAMIN D (25,OH) Routine 02/22/2020 11: 14 EDT Abnormal weight gain Fatigue, unspecified type Persistent disorder of initiating or maintaining sleep Baldness COMPLETE BLOOD COUNT AND DIFFERENTIAL Routine 02/22/2020 11:14 EDT Abnormal weight gain Fatigue, unspecified type Persistent disorder of initiating or maintaining sleep Baldness T3, REVERSE, SERUM Routine 02/22/2020 11 :14 EDT Abnormal weight gain Fatigue, unspecified type Persistent disorder of initiating or maintaining sleep Baldness T3 FREE Routine 02/22/2020 11:14 EDT Abnormal weight gain Fatigue, unspecified type Persistent disorder of initiating or maintaining sleep Baldness TSH Routine 02/22/2020 11:14 EDT Abnormal weight gain Fatigue, unspecified type Persistent disorder of initiating or maintaining sleep Baldness THYROID ANTIBODIES Routine 02/22/2020 11 :14 EDT Abnormal weight gain Fatigue, unspecified type Persistent disorder of initiating or maintaining sleep Baldness T4 FREE Routine 02/22/2020 11:14 EDT Abnormal weight gain Fatigue, unspecified type Persistent disorder of initiating or maintaining sleep Baldness MAGNESIUM Routine 02/22/2020 11:14 EDT Abnormal weight gain Fatigue, unspecified type Persistent disorder of initiating or maintaining sleep Baldness IRON Routine 02/22/2020 11:14 EDT Abnormal weight gain Fatigue, unspecified type Persistent disorder of initiating or maintaining sleep Baldness HEMOGLOBIN A1C Routine 02/22/2020 11:14 EDT Abnormal weight gain Fatigue, unspecified type Persistent disorder of initiating or maintaining sleep Baldness FERRITIN Routine 02/22/2020 11:14 EDT Abnormal weight gain Fatigue, unspecified type Persistent disorder of initiating or maintaining sleep Baldness VITAMIN B12 Routine 02/22/2020 11:14 EDT Abnormal weight gain Fatigue, unspecified type Persistent disorder of initiating or maintaining sleep Baldness LIPID PROFILE (INCLUDES CHOLESTEROL, TRIGLYCERIDES, HDL, LDL) Routine 02/22/2020 11:14 EDT Abnormal weight gain Fatigue, unspecified type Persistent disorder of initiating or maintaining sleep Baldness COMPREHENSIVE METABOLIC PANEL (CMP) Routine 02/22/2020 11:14 EDT Abnormal weight gain Fatigue, unspecified type Persistent disorder of initiating or maintaining sleep Baldness documented in this encounter Results * THYROID-STIMULATING IMMUNOGLOBULIN (TSI), SERUM (02/22/2020 11:14 EDT) Thyroid-Stimulati ng Immunoglobin, S <1.0 <=1.3 TSI index 02/26/2020 15:[address] [facility] Comment: Test Performed by: [address] [address] Mender Hand: Juventino Mckeon M.D. Ph.D.; CLIA# [id number] Blood VENOUS BLOOD / Unknown Venipuncture / Unknown 02/22/2020 11:14 EDT 02/22/2020 11:14 EDT Joyce Solomon ND CHEMISTRY & BLOOD GA S ORDERABLES [address] [address] * T3, REVERSE, SERUM (02/22/2020 11:14 EDT) T3 Reverse 22 10 - 24 ng/dL 02/28/2020 14:[address] [facility] Comment: ADDITIONAL INFORMATION This test was developed and its performance characteristics determined by [facility] in a manner consistent with CLIA requirements. This test has not been cleared or approved by the U.S. Food and Drug Administration. Test Performed by: [facility] - [facility] [address] [place] [address] Mender Hand: Juventino Mckeon M.D. Ph.D.; CLIA# [id number] Blood VENOUS BLOOD / Unknown Venipuncture / Unknown 02/22/2020 11:14 EDT 02/22/2020 11:14 EDT Joyce Solomon ND CHEMISTRY & BLOOD GA S ORDERABLES Performing Organization Address [facility] Co de Phone Number [facility] [address] [place] [address] * TSH (02/22/2020 11:14 EDT) TSH 3.08 0.47 - 4.68 uIU/mL 02/22/2020 13:17 EDT [facility] Blood VENOUS BLOOD / Unknown Venipuncture / Unknown 02/22/2020 11:14 EDT 02/22/2020 11:14 EDT Narrative [facility] - 02/22/2020 13:17 EDT The results of this assay can be falsely lowered due to the consumption of Biotin. Joyce Solomon ND CHEMISTRY & BLOOD GA S ORDERABLES Performing Organization Address City/[facility]/ZIP Co de Phone Number [facility] [address] [place] [address] * T3 FREE (02/22/2020 11:14 EDT) T3, Free 4.1 2.8 - 5.3 pg/mL 02/22/2020 13:02 EDT [facility] Blood VENOUS BLOOD / Unknown Venipuncture / Unknown 02/22/2020 11:14 EDT 02/22/2020 11:14 EDT Joyce Solomon ND CHEMISTRY & BLOOD GA S ORDERABLES Performing Organization Address City/[facility]/ZIP Co de Phone Number [facility] [address] [place] [address] * (ABNORMAL) COMPLETE BLOOD COUNT AND DIFFERENTIAL (02/22/2020 11:14 EDT) WBC 7.53 4.00 - 12.40 K/cmm 02/22/2020 12:21 [facility] RBC 3.99 3.86 - 5.04 M/cmm 02/22/2020 12:21 [facility] Hemoglobin 13.1 11.6 - 15.2 gm/dL 02/22/2020 12:21 [facility] HCT 39.6 34.9 - 44.4 % 02/22/2020 12:21 [facility] MCV 99(H) 81 - 98 fl 02/22/2020 12:21 [facility] MCH 32.8 26.7 - 33.3 pg 02/22/2020 12:21 [facility] MCHC 33.1 32.1 - 35.9 gm/dL 02/22/2020 12:21 [facility] RDW-CV 13.0 <14.7 % 02/22/2020 12:21 [facility] RDW-SD 47.3 <50.4 fl 02/22/2020 12:21 [facility] PLT 367 141 - 377 K/cmm 02/22/2020 12:21 [facility] MPV 10.0 9.5 - 12.7 fl 02/22/2020 12:21 [facility] % Neutrophils 53.2 % 02/22/2020 12:21 [facility] % Lymphocytes 35.6 % 02/22/2020 12:21 [facility] % Monocytes 8.6 % 02/22/2020 12:21 [facility] % Eosinophils 1.3 % 02/22/2020 12:21 [facility] % Basophils 0.4 % 02/22/2020 12:21 [facility] % Immature Grans 0.9 % 02/22/20 20 12:21 [facility] Absolute Neutrophils 4.00 2.20 - 8.85 K/cmm 02/22/2020 12:21 [facility] Absolute Lymphocytes 2.68 1.09 - 3.30 K/cm 02/22/2020 12:21 [facility] Absolute Monocytes 0.65 0.10 - 0.80 K/cm 02/22/2020 12:21 [facility] Absolute Eosinophils 0.10 0.03 - 0.61 K/cm 02/22/2020 12:21 [facility] ABS Basophils 0.03 0.01 - 0.11 K/cm 02/22/2020 12:21 [facility] Absolute Immature Grans 0.07(H) 0.00 - 0.06 K/cm 02/22/2020 12:21 [facility] Type of Differential: Auto 02/22/2020 12:21 [facility] Blood VENOUS BLOOD / Unknown Venipuncture / Unknown 02/22/2020 11:14 EDT 02/22/2020 11:14 EDT Joyce Solomon ND PACKAGES & DNA PROBE ORDERABLES [facility] [address] [place] [address] * VITAMIN D (25,OH) (02/22/2020 11:14 EDT) 25OH Vitamin D Tot 30.2 30.0 - 100.0 ng/mL 02/22/2020 14:01 [facility] Comment: Vitamin D 25,OH Interpretive Ranges: Deficiency: ??<10.0 ng/mL Insufficiency: ??10.0 - 30.0 ng/mL Sufficiency: ??30.0 - 100.0 ng/mL Toxicity: ??>100.0 ng/mL Blood VENOUS BLOOD / Unknown Venipuncture / Unknown 02/22/2020 11:14 EDT 02/22/2020 11:14 EDT Joyce Solomon ND CHEMISTRY & BLOOD GA S ORDERABLES Performing Organization Address [facility] Co de Phone Number [facility] [address] [place] [address] * VITAMIN B12 (02/22/2020 11:14 EDT) Vitamin B12 489 211 - 911 pg/mL 02/22/2020 14:28 EDT [facility] Blood VENOUS BLOOD / Unknown Venipuncture / Unknown 02/22/2020 11:14 EDT 02/22/2020 11:14 EDT Joyce Solomon ND CHEMISTRY & BLOOD GA S ORDERABLES Performing Organization Address [facility] de Phone Number [facility] [address] [place] [address] * THYROID ANTIBODIES (02/22/2020 11:14 EDT) Anti-Thyroglobulin 15 <=60 U/mL 2019 14:28 EDT [facility] Thyroperoxidase Ab 29 <=60 U/mL 2019 14:28 EDT [facility] Blood VENOUS BLOOD / Unknown Venipuncture / Unknown 02/22/2020 11:14 EDT 02/22/2020 11:14 EDT Joyce Solomon ND CHEMISTRY & BLOOD GA S ORDERABLES Performing Organization Address [facility] de Phone Number [facility] [address] [place] [address] * T4 FREE (02/22/2020 11:14 EDT) T4, Free 1.0 0.8 - 2.2 ng/dL 02/22/2020 13:02 EDT [facility] Blood VENOUS BLOOD / Unknown Venipuncture / Unknown 02/22/2020 11:14 EDT 02/22/2020 11:14 EDT Joyce Solomon ND CHEMISTRY & BLOOD GA S ORDERABLES Performing Organization Address City/[facility]/ZIP Co de Phone Number [facility] [address] [place] [address] * MAGNESIUM (02/22/2020 11:14 EDT) Magnesium 2.1 1.7 - 2.8 mg/dL 02/22/2020 12:44 EDT [facility] Blood VENOUS BLOOD / Unknown Venipuncture / Unknown 02/22/2020 11:14 EDT 02/22/2020 11:14 EDT Joyce Solomon ND CHEMISTRY & BLOOD GA S ORDERABLES Performing Organization Address [facility]/ZIP Co de Phone Number [facility] [address] [place] [address] * IRON (02/22/2020 11:14 EDT) Iron 141 37 - 170 ug/dL 02/22/2020 12:44 EDT [facility] Blood VENOUS BLOOD / Unknown Venipuncture / Unknown 02/22/2020 11:14 EDT 02/22/2020 11:14 EDT Joyce Solomon ND CHEMISTRY & BLOOD GA S ORDERABLES Performing Organization Address [facility] Co de Phone Number [facility] [address] [place] [address] * HEMOGLOBIN A1C (02/22/2020 11:14 EDT) Hemoglobin A1c 5.3 <5.7 % 02/22/2020 15:15 EDT [facility] Comment: Glycemic Status References: Normal: ??<5.7% Pre-Diabetes: ??5.7% - 6.4% Diagnostic of Diabetes: ??> or = 6.5% (if confirmed) Goals for glycemic control in diabetics (ADA 2017): <7.0% target for non adults with diabetes. <7.5% target for children and adolescents with Type I Diabetes. More or less stringent targets may be appropriate for individual patients. Est Avg Glucose 105 mg/dL 0 15:15 EDT [facility] Comment: The eAG represents the A1c result expressed as average glucose in mg/dL. Blood VENOUS BLOOD / Unknown Venipuncture / Unknown 02/22/2020 11:14 EDT 02/22/2020 11:14 EDT Joyce Solomon ND CHEMISTRY & BLOOD GA S ORDERABLES Performing Organization Address [facility] Co de Phone Number [facility] [address] [place] [address] * FERRITIN (02/22/2020 11:14 EDT) Ferritin 45 10 - 291 ng/mL 02/22/2020 14:28 EDT [facility] Blood VENOUS BLOOD / Unknown Venipuncture / Unknown 02/22/2020 11:14 EDT 02/22/2020 11:14 EDT Joyce Solomon ND CHEMISTRY & BLOOD GA S ORDERABLES Performing Organization Address [facility] Co de Phone Number [facility] [address] [place] [address] * LIPID PROFILE (INCLUDES CHOLESTEROL, TRIGLYCERIDES, HDL, LDL) (02/22/2020 11:14 EDT) Cholesterol 192 See Note mg/dL 02/22/2020 12:44 EDT [facility] Comment: Acceptable: ?<200 mg/dL Borderline High: 200-239 mg/dL High: ?> or = 240 mg/dL HDL 38 See Note mg/dL 02/22/2020 12:44 EDT [facility] Comment: Low: ? <40 mg/dL Normal: ??40-60 mg/dL High: ?>60 mg/dL LDL, Calculated 114 See Note mg/dL 02/22/2020 12:44 EDT [facility] Comment: Optimal: ? <100 mg/dL Near Optimal: ?100-129 mg/dL Borderline High: 130-159 mg/dL High: ?160-189 mg/dL Very High: ? > or = 190 mg/dL Triglyceride 199 See Note mg/dL 02/22/2020 12:44 EDT [facility] Comment: Normal: ? <150 mg/dL Borderline High: ??150 - 199 mg/dL High: ? 200 - 499 mg/dL Very High: ?> or = 500 mg/dL Chol/HDL Ratio 5.1 See Note 02/22/2020 12:44 [facility] Comment: No reference range has been established for CHOL/HDL ratio. Non HDL Cholesterol 154 See Note mg/dL 02/22/2020 12:44 EDT [facility] Comment: Desirable: ?<130 mg/dL Borderline High: ??130-159 mg/dL High: ? 160-189 mg/dL Very High: ?> or = 190 mg/dL Blood VENOUS BLOOD / Unknown Venipuncture / Unknown 02/22/2020 11:14 EDT 02/22/2020 11:14 EDT Joyce Solomon ND CHEMISTRY & BLOOD GA S ORDERABLES [facility] [address] [place] [address] * (ABNORMAL) COMPREHENSIVE METABOLIC PANEL (CMP) (02/22/2020 11:14 EDT) Sodium 136 136 - 145 mEq/L 02/22/2020 12:44 EDT [facility] Potassium 4.3 3.5 - 5.0 mEq/L 02/22/2020 12:44 EDT [facility] Chloride 106 96 - 110 mEq/L 02/22/2020 12:44 [facility] CO2 Total 20(L) 22 - 32 mEq/L 02/22/2020 12:44 [facility] Glucose 86 70 - 100 mg/dL 02/22/2020 12:44 [facility] BUN 18 10 - 26 mg/dL 02/22/2020 12:44 [facility] Creatinine 0.86 0.52 - 1.04 mg/dL 02/22/2020 12:44 [facility] eGFR 82 >60 mL/min/1.7 3m2 02/22/2020 12:44 [facility] Comment:eGFR calculated chichi wall CKD-EPI equation for non- Americans. Multiply eGFR by 1.16 for patients. Total Protein 7.0 6.3 - 8.2 g/dL 02/22/2020 12:44 [facility] Albumin 4.1 3.4 - 4.9 g/dL 02/22/2020 12:44 [facility] Alkaline Phosphatase 72 38 - 126 U/L 02/22/2020 12:44 [facility] AST 19 15 - 46 U/L 02/22/2020 12:44 [facility] ALT 15 <35 U/L 02/22/2020 12:44 [facility] Bilirubin, Total 0.8 <1.4 mg/dL 02/22/20 20 12:44 [facility] Calcium 9.1 8.5 - 10.5 mg/dL 02/22/2020 12:44 [facility] Calculated Calcium 9.0 8.5 - 10.5 mg/dL 02/22/2020 12:44 [facility] Blood VENOUS BLOOD / Unknown Venipuncture / Unknown 02/22/2020 11:14 EDT 02/22/2020 11:14 EDT Joyce Solomon ND CHEMISTRY & BLOOD GA S ORDERABLES [facility] [address] [place] [address] documented in this encounter Visit Diagnoses Diagnosis Abnormal weight gain Fatigue, unspecified type Persistent disorder of initiating or maintaining sleep Baldness Alopecia, unspecified documented in this encounter Care Teams Induction Machine Setter Relationship Specialty Start Date End Date Michelle Shannon MD [address] [place] [phone] PCP - General 09/08/11 documented as of this encounter
--- OUTSIDE RECORDS SUMMARY | 2024-04-28 15:55 | XMS_ITS | Encounter Summary ---
Author Organization [facility] Address [address] [place] [address] Care Team Providers Care Bus Girl Name Role Phone Michelle Shannon MD Primary Care Provider + Encounter Details Date Type Department Care Team (Late st Contact Info) Description 03/31/2020 Orders Only [facility] Breast Imaging Mammography - [address] [phone] Whitley Sauer MD [address] [facility], [address] [place] [phone] Social History Tobacco Use Types Packs/Day Years [...] Description 06/08/2024 13:30 EDT Office Visit [facility] [address] [facility] [address] [place] [address] Michelle Shannon MD [address] [place] [phone] documented as of this encounter Visit Diagnoses Not on filedocumented in this encounter Care Teams Bus Girl Relationship Specialty Start Date End Date Michelle Shannon MD [address] [place] [phone] PCP - General 09/08/11 documented as of this encounter
--- OUTSIDE RECORDS SUMMARY | 2024-04-28 15:55 | XMS_ITS | Encounter Summary ---
Author Organization [facility] Address [address] [place] [address] Care Team Providers Care Grill Cook Name Role Phone Michelle Shannon MD Primary Care Provider + Reason for Visit * Reason Onset Date Comments Medications Refill 09/24/2019 Encounter Details Date Type Department Care Team (Late st Contact Info) Description 09/24/2019 Refill [facility] [address] [place], [place] [phone] Chanel Mac RN Medications Refill Social History [...] Take one capsule at 4pm 30 Cap 09/24/2019 11/19/2019 documented in this encounter Miscellaneous Notes * Telephone Encounter - Chanel Mac RN - 09/24/2019 8156 EST Pt called to request refill for adderall 10 mg last filled 08/02/19 #30/0. Last ov 04/20/19.CHANEL MAC RN documented in this encounter Plan of Treatment Upcoming Encounters Date Type Department Care Team (Late st Contact Info) Description 06/08/2024 13:30 EDT Office Visit [facility] [address] [place] [address] Michelle Shannon MD [address] [place] [phone] documented as of this encounter Visit Diagnoses Not on filedocumented in this encounter Discontinued Medications Medication Sig Discontinue Reason Start Date End Da te dextroamphetamine-amphet amine (ADDERALL XR) 10 mg XR capsule Take one capsule at 4pm Reorder 08/02/2019 09/24/2019 documented as of this encounter Care Teams Grill Cook Relationship Specialty Start Date End Date Michelle Shannon MD [address] [place] [phone] PCP - General 09/08/11 documented as of this encounter
--- OUTSIDE RECORDS SUMMARY | 2024-04-28 15:55 | XMS_ITS | Encounter Summary ---
Author Organization [facility] Address [address] [place] [address] Care Team Providers Care Collision Mechanic Name Role Phone Michelle Shannon MD Primary Care Provider + Reason for Visit * Reason Onset Date Comments Medications Refill 02/22/2020 Encounter Details Date Type Department Care Team (Late st Contact Info) Description 02/22/2020 Refill [facility] [address] [place] [phone] Michelle Shannon MD [address] [place] [phone] Medications Refill Social History Tobacco Use [...] daily with breakfast. 100 Tab 02/22/2020 06/17/2020 documented in this encounter Miscellaneous Notes * Telephone Encounter - Taryn Salazar RN - 02/22/2020 1612 EDTFrom: Jane Blair Sent: 02/22/2020 14:09 EDT Subject: Medication Renewal Request Jane Blair would like a refill of the following medications: ferrous gluconate (FERGON) 324 mg (38 mg iron) tablet [Michelle Shannon MD] Preferred pharmacy: [id number] [facility] documented in this encounter Plan of Treatment Upcoming Encounters Date Type Department Care Team ([facility] Contact Info) Description 06/08/2024 13:30 EDT Office Visit [facility] [address] [facility] [address] [place], [place] [phone] Michelle Shannon MD [address] [place] [phone] documented as of this encounter Visit Diagnoses Not on filedocumented in this encounter Discontinued Medications Medication Sig Discontinue Reason Start Date End Da te ferrous gluconate (FERGON) 324 mg (38 mg iron) tablet Take 1 Tab by mouth daily with breakfast. Reorder 10/30/2019 02/22/2020 documented as of this encounter Care Teams Collision Mechanic Relationship Specialty Start Date End Date Michelle Shannon MD [address] [place] [phone] PCP - General 09/08/11 documented as of this encounter
--- OUTSIDE RECORDS SUMMARY | 2024-04-28 15:55 | XMS_ITS | Encounter Summary ---
Author Organization [facility] Address [address] [place] [address] Care Team Providers Care Rn Residential Name Role Phone Michelle Shannon MD Primary Care Provider + Reason for Visit * Reason Comments Other Encounter Details Date Type Department Care Team (Late st Contact Info) Description 03/31/2020 Refill [facility] [address] [place], [place] [phone] Michelle Shannon MD [address] [place] [phone] Other Social History Tobacco Use Types [...] USE 2 SPRAYS IN EACH NOSTRIL DAILY 16 g 03/31/2020 03/31/2020 documented in this encounter Plan of Treatment Upcoming Encounters Date Type Department Care Team (Late st Contact Info) Description 06/08/2024 13:30 EDT Office Visit [facility] [address] [place], [place] [phone] Michelle Shannon MD [address] [place] [phone] documented as of this encounter Visit Diagnoses Not on filedocumented in this encounter Discontinued Medications Medication Sig Discontinue Reason Start Date End Da te fluticasone propionate (FLONASE) 50 mcg/actuation nasal spray Instill 2 Sprays into both nostrils daily. 12/24/2019 03/31/2020 documented as of this encounter Care Teams Rn Residential Relationship Specialty Start Date End Date Michelle Shannon MD [address] [place] [phone] PCP - General 09/08/11 documented as of this encounter
--- OUTSIDE RECORDS SUMMARY | 2024-04-28 15:55 | XMS_ITS | Encounter Summary ---
Author Organization [facility] Address [address] [place] [address] Care Team Providers Care It Systems Manager Name Role Phone Michelle Shannon MD Primary Care Provider + Encounter Details Date Type Department Care Team (Late st Contact Info) Description 06/18/2020 Orders Only [facility] - [address] [place] [address] Ruslan García MD [address] [place] [phone] Chronic right shoulder pain (Primary Dx) Social History Tobacco [...] Info) Description 06/08/2024 13:30 EDT Office Visit [facility] [address] [place] [address] Michelle Shannon MD [address] [place] [phone] documented as of this encounter Results * POC MSK US SHOULDER (06/19/2020 15:47 EDT) Narrative [facility] POINT OF CARE - 06/19/2020 15:47 EDT This is a non-reportable exam. Ruslan García MD IMG US POC ORDERAB LES [facility] POINT OF CARE documented in this encounter Visit Diagnoses Diagnosis Chronic right shoulder pain- Primary Pain in joint, shoulder region Chronic right shoulder pain Pain in joint, shoulder region documented in this encounter Care Teams It Systems Manager Relationship Specialty Start Date End Date Michelle Shannon MD [address] [place] [phone] PCP - General 09/08/11 documented as of this encounter
--- OUTSIDE RECORDS SUMMARY | 2024-04-28 15:55 | XMS_ITS | Encounter Summary ---
Author Organization [facility] Address [address] [place] [address] Care Team Providers Care Automobile Rental Agent Name Role Phone Michelle Shannon MD Primary Care Provider + Encounter Details Date Type Department Care Team (Late st Contact Info) Description 05/10/2020 Prep for Procedure [facility] [address] [place], [place] [address] Joyce Harrison MD [address] [place] [phone] Social History Tobacco Use Types Packs/Day Years [...] Info) Description 06/08/2024 13:30 EDT Office Visit [facility] [address] [facility] [address] [place], [place] [phone] Michelle Shannon MD [address] [place] [phone] documented as of this encounter Visit Diagnoses Not on filedocumented in this encounter Care Teams Automobile Rental Agent Relationship Specialty Start Date End Date Michelle Shannon MD [address] [place] [phone] PCP - General 09/08/11 documented as of this encounter
--- OUTSIDE RECORDS SUMMARY | 2024-04-28 15:55 | XMS_ITS | Encounter Summary ---
Author Organization [facility] Address [address] [place] [address] Care Team Providers Care Design Engineer Agricultural Equipment Name Role Phone Michelle Shannon MD Primary Care Provider + Reason for Visit * Reason Onset Date Comments Medications Refill 01/25/2020 Encounter Details Date Type Department Care Team (Late st Contact Info) Description 01/25/2020 Refill [facility] [address] [place], [place] [address] Taryn Andrews, RN [address] [place] [phone] Medications Refill Social History Tobacco [...] daily. Daily Max: 2 Caps 60 Cap 01/25/2020 02/27/2020 documented in this encounter Miscellaneous Notes * Telephone Encounter - Taryn Andrews, RN - 01/25/2020 1037 EDT Message from Jane requesting refill of her Adderall 20mg XR BID to [facility] in [place]. Last ordered #60 on 12/24/19. TARYN ANDREWS RN documented in this encounter Plan of Treatment Upcoming Encounters Date Type Department Care Team (Late st Contact Info) Description 06/08/2024 13:30 EDT Office Visit [facility] 550 [facility] [address] [place] [address] Michelle Shannon MD [address] [place] [phone] documented as of this encounter Visit Diagnoses Not on filedocumented in this encounter Discontinued Medications Medication Sig Discontinue Reason Start Date End Da te dextroamphetamine-ampheta mine (ADDERALL XR) 20 mg XR capsule Take 1 Cap by mouth 2 times daily. Daily Max: 2 Caps Reorder 12/24/2019 01/25/2020 documented as of this encounter Care Teams Design Engineer Agricultural Equipment Relationship Specialty Start Date End Date Michelle Shannon MD [address] [place] [phone] PCP - General 09/08/11 documented as of this encounter
--- OUTSIDE RECORDS SUMMARY | 2024-04-28 15:55 | XMS_ITS | Encounter Summary ---
Author Organization [facility] Address [address] [place] [address] Care Team Providers Care Cerner Analyst Name Role Phone Michelle Shannon MD Primary Care Provider + Reason for Visit * Reason Onset Date Comments Medication Management 10/29/2019 Encounter Details Date Type Department Care Team (Late st Contact Info) Description 10/29/2019 Telephone [facility] [address] [place] [address] Michelle Shannon MD [address] [place] [phone] Medication Management Social History Tobacco Use [...] by mouth daily with breakfast. 100 Tab 10/30/2019 02/22/2020 documented in this encounter Miscellaneous Notes * Addendum Note - Michelle Shannon MD - 10/30/2019 1320 ESTAddended by: MICHELLE SHANNON on: 10/30/2019 13:20 Modules accepted: Orders * Telephone Encounter - Carolyn Mandi - 10/29/2019 1147 EST Pt is looking for a prescription for Ferrous Gluconate to be sent to [facility] in [place]. Mandi Leon MA documented in this encounter Plan of Treatment Upcoming Encounters Date Type Department Care Team (Late st Contact Info) Description 06/08/2024 13:30 EDT Office Visit [facility] [address] [place], [place] [phone] Michelle Shannon MD [address] [place] [phone] documented as of this encounter Visit Diagnoses Not on filedocumented in this encounter Care Teams Cerner Analyst Relationship Specialty Start Date End Date Michelle Shannon MD [address] [place] [phone] PCP - General 09/08/11 documented as of this encounter
--- OUTSIDE RECORDS SUMMARY | 2024-04-28 15:55 | XMS_ITS | Encounter Summary ---
Author Organization [facility] Address [address] [place] [address] Care Team Providers Care Supervisor Industrial Garment Name Role Phone Michelle Shannon MD Primary Care Provider + Reason for Visit * Reason Onset Date Comments Medications Refill 02/07/2020 Encounter Details Date Type Department Care Team ([facility] Contact Info) Description 02/07/2020 Refill [facility] [address] [place] [phone] Chanel Mac RN Medications Refill Social History [...] mouth daily. 90 Cap 1 02/07/2020 09/12/2020 documented in this encounter Miscellaneous Notes * Telephone Encounter - Chanel Mac RN - 02/07/2020 1248 EDT Pt called [facility] for refill on cymbalta 60 mg .CHANEL MAC RN documented in this encounter Plan of Treatment Upcoming Encounters Date Type Department Care Team ([facility] st Contact Info) Description 06/08/2024 13:30 EDT Office Visit [facility] [address] [place], [place] [phone] Michelle Shannon MD [address] [place] [phone] documented as of this encounter Visit Diagnoses Not on filedocumented in this encounter Discontinued Medications Medication Sig Discontinue Reason Start Date End Da te DULoxetine (CYMBALTA) 60 mg capsule Take 1 Cap by mouth daily. Reorder 05/21/2019 02/07/2020 documented as of this encounter Care Teams Supervisor Industrial Garment Relationship Specialty Start Date End Date Michelle Shannon MD [address] [place] [phone] PCP - General 09/08/11 documented as of this encounter
--- OUTSIDE RECORDS SUMMARY | 2024-04-28 15:55 | XMS_ITS | Encounter Summary ---
Author Organization [facility] Address [address] [place] [address] Care Team Providers Care Registered Dental Hygienist Name Role Phone Michelle Shannon MD Primary Care Provider + Reason for Visit * Reason Onset Date Comments Medications Refill 02/22/2020 Encounter Details Date Type Department Care Team (Late st Contact Info) Description 02/22/2020 Refill [facility] [address] [place], [place] [phone] Michelle Shannon MD [address] [place] [phone] Medications Refill Social History Tobacco [...] bedtime. Daily Max: 1 mg 28 Tab 02/22/2020 03/26/2020 documented in this encounter Miscellaneous Notes * Telephone Encounter - Michelle Shannon MD - 02/22/2020 1826 EDTFrom: Jane Blair Sent: 02/22/2020 14:08 EDT Subject: Medication Renewal Request Jane Blair would like a refill of the following medications: clonazePAM (KLONOPIN) 1 mg tablet [Michelle Shannon MD] Preferred pharmacy: [id number] [facility] Medication renewals requested in this message routed separately: ferrous gluconate (FERGON) 324 mg (38 mg iron) tablet [Michelle Shannon MD] pantoprazole (PROTONIX) 40 mg tablet [Michelle Shannon MD] documented in this encounter Plan of Treatment Upcoming Encounters Date Type Department Care Team ([facility] Contact Info) Description 06/08/2024 13:30 EDT Office Visit [facility] 550 [facility] [address] [place] [address] Michelle Shannon MD [address] [place] [phone] documented as of this encounter Visit Diagnoses Not on filedocumented in this encounter Discontinued Medications Medication Sig Discontinue Reason Start Date End Da te clonazePAM (KLONOPIN) 1 mg tablet Take 1 Tab by mouth at bedtime. Daily Max: 1 mg Reorder 01/23/2020 02/22/2020 documented as of this encounter Care Teams Registered Dental Hygienist Relationship Specialty Start Date End Date Michelle Shannon MD [address] [place] [phone] PCP - General 09/08/11 documented as of this encounter
--- OUTSIDE RECORDS SUMMARY | 2024-04-28 15:55 | XMS_ITS | Encounter Summary ---
Author Organization [facility] Address [address] [place] [address] Care Team Providers Care E Learning Manager Name Role Phone Michelle Shannon MD Primary Care Provider + Reason for Visit * Reason Onset Date Comments Medication Management 04/28/2020 Encounter Details Date Type Department Care Team (Late st Contact Info) Description 04/28/2020 Telephone [facility] [address] [place] [address] Michelle Shannon MD [address] [place] [phone] Medication Management Social History Tobacco [...] Telephone Encounter - Michelle Shannon MD - 04/28/2020 9654 EDT Left message for Jane. She is currently prescribed 20mg bid with an extra 10mg in the AM. If she wants to increase to 30mg bid, she needs an appt. * Telephone Encounter - Mandi Leon - 04/28/2020 9157 EDT Pt takes Adderall 20mg and 10mg in the AM. Pt wants to know if she should take a 20mg tab and 10mg in the evening too? Mandi Leon MA documented in this encounter Plan of Treatment Upcoming Encounters Date Type Department Care Team (Late st Contact Info) Description 06/08/2024 13:30 EDT Office Visit [facility] 550 [facility] [address] [place], [place] [phone] Michelle Shannon MD [address] [place] [phone] documented as of this encounter Visit Diagnoses Not on filedocumented in this encounter Care Teams E Learning Manager Relationship Specialty Start Date End Date Michelle Shannon MD [address] [place] [phone] PCP - General 09/08/11 documented as of this encounter
--- OUTSIDE RECORDS SUMMARY | 2024-04-28 15:55 | XMS_ITS | Encounter Summary ---
Author Organization [facility] Address [address] [place] [address] Care Team Providers Care Vice Investigator Name Role Phone Michelle Shannon MD Primary Care Provider + Reason for Visit * Reason Onset Date Comments Medications Refill 12/23/2019 Encounter Details Date Type Department Care Team (Late st Contact Info) Description 12/23/2019 Refill [facility] [address] [place] [address] Michelle Shannon MD [address] [place] [phone] Medications Refill Social History Tobacco Use [...] Take one capsule at 4pm 30 Cap 12/24/2019 02/27/2020 dextroamphetamine-ampheta mine (ADDERALL XR) 20 mg XR capsule Take 1 Cap by mouth 2 times daily. Daily Max: 2 Caps 60 Cap 12/24/2019 01/25/2020 ARIPiprazole (ABILIFY) 10 mg tablet Take 1 Tab by mouth at bedtime. 90 Tab 2 12/24/2019 10/29/2020 topiramate (TOPAMAX) 50 mg tablet Take 1 Tab by mouth 2 times daily. 180 Tab 1 12/24/2019 06/30/2020 fluticasone propionate (FLONASE) 50 mcg/actuation nasal spray Instill 2 Sprays into both nostrils daily. 16 g 12/24/2019 03/31/2020 documented in this encounter Miscellaneous Notes * Telephone Encounter - Michelle Shannon MD - 12/24/2019 1153 EDTFrom: Jane Blair Sent: 12/23/2019 18:35 EDT Subject: Medication Renewal Request Jane Blair would like a refill of the following medications: fluticasone (FLONASE) 50 mcg/actuation nasal spray [Michelle Shannon MD] topiramate (TOPAMAX) 50 mg tablet [Michelle Shannon MD] ARIPiprazole (ABILIFY) 10 mg tablet [Michelle Shannon MD] dextroamphetamine-amphetamine (ADDE RALL XR) 20 mg XR capsule [Michelle Shannon MD] dextroamphetamine-amphetamine (ADDERALL XR) 10 mg XR capsule [Michelle Shannon MD] Preferred pharmacy: [facility] #[id number] [facility] Medication renewals requested in this message routed separately: clonazePAM (KLONOPIN) 1 mg tablet [Michelle Shannon MD] documented in this encounter Plan of Treatment Upcoming Encounters Date Type Department Care Team (Late st Contact Info) Description 06/08/2024 13:30 EDT Office Visit [facility] 550 [facility] [address] [place], [place] [phone] Michelle Shannon MD [address] [place] [phone] documented as of this encounter Visit Diagnoses Not on filedocumented in this encounter Discontinued Medications Medication Sig Discontinue Reason Start Date End Da te fluticasone (FLONASE) 50 mcg/actuation nasal spray Instill 2 Sprays into both nostrils daily. Reorder 07/18/2017 12/23/2019 topiramate (TOPAMAX) 50 mg tablet take 1 tablet by mouth twice a day Reorder 10/27/2018 12/23/2019 ARIPiprazole (ABILIFY) 10 mg tablet Take 1 Tab by mouth at bedtime. Reorder 07/30/2019 12/23/2019 dextroamphetamine-amphe tamine (ADDERALL XR) 20 mg XR capsule Take 1 Cap by mouth 2 times daily. Daily Max: 2 Caps Reorder 11/19/2019 12/23/2019 dextroamphetamine-amphe tamine (ADDERALL XR) 10 mg XR capsule Take one capsule at 4pm Reorder 11/19/2019 12/23/2019 documented as of this encounter Care Teams Vice Investigator Relationship Specialty Start Date End Date Michelle Shannon MD [address] [place] [phone] PCP - General 09/08/11 documented as of this encounter
--- OUTSIDE RECORDS SUMMARY | 2024-04-28 15:55 | XMS_ITS | Encounter Summary ---
Author Organization [facility] Address [address] [place] [address] Care Team Providers Care Global Sales Manager Name Role Phone Michelle Shannon MD Primary Care Provider + Encounter Details Date Type Department Care Team (Late st Contact Info) Description 06/19/2020 Transcribe Orders [facility] [employer] [address] [place] [address] Kogn Woo MD [address] [facility] [address] [place] [phone] Encounter for preprocedure screening laboratory testing for [...] Description 06/08/2024 13:30 EDT Office Visit [facility] 550 [facility] [address] [place] [address] Michelle Shannon MD [address] [place] [phone] documented as of this encounter Results * COVID-19 TESTING (07/01/2020 9:59 EDT) COVID-19 rt-PCR Result NEGATIVE Negative 07/02/2020 20:32 EDT [facility] Comment: 2019-novel Coronavirus (2019-nCoV) not detected [...] in accordance with CLIA regulations, [employer] [place] (CAP) guidelines (Dec 13, 2019), and FDA guidance (Nov 24, 2019). This test is only for use under the Food and Drug Administration's Emergency Use Authorization. Performing Lab [facility] 07/02/2020 20:32 EDT [facility] Swab ENTIRE NASOPHARYNX / Unknown Swab / Unknown 07/01/2020 9:59 EDT 07/01/2020 9:59 EDT Kong Woo MD MICROBIOLOGY - GEN ERAL ORDERABLES [facility] [address] [place], [place] [phone] [place] [address] LABORATORY [place], [place] documented in this encounter Visit Diagnoses Diagnosis Encounter for preprocedure screening laboratory testing for COVID-19- Primary documented in this encounter Care Teams Global Sales Manager Relationship Specialty Start Date End Date Michelle Shannon MD [address] [place] [phone] PCP - General 09/08/11 documented as of this encounter
--- OUTSIDE RECORDS SUMMARY | 2024-04-28 15:55 | XMS_ITS | Encounter Summary ---
Author Organization [facility] Address [address] [place] [address] Care Team Providers Care Cna Name Role Phone Michelle Shannon MD Primary Care Provider + Reason for Visit * Reason Onset Date Comments Medications Refill 10/08/2019 Encounter Details Date Type Department Care Team ([facility] Contact Info) Description 10/08/2019 Refill Benito Crowley MD, [facility] [address] [place], [place] [phone] Chanel Mac RN Medications Refill Social History [...] bedtime. Daily Max: 1 mg 28 Tab 10/08/2019 11/14/2019 documented in this encounter Miscellaneous Notes * Telephone Encounter - Chanel Mac RN - 10/08/2019 9894 EST Pt refill request for klonopin.CHANEL MAC RN documented in this encounter Plan of Treatment Upcoming Encounters Date Type Department Care Team ([facility] Contact Info) Description 06/08/2024 13:30 EDT Office Visit [facility] [address] [place], [place] [phone] Michelle Shannon MD [address] [place] [phone] documented as of this encounter Visit Diagnoses Not on filedocumented in this encounter Discontinued Medications Medication Sig Discontinue Reason Start Date End Da te clonazePAM (KLONOPIN) 1 mg tablet Take 1 Tab by mouth at bedtime. Daily Max: 1 mg Reorder 08/28/2019 10/08/2019 documented as of this encounter Care Teams Cna Relationship Specialty Start Date End Date Michelle Shannon MD [address] [place] [phone] PCP - General 09/08/11 documented as of this encounter
--- OUTSIDE RECORDS SUMMARY | 2024-04-28 15:55 | XMS_ITS | Encounter Summary ---
Author Organization [facility] Address [address] [place] [address] Care Team Providers Care Energy Project Manager Name Role Phone Michelle Shannon MD Primary Care Provider + Reason for Visit * Reason Onset Date Comments Medications Refill 01/23/2020 Encounter Details Date Type Department Care Team (Late st Contact Info) Description 01/23/2020 Refill [facility] [address] [place], [place] [phone] Chanel aMc RN Medications Refill Social History Tobacco Use [...] bedtime. Daily Max: 1 mg 28 Tab 01/23/2020 02/22/2020 documented in this encounter Miscellaneous Notes * Telephone Encounter - Chanel Mac RN - 01/23/2020 1416 EDT Pt called [facility] for refill on clonazepam 1 mg po q hs . Last filled 12/24/19 #28/0. Last ov 12/26/19 . Pended to for approval .CHANEL MAC, RN documented in this encounter Plan of Treatment Upcoming Encounters Date Type Department Care Team (Late st Contact Info) Description 06/08/2024 13:30 EDT Office Visit [facility] [address] [place], [place] [phone] Michelle Shannon MD [address] [place] [phone] documented as of this encounter Visit Diagnoses Not on filedocumented in this encounter Discontinued Medications Medication Sig Discontinue Reason Start Date End Da te clonazePAM (KLONOPIN) 1 mg tablet Take 1 Tab by mouth at bedtime. Daily Max: 1 mg Reorder 12/24/2019 01/23/2020 documented as of this encounter Care Teams Energy Project Manager Relationship Specialty Start Date End Date Michelle Shannon MD [address] [place] [place] [phone] PCP - General 09/08/11 documented as of this encounter
--- OUTSIDE RECORDS SUMMARY | 2024-04-28 15:55 | XMS_ITS | Encounter Summary ---
Author Organization [facility] Address [address] [place] [address] Care Team Providers Care Street Sweeper Name Role Phone Michelle Shannon MD Primary Care Provider + Reason for Visit * Reason Comments URI Encounter Details Date Type Department Care Team (Late st Contact Info) Description 09/07/2019 9:30 EST Office Visit [facility] [address], [place] [phone] Yenifer Rolon, BENCH MOVER [address] [place] [phone] Acute nasopharyngitis (Primary Dx) Social History Tobacco Use Types [...] Sign Reading Time Taken Comments Blood Pressure 102/70 09/07/2019 0946 EST Pulse 90 09/07/2019 0946 EST Temperature 36.9 ??C (98.4 ??F) 09/07/2019 0946 EST Respiratory Rate - - Oxygen Saturation 97% 09/07/2019 0946 EST Inhaled Oxygen Concentration - - Weight - - Height - - Body Mass Index - - documented in this encounter Progress Notes * Yenifer Rolon, BENCH MOVER - 09/07/2019 6066 EST Subjective: Patient ID: Jane Blair is an 44 y.o. female. No chief complaint on file. HPI Jane presents with nasal congestion that is discolored in the morning then clear throughout the day, a dry cough, and sinus pressure only in the morning. She has not had fevers. No shortness of breath. No sore throat. Her symptoms have been present for 7 days and are persistent. She is taking dayquil and flumax. She is concerned as she is scheduled for an elective tonsillectomy on 09/17. Patient Active Problem List Diagnosis ??? Narcolepsy without cataplexy ??? REM sleep behavior disorder ??? Migraine with aura ??? Episodic mood disorder (HCC-CMS) ??? MDD (major depressive disorder), recurrent episode, moderate (HCC-CMS) ??? GERD without esophagitis ??? Vitamin D deficiency ??? Allergic rhinitis Past Medical History: Diagnosis Date ??? Hearing difficulty ??? Unspecified cerebral artery occlusion with cerebral infarction ??? Vasovagal syncope Past Surgical History: Procedure Laterality Date ??? BREAST BIOPSY Family History Problem Relation Age of Onset [...] mouth at bedtime. 90 Tab 2 ??? qodzlwc-yhsyhdnvextqg-vmjrhspx (EXCEDRIN MIGRAINE) 250-250-65 mg per tablet Take 1 Tab by mouthevery 6 hours as needed. Indications: MIGRAINE ??? Azelaic Acid (FINACEA) 15 % gel Apply topically 2 times daily. ??? calcium-vitamin D (OS-NOEMY D) 500 mg(1,250mg) -200 unit per tablet Take 1 Tab by mouth 2 times daily with breakfast and dinner. 60 Tab 0 ??? clonazePAM (KLONOPIN) 1 mg tablet Take [...] by mouth daily. 90 Cap 1 ??? fluticasone (FLONASE) 50 mcg/actuation nasal spray Instill [...] 1 ??? topiramate (TOPAMAX) 50 mg tablet take 1 tablet by mouth twice a day 180 Tab 1 No current facility-administered medications on file prior to visit. No Known Allergies Review of Systems Constitutional: Negative for chills and fever. HENT: Positive for congestion and sinus pain. Negative for ear pain and sore throat. Respiratory: Positive for cough. Negative for sputum production and shortness of breath. - See HPI Objective: BP 102/70 Pulse 90 Temp 36.9 ??C (98.4 ??F) (Tympanic) SpO2 97% Physical Exam Constitutional: She appears well-developed and well-nourished. No distress. HENT: Right Ear: Tympanic membrane, external ear and ear canal normal. Left Ear: Tympanic membrane, external ear and ear canal normal. Nose: Mucosal edema present. No rhinorrhea. Right sinus exhibits no maxillary sinus tenderness and no frontal sinus tenderness. Left sinus exhibits no maxillary sinus tenderness and no frontal sinus tenderness. Mouth/Throat: Oropharynx is clear and moist. Cardiovascular: Normal rate, regular rhythm and normal heart sounds. Pulmonary/Chest: Effort normal and breath sounds normal. Lymphadenopathy: She has no cervical adenopathy. Assessment: URI Plan: Diagnoses and all orders for this visit: Acute nasopharyngitis URI: Suspect viral URI, no evidence of a bacterial infection on exam Continue fluticasone nasal spray BID Continue rest and fluids Call next week if symptoms persist or worsen, especially for fevers, sinus pain, or purulent nasal drainage and then would call in an antibiotic Yenifer Rolon APRN documented in this encounter Plan of Treatment Upcoming Encounters Date Type Department Care Team (Late st Contact Info) Description 06/08/2024 13:30 EDT Office Visit [facility] [address] [facility] [address] [place] [address] Michelle Shannon MD [address] [place] [phone] documented as of this encounter Visit Diagnoses Diagnosis Acute nasopharyngitis- Primary Acute nasopharyngitis (common cold) documented in this encounter Care Teams Street Sweeper Relationship Specialty Start Date End Date Michelle Shannon MD [address] [place] [phone] PCP - General 09/08/11 documented as of this encounter
--- OUTSIDE RECORDS SUMMARY | 2024-04-28 15:55 | XMS_ITS | Encounter Summary ---
Author Organization [facility] Address [address] [place] [address] Care Team Providers Care Parole Agent Name Role Phone Michelle Shannon MD Primary Care Provider + Encounter Details Date Type Department Care Team (Late st Contact Info) Description 02/22/2020 Transcribe Orders Non [facility] Joyce Solomon, GEORGE [address] [place] [address] Social History Tobacco Use Types Packs/Day Years [...] Info) Description 06/08/2024 13:30 EDT Office Visit [facility] [address] [place] [address] Michelle Shannon MD [address] [place] [phone] documented as of this encounter Visit Diagnoses Not on filedocumented in this encounter Care Teams Parole Agent Relationship Specialty Start Date End Date Michelle Shannon MD [address] [place] [phone] PCP - General 09/08/11 documented as of this encounter
--- OUTSIDE RECORDS SUMMARY | 2024-04-28 15:55 | XMS_ITS | Encounter Summary ---
Author Organization [facility] Address [address] [place] [address] Care Team Providers Care Hides Soaker Name Role Phone Michelle Shannon MD Primary Care Provider + Reason for Visit * Reason Onset Date Comments Medications Refill 10/12/2019 Encounter Details Date Type Department Care Team (Late st Contact Info) Description 10/12/2019 Orders Only Benito Crowley MD, [facility] [address] [place], [place] [phone] Taryn Andrews RN [address] [place] [phone] 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) Social History [...] daily. Daily Max: 2 Caps 60 Cap 10/12/2019 11/19/2019 documented in this encounter Progress Notes * Taryn Andrews, JOSEFINA - 10/12/2019 1551 EST Message for refill request rec'd from Jane for adderall XR 20mg. Last ordered 08/28/2019. Pended to Dr. Shannon for fill at [facility] in [place]. TARYN ANDREWS, RN documented in this encounter Plan of Treatment Upcoming Encounters Date Type Department Care Team (Late st Contact Info) Description 06/08/2024 13:30 EDT Office Visit [facility] [address] [place] [address] Michelle Shannon MD [address] [place] [phone] documented as of this encounter Visit Diagnoses Diagnosis Narcolepsy without cataplexy- Primary documented in this encounter Discontinued Medications Medication Sig Discontinue Reason Start Date End Da te dextroamphetamine-ampheta mine (ADDERALL XR) 20 mg XR capsule Take 1 Cap by mouth 2 times daily. Daily Max: 2 Caps Reorder 08/28/2019 10/12/2019 documented as of this encounter Care Teams Hides Soaker Relationship Specialty Start Date End Date Michelle Shannon MD [address] [place] [phone] PCP - General 09/08/11 documented as of this encounter
--- OUTSIDE RECORDS SUMMARY | 2024-04-28 15:55 | XMS_ITS | Encounter Summary ---
Author Organization [facility] Address [address] [place] [address] Care Team Providers Care Sap Bpc Developer Name Role Phone Michelle Shannon MD Primary Care Provider + Encounter Details Date Type Department Care Team (Late st Contact Info) Description 02/29/2020 11:00 EDT Telemedicine [facility] [address] [place] [address] Michelle Shannon MD [address] [place] [phone] Social History Tobacco Use Types Packs/Day Years [...] 10:44 EDT documented as of this encounter Progress Notes * Michelle Shannon MD - 02/29/2020 1100 EDT Attempted to reach patient today by phone for tele-video conferencing. No answer. Left message asking her to call to reschedule. Preferably in person visit. documented in this encounter Miscellaneous Notes * Addendum Note - Michelle Shannon MD - 02/29/2020 1100 EDTAddended by: MICHELLE SHANNON on: 02/29/2020 11:46 Modules accepted: Level of Service documented in this encounter Plan of Treatment Upcoming Encounters Date Type Department Care Team (Late st Contact Info) Description 06/08/2024 13:30 EDT Office Visit [facility] [address] [place], [place] [phone] Michelle Shannon MD [address] [place] [phone] documented as of this encounter Visit Diagnoses Not on filedocumented in this encounter Care Teams Sap Bpc Developer Relationship Specialty Start Date End Date Michelle Shannon MD [address] [place] [phone] PCP - General 09/08/11 documented as of this encounter
--- OUTSIDE RECORDS SUMMARY | 2024-04-28 15:55 | XMS_ITS | Encounter Summary ---
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); MDD (major depressive disorder), recurrent episode, moderate (HCC-CMS); REM sleep behavior disorder Social History Tobacco [...] Sign Reading Time Taken Comments Blood Pressure 118/74 11/19/2019 1325 EST Pulse 74 11/19/2019 1325 EST Temperature 36.8 ??C (98.2 ??F) 11/19/2019 1325 EST Respiratory Rate - - Oxygen Saturation 98% 11/19/2019 1325 EST Inhaled Oxygen Concentration - - Weight 79.8 kg (176 lb) 11/19/2019 1325 EST Height - - Body Mass Index 29.29 02/02/2019 1038 EDT documented in this encounter Ordered Prescriptions Prescription Sig Dispensed Refills Start Date End Da te dextroamphetamine-ampheta mine (ADDERALL XR) 10 mg XR capsule Take one capsule at 4pm 30 Cap 11/19/2019 12/23/2019 dextroamphetamine-ampheta mine (ADDERALL XR) 20 mg XR capsule Take 1 Cap by mouth 2 times daily. Daily Max: 2 Caps 60 Cap 11/19/2019 12/23/2019 documented in this encounter Progress Notes * Michelle Shannon MD - 11/19/2019 1330 EST Subjective: Patient ID: Jane Blair is an 44 y.o. female. Chief Complaint Patient presents with ??? Medication Management HPI Jane is here for routine f/u for narcolepsy and major depressive disorder. Since last seen, she has not been working or taking any classes. She has tried completing college courses and holding down several jobs over the last decade but her physical and mental health issues have made it difficult for her to complete courses and stay employed. She is living with her mother and receiving [facility]. She is looking into independent housing but still struggles financially. Due to her narcolepsy she continues to sleep excessively. Taking Adderall 20 mg bid and rarely takesa 10mg in the afternoon to help her complete tasks. She is also takes Clonazepam and Abilify 10mg for sleep and Duloxetine 60mg each day. Meets with her therapist weekly at his last counseling, but she is going on maternity leave in December and she will need to find a new therapist. Also meets with PULMONARY SPECIALIST/SW (community rehab therapist) Aixa Powell on a weekly basis. Still has not tried DBT in [facility], but waiting for the next cohort begins She has her tonsils removed at [facility] in August. She has noticed better breathing at night. No longer drools or snores at night. Eating is also easier. . Patient Active Problem List Diagnosis ??? Narcolepsy [...] mouth at bedtime. 90 Tab 2 ??? yhrjksd-ucuvigtrcnbrg-ocmvupfk (EXCEDRIN MIGRAINE) 250-250-65 mg per tablet Take 1 Tab by mouthevery 6 hours as needed. Indications: MIGRAINE ??? Azelaic Acid (FINACEA) 15 % gel Apply topically 2 times daily. ??? cholecalciferol, Vitamin D3, 1,000 unit tablet Take 1,000 Units by mouth daily. ??? clonazePAM (KLONOPIN) 1 mg tablet Take 1 Tab by mouth at bedtime. Daily Max: 1 mg 28 Tab 0 ??? DULoxetine (CYMBALTA) 60 mg capsule Take 1 Cap by mouth daily. 90 Cap 1 ??? ferrous gluconate (FERGON) 324 mg (38 mg iron) tablet Take 1 Tab by mouth daily with breakfast.100 Tab 0 ??? fluticasone (FLONASE) 50 mcg/actuation nasal spray [...] is nervous/anxious and has insomnia. Objective: BP 118/74 Pulse 74 Temp 36.8 ??C (98.2 ??F) (Tympanic) Wt 79.8 kg (176 lb) SpO2 98% BMI 29.29 kg/m?? Physical Exam Constitutional: She appears well-developed and well-nourished. No distress. HEENT: Tonsils are removed Cardiovascular: Normal rate, regular rhythm, Skin: Evidence of skin picking on face Psychiatric: Her mood appears anxious. Her speech is rapid and/or pressured. She is not agitated, not hyperactive and not withdrawn. She does not exhibit a depressed mood. Pt is mildly forgetful. Assessment: Plan: Jane was seen today for medication management. Diagnoses and all orders for this visit: Narcolepsy without cataplexy MDD (major depressive disorder), recurrent episode, moderate ([facility]-CMS) REM sleep behavior disorder Other orders - cholecalciferol, Vitamin D3, 1,000 unit tablet; Take 1,000 Units by mouth daily. - dextroamphetamine-amphetamine (ADDERALL XR) 20 mg XR capsule; Take 1 Cap by mouth 2 times daily. Daily Max: 2 Caps - dextroamphetamine-amphetamine (ADDERALL XR) 10 mg XR capsule; Take one capsule at 4pm Narcolepsy and REM sleep disorder- stable Continue Clonazepam at night Taking Adderall 20mg bid and the 10mg in the evening prn Major depressive disorder - stable Continue duloxetine 60mg and Abilify 10mg at hs Melatonin at hs She is working with her counselor weekly and [facility]. [facility] Continue working with PULMONARY SPECIALIST Sasha Bonilla Right shoulder impingement syndrome wih rotator cuff tendinitis and subacromial bursitis Missed last appt with Dr García, in May, but sx are doing better She has not been able to afford copays for PT and he SSDI income is too high to qualify for Medicaid Will monitor sx for now Goals None Michelle Shannon MD documented in this encounter Plan of Treatment Upcoming Encounters Date Type Department Care Team (Late st Contact Info) Description 06/08/2024 13:30 EDT Office Visit [facility] [address] [facility] [address] [place] [address] Michelle Shannon MD [address] [place] [phone] documented as of this encounter Visit Diagnoses Diagnosis Narcolepsy without cataplexy- Primary MDD (major depressive disorder), recurrent episode, moderate (HCC-CMS) Major depressive disorder, recurrent episode, moderate REM sleep behavior disorder documented in this encounter Discontinued Medications Medication Sig Discontinue Reason Start Date End Da te calcium-vitamin D (OS-NOEMY D) 500 mg(1,250mg) -200 unit per tabletIndications:MDD (major depressive disorder), recurrent episode, moderate (HCC-CMS) Take 1 Tab by mouth 2 times daily with breakfast and dinner. 08/20/2014 11/19/2019 dextroamphetamine-amphe tamine (ADDERALL XR) 20 mg XR capsule Take 1 Cap by mouth 2 times daily. Daily Max: 2 Caps Reorder 10/12/2019 11/19/2019 dextroamphetamine-amphe tamine (ADDERALL XR) 10 mg XR capsule Take one capsule at 4pm Reorder 09/24/2019 11/19/2019 documented as of this encounter Historical Medications * This list may reflect changes made after this encounter. Medication Sig Dispensed Refills Start Date End Date cholecalciferol, Vitamin D3, 1,000 unit tablet Take 1 Tablet by mouth daily. 04/25/2023 added in this encounter Care Teams Turnaround Engineer Relationship Specialty Start Date End Date Michelle Shannon MD [address] [place] [phone] PCP - General 09/08/11 documented as of this encounter
--- OUTSIDE RECORDS SUMMARY | 2024-04-28 15:55 | XMS_ITS | Encounter Summary ---
Author Organization [facility] Address [address] [place] [address] Care Team Providers Care Continuum Of Care Manager Name Role Phone Michelle Shannon MD Primary Care Provider + Reason for Visit * Reason Onset Date Comments Anxiety 12/24/2019 Encounter Details Date Type Department Care Team (Late st Contact Info) Description 12/24/2019 Telephone [facility] [address] [place] [address] Michelle Shannon MD [address] [place] [phone] Anxiety Social History Tobacco Use Types Packs/Day Years [...] * Telephone Encounter - Mandi Leon - 12/24/2019 1520 EDT Pt is feeling a lot of anxiety due to the current covid 19 pandemic. Pt is wondering if she could be prescribed an anti anxiety medication. Please call pt to be scheduled for a telemedicine visit. Mandi Leon MA documented in this encounter Plan of Treatment Upcoming Encounters Date Type Department Care Team (Late st Contact Info) Description 06/08/2024 13:30 EDT Office Visit [facility] [address] [place], [place] [phone] Michelle Shannon MD [address] [place] [phone] documented as of this encounter Visit Diagnoses Not on filedocumented in this encounter Care Teams Continuum Of Care Manager Relationship Specialty Start Date End Date Michelle Shannon MD [address] [place] [phone] PCP - General 09/08/11 documented as of this encounter
--- OUTSIDE RECORDS SUMMARY | 2024-04-28 15:55 | XMS_ITS | Encounter Summary ---
Author Organization [facility] Address [address] [place] [address] Care Team Providers Care Metal Fabricator Apprentice Name Role Phone Michelle Shannon MD Primary Care Provider + Encounter Details Date Type Department Care Team (Latest Contact Info) Description 02/21/2020 Transcribe Orders Non [facility] Ancillary Services Joyce Solomon, GEOR[place] [address] [place], [place] [id number] Abnormal weight gain (Primary Dx); Fatigue, unspecified [...] Info) Description 06/08/2024 13:30 EDT Office Visit [facility] [address] [facility] [address] [place] [address] Michelle Shannon MD [address] [place] [address] [phone] documented as of this encounter Results * TSH (02/22/2020 11:14 EDT) Pathologist [facility] TSH 3.08 0.47 - 4.68 uIU/mL 02/22/2020 13:17 EDT [facility] Blood VENOUS BLOOD / Unknown Venipuncture / Unknown 02/22/2020 11:14 EDT 02/22/2020 11:14 EDT Narrative [facility] - 02/22/2020 13:17 EDT The results of this assay can be falsely lowered due to the consumption of Biotin. Joyce Solomon ND CHEMISTRY & BLOOD GA S ORDERABLES Performing Organization Address [facility] de Phone Number [facility] [address] [place] [address] * T3 FREE (02/22/2020 11:14 EDT) Pathologist [facility] T3, Free 4.1 2.8 - 5.3 pg/mL 02/22/2020 13:02 EDT [facility] Blood VENOUS BLOOD / Unknown Venipuncture / Unknown 02/22/2020 11:14 EDT 02/22/2020 11:14 EDT Joyce Solomon ND CHEMISTRY & BLOOD GA S ORDERABLES Performing Organization Address [facility] Co de Phone Number [facility] [address] [place] [address] * (ABNORMAL) COMPLETE BLOOD COUNT AND DIFFERENTIAL (02/22/2020 11:14 EDT) Pathologist [facility] WBC 7.53 4.00 - 12.40 K/cmm 02/22/2020 12:21 EDT [facility] RBC 3.99 3.86 - 5.04 M/cmm 02/22/2020 12:21 EDT [facility] Hemoglobin 13.1 11.6 - 15.2 gm/dL 02/22/2020 12:21 EDT [facility] HCT 39.6 34.9 - 44.4 % 02/22/2020 12:21 [facility] MCV 99(H) 81 - 98 fl 02/22/2020 12:21 [facility] MCH 32.8 26.7 - 33.3 pg 02/22/2020 12:21 [facility] MCHC 33.1 32.1 - 35.9 gm/dL 02/22/2020 12:21 [facility] RDW-CV 13.0 <14.7 % 02/22/2020 12:21 [facility] RDW-SD 47.3 <50.4 fl 02/22/2020 12:21 [facility] PLT 367 141 - 377 K/cmm 02/22/2020 12:21 [facility] MPV 10.0 9.5 - 12.7 fl 02/22/2020 12:21 [facility] % Neutrophils 53.2 % 02/22/2020 12:21 [facility] % Lymphocytes 35.6 % 02/22/2020 12:21 [facility] % Monocytes 8.6 % 02/22/2020 12:21 [facility] % Eosinophils 1.3 % 02/22/2020 12:21 [facility] % Basophils 0.4 % 02/22/2020 12:21 [facility] % Immature Grans 0.9 % 02/22/20 20 12:21 [facility] Absolute Neutrophils 4.00 2.20 - 8.85 K/cmm 02/22/2020 12:21 [facility] Absolute Lymphocytes 2.68 1.09 - 3.30 K/cmm 02/22/2020 12:21 [facility] Absolute Monocytes 0.65 0.10 - 0.80 K/cmm 02/22/2020 12:21 [facility] Absolute Eosinophils 0.10 0.03 - 0.61 K/cmm 02/22/2020 12:21 [facility] ABS Basophils 0.03 0.01 - 0.11 K/cmm 02/22/2020 12:21 EDT [facility] Absolute Immature Grans 0.07(H) 0.00 - 0.06 K/cmm 02/22/2020 12:21 EDT [facility] Type of Differential: Auto 02/22/2020 12:21 EDT [facility] Blood VENOUS BLOOD / Unknown Venipuncture / Unknown 02/22/2020 11:14 EDT 02/22/2020 11:14 EDT Joyce Solomon ND PACKAGES & DNA PROBE ORDERABLES Performing Organization Address City/[facility] Co de Phone Number [facility] [address] [place] [address] * VITAMIN D (25,OH) (02/22/2020 11:14 EDT) 25OH Vitamin D Tot 30.2 30.0 - 100.0 ng/mL 02/22/2020 14:01 EDT [facility] Comment: Vitamin D 25,OH Interpretive Ranges: Deficiency: ??<10.0 ng/mL Insufficiency: ??10.0 - 30.0 ng/mL Sufficiency: ??30.0 - 100.0 ng/mL Toxicity: ??>100.0 ng/mL Blood VENOUS BLOOD / Unknown Venipuncture / Unknown 02/22/2020 11:14 EDT 02/22/2020 11:14 EDT Joyce Solomon ND CHEMISTRY & BLOOD GA S ORDERABLES Performing Organization Address City/[facility]/ZIP Co de Phone Number [facility] [address] [place] [address] * VITAMIN B12 (02/22/2020 11:14 EDT) Vitamin B12 489 211 - 911 pg/mL 02/22/2020 14:28 EDT [facility] Blood VENOUS BLOOD / Unknown Venipuncture / Unknown 02/22/2020 11:14 EDT 02/22/2020 11:14 EDT Joyce Solomon ND CHEMISTRY & BLOOD GA S ORDERABLES Performing Organization Address [facility] de Phone Number [facility] [address] [place] [address] * THYROID ANTIBODIES (02/22/2020 11:14 EDT) Anti-Thyroglobulin 15 <=60 U/mL 2019 14:28 EDT [facility] Thyroperoxidase Ab 29 <=60 U/mL 2019 14:28 EDT [facility] Blood VENOUS BLOOD / Unknown Venipuncture / Unknown 02/22/2020 11:14 EDT 02/22/2020 11:14 EDT Joyce Solomon ND CHEMISTRY & BLOOD GA S ORDERABLES Performing Organization Address [facility] de Phone Number [facility] [address] [place] [address] * T4 FREE (02/22/2020 11:14 EDT) T4, Free 1.0 0.8 - 2.2 ng/dL 02/22/2020 13:02 EDT [facility] Blood VENOUS BLOOD / Unknown Venipuncture / Unknown 02/22/2020 11:14 EDT 02/22/2020 11:14 EDT Joyce Solomon ND CHEMISTRY & BLOOD GA S ORDERABLES Performing Organization Address [facility] de Phone Number [facility] [address] [place] [address] * MAGNESIUM (02/22/2020 11:14 EDT) Magnesium 2.1 1.7 - 2.8 mg/dL 02/22/2020 12:44 EDT [facility] Blood VENOUS BLOOD / Unknown Venipuncture / Unknown 02/22/2020 11:14 EDT 02/22/2020 11:14 EDT Joyce Solomon ND CHEMISTRY & BLOOD GA S ORDERABLES Performing Organization Address City/[facility]/ZIP Co de Phone Number [facility] [address] [place] [address] * IRON (02/22/2020 11:14 EDT) Iron 141 37 - 170 ug/dL 02/22/2020 12:44 EDT [facility] Blood VENOUS BLOOD / Unknown Venipuncture / Unknown 02/22/2020 11:14 EDT 02/22/2020 11:14 EDT Joyce Solomon ND CHEMISTRY & BLOOD GA S ORDERABLES Performing Organization Address [facility] Co de Phone Number [facility] [address] [place] [address] * HEMOGLOBIN A1C (02/22/2020 11:14 EDT) Hemoglobin A1c 5.3 <5.7 % 02/22/2020 15:15 EDT [facility] Comment: Glycemic Status References: [...] Avg Glucose 105 mg/dL 0 15:15 EDT [facility] Comment: The eAG represents the A1c result expressed as average glucose in mg/dL. Blood VENOUS BLOOD / Unknown Venipuncture / Unknown 02/22/2020 11:14 EDT 02/22/2020 11:14 EDT Joyce Solomon ND CHEMISTRY & BLOOD GA S ORDERABLES Performing Organization Address City/[facility]/ZIP Co de Phone Number [facility] [address] [place] [address] * FERRITIN (02/22/2020 11:14 EDT) Ferritin 45 10 - 291 ng/mL 02/22/2020 14:28 EDT [facility] Blood VENOUS BLOOD / Unknown Venipuncture / Unknown 02/22/2020 11:14 EDT 02/22/2020 11:14 EDT Joyce Solomon ND CHEMISTRY & BLOOD GA S ORDERABLES Performing Organization Address [facility] Co de Phone Number [facility] [address] [place] [address] * LIPID PROFILE (INCLUDES CHOLESTEROL, TRIGLYCERIDES, HDL, LDL) (02/22/2020 11:14 EDT) Cholesterol 192 See Note mg/dL 02/22/2020 12:44 [facility] Comment: Acceptable: ?<200 mg/dL Borderline High: 200-239 mg/dL High: ?> or = 240 mg/dL HDL 38 See Note mg/dL 02/22/2020 12:44 [facility] Comment: Low: ? <40 mg/dL Normal: ??40-60 mg/dL High: ?>60 mg/dL LDL, Calculated 114 See Note mg/dL 02/22/2020 12:44 [facility] Comment: Optimal: ? <100 mg/dL Near Optimal: ?100-129 mg/dL Borderline High: 130-159 mg/dL High: ?160-189 mg/dL Very High: ? > or = 190 mg/dL Triglyceride 199 See Note mg/dL 02/22/2020 12:44 [facility] Comment: Normal: ? <150 mg/dL Borderline High: ??150 - 199 mg/dL High: ? 200 - 499 mg/dL Very High: ?> or = 500 mg/dL Chol/HDL Ratio 5.1 See Note 02/22/2020 12:44 [facility] Comment: No reference range has been established for CHOL/HDL ratio. Non HDL Cholesterol 154 See Note mg/dL 02/22/2020 12:44 [facility] Comment: Desirable: ?<130 mg/dL Borderline High: ??130-159 mg/dL High: ? 160-189 mg/dL Very High: ?> or = 190 mg/dL Blood VENOUS BLOOD / Unknown Venipuncture / Unknown 02/22/2020 11:14 EDT 02/22/2020 11:14 EDT Joyce Solomon ND CHEMISTRY & BLOOD GA S ORDERABLES Performing Organization Address City/State/[facility] Co de Phone Number [facility] [address] [place] [address] * (ABNORMAL) COMPREHENSIVE METABOLIC PANEL (CMP) (02/22/2020 11:14 EDT) Sodium 136 136 - 145 mEq/L 02/22/2020 12:44 [facility] Potassium 4.3 3.5 - 5.0 mEq/L 02/22/2020 12:44 [facility] Chloride 106 96 - 110 mEq/L 02/22/2020 12:44 [facility] CO2 Total 20(L) 22 - 32 mEq/L 02/22/2020 12:44 [facility] Glucose 86 70 - 100 mg/dL 02/22/2020 12:44 [facility] BUN 18 10 - 26 mg/dL 02/22/2020 12:44 [facility] Creatinine 0.86 0.52 - 1.04 mg/dL 02/22/2020 12:44 [facility] eGFR 82 >60 mL/min/1.7 3m2 02/22/2020 12:44 [facility] Comment:eGFR calculated chichi wall CKD-EPI equation for non- Americans. Multiply eGFR by 1.16 for patients. Total Protein 7.0 6.3 - 8.2 g/dL 02/22/2020 12:44 T [facility] Albumin 4.1 3.4 - 4.9 g/dL 02/22/2020 12:44 [facility] Alkaline Phosphatase 72 38 - 126 U/L 02/22/2020 12:44 [facility] AST 19 15 - 46 U/L 02/22/2020 12:44 [facility] ALT 15 <35 U/L 02/22/2020 12:44 [facility] Bilirubin, Total 0.8 <1.4 mg/dL 02/22/20 20 12:44 [facility] Calcium 9.1 8.5 - 10.5 mg/dL 02/22/2020 12:44 [facility] Calculated Calcium 9.0 8.5 - 10.5 mg/dL 02/22/2020 12:44 [facility] Blood VENOUS BLOOD / Unknown Venipuncture / Unknown 02/22/2020 11:14 EDT 02/22/2020 11:14 EDT Joyce Solomon ND CHEMISTRY & BLOOD GA S ORDERABLES [facility] [address] [place] [address] documented in this encounter Visit Diagnoses Diagnosis Abnormal weight gain- Primary Fatigue, unspecified type Persistent disorder of initiating or maintaining sleep Baldness Alopecia, unspecified documented in this encounter Care Teams Metal Fabricator Apprentice Relationship Specialty Start Date End Date Michelle Shannon MD [address] [place] [phone] PCP - General 09/08/11 documented as of this encounter
--- OUTSIDE RECORDS SUMMARY | 2024-04-28 15:55 | XMS_ITS | Encounter Summary ---
Author Organization [facility] Address [address] [place] [address] Care Team Providers Care Tape Making Machine Operator Name Role Phone Michelle Shannon MD Primary Care Provider + Reason for Visit * Reason Onset Date Comments Medications Refill 04/01/2020 Encounter Details Date Type Department Care Team (Late st Contact Info) Description 04/01/2020 Refill Benito Crowley MD, [facility] [address] [place], [place] [phone] Chanel Mac RN Medications Refill Social History [...] Take one capsule at 4pm 30 Cap 04/01/2020 05/05/2020 documented in this encounter Miscellaneous Notes * Telephone Encounter - Chanel Mac RN - 04/01/2020 1128 EDT Pt called to get refill on adderall 10 mg .CHANEL MAC RN documented in this encounter Plan of Treatment Upcoming Encounters Date Type Department Care Team (Late st Contact Info) Description 06/08/2024 13:30 EDT Office Visit [facility] [address] [place], [place] [phone] Michelle Shannon MD [address] [place] [phone] documented as of this encounter Visit Diagnoses Not on filedocumented in this encounter Discontinued Medications Medication Sig Discontinue Reason Start Date End Da te dextroamphetamine-amphet amine (ADDERALL XR) 10 mg XR capsule Take one capsule at 4pm Reorder 02/27/2020 04/01/2020 documented as of this encounter Care Teams Tape Making Machine Operator Relationship Specialty Start Date End Date Michelle Shannon MD [address] [place] [phone] PCP - General 09/08/11 documented as of this encounter
--- OUTSIDE RECORDS SUMMARY | 2024-04-28 15:56 | XMS_ITS | Encounter Summary ---
Author Organization [facility] Address [address] [place] [address] Care Team Providers Care Respiratory Practitioner Name Role Phone Michelle Shannon MD Primary Care Provider + Reason for Visit * Reason Onset Date Comments Medications Refill 10/11/2018 Encounter Details Date Type Department Care Team (Late st Contact Info) Description 10/11/2018 Refill [facility] [address] [place] [phone] Chanel Mac RN Medications Refill Social History [...] Cap by mouth daily. 90 Cap 1 10/11/2018 05/21/2019 dextroamphetamine-ampheta mine (ADDERALL XR) 20 mg XR capsule Take 1 Cap by mouth daily. Every morning Daily Max: 1 Cap 30 Cap 10/11/2018 11/17/2018 documented in this encounter Miscellaneous Notes * Telephone Encounter - Chanel Mac RN - 10/11/2018 1648 EST Pt requesting multiple medications.Chanel Mac RN documented in this encounter Plan of Treatment Upcoming Encounters Date Type Department Care Team (Late st Contact Info) Description 06/08/2024 13:30 EDT Office Visit [facility] [address] [place], [place] [phone] Michelle Shannon MD [address] [place] [phone] documented as of this encounter Visit Diagnoses Not on filedocumented in this encounter Discontinued Medications Medication Sig Discontinue Reason Start Date End Da te dextroamphetamine-amphet amine (ADDERALL XR) 20 mg XR capsule Take 1 Cap by mouth daily. Every morning Daily Max: 1 Cap Reorder 09/06/2018 10/11/2018 DULoxetine (CYMBALTA) 60 mg capsule Take 1 Cap by mouth daily. Reorder 06/06/2018 10/11/2018 documented as of this encounter Care Teams Respiratory Practitioner Relationship Specialty Start Date End Date Michelle Shannon MD [address] [place] [phone] PCP - General 09/08/11 documented as of this encounter
--- OUTSIDE RECORDS SUMMARY | 2024-04-28 15:56 | XMS_ITS | Encounter Summary ---
Author Organization [facility] Address [address] [place] [address] Care Team Providers Care Tire Rebuilder Name Role Phone Michelle Shannon MD Primary Care Provider + Reason for Referral * Radiology Services (Routine/Next Available) - Closed Specialty Diagnoses / Procedures Referred By Thelma long Referred To Contact Diagnoses Chronic right shoulder pain Procedures [facility] US SHOULDER Ruslan García MD [address] [place] [phone] Referral ID Status Reason Start Date Expiration Date Visits Re quested Visits Authorized [id number] Closed 01/03/2019 1 1 Encounter Details Date Type Department Care Team (Late st Contact Info) Description 01/03/2019 Orders Only [facility] - [address] [place] [address] Ruslan García MD [address] [place] [phone] Chronic right shoulder pain (Primary Dx) [...] Info) Description 06/08/2024 13:30 EDT Office Visit [facility] [address] [place] [address] Michelle Shannon MD [address] [place] [phone] documented as of this encounter Procedures Procedure Name Priority Date/Time Associated Diagnosis Comments MSK US SHOULDER Routine 01/03/2019 8:40 EDT Chronic right shoulder pain documented in this encounter Results * MSK US SHOULDER (01/03/2019 8:40 EDT) Anatomical Region Laterality Modality Other 01/03/2019 8:40 EDT Narrative 01/03/2019 8:40 EDT Non Reportable Exam Procedure Note QUICK MIXER OPERATOR, IMAGING - 01/11/2019 Non Reportable Exam Ruslan García MD IMG US ORDERABLES documented in this encounter Visit Diagnoses Diagnosis Chronic right shoulder pain- Primary Pain in joint, shoulder region documented in this encounter Care Teams Tire Rebuilder Relationship Specialty Start Date End Date Michelle Shannon MD [address] [place] [phone] PCP - General 09/08/11 documented as of this encounter
--- OUTSIDE RECORDS SUMMARY | 2024-04-28 15:56 | XMS_ITS | Encounter Summary ---
Author Organization [facility] Address [address] [place] [address] Care Team Providers Care Pre Press Proofer Name Role Phone Michelle Shannon MD Primary Care Provider + Encounter Details Date Type Department Care Team (Latest Contact Info) Description 04/20/2019 10:36 EDT - 04/20/2019 23:59 EDT Hospital Encounter [address] [address] Michelle Shannon MD [address] [place] [phone] Discharge Disposition: Home or Self Care Social [...] :06 EDT documented as of this encounter Discharge Diagnoses Diagnosis Z83.49 Family history of other endocrine, nutritional and metabolic diseases-Z83.49[ICD-10-CM] E55.9 Vitamin D deficiency, unspecified-E55.9[ICD-10-CM] documented in this encounter Medications at Time [...] Take 1 Tab by mouth at bedtime. 30 Tab 2 04/20/2019 05/15/2019 Azelaic Acid (FINACEA) 15 % gel Apply topically 2 times daily. 02/06/2021 calcium-vitamin D (OS-NOEMY D) 500 mg(1,250mg) -200 unit per tabletIndications:MDD (major depressive disorder), recurrent episode, moderate (HCC-CMS) Take 1 Tab by mouth 2 times daily with breakfast and dinner. 60 Tab 0 08/20/2014 11/19/2019 clonazePAM (KLONOPIN) 1 mg tablet Take 1 Tab by mouth at bedtime. Daily Max: 1 mg 28 Tab 2 04/06/2019 07/30/2019 dextroamphetamine-amph etamine (ADDERALL XR) 10 mg XR capsule Take one capsule at 4pm 30 Cap 04/20/2019 08/02/2019 dextroamphetamine-amph etamine (ADDERALL XR) 20 mg XR capsule Take 1 Cap by mouth 2 times daily. Daily Max: 2 Caps 60 Cap 04/20/2019 05/21/2019 DULoxetine (CYMBALTA) 60 mg capsule Take 1 Cap by mouth daily. 90 Cap 1 10/11/2018 05/21/2019 fluticasone (FLONASE) 50 mcg/actuation nasal spray Instill 2 Sprays into both nostrils daily. 16 g 07/18/2017 12/23/2019 IBUPROFEN (ADVIL ORAL) Take by mouth daily as needed. 05/19/2023 loratadine (CLARITIN) 10 mg tablet Take 1 Tab by mouth daily. 100 Tab 1 09/16/2017 10/07/2021 melatonin 10 mg capsule Take by mouth. 05/06/2021 naratriptan (AMERGE) 2.5 mg tabletIndications:migr stefan Take as directed. Indications: MIGRAINE 12 Tab 11 03/24/2012 02/06/2021 pantoprazole (PROTONIX) 40 mg tablet Take 1 Tab by mouth daily. 90 Tab 1 04/20/2019 07/30/2019 topiramate (TOPAMAX) 50 mg tablet take 1 tablet by mouth twice a day 180 Tab 1 10/27/2018 12/23/2019 documented as of this encounter Discharge Disposition Disposition Code Departure Means Destination Home or Self Care documented in this encounter Plan of Treatment Upcoming Encounters Date Type Department Care Team (Late st Contact Info) Description 06/08/2024 13:30 EDT Office Visit [facility] [address] [place] [address] Michelle Shannon MD [address] [place] [phone] documented as of this encounter Visit Diagnoses Not on filedocumented in this encounter Care Teams Pre Press Proofer Relationship Specialty Start Date End Date Michelle Shannon MD [address] [place] [phone] PCP - General 09/08/11 documented as of this encounter
--- OUTSIDE RECORDS SUMMARY | 2024-04-28 15:56 | XMS_ITS | Encounter Summary ---
Author Organization [facility] Address [address] [place] [address] Care Team Providers Care Roll Contour Grinder Name Role Phone Michelle Shannon MD Primary Care Provider + Reason for Visit * Reason Onset Date Comments Medications Refill 10/11/2018 Encounter Details Date Type Department Care Team (Late st Contact Info) Description 10/11/2018 Refill [facility] [address] [place], [place] [phone] Chanel Mac RN Medications Refill Social History [...] Encounter - Chanel Mac RN - 10/11/2018 1638 EST Pt requesting refill on Clonazepam 1 mg q hs. Last refill 08/30/2018. Last office visit 06/06/2018.Chanel Mac RN documented in this encounter Plan of Treatment Upcoming Encounters Date Type Department Care Team (Late st Contact Info) Description 06/08/2024 13:30 EDT Office Visit [facility] [address] [place] [address] Michelle Shannon MD [address] [place] [phone] documented as of this encounter Visit Diagnoses Not on filedocumented in this encounter Care Teams Roll Contour Grinder Relationship Specialty Start Date End Date Michelle Shannon MD [address] [place] [phone] PCP - General 09/08/11 documented as of this encounter
--- OUTSIDE RECORDS SUMMARY | 2024-04-28 15:56 | XMS_ITS | Encounter Summary ---
Author Organization [facility] Address [address] [place] [address] Care Team Providers Care Asphalt Tile Floor Layer Name Role Phone Michelle Shannon MD Primary Care Provider + Encounter Details Date Type Department Care Team (Late st Contact Info) Description 04/10/2019 Results Only Imaging [facility] [phone] Chela Ta MD [address] [place] [address] [address] [place] [phone] Social History Tobacco Use Types Packs/Day Years [...] Info) Description 06/08/2024 13:30 EDT Office Visit [facility], [address] [facility] [address] [place] [address] Michelle Shannon MD [address] [place] [phone] documented as of this encounter Procedures Procedure Name Priority Date/Time Associated Diagnosis Comments MR BREAST BILATERAL W/WO CONTRAST 04/10/2019 8:19 EDT documented in this encounter Results * MR BREAST BILATERAL W/WO CONTRAST (04/10/2019 8:19 EDT) Anatomical Region Laterality Modality Other 04/10/2019 8:19 EDT 04/10/2019 16:15 EDT Narrative 04/10/2019 16:15 EDT MR BREAST BILATERAL W/WO CONTRAST ??04/10/2019 8:19 AM Signs and Symptoms/Comments: High risk > 20% lifetime risk F/R 2 nodules Comparison: Prior map mammography performed outside, most recently in October 2017. Comparison is also made to prior MRI in July 2018 and in January 2018. Technique: ?? The patient was placed in a dedicated breast coil in the prone position and scanned on the 3 Alana scanner. ??All images were obtained axially. ??Initially, T1-weighted fcb-loz-mesvekaryx images were obtained followed by T2-weighted images. ??Dynamic high temporal resolution and high spatial resolution T1-weighted fat-suppressed images were then obtained, first pregadolinium, followed by four sets of images after gadolinium was administered intravenously. ??7.5 cc of Gadavist was administered. The images were reviewed on a PACS workstation and independent [employer] workstation with and without subtraction. ??3D reconstructions were obtained in coronal, sagittal and MIP projections. ? Right breast findings: There is heterogeneous breast tissue and marked background parenchymal enhancement. There are no enhancing findings of concern in the right breast on the current study. Overall, the appearance is stable from prior imaging. Left breast findings: There is heterogeneous breast breast tissue and marked background parenchymal enhancement. A clip varner the site of a biopsy performed in the lateral aspect of the left breast. Per the outside report, this demonstrated multiple benign pathologies and a complex sclerosing lesion. A clip varner the biopsy site. There is enhancement at the biopsy site which appears stable over the last two MRI examinations. There is a small enhancing oval mass at 12 o'clock, stable for fifteen months. There are no enhancing findings of concern. Impression right breast: Negative, BI-RADS Category 1. Impression left breast: Benign, BI-RADS Category 2. Recommendation: 1. Annual screening mammography is recommended at this time. This was due in October 2018 and I do not believe it has yet been performed. 2. If this patient's calculated lifetime risk of breast cancer is greater than 20%, then according to the [employer] guidelines, annual MRI screening is recommended in addition to mammography. Overall assessment: BI-RADS Category Assessment 2: Benign Findings. The patient will be notified of the MRI results by telephone call from a member of the radiology department. In addition, she will receive a lay letter from radiology. Procedure Note Susana Lake MD, MD - 04/10/2019 MR BREAST BILATERAL W/WO CONTRAST 04/10/2019 8:19 AM Signs and Symptoms/Comments: High risk > 20% lifetime risk F/R 2 nodules Comparison: Prior map mammography performed outside, most recently in October 2017. Comparison is also made to prior MRI in July 2018 and in January 2018. Technique: The patient was placed in a dedicated breast coil in the prone position and scanned on the 3 Alana scanner. All images were obtained axially. Initially, T1-weighted ick-nmg-iuywfwfwsc images were obtained followed by T2-weighted images. Dynamic high temporal resolution and high spatial resolution T1-weighted fat-suppressed images were then obtained, first pregadolinium, followed by four sets of images after gadolinium was administered intravenously. 7.5 cc of Gadavist was administered. The images were reviewed on a PACS workstation and independent [employer] workstation with and without subtraction. 3D reconstructions were obtained in coronal, sagittal and MIP projections. Right breast findings: There is heterogeneous breast tissue and marked background parenchymal enhancement. There are no enhancing findings of concern in the right breast on the current study. Overall, the appearance is stable from prior imaging. Left breast findings: There is heterogeneous breast breast tissue and marked background parenchymal enhancement. A clip varner the site of a biopsy performed in the lateral aspect of the left breast. Per the outside report, this demonstrated multiple benign pathologies and a complex sclerosing lesion. A clip varner the biopsy site. There is enhancement at the biopsy site which appears stable over the last two MRI examinations. There is a small enhancing oval mass at 12 o'clock, stable for fifteen months. There are no enhancing findings of concern. Impression right breast: Negative, BI-RADS Category 1. Impression left breast: Benign, BI-RADS Category 2. Recommendation: 1. Annual screening mammography is recommended at this time. This was due in October 2018 and I do not believe it has yet been performed. 2. If this patient's calculated lifetime risk of breast cancer is greater than 20%, then according to the [employer] guidelines, annual MRI screening is recommended in addition to mammography. Overall assessment: BI-RADS Category Assessment 2: Benign Findings. The patient will be notified of the MRI results by telephone call from a member of the radiology department. In addition, she will receive a lay letter from radiology. Chela Ta MD IMG MRI ORDERABLES documented in this encounter Visit Diagnoses Not on filedocumented in this encounter Care Teams Asphalt Tile Floor Layer Relationship Specialty Start Date End Date Michelle Shannon MD [address] [place] [phone] PCP - General 09/08/11 documented as of this encounter
--- OUTSIDE RECORDS SUMMARY | 2024-04-28 15:56 | XMS_ITS | Encounter Summary ---
Author Organization [facility] Address [address] [place] [address] Care Team Providers Care Individual Pension Consultant Name Role Phone Michelle Shannon MD Primary Care Provider + Reason for Visit * Reason Comments Shoulder Pain RT SHOULDER NO DOI/D OS * Consult (Routine) - Closed Specialty Diagnoses / Procedures Referred By Thelma long Referred To Contact Orthopedic Surgery Diagnoses Impingement syndrome of right shoulder Michelle Shannon MD [address] [place] [phone] Ruslan García MD [address] [place] [phone] Referral ID Status Reason Start Date Expiration Date V isits Requested Visits Authorized [id number] Closed Specialty Services Required 10/26/2018 1 1 Encounter Details Date Type Department Care Team (Late st Contact Info) Description 12/04/2018 13:30 EDT Office Visit [facility] - [address] [address] Ruslan García MD [address] [place] [phone] Impingement syndrome of right shoulder (Primary Dx) Discharge Disposition: Auto Discharge Social History Tobacco Use Types Packs/Day Years [...] - Inhaled Oxygen Concentration - - Weight 79.4 kg (175 lb) 12/04/2018 1342 EDT Height 165.1 cm (5' 5) 12/04/2018 1342 EDT Body Mass Index 29.12 12/04/2018 1342 EDT documented in this encounter Discharge Diagnoses Diagnosis M75.41 Impingement syndrome of right shoulder-M75.41[ICD-10-CM] documented in this encounter Discharge Disposition Disposition Code Departure Means Destination Auto Discharge documented in this encounter Progress Notes * Ruslan García MD - 12/04/2018 1330 EDT Chief Complaint Patient presents with ??? Shoulder Pain RT SHOULDER NO DOI/DOS Jane Blair is seen in consultation at the request of Michelle Shannon MD for evaluation of right shoulder pain. SUBJECTIVE: Jane Blair is a 43 y.o. right hand dominant female who presents to the office with about a monthand a half history of insidious onset right shoulder pain. No injury. She points to the front and side of the shoulder. Sometimes goes to the back of the shoulder. Also makes her fingers tingle. More pain with ADLs. Putting hair up. Raising arm overhead. She has lost motion but can move the shoulder if she needs to. She has gone to PT. [place]. Didn't really help. She took advil that helped a little. SANE score is 0%. 10 out of 10 pain. Past Medical History: Diagnosis Date ??? Hearing difficulty ??? Unspecified cerebral artery occlusion with cerebral infarction ??? Vasovagal syncope Patient Active Problem List Diagnosis ??? Narcolepsy without cataplexy ??? REM sleep behavior disorder ??? Migraine with aura ??? Episodic mood disorder (HCC-CMS) ??? MDD (major depressive disorder), recurrent episode, moderate (HCC-CMS) ??? GERD without esophagitis ??? Vitamin D deficiency ??? Allergic rhinitis Past Surgical History: Procedure Laterality Date ??? BREAST BIOPSY Current Outpatient Medications Medication Sig Dispense Refill ??? albuterol 90 mcg/actuation inhaler Inhale 1-2 Puffs as directed every 6 hours as needed (shortness of breath). Or 15-30 minutes prior to exercise 1 Inhaler 0 ??? ARIPiprazole (ABILIFY) 10 mg tablet Take 1 tablet by mouth at bedtime. 30 tablet 2 ??? vypdixf-vsltvcwxdbamy-fodksmrj (EXCEDRIN MIGRAINE) 250-250-65 mg per tablet Take [...] Daily Max: 1 mg 28 Tab 2 ??? dextroamphetamine-amphetamine (ADDERALL XR) 10 mg XR capsule Take 1 Cap by mouth 2 times daily.Noon and 4pm Daily Max: 20 mg 60 Cap 0 ??? dextroamphetamine-amphetamine (ADDERALL XR) 20 mg XR capsule Take 1 Cap by mouth daily. Every morning Daily Max: 1 Cap 30 Cap 0 ??? DULoxetine (CYMBALTA) 60 mg [...] 180 Tab 1 No current facility-administered medications for this visit. No Known Allergies Social history: She is on disability; nonsmoker ROS: A 12 system comprehensive review of systems was documented in the intake form all of which is negative except asthma, sob, shoulder pain/stiffness, headaches, stroke. OBJECTIVE: Ht 165.1 cm (65) Wt 79.4 kg (175 lb) BMI 29.12 kg/m?? General: awake, alert, NAD, pleasant EENT: extraocular motion grossly intact Pulmonary: normal respirations, non-labored breathing Psych: normal affect, thoughts are logical and sequential Examination of right shoulder: Inspection: no ecchymosis, no erythema, no deformity, no atrophy, no scars noted. Palpation: no tenderness over the glenohumeral joint, no tenderness in bicipital groove, no tenderness over the supraspinatus insertion, no tenderness over AC joint, no tenderness over coracoid process. Range of motion: 150 degrees forward elevation. 120 degrees abduction. 45 degrees ER at 0 degrees abduction, 80 degrees ER at 90 degrees abduction, IR to L1 vs L1 Strength testin/5 motor in empty can/scaption with tenderness, 5/5 motor in resisted external rotation. 5/5 motor on subscapular lift off test. Impingement testing: positive Olson, positive Neers Special tests: No increased anterior or posterior translation on load shift testing. neg sulcus sign. Distal neurovascular exam intact. DIAGNOSTIC DATA: Plain films taken previously and independently reviewed by me including true AP, axillary and outlet views of right shoulder reveal mild AC joint degenerative changes. No degenerative changes to the glenohumeral joint. ASSESSMENT: Right shoulder impingement syndrome. A combination of rotator cuff tendinitis and subacromial bursitis is noted. PLAN: Patient's diagnosis, plain films and treatment options were discussed at length. Patient education with home exercises were demonstrated. Theraband given. Physical therapy was discussed as well to focus on rotator cuff and scapular stabilizer stretching and strengthening. Postural training will be addressed. Activity modification, ice and OTC medications were recommended as well. Minimize overhead and repetitive use. No heavy lifting. Subacromial injection of corticosteroid were also discussed today. We have decided to schedule her for an US guided right subacromial. Follow up in several weeks. The patient verbalized understanding of the above and agreed with this plan. All of her questions were answered to her satisfaction today. 40 minutes of face to face time was spent with the patient, 25 minutes were spent on counseling andcoordination of care of the patient's right shoulder pain. I would like to thank Michelle Shannon MD for this kind referral. I will keep you up to date on Jane Blair's progress. Ruslan García M.D. 12/04/2018 15:09 Cc: Michelle Shannon MD documented in this encounter Plan of Treatment Upcoming Encounters Date Type Department Care Team (Late st Contact Info) Description 06/08/2024 13:30 EDT Office Visit [facility] [address] [facility] [address] [place] [address] Michelle Shannon MD [address] [place] [phone] documented as of this encounter Visit Diagnoses Diagnosis Impingement syndrome of right shoulder- Primary Other affections of shoulder region, not elsewhere classified documented in this encounter Care Teams Individual Pension Consultant Relationship Specialty Start Date End Date Michelle Shannon MD [address] [place] [phone] PCP - General 09/08/11 documented as of this encounter
--- OUTSIDE RECORDS SUMMARY | 2024-04-28 15:56 | XMS_ITS | Encounter Summary ---
Author Organization [facility] Address [address] [place] [address] Care Team Providers Care Regulator Pin Inserter Name Role Phone Michelle Shannon MD Primary Care Provider + Reason for Referral * Consult (Routine) - Closed Specialty Diagnoses / Procedures Referred By Contac t Referred To Contact Orthopedic Surgery Diagnoses Rotator cuff impingement syndrome of right shoulder Michelle Shannon MD [address] [place] [phone] [facility] [place] [address] [place] [address] Referral ID Status Reason Start Date Expiration Date V isits Requested Visits Authorized [id number] Closed Specialty Services Required 04/20/2019 1 1 Question Answer Reason for Request: Right shoulder impingement syndrome * PT/OT/ST (Routine) - New Request Specialty Diagnoses / Procedures Referred By Contac t Referred To Contact Diagnoses Rotator cuff impingement syndrome of right shoulder Michelle Shannon MD [address] [place] [phone] Referral ID Status Reason Start Date Expiration Date Visits Requested Visits Authorized [id number] New Request Specialty Services Required 04/20/2019 1 1 Question Answer Reason for Request: Right shoulder pain Date of Onset or Injury: 2 year Comments Right shoulder impingement syndrome wih rotator cuff tendinitis and subacromial bursitis Rotator cuff and scapular stabilizer stretching and strengthening. Postural training FAX to [facility] Reason for Visit * Reason Comments Medication Management No new concerns. Encounter Details Date Type Department Care Team (Late st Contact Info) Description 04/20/2019 10:00 EDT Office Visit [facility] [address] [place] [phone] Michelle Shannon MD [address] [place] [phone] Rotator cuff impingement syndrome of right shoulder (Primary Dx); Family history of hemochromatosis; Vitamin D deficiency; MDD (major depressive disorder), recurrent episode, moderate (HCC-CMS); REM sleep behavior disorder; GERD without esophagitis [...] Sign Reading Time Taken Comments Blood Pressure 96/60 04/20/2019 1013 EDT Pulse 100 04/20/2019 1013 EDT Temperature 36.9 ??C (98.4 ??F) 04/20/2019 1013 EDT Respiratory Rate - - Oxygen Saturation 98% 04/20/2019 1013 EDT Inhaled Oxygen Concentration - - Weight 81.5 kg (179 lb 9.6 oz) 04/20/2019 1013 E DT Height - - Body Mass Index 29.89 02/02/2019 1038 EDT documented in this encounter Ordered Prescriptions Prescription Sig Dispensed Refills Start Date End Da te dextroamphetamine-ampheta mine (ADDERALL XR) 10 mg XR capsule Take one capsule at 4pm 30 Cap 04/20/2019 08/02/2019 pantoprazole (PROTONIX) 40 mg tablet Take 1 Tab by mouth daily. 90 Tab 1 04/20/2019 07/30/2019 dextroamphetamine-ampheta mine (ADDERALL XR) 20 mg XR capsule Take 1 Cap by mouth 2 times daily. Daily Max: 2 Caps 60 Cap 04/20/2019 05/21/2019 ARIPiprazole (ABILIFY) 10 mg tablet Take 1 Tab by mouth at bedtime. 30 Tab 2 04/20/2019 05/15/2019 documented in this encounter Progress Notes * Michelle Shannon MD - 04/20/2019 1000 EDT Subjective: Patient ID: Jane Blair is an 43 y.o. female. Chief Complaint Patient presents with ??? Medication Management No new concerns. HPI Jane is here for routine f/u. Her right great toenail is thickended and feels like it is going to come off. She has f/u with podiatry. Mood is anxious, but just started a new job. She is still sleeping excessively, at least 10 hours aday. Fortunately, she is not missing as much medication doses due to over sleeping. She is taking Abilify and Duloxetine and Adderall. Meets with her therapist every other week. Hopes to increase to weekly visits when therapist has more opening. In the meantime, she is meeting with [facility] (commoity rehab therapist on off weeks. Hope to start DBT in [facility] when the next cohort begins. 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 Started yesterday and was really exhausted after the first day, but stress may play a role until I get used to things. She is not trying to take any classes this semester. Skin over the right elbowis very dry. Using a moisturizer and Bag [place]. Pain in the right shoulder is beginning to re-occur after last shot 3 months ago. Had to stop PT inthe past due to expense. . The pain began gradually about 1 year ago. She is not taking medication for this. Has trouble reaching back and reaching overhead. Patient Active Problem List Diagnosis ??? Narcolepsy [...] prior to exercise 1 Inhaler 0 ??? gelrfei-ghpmreyxewbjb-qlbxaonu (EXCEDRIN MIGRAINE) 250-250-65 mg per tablet Take [...] Max: 1 mg 28 Tab 2 ??? DULoxetine (CYMBALTA) 60 mg capsule Take [...] directed. Indications: MIGRAINE 12 Tab 11 ??? topiramate (TOPAMAX) 50 mg tablet take [...] is nervous/anxious and has insomnia. Objective: BP 96/60 Pulse 100 Temp 36.9 ??C (98.4 ??F) (Tympanic) Wt 81.5 kg (179 lb 9.6 oz) SpO2 98% BMI 29.89 kg/m?? Physical Exam Constitutional: She appears well-developed and well-nourished. No distress. l Cardiovascular: Normal rate, regular rhythm, Skin: Evidence of skin picking on face, but less than previously Musculoskeletal: Right shoulder- Tender AC joint. Pain with forward flexion, abduction and internalrotation with limited ROM in all directions Psychiatric: Her mood appears anxious. Her speech is rapid and/or pressured. She is not agitated, not hyperactive and not withdrawn. She does not exhibit a depressed mood. Pt is mildly forgetful. Assessment: Plan: Jane was seen today for medication management. Diagnoses and all orders for this visit: Rotator cuff impingement syndrome of right shoulder - AMB CONS/FOLLOW UP PHYSICAL THERAPY - AMB CONS/FOLLOW UP ORTHOPEDICS Family history of hemochromatosis - COMPREHENSIVE METABOLIC PANEL (CMP) - FERRITIN Vitamin D deficiency - VITAMIN D (25,[place]) MDD (major depressive disorder), recurrent episode, moderate ([facility]) REM sleep behavior disorder Other orders - ARIPiprazole (ABILIFY) 10 mg tablet; Take 1 Tab by mouth at bedtime. - dextroamphetamine-amphetamine (ADDERALL XR) 20 mg XR capsule; Take 1 Cap by mouth 2 times daily. Daily Max: 2 Caps - pantoprazole (PROTONIX) 40 mg tablet; Take 1 Tab by mouth daily. - dextroamphetamine-amphetamine (ADDERALL XR) 10 mg XR capsule; Take one capsule at 4pm Narcolepsy and REM sleep disorder- stable Continue Adderall during the day and Clonazepam at night Taking Adderall 20mg bid and the 10mg in the evening Major depressive disorder - stable Continue duloxetine and Abilify She is working with her counselor to move to weekly appts [facility] Continue working with [facility] FH hemachromatosis- chech Ferritin level and LFTs today Right shoulder impingement syndrome wih rotator cuff tendinitis and subacromial bursitis Refer back to ortho, Dr. García for repeat subacromial injection Reviewed Dr. García's past recommendations with Jane Consider restarting PT, but $20 per visit. She will pursue this if she keeps working. Script provided Elbow- Dry skin Continue Bag balm under occlusion Consider topical steroid ?? Goals None Michelle Shannon MD documented in this encounter Plan of Treatment Upcoming Encounters Date Type Department Care Team (Late st Contact Info) Description 06/08/2024 13:30 EDT Office Visit [facility] [address] [place] [address] Michelle Shannon MD [address] [place] [phone] Scheduled Referrals Name Type Priority Associated Diagnoses Orde r Schedule AMB CONS/FOLLOW UP PHYSICAL THERAPY Outpatient Referral Routine Rotator cuff impingement syndrome of right shoulder Ordered: 04/20/2019 AMB CONS/FOLLOW UP ORTHOPEDICS Outpatient Referral Routine Rotator cuff impingement syndrome of right shoulder Ordered: 04/20/2019 documented as of this encounter Procedures Procedure Name Priority Date/Time Associated Diagnosis Comments VITAMIN D (25,[place]) Routine 04/20/2019 10: 48 EDT Vitamin D deficiency FERRITIN Routine 04/20/2019 10:48 EDT Family history of hemochromatosis COMPREHENSIVE METABOLIC PANEL (CMP) Routine 04/20/2019 10:48 EDT Family history of hemochromatosis documented in this encounter Results * VITAMIN D (25,OH) (04/20/2019 10:48 EDT) 25OH Vitamin D Tot 42.0 30 - 100 ng/ml 04/20/2019 14:22 EDT [facility] Comment: Reference Range: Deficient = <10 ng/ml Insufficient = 10-30 ng/ml Sufficient = 30-100 ng/ml Toxic = >100 ng/ml Blood specimen (specimen) BLOOD SPECIMEN / Unknown 04/20/2019 10:48 EDT 04/20/2019 12:00 EDT Michelle Shannon MD CHEMISTRY & BLOO D GAS ORDERABLES Performing Organization Address City/[facility]/ZIP Co de Phone Number [facility] [address] [place] [address] * FERRITIN (04/20/2019 10:48 EDT) Ferritin 15 10 - 291 ng/ml 04/20/2019 14:30 EDT [facility] Blood specimen (specimen) BLOOD SPECIMEN / Unknown 04/20/2019 10:48 EDT 04/20/2019 12:00 EDT Michelle Shannon MD CHEMISTRY & BLOO D GAS ORDERABLES Performing Organization Address City/[facility]/ZIP Co de Phone Number [facility] [address] [place] [address] * (ABNORMAL) COMPREHENSIVE METABOLIC PANEL (CMP) (04/20/2019 10:48 EDT) Potassium 4.8 3.5 - 5.0 mEq/L 04/20/2019 12:39 EDT [facility] Sodium 141 136 - 145 mEq/L 04/20/2019 12:39 EDT [facility] Chloride 110 96 - 110 mEq/L 04/20/2019 12:39 EDT [facility] CO2 21(L) 22 - 32 mEq/L 04/20/2019 12:39 EDT [facility] Total Alkaline Phosphatase 73 38 - 126 U/L 04/20/2019 12:39 [facility] Bilirubin, Total 0.6 <1.4 mg/dl 04/20/20 19 12:39 [facility] AST 17 15 - 46 U/L 04/20/2019 12:39 [facility] ALT 24 <53 U/L 04/20/2019 12:39 [facility] Albumin 4.2 3.4 - 4.9 g/dl 04/20/2019 12:39 [facility] Total Protein 7.1 6.3 - 8.2 g/dl 04/20/2019 12:39 [facility] Creatinine 0.94 0.52 - 1.04 mg/dl 04/20/2019 12:39 [facility] GFR, Calculated 74 >60 ml/min/1.7 3m2 04/20/2019 12:39 [facility] Comment: eGFR calculated using CKD-EPI equation for non Americans. Multiply eGFR by 1.16 for Americans. BUN 18 10 - 26 mg/dl 04/20/2019 12:39 [facility] Calcium 9.7 8.5 - 10.5 mg/dl 04/20/2019 12:39 [facility] Calculated Calcium 9.5 8.5 - 10.5 mg/dl 04/20/2019 12:39 [facility] Glucose, Serum 93 70 - 100 mg/dl 04/20/2019 12:39 [facility] Fasting? Unknown 04/20/2019 12:00 [facility] Blood specimen (specimen) BLOOD SPECIMEN / Unknown 04/20/2019 10:48 EDT 04/20/2019 12:00 EDT Michelle Shannon MD CHEMISTRY & BLOO D GAS ORDERABLES [facility] [address] [place] [address] documented in this encounter Visit Diagnoses Diagnosis Rotator cuff impingement syndrome of right shoulder- Primary Family history of hemochromatosis Family history of other endocrine and metabolic diseases Vitamin D deficiency Unspecified vitamin D deficiency MDD (major depressive disorder), recurrent episode, moderate ([facility]) Major depressive disorder, recurrent episode, moderate REM sleep behavior disorder GERD without esophagitis Esophageal reflux documented in this encounter Discontinued Medications Medication Sig Discontinue Reason Start Date End Da te ARIPiprazole (ABILIFY) 10 mg tablet Take 1 Tab by mouth at bedtime. Reorder 03/20/2019 04/20/2019 dextroamphetamine-amphet amine (ADDERALL XR) 20 mg XR capsule Take 1 Cap by mouth 2 times daily. Daily Max: 2 Caps Reorder 03/08/2019 04/20/2019 pantoprazole (PROTONIX) 40 mg tablet Take 1 Tab by mouth daily. Reorder 10/02/2018 04/20/2019 dextroamphetamine-amphet amine (ADDERALL XR) 10 mg XR capsule Take one capsule at 4pm Reorder 01/20/2019 04/20/2019 documented as of this encounter Care Teams Regulator Pin Inserter Relationship Specialty Start Date End Date Michelle Shannon MD [address] [place] [phone] PCP - General 09/08/11 documented as of this encounter
--- OUTSIDE RECORDS SUMMARY | 2024-04-28 15:56 | XMS_ITS | Encounter Summary ---
Author Organization [facility] Address [address] [place] [address] Care Team Providers Care Rural Sociologist Name Role Phone Michelle Shannon MD Primary Care Provider + Reason for Visit * Reason Onset Date Comments Medications Refill 05/15/2019 Encounter Details Date Type Department Care Team (Late st Contact Info) Description 05/15/2019 Refill [facility] [address] [place], [place] [phone] Taryn Andrews RN [address] [place] [phone] Medications Refill Social History Tobacco [...] by mouth at bedtime. 90 Tab 2 05/15/2019 07/30/2019 documented in this encounter Miscellaneous Notes * Telephone Encounter - Taryn Andrews, JOSEFINA - 05/15/2019 1319 EDT Pt requested #90 day supply of her medication. Request came directly from her pharmacy. Ordered with this quantity. TARYN ANDREWS, RN documented in this encounter Plan of Treatment Upcoming Encounters Date Type Department Care Team (Late st Contact Info) Description 06/08/2024 13:30 EDT Office Visit [facility] [address] [place], [place] [phone] Michelle Shannon MD [address] [place] [phone] documented as of this encounter Visit Diagnoses Not on filedocumented in this encounter Discontinued Medications Medication Sig Discontinue Reason Start Date End Da te ARIPiprazole (ABILIFY) 10 mg tablet Take 1 Tab by mouth at bedtime. Reorder 04/20/2019 05/15/2019 documented as of this encounter Care Teams Rural Sociologist Relationship Specialty Start Date End Date Michelle Shannon MD [address] [place] [phone] PCP - General 09/08/11 documented as of this encounter
--- OUTSIDE RECORDS SUMMARY | 2024-04-28 15:56 | XMS_ITS | Encounter Summary ---
Author Organization [facility] Address [address] [place] [address] Care Team Providers Care Research Study Assistant Name Role Phone Michelle Shannon MD Primary Care Provider + Reason for Visit * Reason Onset Date Comments Medications Refill 03/08/2019 Encounter Details Date Type Department Care Team (Late st Contact Info) Description 03/08/2019 Refill [facility] [address] [place] [address] Michelle Shannon MD [address] [place] [phone] Medications Refill Social History Tobacco Use [...] daily. Daily Max: 2 Caps 60 Cap 03/08/2019 04/20/2019 documented in this encounter Miscellaneous Notes * Telephone Encounter - Connor Arrington RN - 03/08/2019 1055 EDT Pt requesting refill of Adderrall XR 20 mg, 1 cap BID. Last filled 01/18/19 for 60 caps. Last officevisit 01/18/19. Preferred pharmacy is [facility]. To Dr. Shannon. CONNOR ARRINGTON, RN documented in this encounter Plan of Treatment Upcoming Encounters Date Type Department Care Team (Late st Contact Info) Description 06/08/2024 13:30 EDT Office Visit [facility] [address] [place], [place] [phone] Michelle Shannon MD [address] [place] [phone] documented as of this encounter Visit Diagnoses Not on filedocumented in this encounter Discontinued Medications Medication Sig Discontinue Reason Start Date End Da te dextroamphetamine-amphe tamine (ADDERALL XR) 20 mg XR capsule Take 1 capsule by mouth 2 times daily. Daily Max: 2 capsules Reorder 01/18/2019 03/08/2019 documented as of this encounter Care Teams Research Study Assistant Relationship Specialty Start Date End Date Michelle Shannon MD [address] [place] [phone] PCP - General 09/08/11 documented as of this encounter
--- OUTSIDE RECORDS SUMMARY | 2024-04-28 15:56 | XMS_ITS | Encounter Summary ---
Author Organization [facility] Address [address] [place] [address] Care Team Providers Care Oxyacetylene Torch Operator Name Role Phone Michelle Shannon MD Primary Care Provider + Encounter Details Date Type Department Care Team (Late st Contact Info) Description 08/07/2018 Orders Only [facility] [address] [place] [address] Taryn Salazar RN [address] [place] [phone] Attention deficit hyperactivity disorder (ADHD), unspecified ADHD type (Primary Dx) Social History Tobacco Use Types [...] End Da te dextroamphetamine-amphetam ine (ADDERALL XR) 10 mg XR capsule Take 1 Cap by mouth 2 times daily. Noon and 4pm Daily Max: 20 mg 60 Cap 08/07/2018 10/16/2018 documented in this encounter Progress Notes * Taryn Salazar - 08/07/2018 1422 EST Call from pt requesting Adderall refill. Pended to Dr. Shannon. Taryn Salazar, RN documented in this encounter Plan of Treatment Upcoming Encounters Date Type Department Care Team (Late st Contact Info) Description 06/08/2024 13:30 EDT Office Visit [facility] [address] [place], [place] [phone] Michelle Shannon MD [address] [place] [phone] documented as of this encounter Visit Diagnoses Diagnosis Attention deficit hyperactivity disorder (ADHD), unspecified ADHD type- Primary documented in this encounter Discontinued Medications Medication Sig Discontinue Reason Start Date End Da te dextroamphetamine-ampheta mine (ADDERALL XR) 10 mg XR capsule Take 1 Cap by mouth 2 times daily. Noon and 4pm Daily Max: 20 mg Reorder 05/17/2018 08/07/2018 documented as of this encounter Care Teams Oxyacetylene Torch Operator Relationship Specialty Start Date End Date Michelle Shannon MD [address] [place] [phone] PCP - General 09/08/11 documented as of this encounter
--- OUTSIDE RECORDS SUMMARY | 2024-04-28 15:56 | XMS_ITS | Encounter Summary ---
Author Organization [facility] Address [address] [place] [address] Care Team Providers Care Sausage Wrapper Name Role Phone Michelle Shannon MD Primary Care Provider + Reason for Visit * Reason Onset Date Comments Medications Refill 07/16/2019 Encounter Details Date Type Department Care Team (Late st Contact Info) Description 07/16/2019 Refill [facility] [address] [place] [address] Michelle Shannon MD [address] [place] [phone] Medications Refill Social History Tobacco Use [...] daily. Daily Max: 2 Caps 60 Cap 07/16/2019 08/28/2019 documented in this encounter Miscellaneous Notes * Telephone Encounter - Mandi Leon - 07/16/2019 1043 EDT refill documented in this encounter Plan of Treatment Upcoming Encounters Date Type Department Care Team (Late st Contact Info) Description 06/08/2024 13:30 EDT Office Visit [facility] [address] [place], [place] [phone] Michelle Shannon MD [address] [place] [phone] documented as of this encounter Visit Diagnoses Not on filedocumented in this encounter Discontinued Medications Medication Sig Discontinue Reason Start Date End Da te dextroamphetamine-ampheta mine (ADDERALL XR) 20 mg XR capsule Take 1 Cap by mouth 2 times daily. Daily Max: 2 Caps Reorder 05/21/2019 07/16/2019 documented as of this encounter Care Teams Sausage Wrapper Relationship Specialty Start Date End Date Michelle Shannon MD [address] [place] [phone] PCP - General 09/08/11 documented as of this encounter
--- OUTSIDE RECORDS SUMMARY | 2024-04-28 15:56 | XMS_ITS | Encounter Summary ---
Author Organization [facility] Address [address] [place] [address] Care Team Providers Care Vending Manager Name Role Phone Michelle Shannon MD Primary Care Provider + Reason for Visit * Reason Onset Date Comments Medications Refill 04/06/2019 Encounter Details Date Type Department Care Team (Late st Contact Info) Description 04/06/2019 Orders Only [facility] [address] [place] [phone] Taryn Salazar RN [address] [place] [phone] Medication refill (Primary Dx) Social History Tobacco Use Types [...] 1 mg 28 Tab 2 04/06/2019 07/30/2019 documented in this encounter Progress Notes * Taryn Salazar, JOSEFINA - 04/06/2019 1649 EDT Pended refill request for pt's clonazepam to Dr. Shannon. Last ordered 28 tablets with 2 refills 12/21/2018. Taryn Salazar, RN documented in this encounter Plan of Treatment Upcoming Encounters Date Type Department Care Team (Late st Contact Info) Description 06/08/2024 13:30 EDT Office Visit [facility] [address] [place], [place] [phone] Michelle Shannon MD [address] [place] [phone] documented as of this encounter Visit Diagnoses Diagnosis Medication refill- Primary Issue of repeat prescriptions documented in this encounter Discontinued Medications Medication Sig Discontinue Reason Start Date End Da te clonazePAM (KLONOPIN) 1 mg tablet Take 1 tablet by mouth at bedtime. Daily Max: 1 mg Reorder 12/21/2018 04/06/2019 documented as of this encounter Care Teams Vending Manager Relationship Specialty Start Date End Date Michelle Shannon MD [address] [place] [phone] PCP - General 09/08/11 documented as of this encounter
--- OUTSIDE RECORDS SUMMARY | 2024-04-28 15:56 | XMS_ITS | Encounter Summary ---
Author Organization [facility] Address [address] [place] [address] Care Team Providers Care Founder President And Ceo Name Role Phone Michelle Shannon MD Primary Care Provider + Reason for Referral * Radiology Services (Routine) - Closed Specialty Diagnoses / Procedures Referred By Contac t Referred To Contact Diagnoses Impingement syndrome of right shoulder Procedures SHOULDER 2 OR MORE VIEWS Michelle Shannon MD [address] [place] [phone] Referral ID Status Reason Start Date Expiration Date Visits Re quested Visits Authorized [id number] Closed 10/16/2018 1 1 Reason for Visit * Reason Comments Follow-up No specific concerns today. Flu Vaccine Encounter Details Date Type Department Care Team (Late st Contact Info) Description 10/16/2018 13:30 EST Office Visit [facility] [address] [place] [phone] Michelle Shannon MD [address] [place] [phone] REM sleep behavior disorder (Primary Dx); Impingement syndrome of right shoulder; Need for influenza vaccination; MDD (major depressive disorder), recurrent episode, moderate (HCC-CMS); Narcolepsy without cataplexy; GERD without esophagitis; Shoulder impingement, right Social History Tobacco Use Types Packs/Day Years [...] Sign Reading Time Taken Comments Blood Pressure 118/80 10/16/2018 1314 EST Pulse 108 10/16/2018 1314 EST Temperature 37.6 ??C (99.6 ??F) 10/16/2018 1314 EST Respiratory Rate - - Oxygen Saturation 98% 10/16/2018 1314 EST Inhaled Oxygen Concentration - - Weight 79.4 kg (175 lb) 10/16/2018 1314 EST full y clothed Height - - Body Mass Index 29.12 06/24/2016 1121 EDT documented in this encounter Patient Instructions * Patient Instructions* Michelle Shannon MD - 10/16/2018 13:30 EST Avoid alcohol, peppermint, fatty foods and caffeine Limit carbonated beverages Sleep with the head of the bed elevated Avoid tight fitting clothing Avoid eating large meals close to bedtime Work on weight loss documented in this encounter Ordered Prescriptions Prescription Sig Dispensed Refills Start Date End Da te dextroamphetamine-amphetam ine (ADDERALL XR) 10 mg XR capsule Take 1 Cap by mouth 2 times daily. Noon and 4pm Daily Max: 20 mg 60 Cap 10/16/2018 12/21/2018 documented in this encounter Progress Notes * Michelle Shannon MD - 10/16/2018 1330 EST Subjective: Patient ID: Jane Blair is an 43 y.o. female. Chief Complaint Patient presents with ??? Follow-up No specific concerns today. ??? Flu Vaccine HPI Mood is doing well. She did not take any classes last semester or this semester, but did make the honors society the previous semester. Hopes to get back to school next semester, now that she has started paying off her loans again. Going to therapist once a week and a DBT group once a week. She is practicing mindfulness. Feels stable socially. She hopes to get back to work and she is volunteeringat the [employer]. Hopes to also volunteer at [employer]. She has a lot of anxiety about going back to work after 10 years and finding appropriate references. Sleeping difficulties related to narcolepsy and hypersomnia are unchanged. She denies any recent episodes of dreaming while awake. Sometimes she will sleep through an entire day and miss her medication that day. She is taking Abilify and Duloxetine and Adderall. The increase in the dose has seemed to be helping with her REM disorder sx. She has been compliant with Vitamin D If she missed a Protonix dose, she gets severe stomach acid. Then its hard to catch up. Even eatingcereal can increase sx. Recent stressors include her mother having a heart attack. She lives with her mom and is eating better since this occurred. She continues to have pain in the right shoulder and had to stop PT when her medicaid was cancelled. She never had any injury. The pain began gradually about 1 year ago. She is not taking medication for this. Has trouble reaching back and reaching overhead. She takes protonix rat exterminator and has severe sx if she misses a dose. Patient Active Problem List Diagnosis ??? Narcolepsy [...] by mouth at bedtime. 30 Tab 2 ??? ikkhyrv-howxgayafleak-kedfetvv (EXCEDRIN MIGRAINE) 250-250-65 mg per tablet Take [...] 28 Tab 2 ??? dextroamphetamine-amphetamine (ADDERALL XR) 20 mg XR [...] by mouth 2 times daily. 180 Tab 3 No current facility-administered medications on file prior to visit. No Known Allergies Review of Systems Constitutional: Positive for malaise/fatigue and weight loss. Negative for diaphoresis. Cardiovascular: Negative for palpitations. Neurological: Positive for tremors. Psychiatric/Behavioral: The patient is nervous/anxious and has insomnia. Objective: BP 118/80 Pulse (!) 108 Temp 37.6 ??C (99.6 ??F) Wt 79.4 kg (175 lb) Comment: fully clothed SpO2 98% BMI 29.12 kg/m?? Physical Exam Constitutional: She appears well-developed and well-nourished. No distress. l Cardiovascular: Normal rate, regular rhythm, Skin: Evidence of skin picking on face Musculoskeletal: Right shoulder- Tender AC joint. Pain with forward flexion, abduction and internalrotation with limited ROM in all directionsPsychiatric: Her mood appears anxious. Her speech is rapid and/or pressured. She is not agitated, not hyperactive and not withdrawn. She does not exhibit a depressed mood. Pt is mildly forgetful. Assessment: Plan: Jane was seen today for follow-up and flu vaccine. Diagnoses and all orders for this visit: REM sleep behavior disorder Impingement syndrome of right shoulder - SHOULDER 2 OR MORE VIEWS Need for influenza vaccination - INFLUENZA VACCINE QUAD (FLULAVAL) MDV 0.5 ML IM (6 MOS+) MDD (major depressive disorder), recurrent episode, moderate ([facility]) Narcolepsy without cataplexy GERD without esophagitis Shoulder impingement, right Other orders - dextroamphetamine-amphetamine (ADDERALL XR) 10 mg XR capsule; Take 1 Cap by mouth 2 times daily. Noon and 4pm Daily Max: 20 mg Narcolepsy and REM sleep disorder- stable Continue Adderall during the day and Clonazepam at night Taking Adderall 20mg in the AM and the 10mg bid noon and afternoon Major depressive disorder - doing well Stable on duloxetine and Abilify Encouraged her to consider working with [facility] to look for job Continue Counseling [facility] Right shoulder pain- possibly bursitis or related to sleep position, but some sx suggest arthritis Went to PT, but can't afford continue due to not having medicaid Xray right shoulder FH hemachromatosis- consider Ferritin level and LFTs with next labs GERD Discussed trying to wean Protonix to pepcid by replacing 1 day of Protonix with on dose of pepcid every 1-2 weeks Avoid alcohol, peppermint, fatty foods and caffeine Limit carbonated beverages Sleep with the head of the bed elevated Avoid tight fitting clothing Avoid eating large meals close to bedtime Work on weight loss Vit D deficiency Continue Vit D supplement Weight gain- losing weight Goal is to use the gym down the [address] 20 minutes twice a week or going to cardiac rehab with her mom Following a low carb diet Goals None Michelle Shannon MD documented in this encounter Plan of Treatment Upcoming Encounters Date Type Department Care Team (Late st Contact Info) Description 06/08/2024 13:30 EDT Office Visit [facility] [address] [place], [place] [phone] Michelle Shannon MD [address] [place] [phone] Scheduled Orders Name Type Priority Associated Diagnoses Orde r Schedule SHOULDER 2 OR MORE VIEWS Imaging Routine Impingement syndrome of right shoulder Ordered: 10/16/2018 documented as of this encounter Visit Diagnoses Diagnosis REM sleep behavior disorder- Primary Impingement syndrome of right shoulder Other affections of shoulder region, not elsewhere classified Need for influenza vaccination Need for prophylactic vaccination and inoculation against influenza MDD (major depressive disorder), recurrent episode, moderate ([facility]) Major depressive disorder, recurrent episode, moderate Narcolepsy without cataplexy GERD without esophagitis Esophageal reflux Shoulder impingement, right documented in this encounter Discontinued Medications Medication Sig Discontinue Reason Start Date End Da te dextroamphetamine-ampheta mine (ADDERALL XR) 10 mg XR capsule Take 1 Cap by mouth 2 times daily. Noon and 4pm Daily Max: 20 mg Reorder 08/07/2018 10/16/2018 documented as of this encounter Orders Immunization/Injection Count Last Ordered Date First Ordered Date INFLUENZA VACCINE QUAD (FLUL AVAL) MDV 0.5 ML IM (6 MOS+) 1 10/16/2018 documented in this encounter Care Teams Founder President And Ceo Relationship Specialty Start Date End Date Michelle Shannon MD [address] [place] [phone] PCP - General 09/08/11 documented as of this encounter
--- OUTSIDE RECORDS SUMMARY | 2024-04-28 15:56 | XMS_ITS | Encounter Summary ---
Author Organization [facility] Address [address] [place] [address] Care Team Providers Care Wildlife Forensic Geneticist Name Role Phone Michelle Shannon MD Primary Care Provider + Reason for Visit * Reason Onset Date Comments Shoulder Pain 12/22/2018 Encounter Details Date Type Department Care Team (Late st Contact Info) Description 12/22/2018 Telephone [facility] [address] [place] [address] Michelle Shannon MD [address] [place] [phone] Shoulder Pain Social History Tobacco Use Types Packs/Day Years [...] Telephone Encounter - Connor Arrington RN - 12/22/2018 3825 EDT Spoke with Jane who reports she is currently taking one Aleve in the morning and 1000 mg Advil before bed. She is requesting something stronger for nighttime pain/breakthrough pain. Notified Jane that taking too many NSAIDs can be harmful on her gut and she may benefit from a moreschedule regimen. Additionally suggested supplementing with acetaminophen. Suggested the following schedule: one aleve in the morning and one aleve at night OR 800 mg advil TID; AND 1000 mg acetaminophen TID. Advised Jane to try this new dosing/schedule out over the weekend and call back on Tuesday if she doesn't feel it's helping. Jane verbalized understanding and agreed to plan. CONNOR ARRINGTON RN * Telephone Encounter - Connor Arrington RN - 12/22/2018 1602 EDT Jane called to discuss pain management options for her right shoulder. Reports she has an appointment to get a cortisone shot in her shoulder on 01/03, but is wondering if there's something stronger than Advil that she could take in the meantime. Called patient back to discuss her current pain management strategies and options. No answer. Left voicemail asking her to return call. CONNOR ARRINGTON RN documented in this encounter Plan of Treatment Upcoming Encounters Date Type Department Care Team (Late st Contact Info) Description 06/08/2024 13:30 EDT Office Visit [facility] [address] [facility] [address] [place] [address] Michelle Shannon MD [address] [place] [phone] documented as of this encounter Visit Diagnoses Not on filedocumented in this encounter Care Teams Wildlife Forensic Geneticist Relationship Specialty Start Date End Date Michelle Shannon MD [address] [place] [phone] PCP - General 09/08/11 documented as of this encounter
--- OUTSIDE RECORDS SUMMARY | 2024-04-28 15:56 | XMS_ITS | Encounter Summary ---
Author Organization [facility] Address [address] [place] [address] Care Team Providers Care Cashier Credit Name Role Phone Michelle Shannon MD Primary Care Provider + Reason for Visit * Reason Onset Date Comments Medications Refill 05/21/2019 Encounter Details Date Type Department Care Team (Late st Contact Info) Description 05/21/2019 Refill [facility] [address] [place], [place] [phone] Chanel Mac RN Medications Refill Social History [...] daily. Daily Max: 2 Caps 60 Cap 05/21/2019 07/16/2019 DULoxetine (CYMBALTA) 60 mg capsule Take 1 Cap by mouth daily. 90 Cap 1 05/21/2019 02/07/2020 documented in this encounter Miscellaneous Notes * Telephone Encounter - Chanel Mac RN - 05/21/2019 1011 EDT Pt request for adderall 20 mg .Chanel Mac, RN documented in this encounter Plan of Treatment Upcoming Encounters Date Type Department Care Team (Late st Contact Info) Description 06/08/2024 13:30 EDT Office Visit [facility] [address] [place], [place] [phone] Michelle Shannon MD [address] [place] [phone] documented as of this encounter Visit Diagnoses Not on filedocumented in this encounter Discontinued Medications Medication Sig Discontinue Reason Start Date End Da te DULoxetine (CYMBALTA) 60 mg capsule Take 1 Cap by mouth daily. Reorder 10/11/2018 05/21/2019 dextroamphetamine-ampheta mine (ADDERALL XR) 20 mg XR capsule Take 1 Cap by mouth 2 times daily. Daily Max: 2 Caps Reorder 04/20/2019 05/21/2019 documented as of this encounter Care Teams Cashier Credit Relationship Specialty Start Date End Date Michelle Shannon MD [address] [place] [phone] PCP - General 09/08/11 documented as of this encounter
--- OUTSIDE RECORDS SUMMARY | 2024-04-28 15:56 | XMS_ITS | Encounter Summary ---
Author Organization [facility] Address [address] [place] [address] Care Team Providers Care Outreach Nurse Name Role Phone Michelle Shannon MD Primary Care Provider + Reason for Visit * Reason Onset Date Comments Medications Refill 09/06/2018 Encounter Details Date Type Department Care Team (Late st Contact Info) Description 09/06/2018 Refill [facility] [address] [place] [address] Michelle Shannon MD [address] [place] [phone] Medications Refill Social History Tobacco Use [...] morning Daily Max: 1 Cap 30 Cap 09/06/2018 10/11/2018 documented in this encounter Miscellaneous Notes * Telephone Encounter - Mandi Leon - 09/06/2018 1305 EST Pt is requesting a refill of Adderall XR 20mg. Mandi Leon MA documented in this encounter Plan of Treatment Upcoming Encounters Date Type Department Care Team (Late st Contact Info) Description 06/08/2024 13:30 EDT Office Visit [facility] [address] [place] [address] Michelle Shannon MD [address] [place] [phone] documented as of this encounter Visit Diagnoses Not on filedocumented in this encounter Discontinued Medications Medication Sig Discontinue Reason Start Date End Da te dextroamphetamine-amphet amine (ADDERALL XR) 20 mg XR capsule Take 1 Cap by mouth daily. Every morning Daily Max: 1 Cap Reorder 07/25/2018 09/06/2018 documented as of this encounter Care Teams Outreach Nurse Relationship Specialty Start Date End Date Michelle Shannon MD [address] [place] [phone] PCP - General 09/08/11 documented as of this encounter
--- OUTSIDE RECORDS SUMMARY | 2024-04-28 15:56 | XMS_ITS | Encounter Summary ---
Author Organization [facility] Address [address] [place] [address] Care Team Providers Care Certified Pathology Assistant Name Role Phone Michelle Shannon MD Primary Care Provider + Reason for Visit * Reason Comments Shoulder Pain RT SHOULDER NO DOI/D OS INJECTION F/U Encounter Details Date Type Department Care Team (Late st Contact Info) Description 02/02/2019 10:30 EDT Office Visit [facility] - [address] [place], [place] [phone] Ruslan García MD [address] [place] [phone] Impingement syndrome of right shoulder (Primary [...] - Inhaled Oxygen Concentration - - Weight 80.3 kg (177 lb) 02/02/2019 1038 EDT Height 165.1 cm (5' 5) 02/02/2019 1038 EDT Body Mass Index 29.45 02/02/2019 1038 EDT documented in this encounter Discharge Diagnoses Diagnosis M75.41 Impingement syndrome of right shoulder-M75.41[ICD-10-CM] documented in this encounter Discharge Disposition Disposition Code Departure Means Destination Auto Discharge documented in this encounter Progress Notes * Ruslan García MD - 02/02/2019 1030 EDT Chief Complaint Patient presents with ??? Shoulder Pain RT SHOULDER NO DOI/DOS INJECTION F/U SUBJECTIVE: Jane Blair is a 43 y.o. right hand dominant female who presents to the office to follow up for her right shoulder subacromial injection for impingement performed about 4 weeks ago. 01/03/19. Was a little sore after. Started working about 3 days after. 0 out of 10 pain. She initially presented with about a month and a half history of insidious onset right shoulder pain. No injury. She points to the front and side of the shoulder. Sometimes goes to the back of the shoulder. Also makes her fingers tingle. More pain with ADLs. Putting hair up. Raising arm overhead. She has lost motion but can move the shoulder if she needs to. OBJECTIVE: Ht 165.1 cm (65) Wt 80.3 kg (177 lb) BMI 29.45 kg/m?? General: awake, alert, NAD, pleasant EENT: [...] tenderness over coracoid process. Range of motion: 160 degrees forward elevation. 160 degrees abduction. 45 degrees ER at 0 degrees abduction, 90 degrees ER at 90 degrees abduction, IR to L1 vs L1 Strength testin/5 motor in empty can/scaption with tenderness, 5/5 motor in resisted external rotation. 5/5 motor on subscapular lift off test. Impingement testing: Negative Olson, negative Neers Special tests: No increased anterior or [...] cuff tendinitis and subacromial bursitis is noted. She has responded well to the subacromial injection PLAN: Patient's diagnosis, plain films and treatment options were discussed at length. Physical therapy was discussed as well to focus on rotator cuff and scapular stabilizer stretching and strengthening. Postural training will be addressed. Activity modification, ice and OTC medications were recommended as well. Minimize overhead and repetitive use. No heavy lifting. No further intervention planned. The patient verbalized understanding of the above and agreed with this plan. All of her questions were answered to her satisfaction today. 25 minutes of face to face time was spent with the patient, 15 minutes were spent on counseling andcoordination of care of the patient's right shoulder pain. Ruslan García M.D. 02/02/2019 10:49 Cc: Michelle Shannon MD documented in this encounter Plan of Treatment Upcoming Encounters Date Type Department Care Team (Late st Contact Info) Description 06/08/2024 13:30 EDT Office Visit [facility] [address] [facility] [address] [place] [address] Michelle Shannon MD [address] [place] [phone] documented as of this encounter Visit Diagnoses Diagnosis Impingement syndrome of right shoulder- Primary Other affections of shoulder region, not elsewhere classified documented in this encounter Care Teams Certified Pathology Assistant Relationship Specialty Start Date End Date Michelle Shannon MD [address] [place] [phone] PCP - General 09/08/11 documented as of this encounter
--- OUTSIDE RECORDS SUMMARY | 2024-04-28 15:56 | XMS_ITS | Encounter Summary ---
Author Organization [facility] Address [address] [place] [address] Care Team Providers Care Server Systems Administrator Name Role Phone Michelle Shannon MD Primary Care Provider + Reason for Visit * Reason Onset Date Comments Medications Refill 09/12/2018 Encounter Details Date Type Department Care Team (Late st Contact Info) Description 09/12/2018 Refill [facility] [address] [place], [place] [phone] Michelle Shannon MD [address] [place] [phone] Medications Refill Social History Tobacco [...] Info) Description 06/08/2024 13:30 EDT Office Visit [facility] [address] [facility] [address] [place], [place] [phone] Michelle Shannon MD [address] [place] [phone] documented as of this encounter Visit Diagnoses Not on filedocumented in this encounter Care Teams Server Systems Administrator Relationship Specialty Start Date End Date Michelle Shannon MD [address] [place] [phone] PCP - General 09/08/11 documented as of this encounter
--- OUTSIDE RECORDS SUMMARY | 2024-04-28 15:56 | XMS_ITS | Encounter Summary ---
Author Organization [facility] Address [address] [place] [address] Care Team Providers Care Personalized Living Assistant Name Role Phone Michelle Shannon MD Primary Care Provider + Reason for Visit * Reason Onset Date Comments Prior Auth, Medication 01/22/2019 Encounter Details Date Type Department Care Team (Late st Contact Info) Description 01/22/2019 Telephone [facility] [address] [place] [address] Michelle Shannon MD [address] [place] [phone] Prior Auth, Medication Social History [...] Telephone Encounter - Connor Arrington RN - 01/22/2019 1510 EDT Pt called to report that her pharmacy informed her she needs a prior auth for her new adderall rx. Per Yenifer Rolon APRN's note from 01/18/19, pt's adderrall dose is increased to 20 mg BID (AM & noon) and 10 mg Q 4pm. Per Jane the PA is for the second 20 mg dose. To Della Owen. Thanks! CONNOR ARRINGTON, RN documented in this encounter Plan of Treatment Upcoming Encounters Date Type Department Care Team (Late st Contact Info) Description 06/08/2024 13:30 EDT Office Visit [facility] [address] [place], [place] [phone] Michelle Shannon MD [address] [place] [phone] documented as of this encounter Visit Diagnoses Not on filedocumented in this encounter Care Teams Personalized Living Assistant Relationship Specialty Start Date End Date Michelle Shannon MD [address] [place] [phone] PCP - General 09/08/11 documented as of this encounter
--- OUTSIDE RECORDS SUMMARY | 2024-04-28 15:56 | XMS_ITS | Encounter Summary ---
Author Organization [facility] Address [address] [place] [address] Care Team Providers Care Control Panel Builder Name Role Phone Michelle Shannon MD Primary Care Provider + Reason for Referral * Radiology Services (Routine/Next Available) - New Request Specialty Diagnoses / Procedures Referred By Thelma long Referred To Contact Diagnoses Chronic right shoulder pain Procedures MS[facility] US SHOULDER Ruslan García MD [address] [place] [phone] Referral ID Status Reason Start Date Expiration Date V isits Requested Visits Authorized [id number] New Request 06/01/2019 1 1 Encounter Details Date Type Department Care Team (Late st Contact Info) Description 06/01/2019 Orders Only [facility] Program - [address] [place] [address] Ruslan García MD [address] [place] [phone] Chronic right shoulder pain (Primary Dx) [...] Info) Description 06/08/2024 13:30 EDT Office Visit [facility] [address] [place] [address] Michelle Shannon MD [address] [place] [phone] Pending Results Name Type Priority Associated Diagnoses Date /Time MSK US SHOULDER Imaging Routine Chronic right shoulder pain 06/01/2019 12:15 EDT documented as of this encounter Visit Diagnoses Diagnosis Chronic right shoulder pain- Primary Pain in joint, shoulder region documented in this encounter Care Teams Control Panel Builder Relationship Specialty Start Date End Date Michelle Shannon MD [address] [place] [phone] PCP - General 09/08/11 documented as of this encounter
--- OUTSIDE RECORDS SUMMARY | 2024-04-28 15:56 | XMS_ITS | Encounter Summary ---
Author Organization [facility] Address [address] [place] [address] Care Team Providers Care Line Maintenance Supervisor Name Role Phone Michelle Shannon MD Primary Care Provider + Encounter Details Date Type Department Care Team (Late st Contact Info) Description 08/21/2018 7:56 EST - 08/21/2018 23:59 EST Hospital Encounter [facility] [address] [place] [address] Chela Ta MD [address] [place] [phone] Discharge Disposition: Auto Discharge Social History Tobacco [...] as of this encounter Discharge Diagnoses Diagnosis R92.8 Other abnormal and inconclusive findings on diagnostic imaging of breast-R92.8[ICD-10-CM] documented in this encounter Medications at Time [...] by mouth at bedtime. 30 Tab 2 08/14/2018 11/24/2018 Azelaic Acid (FINACEA) 15 % gel Apply topically 2 times daily. 02/06/2021 calcium-vitamin D (OS-NOEMY D) 500 mg(1,250mg) -200 unit per tabletIndications:MDD (major depressive disorder), recurrent episode, moderate (HCC-CMS) Take 1 Tab by mouth 2 times daily with breakfast and dinner. 60 Tab 0 08/20/2014 11/19/2019 clonazePAM (KLONOPIN) 1 mg tablet take 1 tablet by mouth at bedtime 28 Tab 2 05/31/2018 08/30/2018 dextroamphetamine-amph etamine (ADDERALL XR) 10 mg XR capsule Take 1 Cap by mouth 2 times daily. Noon and 4pm Daily Max: 20 mg 60 Cap 08/07/2018 10/16/2018 dextroamphetamine-amph etamine (ADDERALL XR) 20 mg XR capsule Take 1 Cap by mouth daily. Every morning Daily Max: 1 Cap 30 Cap 07/25/2018 09/06/2018 DULoxetine (CYMBALTA) 60 mg capsule Take 1 Cap by mouth daily. 90 Cap 1 06/06/2018 10/11/2018 fluticasone (FLONASE) 50 mcg/actuation nasal spray Instill [...] 03/24/2012 02/06/2021 pantoprazole (PROTONIX) 40 mg tablet take 1 tablet by mouth once daily 90 Tab 3 06/29/2018 10/02/2018 topiramate (TOPAMAX) 50 mg tablet Take 1 Tab by mouth 2 times daily. 180 Tab 3 08/30/2017 10/27/2018 documented as of this encounter Discharge Disposition Disposition Code Departure Means Destination Auto Discharge Home documented in this encounter Plan of Treatment Upcoming Encounters Date Type Department Care Team (Late st Contact Info) Description 06/08/2024 13:30 EDT Office Visit [facility] [address] [place], [place] [phone] Michelle Shannon MD [address] [place] [phone] documented as of this encounter Visit Diagnoses Not on filedocumented in this encounter Care Teams Line Maintenance Supervisor Relationship Specialty Start Date End Date Michelle Shannon MD [address] [place] [phone] PCP - General 09/08/11 documented as of this encounter
--- OUTSIDE RECORDS SUMMARY | 2024-04-28 15:56 | XMS_ITS | Encounter Summary ---
Author Organization [facility] Address [address] [place] [address] Care Team Providers Care Bale Stacker Name Role Phone Michelle Shannon MD Primary Care Provider + Reason for Visit * Reason Onset Date Comments Medications Refill 01/16/2019 Encounter Details Date Type Department Care Team (Late st Contact Info) Description 01/16/2019 Refill [facility] [address] [place] [address] Michelle Shannon MD [address] [place] [phone] Medications Refill Social History Tobacco Use [...] XR capsule Take 1 capsule by mouth daily. Every morning Daily Max: 1 capsule 30 capsule 01/21/2019 01/18/2019 documented in this encounter Miscellaneous Notes * Telephone Encounter - Romeo Elliott MD - 01/16/2019 1226 EDT Filled but I changed start date to 01/21/19 * Telephone Encounter - Chanel Mac RN - 01/16/2019 0804 EDT Pt request for refill on Adderall 20 mg , last refilled 12/21/18, disp 30/0 , last office visit 10/16/18.Chanel Mac RN documented in this encounter Plan of Treatment Upcoming Encounters Date Type Department Care Team (Late st Contact Info) Description 06/08/2024 13:30 EDT Office Visit [facility] [address] [facility] [address] [place], [place] [phone] Michelle Shannon MD [address] [place] [phone] documented as of this encounter Visit Diagnoses Not on filedocumented in this encounter Discontinued Medications Medication Sig Discontinue Reason Start Date End Da te dextroamphetamine-amphet amine (ADDERALL XR) 20 mg XR capsule Take 1 capsule by mouth daily. Every morning Daily Max: 1 capsule Reorder 12/21/2018 01/16/2019 documented as of this encounter Care Teams Bale Stacker Relationship Specialty Start Date End Date Michelle Shannon MD [address] [place] [phone] PCP - General 09/08/11 documented as of this encounter
--- OUTSIDE RECORDS SUMMARY | 2024-04-28 15:56 | XMS_ITS | Encounter Summary ---
Author Organization [facility] Address [address] [place] [address] Care Team Providers Care Playground Attendant Name Role Phone Michelle Shannon MD Primary Care Provider + Reason for Visit * Reason Onset Date Comments Medications Refill 04/19/2019 Encounter Details Date Type Department Care Team (Late st Contact Info) Description 04/19/2019 Refill [facility] [address] [place] [phone] Chanel Mac RN Medications Refill Social History [...] Telephone Encounter - Chanel Mac RN - 04/19/2019 1105 EDT Pt called requesting refills on adderall xr 20 mg and pantoprazole 40 mg . adderall was filled 03/08/19 #60/0 . pantoprazole was filled 10/02/18 #90/1, last OV with SN was 01/17/19. Last OV with Dr. Shannon 10/16/18.Chanel Mac RN documented in this encounter Plan of Treatment Upcoming Encounters Date Type Department Care Team (Late st Contact Info) Description 06/08/2024 13:30 EDT Office Visit [facility] [address] [place], [place] [phone] Michelle Shannon MD [address] [place] [phone] documented as of this encounter Visit Diagnoses Not on filedocumented in this encounter Care Teams Playground Attendant Relationship Specialty Start Date End Date Michelle Shannon MD [address] [place] [phone] PCP - General 09/08/11 documented as of this encounter
--- OUTSIDE RECORDS SUMMARY | 2024-04-28 15:56 | XMS_ITS | Encounter Summary ---
Author Organization [facility] Address [address] [place] [address] Care Team Providers Care Aircraft Inspection Record Clerk Name Role Phone Michelle Shannon MD Primary Care Provider + Reason for Visit * Reason Onset Date Comments Medications Refill 03/20/2019 Encounter Details Date Type Department Care Team (Late st Contact Info) Description 03/20/2019 Refill [facility] [address] [place], [place] [phone] Michelle Shannon MD [address] [place] [phone] Medications Refill Social History [...] by mouth at bedtime. 30 Tab 2 03/20/2019 04/20/2019 documented in this encounter Plan of Treatment Upcoming Encounters Date Type Department Care Team (Late st Contact Info) Description 06/08/2024 13:30 EDT Office Visit [facility] [address] [facility] [address] [place], [place] [phone] Michelle Shannon MD [address] [place] [phone] documented as of this encounter Visit Diagnoses Not on filedocumented in this encounter Discontinued Medications Medication Sig Discontinue Reason Start Date End Da te ARIPiprazole (ABILIFY) 10 mg tablet Take 1 tablet by mouth at bedtime. Reorder 11/24/2018 03/20/2019 documented as of this encounter Care Teams Aircraft Inspection Record Clerk Relationship Specialty Start Date End Date Michelle Shannon MD [address] [place] [phone] PCP - General 09/08/11 documented as of this encounter
--- OUTSIDE RECORDS SUMMARY | 2024-04-28 15:56 | XMS_ITS | Encounter Summary ---
Author Organization [facility] Address [address] [place] [address] Care Team Providers Care Apprentice Jockey Name Role Phone Michelle Shannon MD Primary Care Provider + Encounter Details Date Type Department Care Team (Late st Contact Info) Description 08/30/2018 Orders Only [facility] [address] [place], [place] [phone] Michelle Shannon MD [address] [place] [phone] MDD (major depressive disorder), recurrent episode, moderate (HCC-CMS) (Primary Dx) Social History Tobacco Use Types [...] Daily Max: 1 mg 28 Tab 2 08/30/2018 12/21/2018 documented in this encounter Plan of Treatment Upcoming Encounters Date Type Department Care Team (Late st Contact Info) Description 06/08/2024 13:30 EDT Office Visit [facility] [address] [place] [address] Michelle Shannon MD [address] [place] [phone] documented as of this encounter Visit Diagnoses Diagnosis MDD (major depressive disorder), recurrent episode, moderate ([facility])- Primary Major depressive disorder, recurrent episode, moderate documented in this encounter Discontinued Medications Medication Sig Discontinue Reason Start Date End Da te clonazePAM (KLONOPIN) 1 mg tablet take 1 tablet by mouth at bedtime Reorder 05/31/2018 08/30/2018 documented as of this encounter Care Teams Apprentice Jockey Relationship Specialty Start Date End Date Michelle Shannon MD [address] [place] [phone] PCP - General 09/08/11 documented as of this encounter
--- OUTSIDE RECORDS SUMMARY | 2024-04-28 15:56 | XMS_ITS | Encounter Summary ---
Author Organization [facility] Address [address] [place] [address] Care Team Providers Care Basket Mender Name Role Phone Michelle Shannon MD Primary Care Provider + Encounter Details Date Type Department Care Team (Late st Contact Info) Description 11/24/2018 Orders Only [facility] [address] [place] [address] Taryn Salazar, RN [address] [place] [phone] MDD (major depressive disorder), recurrent episode, moderate [...] by mouth at bedtime. 30 tablet 2 11/24/2018 03/20/2019 documented in this encounter Plan of Treatment Upcoming Encounters Date Type Department Care Team (Late st Contact Info) Description 06/08/2024 13:30 EDT Office Visit [facility] [address] [facility] [address] [place] [address] Michelle Shannon MD [address] [place] [phone] documented as of this encounter Visit Diagnoses Diagnosis MDD (major depressive disorder), recurrent episode, moderate ([facility])- Primary Major depressive disorder, recurrent episode, moderate documented in this encounter Discontinued Medications Medication Sig Discontinue Reason Start Date End Da te ARIPiprazole (ABILIFY) 10 mg tablet Take 1 Tab by mouth at bedtime. Reorder 08/14/2018 11/24/2018 documented as of this encounter Care Teams Basket Mender Relationship Specialty Start Date End Date Michelle Shannon MD [address] [place] [phone] PCP - General 09/08/11 documented as of this encounter
--- OUTSIDE RECORDS SUMMARY | 2024-04-28 15:56 | XMS_ITS | Encounter Summary ---
Author Organization [facility] Address [address] [place] [address] Care Team Providers Care Front End Driver Name Role Phone Michelle Shannon MD Primary Care Provider + Reason for Visit * Reason Onset Date Comments Vaginitis 08/24/2018 Encounter Details Date Type Department Care Team (Late st Contact Info) Description 08/24/2018 Telephone [facility] [address] [place] [address] Michelle Shannon MD [address] [place] [phone] Vaginitis Social History Tobacco Use Types Packs/Day Years [...] Dispensed Refills Start Date End Da te fluconazole (DIFLUCAN) 150 mg tablet Take 1 Tab by mouth once for 1 day. 1 Tab 08/24/2018 08/25/2018 documented in this encounter Miscellaneous Notes * Telephone Encounter - Mandi Leon - 08/24/2018 8585 EST FYI: Left message for pt to call us back so that she was aware that the Diflucan was sent to [facility] in [place] not the [facility]. Mandi Leon MA * Addendum Note - Michelle Shannon MD - 08/24/2018 1205 ESTAddended by: MICHELLE SHANNON on: 08/24/2018 12:05 Modules accepted: Orders * Telephone Encounter - Mandi Leon - 08/24/2018 1147 EST Pt was recently on antibiotics for an ear infection. Now pt has a yeast infection and would like juliette treated with Diflucan. Pt uses [facility]. Mandi Leon MA documented in this encounter Plan of Treatment Upcoming Encounters Date Type Department Care Team (Late st Contact Info) Description 06/08/2024 13:30 EDT Office Visit [facility] [address] [place] [address] Michelle Shannon MD [address] [place] [phone] documented as of this encounter Visit Diagnoses Not on filedocumented in this encounter Care Teams Front End Driver Relationship Specialty Start Date End Date Michelle Shannon MD [address] [place] [phone] PCP - General 09/08/11 documented as of this encounter
--- OUTSIDE RECORDS SUMMARY | 2024-04-28 15:56 | XMS_ITS | Encounter Summary ---
Author Organization [facility] Address [address] [place] [address] Care Team Providers Care Possum Trapper Name Role Phone Michelle Shannon MD Primary Care Provider + Reason for Visit * Reason Comments Other Encounter Details Date Type Department Care Team (Late st Contact Info) Description 07/30/2019 Refill [facility] [address] [place], [place] [phone] Michelle Shannon MD [address] [place] [phone] Other Social History Tobacco Use [...] Info) Description 06/08/2024 13:30 EDT Office Visit [facility] [address] [place], [place] [phone] Michelle Shannon MD [address] [place] [phone] documented as of this encounter Visit Diagnoses Not on filedocumented in this encounter Care Teams Possum Trapper Relationship Specialty Start Date End Date Michelle Shannon MD [address] [place] [phone] PCP - General 09/08/11 documented as of this encounter
--- OUTSIDE RECORDS SUMMARY | 2024-04-28 15:56 | XMS_ITS | Encounter Summary ---
Author Organization [facility] Address [address] [place] [address] Care Team Providers Care Crosscutter Rolled Glass Name Role Phone Michelle Shannon MD Primary Care Provider + Encounter Details Date Type Department Care Team (Late st Contact Info) Description 10/27/2018 Results Only Imaging [facility] [phone] Unknown, Provider, Social History Tobacco Use Types Packs/Day Years [...] Info) Description 06/08/2024 13:30 EDT Office Visit [facility] [address] [facility] [address] [place] [address] Michelle Shannon MD [address] [place] [phone] Pending Results Name Type Priority Associated Diagnoses Date /Time OUTSIDE IMAGES - PLAIN FILM MSK Imaging 10/27/2018 16:19 EST documented as of this encounter Visit Diagnoses Not on filedocumented in this encounter Care Teams Crosscutter Rolled Glass Relationship Specialty Start Date End Date Michelle Shannon MD [address] [place] [phone] PCP - General 09/08/11 documented as of this encounter
--- OUTSIDE RECORDS SUMMARY | 2024-04-28 15:56 | XMS_ITS | Encounter Summary ---
Author Organization [facility] Address [address] [place] [address] Care Team Providers Care Flanging Roll Operator Name Role Phone Michelle Shannon MD Primary Care Provider + Reason for Visit * Reason Comments Other Encounter Details Date Type Department Care Team (Late st Contact Info) Description 10/27/2018 Refill [facility] [address] [place], [place] [phone] Michelle Shannon MD [address] [place] [phone] Other Social History Tobacco Use [...] Da te topiramate (TOPAMAX) 50 mg tablet take 1 tablet by mouth twice a day 180 Tab 1 10/27/2018 12/23/2019 documented in this encounter Plan of Treatment Upcoming Encounters Date Type Department Care Team (Late st Contact Info) Description 06/08/2024 13:30 EDT Office Visit [facility] [address] [place], [place] [phone] Michelle Shannon MD [address] [place] [phone] documented as of this encounter Visit Diagnoses Not on filedocumented in this encounter Discontinued Medications Medication Sig Discontinue Reason Start Date End Da te topiramate (TOPAMAX) 50 mg tablet Take 1 Tab by mouth 2 times daily. Reorder 08/30/2017 10/27/2018 documented as of this encounter Care Teams Flanging Roll Operator Relationship Specialty Start Date End Date Michelle Shannon MD [address] [place] [phone] PCP - General 09/08/11 documented as of this encounter
--- OUTSIDE RECORDS SUMMARY | 2024-04-28 15:56 | XMS_ITS | Encounter Summary ---
Author Organization [facility] Address [address] [place] [address] Care Team Providers Care Snow Plow Operator Name Role Phone Michelle Shannon MD Primary Care Provider + Encounter Details Date Type Department Care Team (Late st Contact Info) Description 02/19/2019 Results Only Imaging [facility] [phone] Chela Ta MD [address] [place] [address] [address] [place] [phone] Social History Tobacco Use Types [...] Office Visit [facility] [address] [facility] [address] [place] [address] Michelle Shannon MD [address] [place] [phone] documented as of this encounter Visit Diagnoses Not on filedocumented in this encounter Care Teams Snow Plow Operator Relationship Specialty Start Date End Date Michelle Shannon MD [address] [place] [phone] PCP - General 09/08/11 documented as of this encounter
--- OUTSIDE RECORDS SUMMARY | 2024-04-28 15:56 | XMS_ITS | Encounter Summary ---
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); MDD (major depressive disorder), recurrent episode, moderate (HCC-CMS); Pharyngitis, unspecified etiology Social History Tobacco Use Types Packs/Day Years [...] Sign Reading Time Taken Comments Blood Pressure 120/72 08/28/2019 1049 EST Pulse 94 08/28/2019 1049 EST Temperature 36.6 ??C (97.8 ??F) 08/28/2019 1049 EST Respiratory Rate - - Oxygen Saturation 97% 08/28/2019 1049 EST Inhaled Oxygen Concentration - - Weight 79.7 kg (175 lb 9.6 oz) 08/28/[address] Height - - Body Mass Index 29.22 02/02/2019 1038 EDT documented in this encounter Ordered Prescriptions Prescription Sig Dispensed Refills Start Date End Da te clonazePAM (KLONOPIN) 1 mg tablet Take 1 Tab by mouth at bedtime. Daily Max: 1 mg 28 Tab 08/28/2019 10/08/2019 dextroamphetamine-amphetam ine (ADDERALL XR) 20 mg XR capsule Take 1 Cap by mouth 2 times daily. Daily Max: 2 Caps 60 Cap 08/28/2019 10/12/2019 documented in this encounter Progress Notes * Yenifer Rolon, PATIENT PORTAL CONCIERGE - 08/28/2019 1030 EST Subjective: Patient ID: Jane Blair is an 44 y.o. female. Chief Complaint Patient presents with ??? Follow-up HPI Jane presents in follow up for anxiety and depression. She has a new job at [employer]. She is nervous she may lose her job as she no called/no showed to her last two shifts as she sleptthrough them. She has difficulty waking up in the morning and starting her day. She then feels tired again around 4pm. She is taking adderall three times per day. She continues to see her case checker and therapist every other week. She was planning on starting to see her therapist weekly and starting DBT but has not been able to fit this into her schedule. She is scheduled for a tonsillectomy in two weeks due to her enlarged tonsils and small airway. Shereports having a mild sore throat and nasal congestion. No fever. Patient Active Problem List Diagnosis ??? Narcolepsy [...] mouth at bedtime. 90 Tab 2 ??? zmcrpot-boalkffjermax-gwludcde (EXCEDRIN MIGRAINE) 250-250-65 mg per tablet Take 1 Tab by mouthevery 6 hours as needed. Indications: MIGRAINE ??? Azelaic Acid (FINACEA) 15 % gel Apply topically 2 times daily. ??? calcium-vitamin D (OS-NOEMY D) 500 mg(1,250mg) -200 unit per tablet Take 1 Tab by mouth 2 times daily with breakfast and dinner. 60 Tab 0 ??? dextroamphetamine-amphetamine (ADDERALL XR) 10 mg XR capsule Take one capsule at 4pm 30 Cap 0 ??? DULoxetine (CYMBALTA) 60 [...] Systems Constitutional: Negative for chills and fever. Psychiatric/Behavioral: Positive for depression. The patient is nervous/anxious. - See HPI Objective: BP 120/72 Pulse 94 Temp 36.6 ??C (97.8 ??F) (Tympanic) Wt 79.7 kg (175 lb 9.6 oz) SpO2 97% BMI 29.22 kg/m?? Physical Exam Constitutional: She appears well-developed and well-nourished. No distress. Cardiovascular: Normal rate, regular rhythm and normal heart sounds. Pulmonary/Chest: Effort normal and breath sounds normal. Psychiatric: She has a normal mood and affect. Assessment: Narcolepsy Depression Pharyngitis Plan: Jane was seen today for follow-up. Diagnoses and all orders for this visit: Narcolepsy without cataplexy MDD (major depressive disorder), recurrent episode, moderate ([facility]) Pharyngitis, unspecified etiology Other orders - dextroamphetamine-amphetamine (ADDERALL XR) 20 mg XR capsule; Take 1 Cap by mouth 2 times daily. Daily Max: 2 Caps - clonazePAM (KLONOPIN) 1 mg tablet; Take 1 Tab by mouth at bedtime. Daily Max: 1 mg Narcolepsy- She is sleeping more throughout the day and missing work As symptoms are stable, I will continue her on the same dose of adderall Will have her follow up with Dr. Shannon next month to discuss potential medication change/increase Depression: Stable on duloxetine and abilify Encouraged her to follow up and pursue DBT Continue working with therapist Pharyngitis: No evidence of bacterial infection She is scheduled for a tonsillectomy in two weeks Follow up in one month, sooner prn. Yenifer Rolon APRN documented in this encounter Plan of Treatment Upcoming Encounters Date Type Department Care Team (Late st Contact Info) Description 06/08/2024 13:30 EDT Office Visit [facility] [address] [place], [place] [phone] Michelle Shannon MD [address] [place] [phone] documented as of this encounter Visit Diagnoses Diagnosis Narcolepsy without cataplexy- Primary MDD (major depressive disorder), recurrent episode, moderate ([facility]) Major depressive disorder, recurrent episode, moderate Pharyngitis, unspecified etiology documented in this encounter Discontinued Medications Medication Sig Discontinue Reason Start Date End Da te dextroamphetamine-ampheta mine (ADDERALL XR) 20 mg XR capsule Take 1 Cap by mouth 2 times daily. Daily Max: 2 Caps Reorder 07/16/2019 08/28/2019 clonazePAM (KLONOPIN) 1 mg tablet Take 1 Tab by mouth at bedtime. Daily Max: 1 mg Reorder 07/30/2019 08/28/2019 documented as of this encounter Care Teams Electronic Communications Technician Relationship Specialty Start Date End Date Michelle Shannon MD [address] [place] [phone] PCP - General 09/08/11 documented as of this encounter
--- OUTSIDE RECORDS SUMMARY | 2024-04-28 15:56 | XMS_ITS | Encounter Summary ---
Author Organization [facility] Address [address] [place] [address] Care Team Providers Care Fender Mechanic Name Role Phone Michelle Shannon MD Primary Care Provider + Reason for Referral * Consult (Routine) - Specialty Report Received Specialty Diagnoses / Procedures Referred By Thelma long Referred To Contact Diagnoses Snoring Upper airway resistance syndrome Michelle Shannon MD [address] [place] [phone] Referral ID Status Reason Start Date Expiration Date Visits Requested Visits Authorized [id number] Specialty Report Received Specialty Services Required 04/27/2019 1 1 Question Answer Reason for Request: snoring. Large tonsils Practice Site (External Referral Only): [facility] Reason for Visit * Reason Onset Date Comments Snoring 04/27/2019 Encounter Details Date Type Department Care Team (Late st Contact Info) Description 04/27/2019 Telephone [facility] [address] [place] [address] Taryn Salazar, RN [address] [place] [phone] Snoring Social History Tobacco Use Types Packs/Day Years [...] Telephone Encounter - Taryn Salazar RN - 05/01/2019 0824 EDT Thank you. Taryn Salazar RN * Telephone Encounter - Taryn Salazar RN - 04/27/2019 1657 EDT Message rec'd from Jane who requests a referral to ENT at [facility] to address her large tonsils. She c/o loud snoring which affects her sleep and her partner's sleep. Dr. Rodriguez, I tried to pend a referral request to you but couldn't find an order in [employer] to select- I apologize! If you agree, be sure to select external referral with comments to fax to [facility]. Thank you Taryn Salazar RN documented in this encounter Plan of Treatment Upcoming Encounters Date Type Department Care Team (Late st Contact Info) Description 06/08/2024 13:30 EDT Office Visit [facility] [address] [facility] [address] [place] [address] Michelle Shannon MD [address] [place] [phone] Scheduled Referrals Name Type Priority Associated Diagnoses Orde r Schedule AMB CONS/FOLLOW UP ENT Outpatient Referral Routine Snoring Upper airway resistance syndrome Ordered: 04/27/2019 documented as of this encounter Visit Diagnoses Diagnosis Snoring- Primary Other dyspnea and respiratory abnormality Upper airway resistance syndrome Other organic sleep disorders documented in this encounter Care Teams Fender Mechanic Relationship Specialty Start Date End Date Michelle Shannon MD [address] [place] [phone] PCP - General 09/08/11 documented as of this encounter
--- OUTSIDE RECORDS SUMMARY | 2024-04-28 15:56 | XMS_ITS | Encounter Summary ---
Author Organization [facility] Address [address] [place] [address] Care Team Providers Care Reservation Clerk Name Role Phone Michelle Shannon MD Primary Care Provider + Reason for Referral * Prior Authorization (Routine) - Specialty Report Received Specialty Diagnoses / Procedures Referred By Thelma long Referred To Contact Diagnoses Chronic right shoulder pain Ruslan García MD [address] [place] [phone] Referral ID Status Reason Start Date Expiration Date Visits Requested Visits Authorized [id number] Specialty Report Received Specialty Services Required 12/07/2018 1 1 Question Answer Reason for Request: RT SHOULDER USG SA INJECTION Comments The purpose of this consult request is to inform the scheduling staff that a procedure/surgery needs to be prior-authorized before it is scheduled. Encounter Details Date Type Department Care Team (Late st Contact Info) Description 12/06/2018 Orders Only [facility] Sports Medicine Program - [address] [address] Ruslan García MD [address] [place] [phone] Chronic right shoulder pain (Primary Dx) [...] Info) Description 06/08/2024 13:30 EDT Office Visit [facility] [address] [place] [address] Michelle Shannon MD [address] [place] [phone] Scheduled Referrals Name Type Priority Associated Diagnoses Order Schedule AMB CONS/FOLLOW UP PROCEDURE PRIOR AUTHORIZATION REQUEST Outpatient Referral Routine Chronic right shoulder pain Ordered: 12/07/2018 documented as of this encounter Visit Diagnoses Diagnosis Chronic right shoulder pain- Primary Pain in joint, shoulder region documented in this encounter Care Teams Reservation Clerk Relationship Specialty Start Date End Date Michelle Shannon MD [address] [place] [phone] PCP - General 09/08/11 documented as of this encounter
--- OUTSIDE RECORDS SUMMARY | 2024-04-28 15:56 | XMS_ITS | Encounter Summary ---
Author Organization [facility] Address [address] [place] [address] Care Team Providers Care Customer Success Associate Name Role Phone Michelle Shannon MD Primary Care Provider + Reason for Visit * Reason Onset Date Comments Medications Refill 08/02/2019 Encounter Details Date Type Department Care Team (Late st Contact Info) Description 08/02/2019 Refill [facility] [address] [place] [phone] Connor Arrington RN Medications Refill Social History Tobacco Use [...] Take one capsule at 4pm 30 Cap 08/02/2019 09/24/2019 documented in this encounter Miscellaneous Notes * Telephone Encounter - Connor Arrington RN - 08/02/2019 1028 EST Pt requesting refill of Adderall 10 mg QD. Rx last ordered 04/20/19 for 30 tabs. Last office visit 04/20/19. Preferred pharmacy is in [place]. To Yenifer Rolon APRN. CONNOR GERITY, RN documented in this encounter Plan of Treatment Upcoming Encounters Date Type Department Care Team (Late st Contact Info) Description 06/08/2024 13:30 EDT Office Visit [facility] [address] [place], [place] [phone] Michelle Shannon MD [address] [place] [phone] documented as of this encounter Visit Diagnoses Not on filedocumented in this encounter Discontinued Medications Medication Sig Discontinue Reason Start Date End Da te dextroamphetamine-amphet amine (ADDERALL XR) 10 mg XR capsule Take one capsule at 4pm Reorder 04/20/2019 08/02/2019 documented as of this encounter Care Teams Customer Success Associate Relationship Specialty Start Date End Date Michelle Shannon MD [address] [place] [phone] PCP - General 09/08/11 documented as of this encounter
--- OUTSIDE RECORDS SUMMARY | 2024-04-28 15:56 | XMS_ITS | Encounter Summary ---
Author Organization [facility] Address [address] [place] [address] Care Team Providers Care Security Services Manager Name Role Phone Michelle Shannon MD Primary Care Provider + Encounter Details Date Type Department Care Team (Late st Contact Info) Description 08/14/2018 Orders Only Benito Crowley MD, [facility] [address] [place] [address] Taryn Salazar RN [address] [place] [phone] Episodic mood disorder (HCC-CMS) (Primary Dx) Social History Tobacco Use [...] at bedtime. 30 Tab 2 08/14/2018 11/24/2018 documented in this encounter Progress Notes * Taryn Salazar - 08/14/2018 1449 EST Pt called for refill of Abilify. Refill appropriate. Sent to preferred pharmacy. Taryn Marie, RN documented in this encounter Plan of Treatment Upcoming Encounters Date Type Department Care Team (Late st Contact Info) Description 06/08/2024 13:30 EDT Office Visit [facility] [address] [place] [address] Michelle Shannon MD [address] [place] [phone] documented as of this encounter Visit Diagnoses Diagnosis Episodic mood disorder ([facility])- Primary Unspecified episodic mood disorder documented in this encounter Discontinued Medications Medication Sig Discontinue Reason Start Date End Da te ARIPiprazole (ABILIFY) 10 mg tablet Take 1 Tab by mouth at bedtime. Reorder 07/07/2018 08/14/2018 documented as of this encounter Care Teams Security Services Manager Relationship Specialty Start Date End Date Michelle Shannon MD [address] [place] [phone] PCP - General 09/08/11 documented as of this encounter
--- OUTSIDE RECORDS SUMMARY | 2024-04-28 15:56 | XMS_ITS | Encounter Summary ---
Author Organization [facility] Address [address] [place] [address] Care Team Providers Care Parts Control Clerk Name Role Phone Michelle Shannon MD Primary Care Provider + Encounter Details Date Type Department Care Team (Late st Contact Info) Description 04/20/2019 Results Only [facility] [address] [place], [place] [phone] Michelle Shannon MD [address] [place] [phone] Social History Tobacco Use Types [...] Info) Description 06/08/2024 13:30 EDT Office Visit [facility] [address] [place] [address] Michelle Shannon MD [address] [place] [phone] documented as of this encounter Procedures Procedure Name Priority Date/Time Associated Diagnosis Comments HOLD LAVENDER TOP Routine 04/20/2019 10: 48 EDT documented in this encounter Results * HOLD LAVENDER TOP (04/20/2019 10:48 EDT) Hold Purple Top EDTA for hematology will be discarded after 48 hours, differential not available after 12 hours. 04/20/2019 12:[address] [facility] BLOOD SPECIMEN / Unknown 04/20/2019 10:48 EDT 04/20/2019 12:00 EDT Michelle Shannon MD LAB INFO SERVICE AND SUPPORT & PHONE RESULT [facility] [address] [place] [address] documented in this encounter Visit Diagnoses Not on filedocumented in this encounter Care Teams Parts Control Clerk Relationship Specialty Start Date End Date Michelle Shannon MD [address] [place] [place] [phone] PCP - General 09/08/11 documented as of this encounter
--- OUTSIDE RECORDS SUMMARY | 2024-04-28 15:56 | XMS_ITS | Encounter Summary ---
Author Organization [facility] Address [address] [place] [address] Care Team Providers Care Safety Professional Name Role Phone Michelle Shannon MD Primary Care Provider + Reason for Visit * Reason Onset Date Comments Sinusitis 09/05/2019 Encounter Details Date Type Department Care Team (Late st Contact Info) Description 09/05/2019 Telephone [facility] [address] [place] [phone] Taryn Salazar RN [address] [place] [phone] Sinusitis Social History Tobacco Use Types Packs/Day Years [...] Telephone Encounter - Taryn Salazar RN - 09/05/2019 9832 EST Call from Jane who reports 10 days of sinus congestion, rhinorrhea, and cough. She has been using dayquil and nyquil for sxs management. Denies severe pain, headache, fever/chills. Pt requests appointment. Offered appointment before Tuesday as pt has tonsillectomy next week. TARYN DARRYL, RN documented in this encounter Plan of Treatment Upcoming Encounters Date Type Department Care Team (Late st Contact Info) Description 06/08/2024 13:30 EDT Office Visit [facility] [address] [place], [place] [phone] Michelle Shannon MD [address] [place] [phone] documented as of this encounter Visit Diagnoses Not on filedocumented in this encounter Care Teams Safety Professional Relationship Specialty Start Date End Date Michelle Shannon MD [address] [place] [phone] PCP - General 09/08/11 documented as of this encounter
--- OUTSIDE RECORDS SUMMARY | 2024-04-28 15:56 | XMS_ITS | Encounter Summary ---
Author Organization [facility] Address [address] [place] [address] Care Team Providers Care Outside Medical Sales Representative Name Role Phone Michelle Shannon MD Primary Care Provider + Reason for Visit * Reason Onset Date Comments Medications Refill 07/12/2018 Encounter Details Date Type Department Care Team (Late st Contact Info) Description 07/12/2018 Refill [facility] [address] [place], [place] [address] Raisa Dolan RN [address] [facility] [address] [place] [address] Medications Refill Social History Tobacco Use Types [...] Info) Description 06/08/2024 13:30 EDT Office Visit [facility] [address] [place], [place] [phone] Michelle Shannon MD [address] [place] [phone] documented as of this encounter Visit Diagnoses Not on filedocumented in this encounter Care Teams Outside Medical Sales Representative Relationship Specialty Start Date End Date Michelle Shannon MD [address] [place] [phone] PCP - General 09/08/11 documented as of this encounter
--- OUTSIDE RECORDS SUMMARY | 2024-04-28 15:56 | XMS_ITS | Encounter Summary ---
Author Organization [facility] Address [address] [place] [address] Care Team Providers Care Manager Collection Name Role Phone Michelle Shannon MD Primary Care Provider + Encounter Details Date Type Department Care Team (Late st Contact Info) Description 04/10/2019 7:17 EDT - 04/10/2019 23:59 EDT Hospital Encounter [facility] [address] [place] [address] Chela Ta MD [address] [place] [phone] Discharge Disposition: Auto Discharge Social History [...] as of this encounter Discharge Diagnoses Diagnosis R92.2 Inconclusive mammogram-R92.2[ICD-10-CM] Z80.3 Family history of malignant neoplasm of breast-Z80.3[ICD-10-CM] documented in this encounter Medications at Time [...] at bedtime. 30 Tab 2 03/20/2019 04/20/2019 Azelaic Acid (FINACEA) 15 % gel Apply [...] capsule Take one capsule at 4pm 30 capsule 01/20/2019 04/20/2019 dextroamphetamine-amph etamine (ADDERALL XR) 20 mg XR capsule Take 1 Cap by mouth 2 times daily. Daily Max: 2 Caps 60 Cap 03/08/2019 04/20/2019 DULoxetine (CYMBALTA) 60 mg capsule Take 1 [...] Tab by mouth daily. 90 Tab 1 10/02/2018 04/20/2019 topiramate (TOPAMAX) 50 mg tablet take 1 tablet by mouth twice a day 180 Tab 1 10/27/2018 12/23/2019 documented as of this encounter Discharge Disposition Disposition Code Departure Means Destination Auto Discharge Home documented in this encounter Plan of Treatment Upcoming Encounters Date Type Department Care Team (Late st Contact Info) Description 06/08/2024 13:30 EDT Office Visit [facility] [address] [facility] [address] [place] [address] Michelle Shannon MD [address] [place] [phone] documented as of this encounter Visit Diagnoses Not on filedocumented in this encounter Care Teams Manager Collection Relationship Specialty Start Date End Date Michelle Shannon MD [address] [place] [phone] PCP - General 09/08/11 documented as of this encounter
--- OUTSIDE RECORDS SUMMARY | 2024-04-28 15:56 | XMS_ITS | Encounter Summary ---
Author Organization [facility] Address [address] [place] [address] Care Team Providers Care Spanish Linguist Name Role Phone Michelle Shannon MD Primary Care Provider + Reason for Visit * Reason Onset Date Comments Medications Refill 07/25/2018 Encounter Details Date Type Department Care Team (Late Contact Info) Description 07/25/2018 Refill Benito Crowley MD, [facility] [address] [place], [place] [phone] Raisa Dolan, JOSEFINA [address] [facility] [address] [place] [phone] Medications Refill Social History Tobacco Use [...] Max: 1 Cap 30 Cap 07/25/2018 09/06/2018 documented in this encounter Plan of Treatment Upcoming Encounters Date Type Department Care Team (Late st Contact Info) Description 06/08/2024 13:30 EDT Office Visit [facility] [address] [place] [address] Michelle Shannon MD [address] [place] [phone] documented as of this encounter Visit Diagnoses Not on filedocumented in this encounter Discontinued Medications Medication Sig Discontinue Reason Start Date End Da te dextroamphetamine-amphet amine (ADDERALL XR) 20 mg XR capsule Take 1 Cap by mouth daily. Every morning Daily Max: 1 Cap Reorder 06/19/2018 07/25/2018 documented as of this encounter Care Teams Spanish Linguist Relationship Specialty Start Date End Date Michelle Shannon MD [address] [place] [phone] PCP - General 09/08/11 documented as of this encounter
--- OUTSIDE RECORDS SUMMARY | 2024-04-28 15:56 | XMS_ITS | Encounter Summary ---
Author Organization [facility] Address [address] [place] [address] Care Team Providers Care Skilled Laborer Name Role Phone Michelle Shannon MD Primary Care Provider + Reason for Visit * Reason Comments Shoulder Pain RT SHOULDER USG SA I NJECTION * Prior Authorization (Routine) - Specialty Report Received Specialty Diagnoses / Procedures Referred By Thelma long Referred To Contact Diagnoses Chronic right shoulder pain Ruslan García MD [address] [place] [phone] Referral ID Status Reason Start Date Expiration Date Visits Requested Visits Authorized [id number] Specialty Report Received Specialty Services Required 12/07/2018 1 1 Encounter Details Date Type Department Care Team (Late st Contact Info) Description 01/03/2019 13:20 EDT Office Visit [facility] Sports Medicine Program - [address] [address] Ruslan García MD [address] [place] [phone] Impingement syndrome of right shoulder (Primary [...] - - Weight 79.4 kg (175 lb) 01/03/2019 1249 EDT Height 165.1 cm (5' 5) 01/03/2019 1249 EDT Body Mass Index 29.12 01/03/2019 1249 EDT documented in this encounter Discharge Diagnoses Diagnosis M75.41 Impingement syndrome of right shoulder-M75.41[ICD-10-CM] documented in this encounter Discharge Disposition Disposition Code Departure Means Destination Auto Discharge documented in this encounter Progress Notes * Ruslan García MD - 01/03/2019 1320 EDT Chief Complaint Patient presents with ??? Shoulder Pain RT SHOULDER USG SA INJECTION SUBJECTIVE: Jane Blair is a 43 y.o. female who present for a ultrasound guided injection into her right subacromial space. Patient has a diagnosis of right shoulder pain from impingement syndrome. Risks, benefits and alternatives were discussed with [...] prn and activity modification. Will follow up in 4 weeks. If this doesn't work, we will consider an US guided AC joint injection. I discussed all of the above verbally with patient, no barriers to understanding. The patient indicated understanding and agrees to the above plan. Ruslan García MD 13:06 01/03/2019 * Lindsey Oh - 01/03/2019 1320 EDT I. Patient is here for an US guided injection- Lidocaine 2% 20 mg/mL 2cc 1. Med given in right shoulder 2. Med lot number: [id number] [facility] number: [id number] 3. Exp date: 03/17 Firearms Assembly Supervisor: fresenius kabi ?? I. Patient is here for an US guided injection- Lidocaine 2% 20 mg/mL 3cc 1. Med given in right shoulder 2. Med lot number: [id number] [facility] number: [id number] 3. Exp date: 03/17 Firearms Assembly Supervisor: fresenius kabi I. Patient is here for an US guided injection -Bupivacaine 0.5 % 50mg/10mL 3cc 1. Med given in right SHOULDER 2. Med lot number: [id number] [facility] number: [id number] 3. Exp date: 05/2021 Firearms Assembly Supervisor: [employer] I. Patient is here for US guided injection- Kenalog 40 200mg/5mL 2cc 1. Med given in right shoulder 2. Med lot number: [id number] [facility] number: [id number] 3. Exp date: 05/2020 Firearms Assembly Supervisor: Scality ?? Lindsey Oh 01/03/19 documented in this encounter Plan of Treatment Upcoming Encounters Date Type Department Care Team (Late st Contact Info) Description 06/08/2024 13:30 EDT Office Visit [facility], [address] [place] [address] Michelle Shannon MD [address] [place] [phone] documented as of this encounter Visit Diagnoses Diagnosis Impingement syndrome of right shoulder- Primary Other affections of shoulder region, not elsewhere classified documented in this encounter Care Teams Skilled Laborer Relationship Specialty Start Date End Date Michelle Shannon MD [address] [place] [phone] PCP - General 09/08/11 documented as of this encounter
--- OUTSIDE RECORDS SUMMARY | 2024-04-28 15:56 | XMS_ITS | Encounter Summary ---
Author Organization [facility] Address [address] [place] [address] Care Team Providers Care Estate Planning Counselor Name Role Phone Michelle Shannon MD Primary Care Provider + Reason for Referral * Consult (Routine) - Closed Specialty Diagnoses / Procedures Referred By Contac t Referred To Contact Orthopedic Surgery Diagnoses Impingement syndrome of right shoulder Michelle Shannon MD [address] [place] [phone] Ruslan García MD [address] [place] [phone] Referral ID Status Reason Start Date Expiration Date V isits Requested Visits Authorized [id number] Closed Specialty Services Required 10/26/2018 1 1 Question Answer Reason for Request: right shoulder impingement Reason for Visit * Reason Onset Date Comments Results 10/25/2018 xray Encounter Details Date Type Department Care Team (Late st Contact Info) Description 10/25/2018 Telephone [facility] [address] [place] [address] Michelle Shannon MD [address] [place] [phone] Results (xray ) Social History Tobacco Use Types Packs/Day Years [...] as of this encounter Miscellaneous Notes * Addendum Note - Michelle Shannon MD - 10/26/2018 1424 ESTAddended by: MICHELLE SHANNON on: 10/26/2018 14:24 Modules accepted: Orders * Telephone Encounter - Michelle Shannon MD - 10/26/2018 1342 EST Spoke with Jane. Her Xray from [facility] does not show any arthrtitis, but there is some evidence of possible impingement. She cannot afford PT at this time, but would like to be referred to ortho to see if she might be a candidate for injection. * Telephone Encounter - [place] - 10/25/2018 1503 EST Call from Jane , she is looking for the results of her shoulder x-ray from 10/14/18. I did not see anything that has come through yet , I asked Jane to call [facility] and request a copy be faxed to us. Gave her the fax number . Ritika documented in this encounter Plan of Treatment Upcoming Encounters Date Type Department Care Team (Late st Contact Info) Description 06/08/2024 13:30 EDT Office Visit [facility] [address] [place], [place] [phone] Michelle Shannon MD [address] [place] [phone] Scheduled Referrals Name Type Priority Associated Diagnoses Order Schedule AMB CONS/FOLLOW UP ORTHOPEDICS Outpatient Referral Routine Impingement syndrome of right shoulder Ordered: 10/26/2018 documented as of this encounter Visit Diagnoses Diagnosis Impingement syndrome of right shoulder- Primary Other affections of shoulder region, not elsewhere classified documented in this encounter Care Teams Estate Planning Counselor Relationship Specialty Start Date End Date Michelle Shannon MD [address] [place] [phone] PCP - General 09/08/11 documented as of this encounter
--- OUTSIDE RECORDS SUMMARY | 2024-04-28 15:56 | XMS_ITS | Encounter Summary ---
Author Organization [facility] Address [address] [place] [address] Care Team Providers Care Environmental Adviser Name Role Phone Michelle Shannon MD Primary Care Provider + Encounter Details Date Type Department Care Team (Late st Contact Info) Description 08/14/2018 Results Only Imaging [facility] [phone] Chela Ta MD [address] [place] [address] [address] [place] [phone] Social History Tobacco Use Types [...] Info) Description 06/08/2024 13:30 EDT Office Visit [facility], [address] [facility] [address] [place] [address] Michelle Shannon MD [address] [place] [phone] documented as of this encounter Procedures Procedure Name Priority Date/Time Associated Diagnosis Comments MR BREAST BILATERAL W/WO CONTRAST 08/21/2018 9:17 EST documented in this encounter Results * MR BREAST BILATERAL W/WO CONTRAST (08/21/2018 9:17 EST) Anatomical Region Laterality Modality Other 08/21/2018 9:17 EST 08/22/2018 11:59 EST Narrative 08/22/2018 11:59 EST MR BREAST BILATERAL W/WO CONTRAST ??08/21/2018 9:17 AM Clinical History/Comments: 42yr old with history of atypical biopsy, positive family history, lifetime risk >20%, CAT3 MRI finding January 2018, bilateral 6month follow up recommended to document stability Comparisons: All prior mammograms, ultrasounds and recent breast MRI performed 02/09/2018. Technique: ?? The patient was placed in a dedicated breast coil in the prone position and scanned on the 3 Alana scanner. ??All images were obtained axially. ??Initially, T1-weighted wre-nur-jtdcoifjqo images were obtained followed by T2-weighted images. ??Dynamic high temporal resolution and high spatial resolutionT1-weighted fat-suppressed images were then obtained, first pre-gadolinium followed by four sets of images after gadolinium was administered intravenously. ??8 mL of Gadavist were administered. The images were reviewed on a PACS workstation and independent [employer] workstation with and without subtraction. ??3D reconstructions were obtained in coronal, sagittal and MIP projections. Findings right breast: There is marked background parenchymal enhancement; more so than on the MRI from 6 months prior. Mammographically, the breast parenchyma is heterogeneously dense. The focus of enhancement for which this 6 month follow-up MRI is being performed is stable in size, degree of enhancement and kinetics. It is located at approximately the 3 o'clock position anteriorly and measures 4 mm in dimension. This is seen on the 1st axial fat-sat postcontrast data sequence image #507, series A:5. There are multiple new foci of enhancement when compared with the prior MRI likely related to phase of menstrual cycle. ?? There are no abnormal lymph nodes identified. Findings left breast: There is marked background parenchymal enhancement; more so than seen on the prior MRI. Mammographically, the breast parenchyma is heterogeneously dense. Clip artifact from prior biopsy is present in the posterior aspect of the upper outer quadrant. The focus of enhancement for which this 6 month follow-up MRI is being performed as a stable appearance in size, morphology and kinetics. It is located at approximately the 12 o'clock position and is seen on image #677 of the 1st axial T1 fat-sat postcontrast data set (A: 5). There are multiple new foci of enhancement, similar to the right breast and most likely related to phase of menstrual cycle. There are no abnormal lymph nodes. Impression bilateral breasts: BI-RADS Category 3. Probably benign. Marked background parenchymal enhancement which is increased bilaterally compared with the prior exam. There are multiple new foci of enhancement bilaterally all likely secondary to phase of menstrual cycle. The 2 foci of enhancement seen on the MRI from 6 months prior are stable. These findings are all likely benign. Recommendation bilateral breasts: 6 month follow-up bilateral contrast-enhanced MRI is recommended to ensure continued stability. This will be due in January 2019. Overall assessment: Probably benign. Dr. Ta will notify the patient of the above findings recommendations. The patient will also be notified of her breast imaging results via a lay letter from Radiology. ??Radiology will contact the patient directly regarding any findings which require additional imaging. Portions of this document may have been prepared using voice recognition software or keyboard data support analyst. ??Minor irregularities or keyboard misprints may be present. Procedure Note Vielka Santa MD - 08/22/2018 MR BREAST BILATERAL W/WO CONTRAST 08/21/2018 9:17 AM Clinical History/Comments: 42yr old with history of atypical biopsy, positive family history, lifetime risk >20%, CAT3 MRI finding January 2018, bilateral 6month follow up recommended to document stability Comparisons: All prior mammograms, ultrasounds and recent breast MRI performed 02/09/2018. Technique: The patient was placed in a dedicated breast coil in the prone position and scanned on the 3 Alana scanner. All images were obtained axially. Initially, T1-weighted ciw-eva-xgznnwtxwz images were obtained followed by T2-weighted images. Dynamic high temporal resolution and high spatial resolutionT1-weighted fat-suppressed images were then obtained, first pre-gadolinium followed by four sets of images after gadolinium was administered intravenously. 8 mL of Gadavist were administered. The images were reviewed on a PACS workstation and independent [employer] workstation with and without subtraction. 3D reconstructions were obtained in coronal, sagittal and MIP projections. Findings right breast: There is marked background parenchymal enhancement; more so than on the MRI from 6 months prior. Mammographically, the breast parenchyma is heterogeneously dense. The focus of enhancement for which this 6 month follow-up MRI is being performed is stable in size, degree of enhancement and kinetics. It is located at approximately the 3 o'clock position anteriorly and measures 4 mm in dimension. This is seen on the 1st axial fat-sat postcontrast data sequence image #507, series A:5. There are multiple new foci of enhancement when compared with the prior MRI likely related to phase of menstrual cycle. There are no abnormal lymph nodes identified. Findings left breast: There is marked background parenchymal enhancement; more so than seen on the prior MRI. Mammographically, the breast parenchyma is heterogeneously dense. Clip artifact from prior biopsy is present in the posterior aspect of the upper outer quadrant. The focus of enhancement for which this 6 month follow-up MRI is being performed as a stable appearance in size, morphology and kinetics. It is located at approximately the 12 o'clock position and is seen on image #677 of the 1st axial T1 fat-sat postcontrast data set (A: 5). There are multiple new foci of enhancement, similar to the right breast and most likely related to phase of menstrual cycle. There are no abnormal lymph nodes. Impression bilateral breasts: BI-RADS Category 3. Probably benign. Marked background parenchymal enhancement which is increased bilaterally compared with the prior exam. There are multiple new foci of enhancement bilaterally all likely secondary to phase of menstrual cycle. The 2 foci of enhancement seen on the MRI from 6 months prior are stable. These findings are all likely benign. Recommendation bilateral breasts: 6 month follow-up bilateral contrast-enhanced MRI is recommended to ensure continued stability. This will be due in January 2019. Overall assessment: Probably benign. Dr. Ta will notify the patient of the above findings recommendations. The patient will also be notified of her breast imaging results via a lay letter from Radiology. Radiology will contact the patient directly regarding any findings which require additional imaging. Portions of this document may have been prepared using voice recognition software or keyboard data support analyst. Minor irregularities or keyboard misprints may be present. Chela Ta MD IMG MRI ORDERABLES documented in this encounter Visit Diagnoses Not on filedocumented in this encounter Care Teams Environmental Adviser Relationship Specialty Start Date End Date Michelle Shannon MD [address] [place] [phone] PCP - General 09/08/11 documented as of this encounter
--- OUTSIDE RECORDS SUMMARY | 2024-04-28 15:56 | XMS_ITS | Encounter Summary ---
Author Organization [facility] Address [address] [place] [address] Care Team Providers Care Cottage Master Name Role Phone Michelle Shannon MD Primary Care Provider + Reason for Visit * Reason Onset Date Comments Medications Refill 12/21/2018 Encounter Details Date Type Department Care Team (Late st Contact Info) Description 12/21/2018 Refill Benito Crowley MD, [facility] [address] [place], [place] [phone] Chanel Mac RN Medications Refill Social History [...] at bedtime. Daily Max: 1 mg 28 tablet 2 12/21/2018 04/06/2019 dextroamphetamine-amphet amine (ADDERALL XR) 10 mg XR capsule Take 1 capsule by mouth 2 times daily. Noon and 4pm Daily Max: 20 mg 60 capsule 12/21/2018 01/18/2019 dextroamphetamine-amphet amine (ADDERALL XR) 20 mg XR capsule Take 1 capsule by mouth daily. Every morning Daily Max: 1 capsule 30 capsule 12/21/2018 01/16/2019 documented in this encounter Miscellaneous Notes * Telephone Encounter - Chanel Mac RN - 12/21/2018 1027 EDT Pt request refill on: Klonopin 1 mg , PO q hs. Last refilled 08/30/2018. Disp 28/ 2 refill Adderall XR 10 mgLast refilled 10/16/2018. Disp 60/ 0 Adderall XR 20 mg Refilled 11/17/2018. Disp 30/0 . Last office visit 10/16/2018.Chanel Mac RN documented in this encounter Plan of Treatment Upcoming Encounters Date Type Department Care Team (Late st Contact Info) Description 06/08/2024 13:30 EDT Office Visit [facility] [address] [facility] [address] [place], [place] [phone] Michelle Shannon MD [address] [place] [phone] documented as of this encounter Visit Diagnoses Not on filedocumented in this encounter Discontinued Medications Medication Sig Discontinue Reason Start Date End Da te dextroamphetamine-amphet amine (ADDERALL XR) 20 mg XR capsule Take 1 Cap by mouth daily. Every morning Daily Max: 1 Cap Reorder 11/17/2018 12/21/2018 dextroamphetamine-amphet amine (ADDERALL XR) 10 mg XR capsule Take 1 Cap by mouth 2 times daily. Noon and 4pm Daily Max: 20 mg Reorder 10/16/2018 12/21/2018 clonazePAM (KLONOPIN) 1 mg tablet Take 1 Tab by mouth at bedtime. Daily Max: 1 mg Reorder 08/30/2018 12/21/2018 documented as of this encounter Care Teams Cottage Master Relationship Specialty Start Date End Date Michelle Shannon MD [address] [place] [phone] PCP - General 09/08/11 documented as of this encounter
--- OUTSIDE RECORDS SUMMARY | 2024-04-28 15:56 | XMS_ITS | Encounter Summary ---
Author Organization [facility] Address [address] [place] [address] Care Team Providers Care Shingle Catcher Name Role Phone Michelle Shannon MD Primary Care Provider + Reason for Visit * Reason Onset Date Comments Medications Refill 10/02/2018 Encounter Details Date Type Department Care Team (Late st Contact Info) Description 10/02/2018 Refill [facility] [address] [place], [place] [phone] Michelle Shannon MD [address] [place] [phone] Medications Refill Social History Tobacco [...] mouth daily. 90 Tab 1 10/02/2018 04/20/2019 documented in this encounter Plan of Treatment Upcoming Encounters Date Type Department Care Team (Late st Contact Info) Description 06/08/2024 13:30 EDT Office Visit [facility] [address] [place] [address] Michelle Shannon MD [address] [place] [phone] documented as of this encounter Visit Diagnoses Not on filedocumented in this encounter Discontinued Medications Medication Sig Discontinue Reason Start Date End Da te pantoprazole (PROTONIX) 40 mg tablet take 1 tablet by mouth once daily Reorder 06/29/2018 10/02/2018 documented as of this encounter Care Teams Shingle Catcher Relationship Specialty Start Date End Date Michelle Shannon MD [address] [place] [phone] PCP - General 09/08/11 documented as of this encounter
--- OUTSIDE RECORDS SUMMARY | 2024-04-28 15:56 | XMS_ITS | Encounter Summary ---
Author Organization [facility] Address [address] [place] [address] Care Team Providers Care Picker And Sorter Load And Unload Name Role Phone Michelle Shannon MD Primary Care Provider + Reason for Visit * Reason Onset Date Comments Medications Refill 11/17/2018 Encounter Details Date Type Department Care Team (Late st Contact Info) Description 11/17/2018 Orders Only [facility] [address] [place] [phone] Taryn Salazar RN [address] [place] [phone] Attention deficit hyperactivity disorder (ADHD), unspecified ADHD [...] morning Daily Max: 1 Cap 30 Cap 11/17/2018 12/21/2018 documented in this encounter Plan of Treatment Upcoming Encounters Date Type Department Care Team (Late st Contact Info) Description 06/08/2024 13:30 EDT Office Visit [facility] [address] [place], [place] [phone] Michelle Shannon MD [address] [place] [phone] documented as of this encounter Visit Diagnoses Diagnosis Attention deficit hyperactivity disorder (ADHD), unspecified ADHD type- Primary documented in this encounter Discontinued Medications Medication Sig Discontinue Reason Start Date End Da te dextroamphetamine-amphet amine (ADDERALL XR) 20 mg XR capsule Take 1 Cap by mouth daily. Every morning Daily Max: 1 Cap Reorder 10/11/2018 11/17/2018 documented as of this encounter Care Teams Picker And Sorter Load And Unload Relationship Specialty Start Date End Date Michelle Shannon MD [address] [place] [phone] PCP - General 09/08/11 documented as of this encounter
--- OUTSIDE RECORDS SUMMARY | 2024-04-28 15:56 | XMS_ITS | Encounter Summary ---
Author Organization [facility] Address [address] [place] [address] Care Team Providers Care Director Of Government Sales Name Role Phone Michelle Shannon MD Primary Care Provider + Reason for Visit * Reason Comments ADD Encounter Details Date Type Department Care Team (Late st Contact Info) Description 01/18/2019 9:00 EDT Office Visit [facility] [address] [place], [place] [phone] Yenifer Rolon, ANCILLARY SPECIALIST [address] [place] [phone] Attention deficit hyperactivity disorder (ADHD), unspecified ADHD type (Primary Dx); Impingement syndrome of right shoulder; MDD (major depressive disorder), recurrent episode, moderate ([facility]) Social History Tobacco Use Types Packs/Day Years [...] Sign Reading Time Taken Comments Blood Pressure 106/70 01/18/2019 0916 EDT Pulse 88 01/18/2019 0916 EDT Temperature - - Respiratory Rate - - Oxygen Saturation 99% 01/18/2019 0916 EDT Inhaled Oxygen Concentration - - Weight 80.3 kg (177 lb) 01/18/2019 0916 EDT Height - - Body Mass Index 29.45 01/03/2019 1249 EDT documented in this encounter Ordered Prescriptions Prescription Sig Dispensed Refills Start Date End Da te dextroamphetamine-amphe tamine (ADDERALL XR) 10 mg XR capsule Take one capsule at 4pm 30 capsule 01/20/2019 04/20/2019 dextroamphetamine-amphe tamine (ADDERALL XR) 20 mg XR capsule Take 1 capsule by mouth 2 times daily. Daily Max: 2 capsules 60 capsule 01/18/2019 03/08/2019 documented in this encounter Progress Notes * Yenifer Rolon, ANCILLARY SPECIALIST - 01/18/2019 0900 EDT Subjective: Patient ID: Jane Blair is an 43 y.o. female. No chief complaint on file. FRANCES Lara presents in follow up for ADD. She is now working at the [employer] at [employer]. 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 She is enjoying working again, though does feel anxious when the [employer] becomes busy. She is currently taking adderall XR 20mg in the morning and then 10mg at noon and 4pm. She asks to increase her afternoon dose to 20mg. She feels her anxiety and focus is more difficult at work in the afternoon. She has been on this dose in the past and tolerated it well. She continues to do therapy, however is having a harder time making her weekly appointments with her new schedule. Her therapist is trying to find her a time that will work better for her. She saw Dr. García and had a shoulder injection. She said it did not help her pain however her rangeof motion is much improved. She takes tylenol arthritis for pain. Patient Active Problem List Diagnosis ??? Narcolepsy [...] mouth at bedtime. 30 tablet 2 ??? gcpevqu-xdelaaqckvxas-agfrlfxd (EXCEDRIN MIGRAINE) 250-250-65 mg per tablet Take [...] Daily Max: 1 mg 28 tablet 2 ??? DULoxetine (CYMBALTA) 60 mg capsule [...] Allergies Review of Systems Musculoskeletal: Positive for joint pain. Psychiatric/Behavioral: The patient is nervous/anxious. - See HPI Objective: BP 106/70 Pulse 88 Wt 80.3 kg (177 lb) SpO2 99% BMI 29.45 kg/m?? Physical Exam Constitutional: She appears well-developed and well-nourished. No distress. Cardiovascular: Normal rate, regular rhythm and normal heart sounds. Pulmonary/Chest: Effort normal and breath sounds normal. Psychiatric: She has a normal mood and affect. Assessment: ADD Right shoulder pain Depression Plan: Diagnoses and all orders for this visit: Attention deficit hyperactivity disorder (ADHD), unspecified ADHD type Impingement syndrome of right shoulder MDD (major depressive disorder), recurrent episode, moderate ([facility]) Other orders - dextroamphetamine-amphetamine (ADDERALL XR) 20 mg XR capsule; Take 1 capsule by mouth 2 times daily. Daily Max: 2 capsules - dextroamphetamine-amphetamine (ADDERALL XR) 10 mg XR capsule; Take one capsule at 4pm ADD: Ok to increase afternoon dose of adderall to 20mg daily as she feels this will be helpful with her new job Adderall XR 20mg BID and 10mg at 4pm Refilled for one month Right shoulder pain: Pain persists, though tolerable with tylenol. Range of motion significantly improved with injection Consider PT if time allows Depression: Stable on duloxetine and Abilify She is working with her counselor to find a time that she can continue seeing her weekly that will work with her new schedule Follow up in 3 months, sooner prn. Yenifer Rolon APRN documented in this encounter Plan of Treatment Upcoming Encounters Date Type Department Care Team (Late st Contact Info) Description 06/08/2024 13:30 EDT Office Visit [facility] [address] [place] [address] Michelle Shannon MD [address] [place] [phone] documented as of this encounter Visit Diagnoses Diagnosis Attention deficit hyperactivity disorder (ADHD), unspecified ADHD type- Primary Impingement syndrome of right shoulder Other affections of shoulder region, not elsewhere classified MDD (major depressive disorder), recurrent episode, moderate ([facility]) Major depressive disorder, recurrent episode, moderate documented in this encounter Discontinued Medications Medication Sig Discontinue Reason Start Date End Da te dextroamphetamine-amphet amine (ADDERALL XR) 20 mg XR capsule Take 1 capsule by mouth daily. Every morning Daily Max: 1 capsule Reorder 01/21/2019 01/18/2019 dextroamphetamine-amphet amine (ADDERALL XR) 10 mg XR capsule Take 1 capsule by mouth 2 times daily. Noon and 4pm Daily Max: 20 mg Reorder 12/21/2018 01/18/2019 documented as of this encounter Care Teams Director Of Government Sales Relationship Specialty Start Date End Date Michelle Shannon MD [address] [place] [phone] PCP - General 09/08/11 documented as of this encounter
--- OUTSIDE RECORDS SUMMARY | 2024-04-28 15:56 | XMS_ITS | Encounter Summary ---
Author Organization [facility] Address [address] [place] [address] Care Team Providers Care Physician Chief Of Pathology Name Role Phone Michelle Shannon MD Primary Care Provider + Reason for Visit * Reason Onset Date Comments Medications Refill 08/30/2018 Encounter Details Date Type Department Care Team (Late st Contact Info) Description 08/30/2018 Refill Benito Crowley MD, [facility] [address] [place], [place] [address] Taryn Salazar RN [address] [place] [phone] Medications Refill Social History Tobacco [...] Notes * Telephone Encounter - Taryn Salazar - 08/30/2018 1648 EST Pt left a message to ask for clonazepam refill. Last ordered with 2 refills 05/31/2018. Pended to Dr. Shannon. Taryn Salazar RN documented in this encounter Plan of Treatment Upcoming Encounters Date Type Department Care Team (Late st Contact Info) Description 06/08/2024 13:30 EDT Office Visit [facility] [address] [place], [place] [phone] Michelle Shannon MD [address] [place] [phone] documented as of this encounter Visit Diagnoses Not on filedocumented in this encounter Care Teams Physician Chief Of Pathology Relationship Specialty Start Date End Date Michelle Shannon MD [address] [place] [phone] PCP - General 09/08/11 documented as of this encounter
--- OUTSIDE RECORDS SUMMARY | 2024-04-28 15:56 | XMS_ITS | Encounter Summary ---
Author Organization [facility] Address [address] [place] [address] Care Team Providers Care Cardiovascular Invasive Specialist Name Role Phone Michelle Shannon MD Primary Care Provider + Reason for Visit * Reason Onset Date Comments Medications Refill 07/30/2019 Encounter Details Date Type Department Care Team (Late st Contact Info) Description 07/30/2019 Refill [facility] [address] [place] [phone] Michelle Shannon MD [address] [place] [phone] Medications Refill Social History Tobacco Use [...] by mouth at bedtime. 90 Tab 2 07/30/2019 12/23/2019 clonazePAM (KLONOPIN) 1 mg tablet Take 1 Tab by mouth at bedtime. Daily Max: 1 mg 28 Tab 2 07/30/2019 08/28/2019 pantoprazole (PROTONIX) 40 mg tablet Take 1 Tab by mouth daily. 90 Tab 1 07/30/2019 11/09/2019 documented in this encounter Miscellaneous Notes * Telephone Encounter - Mandi Leon - 07/30/2019 1219 EST refills documented in this encounter Plan of Treatment Upcoming Encounters Date Type Department Care Team (Late st Contact Info) Description 06/08/2024 13:30 EDT Office Visit [facility] [address] [place] [address] Michelle Shannon MD [address] [place] [phone] documented as of this encounter Visit Diagnoses Not on filedocumented in this encounter Discontinued Medications Medication Sig Discontinue Reason Start Date End Da te pantoprazole (PROTONIX) 40 mg tablet Take 1 Tab by mouth daily. Reorder 04/20/2019 07/30/2019 clonazePAM (KLONOPIN) 1 mg tablet Take 1 Tab by mouth at bedtime. Daily Max: 1 mg Reorder 04/06/2019 07/30/2019 ARIPiprazole (ABILIFY) 10 mg tablet Take 1 Tab by mouth at bedtime. Reorder 05/15/2019 07/30/2019 documented as of this encounter Care Teams Cardiovascular Invasive Specialist Relationship Specialty Start Date End Date Michelle Shannon MD [address] [place] [phone] PCP - General 09/08/11 documented as of this encounter
--- OUTSIDE RECORDS SUMMARY | 2024-04-28 15:57 | XMS_ITS | Encounter Summary ---
Author Organization [facility] Address [address] [place] [address] Care Team Providers Care Starch Dumper Name Role Phone Michelle Shannon MD Primary Care Provider + Reason for Visit * Reason Onset Date Comments Medications Refill 05/17/2018 Encounter Details Date Type Department Care Team (Late st Contact Info) Description 05/17/2018 Refill [facility] [address] [place] [phone] Michelle Shannon MD [address] [place] [phone] Medications Refill Social History Tobacco Use Types Packs/Day Years Used Date Smoking Tobacco: Never Alcohol Use Standard Drinks/Week Comments Not Asked 0 (1 standard drink = 0.6 oz [...] morning Daily Max: 1 Cap 30 Cap 05/17/2018 06/19/2018 dextroamphetamine-ampheta mine (ADDERALL XR) 10 mg XR capsule Take 1 Cap by mouth 2 times daily. Noon and 4pm Daily Max: 20 mg 60 Cap 05/17/2018 08/07/2018 documented in this encounter Miscellaneous Notes * Telephone Encounter - Ritika Morris - 05/17/2018 1533 EDT RX refill documented in this encounter Plan of Treatment Upcoming Encounters Date Type Department Care Team (Late st Contact Info) Description 06/08/2024 13:30 EDT Office Visit [facility] [address] [place] [address] Michelle Shannon MD [address] [place] [phone] documented as of this encounter Visit Diagnoses Not on filedocumented in this encounter Discontinued Medications Medication Sig Discontinue Reason Start Date End Da te dextroamphetamine-amphe tamine (ADDERALL XR) 10 mg XR capsule Take 1 Cap by mouth 2 times daily. Noon and 4pm Earliest Fill Date: 05/15/18 Daily Max: 20 mg Reorder 05/15/2018 05/17/2018 dextroamphetamine-amphe tamine (ADDERALL XR) 20 mg XR capsule Take 1 Cap by mouth daily. Every morning Earliest Fill Date: 05/15/18 Daily Max: 1 Cap Reorder 05/15/2018 05/17/2018 documented as of this encounter Care Teams Starch Dumper Relationship Specialty Start Date End Date Michelle Shannon MD [address] [place] [phone] PCP - General 09/08/11 documented as of this encounter
--- OUTSIDE RECORDS SUMMARY | 2024-04-28 15:57 | XMS_ITS | Encounter Summary ---
Author Organization [facility] Address [address] [place] [address] Care Team Providers Care Advisory Internship Name Role Phone Michelle Shannon MD Primary Care Provider + Reason for Visit * Reason Onset Date Comments Medication Management 03/15/2018 Encounter Details Date Type Department Care Team (Late st Contact Info) Description 03/15/2018 Telephone [facility] [address] [place] [address] Michelle Shannon MD [address] [place] [phone] Medication Management Social History Tobacco Use [...] * Telephone Encounter - Mandi Leon - 03/15/2018 9859 EDT Pt is requesting a dose change in her Adderall and Xanax for leg pain. Pt missed her appt yesterday. We will schedule pt for tomorrow and refill pt's current Adderall script today but Dr. Shannon will not make dose changes or prescribe anything new until pt is seen. Mandi Leon MA documented in this encounter Plan of Treatment Upcoming Encounters Date Type Department Care Team (Late st Contact Info) Description 06/08/2024 13:30 EDT Office Visit [facility] [address] [place], [place] [phone] Michelle Shannon MD [address] [place] [phone] documented as of this encounter Visit Diagnoses Not on filedocumented in this encounter Care Teams Advisory Internship Relationship Specialty Start Date End Date Michelle Shannon MD [address] [place] [phone] PCP - General 09/08/11 documented as of this encounter
--- OUTSIDE RECORDS SUMMARY | 2024-04-28 15:57 | XMS_ITS | Encounter Summary ---
Author Organization [facility] Address [address] [place] [address] Care Team Providers Care Beauty Specialist Name Role Phone Michelle Shannon MD Primary Care Provider + Encounter Details Date Type Department Care Team (Late st Contact Info) Description 11/18/2017 Orders Only [facility] [address] [place] [address] Michelle Shannon MD [address] [place] [phone] GERD without esophagitis (Primary Dx) Social History Tobacco Use Types [...] 1 Tab by mouth daily. 90 Tab 11/18/2017 03/26/2018 documented in this encounter Plan of Treatment Upcoming Encounters Date Type Department Care Team (Late st Contact Info) Description 06/08/2024 13:30 EDT Office Visit [facility] [address] [place], [place] [phone] Michelle Shannon MD [address] [place] [phone] documented as of this encounter Visit Diagnoses Diagnosis GERD without esophagitis- Primary Esophageal reflux documented in this encounter Care Teams Beauty Specialist Relationship Specialty Start Date End Date Michelle Shannon MD [address] [place] [phone] PCP - General 09/08/11 documented as of this encounter
--- OUTSIDE RECORDS SUMMARY | 2024-04-28 15:57 | XMS_ITS | Encounter Summary ---
Author Organization [facility] Address [address] [place] [address] Care Team Providers Care Shoelace Tipping Machine Operator Name Role Phone Michelle Shannon MD Primary Care Provider + Encounter Details Date Type Department Care Team (Late st Contact Info) Description 02/09/2018 Results Only [facility] [phone] Chela Ta MD [address] [place] [address] [address] [place] [phone] Social History Tobacco Use Types [...] Info) Description 06/08/2024 13:30 EDT Office Visit [facility] [address] [facility] [address] [place] [address] Michelle Shannon MD [address] [place] [phone] documented as of this encounter Procedures Procedure Name Priority Date/Time Associated Diagnosis Comments MR BREAST BILATERAL W/WO CONTRAST 02/09/2018 17:30 EDT documented in this encounter Results * MR BREAST BILATERAL W/WO CONTRAST (02/09/2018 17:30 EDT) Anatomical Region Laterality Modality Other 02/09/2018 17:3 0 EDT 02/10/2018 15:41 EDT Narrative 02/10/2018 15:41 EDT MR BREAST BILATERAL W/WO CONTRAST ??02/09/2018 5:30 PM Signs and Symptoms/Comments: >20% lifetime risk due to family history Comparison: Mammography and stereotactic biopsy of 2018. Comparison is also made to prior diagnostic ultrasound in 2018. Technique: ?? The patient was placed in a dedicated breast coil in the prone position and scanned on the 3 Alana scanner. ??All images were obtained axially. ??Initially, T1-weighted [id number] images were obtained followed by T2-weighted images. ??Dynamic high temporal resolution and high spatial resolution T1-weighted fat-suppressed images were then obtained, first pregadolinium, followed by four sets of images after gadolinium was administered intravenously. ??7.7 cc of Gadavist was administered. The images were reviewed on a PACS workstation and independent [employer] ([employer]) workstation with and without subtraction. ??3D reconstructions were obtained in coronal, sagittal and MIP projections. ? Left breast findings: There is heterogeneously dense tissue and marked background parenchymal enhancement. There are multiple benign cysts, many with enhancing rims, consistent with inflammation. There is a small enhancing focus located at approximately 12 o'clock in the central upper left breast which demonstrates rapid enhancement and washout kinetics. It measures 3 mm in diameter. This is located on image 672 of the 1st postcontrast axial sequence and image 382 of the sagittally reconstructed sequence. The clip marking the site of the benign biopsy in the lateral aspect of the left breast is noted. Right breast findings: There is heterogeneously dense tissue and marked background parenchymal enhancement. There are multiple small benign cysts within the right breast. There is a small focus of enhancement in the right breast located at approximately 3 o'clock anteriorly. It measures 4 mm in diameter. This demonstrates rapid enhancement with mostly plateau kinetics. It is best seen on image 597 of the 1st postcontrast sequence and image 402 of the sagittal reconstructed sequence. There are no additional findings of concern in the right breast. Impression both breasts: BI-RADS Category 3, likely benign. Recommendation: Six-month follow-up MRI is recommended to reevaluate the small focus in the right breast at 3 o'clock and in the left breast at 12 o'clock. Overall assessment: BI-RADS Category Assessment 3: ??Probably benign. The patient will be notified of the MRI results by telephone call from a member of the radiology department. In addition, she will receive a lay letter from radiology. Procedure Note Susana Lake MD - 02/10/2018 MR BREAST BILATERAL W/WO CONTRAST 02/09/2018 5:30 PM Signs and Symptoms/Comments: >20% lifetime risk due to family history Comparison: Mammography and stereotactic biopsy of 2018. Comparison is also made to prior diagnostic ultrasound in 2018. Technique: The patient was placed in a dedicated breast coil in the prone position and scanned on the 3 Alana scanner. All images were obtained axially. Initially, T1-weighted [id number] images were obtained followed by T2-weighted images. Dynamic high temporal resolution and high spatial resolution T1-weighted fat-suppressed images were then obtained, first pregadolinium, followed by four sets of images after gadolinium was administered intravenously. 7.7 cc of Gadavist was administered. The images were reviewed on a PACS workstation and independent [employer] ([employer]) workstation with and without subtraction. 3D reconstructions were obtained in coronal, sagittal and MIP projections. Left breast findings: There is heterogeneously dense tissue and marked background parenchymal enhancement. There are multiple benign cysts, many with enhancing rims, consistent with inflammation. There is a small enhancing focus located at approximately 12 o'clock in the central upper left breast which demonstrates rapid enhancement and washout kinetics. It measures 3 mm in diameter. This is located on image 672 of the 1st postcontrast axial sequence and image 382 of the sagittally reconstructed sequence. The clip marking the site of the benign biopsy in the lateral aspect of the left breast is noted. Right breast findings: There is heterogeneously dense tissue and marked background parenchymal enhancement. There are multiple small benign cysts within the right breast. There is a small focus of enhancement in the right breast located at approximately 3 o'clock anteriorly. It measures 4 mm in diameter. This demonstrates rapid enhancement with mostly plateau kinetics. It is best seen on image 597 of the 1st postcontrast sequence and image 402 of the sagittal reconstructed sequence. There are no additional findings of concern in the right breast. Impression both breasts: BI-RADS Category 3, likely benign. Recommendation: Six-month follow-up MRI is recommended to reevaluate the small focus in the right breast at 3 o'clock and in the left breast at 12 o'clock. Overall assessment: BI-RADS Category Assessment 3: Probably benign. The patient will be notified of the MRI results by telephone call from a member of the radiology department. In addition, she will receive a lay letter from radiology. Chela Ta MD IMG MRI ORDERABLES documented in this encounter Visit Diagnoses Not on filedocumented in this encounter Care Teams Shoelace Tipping Machine Operator Relationship Specialty Start Date End Date Michelle Shannon MD [address] [place] [phone] PCP - General 09/08/11 documented as of this encounter
--- OUTSIDE RECORDS SUMMARY | 2024-04-28 15:57 | XMS_ITS | Encounter Summary ---
Author Organization [facility] Address [address] [place] [address] Care Team Providers Care Iron Worker Name Role Phone Michelle Shannon MD Primary Care Provider + Encounter Details Date Type Department Care Team (Late st Contact Info) Description 06/10/2017 Orders Only [facility] [address] [place] [address] Michelle Shannon MD [address] [place] [phone] Anxiety (Primary Dx) Social History Tobacco Use [...] by mouth at bedtime 28 Tab 2 06/10/2017 07/26/2017 documented in this encounter Plan of Treatment Upcoming Encounters Date Type Department Care Team (Late st Contact Info) Description 06/08/2024 13:30 EDT Office Visit [facility] [address] [place] [address] Michelle Shannon MD [address] [place] [phone] documented as of this encounter Visit Diagnoses Diagnosis Anxiety- Primary Anxiety state, unspecified documented in this encounter Discontinued Medications Medication Sig Discontinue Reason Start Date End Da te clonazePAM (KLONOPIN) 1 mg tablet take 1 tablet by mouth at bedtime Reorder 04/11/2015 06/10/2017 documented as of this encounter Care Teams Iron Worker Relationship Specialty Start Date End Date Michelle Shannon MD [address] [place] [phone] PCP - General 09/08/11 documented as of this encounter
--- OUTSIDE RECORDS SUMMARY | 2024-04-28 15:57 | XMS_ITS | Encounter Summary ---
Author Organization 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 Daily Max: 30 mg 21 Cap 03/15/2018 03/16/2018 documented in this encounter Progress Notes * Michelle Shannon MD - 03/15/2018 5234 EDT I called the pharmacy and learned the Jane would be out of her medication today. I sent over 1 weekof medication, but if she does not pick it up tonight and her dose is altered tomorrow, the pharmacist will destroy the script and replace it with a new one. documented in this encounter Plan of Treatment Upcoming Encounters Date Type Department Care Team (Late st Contact Info) Description 06/08/2024 13:30 EDT Office Visit [facility] [address] [facility] [address] [place], [place] [phone] Michelle Shannon MD [address] [place] [phone] documented as of this encounter Visit Diagnoses Diagnosis Narcolepsy without cataplexy- Primary documented in this encounter Discontinued Medications Medication Sig Discontinue Reason Start Date End Da te dextroamphetamine-amphe tamine (ADDERALL XR) 10 mg XR capsule Take 1 Cap by mouth 3 times daily. Earliest Fill Date: 02/08/18 Daily Max: 30 mg Reorder 02/08/2018 03/15/2018 documented as of this encounter Care Teams Epic Prelude Analyst Relationship Specialty Start Date End Date Michelle Shannon MD [address] [place] [phone] PCP - General 09/08/11 documented as of this encounter
--- OUTSIDE RECORDS SUMMARY | 2024-04-28 15:57 | XMS_ITS | Encounter Summary ---
Author Organization [facility] Address [address] [place] [address] Care Team Providers Care Injection Molding Machine Tender Name Role Phone Michelle Shannon MD Primary Care Provider + Reason for Visit * Reason Onset Date Comments Medications Refill 07/26/2017 Encounter Details Date Type Department Care Team (Late st Contact Info) Description 07/26/2017 Refill [facility] [address] [place], [place] [phone] Michelle Shannon MD [address] [place] [phone] Medications Refill Social History Tobacco [...] by mouth at bedtime 28 Tab 2 07/27/2017 09/16/2017 documented in this encounter Plan of Treatment Upcoming Encounters Date Type Department Care Team (Late st Contact Info) Description 06/08/2024 13:30 EDT Office Visit [facility] [address] [place], [place] [phone] Michelle Shannon MD [address] [place] [phone] documented as of this encounter Visit Diagnoses Not on filedocumented in this encounter Discontinued Medications Medication Sig Discontinue Reason Start Date End Da te clonazePAM (KLONOPIN) 1 mg tablet take 1 tablet by mouth at bedtime Reorder 06/10/2017 07/26/2017 documented as of this encounter Care Teams Injection Molding Machine Tender Relationship Specialty Start Date End Date Michelle Shannon MD [address] [place] [phone] PCP - General 09/08/11 documented as of this encounter
--- OUTSIDE RECORDS SUMMARY | 2024-04-28 15:57 | XMS_ITS | Encounter Summary ---
Author Organization [facility] Address [address] [place] [address] Care Team Providers Care Wrapper Stemmer Hand Name Role Phone Michelle Shannon MD Primary Care Provider + Reason for Visit * Reason Onset Date Comments Medications Refill 06/19/2018 Encounter Details Date Type Department Care Team (Late Contact Info) Description 06/19/2018 Refill [facility] [address] [place], [place] [phone] Michelle Shannon MD [address] [place] [phone] Medications Refill Social History Tobacco [...] morning Daily Max: 1 Cap 30 Cap 06/19/2018 07/25/2018 documented in this encounter Plan of Treatment Upcoming Encounters Date Type Department Care Team (Late Contact Info) Description 06/08/2024 13:30 EDT Office Visit [facility] [address] [place] [address] Michelle Shannon MD [address] [place] [phone] documented as of this encounter Visit Diagnoses Not on filedocumented in this encounter Discontinued Medications Medication Sig Discontinue Reason Start Date End Da te dextroamphetamine-amphet amine (ADDERALL XR) 20 mg XR capsule Take 1 Cap by mouth daily. Every morning Daily Max: 1 Cap Reorder 05/17/2018 06/19/2018 documented as of this encounter Care Teams Wrapper Stemmer Hand Relationship Specialty Start Date End Date Michelle Shannon MD [address] [place] [phone] PCP - General 09/08/11 documented as of this encounter
--- OUTSIDE RECORDS SUMMARY | 2024-04-28 15:57 | XMS_ITS | Encounter Summary ---
Author Organization [facility] Address [address] [place] [address] Care Team Providers Care Mutuel Department Manager Name Role Phone Michelle Shannon MD Primary Care Provider + Reason for Visit * Reason Comments Follow-up ADD Encounter Details Date Type Department Care Team (Late st Contact Info) Description 06/17/2017 10:00 EDT Office Visit [facility] [address] [place] [phone] Michelle Shannon MD [address] [place] [phone] GERD without esophagitis (Primary Dx); Allergic rhinitis due to other allergic trigger, unspecified rhinitis seasonality; Narcolepsy without cataplexy; REM sleep behavior disorder [...] Sign Reading Time Taken Comments Blood Pressure 96/58 06/17/2017 1002 EDT Pulse 88 06/17/2017 1002 EDT Temperature 36.9 ??C (98.5 ??F) 06/17/2017 1002 EDT Respiratory Rate - - Oxygen Saturation 98% 06/17/2017 1002 EDT Inhaled Oxygen Concentration - - Weight 76.2 kg (168 lb) 06/17/2017 1002 EDT Height - - Body Mass Index 27.96 06/24/2016 1121 EDT documented in this encounter Ordered Prescriptions Prescription Sig Dispensed Refills Start Date End Da te dextroamphetamine-ampheta mine (ADDERALL) 10 mg tablet One tab by mouth tid 84 Tab 06/17/2017 06/24/2017 dextroamphetamine-ampheta mine (ADDERALL) 10 mg tablet Take 1 Tab by mouth 3 times daily. Daily Max: 30 mg 84 Tab 07/15/2017 06/24/2017 dextroamphetamine-ampheta mine (ADDERALL) 10 mg tablet Take 1 Tab by mouth 3 times daily. Daily Max: 30 mg 84 Tab 07/15/2017 06/18/2017 dextroamphetamine-ampheta mine (ADDERALL) 10 mg tablet Take 1 Tab by mouth 3 times daily. Earliest Fill Date: 07/15/17 Daily Max: 30 mg 84 Tab 07/15/2017 06/17/2017 documented in this encounter Progress Notes * Michelle Shannon MD - 06/17/2017 1000 EDT Subjective: Patient ID: Jane Blair is an 42 y.o. female. Chief Complaint Patient presents with ??? Follow-up ??? ADD HPI Protonix is not helping as much. She admits she switched her pills to the evening when she takes her other meds. Occasionally takes 2 pills at night due to increased sx. She is not following any particular diet. Weigh is stable. Ears are plugged for over 1 month. Recently seen in the office and was given ABX and had ears flushed. Pain is better but still feels plugged. She is using Flonase and trying to pop the ears. Insurance no longer covers OTC allergy tabs. Mood is doing well. She has been back in school. Feels better socially. Motivation is good. Sleeping difficulties are unchanged. Patient Active Problem List Diagnosis ??? Narcolepsy without cataplexy ??? REM sleep behavior disorder ??? Migraine with aura ??? Episodic mood disorder ??? MDD (major depressive disorder), recurrent episode, moderate ??? GERD without esophagitis Past Medical History: Diagnosis Date ??? Depression ??? Hearing difficulty ??? Migraines ??? Unspecified cerebral artery occlusion with cerebral infarction No past surgical history on file. No family history on file. Social Social History Substance Use Topics ??? Smoking status: Never Smoker ??? Smokeless tobacco: None ??? Alcohol use None Current Outpatient Prescriptions on File Prior to Visit Medication Sig Dispense Refill ??? aripiprazole (ABILIFY) 10 mg tablet Take 10 mg by mouth daily. ??? kentxpb-tyefmpuhkfacn-kxpvdruh (EXCEDRIN MIGRAINE) 250-250-65 mg per tablet Take 1 Tab by mouthevery 6 hours as needed. Indications: MIGRAINE ??? Azelaic Acid (FINACEA) 15 % gel Apply topically 2 times daily. ??? calcium-vitamin D (OS-NOEMY D) 500 mg(1,250mg) -200 unit per tablet Take 1 Tab by mouth 2 times daily with breakfast and dinner. 60 Tab 0 ??? clonazePAM (KLONOPIN) 1 mg tablet take 1 tablet by mouth at bedtime 28 Tab 2 ??? duloxetine (CYMBALTA) 30 mg capsule Take 60 mg by mouth daily. ??? IBUPROFEN (ADVIL ORAL) Take by mouth daily as needed. ??? metroNIDAZOLE (METROGEL) 0.75 % gel Apply topically 2 times daily. ??? naratriptan (AMERGE) 2.5 mg tablet Take as directed. Indications: MIGRAINE 12 Tab 11 ??? topiramate (TOPAMAX) 50 mg tablet Take 1 Tab by mouth 2 times daily. 180 Tab 3 No current facility-administered medications on file prior to visit. No Known Allergies Review of Systems Constitutional: Positive for malaise/fatigue. Negative for chills, fever and weight loss. HENT: Positive for congestion and ear pain. Negative for sinus pain and sore throat. Eyes: Negative for pain. Respiratory: Negative for cough, shortness of breath and wheezing. Cardiovascular: Negative for chest pain and palpitations. Psychiatric/Behavioral: Positive for depression. Negative for suicidal ideas. The patient is nervous/anxious and has insomnia. - See HPI Objective: BP 96/58 Pulse 88 Temp 36.9 ??C (98.5 ??F) (Tympanic) Wt 76.2 kg (168 lb) SpO2 98% BMI 27.96 kg/m2 Physical Exam Constitutional: She appears well-developed and well-nourished. No distress. HENT: Right Ear: Hearing, external ear and ear canal normal. Tympanic membrane is injected and retracted. Left Ear: Hearing, external ear and ear canal normal. Tympanic membrane is injected and retracted. Cardiovascular: Normal rate, regular rhythm, normal heart sounds and intact distal pulses. No murmur heard. Pulmonary/Chest: Effort normal and breath sounds normal. Lymphadenopathy: She has no cervical adenopathy. Skin: Less evidence of skin picking. Face looks clear Psychiatric: Her mood appears anxious. Her speech is rapid and/or pressured. She is not agitated, not hyperactive and not withdrawn. She does not exhibit a depressed mood. Pt is mildly forgetful. She is inattentive. Assessment: Plan: Jane was seen today for follow-up and add. Diagnoses and all orders for this visit: GERD without esophagitis Allergic rhinitis due to other allergic trigger, unspecified rhinitis seasonality Narcolepsy without cataplexy REM sleep behavior disorder Other orders - melatonin 10 mg capsule; Take by mouth. - omeprazole (PRILOSEC) 20 mg capsule; Take 20 mg by mouth daily. - Discontinue: dextroamphetamine-amphetamine (ADDERALL) 10 mg tablet; Take 1 Tab by mouth 3 times daily. Earliest Fill Date: 07/15/17 Daily Max: 30 mg - Discontinue: dextroamphetamine-amphetamine (ADDERALL) 10 mg tablet; Take 1 Tab by mouth 3 times daily. Daily Max: 30 mg - dextroamphetamine-amphetamine (ADDERALL) 10 mg tablet; Take 1 Tab by mouth 3 times daily. Daily Max: 30 mg - dextroamphetamine-amphetamine (ADDERALL) 10 mg tablet; One tab by mouth tid - loratadine (CLARITIN) 10 mg tablet; Take 1 Tab by mouth daily. - fluticasone (FLONASE) 50 mcg/actuation nasal spray; Instill 2 Sprays into both nostrils daily. GERD- Possible worsening sx due to change in timing of the dose Reviewed taking Protoninx in the AM Avoid alcohol, peppermint, fatty foods and caffeine Limit carbonated beverages Sleep with the head of the bed elevated Avoid tight fitting clothing Avoid eating large meals close to bedtime Work on weight loss Eustachian tube dysfunction due to allergic rhinitis Continue Flonase Add Loratidine OTC Narcolepsy and REM sleep disorder Continue Adderall during the day and Clonazepam at night Major depressive disorder On duloxetine and Abilify Goals None Michelle Shannon MD documented in this encounter Plan of Treatment Upcoming Encounters Date Type Department Care Team (Late st Contact Info) Description 06/08/2024 13:30 EDT Office Visit [facility] [address] [facility] [address] [place], [place] [phone] Michelle Shannon MD [address] [place] [phone] documented as of this encounter Visit Diagnoses Diagnosis GERD without esophagitis- Primary Esophageal reflux Allergic rhinitis due to other allergic trigger, unspecified rhinitis seasonality Narcolepsy without cataplexy(347.00) Narcolepsy without cataplexy REM sleep behavior disorder documented in this encounter Discontinued Medications Medication Sig Discontinue Reason Start Date End Da te dextroamphetamine-amphe tamine (ADDERALL) 10 mg tablet One tab by mouth in the afternoon as needed. 06/25/2015 06/17/2017 Melatonin 3 mg Tab TAKE 1 TABLET BY MOUTH AT BEDTIME 05/26/2012 06/17/2017 LEVONORGESTREL-ETH ESTRA (KATHY ORAL) Take by mouth daily. 09/10/2010 017 dextroamphetamine-amphe tamine (ADDERALL XR) 20 mg XR capsule Take 1 Cap by mouth 2 times daily Daily Max: 2 Caps 06/25/2015 06/17/2017 dextroamphetamine-amphe tamine (ADDERALL) 10 mg tablet Take 1 Tab by mouth 3 times daily. Earliest Fill Date: 07/15/17 Daily Max: 30 mg Reorder 07/15/2017 06/17/2017 dextroamphetamine-amphe tamine (ADDERALL) 10 mg tablet Take 1 Tab by mouth 3 times daily. Daily Max: 30 mg Duplicate Therapy 07/15/2017 06/18/2017 documented as of this encounter Historical Medications * This list may reflect changes made after this encounter. Medication Sig Dispensed Refills Start Date End Date fluticasone (FLONASE) 50 mcg/actuation nasal spray Instill 2 Sprays into both nostrils daily. 0 03/31/2017 07/18/2017 loratadine (CLARITIN) 10 mg tablet Take 1 Tab by mouth daily. 0 03/31/2017 09/16/2017 omeprazole (PRILOSEC) 20 mg capsule Take 20 mg by mouth daily. 11/18/2017 melatonin 10 mg capsule Take by mouth. added in this encounter Care Teams Mutuel Department Manager Relationship Specialty Start Date End Date Michelle Shannon MD [address] [place] [phone] PCP - General 09/08/11 documented as of this encounter
--- OUTSIDE RECORDS SUMMARY | 2024-04-28 15:57 | XMS_ITS | Encounter Summary ---
Author Organization [facility] Address [address] [place] [address] Care Team Providers Care Tin Plater Name Role Phone Michelle Shannon MD Primary Care Provider + Reason for Visit * Reason Onset Date Comments Medications Refill 11/18/2017 Encounter Details Date Type Department Care Team (Late st Contact Info) Description 11/18/2017 Refill [facility] [address] [place] [address] Michelle Shannon MD [address] [place] [phone] Medications Refill Social History Tobacco Use [...] mouth 3 times daily. Earliest Fill Date: 11/18/17 Daily Max: 30 mg 84 Cap 11/18/2017 12/14/2017 documented in this encounter Miscellaneous Notes * Telephone Encounter - Azeb Sher - 11/18/2017 1131 EST Pt reported that she's out of these meds. Pt also requested protonix 40 mg. Azeb Narayanan documented in this encounter Plan of Treatment Upcoming Encounters Date Type Department Care Team (Late st Contact Info) Description 06/08/2024 13:30 EDT Office Visit [facility] [address] [place], [place] [phone] Michelle Shannon MD [address] [place] [phone] documented as of this encounter Visit Diagnoses Not on filedocumented in this encounter Discontinued Medications Medication Sig Discontinue Reason Start Date End Da te dextroamphetamine-ampheta mine (ADDERALL XR) 10 mg XR capsule Take 1 Cap by mouth 3 times daily. Daily Max: 30 mg Reorder 09/16/2017 11/18/2017 documented as of this encounter Care Teams Tin Plater Relationship Specialty Start Date End Date Michelle Shannon MD [address] [place] [phone] PCP - General 09/08/11 documented as of this encounter
--- OUTSIDE RECORDS SUMMARY | 2024-04-28 15:57 | XMS_ITS | Encounter Summary ---
Author Organization [facility] Address [address] [place] [address] Care Team Providers Care Intensive Care Ambulance Paramedic Name Role Phone Michelle Shannon MD Primary Care Provider + Encounter Details Date Type Department Care Team (Late st Contact Info) Description 06/24/2017 Orders Only [facility] [address] [place] [address] Michelle Shannon MD [address] [place] [phone] Primary narcolepsy without cataplexy (Primary Dx) Social History Tobacco [...] mouth 3 times daily. Earliest Fill Date: 07/25/17 Daily Max: 30 mg 84 Cap 07/25/2017 09/16/2017 dextroamphetamine-ampheta mine (ADDERALL XR) 10 mg XR capsule Take 1 Cap by mouth 3 times daily. Daily Max: 30 mg 84 Cap 06/24/2017 06/24/2017 documented in this encounter Plan of Treatment Upcoming Encounters Date Type Department Care Team (Late st Contact Info) Description 06/08/2024 13:30 EDT Office Visit [facility] [address] [place], [place] [phone] Michelle Shannon MD [address] [place] [phone] documented as of this encounter Visit Diagnoses Diagnosis Primary narcolepsy without cataplexy- Primary documented in this encounter Discontinued Medications Medication Sig Discontinue Reason Start Date End Da te dextroamphetamine-ampheta mine (ADDERALL) 10 mg tablet Take 1 Tab by mouth 3 times daily. Daily Max: 30 mg 07/15/2017 06/24/2017 dextroamphetamine-ampheta mine (ADDERALL) 10 mg tablet One tab by mouth tid 06/17/2017 06/24/2017 dextroamphetamine-ampheta mine (ADDERALL XR) 10 mg XR capsule Take 1 Cap by mouth 3 times daily. Daily Max: 30 mg Reorder 06/24/2017 06/24/2017 documented as of this encounter Care Teams Intensive Care Ambulance Paramedic Relationship Specialty Start Date End Date Michelle Shannon MD [address] [place] [phone] PCP - General 09/08/11 documented as of this encounter
--- OUTSIDE RECORDS SUMMARY | 2024-04-28 15:57 | XMS_ITS | Encounter Summary ---
Author Organization [facility] Address [address] [place] [address] Care Team Providers Care Waxing Machine Operator Name Role Phone Michelle Shannon MD Primary Care Provider + Reason for Visit * Reason Comments Other Encounter Details Date Type Department Care Team (Late st Contact Info) Description 03/26/2018 Refill [facility] [address] [place], [place] [phone] Michelle Shannon MD [address] [place] [phone] Other Social History Tobacco Use [...] tablet by mouth once daily 90 Tab 03/27/2018 06/29/2018 documented in this encounter Plan of Treatment Upcoming Encounters Date Type Department Care Team (Late st Contact Info) Description 06/08/2024 13:30 EDT Office Visit [facility] [address] [place], [place] [phone] Michelle Shannon MD [address] [place] [phone] documented as of this encounter Visit Diagnoses Not on filedocumented in this encounter Discontinued Medications Medication Sig Discontinue Reason Start Date End Da te pantoprazole (PROTONIX) 40 mg tablet Take 1 Tab by mouth daily. Reorder 11/18/2017 03/26/2018 documented as of this encounter Care Teams Waxing Machine Operator Relationship Specialty Start Date End Date Michelle Shannon MD [address] [place] [phone] PCP - General 09/08/11 documented as of this encounter
--- OUTSIDE RECORDS SUMMARY | 2024-04-28 15:57 | XMS_ITS | Encounter Summary ---
Author Organization [facility] Address [address] [place] [address] Care Team Providers Care Logging Superintendent Name Role Phone Michelle Shannon MD Primary Care Provider + Encounter Details Date Type Department Care Team (Latest Contact Info) Description 10/03/2017 Phlebotomy Only [facility] [address] [place], [place] [phone] Hand Etcher Helper, Outpatient Vitamin D deficiency; Abnormal weight gain; Pure hypercholesterolemia Social History Tobacco Use Types Packs/Day Years [...] Info) Description 06/08/2024 13:30 EDT Office Visit [facility] [address] [facility] [address] [place] [address] Michelle Shannon MD [address] [place] [phone] documented as of this encounter Procedures Procedure Name Priority Date/Time Associated Diagnosis Comments VITAMIN D (25,[place]) Routine 10/03/2017 12: 04 EST Vitamin D deficiency TSH Routine 10/03/2017 12:04 EST Abnormal weight gain GLUCOSE, SERUM Routine 10/03/2017 12:04 EST Abnormal weight gain LIPID PROFILE (INCLUDES CHOLESTEROL, TRIGLYCERIDES, HDL, LDL) Routine 10/03/2017 12:04 EST Pure hypercholesterolemi a Abnormal weight gain documented in this encounter Results * GLUCOSE, SERUM (10/03/2017 12:04 EST) Glucose, Serum 89 70 - 100 mg/dl 10/03/2017 13:23 EST [facility] Blood specimen (specimen) BLOOD SPECIMEN / Unknown 10/03/2017 12:04 EST 10/03/2017 12:51 EST Michelle Shannon MD CHEMISTRY & BLOO D GAS ORDERABLES Performing Organization Address City/State/[facility] Co de Phone Number [facility] [address] [place] [address] * LIPID PROFILE (INCLUDES CHOLESTEROL, TRIGLYCERIDES, HDL, LDL) (10/03/2017 12:04 EST) Cholesterol 189 mg/dl 10/03/2017 13:23 [facility] Comment: Desirable:<200 Borderline High:200-239 High:>ic=566 Triglycerides 121 mg/dl 10/03/2017 13:23 [facility] Comment: Normal:<150 Borderline High:150-199 High:200-499 Very High:>qp=184 HDL 45 mg/dl 10/03/2017 13:23 [facility] Comment: Low:<40 Normal:40-60 Desirable: >60 LDL, Calculated 120 mg/dl 8 13:23 [facility] Comment: Optimal:<100 Near Optimal:100-129 Borderline High:130-159 High:160-189 Very High:>lc=324 Chol/HDL Ratio 4.2 10/03/2017 13:23 [facility] Fasting? YES 10/03/2017 12:00 [facility] Non HDL Cholesterol 144 mg/dl 10/03/2017 13:23 EST [facility] Comment: Desirable:<130 Borderline:130-159 High: 160-189 Very High: >lv=790 Blood specimen (specimen) BLOOD SPECIMEN / Unknown 10/03/2017 12:04 EST 10/03/2017 12:51 EST Michelle Shannon MD CHEMISTRY & BLOO D GAS ORDERABLES Performing Organization Address City/[facility]/ZIP Co de Phone Number [facility] [address] [place] [address] * TSH (10/03/2017 12:04 EST) TSH 1.77 0.47 - 4.68 uIU/ml 10/03/2017 13:53 EST [facility] Blood specimen (specimen) BLOOD SPECIMEN / Unknown 10/03/2017 12:04 EST 10/03/2017 12:51 EST Michelle Shannon MD CHEMISTRY & BLOO D GAS ORDERABLES Performing Organization Address [facility] Co de Phone Number [facility] [address] [place] [address] * (ABNORMAL) VITAMIN D (25,[place]) (10/03/2017 12:04 EST) 25OH Vitamin D Tot 24.9(L) 30 - 100 ng/ml 10/03/2017 14:32 EST [facility] Comment: Reference Range: Deficient = <10 ng/ml Insufficient = 10-30 ng/ml Sufficient = 30-100 ng/ml Toxic = >100 ng/ml Blood specimen (specimen) BLOOD SPECIMEN / Unknown 10/03/2017 12:04 EST 10/03/2017 12:51 EST Michelle Shannon MD CHEMISTRY & BLOO D GAS ORDERABLES Performing Organization Address [facility]/ZIP Co de Phone Number [facility] [address] [place] [address] documented in this encounter Visit Diagnoses Diagnosis Vitamin D deficiency Unspecified vitamin D deficiency Abnormal weight gain Pure hypercholesterolemia Pure hypercholesterolemia documented in this encounter Care Teams Logging Superintendent Relationship Specialty Start Date End Date Michelle Shannon MD [address] [place] [phone] PCP - General 09/08/11 documented as of this encounter
--- OUTSIDE RECORDS SUMMARY | 2024-04-28 15:57 | XMS_ITS | Encounter Summary ---
Author Organization [facility] Address [address] [place] [address] Care Team Providers Care Perinatal Nurse Name Role Phone Michelle Shannon MD Primary Care Provider + Reason for Visit * Reason Onset Date Comments Medications Refill 01/02/2018 Encounter Details Date Type Department Care Team (Late st Contact Info) Description 01/02/2018 Refill [facility] [address] [place], [place] [phone] Michelle Shannon MD [address] [place] [phone] Medications Refill Social History Tobacco [...] Info) Description 06/08/2024 13:30 EDT Office Visit [facility] [address] [place], [place] [phone] Michelle Shannon MD [address] [place] [phone] documented as of this encounter Visit Diagnoses Not on filedocumented in this encounter Care Teams Perinatal Nurse Relationship Specialty Start Date End Date Michelle Shannon MD [address] [place] [phone] PCP - General 09/08/11 documented as of this encounter
--- OUTSIDE RECORDS SUMMARY | 2024-04-28 15:57 | XMS_ITS | Encounter Summary ---
Author Organization [facility] Address [address] [place] [address] Care Team Providers Care Army Senior Officer Name Role Phone Michelle Shannon MD Primary Care Provider + Reason for Visit * Reason Onset Date Comments Medications Refill 02/22/2018 Encounter Details Date Type Department Care Team (Late st Contact Info) Description 02/22/2018 Refill [facility] [address] [place], [place] [phone] Michelle Shannon MD [address] [place] [phone] Medications Refill Social History Tobacco [...] by mouth at bedtime 28 Tab 2 02/22/2018 05/31/2018 documented in this encounter Plan of Treatment Upcoming Encounters Date Type Department Care Team (Late st Contact Info) Description 06/08/2024 13:30 EDT Office Visit [facility] [address] [place], [place] [phone] Michelle Shannon MD [address] [place] [phone] documented as of this encounter Visit Diagnoses Not on filedocumented in this encounter Discontinued Medications Medication Sig Discontinue Reason Start Date End Da te clonazePAM (KLONOPIN) 1 mg tablet take 1 tablet by mouth at bedtime Reorder 12/14/2017 02/22/2018 documented as of this encounter Care Teams Army Senior Officer Relationship Specialty Start Date End Date Michelle Shannon MD [address] [place] [phone] PCP - General 09/08/11 documented as of this encounter
--- OUTSIDE RECORDS SUMMARY | 2024-04-28 15:57 | XMS_ITS | Encounter Summary ---
Author Organization [facility] Address [address] [place] [address] Care Team Providers Care Spanish Language Lecturer Name Role Phone Michelle Shannon MD Primary Care Provider + Reason for Visit * Reason Onset Date Comments Medications Refill 11/23/2017 Encounter Details Date Type Department Care Team (Late st Contact Info) Description 11/23/2017 Refill [facility] [address] [place], [place] [phone] Michelle Shannon MD [address] [place] [phone] Medications Refill Social History Tobacco [...] by mouth at bedtime. 30 Tab 2 11/23/2017 03/24/2018 documented in this encounter Plan of Treatment Upcoming Encounters Date Type Department Care Team (Late st Contact Info) Description 06/08/2024 13:30 EDT Office Visit [facility] [address] [place] [address] Michelle Shannon MD [address] [place] [phone] documented as of this encounter Visit Diagnoses Not on filedocumented in this encounter Discontinued Medications Medication Sig Discontinue Reason Start Date End Da te ARIPiprazole (ABILIFY) 10 mg tablet Take 1 Tab by mouth at bedtime. Reorder 10/05/2017 11/23/2017 documented as of this encounter Care Teams Spanish Language Lecturer Relationship Specialty Start Date End Date Michelle Shannon MD [address] [place] [phone] PCP - General 09/08/11 documented as of this encounter
--- OUTSIDE RECORDS SUMMARY | 2024-04-28 15:57 | XMS_ITS | Encounter Summary ---
Author Organization [facility] Address [address] [place] [address] Care Team Providers Care Broadcast Meteorologist Name Role Phone Michelle Shannon MD Primary Care Provider + Reason for Visit * Reason Onset Date Comments Medications Refill 07/07/2018 Encounter Details Date Type Department Care Team (Late st Contact Info) Description 07/07/2018 Refill [facility] [address] [place] [address] Michelle Shannon MD [address] [place] [phone] Medications Refill Social History Tobacco Use [...] by mouth at bedtime. 30 Tab 2 07/07/2018 08/14/2018 documented in this encounter Miscellaneous Notes * Telephone Encounter - Chanel Mac - 07/07/2018 1352 EDT Pt would like refill on Abilify 10 mg q hs. Last refilled 03/25/2018 by . Last seen 06/06/2018.Chanel Mac documented in this encounter Plan of Treatment Upcoming Encounters Date Type Department Care Team (Late st Contact Info) Description 06/08/2024 13:30 EDT Office Visit [facility] [address] [place], [place] [phone] Michelle Shannon MD [address] [place] [phone] documented as of this encounter Visit Diagnoses Not on filedocumented in this encounter Discontinued Medications Medication Sig Discontinue Reason Start Date End Da te ARIPiprazole (ABILIFY) 10 mg tablet Take 1 Tab by mouth at bedtime. Reorder 03/25/2018 07/07/2018 documented as of this encounter Care Teams Broadcast Meteorologist Relationship Specialty Start Date End Date Michelle Shannon MD [address] [place] [phone] PCP - General 09/08/11 documented as of this encounter
--- OUTSIDE RECORDS SUMMARY | 2024-04-28 15:57 | XMS_ITS | Encounter Summary ---
Author Organization [facility] Address [address] [place] [address] Care Team Providers Care Unix Developer Name Role Phone Michelle Shannon MD Primary Care Provider + Reason for Visit * Reason Onset Date Comments Medications Refill 05/17/2018 Encounter Details Date Type Department Care Team (Late st Contact Info) Description 05/17/2018 Refill [facility] [address] [place], [place] [phone] Michelle Shannon MD [address] [place] [phone] Medications Refill Social History Tobacco [...] Telephone Encounter - Ritika Morris - 05/17/2018 1523 EDT RX refill documented in this encounter Plan of Treatment Upcoming Encounters Date Type Department Care Team (Late st Contact Info) Description 06/08/2024 13:30 EDT Office Visit [facility] [address] [place] [address] Michelle Shannon MD [address] [place] [phone] documented as of this encounter Visit Diagnoses Not on filedocumented in this encounter Care Teams Unix Developer Relationship Specialty Start Date End Date Michelle Shannon MD [address] [place] [phone] PCP - General 09/08/11 documented as of this encounter
--- OUTSIDE RECORDS SUMMARY | 2024-04-28 15:57 | XMS_ITS | Encounter Summary ---
Author Organization [facility] Address [address] [place] [address] Care Team Providers Care Cleaning Team Member Name Role Phone Michelle Shannon MD Primary Care Provider + Reason for Visit * Reason Comments ADD Encounter Details Date Type Department Care Team (Late st Contact Info) Description 03/16/2018 15:30 EDT Office Visit [facility] [address] [place], [place] [phone] Yenifer Rolon, HAUNTED HISTORY TOUR GUIDE [address] [place] [phone] Attention deficit hyperactivity disorder (ADHD), [...] Sign Reading Time Taken Comments Blood Pressure 106/76 03/16/2018 1536 EDT Pulse 83 03/16/2018 1536 EDT Temperature - - Respiratory Rate - - Oxygen Saturation 98% 03/16/2018 1536 EDT Inhaled Oxygen Concentration - - Weight 80.7 kg (178 lb) 03/16/2018 1536 EDT Height - - Body Mass Index 29.62 06/24/2016 1121 EDT documented in this encounter Ordered Prescriptions Prescription Sig Dispensed Refills Start Date End Da te albuterol 90 mcg/actuation inhaler Inhale 1-2 Puffs as directed every 6 hours as needed (shortness of breath). Or 15-30 minutes prior to exercise 1 Inhaler 03/16/2018 dextroamphetamine-amphet amine (ADDERALL XR) 20 mg XR capsule Take 1 Cap by mouth daily. Every morning Earliest Fill Date: 05/15/18 Daily Max: 1 Cap 30 Cap 05/15/2018 05/17/2018 dextroamphetamine-amphet amine (ADDERALL XR) 10 mg XR capsule Take 1 Cap by mouth 2 times daily. Noon and 4pm Earliest Fill Date: 05/15/18 Daily Max: 20 mg 60 Cap 05/15/2018 05/17/2018 dextroamphetamine-amphet amine (ADDERALL XR) 20 mg XR capsule Take 1 Cap by mouth daily. Every morning Earliest Fill Date: 04/15/18 Daily Max: 1 Cap 30 Cap 04/15/2018 03/16/2018 dextroamphetamine-amphet amine (ADDERALL XR) 10 mg XR capsule Take 1 Cap by mouth 2 times daily. Noon and 4pm Earliest Fill Date: 04/15/18 Daily Max: 20 mg 60 Cap 04/15/2018 03/16/2018 dextroamphetamine-amphet amine (ADDERALL XR) 20 mg XR capsule Take 1 Cap by mouth daily. Every morning Daily Max: 1 Cap 30 Cap 03/16/2018 03/16/2018 dextroamphetamine-amphet amine (ADDERALL XR) 10 mg XR capsule Take 1 Cap by mouth 2 times daily. Noon and 4pm Daily Max: 20 mg 60 Cap 03/16/2018 03/16/2018 documented in this encounter Progress Notes * Yenifer Rolon, HAUNTED HISTORY TOUR GUIDE - 03/16/2018 1530 EDT Subjective: Patient ID: Jane Blair is an 42 y.o. female. No chief complaint on file. FRANCES Lara presents in follow up for ADD. She feels the mornings are most difficult to focus and become motivated to start her day. She is taking 10mg of adderall XR three times per day. On her own she increased her morning dose to 20mg and feels this has significantly helped her morning time symptoms. She would like to continue the higher dose. She has no side effects. Patient Active Problem List Diagnosis ??? Narcolepsy without cataplexy ??? REM sleep behavior disorder ??? Migraine with aura ??? Episodic mood disorder (HCC-CMS) ??? MDD (major depressive disorder), recurrent episode, moderate (HCC-CMS) ??? GERD without esophagitis ??? Vitamin D deficiency Past Medical History: Diagnosis Date ??? Depression ??? Hearing difficulty ??? Migraines ??? Unspecified cerebral artery occlusion with cerebral infarction No past surgical history on file. Family History Problem Relation Age of Onset ??? Melanoma Mother ??? Breast Cancer Maternal Grandmother ??? Colon Cancer Maternal Grandfather ??? Breast Cancer Maternal Aunt Social Social History Substance Use Topics ??? Smoking status: Never Smoker ??? Smokeless tobacco: Not on file ??? Alcohol use Not on file Current Outpatient Prescriptions on File Prior to Visit Medication Sig Dispense Refill ??? ARIPiprazole (ABILIFY) 10 mg tablet Take 1 Tab by mouth at bedtime. 30 Tab 2 ??? aeqisai-emuqtgdaeqrmh-bmrzedfa (EXCEDRIN MIGRAINE) 250-250-65 mg per tablet Take [...] mouth at bedtime 28 Tab 2 ??? DULoxetine (CYMBALTA) 60 [...] 1 Tab by mouth daily. 90 Tab 0 ??? topiramate (TOPAMAX) 50 mg tablet Take 1 Tab by mouth 2 times daily. 180 Tab 3 No current facility-administered medications on file prior to visit. No Known Allergies Review of Systems Constitutional: Negative. Respiratory: Negative. Cardiovascular: Negative. - See HPI Objective: BP 106/76 Pulse 83 Wt 80.7 kg (178 lb) SpO2 98% BMI 29.62 kg/m2 Physical Exam Constitutional: She appears well-developed and well-nourished. No distress. Cardiovascular: Normal rate, regular rhythm and normal heart sounds. Pulmonary/Chest: Effort normal and breath sounds normal. Assessment: ADD Plan: Diagnoses and all orders for this visit: Attention deficit hyperactivity disorder (ADHD), unspecified ADHD type Other orders - Discontinue: dextroamphetamine-amphetamine (ADDERALL XR) 10 mg XR capsule; Take 1 Cap by mouth 2 times daily. Noon and 4pm Daily Max: 20 mg - Discontinue: dextroamphetamine-amphetamine (ADDERALL XR) 20 mg XR capsule; Take 1 Cap by mouth daily. Every morning Daily Max: 1 Cap - Discontinue: dextroamphetamine-amphetamine (ADDERALL XR) 10 mg XR capsule; Take 1 Cap by mouth 2 times daily. Noon and 4pm Earliest Fill Date: 04/15/18 Daily Max: 20 mg - Discontinue: dextroamphetamine-amphetamine (ADDERALL XR) 20 mg XR capsule; Take 1 Cap by mouth daily. Every morning Earliest Fill Date: 04/15/18 Daily Max: 1 Cap - dextroamphetamine-amphetamine (ADDERALL XR) 10 mg XR capsule; Take 1 Cap by mouth 2 times daily. Noon and 4pm Earliest Fill Date: 05/15/18 Daily Max: 20 mg - dextroamphetamine-amphetamine (ADDERALL XR) 20 mg XR capsule; Take 1 Cap by mouth daily. Every morning Earliest Fill Date: 05/15/18 Daily Max: 1 Cap - albuterol 90 mcg/actuation inhaler; Inhale 1-2 Puffs as directed every 6 hours as needed (shortness of breath). Or 15-30 minutes prior to exercise ADD: Ok to increase morning dose of adderall XR to 20mg daily. Continue late morning and afternoon dose of 10mg BID. Blood pressure and weight are stable No adverse side effects Scripts given for 3 months, she will follow up in May. Yenifer Rolon APRN documented in this encounter Plan of Treatment Upcoming Encounters Date Type Department Care Team (Late st Contact Info) Description 06/08/2024 13:30 EDT Office Visit [facility] [address] [place] [address] Michelle Shannon MD [address] [place] [phone] documented as of this encounter Visit Diagnoses Diagnosis Attention deficit hyperactivity disorder (ADHD), unspecified ADHD type- Primary documented in this encounter Discontinued Medications Medication Sig Discontinue Reason Start Date End Da te dextroamphetamine-amphe tamine (ADDERALL XR) 10 mg XR capsule Take 1 Cap by mouth 3 times daily. Daily Max: 30 mg Reorder 03/15/2018 03/16/2018 dextroamphetamine-amphe tamine (ADDERALL XR) 10 mg XR capsule Take 1 Cap by mouth 2 times daily. Noon and 4pm Daily Max: 20 mg Reorder 03/16/2018 03/16/2018 dextroamphetamine-amphe tamine (ADDERALL XR) 20 mg XR capsule Take 1 Cap by mouth daily. Every morning Daily Max: 1 Cap Reorder 03/16/2018 03/16/2018 dextroamphetamine-amphe tamine (ADDERALL XR) 10 mg XR capsule Take 1 Cap by mouth 2 times daily. Noon and 4pm Earliest Fill Date: 04/15/18 Daily Max: 20 mg Reorder 04/15/2018 03/16/2018 dextroamphetamine-amphe tamine (ADDERALL XR) 20 mg XR capsule Take 1 Cap by mouth daily. Every morning Earliest Fill Date: 04/15/18 Daily Max: 1 Cap Reorder 04/15/2018 03/16/2018 documented as of this encounter Care Teams Cleaning Team Member Relationship Specialty Start Date End Date Michelle Shannno MD [address] [place] [phone] PCP - General 09/08/11 documented as of this encounter
--- OUTSIDE RECORDS SUMMARY | 2024-04-28 15:57 | XMS_ITS | Encounter Summary ---
Author Organization [facility] Address [address] [place] [address] Care Team Providers Care Chlorination Operator Name Role Phone Michelle Shannon MD Primary Care Provider + Encounter Details Date Type Department Care Team (Late st Contact Info) Description 01/16/2018 Results Only [facility] [phone] Marylou Hassan MD [address] [place] [address] [address] [place] [phone] Social History Tobacco Use Types [...] Description 06/08/2024 13:30 EDT Office Visit [facility] [address] [facility] [address] [place] [address] Michelle Shannon MD [address] [place] [phone] documented as of this encounter Procedures Procedure Name Priority Date/Time Associated Diagnosis Comments SURGICAL PATHOLOGY Routine 01/16/2018 13 :40 EDT documented in this encounter Results * SURGICAL PATHOLOGY (01/16/2018 13:40 EDT) Pathology Report: SURGICAL PATHOLOGY REPORT Reports generated via electronic interface contain original data; however they are lacking the format of the original report. Caution should be taken when reading/interpreting unformatted reports. Name: ? EMANUEL BLAIR ? Accession #: ? [id number] ? : ? 1975 (Age: 42) ??F ? Collect Date: ? 01/16/2018 ? Location: ? [facility] ? Receive Date: ? 01/16/2018 ? Provider: MARYLOU HASSAN MD Copy to: AROLDO SHANNON MD ? Final Pathologic Diagnosis: OUTSIDE SLIDES [facility] [id number] (6), PROCEDURE DATE 01/03/2018 BREAST, LEFT, MASS, STEREOTACTIC GUIDED VACUUM ASSISTED LARGE CORE NEEDLE BIOPSY: - Fibrocystic changes including: ??- Nodular sclerotic lobules and early sclerosing adenosis. ??- Columnar cell change. ??- Apocrine metaplasia. ??- Microcysts. - Rare microcalcifications associated with sclerosing adenosis. Comment: Thank you for the opportunity to review this case. The stereotactic guided needle core biopsy demonstrates benign breast tissue with fibrocystic changes. There is some fibrosis and elastotic fibrosis associated with the fibrocystic changes and this could correlate with the radiologic impression of a possible complex sclerosing lesion. However, the overall architecture is not classic for a pathologic radial scar/complex sclerosing lesion. The nodular fibrocystic changes would be expected correlate with a radiologically described mass. There are no patterns of epithelial proliferation that raise concern for a coincident carcinoma. Additional clinical correlation is suggested. Dr. Liriano 01/17/2018 1:14 PM Document reviewed and electronically signed by: HUMBERTO LIRIANO MD Report ??Date: 01/17/2018 13:22 By the signature above, the attending physician certifies that he/she has personally conducted a gross and/or microscopic examination of the described specimens and rendered or confirmed the above diagnosis. Specimen(s) Received: [facility] [id number] (6) Clinical History: Lt breast mass Gross Description: ? Six slides are received for review from [facility], one each labelled [id number] A1, [id number] A2, [id number] A3, [id number] A4, [id number] A5 L1-2, [id number] A5 L3. End of Report [facility] 01/16/2018 13:4 0 EDT 01/16/2018 13:40 EDT Marylou Hassan MD PATHOLOGY ORDERABLES Performing Organization Address City/State/[facility] Co de Phone Number [facility] [address] [place] [address] documented in this encounter Visit Diagnoses Not on filedocumented in this encounter Care Teams Chlorination Operator Relationship Specialty Start Date End Date Michelle Shannon MD [address] [place] [phone] PCP - General 09/08/11 documented as of this encounter
--- OUTSIDE RECORDS SUMMARY | 2024-04-28 15:57 | XMS_ITS | Encounter Summary ---
Author Organization [facility] Address [address] [place] [address] Care Team Providers Care Integration Analyst Name Role Phone Michelle Shannon MD Primary Care Provider + Reason for Visit * Reason Onset Date Comments Medications Refill 07/18/2017 Encounter Details Date Type Department Care Team (Late Contact Info) Description 07/18/2017 Refill [facility] [address] [place], [place] [phone] Michelle Shannon MD [address] [place] [phone] Medications Refill Social History Tobacco [...] Refills Start Date End Da te fluticasone (FLONASE) 50 mcg/actuation nasal spray Instill 2 Sprays into both nostrils daily. 16 g 07/18/2017 12/23/2019 documented in this encounter Plan of Treatment Upcoming Encounters Date Type Department Care Team (Late st Contact Info) Description 06/08/2024 13:30 EDT Office Visit [facility] [address] [place], [place] [phone] Michelle Shannon MD [address] [place] [phone] documented as of this encounter Visit Diagnoses Not on filedocumented in this encounter Discontinued Medications Medication Sig Discontinue Reason Start Date End Da te fluticasone (FLONASE) 50 mcg/actuation nasal spray Instill 2 Sprays into both nostrils daily. Reorder 03/31/2017 07/18/2017 documented as of this encounter Care Teams Integration Analyst Relationship Specialty Start Date End Date Michelle Shannon MD [address] [place] [phone] PCP - General 09/08/11 documented as of this encounter
--- OUTSIDE RECORDS SUMMARY | 2024-04-28 15:57 | XMS_ITS | Encounter Summary ---
Author Organization [facility] Address [address] [place] [address] Care Team Providers Care Boat Operator Name Role Phone Michelle Shannon MD Primary Care Provider + Reason for Visit * Reason Onset Date Comments Medications Refill 10/05/2017 Encounter Details Date Type Department Care Team (Late st Contact Info) Description 10/05/2017 Refill [facility] [address] [place], [place] [phone] Michelle Shannon MD [address] [place] [phone] Medications Refill Social History Tobacco [...] by mouth at bedtime. 30 Tab 2 10/05/2017 11/23/2017 documented in this encounter Plan of Treatment Upcoming Encounters Date Type Department Care Team (Late st Contact Info) Description 06/08/2024 13:30 EDT Office Visit [facility] [address] [place] [address] Michelle Shannon MD [address] [place] [phone] documented as of this encounter Visit Diagnoses Not on filedocumented in this encounter Discontinued Medications Medication Sig Discontinue Reason Start Date End Da te ARIPiprazole (ABILIFY) 10 mg tablet Take 1 Tab by mouth at bedtime. Reorder 08/30/2017 10/05/2017 documented as of this encounter Care Teams Boat Operator Relationship Specialty Start Date End Date Michelle Shannon MD [address] [place] [phone] PCP - General 09/08/11 documented as of this encounter
--- OUTSIDE RECORDS SUMMARY | 2024-04-28 15:57 | XMS_ITS | Encounter Summary ---
Author Organization [facility] Address [address] [place] [address] Care Team Providers Care Music Orchestrator Name Role Phone Michelle Shannon MD Primary Care Provider + Reason for Visit * Reason Onset Date Comments Toe Injury 05/22/2018 Encounter Details Date Type Department Care Team (Late st Contact Info) Description 05/22/2018 Telephone [facility] [address] [place] [address] Michelle Shannon MD [address] [place] [phone] Toe Injury Social History Tobacco Use Types Packs/Day [...] * Telephone Encounter - Mandi Leon - 05/22/2018 0936 EDT Pt c/o Her right great toenail falling off. Pt has been cutting the nail as it becomes looser. Pt is not sure if she injured her toe. The toe is not red, swollen, draining or warm to the touch. This MA informed pt that it is ok to wait to have it assessed at her next visit on 06/06/18. Pt will call us if her toe becomes red, swollen, warm or if there is drainage. Mandi Leon MA documented in this encounter Plan of Treatment Upcoming Encounters Date Type Department Care Team (Late st Contact Info) Description 06/08/2024 13:30 EDT Office Visit [facility] [address] [place], [place] [phone] Michelle Shannon MD [address] [place] [phone] documented as of this encounter Visit Diagnoses Not on filedocumented in this encounter Care Teams Music Orchestrator Relationship Specialty Start Date End Date Michelle Shannon MD [address] [place] [phone] PCP - General 09/08/11 documented as of this encounter
--- OUTSIDE RECORDS SUMMARY | 2024-04-28 15:57 | XMS_ITS | Encounter Summary ---
Author Organization [facility] Address [address] [place] [address] Care Team Providers Care Sawmill Hand Name Role Phone Michelle Shannon MD Primary Care Provider + Encounter Details Date Type Department Care Team (Late st Contact Info) Description 02/09/2018 15:05 EDT - 02/09/2018 23:59 EDT Hospital Encounter [facility] [place] [address] [place] [address] Chela Ta MD [address] [place] [phone] Discharge Disposition: Auto Discharge Social History [...] as of this encounter Discharge Diagnoses Diagnosis Z80.3 Family history of malignant neoplasm of breast-Z80.3[ICD-10-CM] documented in this encounter Medications at Time of Discharge Medication Sig Dispensed Refills Start Date End Date lrbiauz-eklppbqmjytli-k affeine (EXCEDRIN MIGRAINE) 250-250-65 mg per tabletIndications:migra ine Take 1 Tablet by mouth every 6 hours as needed. metroNIDAZOLE (METROGEL) 0.75 % gel Apply topically 2 times daily. ARIPiprazole (ABILIFY) 10 mg tablet Take 1 Tab by mouth at bedtime. 30 Tab 2 11/23/2017 03/24/2018 Azelaic Acid (FINACEA) 15 % gel Apply topically 2 times daily. 02/06/2021 calcium-vitamin D (OS-NOEMY D) 500 mg(1,250mg) -200 unit per tabletIndications:MDD (major depressive disorder), recurrent episode, moderate (HCC-CMS) Take 1 Tab by mouth 2 times daily with breakfast and dinner. 60 Tab 0 08/20/2014 11/19/2019 clonazePAM (KLONOPIN) 1 mg tablet take 1 tablet by mouth at bedtime 28 Tab 2 12/14/2017 02/22/2018 dextroamphetamine-amphe tamine (ADDERALL XR) 10 mg XR capsule Take 1 Cap by mouth 3 times daily. Earliest Fill Date: 02/08/18 Daily Max: 30 mg 84 Cap 02/08/2018 03/15/2018 DULoxetine (CYMBALTA) 60 mg capsule Take 1 Cap by mouth daily. 90 Cap 1 09/16/2017 06/06/2018 fluticasone (FLONASE) 50 mcg/actuation nasal spray Instill 2 Sprays into both nostrils daily. 16 g 07/18/2017 12/23/2019 IBUPROFEN (ADVIL ORAL) Take by mouth daily as needed. 05/19/2023 loratadine (CLARITIN) 10 mg tablet Take 1 Tab by mouth daily. 100 Tab 1 09/16/2017 10/07/2021 melatonin 10 mg capsule Take by mouth. naratriptan (AMERGE) 2.5 mg tabletIndications:migra ine Take as directed. Indications: MIGRAINE 12 Tab 11 03/24/2012 02/06/2021 pantoprazole (PROTONIX) 40 mg tablet Take 1 Tab by mouth daily. 90 Tab 11/18/2017 03/26/2018 topiramate (TOPAMAX) 50 mg tablet Take 1 Tab by mouth 2 times daily. 180 Tab 3 08/30/2017 10/27/2018 documented as of this encounter Discharge Disposition Disposition Code Departure Means Destination Auto Discharge Home documented in this encounter Plan of Treatment Upcoming Encounters Date Type Department Care Team (Late st Contact Info) Description 06/08/2024 13:30 EDT Office Visit [facility] [address] [facility] [address] [place] [address] Michelle Shannon MD [address] [place] [phone] documented as of this encounter Visit Diagnoses Not on filedocumented in this encounter Care Teams Sawmill Hand Relationship Specialty Start Date End Date Michelle Shannon MD [address] [place] [phone] PCP - General 09/08/11 documented as of this encounter
--- OUTSIDE RECORDS SUMMARY | 2024-04-28 15:57 | XMS_ITS | Encounter Summary ---
Author Organization [facility] Address [address] [place] [address] Care Team Providers Care Lime Hide Inspector Name Role Phone Michelle Shannon MD Primary Care Provider + Reason for Visit * Reason Onset Date Comments Other 05/22/2018 med question Encounter Details Date Type Department Care Team (Late st Contact Info) Description 05/22/2018 Telephone [facility] [address] [place] [address] Michelle Shannon MD [address] [place] [phone] Other (med question) Social History Tobacco Use Types Packs/Day Years [...] * Telephone Encounter - Ritika Morris - 05/22/2018 0929 EDT Received call from Jane , she stated I have an appointment on 06/06 for a physical ,but I have an issue . I think I have an infection in my big toe and my toenail is falling off, its dark , brittle and looks . documented in this encounter Plan of Treatment Upcoming Encounters Date Type Department Care Team (Late st Contact Info) Description 06/08/2024 13:30 EDT Office Visit [facility] [address] [place], [place] [phone] Michelle Shannon MD [address] [place] [phone] documented as of this encounter Visit Diagnoses Not on filedocumented in this encounter Care Teams Lime Hide Inspector Relationship Specialty Start Date End Date Michelle Shannon MD [address] [place] [phone] PCP - General 09/08/11 documented as of this encounter
--- OUTSIDE RECORDS SUMMARY | 2024-04-28 15:57 | XMS_ITS | Encounter Summary ---
Author Organization [facility] Address [address] [place] [address] Care Team Providers Care Web Support Engineer Name Role Phone Michelle Shannon MD Primary Care Provider + Reason for Referral * PT/OT/ST (Routine) - New Request Specialty Diagnoses / Procedures [facility] Referred To Contact Diagnoses Shoulder impingement, right Michelle Shannon MD [address] [place] [phone] Referral ID Status Reason Start Date Expiration Date Visits Requested Visits Authorized [id number] New Request Specialty Services Required 06/06/2018 1 1 Question Answer Reason for Request: right shoulder impingement Reason for Visit * Reason Comments Annual Exam Encounter Details Date Type Department Care Team (Late st Contact Info) Description 06/06/2018 8:30 EDT Office Visit [facility] [address] [place] [phone] Michelle Shannon MD [address] [place] [phone] Shoulder impingement, right (Primary Dx) Social History Tobacco Use Types [...] Sign Reading Time Taken Comments Blood Pressure 108/58 06/06/2018 08 EDT Pulse 87 06/06/2018815 EDT Temperature 37.1 ??C (98.7 ??F) 06/06/2018 08 EDT Respiratory Rate - - Oxygen Saturation 98% 06/06/2018815 EDT Inhaled Oxygen Concentration - - Weight 80.7 kg (178 lb) 06/06/2018 08 EDT Height - - Body Mass Index 29.62 06/24/2016 1121 EDT documented in this encounter Patient Instructions * Patient Instructions* Michelle Shannon MD - 06/06/2018 8:30 EDT Health Maintenance- the patient received health guidance in the following areas Mammogram -recommended yearly from age 40-75, and possibly beyond 75 based on individual level of risk and personal decision making. 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 Getting an MRI in July DEXA at menopause Pap recommended every 3 years until age 65. Last done through Dr. Woo, last done in March 2018 with implanon Colonoscopy - Due at 49 and every 10 years until age 74 Lipid screening when fasting Tetanus every 10 years until age 65- last done at [facility] due to head laceration within thelast 5 years Flu shot recommended yearly Shingles vaccine at 49 Encourage Vitamin D 1000 IU a day and weight bearing exercise Exercise 150 minutes a week Body mass index today is 29, a normal BMI is 19-24 Alcohol intake should be avoided Eye exam recommended every 2 years Wear seatbelts regulalry Weight gain Discussed starting to use the gym down the [address] 20 minutes twice a week Plans to start a low carb diet documented in this encounter Ordered Prescriptions Prescription Sig Dispensed Refills Start Date End Da te DULoxetine (CYMBALTA) 60 mg capsule Take 1 Cap by mouth daily. 90 Cap 1 06/06/2018 10/11/2018 documented in this encounter Progress Notes * Michelle Shannon MD - 06/06/2018 0845 EDT Patient ID: Jane Blair is a/an 42 y.o. female. PCP: Michelle Shannon MD Routine Health Maintenance Exam Subjective: Chief Complaint Patient presents with ??? Annual Exam Work- pt is taking classes. Issues with student loans and she is looking into loan forgiveness needs a letter confirming SSDI permanent disability (migraines, depression, REM sleep disorder) Exercise- none Diet- no restricted [employer] health- using Implanon for contraception Seatbelts - sometimes Fire alarms/ CO detectors upto date - yes Firearms at home no Support system- mom Sleep/ mental health- depression PHQ score positive- treated for depression Weight is up over the last few months. She has been more depressed lately. In bed more often. Plansto start a Keto-diet with her mom who is diabetic. She seems to have a good handle on what a low carb diet should consist of. Right shoulder hurts. Thinks is due to the way she has been sleeping on it. No injury. Feels a grinding in the shoulder. Trouble reaching back, although this is similar to left side. She began gradually and have been going on for several weeks. She is seeing Rosio Simon at [facility]. There are programs to help with paying loans. Going throught DBT. She feels sadness and poor motivation, but no SI. Right toenail cracked off 1 month ago and is still not growing back She has a lot of exercise induced shortness of breath. She has been using an inhaler since seeing the ELECTRICAL PANEL BUILDER which helps. She uses it a couple times a week. She has never been formally tested for asthma.Wonders if her sx are related to her weight gain. Migraines are occurring if she misses her dose of Topamax. Otherwise only gets a mild headache oncea week. Re: sleep disorder she feel the Adderall 20 mg is helping better in the AM to get going. 10 bid after that feel like it is enough. Klonopin and Melatonin help her fall asleep. She denies any episodesof abnormal sleep movements causing her to fall out of bed. Active Problem List Patient Active Problem List Diagnosis ??? Narcolepsy without cataplexy ??? REM sleep behavior disorder ??? Migraine with aura ??? Episodic mood disorder (HCC-CMS) ??? MDD (major depressive disorder), recurrent episode, moderate (HCC-CMS) ??? GERD without esophagitis ??? Vitamin D deficiency ??? Allergic rhinitis PMH PSH Past Medical History: Diagnosis Date ??? Hearing difficulty ??? Unspecified cerebral artery occlusion with cerebral infarction ??? Vasovagal syncope Past Surgical History: Procedure Laterality Date ??? BREAST BIOPSY Social History Family history Social History Substance Use Topics ??? Smoking status: Never Smoker ??? Smokeless tobacco: Never Used ??? Alcohol use No Family History Problem Relation Age of Onset ??? Melanoma Mother ??? *Other(comment) Mother Sjogrens and ? RA, SAMANIEGO ??? Diabetes Mother ??? Obesity Mother ??? Hypertension Mother ??? Elevated Lipids Mother ??? Hemochromatosis Mother ??? Breast Cancer Maternal Grandmother ??? Colon Cancer Maternal Grandfather ??? Breast Cancer Maternal Aunt ??? Unknown Father ??? Migraines Paternal Grandmother ??? Alcohol Abuse Brother fatty liver and GERD Medications Current Outpatient Prescriptions: albuterol 90 mcg/actuation inhaler ARIPiprazole (ABILIFY) 10 mg tablet nweysox-njqzflynhmzhv-hicrwdcs (EXCEDRIN MIGRAINE) 250-250-65 mg per tablet Azelaic Acid (FINACEA) 15 % gel calcium-vitamin D (OS-NOEMY D) 500 mg(1,250mg) -200 unit per tablet clonazePAM (KLONOPIN) 1 mg tablet dextroamphetamine-amphetamine (ADDERALL XR) 10 mg XR capsule dextroamphetamine-amphetamine (ADDERALL XR) 20 mg XR capsule DULoxetine (CYMBALTA) 60 mg capsule fluticasone (FLONASE) 50 mcg/actuation nasal spray IBUPROFEN (ADVIL ORAL) loratadine (CLARITIN) 10 mg tablet melatonin 10 mg capsule metroNIDAZOLE (METROGEL) 0.75 % gel naratriptan (AMERGE) 2.5 mg tablet pantoprazole (PROTONIX) 40 mg tablet topiramate (TOPAMAX) 50 mg tablet No current facility-administered medications for this visit. Allergies No Known Allergies Review of Systems Constitutional: Positive for diaphoresis (at night ) and malaise/fatigue. Negative for weight loss. HENT: Negative for congestion, hearing loss and sore throat. Eyes: Negative for blurred vision. Respiratory: Positive for shortness of breath. Negative for cough and wheezing. Cardiovascular: Negative for chest pain, palpitations and leg swelling. Gastrointestinal: Negative for abdominal pain, constipation, diarrhea, heartburn (unless misses a protinix dose) and nausea. Genitourinary: Positive for urgency. Negative for dysuria and frequency. No menstrual cycles with Implanon Musculoskeletal: Positive for myalgias (leg pain). Skin: Negative for itching and rash. Neurological: Positive for tingling (hands) and headaches. Negative for dizziness. Endo/Heme/Allergies: Negative for polydipsia. Psychiatric/Behavioral: Negative for depression and suicidal ideas. The patient is nervous/anxious and has insomnia. OBJECTIVE: Vitals: BP 108/58 Pulse 87 Temp 37.1 ??C (98.7 ??F) (Tympanic) Wt 80.7 kg (178 lb) SpO2 98% BMI 29.62 kg/m2 Physical Exam Constitutional: She appears well-developed and well-nourished. She is cooperative. HENT: Ears: Hearing, tympanic membranes and ear canals normal. Nose: No rhinorrhea or nasal deformity. Mouth/Throat: Oropharynx is clear and moist. No oral lesions. Normal dentition. Tongue is normal. Lips are normal Eyes: Conjunctivae, EOM and lids are normal. Pupils are equal, round, and reactive to light. Neck: Carotid bruit is not present. No thyroid mass and no thyromegaly present. Cardiovascular: Normal rate, regular rhythm, normal heart sounds and normal pedal pulses. No murmurheard. No edema Pulmonary/Chest: Effort normal and breath sounds normal. No respiratory distress. Breasts: Right breast exhibits no mass, no skin change and no tenderness. Left breast exhibits no mass, no skin change and no tenderness. Breasts are symmetrical. Abdominal: Soft. Normal aorta and bowel sounds are normal. There is no tenderness. There is no rigidity and no guarding. No hepatosplenomegaly. No masses. Musculoskeletal: Spine with good alignment. Normal gait Right shoulder pain and slightly limited with internal rotation. Tender over bursa. No grinding appreciated on exam Lymphadenopathy: She has no cervical or supraclavicular adenopathy. She has no axillary adenopathy. Neurological: She is alert. She has normal reflexes. Skin: No ecchymosis, no lesion and no rash noted. Right great toenail is cracked, maybe slightly thickened Psychiatric: She appears anxious with normal affect. Her speech is normal and behavior is normal. Cognition and memory are normal. Judgement intact. Encounter Diagnosis Name Primary? Shoulder impingement, right Yes Health Maintenance- the patient received health guidance in the following areas Mammogram -recommended yearly from age 40-75, and possibly beyond 75 based on individual level of risk and personal decision making. 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 Getting an MRI in July DEXA at menopause Pap recommended every 3 years until age 64. Last done through Dr. Woo, last done in March 2018 with implanon Colonoscopy - Due at 49 and every 10 years until age 74 Lipid screening when fasting Tetanus every 10 years until age 65- last done at [facility] due to head laceration within thelast 5 years Flu shot recommended yearly Shingles vaccine at 49 Encourage Vitamin D 1000 IU a day and weight bearing exercise Exercise 150 minutes a week Body mass index today is 29, a normal BMI is 19-24 Alcohol intake should be avoided Eye exam recommended every 2 years Wear seatbelts regulalry Weight gain Goal is to use the gym down the [address] 20 minutes twice a week Plans to start a low carb diet. Discussed calorie limits Shortness of breath with activity- may be deconditioning or asthma She is getting benefit from Pro-Air Consider formal testing for asthma if weight loss does not help sx Narcolepsy and REM sleep disorder Continue Adderall during the day and Clonazepam at night Taking Adderall 20mg in the AM and the 10mg bid noon and afternoon Major depressive disorder Stable on duloxetine and Abilify Encouraged her to increase her social contacts through school Continue Counseling [facility] Right shoulder pain- possibly bursitis or related to sleep position, but some sx suggest arthritis Refer to PT Consider Xray shoulder Vit D deficiency Encouraged better compliance with supplement Leg and hand cramps-Worse is she misses Klonopin Encouraged a Noemy-Mag supplement once again Lytes and Mg was normal in September hemachromatosis- consider Ferritin level and LFTs with next labs Right great toenail- Possible onychomycosis Monitor for re-growth of nail Topical tx may be an option Goals None Michelle Shannon MD documented in this encounter Plan of Treatment Upcoming Encounters Date Type Department Care Team (Late st Contact Info) Description 06/08/2024 13:30 EDT Office Visit [facility] [address] [place], [place] [phone] Michelle Shannon MD [address] [place] [phone] Scheduled Referrals Name Type Priority Associated Diagnoses Orde r Schedule AMB CONS/FOLLOW UP PHYSICAL THERAPY Outpatient Referral Routine Shoulder impingement, right Ordered: 06/06/2018 documented as of this encounter Visit Diagnoses Diagnosis Shoulder impingement, right- Primary documented in this encounter Discontinued Medications Medication Sig Discontinue Reason Start Date End Da te DULoxetine (CYMBALTA) 60 mg capsule Take 1 Cap by mouth daily. Reorder 09/16/2017 06/06/2018 documented as of this encounter Care Teams Web Support Engineer Relationship Specialty Start Date End Date Michelle Shannon MD [address] [place] [phone] PCP - General 09/08/11 documented as of this encounter
--- OUTSIDE RECORDS SUMMARY | 2024-04-28 15:57 | XMS_ITS | Encounter Summary ---
Author Organization [facility] Address [address] [place] [address] Care Team Providers Care Concrete Gun Operator Name Role Phone Michelle Shannon MD Primary Care Provider + Reason for Visit * Reason Onset Date Comments Medications Refill 03/24/2018 Encounter Details Date Type Department Care Team (Late st Contact Info) Description 03/24/2018 Refill [facility] [address] [place] [phone] Michelle Shannon MD [address] [place] [phone] Medications Refill Social History Tobacco Use [...] * Telephone Encounter - Chanel Mac - 03/24/2018 1254 EDT Pt would like refill Abilify 10mg PO QHS.Chanel Mac documented in this encounter Plan of Treatment Upcoming Encounters Date Type Department Care Team (Late st Contact Info) Description 06/08/2024 13:30 EDT Office Visit [facility] [address] [place], [place] [phone] Michelle Shannon MD [address] [place] [phone] documented as of this encounter Visit Diagnoses Not on filedocumented in this encounter Care Teams Concrete Gun Operator Relationship Specialty Start Date End Date Michelle Shannon MD [address] [place] [phone] PCP - General 09/08/11 documented as of this encounter
--- OUTSIDE RECORDS SUMMARY | 2024-04-28 15:57 | XMS_ITS | Encounter Summary ---
Author Organization [facility] Address [address] [place] [address] Care Team Providers Care Research Consultant Name Role Phone Michelle Shannon MD Primary Care Provider + Encounter Details Date Type Department Care Team (Late st Contact Info) Description 01/16/2018 7:01 EDT - 01/16/2018 7:03 EDT Hospital Encounter [address] [phone] Gordon Richey MD [address] [place] [phone] Discharge Disposition: Home or Self Care Social [...] as of this encounter Discharge Diagnoses Diagnosis N63.0 Unspecified lump in unspecified breast-N63.0[ICD-10-CM] documented in this encounter Medications at Time of Discharge Medication Sig Dispensed Refills Start Date End Date lyesjno-tlfihmdlbfljc-q affeine (EXCEDRIN MIGRAINE) 250-250-65 mg per tabletIndications:migra [...] Info) Description 06/08/2024 13:30 EDT Office Visit [facility] [address] [place] [address] Michelle Shannon MD [address] [place] [phone] documented as of this encounter Visit Diagnoses Not on filedocumented in this encounter Care Teams Research Consultant Relationship Specialty Start Date End Date Michelle Shannon MD [address] [place] [phone] PCP - General 09/08/11 documented as of this encounter
--- OUTSIDE RECORDS SUMMARY | 2024-04-28 15:57 | XMS_ITS | Encounter Summary ---
Author Organization [facility] Address [address] [place] [address] Care Team Providers Care Drilling Engineering Manager Name Role Phone Michelle Shannon MD Primary Care Provider + Encounter Details Date Type Department Care Team (Late st Contact Info) Description 01/12/2018 Results Only Imaging [facility] [phone] Chela Ta MD [address] [place] [address] [address] [place] [phone] Social History Tobacco Use Types [...] Info) Description 06/08/2024 13:30 EDT Office Visit [facility] [address] [facility] [address] [place] [address] Michelle Shannon MD [address] [place] [phone] Pending Results Name Type Priority Associated Diagnoses Date /Time OUTSIDE IMAGES - MAMMO BREAST Imaging 01/03/2018 10:49 EDT OUTSIDE IMAGES - MAMMO BREAST Imaging 01/03/2018 10:49 EDT OUTSIDE IMAGES - US BREAST Imaging 03/22/2017 10:49 EDT OUTSIDE IMAGES - MAMMO BREAST Imaging 03/22/2017 10:49 EDT OUTSIDE IMAGES - US BREAST Imaging 08/26/2016 10:49 EST OUTSIDE IMAGES - MAMMO BREAST Imaging 08/26/2016 10:49 EST OUTSIDE IMAGES - MAMMO BREAST Imaging 08/09/2016 10:49 EST documented as of this encounter Visit Diagnoses Not on filedocumented in this encounter Care Teams Drilling Engineering Manager Relationship Specialty Start Date End Date Michelle Shannon MD [address] [place] [phone] PCP - General 09/08/11 documented as of this encounter
--- OUTSIDE RECORDS SUMMARY | 2024-04-28 15:57 | XMS_ITS | Encounter Summary ---
Author Organization [facility] Address [address] [place] [address] Care Team Providers Care Candle Molder Name Role Phone Michelle Shannon MD Primary Care Provider + Reason for Visit * Reason Onset Date Comments Medications Refill 06/13/2017 Encounter Details Date Type Department Care Team (Late st Contact Info) Description 06/13/2017 Refill Romeo Elliott MD, [address] [place], [place] [phone] Michelle Shannon MD [address] [place] [phone] Medications Refill Social History Tobacco [...] Info) Description 06/08/2024 13:30 EDT Office Visit [facility] [address] [facility] [address] [place], [place] [phone] Michelle Shannon MD [address] [place] [phone] documented as of this encounter Visit Diagnoses Not on filedocumented in this encounter Care Teams Candle Molder Relationship Specialty Start Date End Date Michelle Shannon MD [address] [place] [phone] PCP - General 09/08/11 documented as of this encounter
--- OUTSIDE RECORDS SUMMARY | 2024-04-28 15:57 | XMS_ITS | Encounter Summary ---
Author Organization [facility] Address [address] [place] [address] Care Team Providers Care Financial Reporting Consultant Name Role Phone Michelle Shannon MD Primary Care Provider + Reason for Visit * Reason Onset Date Comments Medications Refill 03/27/2018 Encounter Details Date Type Department Care Team (Late st Contact Info) Description 03/27/2018 Refill Benito Crowley MD, [facility] [address] [place], [place] [phone] Taryn Salazar, RN [address] [place] [phone] Medications Refill Social History Tobacco [...] Info) Description 06/08/2024 13:30 EDT Office Visit [facility] [address] [place], [place] [phone] Michelle Shannon MD [address] [place] [phone] documented as of this encounter Visit Diagnoses Not on filedocumented in this encounter Care Teams Financial Reporting Consultant Relationship Specialty Start Date End Date Michelle Shannon MD [address] [place] [phone] PCP - General 09/08/11 documented as of this encounter
--- OUTSIDE RECORDS SUMMARY | 2024-04-28 15:57 | XMS_ITS | Encounter Summary ---
Author Organization [facility] Address [address] [place] [address] Care Team Providers Care Sea Shell Gatherer Name Role Phone Michelle Shannon MD Primary Care Provider + Reason for Visit * Reason Comments Medication Management Encounter Details Date Type Department Care Team (Late st Contact Info) Description 12/14/2017 10:30 EDT Office Visit [facility] [address] [place] [phone] Michelle Shannon MD [address] [place] [phone] REM sleep behavior disorder (Primary Dx); Episodic mood disorder (CMS-HCC) (HCC-CMS) Social History Tobacco Use Types Packs/Day Years [...] Sign Reading Time Taken Comments Blood Pressure 106/72 12/14/2017 1039 EDT Pulse 91 12/14/2017 1039 EDT Temperature 37.1 ??C (98.8 ??F) 12/14/2017 1039 EDT Respiratory Rate - - Oxygen Saturation 98% 12/14/2017 1039 EDT Inhaled Oxygen Concentration - - Weight 78.5 kg (173 lb) 12/14/2017 1039 EDT Height - - Body Mass Index 28.79 06/24/2016 1121 EDT documented in this encounter Ordered Prescriptions Prescription Sig Dispensed Refills Start Date End Da te dextroamphetamine-ampheta mine (ADDERALL XR) 10 mg XR capsule Take 1 Cap by mouth 3 times daily. Earliest Fill Date: 02/08/18 Daily Max: 30 mg 84 Cap 02/08/2018 03/15/2018 dextroamphetamine-ampheta mine (ADDERALL XR) 10 mg XR capsule Take 1 Cap by mouth 3 times daily. Earliest Fill Date: 01/11/18 Daily Max: 30 mg 84 Cap 01/11/2018 12/14/2017 dextroamphetamine-ampheta mine (ADDERALL XR) 10 mg XR capsule Take 1 Cap by mouth 3 times daily. Daily Max: 30 mg 84 Cap 12/14/2017 12/14/2017 clonazePAM (KLONOPIN) 1 mg tablet take 1 tablet by mouth at bedtime 28 Tab 2 12/14/2017 02/22/2018 documented in this encounter Progress Notes * Michelle Shannon MD - 12/14/2017 1030 EDT Subjective: Patient ID: Jane Blair is an 42 y.o. female. Chief Complaint Patient presents with ??? Medication Management HPI Pt reports cramping in right leg at night. Trying relaxation techniques, but sx interfere with sleeping every night. She admits she ran out of her Klonopin Pt will be be meeting with a new therapist next week through [facility]. Mood has been labile. If she does not take her adderall she feels much less motivated,wtih trouble being active. Misses a dose if she sleeps through her dose. This occurs about once a week. Pt is still taking classes online, but she does better academically and socially when she takes in classroom course. Sleeping difficulties related to narcolepsy and hypersomnia are stable She is complaint withAbilify and Duloxetine. She has been doing better with Vitamin D compliance. Pt has some increased headaches recently, but she admits she hasn't been taking magnesium as often and ran out of Klonopin a few days ago. She has been having trouble sleeping. Patient Active Problem List Diagnosis ??? Narcolepsy without cataplexy ??? REM sleep behavior disorder ??? Migraine with aura ??? Episodic mood disorder (CMS-HCC) ??? MDD (major depressive disorder), recurrent episode, moderate (CMS-HCC) ??? GERD without esophagitis ??? Vitamin D [...] mouth at bedtime. 30 Tab 2 ??? yjjiacz-gdfyirxtpqhvj-ucaloeyd (EXCEDRIN MIGRAINE) 250-250-65 mg per tablet Take 1 Tab by mouthevery 6 hours as needed. Indications: MIGRAINE ??? Azelaic Acid (FINACEA) 15 % gel Apply topically 2 times daily. ??? calcium-vitamin D (OS-NOEMY D) 500 mg(1,250mg) -200 unit per tablet Take 1 Tab by mouth 2 times daily with breakfast and dinner. 60 Tab 0 ??? DULoxetine (CYMBALTA) 60 mg [...] Constitutional: Positive for malaise/fatigue. Negative for chills, fever. Weight has increased [id number] over 1 year HENT: Positive for congestion and ear pain. Negative for sinus pain and sore throat. Eyes: Negative for pain. Respiratory: Negative for cough, shortness of breath and wheezing. Cardiovascular: Negative for chest pain and palpitations. Abd: No constipation : no menstrual irregularity Psychiatric/Behavioral: Positive for depression. Negative for suicidal ideas. The patient is nervous/anxious and has insomnia. - See HPI Objective: BP 106/72 Pulse 91 Temp 37.1 ??C (98.8 ??F) (Tympanic) Wt 78.5 kg (173 lb) SpO2 98% BMI 28.79 kg/m2 Physical Exam Constitutional: She appears well-developed and well-nourished. No distress. Neck- thyroid feels normal Cardiovascular: Normal rate, regular rhythm, normal heart sounds and intact distal pulses. No murmur heard. Skin: Evidence of skin picking. Face with mild rosacea. Mid-upper back with 3mm dark macule. Well-circumscribed without other worrisome features. Psychiatric: Her mood appears anxious. Her speech is rapid and/or pressured. She is not agitated, not hyperactive and not withdrawn. She does not exhibit a depressed mood. Pt is mildly forgetful. She is inattentive. Assessment: Plan: Jane was seen today for medication management. Diagnoses and all orders for this visit: REM sleep behavior disorder Episodic mood disorder (CMS-HCC) Other orders - clonazePAM (KLONOPIN) 1 mg tablet; take 1 tablet by mouth at bedtime - Discontinue: dextroamphetamine-amphetamine (ADDERALL XR) 10 mg XR capsule; Take 1 Cap by mouth 3 times daily. Daily Max: 30 mg - Discontinue: dextroamphetamine-amphetamine (ADDERALL XR) 10 mg XR capsule; Take 1 Cap by mouth 3 times daily. Earliest Fill Date: 01/11/18 Daily Max: 30 mg - dextroamphetamine-amphetamine (ADDERALL XR) 10 mg XR capsule; Take 1 Cap by mouth 3 times daily. Earliest Fill Date: 02/08/18 Daily Max: 30 mg Narcolepsy and REM sleep disorder Continue Adderall during the day and Clonazepam at night Major depressive disorder Stable on duloxetine and Abilify Encouraged her to increase her social contacts through school Vit D deficiency Encouraged better compliance with supplement Leg and hand cramps- might be worse with running out of Klonopin recently Consider a Noemy-Mag supplement Also discussed tonic water, but pt does not like the taste Lytes and Mg was normal in September Goals None Michelle Shannon MD documented in this encounter Plan of Treatment Upcoming Encounters Date Type Department Care Team (Late st Contact Info) Description 06/08/2024 13:30 EDT Office Visit [facility] [address] [place] [address] Michelle Shannon MD [address] [place] [phone] documented as of this encounter Visit Diagnoses Diagnosis REM sleep behavior disorder- Primary Episodic mood disorder (HCC-CMS) Unspecified episodic mood disorder documented in this encounter Discontinued Medications Medication Sig Discontinue Reason Start Date End Da te clonazePAM (KLONOPIN) 1 mg tablet take 1 tablet by mouth at bedtime Reorder 09/16/2017 12/14/2017 dextroamphetamine-amphe tamine (ADDERALL XR) 10 mg XR capsule Take 1 Cap by mouth 3 times daily. Earliest Fill Date: 11/18/17 Daily Max: 30 mg Reorder 11/18/2017 12/14/2017 dextroamphetamine-amphe tamine (ADDERALL XR) 10 mg XR capsule Take 1 Cap by mouth 3 times daily. Daily Max: 30 mg Reorder 12/14/2017 12/14/2017 dextroamphetamine-amphe tamine (ADDERALL XR) 10 mg XR capsule Take 1 Cap by mouth 3 times daily. Earliest Fill Date: 01/11/18 Daily Max: 30 mg Reorder 01/11/2018 12/14/2017 documented as of this encounter Care Teams Sea Shell Gatherer Relationship Specialty Start Date End Date Michelle Shannon MD [address] [place] [phone] PCP - General 09/08/11 documented as of this encounter
--- OUTSIDE RECORDS SUMMARY | 2024-04-28 15:57 | XMS_ITS | Encounter Summary ---
Author Organization [facility] Address [address] [place] [address] Care Team Providers Care Brick Baker Name Role Phone Michelle Shannon MD Primary Care Provider + Reason for Referral * Radiology Services (Routine) - New Request Specialty Diagnoses / Procedures Referred By Controlo t Referred To Contact Diagnoses Breast mass Procedures MA BREAST OUTSIDE CONSULTATION Chela Ta MD [address] [place] [phone] Referral ID Status Reason Start Date Expiration Date V isits Requested Visits Authorized [id number] New Request 01/18/2018 1 1 Encounter Details Date Type Department Care Team (Late st Contact Info) Description 01/18/2018 Orders Only Non [facility] [address] [place] [address], [address] [place] [address] Chela Ta MD [address] [place] [phone] Breast mass (Primary Dx) Social History Tobacco Use Types [...] Info) Description 06/08/2024 13:30 EDT Office Visit [facility] [address] [place] [address] Michelle Shannon MD [address] [place] [phone] documented as of this encounter Procedures Procedure Name Priority Date/Time Associated Diagnosis Comments MA BREAST OUTSIDE CONSULTATION Routine 01/19/2018 8:29 EDT Breast mass documented in this encounter Results * MA BREAST OUTSIDE CONSULTATION (01/19/2018 8:29 EDT) Anatomical Region Laterality Modality Other 01/19/2018 8:29 EDT 01/20/2018 9:55 EDT Narrative 01/20/2018 9:55 EDT MA BREAST OUTSIDE CONSULTATION01/19/2018 8:29 AM SIGNS & SYMPTOMS / COMMENTS: N63.0-Unspecified lump in unspecified [id number]; s/p left breast stereo biopsy at [facility] 01/03/18. [facility] path suggested a complex sclerosing lesion. [facility] path review is not consistent with a complex sclerosing lesion. please review for imaging and path concordence. EXAMINATIONS REVIEWED: Synthetic 2-D/3-D mammograms of both breasts from 08/09/2016, and 10/27/2017. Magnification mammogram of the left breast from 08/26/2016, 03/22/2017. Ultrasound of the upper left breast from 08/26/2016 and 03/22/2017. Images from stereotactic biopsy from 01/03/18 FINDINGS: RIGHT BREAST: Mammography: Screening mammogram from 10/27/17: Standard synthetic 2-D/3-D CC and MLO views of the right breast obtained at an outside institution demonstrate scattered fibroglandular densities. No suspicious calcifications or masses are seen. LEFT BREAST: Screening mammogram from 10/27/17: Standard synthetic 2-D/3-D CC and MLO views of the left breast obtained on outside institution demonstrate scattered fibroglandular densities. There is a group of well-circumscribed round masses located in the lower inner quadrant of the breast which appear stable since 2016. On the MLO view only, there is an area of architectural distortion seen posteriorly in the upper aspect of the breast with associated punctate calcifications. This area appears stable when compared with 2016. This area was shown on XCCL view to be very lateral and posterior on diagnostic imaging from 01/03/18 which was performed prior to stereotactic biopsy of the area. It had never been imaged previously on the cc view. The stereotactic biopsy was performed on 01/03/18. Although most of the stereotactic biopsy images stated were labeled right, it was actually on the left, since the postbiopsy images showed the clip to be in the appropriate position in the area of architectural distortion on the MLO and X CCL views on the left. Also of note, ultrasound was performed on 11/08/17 and showed a group of benign-appearing cysts at 9 o'clock 4 cm from the nipple which likely corresponds with the area seen in the lower inner quadrant of the breast which was stable mammographically. It was also stable on ultrasound when compared with prior ultrasounds. The area of architectural distortion was not seen with certainty on the 11/08/17 ultrasound. There was a small cyst at 2 o'clock 10 cm from the nipple measuring 3 mm x 3 mm x 2 mm which had a benign appearance. There was another benign-appearing cyst seen at 2 o'clock 4 cm from the nipple measuring 5 x 3 x 4 mm. The pathology from the stereotactic biopsy of the area of architectural distortion in the upper outer aspect of the breast was initially read at [facility] as consistent with complex sclerosing lesion. The pathology was read evaluated at [facility] and the findings were felt to be fibrocystic changes including nodular sclerotic lobules and early sclerosing adenosis and rare microcalcifications associated with sclerosing adenosis. Specifically, complex sclerosing lesion was not identified. Further, it was stated in the report from [facility] pathology that There is some fibrosis and elastotic fibrosis associated with the fibrocystic changes and this could correlate with the radiologic impression of a possible complex sclerosing lesion. On review of the imaging by Dr. Lizabeth Lake, the mammographic area is felt to be benign and concordant with the diagnosis of fibrocystic change with nodular sclerotic lobules. The mammographic appearance could also be consistent with the original diagnosis of complex sclerosing lesion. It has been stable since 2016. IMPRESSION: Right breast: BI-RADS Category Assessment 1: Negative. Left breast: BI-RADS Category Assessment 2: Benign Findings. 1. Area of architectural distortion which has been stable since 2016 is consistent with the [facility] pathology department reading of benign fibrocystic change with nodular sclerotic lobules and early sclerosing adenosis. It is benign and concordant. 2. There are benign fibrocystic changes noted in other areas of the breast. OVERALL IMPRESSION: BI-RADS Category Assessment 2: Benign Findings. Recommendation: On review Dr. Ta's office notes from 01/12/18, the patient meets criteria for MRI screening. Breast MR screening in addition to screening annual mammography is therefore recommended. Special attention should be paid to the area of architectural distortion in the upper outer aspect of the left breast when the patient has her screening breast MR. Dr. Chela Ta will discuss the results of this interpretation and recommendations with the patient. I have personally reviewed the images and the above interpretation and agree with the findings. Procedure Note Lizabeth Eason MD - 01/20/2018 PA BREAST OUTSIDE CONSULTATION01/19/2018 8:29 AM SIGNS & SYMPTOMS / COMMENTS: N63.0-Unspecified lump in unspecified [id number]; s/p left breast stereo biopsy at [facility] 01/03/18. [facility] path suggested a complex sclerosing lesion. [facility] path review is not consistent with a complex sclerosing lesion. please review for imaging and path concordence. EXAMINATIONS REVIEWED: Synthetic 2-D/3-D mammograms of both breasts from 08/09/2016, and 10/27/2017. Magnification mammogram of the left breast from 08/26/2016, 03/22/2017. Ultrasound of the upper left breast from 08/26/2016 and 03/22/2017. Images from stereotactic biopsy from 01/03/18 FINDINGS: RIGHT BREAST: Mammography: Screening mammogram from 10/27/17: Standard synthetic 2-D/3-D CC and MLO views of the right breast obtained at an outside institution demonstrate scattered fibroglandular densities. No suspicious calcifications or masses are seen. LEFT BREAST: Screening mammogram from 10/27/17: Standard synthetic 2-D/3-D CC and MLO views of the left breast obtained on outside institution demonstrate scattered fibroglandular densities. There is a group of well-circumscribed round masses located in the lower inner quadrant of the breast which appear stable since 2016. On the MLO view only, there is an area of architectural distortion seen posteriorly in the upper aspect of the breast with associated punctate calcifications. This area appears stable when compared with 2016. This area was shown on XCCL view to be very lateral and posterior on diagnostic imaging from 01/03/18 which was performed prior to stereotactic biopsy of the area. It had never been imaged previously on the cc view. The stereotactic biopsy was performed on 01/03/18. Although most of the stereotactic biopsy images stated were labeled right, it was actually on the left, since the postbiopsy images showed the clip to be in the appropriate position in the area of architectural distortion on the MLO and X CCL views on the left. Also of note, ultrasound was performed on 11/08/17 and showed a group of benign-appearing cysts at 9 o'clock 4 cm from the nipple which likely corresponds with the area seen in the lower inner quadrant of the breast which was stable mammographically. It was also stable on ultrasound when compared with prior ultrasounds. The area of architectural distortion was not seen with certainty on the 11/08/17 ultrasound. There was a small cyst at 2 o'clock 10 cm from the nipple measuring 3 mm x 3 mm x 2 mm which had a benign appearance. There was another benign-appearing cyst seen at 2 o'clock 4 cm from the nipple measuring 5 x 3 x 4 mm. The pathology from the stereotactic biopsy of the area of architectural distortion in the upper outer aspect of the breast was initially read at [facility] as consistent with complex sclerosing lesion. The pathology was read evaluated at [facility] and the findings were felt to be fibrocystic changes including nodular sclerotic lobules and early sclerosing adenosis and rare microcalcifications associated with sclerosing adenosis. Specifically, complex sclerosing lesion was not identified. Further, it was stated in the report from [facility] pathology that There is some fibrosis and elastotic fibrosis associated with the fibrocystic changes and this could correlate with the radiologic impression of a possible complex sclerosing lesion. On review of the imaging by Dr. Lizabeth Lake, the mammographic area is felt to be benign and concordant with the diagnosis of fibrocystic change with nodular sclerotic lobules. The mammographic appearance could also be consistent with the original diagnosis of complex sclerosing lesion. It has been stable since 2016. IMPRESSION: Right breast: BI-RADS Category Assessment 1: Negative. Left breast: BI-RADS Category Assessment 2: Benign Findings. 1. Area of architectural distortion which has been stable since 2016 is consistent with the [facility] pathology department reading of benign fibrocystic change with nodular sclerotic lobules and early sclerosing adenosis. It is benign and concordant. 2. There are benign fibrocystic changes noted in other areas of the breast. OVERALL IMPRESSION: BI-RADS Category Assessment 2: Benign Findings. Recommendation: On review Dr. Ta's office notes from 01/12/18, the patient meets criteria for MRI screening. Breast MR screening in addition to screening annual mammography is therefore recommended. Special attention should be paid to the area of architectural distortion in the upper outer aspect of the left breast when the patient has her screening breast MR. Dr. Chela Ta will discuss the results of this interpretation and recommendations with the patient. I have personally reviewed the images and the above interpretation and agree with the findings. Chela Ta MD [facility] documented in this encounter Visit Diagnoses Diagnosis Breast mass- Primary Lump or mass in breast documented in this encounter Care Teams Brick Baker Relationship Specialty Start Date End Date Michelle Shannon MD [address] [place] [phone] PCP - General 09/08/11 documented as of this encounter
--- OUTSIDE RECORDS SUMMARY | 2024-04-28 15:57 | XMS_ITS | Encounter Summary ---
Author Organization [facility] Address [address] [place] [address] Care Team Providers Care Insurance Healthcare Representative Name Role Phone Michelle Shannon MD Primary Care Provider + Reason for Referral * Radiology Services (Routine) - New Request Specialty Diagnoses / Procedures Referred By Thelma t Referred To Contact Diagnoses Left breast mass Procedures RAD US BREAST BIOPSY Michelle Shannon MD [address] [place] [phone] Referral ID Status Reason Start Date Expiration Date V isits Requested Visits Authorized [id number] New Request 12/27/2017 1 1 Reason for Visit * Reason Onset Date Comments Other 12/27/2017 Encounter Details Date Type Department Care Team (Late st Contact Info) Description 12/27/2017 Telephone [facility] [address] [place] [address] Michelle Shannon MD [address] [place] [phone] Other Social History Tobacco Use Types [...] Addendum Note - Michelle Shannon MD - 12/27/2017 2211 EDTAddended by: MICHELLE SHANNON on: 12/27/2017 22:11 Modules accepted: Orders * Addendum Note - Michelle Shannon MD - 12/27/[address]79 EDTAddended by: MICHELLE SHANNON on: 12/27/2017 22:09 Modules accepted: Orders * Telephone Encounter - Mandi Leon - 12/27/2017 1527 EDT Pt is having a left breast stereotactic biopsy. The indication is a mass. Radiology at [facility] would like an order for this faxed to [phone]. If you have any questions, their number is [phone]. Mandi Leon MA documented in this encounter Plan of Treatment Upcoming Encounters Date Type Department Care Team (Late st Contact Info) Description 06/08/2024 13:30 EDT Office Visit [facility] [address] [facility] [address] [place], [place] [phone] Michelle Shannon MD [address] [place] [phone] Scheduled Orders Name Type Priority Associated Diagnoses Orde r Schedule RAD US BREAST BIOPSY Imaging Routine Left breast mass Ordered: 12/27/2017 documented as of this encounter Visit Diagnoses Diagnosis Left breast mass- Primary Lump or mass in breast documented in this encounter Care Teams Insurance Healthcare Representative Relationship Specialty Start Date End Date Michelle Shannon MD [address] [place] [phone] PCP - General 09/08/11 documented as of this encounter
--- OUTSIDE RECORDS SUMMARY | 2024-04-28 15:57 | XMS_ITS | Encounter Summary ---
Author Organization [facility] Address [address] [place] [address] Care Team Providers Care Curriculum Developer Name Role Phone Michelle Shannon MD Primary Care Provider + Reason for Visit * Reason Onset Date Comments Medications Refill 08/30/2017 Encounter Details Date Type Department Care Team (Late st Contact Info) Description 08/30/2017 Refill [facility] [address] [place] [phone] Michelle Shannon MD [address] [place] [phone] Medications Refill Social History Tobacco Use Types [...] by mouth at bedtime. 30 Tab 2 08/30/2017 10/05/2017 topiramate (TOPAMAX) 50 mg tablet Take 1 Tab by mouth 2 times daily. 180 Tab 3 08/30/2017 10/27/2018 documented in this encounter Plan of Treatment Upcoming Encounters Date Type Department Care Team (Late st Contact Info) Description 06/08/2024 13:30 EDT Office Visit [facility] [address] [place], [place] [phone] Michelle Shannon MD [address] [place] [phone] documented as of this encounter Visit Diagnoses Not on filedocumented in this encounter Discontinued Medications Medication Sig Discontinue Reason Start Date End Da te topiramate (TOPAMAX) 50 mg tabletIndications:Migrain e with aura, without mention of intractable migraine without mention of status migrainosus Take 1 Tab by mouth 2 times daily. Reorder 03/24/2012 08/30/2017 aripiprazole (ABILIFY) 10 mg tablet Take 10 mg by mouth daily. Reorder 08/30/2017 documented as of this encounter Care Teams Curriculum Developer Relationship Specialty Start Date End Date Michelle Shannon MD [address] [place] [phone] PCP - General 09/08/11 documented as of this encounter
--- OUTSIDE RECORDS SUMMARY | 2024-04-28 15:57 | XMS_ITS | Encounter Summary ---
Author Organization [facility] Address [address] [place] [address] Care Team Providers Care County Agent Name Role Phone Michelle Shannon MD Primary Care Provider + Reason for Visit * Reason Onset Date Comments Medications Refill 04/24/2018 Encounter Details Date Type Department Care Team (Late st Contact Info) Description 04/24/2018 Refill [facility] [address] [place] [phone] Michelle Shannon MD [address] [place] [phone] Medications Refill Social History Tobacco Use [...] * Telephone Encounter - Mandi Leon - 04/24/2018 1425 EDT Pt is requesting a refill of Clonazepam 1mg. Mandi Leon MA documented in this encounter Plan of Treatment Upcoming Encounters Date Type Department Care Team (Late st Contact Info) Description 06/08/2024 13:30 EDT Office Visit [facility] [address] [place], [place] [phone] Michelle Shannon MD [address] [place] [phone] documented as of this encounter Visit Diagnoses Not on filedocumented in this encounter Care Teams County Agent Relationship Specialty Start Date End Date Michelle Shannon MD [address] [place] [phone] PCP - General 09/08/11 documented as of this encounter
--- OUTSIDE RECORDS SUMMARY | 2024-04-28 15:57 | XMS_ITS | Encounter Summary ---
Author Organization [facility] Address [address] [place] [address] Care Team Providers Care Transfer Station Operator Name Role Phone Michelle Shannon MD Primary Care Provider + Encounter Details Date Type Department Care Team (Late st Contact Info) Description 01/06/2018 Results Only Imaging [facility] [address] [place], [place] [phone] Susana Lake MD [address] [facility], Level [address] [place] [phone] Social History Tobacco Use Types [...] Info) Description 06/08/2024 13:30 EDT Office Visit [facility] [address] [facility] [address] [place], [place] [phone] Michelle Shannon MD [address] [place] [phone] Pending Results Name Type Priority Associated Diagnoses Date /Time OUTSIDE [facility] - US BREAST Imaging 11/08/2017 7:32 EST OUTSIDE IMAGES - MAMMO BREAST Imaging 10/27/2017 7:32 EST documented as of this encounter Visit Diagnoses Not on filedocumented in this encounter Care Teams Transfer Station Operator Relationship Specialty Start Date End Date Michelle Shannon MD [address] [place] [phone] PCP - General 09/08/11 documented as of this encounter
--- OUTSIDE RECORDS SUMMARY | 2024-04-28 15:57 | XMS_ITS | Encounter Summary ---
Author Organization [facility] Address [address] [place] [address] Care Team Providers Care Hardware Manager Name Role Phone Michelle Shannon MD Primary Care Provider + Reason for Visit * Reason Onset Date Comments Medications Refill 04/18/2018 Encounter Details Date Type Department Care Team (Late st Contact Info) Description 04/18/2018 Refill [facility] [address] [place] [phone] Michelle Shannon MD [address] [place] [phone] Medications Refill Social History Tobacco Use [...] * Telephone Encounter - Chanel Mac - 04/18/2018 1205 EDT Pt would like refill on ADDERALL XR 10 mg BID.Chanel Mac documented in this encounter Plan of Treatment Upcoming Encounters Date Type Department Care Team (Late st Contact Info) Description 06/08/2024 13:30 EDT Office Visit [facility] [address] [place], [place] [phone] Michelle Shannon MD [address] [place] [phone] documented as of this encounter Visit Diagnoses Not on filedocumented in this encounter Care Teams Hardware Manager Relationship Specialty Start Date End Date Michelle Shannon MD [address] [place] [phone] PCP - General 09/08/11 documented as of this encounter
--- OUTSIDE RECORDS SUMMARY | 2024-04-28 15:57 | XMS_ITS | Encounter Summary ---
Author Organization [facility] Address [address] [place] [address] Care Team Providers Care Bath Solution Maker Name Role Phone Michelle Shannon MD Primary Care Provider + Reason for Visit * Reason Comments Other Encounter Details Date Type Department Care Team (Late st Contact Info) Description 05/31/2018 Refill [facility] [address] [place], [place] [phone] Michelle Shannon MD [address] [place] [phone] Other Social History Tobacco Use [...] at bedtime 28 Tab 2 05/31/2018 08/30/2018 documented in this encounter Plan of Treatment Upcoming Encounters Date Type Department Care Team (Late st Contact Info) Description 06/08/2024 13:30 EDT Office Visit [facility] [address] [place] [address] Michelle Shannon MD [address] [place] [phone] documented as of this encounter Visit Diagnoses Not on filedocumented in this encounter Discontinued Medications Medication Sig Discontinue Reason Start Date End Da te clonazePAM (KLONOPIN) 1 mg tablet take 1 tablet by mouth at bedtime Reorder 02/22/2018 05/31/2018 documented as of this encounter Care Teams Bath Solution Maker Relationship Specialty Start Date End Date Michelle Shannon MD [address] [place] [phone] PCP - General 09/08/11 documented as of this encounter
--- OUTSIDE RECORDS SUMMARY | 2024-04-28 15:57 | XMS_ITS | Encounter Summary ---
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); REM sleep behavior disorder; Vitamin D deficiency; Need for influenza vaccination; Abnormal weight gain; Pure hypercholesterolemia Social History [...] Reading Time Taken Comments Blood Pressure 106/70 09/16/2017 1012 EST Pulse 91 09/16/2017 1012 EST Temperature 36.9 ??C (98.4 ??F) 09/16/2017 1012 EST Respiratory Rate - - Oxygen Saturation 98% 09/16/2017 1012 EST Inhaled Oxygen Concentration - - Weight 76.7 kg (169 lb) 09/16/2017 1012 EST Height - - Body Mass Index 28.12 06/24/2016 1121 EDT documented in this encounter Ordered Prescriptions Prescription Sig Dispensed Refills Start Date End Da te DULoxetine (CYMBALTA) 60 mg capsule Take 1 Cap by mouth daily. 90 Cap 1 09/16/2017 06/06/2018 clonazePAM (KLONOPIN) 1 mg tablet take 1 tablet by mouth at bedtime 28 Tab 2 09/16/2017 12/14/2017 loratadine (CLARITIN) 10 mg tablet Take 1 Tab by mouth daily. 100 Tab 1 09/16/2017 10/07/2021 dextroamphetamine-ampheta mine (ADDERALL XR) 10 mg XR capsule Take 1 Cap by mouth 3 times daily. Daily Max: 30 mg 84 Cap 09/16/2017 11/18/2017 clonazePAM (KLONOPIN) 1 mg tablet take 1 tablet by mouth at bedtime 28 Tab 2 09/16/2017 09/16/2017 documented in this encounter Progress Notes * Michelle Shannon MD - 09/16/2017 1000 EST Subjective: Patient ID: Jane Blair is an 42 y.o. female. Chief Complaint Patient presents with ??? Medication Management HPI Pt has watery, itchy runny eyes. H/o rosacea, but also has been out of loratidine for 1 week due tocost. Her insurance changes in Sep and she is hoping her insurance will cover it. Still using Flonase and ear still feels a bit plugged. Protonix is helping more now that she is taking it accurately and with good compliance. Mood is doing well. Feels stable socially. Motivation is good. She completed her semester at schoolwith A's. Sleeping difficulties related to narcolepsy and hypersomnia are unchanged. Misses some doses of medication due to sleeping through meds. She brings in 11 extra tabs of Adderall today. She is complaint with Abilify and Duloxetine. She has not been compliant with Vitamin D Patient Active Problem List Diagnosis ??? Narcolepsy [...] mouth at bedtime. 30 Tab 2 ??? oypmbrg-mjvsplgpnfwbw-kacrrosm (EXCEDRIN MIGRAINE) 250-250-65 mg per tablet Take 1 Tab by mouthevery 6 hours as needed. Indications: MIGRAINE ??? Azelaic Acid (FINACEA) 15 % gel Apply topically 2 times daily. ??? calcium-vitamin D (OS-NOEMY D) 500 mg(1,250mg) -200 unit per tablet Take 1 Tab by mouth 2 times daily with breakfast and dinner. 60 Tab 0 ??? fluticasone (FLONASE) 50 mcg/actuation nasal spray Instill 2 Sprays into both nostrils daily. 16 g 0 ??? IBUPROFEN (ADVIL ORAL) Take by mouth daily as needed. ??? melatonin 10 mg capsule Take by mouth. ??? metroNIDAZOLE (METROGEL) 0.75 % gel Apply topically 2 times daily. ??? naratriptan (AMERGE) 2.5 mg tablet Take as directed. Indications: MIGRAINE 12 Tab 11 ??? omeprazole (PRILOSEC) 20 mg capsule Take 20 mg by mouth daily. ??? topiramate (TOPAMAX) 50 mg tablet Take 1 Tab by mouth 2 times daily. 180 Tab 3 No current facility-administered medications on file prior to visit. No Known Allergies Review of Systems Constitutional: Positive for malaise/fatigue. Negative for chills, fever. Weight has increased [id number] over 1 year HENT: Positive for congestion [...] has insomnia. - See HPI Objective: BP 106/70 Pulse 91 Temp 36.9 ??C (98.4 ??F) (Tympanic) Wt 76.7 kg (169 lb) SpO2 98% BMI 28.12 kg/m2 Physical Exam Constitutional: She appears well-developed [...] Diagnoses and all orders for this visit: Primary narcolepsy without cataplexy REM sleep behavior disorder Vitamin D deficiency - Vitamin D (25,OH); Future Need for influenza vaccination Abnormal weight gain - TSH; Future - Lipid Profile (Includes Cholesterol, Triglycerides, HDL, LDL); Future - Glucose, Serum; Future Pure hypercholesterolemia - Lipid Profile (Includes Cholesterol, Triglycerides, HDL, LDL); Future Other orders - Discontinue: clonazePAM (KLONOPIN) 1 mg tablet; take 1 tablet by mouth at bedtime - dextroamphetamine-amphetamine (ADDERALL XR) 10 mg XR capsule; Take 1 Cap by mouth 3 times daily. Daily Max: 30 mg - loratadine (CLARITIN) 10 mg tablet; Take 1 Tab by mouth daily. - clonazePAM (KLONOPIN) 1 mg tablet; take 1 tablet by mouth at bedtime - DULoxetine (CYMBALTA) 60 mg capsule; Take 1 Cap by mouth daily. GERD- Improving Continue Protoninx in the AM Avoid alcohol, peppermint, fatty foods and caffeine Limit carbonated beverages Sleep with the head of the bed elevated Avoid tight fitting clothing Avoid eating large meals close to bedtime Work on weight loss Eustachian tube dysfunction due to allergic rhinitis Continue Flonase Loratidine OTC, not covered by insurance so compliance is sporadic. Will try to get covered throughinsurance Narcolepsy and REM sleep disorder Continue Adderall during the day and Clonazepam at night Major depressive disorder On duloxetine and Abilify Weight gain- possibly med related, but will check labs Vit D deficiency Encouraged better compliance with supplement Goals None Michelle Shannon MD documented in this encounter Plan of Treatment Upcoming Encounters Date Type Department Care Team (Late st Contact Info) Description 06/08/2024 13:30 EDT Office Visit [facility] [address] [facility] [address] [place] [address] Michelle Shannon MD [address] [place] [phone] documented as of this encounter Results * GLUCOSE, SERUM (10/03/2017 12:04 EST) Glucose, Serum 89 70 - 100 mg/dl 10/03/2017 13:23 EST [facility] Blood specimen (specimen) BLOOD SPECIMEN / Unknown 10/03/2017 12:04 EST 10/03/2017 12:51 EST Michelle Shannon MD CHEMISTRY & BLOO D GAS ORDERABLES [facility] [address] [place] [address] * LIPID PROFILE (INCLUDES CHOLESTEROL, TRIGLYCERIDES, HDL, LDL) (10/03/2017 12:04 EST) Cholesterol 189 mg/dl 10/03/2017 13:23 EST [facility] Comment: Desirable:<200 Borderline High:200-239 High:>bd=986 Triglycerides 121 mg/dl 10/03/2017 13:23 EST [facility] Comment: Normal:<150 Borderline High:150-199 High:200-499 Very High:>fq=851 HDL 45 mg/dl 10/03/2017 13:23 [facility] Comment: Low:<40 Normal:40-60 Desirable: >60 LDL, Calculated 120 mg/dl 8 13:23 [facility] Comment: Optimal:<100 Near Optimal:100-129 Borderline High:130-159 High:160-189 Very High:>lp=129 Chol/HDL Ratio 4.2 10/03/2017 13:23 [facility] Fasting? YES 10/03/2017 12:00 [facility] Non HDL Cholesterol 144 mg/dl 10/03/2017 13:23 [facility] Comment: Desirable:<130 Borderline:130-159 High: 160-189 Very High: >vn=511 Blood specimen (specimen) BLOOD SPECIMEN / Unknown 10/03/2017 12:04 EST 10/03/2017 12:51 EST Michelle Shannon MD CHEMISTRY & BLOO D GAS ORDERABLES Performing Organization Address [facility] Co de Phone Number [facility] [address] [place] [address] * TSH (10/03/2017 12:04 EST) TSH 1.77 0.47 - 4.68 uIU/ml 10/03/2017 13:53 [facility] Blood specimen (specimen) BLOOD SPECIMEN / Unknown 10/03/2017 12:04 EST 10/03/2017 12:51 EST Michelle Shannon MD CHEMISTRY & BLOO D GAS ORDERABLES Performing Organization Address [facility] Co de Phone Number [facility] [address] [place] [address] * (ABNORMAL) VITAMIN D (25,OH) (10/03/2017 12:04 EST) 25OH Vitamin D Tot 24.9(L) 30 - 100 ng/ml 10/03/2017 14:32 [facility] Comment: Reference Range: Deficient = <10 ng/ml Insufficient = 10-30 ng/ml Sufficient = 30-100 ng/ml Toxic = >100 ng/ml Blood specimen (specimen) BLOOD SPECIMEN / Unknown 10/03/2017 12:04 EST 10/03/2017 12:51 EST Michelle Shannon MD CHEMISTRY & BLOO D GAS ORDERABLES [facility] [address] [place] [address] documented in this encounter Visit Diagnoses Diagnosis Primary narcolepsy without cataplexy- Primary REM sleep behavior disorder Vitamin D deficiency Unspecified vitamin D deficiency Need for influenza vaccination Need for prophylactic vaccination and inoculation against influenza Abnormal weight gain Pure hypercholesterolemia Pure hypercholesterolemia documented in this encounter Discontinued Medications Medication Sig Discontinue Reason Start Date End Da te clonazePAM (KLONOPIN) 1 mg tablet take 1 tablet by mouth at bedtime Reorder 07/27/2017 09/16/2017 dextroamphetamine-amphe tamine (ADDERALL XR) 10 mg XR capsule Take 1 Cap by mouth 3 times daily. Earliest Fill Date: 07/25/17 Daily Max: 30 mg Reorder 07/25/2017 09/16/2017 loratadine (CLARITIN) 10 mg tablet Take 1 Tab by mouth daily. Reorder 03/31/2017 09/16/2017 clonazePAM (KLONOPIN) 1 mg tablet take 1 tablet by mouth at bedtime Reorder 09/16/2017 09/16/2017 duloxetine (CYMBALTA) 30 mg capsule Take 60 mg by mouth daily. 06/19/2010 09/16/2017 documented as of this encounter Care Teams Pull Tab Dealer Relationship Specialty Start Date End Date Michelle Shannon MD [address] [place] [phone] PCP - General 09/08/11 documented as of this encounter
--- OUTSIDE RECORDS SUMMARY | 2024-04-28 15:57 | XMS_ITS | Encounter Summary ---
Author Organization [facility] Address [address] [place] [address] Care Team Providers Care Ice Carver Name Role Phone Michelle Shannon MD Primary Care Provider + Encounter Details Date Type Department Care Team (Late st Contact Info) Description 11/18/2017 Orders Only [facility] [address] [place], [place] [phone] Michelle Shannon MD [address] [place] [phone] Episodic mood disorder (CMS-HCC) (HCC-CMS) (Primary Dx) Social History Tobacco Use [...] Info) Description 06/08/2024 13:30 EDT Office Visit [facility] [address] [place], [place] [phone] Michelle Shannon MD [address] [place] [phone] documented as of this encounter Visit Diagnoses Diagnosis Episodic mood disorder ([facility])- Primary Unspecified episodic mood disorder documented in this encounter Discontinued Medications Medication Sig Discontinue Reason Start Date End Da te omeprazole (PRILOSEC) 20 mg capsule Take 20 mg by mouth daily. 11/18/2017 documented as of this encounter Care Teams Ice Carver Relationship Specialty Start Date End Date Michelle Shannon MD [address] [place] [phone] PCP - General 09/08/11 documented as of this encounter
--- OUTSIDE RECORDS SUMMARY | 2024-04-28 15:57 | XMS_ITS | Encounter Summary ---
Author Organization [facility] Address [address] [place] [address] Care Team Providers Care Radio Performer Name Role Phone Michelle Shannon MD Primary Care Provider + Reason for Visit * Reason Onset Date Comments Medications Refill 06/02/2018 Encounter Details Date Type Department Care Team (Late st Contact Info) Description 06/02/2018 Refill [facility] [address] [place], [place] [phone] Michelle Shannon MD [address] [place] [phone] Medications Refill Social History Tobacco [...] * Telephone Encounter - Ritika Morris - 06/02/2018 0949 EDT RX Refill documented in this encounter Plan of Treatment Upcoming Encounters Date Type Department Care Team (Late st Contact Info) Description 06/08/2024 13:30 EDT Office Visit [facility] [address] [place] [address] Michelle Shannon MD [address] [place] [phone] documented as of this encounter Visit Diagnoses Not on filedocumented in this encounter Care Teams Radio Performer Relationship Specialty Start Date End Date Michelle Shannon MD [address] [place] [phone] PCP - General 09/08/11 documented as of this encounter
--- OUTSIDE RECORDS SUMMARY | 2024-04-28 15:57 | XMS_ITS | Encounter Summary ---
Author Organization [facility] Address [address] [place] [address] Care Team Providers Care Swatch Maker Name Role Phone Michelle Shannon MD Primary Care Provider + Reason for Visit * Reason Onset Date Comments Medications Refill 04/19/2018 Encounter Details Date Type Department Care Team (Late st Contact Info) Description 04/19/2018 Refill Benito Crowley MD, [address] [phone] Michelle Shannon MD [address] [place] [phone] Medications Refill Social History Tobacco Use [...] Info) Description 06/08/2024 13:30 EDT Office Visit [facility] [address] [place], [place] [phone] Michelle Shannon MD [address] [place] [phone] documented as of this encounter Visit Diagnoses Not on filedocumented in this encounter Care Teams Swatch Maker Relationship Specialty Start Date End Date Michelle Shannon MD [address] [place] [phone] PCP - General 09/08/11 documented as of this encounter
--- OUTSIDE RECORDS SUMMARY | 2024-04-28 15:57 | XMS_ITS | Encounter Summary ---
Author Organization [facility] Address [address] [place] [address] Care Team Providers Care Spragger Name Role Phone Michelle Shannon MD Primary Care Provider + Reason for Referral * Radiology Services (Routine) - New Request Specialty Diagnoses / Procedures Referred By Controlo t Referred To Contact Radiology (Diagnostic) Diagnoses Abnormal mammogram Procedures MA BREAST OUTSIDE CONSULTATION Michelle Shannon MD [address] [place] [phone] Referral ID Status Reason Start Date Expiration Date V isits Requested Visits Authorized [id number] New Request 10/25/2017 1 1 Reason for Visit * Reason Onset Date Comments Orders (Non Pre-visit) 10/25/2017 Mammogram 10/25/2017 Ultrasound 10/25/2017 Encounter Details Date Type Department Care Team (Late st Contact Info) Description 10/25/2017 Telephone [facility] [address] [place] [address] Michelle Shannon MD [address] [place] [phone] Orders (Non Pre-visit); Mammogram; Ultrasound Social History Tobacco Use Types Packs/Day Years [...] Addendum Note - Michelle Shannon MD - 10/25/2017 2116 ESTAddended by: MICHELLE SHANNON on: 10/25/2017 21:16 Modules accepted: Orders * Telephone Encounter - Azeb Sher - 10/25/2017 1131 EST [facility] Radiology requested order for pt's 6 mo f/u for a bilateral diagnostic mammogram and L breast ultrasound. FAX [phone] [facility] stated that pt is already scheduled would just need theorders. Azeb Li documented in this encounter Plan of Treatment Upcoming Encounters Date Type Department Care Team (Late st Contact Info) Description 06/08/2024 13:30 EDT Office Visit [facility] [address] [place] [address] Michelle Shannon MD [address] [place] [phone] Scheduled Orders Name Type Priority Associated Diagnoses Orde r Schedule MA BREAST OUTSIDE CONSULTATION Imaging Routine Abnormal mammogram Ordered: 10/25/2017 documented as of this encounter Visit Diagnoses Diagnosis Abnormal mammogram- Primary Abnormal mammogram, unspecified documented in this encounter Care Teams Spragger Relationship Specialty Start Date End Date Michelle Shannon MD [address] [place] [phone] PCP - General 09/08/11 documented as of this encounter
--- OUTSIDE RECORDS SUMMARY | 2024-04-28 15:57 | XMS_ITS | Encounter Summary ---
Author Organization [facility] Address [address] [place] [address] Care Team Providers Care Computer Assembler Name Role Phone Michelle Shannon MD Primary Care Provider + Reason for Visit * Reason Onset Date Comments Medications Refill 07/27/2017 Encounter Details Date Type Department Care Team (Late st Contact Info) Description 07/27/2017 Refill [facility] [address] [place], [place] [phone] Michelle Shannon MD [address] [place] [phone] Medications Refill Social History Tobacco [...] Info) Description 06/08/2024 13:30 EDT Office Visit [facility] [address] [place], [place] [phone] Michelle Shannon MD [address] [place] [phone] documented as of this encounter Visit Diagnoses Not on filedocumented in this encounter Care Teams Computer Assembler Relationship Specialty Start Date End Date Michelle Shannon MD [address] [place] [phone] PCP - General 09/08/11 documented as of this encounter
--- OUTSIDE RECORDS SUMMARY | 2024-04-28 15:57 | XMS_ITS | Encounter Summary ---
Author Organization [facility] Address [address] [place] [address] Care Team Providers Care Fire Inspector Name Role Phone Michelle Shannon MD Primary Care Provider + Reason for Visit * Reason Onset Date Comments Medication Problem 06/27/2017 Encounter Details Date Type Department Care Team (Late st Contact Info) Description 06/27/2017 Telephone [facility] [address] [place] [phone] Michelle Shannon MD [address] [place] [phone] Medication Problem Social History Tobacco Use Types Packs/Day Years [...] * Telephone Encounter - Natasha Crowley - 06/27/2017 1624 EDT TW reports she was given the wrong adderall script, it was supposed to be 10 mg XR. Wrong script isat RA Celaya documented in this encounter Plan of Treatment Upcoming Encounters Date Type Department Care Team (Late st Contact Info) Description 06/08/2024 13:30 EDT Office Visit [facility] [address] [place], [place] [phone] Michelle Shannon MD [address] [place] [phone] documented as of this encounter Visit Diagnoses Not on filedocumented in this encounter Care Teams Fire Inspector Relationship Specialty Start Date End Date Michelle Shannon MD [address] [place] [phone] PCP - General 09/08/11 documented as of this encounter
--- OUTSIDE RECORDS SUMMARY | 2024-04-28 15:57 | XMS_ITS | Encounter Summary ---
Author Organization [facility] Address [address] [place] [address] Care Team Providers Care Paver Layer Name Role Phone Michelle Shannon MD Primary Care Provider + Reason for Visit * Reason Onset Date Comments Update 06/23/2018 Encounter Details Date Type Department Care Team (Late st Contact Info) Description 06/23/2018 Telephone [facility] [address] [place] [address] Michelle Shannon MD [address] [place] [phone] Update Social History Tobacco Use Types Packs/Day Years [...] encounter Miscellaneous Notes * Telephone Encounter - Chnael Mac - 06/23/2018 1158 EDT [facility] fax family Physical therapy called to request medication list be faxed over.Pt did not have list. Pt was last seen 06/12/18.Chanel Mac documented in this encounter Plan of Treatment Upcoming Encounters Date Type Department Care Team (Late st Contact Info) Description 06/08/2024 13:30 EDT Office Visit [facility] [address] [place], [place] [phone] Michelle Shannon MD [address] [place] [phone] documented as of this encounter Visit Diagnoses Not on filedocumented in this encounter Care Teams Paver Layer Relationship Specialty Start Date End Date Michelle Shannon MD [address] [place] [phone] PCP - General 09/08/11 documented as of this encounter
--- OUTSIDE RECORDS SUMMARY | 2024-04-28 15:57 | XMS_ITS | Encounter Summary ---
Author Organization [facility] Address [address] [place] [address] Care Team Providers Care Whanau Support Worker Name Role Phone Michelle Shannon MD Primary Care Provider + Encounter Details Date Type Department Care Team (Latest Contact Info) Description 10/03/2017 11:55 EST - 10/03/2017 23:59 EST Hospital Encounter [place] [id number] [place] [address] Michelle Shannon MD [address] [place] [phone] Discharge Disposition: Home or Self Care Social [...] as of this encounter Discharge Diagnoses Diagnosis R63.5 Abnormal weight gain-R63.5[ICD-10-CM] E78.00 Pure hypercholesterolemia, unspecified-E78.00[ICD-10-CM] E55.9 Vitamin D deficiency, unspecified-E55.9[ICD-10-CM] documented in this encounter Medications at Time of Discharge Medication Sig Dispensed Refills Start Date End Date mnutucc-kadlqqrjpqxud-g affeine (EXCEDRIN MIGRAINE) 250-250-65 mg per tabletIndications:migra ine Take 1 Tablet by mouth every 6 hours as needed. metroNIDAZOLE (METROGEL) 0.75 % gel Apply topically 2 times daily. ARIPiprazole (ABILIFY) 10 mg tablet Take 1 Tab by mouth at bedtime. 30 Tab 2 08/30/2017 10/05/2017 Azelaic Acid (FINACEA) 15 % gel Apply topically 2 times daily. 02/06/2021 calcium-vitamin D (OS-NOEMY D) 500 mg(1,250mg) -200 unit per tabletIndications:MDD (major depressive disorder), recurrent episode, moderate ([facility]) Take 1 Tab by mouth 2 times daily with breakfast and dinner. 60 Tab 0 08/20/2014 11/19/2019 clonazePAM (KLONOPIN) 1 mg tablet take 1 tablet by mouth at bedtime 28 Tab 2 09/16/2017 12/14/2017 dextroamphetamine-amphe tamine (ADDERALL XR) 10 mg XR capsule Take 1 Cap by mouth 3 times daily. Daily Max: 30 mg 84 Cap 09/16/2017 11/18/2017 DULoxetine (CYMBALTA) 60 mg capsule Take 1 [...] Indications: MIGRAINE 12 Tab 11 03/24/2012 02/06/2021 omeprazole (PRILOSEC) 20 mg capsule Take 20 mg by mouth daily. 11/18/2017 topiramate (TOPAMAX) 50 mg tablet Take 1 Tab by mouth 2 times daily. 180 Tab 3 08/30/2017 10/27/2018 documented as of this encounter Discharge Disposition Disposition Code Departure Means Destination Home or Self [facility] documented in this encounter Plan of Treatment Upcoming Encounters Date Type Department Care Team (Ling roe Contact Info) Description 06/08/2024 13:30 EDT Office Visit [facility] [address] [place], [place] [phone] Michelle Shannon MD [address] [place] [phone] documented as of this encounter Visit Diagnoses Not on filedocumented in this encounter Care Teams Whanau Support Worker Relationship Specialty Start Date End Date Michelle Shannon MD [address] [place] [phone] PCP - General 09/08/11 documented as of this encounter
--- OUTSIDE RECORDS SUMMARY | 2024-04-28 15:57 | XMS_ITS | Encounter Summary ---
Author Organization [facility] Address [address] [place] [address] Care Team Providers Care Blood Bank Coordinator Name Role Phone Michelle Shannon MD Primary Care Provider + Reason for Visit * Reason Onset Date Comments Medications Refill 05/15/2018 Encounter Details Date Type Department Care Team (Late st Contact Info) Description 05/15/2018 Refill [facility] [address] [place], [place] [phone] Michelle Shannon MD [address] [place] [phone] Medications Refill Social History Tobacco [...] Info) Description 06/08/2024 13:30 EDT Office Visit [facility] [address] [place], [place] [phone] Michelle Shannon MD [address] [place] [phone] documented as of this encounter Visit Diagnoses Not on filedocumented in this encounter Care Teams Blood Bank Coordinator Relationship Specialty Start Date End Date Michelle Shannon MD [address] [place] [phone] PCP - General 09/08/11 documented as of this encounter
--- OUTSIDE RECORDS SUMMARY | 2024-04-28 15:57 | XMS_ITS | Encounter Summary ---
Author Organization [facility] Address [address] [place] [address] Care Team Providers Care Phosphoric Acid Operator Name Role Phone Michelle Shannon MD Primary Care Provider + Reason for Visit * Reason Onset Date Comments Medications Refill 03/24/2018 Encounter Details Date Type Department Care Team (Late st Contact Info) Description 03/24/2018 Refill [facility] [address] [place], [place] [phone] Michelle Shannon MD [address] [place] [phone] Medications Refill Social History Tobacco [...] by mouth at bedtime. 30 Tab 2 03/25/2018 07/07/2018 documented in this encounter Plan of Treatment Upcoming Encounters Date Type Department Care Team (Late st Contact Info) Description 06/08/2024 13:30 EDT Office Visit [facility] [address] [place] [address] Michelle Shannon MD [address] [place] [phone] documented as of this encounter Visit Diagnoses Not on filedocumented in this encounter Discontinued Medications Medication Sig Discontinue Reason Start Date End Da te ARIPiprazole (ABILIFY) 10 mg tablet Take 1 Tab by mouth at bedtime. Reorder 11/23/2017 03/24/2018 documented as of this encounter Care Teams Phosphoric Acid Operator Relationship Specialty Start Date End Date Michelle Shannon MD [address] [place] [phone] PCP - General 09/08/11 documented as of this encounter
--- OUTSIDE RECORDS SUMMARY | 2024-04-28 15:57 | XMS_ITS | Encounter Summary ---
Author Organization [facility] Address [address] [place] [address] Care Team Providers Care Supplemental Nurse Name Role Phone Michelle Shannon MD Primary Care Provider + Reason for Visit * Reason Onset Date Comments Medications Refill 06/10/2017 Encounter Details Date Type Department Care Team (Late st Contact Info) Description 06/10/2017 Refill [facility] [address] [place], [place] [phone] Raisa Dolan, JOSEFINA [address] [facility] [address] [place] [address] Medications Refill Social History Tobacco [...] Info) Description 06/08/2024 13:30 EDT Office Visit [facility] [address] [place], [place] [phone] Michelle Shannon MD [address] [place] [phone] documented as of this encounter Visit Diagnoses Not on filedocumented in this encounter Care Teams Supplemental Nurse Relationship Specialty Start Date End Date Michelle Shannon MD [address] [place] [phone] PCP - General 09/08/11 documented as of this encounter
--- OUTSIDE RECORDS SUMMARY | 2024-04-28 15:57 | XMS_ITS | Encounter Summary ---
Author Organization [facility] Address [address] [place] [address] Care Team Providers Care Suction Plate Carrier Cleaner Name Role Phone Michelle Shannon MD Primary Care Provider + Reason for Visit * Reason Comments Other Encounter Details Date Type Department Care Team (Late st Contact Info) Description 06/29/2018 Refill [facility] [address] [place], [place] [phone] Michelle Shannon MD [address] [place] [phone] Other Social History Tobacco Use [...] once daily 90 Tab 3 06/29/2018 10/02/2018 documented in this encounter Plan of Treatment Upcoming Encounters Date Type Department Care Team (Late st Contact Info) Description 06/08/2024 13:30 EDT Office Visit [facility] [address] [place], [place] [phone] Michelle Shannon MD [address] [place] [phone] documented as of this encounter Visit Diagnoses Not on filedocumented in this encounter Discontinued Medications Medication Sig Discontinue Reason Start Date End Da te pantoprazole (PROTONIX) 40 mg tablet take 1 tablet by mouth once daily Reorder 03/27/2018 06/29/2018 documented as of this encounter Care Teams Suction Plate Carrier Cleaner Relationship Specialty Start Date End Date Michelle Shannon MD [address] [place] [phone] PCP - General 09/08/11 documented as of this encounter
--- OUTSIDE RECORDS SUMMARY | 2024-04-28 15:58 | XMS_ITS | Encounter Summary ---
Author Organization [facility] Address [address] [place] [address] Care Team Providers Care Internship Name Role Phone Michelle Shannon MD Primary Care Provider + Encounter Details Date Type Department Care Team (Late st Contact Info) Description 08/13/2014 8:05 EST - 08/13/2014 23:59 [facility] Hospital Encounter [address] [address] Rosemary Hussein MD [address] [place] [address], [facility] [address] [place] [phone] Discharge Disposition: Home or Self Care Social [...] as of this encounter Discharge Diagnoses Diagnosis 296.20 MAJOR DEPRRESSIVE DISORDER,SINGLE EPISODE, UNSPECIFIED[ICD-9-CM] 272.4 HYPERLIPIDEMIA NEC/NOS[ICD-9-CM] documented in this encounter Medications at Time of Discharge Medication Sig Dispensed Refills Start Date End Date ipsewsu-aztwwjigqfwty-ju ffeine (EXCEDRIN MIGRAINE) 250-250-65 mg per tabletIndications:migrai ne Take 1 Tablet by mouth every 6 hours as needed. metroNIDAZOLE (METROGEL) 0.75 % gel Apply topically 2 times daily. aripiprazole (ABILIFY) 10 mg tablet Take 10 mg by mouth daily. 08/30/2017 Azelaic Acid (FINACEA) 15 % gel Apply topically 2 times daily. 02/06/2021 clonazePAM (KLONOPIN) 1 mg tablet take 1 tablet by mouth at bedtime 30 Tab 5 01/05/2014 10/01/2014 cloNIDine HCl (CATAPRES) 0.1 mg tablet Take 1 Tab by mouth 2 times daily. 30 Tab 0 07/31/2014 08/14/2014 dextroamphetamine-amphet amine (ADDERALL XR) 20 mg XR capsule Take 1 Cap by mouth 2 times daily. Earliest Fill Date: 08/23/14 60 Cap 0 08/23/2014 10/18/2014 duloxetine (CYMBALTA) 30 mg capsule Take 60 mg by mouth daily. 06/19/2010 09/16/2017 IBUPROFEN (ADVIL ORAL) Take by mouth daily as needed. 05/19/2023 LEVONORGESTREL-ETH ESTRA (KATHY ORAL) Take by mouth daily. 09/10/20102016 Melatonin 3 mg Tab TAKE 1 TABLET BY MOUTH AT BEDTIME 30 Tab 6 05/26/2012 06/17/2017 naratriptan (AMERGE) 2.5 mg tabletIndications:migrai ne Take as directed. Indications: MIGRAINE 12 Tab 11 03/24/2012 02/06/2021 topiramate (TOPAMAX) 50 mg tabletIndications:Migrai ne with aura, without mention of intractable migraine without mention of status migrainosus Take 1 Tab by mouth 2 times daily. 180 Tab 3 03/24/2012 08/30/2017 documented as of this encounter Discharge Disposition Disposition Code Departure Means Destination Home or Self Longterm documented in this encounter Plan of Treatment Upcoming Encounters Date Type Department Care Team (Late st Contact Info) Description 06/08/2024 13:30 EDT Office Visit [facility] [address] [place], [place] [phone] Michelle Shannon MD [address] [place] [phone] documented as of this encounter Procedures Procedure Name Priority Date/Time Associated Diagnosis Comments VITAMIN D (25,OH) Routine 08/13/2014 8:09 EST documented in this encounter Results * VITAMIN D (25,OH) (08/13/2014 8:09 EST) 25OH Vitamin D Tot 21.5 ng/ml 08/15/2014 12:[address] [facility] Comment: Reference Range: Deficient = <10 ng/ml Insufficient = 10-30 ng/ml Sufficient = 30-100 ng/ml Toxic = >100 ng/ml BLOOD SPECIMEN / Unknown 08/13/2014 8:09 EST 08/13/2014 10:03 EST Rosemary Hussein MD CHEMISTR Y & BLOOD GAS ORDERABLES [facility] [address] [place] [address] documented in this encounter Visit Diagnoses Not on filedocumented in this encounter Care Teams Internship Relationship Specialty Start Date End Date Michelle Shannon MD [address] [place] [phone] PCP - General 09/08/11 documented as of this encounter
--- OUTSIDE RECORDS SUMMARY | 2024-04-28 15:58 | XMS_ITS | Encounter Summary ---
Author Organization [facility] Address [address] [place] [address] Care Team Providers Care Fire Department Marine Engineer Name Role Phone Michelle Shannon MD Primary Care Provider + Encounter Details Date Type Department Care Team (Late st Contact Info) Description 09/04/2014 Documentation Visit [facility] 1 [place], [place] [phone] Milla Orozco [facility] 1 [facility], [address] [place] [phone] Social History Tobacco Use Types Packs/Day Years [...] Info) Description 06/08/2024 13:30 EDT Office Visit [facility] [address] [facility] [address] [place], [place] [phone] Michelle Shannon MD [address] [place] [phone] documented as of this encounter Visit Diagnoses Not on filedocumented in this encounter Care Teams Fire Department Marine Engineer Relationship Specialty Start Date End Date Michelle Shannon MD [address] [place] [phone] PCP - General 09/08/11 documented as of this encounter
--- OUTSIDE RECORDS SUMMARY | 2024-04-28 15:58 | XMS_ITS | Encounter Summary ---
Author Organization [facility] Address [address] [place] [address] Care Team Providers Care Returns Clerk Name Role Phone Michelle Shannon MD Primary Care Provider + Reason for Visit * Reason Onset Date Comments Medications Refill 03/10/2015 Encounter Details Date Type Department Care Team (Late st Contact Info) Description 03/10/2015 Refill [facility] [address] [phone] [place] [address] Medications Refill Social History Tobacco Use Types [...] 1 Cap by mouth 2 times daily Earliest Fill Date: 03/11/15 Daily Max: 2 Caps 60 Cap 0 03/11/2015 04/23/2015 dextroamphetamine-amphet amine (ADDERALL) 10 mg tablet One tab by mouth in the afternoon as needed. Earliest Fill Date: 03/11/15 15 Tab 0 03/11/2015 04/23/2015 documented in this encounter Miscellaneous Notes * Telephone Encounter - Juliana Díaz RN - 03/11/2015 0903 EDT Left message for pt to let know (adderall) prescriptions ready for flower picker at [facility]. * Telephone Encounter - Juliana Díaz RN - 03/10/2015 1430 EDT Called pt and asked her about her refill request for the adderall 10mg request. She stated she had talked to about this; [place] said they tried to take her off, uses prn, aware. Message routed to . * Telephone Encounter - Irina Fernandez - 03/10/2015 1425 EDT PT needs refill on Adderall XR 20mg and Adderall 10mg. 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 documented in this encounter Plan of Treatment Upcoming Encounters Date Type Department Care Team (Late st Contact Info) Description 06/08/2024 13:30 EDT Office Visit [facility] [address] [facility] [address] [place] [address] Michelle Shannon MD [address] [place] [address] [phone] documented as of this encounter Visit Diagnoses Not on filedocumented in this encounter Discontinued Medications Medication Sig Discontinue Reason Start Date End Da te dextroamphetamine-ampheta mine (ADDERALL XR) 20 mg XR capsule Take 1 Cap by mouth 2 times daily Daily Max: 2 Caps Reorder 02/03/2015 03/10/2015 documented as of this encounter Care Teams Returns Clerk Relationship Specialty Start Date End Date Michelle Shannon MD [address] [place] [phone] PCP - General 09/08/11 documented as of this encounter
--- OUTSIDE RECORDS SUMMARY | 2024-04-28 15:58 | XMS_ITS | Encounter Summary ---
Author Organization [facility] Address [address] [place] [address] Care Team Providers Care Portrait Consultant Name Role Phone Michelle Shnanon MD Primary Care Provider + Encounter Details Date Type Department Care Team (Late st Contact Info) Description 08/23/2014 Documentation Visit [facility] 1 [place], [place] [phone] Milla Orozco [facility] 1 [facility], Level [address] [place] [phone] Social History Tobacco Use Types [...] Info) Description 06/08/2024 13:30 EDT Office Visit [facility] [address] [facility] [address] [place], [place] [phone] Michelle Shannon MD [address] [place] [phone] documented as of this encounter Visit Diagnoses Not on filedocumented in this encounter Care Teams Portrait Consultant Relationship Specialty Start Date End Date Michelle Shannon MD [address] [place] [address] [phone] PCP - General 09/08/11 documented as of this encounter
--- OUTSIDE RECORDS SUMMARY | 2024-04-28 15:58 | XMS_ITS | Encounter Summary ---
Author Organization [facility] Address [address] [place] [address] Care Team Providers Care Critical Care Physician Assistant Name Role Phone Michelle Shannon MD Primary Care Provider + Encounter Details Date Type Department Care Team (Late st Contact Info) Description 07/12/2016 Results Only Imaging [facility] [phone] Michelle Shannon MD [address] [place] [phone] Social History Tobacco Use Types Packs/Day [...] Info) Description 06/08/2024 13:30 EDT Office Visit [facility] [address] [facility] [address] [place], [place] [phone] Michelle Shannon MD [address] [place] [phone] documented as of this encounter Visit Diagnoses Not on filedocumented in this encounter Care Teams Critical Care Physician Assistant Relationship Specialty Start Date End Date Michelle Shannon MD [address] [place] [phone] PCP - General 09/08/11 documented as of this encounter
--- OUTSIDE RECORDS SUMMARY | 2024-04-28 15:58 | XMS_ITS | Encounter Summary ---
Author Organization [facility] Address [address] [place] [address] Care Team Providers Care Gold Prospector Name Role Phone Michelle Shannon MD Primary Care Provider + Reason for Visit * Reason Onset Date Comments Medications Refill 12/16/2014 Encounter Details Date Type Department Care Team (Late st Contact Info) Description 12/16/2014 Telephone [facility] Sleep [facility] - [address] [phone] [place] [address] Medications Refill Social History Tobacco Use Types [...] 2 times daily Daily Max: 2 Caps 60 Cap 0 12/16/2014 02/03/2015 documented in this encounter Miscellaneous Notes * Telephone Encounter - Geo Sharma - 12/16/2014 1031 EDT Calling to request a refill of Adderal XR to be picked up. She would like to fern picker around 8:30 AMtomorrow. documented in this encounter Plan of Treatment Upcoming Encounters Date Type Department Care Team (Late st Contact Info) Description 06/08/2024 13:30 EDT Office Visit [facility] [address] [place] [address] Michelle Shannon MD [address] [place] [phone] documented as of this encounter Visit Diagnoses Not on filedocumented in this encounter Discontinued Medications Medication Sig Discontinue Reason Start Date End Da te dextroamphetamine-amph etamine (ADDERALL) 10 mg tablet Take 10 mg by mouth daily Take at 1530 as needed for narcoplepsy . Error 12/16/2014 dextroamphetamine-amph etamine (ADDERALL XR) 20 mg XR capsule Take 1 Cap by mouth 2 times daily Earliest Fill Date: 11/15/14 Daily Max: 2 Caps Reorder 11/15/2014 12/16/2014 documented as of this encounter Care Teams Gold Prospector Relationship Specialty Start Date End Date Michelle Shannon MD [address] [place] [phone] PCP - General 09/08/11 documented as of this encounter
--- OUTSIDE RECORDS SUMMARY | 2024-04-28 15:58 | XMS_ITS | Encounter Summary ---
Author Organization [facility] Address [address] [place] [address] Care Team Providers Care Medical Imaging Technician Name Role Phone Michelle Shannon MD Primary Care Provider + Reason for Visit * Reason Onset Date Comments Other 12/19/2014 Encounter Details Date Type Department Care Team (Late st Contact Info) Description 12/19/2014 Telephone [facility] Sleep Program - S [address] [phone] Juliana Díaz RN [address] [place] [address] Other Social History Tobacco Use Types Packs/Day [...] Telephone Encounter - Juliana Díaz RN - 12/19/2014 1601 EDT Pt called again, let her know she has a prescription here from November waiting for her to pickle water pump operator, never picked up Oct script. Let her know that her voice mail is not set up on her phone. * Telephone Encounter - Juliana Díaz RN - 12/19/2014 1550 EDT Called pt, no answer, voice mail not set up. * Telephone Encounter - Juliana Díaz RN - 12/19/2014 1436 EDT Called pt again at both number left on message and home number, no answer and unable to leave message as voice mail not set up. * Telephone Encounter - Juliana Díaz RN - 12/19/2014 1313 EDT Pt called and left message stating her script for her Adderall is dated for Oct and she cannot fill. Pt had not picked up her Oct prescription here at the [facility] and has a November prescription waiting for her here (dated 12/16/14). Returned call to patient at the number she left on message ([phone]) however outgoing message on phone states voice mail not set up. documented in this encounter Plan of Treatment Upcoming Encounters Date Type Department Care Team (Late st Contact Info) Description 06/08/2024 13:30 EDT Office Visit [facility] [address] [facility] 201 [place] [address] Michelle Shannon MD [address] [place] [phone] documented as of this encounter Visit Diagnoses Not on filedocumented in this encounter Care Teams Medical Imaging Technician Relationship Specialty Start Date End Date Michelle Shannon MD [address] [place] [phone] PCP - General 09/08/11 documented as of this encounter
--- OUTSIDE RECORDS SUMMARY | 2024-04-28 15:58 | XMS_ITS | Encounter Summary ---
Author Organization [facility] Address [address] [place] [address] Care Team Providers Care Box Blank Machine Operator Helper Name Role Phone Michelle Shannon MD Primary Care Provider + Reason for Visit * Reason Onset Date Comments Medications Refill 02/03/2015 Encounter Details Date Type Department Care Team (Late st Contact Info) Description 02/03/2015 Telephone [facility] [place] [facility] Sleep Program - [address] [phone] [place] [address] Medications Refill Social History Tobacco Use Types [...] Daily Max: 2 Caps 60 Cap 0 02/03/2015 03/10/2015 documented in this encounter Miscellaneous Notes * Telephone Encounter - Andi Sharmatangela Fam - 02/03/2015 1133 EDT Calling to request a refill of Adderall to be picked up Tuesday around 11am. documented in this encounter Plan of Treatment Upcoming Encounters Date Type Department Care Team (Late st Contact Info) Description 06/08/2024 13:30 EDT Office Visit [facility] [address] [place], [place] [phone] Michelle Shannon MD [address] [place] [phone] documented as of this encounter Visit Diagnoses Not on filedocumented in this encounter Discontinued Medications Medication Sig Discontinue Reason Start Date End Da te dextroamphetamine-ampheta mine (ADDERALL XR) 20 mg XR capsule Take 1 Cap by mouth 2 times daily Daily Max: 2 Caps Reorder 12/16/2014 02/03/2015 documented as of this encounter Care Teams Box Blank Machine Operator Helper Relationship Specialty Start Date End Date Michelle Shannon MD [address] [place] [phone] PCP - General 09/08/11 documented as of this encounter
--- OUTSIDE RECORDS SUMMARY | 2024-04-28 15:58 | XMS_ITS | Encounter Summary ---
Author Organization [facility] Address [address] [place] [address] Care Team Providers Care Service Desk Technician Name Role Phone Michelle Shannon MD Primary Care Provider + Reason for Visit * Reason Onset Date Comments Follow-up 09/05/2014 Encounter Details Date Type Department Care Team (Late st Contact Info) Description 09/05/2014 Telephone [facility] 1 [place], [place] [phone] Milla Orozco [facility] 1 [facility], Level [address] [place] [address] Follow-up Social History Tobacco Use Types Packs/Day [...] Info) Description 06/08/2024 13:30 EDT Office Visit [facility] [address] [place] [address] Michelle Shannon MD [address] [place] [phone] documented as of this encounter Visit Diagnoses Not on filedocumented in this encounter Care Teams Service Desk Technician Relationship Specialty Start Date End Date Michelle Shannon MD [address] [place] [phone] PCP - General 09/08/11 documented as of this encounter
--- OUTSIDE RECORDS SUMMARY | 2024-04-28 15:58 | XMS_ITS | Encounter Summary ---
Author Organization [facility] Address [address] [place] [address] Care Team Providers Care Inorganic Chemist Name Role Phone Michelle Shannon MD Primary Care Provider + Reason for Visit * Reason Onset Date Comments Medication Management 09/10/2014 Encounter Details Date Type Department Care Team (Late st Contact Info) Description 09/10/2014 Telephone [facility] Sleep Program - [address] [place], [place] [phone] Juliana Díaz RN [address] [place] [address] Medication Management Social History Tobacco Use Types [...] Telephone Encounter - Juliana Díaz RN - 09/10/2014 1006 EST Left message asking patient to call me at the Sleep Center (Need refill before holiday?). documented in this encounter Plan of Treatment Upcoming Encounters Date Type Department Care Team (Late st Contact Info) Description 06/08/2024 13:30 EDT Office Visit [facility] [address] [place] [address] Michelle Shannon MD [address] [place] [phone] documented as of this encounter Visit Diagnoses Not on filedocumented in this encounter Care Teams Inorganic Chemist Relationship Specialty Start Date End Date Michelle Shannon MD [address] [place] [phone] PCP - General 09/08/11 documented as of this encounter
--- OUTSIDE RECORDS SUMMARY | 2024-04-28 15:58 | XMS_ITS | Encounter Summary ---
Author Organization [facility] Address [address] [place] [address] Care Team Providers Care Olive Pitter Name Role Phone Michelle Shannon MD Primary Care Provider + Encounter Details Date Type Department Care Team (Late st Contact Info) Description 08/28/2014 Documentation Visit [facility] 1 [place], [place] [address] Milla Orozco [facility] 1 [facility], Level [address] [place] [address] Social History Tobacco Use Types [...] Info) Description 06/08/2024 13:30 EDT Office Visit [facility] 550 [facility] [address] [place], [place] [phone] Michelle Shannon MD [address] [place] [phone] documented as of this encounter Visit Diagnoses Not on filedocumented in this encounter Care Teams Olive Pitter Relationship Specialty Start Date End Date Michelle Shannon MD [address] [place] [phone] PCP - General 09/08/11 documented as of this encounter
--- OUTSIDE RECORDS SUMMARY | 2024-04-28 15:58 | XMS_ITS | Encounter Summary ---
Author Organization [facility] Address [address] [place] [address] Care Team Providers Care Commissioning Engineer Name Role Phone Michelle Shannon MD Primary Care Provider + Reason for Visit * Reason Onset Date Comments Medications Refill 10/18/2014 Encounter Details Date Type Department Care Team (Late st Contact Info) Description 10/18/2014 Telephone [facility] Sleep Program - [address] [phone] [place] [address] Medications Refill Social History Tobacco Use Types [...] 1 Cap by mouth 2 times daily. 60 Cap 0 10/18/2014 11/12/2014 documented in this encounter Miscellaneous Notes * Telephone Encounter - Juliana Díaz RN - 10/18/2014 0984 EST Left message for pt to let know (adderall) prescription ready for pick up operator at the Sleep Center. * Telephone Encounter - Geo Sharma - 10/18/2014 0905 EST Calling to request a refill of Adderall to be picked up. Please call when ready. documented in this encounter Plan of Treatment Upcoming Encounters Date Type Department Care Team (Late st Contact Info) Description 06/08/2024 13:30 EDT Office Visit [facility] [address] [place], [place] [phone] Michelle Shannon MD [address] [place] [phone] documented as of this encounter Visit Diagnoses Not on filedocumented in this encounter Discontinued Medications Medication Sig Discontinue Reason Start Date End Da te dextroamphetamine-amphe tamine (ADDERALL XR) 20 mg XR capsule Take 1 Cap by mouth 2 times daily. Earliest Fill Date: 08/23/14 Reorder 08/23/2014 10/18/2014 documented as of this encounter Care Teams Commissioning Engineer Relationship Specialty Start Date End Date Michelle Shannon MD [address] [place] [phone] PCP - General 09/08/11 documented as of this encounter
--- OUTSIDE RECORDS SUMMARY | 2024-04-28 15:58 | XMS_ITS | Encounter Summary ---
Author Organization [facility] Address [address] [place] [address] Care Team Providers Care Ammunition Assembly Laborer Name Role Phone Michelle Shannon MD Primary Care Provider + Reason for Visit * Reason Onset Date Comments Other 05/21/2015 Encounter Details Date Type Department Care Team (Late st Contact Info) Description 05/21/2015 Telephone [facility] Sleep Program - [address] [phone] [place] [address] Other Social History Tobacco Use Types Packs/Day [...] mouth 2 times daily Earliest Fill Date: 05/22/15 Daily Max: 2 Caps 60 Cap 0 05/22/2015 06/25/2015 documented in this encounter Miscellaneous Notes * Telephone Encounter - Juliana Díaz RN - 05/22/2015 0922 EDT Spoke with patient and let her know her (adderall XR) prescription ready for cloth picker at the Sleep Center. * Telephone Encounter - Kerry Olivera - 05/21/2015 1013 EDT Needs refill on Adderall XR 20mg 2x per day. Patient will cloth picker, please call when ready [phone]. documented in this encounter Plan of Treatment Upcoming Encounters Date Type Department Care Team (Late st Contact Info) Description 06/08/2024 13:30 EDT Office Visit [facility] 550 [facility] [address] [place] [address] Michelle Shannon MD [address] [place] [phone] documented as of this encounter Visit Diagnoses Not on filedocumented in this encounter Discontinued Medications Medication Sig Discontinue Reason Start Date End Da te dextroamphetamine-ampheta mine (ADDERALL XR) 20 mg XR capsule Take 1 Cap by mouth 2 times daily Daily Max: 2 Caps Reorder 04/23/2015 05/21/2015 documented as of this encounter Care Teams Ammunition Assembly Laborer Relationship Specialty Start Date End Date Michelle Shannon MD [address] [place] [phone] PCP - General 09/08/11 documented as of this encounter
--- OUTSIDE RECORDS SUMMARY | 2024-04-28 15:58 | XMS_ITS | Encounter Summary ---
Author Organization [facility] Address [address] [place] [address] Care Team Providers Care Sales Promotion Representative Name Role Phone Michelle Shannon MD Primary Care Provider + Encounter Details Date Type Department Care Team (Late st Contact Info) Description 02/04/2015 Results Only [facility] [phone] Nhung Warner NP Social History Tobacco Use Types Packs/Day Years [...] Info) Description 06/08/2024 13:30 EDT Office Visit [facility] [address] [place] [address] Michelle Shannon MD [address] [place] [phone] documented as of this encounter Procedures Procedure Name Priority Date/Time Associated Diagnosis Comments SYPHILIS SEROLOGY Routine 02/04/2015 11: 23 EDT HEPATITIS C AB W REFLEX TO HCV RNA BY PCR Routine 02/04/2015 11:23 EDT HEPATITIS B SURFACE ANTIGEN Routine 02/04/2015 11:23 EDT HIV 1/2 ANTIGEN AND ANTIBODY, 4TH GENERATION Routine 02/04/2015 11:23 EDT documented in this encounter Results * SYPHILIS SEROLOGY (02/04/2015 11:23 EDT) Syphilis Serology Interpretation: Nonreactive 02/05/2015 12:39 EDT [facility] Comment:Reference Range: Non reactive BLOOD SPECIMEN / Unknown 02/04/2015 11:23 EDT 02/04/2015 19:04 EDT Nhung Warner NP IMMUNOLOGY AND SEROL OGY ORDERABLES Performing Organization Address City/[facility] Co de Phone Number [facility] [address] [place] [address] * HIV 1/2 ANTIBODY (02/04/2015 11:23 EDT) HIV 1/2 Antibody Negative 02/06/20 11:30 EDT [facility] Comment: If acute HIV-1 infection is suspected in a high risk patient, submit plasma specimen for HIV-1 RNA quantification test. Reference Range: ??Negative Assayed utilizing [employer] chemiluminescent technology. BLOOD SPECIMEN / Unknown 02/04/2015 11:23 EDT 02/04/2015 19:04 EDT Nhung Warner NP IMMUNOLOGY AND SEROL OGY ORDERABLES [facility] [address] [place] [address] * HEPATITIS C ANTIBODY (02/04/2015 11:23 EDT) Hepatitis C Ab Negative 02/05/2015 11:30 EDT [facility] Comment:Reference Range: Neg ative BLOOD SPECIMEN / Unknown 02/04/2015 11:23 EDT 02/04/2015 19:04 EDT Nhung Warner LEASE OPERATOR CHEMISTRY & BLOOD GA S ORDERABLES Performing Organization Address City/[facility]/ZIP Co de Phone Number [facility] [address] [place] [address] * HEPATITIS B SURFACE ANTIGEN (02/04/2015 11:23 EDT) Hepatitis B Surface Ag Negative 02/05/2015 11:30 EDT [facility] Comment:Reference Range: Neg ative BLOOD SPECIMEN / Unknown 02/04/2015 11:23 EDT 02/04/2015 19:04 EDT Nhung Warner LEASE OPERATOR CHEMISTRY & BLOOD GA S ORDERABLES Performing Organization Address [facility] Co de Phone Number [facility] [address] [place] [address] documented in this encounter Visit Diagnoses Not on filedocumented in this encounter Care Teams Sales Promotion Representative Relationship Specialty Start Date End Date Michelle Shannon MD [address] [place] [phone] PCP - General 09/08/11 documented as of this encounter
--- OUTSIDE RECORDS SUMMARY | 2024-04-28 15:58 | XMS_ITS | Encounter Summary ---
Author Organization [facility] Address [address] [place] [address] Care Team Providers Care Hull And Deck Remover Name Role Phone Michelle Shannon MD Primary Care Provider + Reason for Visit * Reason Onset Date Comments Other 01/07/2015 Encounter Details Date Type Department Care Team (Late st Contact Info) Description 01/07/2015 Telephone [facility] Sleep Program - [address] [phone] Juliana Díaz RN [address] [place] [address] Other Social History Tobacco Use Types Packs/Day [...] Telephone Encounter - Juliana Díaz RN - 01/07/2015 8378 EDT Called pt, no answer, unable to leave message. Called Joe in [facility] [place] last filled on 12/23/14. documented in this encounter Plan of Treatment Upcoming Encounters Date Type Department Care Team (Late st Contact Info) Description 06/08/2024 13:30 EDT Office Visit [facility] [address] [place] [address] Michelle Shannon MD [address] [place] [phone] documented as of this encounter Visit Diagnoses Not on filedocumented in this encounter Care Teams Hull And Deck Remover Relationship Specialty Start Date End Date Michelle Shannon MD [address] [place] [phone] PCP - General 09/08/11 documented as of this encounter
--- OUTSIDE RECORDS SUMMARY | 2024-04-28 15:58 | XMS_ITS | Encounter Summary ---
Author Organization [facility] Address [address] [place] [address] Care Team Providers Care Technical Director Name Role Phone Michelle Shannon MD Primary Care Provider + Reason for Visit * Reason Onset Date Comments Follow-up 09/09/2014 Encounter Details Date Type Department Care Team (Late st Contact Info) Description 09/09/2014 Telephone [facility] 1 [place], [place] [address] Milla Orozco [facility] 1 [facility], Level [address] [place] [address] Follow-up Social History Tobacco Use [...] Info) Description 06/08/2024 13:30 EDT Office Visit [facility] [address] [place] [address] Michelle Shannon MD [address] [place] [phone] documented as of this encounter Visit Diagnoses Not on filedocumented in this encounter Care Teams Technical Director Relationship Specialty Start Date End Date Michelle Shannon MD [address] [place] [phone] PCP - General 09/08/11 documented as of this encounter
--- OUTSIDE RECORDS SUMMARY | 2024-04-28 15:58 | XMS_ITS | Encounter Summary ---
Author Organization [facility] Address [address] [place] [address] Care Team Providers Care Sales Expert Home Theater Name Role Phone Michelle Shannon MD Primary Care Provider + Encounter Details Date Type Department Care Team (Late st Contact Info) Description 08/26/2014 Documentation Visit [facility] 1 [place], [place] [address] Milla Orozco [facility] 1 [facility], Level [address] [place] [address] Social History Tobacco Use Types [...] Info) Description 06/08/2024 13:30 EDT Office Visit [facility] 550 [facility] [address] [place], [place] [phone] Michelle Shannon MD [address] [place] [phone] documented as of this encounter Visit Diagnoses Not on filedocumented in this encounter Care Teams Sales Expert Home Theater Relationship Specialty Start Date End Date Michelle Shannon MD [address] [place] [phone] PCP - General 09/08/11 documented as of this encounter
--- OUTSIDE RECORDS SUMMARY | 2024-04-28 15:58 | XMS_ITS | Encounter Summary ---
Author Organization [facility] Address [address] [place] [address] Care Team Providers Care Inspector Rough Castings Name Role Phone Michelle Shannon MD Primary Care Provider + Reason for Visit * Reason Onset Date Comments Follow-up 09/05/2014 Encounter Details Date Type Department Care Team (Late st Contact Info) Description 09/05/2014 Telephone [facility] 1 [place], [place] [address] Milla Orozco [facility] 1 [facility], Level [address] [place] [address] Follow-up Social History Tobacco Use [...] Info) Description 06/08/2024 13:30 EDT Office Visit [facility] [address] [place] [address] Michelle Shannon MD [address] [place] [phone] documented as of this encounter Visit Diagnoses Not on filedocumented in this encounter Care Teams Inspector Rough Castings Relationship Specialty Start Date End Date Michelle Shannon MD [address] [place] [phone] PCP - General 09/08/11 documented as of this encounter
--- OUTSIDE RECORDS SUMMARY | 2024-04-28 15:58 | XMS_ITS | Encounter Summary ---
Author Organization [facility] Address [address] [place] [address] Care Team Providers Care Brass Pickler Name Role Phone Michelle Shannon MD Primary Care Provider + Reason for Visit * Reason Comments Depression Anxiety Encounter Details Date Type Department Care Team (Late st Contact Info) Description 08/14/2014 9:00 EST Office Visit [facility] 1 [place] [address] Romeo Ramesh [facility] [address] [place] [phone] MDD (major depressive disorder), recurrent episode, moderate (CMS-HCC) (Primary Dx) Social History Tobacco Use Types [...] Info) Description 06/08/2024 13:30 EDT Office Visit [facility] [address] [place], [place] [phone] Michelle Shannon MD [address] [place] [phone] documented as of this encounter Procedures Procedure Name Priority Date/Time Associated Diagnosis Comments OUTPATIENT ADD-ON Routine 08/13/2014 8:09 EST MDD (major depressive disorder), recurrent episode, moderate (CMS-HCC) documented in this encounter Results * OUTPATIENT ADD-ON (08/13/2014 8:09 EST) Tests to be added VITAMIN D 08/14/2014 13:39 EST [facility] Diagnosis Code SEE PRISM DOS [id number] 08/14/2014 13:44 [facility] Number for problems [id number] 08/14/2014 13:39 [facility] Comment:1449 Accession number [id number] 08/14/2014 13:44 [facility] Acknowledge ABP Done 16:08 EST [facility] BLOOD SPECIMEN / Unknown 08/13/2014 8:09 EST 08/14/2014 13:44 EST Romeo Ramesh HEMATOLOGY & PF4 ORD ERABLES [facility] [address] [place] [address] documented in this encounter Visit Diagnoses Diagnosis MDD (major depressive disorder), recurrent episode, moderate (HCC-CMS)- Primary Major depressive disorder, recurrent episode, moderate documented in this encounter Discontinued Medications Medication Sig Discontinue Reason Start Date End Da te cloNIDine HCl (CATAPRES) 0.1 mg tablet Take 1 Tab by mouth 2 times daily. 07/31/2014 08/14/2014 documented as of this encounter Care Teams Brass Pickler Relationship Specialty Start Date End Date Michelle Shannon MD [address] [place] [phone] PCP - General 09/08/11 documented as of this encounter
--- OUTSIDE RECORDS SUMMARY | 2024-04-28 15:58 | XMS_ITS | Encounter Summary ---
Author Organization [facility] Address [address] [place] [address] Care Team Providers Care Financial Analyst Name Role Phone Michelle Shannon MD Primary Care Provider + Encounter Details Date Type Department Care Team (Late st Contact Info) Description 08/30/2014 10:14 EST - 09/03/2014 23:59 [facility] Hospital Encounter [address] [phone] Discharge Disposition: Home or Self Care Social [...] as of this encounter Discharge Diagnoses Diagnosis 296.53 BIPOL 1 DISORDER, MOST RECENT EPISODE DEPRESSED, SEVERE, W/O PSYCHOTIC BEHAVIOR[ICD-9-CM] documented in this encounter Medications at Time of Discharge Medication Sig Dispensed Refills Start Date End Date xhdalia-nebhnbxfzgkng-y affeine (EXCEDRIN MIGRAINE) 250-250-65 mg per tabletIndications:migra [...] at bedtime 30 Tab 5 01/05/2014 10/01/2014 dextroamphetamine-amphe tamine (ADDERALL XR) 20 mg XR capsule Take 1 Cap by mouth 2 times daily. Earliest Fill Date: 08/23/14 60 Cap 0 08/23/2014 10/18/2014 dextroamphetamine-amphe tamine (ADDERALL) 10 mg tablet Take 10 mg by mouth daily Take at 1530 as needed for narcoplepsy . 12/16/2014 duloxetine (CYMBALTA) 30 mg capsule Take 60 mg by mouth daily. 06/19/2010 09/16/2017 IBUPROFEN (ADVIL ORAL) Take by mouth daily as needed. 05/19/2023 LEVONORGESTREL-ETH ESTRA (KATHY ORAL) Take by mouth daily. 09/10/2010 06/17/2017 Melatonin 3 mg Tab TAKE 1 TABLET BY MOUTH AT BEDTIME 30 Tab 6 05/26/2012 06/17/2017 naratriptan (AMERGE) 2.5 mg tabletIndications:migra ine Take as directed. Indications: MIGRAINE 12 Tab 11 03/24/2012 02/06/2021 topiramate (TOPAMAX) 50 mg tabletIndications:Migra ine with aura, without mention of intractable migraine without mention of status migrainosus Take 1 Tab by mouth 2 times daily. 180 Tab 3 03/24/2012 08/30/2017 documented as of this encounter Discharge Disposition Disposition Code Departure Means Destination Home or Self Long-Term documented in this encounter Plan of Treatment Upcoming Encounters Date Type Department Care Team (Late st Contact Info) Description 06/08/2024 13:30 EDT Office Visit [facility] [address] [place] [address] Michelle Shannon MD [address] [place] [phone] documented as of this encounter Visit Diagnoses Not on filedocumented in this encounter Care Teams Financial Analyst Relationship Specialty Start Date End Date Michelle Shannon MD [address] [place] [phone] PCP - General 09/08/11 documented as of this encounter
--- OUTSIDE RECORDS SUMMARY | 2024-04-28 15:58 | XMS_ITS | Encounter Summary ---
Author Organization [facility] Address [address] [place] [address] Care Team Providers Care Leather Finisher Name Role Phone Michelle Shannon MD Primary Care Provider + Reason for Visit * Reason Comments Sleep Problems * Referral (Routine) - Closed Specialty Diagnoses / Procedures Referred By Thelma long Referred To Contact Sleep Medicine Diagnoses REM sleep behavior disorder Narcolepsy Restless leg syndrome Michelle Shannon MD [address] [place] [address] Sydni Charles, PhD [address] [phone] Referral ID Status Reason Start Date Expiration Date Visits Re quested Visits Authorized [id number] Closed 1 1 Encounter Details Date Type Department Care Team (Late st Contact Info) Description 10/18/2016 12:00 EST Office Visit [facility] - [address] [place], [place] [id number] Sydni Charles, PhD [address] [place] [phone] Major depressive disorder, recurrent episode, moderate (HCC-CMS) (Primary Dx); Situational stress; Hypersomnia Discharge Disposition: Auto Discharge Social History Tobacco [...] as of this encounter Discharge Diagnoses Diagnosis F33.1 Major depressive disorder, recurrent, moderate-F33.1[ICD-10-CM] F43.9 Reaction to severe stress, unspecified-F43.9[ICD-10-CM] G47.10 Hypersomnia, unspecified-G47.10[ICD-10-CM] documented in this encounter Discharge Disposition Disposition Code Departure Means Destination Auto Discharge documented in this encounter Progress Notes * Sydni Charles, PhD - 10/18/2016 1200 EST Sleep Center Psychology Intake Assessment Referral Referred by Michelle Shannon MD to provide cognitive behavioral treatment for sleep disorder and assess psychological factors that may contribute to sleep disorder Presenting Concern Sleep onset latency. She reported having difficulty sleeping since ole high. Reported having a need for 12 hours of sleep at night. Sleep History Reviewed with patient and described in Sleep Psychology Intake (scanned media) She has been diagnosed with narcolepsy, and her current medication regimen is helpful in maintaining alertness. She takes adderol 10 xr at 10 am, 12 pm, and 2 pm. If needed, she may take one later inthe afternoon as well. She also has been diagnosed with REM Behavior Disorder and takes 1 mg klonopin nightly, which appears to effectively mange her symptoms. She also takes 10 mg melatonin. Reported needing 12 hours of sleep a night, and spending 14 hours in bed. The first four hours she tosses and turns, then after taking her medication at midnight, falls asleep. At times, she will take a 1-2 hour nap during the day, after which she still feels tired. Work and Social History Reviewed with patient and described in Sleep Psychology Intake (scanned media) She has received disability income since 2009 and is very stressed about finances. She lives with her mother, which can cause stress and discord at times. Her younger brother lives in [place] and she sees him on holidays. She has not had contact with her father since 2002 or 2003. Refer to medical chart for details about patient's family medical history. Family history relevant to sleep disorder is contained in this note and accompanying sleep intake questionnaire. She has no children and is not in a romantic relationship currently. Medical and Psychiatric History See chart for complete and most recent medical history. Reviewed with patient and described in Sleep Psychology Intake (scanned media). She stated that she receives disability income for the following conditions: Major Depressive Disorder, Bipolar Disorder with Radhika, Borderline Personality Disorder, post-traumatic stress disorder, severe anxiety, severe migraines, old stroke, narcolepsy, and REM Behavior Disorder. Her notes from [facility] in August 2014 listed mental health diagnoses of Major Depressive Disorder, moderate; ADHD by history, and on Newton II, cluster B traits. On a 10-point scale, patient reported sadness of 7 and anxiety/stress of 9. She has been diagnosed with Narcolepsy and REM Behavior Disorder at our sleep center and has been treated by Dr. Turner and Dr. Wilson. Alcohol and Drug use: Reviewed with patient and described in Psychology Intake (scanned media) Denied a history of drug or alcohol abuse. No nicotine use. 1 alcohol drink a week. 1 caffeine drink a day. Mental Status Exam Age: 41 y.o. Sex: female Race/Ethnicity: Non- or or Mohawk Origin [1] Height: average Weight: above average slightly Appearance: older than stated age Grooming: good, slightly unkempt wearing sweatshirt with multiple rips in the sleeves. Behavioral observations: walked without assistance Eye contact: appropriate for culture Interactions: pleasant and cooperative. Arrived late due to traffic, and apologized for her delay. Speech: average pace and volume and pauses in speech isaias at times, possibly when anxious or when processing information. Thought process: disjointed and difficult to follow her responses to some questions. Orientation: person, time, place and purpose Mood: anxious Affect: congruent Suicidal/homicidal ideation: no evidence or denied currently Audio/Visual Hallucinations: no evidence or denied Others present during session: no Session length: 45 minutes. Informed Consent. Patient signed informed consent stating that providers within the [facility] system, including his primary care physician, would have access to medical record, including notes from our sessions. See Sleep Psychology Intake (scanned media). Sleep Questionnaire Sleep Habits, Beliefs/Attitudes, and Lifestyle: Reviewed with patient and described in Psychology Intake (scanned media) Insomnia Symptom Questionnaire This 11-item scale provides a self-reported level of a variety of insomnia symptoms, with scores ranging from 0 to 44. The patient scored 17. Fatigue Severity Scale This 9-item scale provides a self-reported level of fatigue symptoms, with the scores ranging from 9 to 63. The patient scored 60. [place] Sleepiness Scale This 8-item scale provides a self-reported level of daytime drowsiness and sleepiness in various conditions. The score could range from 0-24, with 10 and below considered within normal limits. The patient scored 15. TEST INTERPRETATION and/or CLINICAL IMPRESSIONS: Clinical interview and questionnaires are consistent and indicate patient is experiencing a form of sleep disturbance in the context of narcolepsy andREM Behavior Disorder. Given her sleep patterns and the overlay of two physiological sleep disorders treated with medication, it is a more complex scenario. We can address her sleep difficulties froma Cognitive-Behavioral Treatment perspective, although I am uncertain about the efficacy of treatment given other medical and psychiatric conditions. She appeared to be getting enough sleep, and may be spending too much time in bed sleeping (and trying to sleep). Some basic education and recommendations may help to regulate her sleep and improve her perceptions of her ability to sleep. Diagnoses Newton I: ICD-10-CM ICD-9-CM 1. Major depressive disorder, recurrent episode, moderate F33.1 296.32 2. Situational stress F43.9 V62.89 3. Hypersomnia G47.10 780.54 Treatment recommendations Patient may benefit from individual, short-term cognitive-behavioral treatment focusing on a combination of sleep hygiene strategies, stimulus control, sleep restriction, and cognitive restructuring. Leave bedroom when awake longer than 30 minutes and return when drowsy, though spend at least 6 hours in bed resting, as that is also beneficial and restorative. [place] bedroom only for sleep, relaxation, and intimacy. Avoid using electronics at least one hour pre-bedtime and throughout the sleep window. Given the long amount of time she spends in bed, I recommended decreasing that time by 4 hours so that her schedule becomes: 12 - 10 am. Recommended napping for brief periods (10-20 minutes) as needed to help manage narcolepsy, and avoiding long naps. Continue with treatment at the Sleep Center to manage narcolepsy and REM Behavior Disorder. Ask about Restless Legs Syndrome symptoms at next appointment. She would benefit from psychiatric consultation and longer term psychotherapy to manage and treat symptoms of depression and anxiety. Treatment plan Patient agreed with above recommendation(s). We will proceed with 3-6 individual follow-up appointments lasting 40-55 minutes each, at one- to three-week intervals for the first few sessions with plans to begin as soon as possible. Session frequency will be re-assessed as treatment progresses. Next time, we can discuss the role of melatonin and I will recommend some changes. She stated that she will begin seeing a psychotherapist for the first time next week and is eager to begin treatment. Provided contact information for potential psychiatric consultation, encouraging patient to contactone for an appointment. Thank you for your referral. Please contact me if I can be of further assistance. Sydni Charles, PhD documented in this encounter Plan of Treatment Upcoming Encounters Date Type Department Care Team (Late st Contact Info) Description 06/08/2024 13:30 EDT Office Visit [facility] [address] [place] [address] Michelle Shannon MD [address] [place] [phone] documented as of this encounter Visit Diagnoses Diagnosis Major depressive disorder, recurrent episode, moderate ([facility])- Primary Major depressive disorder, recurrent episode, moderate Situational stress Other psychological or physical stress, not elsewhere classified Hypersomnia Hypersomnia, unspecified documented in this encounter Care Teams Leather Finisher Relationship Specialty Start Date End Date Michelle Shannon MD [address] [place] [phone] PCP - General 09/08/11 documented as of this encounter
--- OUTSIDE RECORDS SUMMARY | 2024-04-28 15:58 | XMS_ITS | Encounter Summary ---
Author Organization [facility] Address [address] [place] [address] Care Team Providers Care Enroute Controller Name Role Phone Michelle Shannon MD Primary Care Provider + Reason for Visit * Reason Comments Sleep Problems Encounter Details Date Type Department Care Team (Late st Contact Info) Description 11/01/2016 11:00 EST Office Visit [facility] Sleep Program - [address] [address] Sydni Charles, PhD [address] [place] [address] [place] [phone] Major depressive disorder, recurrent episode, moderate [...] Progress Notes * Sydni Charles, PhD - 11/01/2016 1100 EST Sleep Center Psychology Follow Up SUBJECTIVE: Reported being less sleepy in the morning since last session. Stated she has maintained a more consistent sleep-wake schedule: 12-9:30. Stated she has been taking melatonin, 10 mg, for her RBD (in addition to benzodiazepine) per Dr. Turner's recommendation. Acknowledged that the melatonin might be causing her to feel more sleepy in the morning. Wants to stop taking abilify for depression and doesn't want to take more benzodiazepine. Still is concerned that medication she takes is the only reason she's able to sleep. Eager to start working with her primary psychotherapist. OBJECTIVE: Arrived: promptly Session length: 55 minutes. Sleep Patterns: Changes in Sleep Routine: more consistent lights out time. Sleep Log: completed and instructed patient how to complete Insights from log: na Medical / Physical Complaints: some decrease in sleepiness. Medication Changes: None reported. Education: Topics: sleep log/role of feedback and alert force/sleep drive and role of melatonin Methods: demonstration and verbal Taught to: patient Barriers: none Outcomes: verbalized understanding and needs practice ASSESSMENT: Diagnostic Impression: 1. Major depressive disorder, recurrent episode, moderate 2. Situational stress 3. Hypersomnia Progress: Patient reported sleep has improved Treatment Process: fully engaged Obstacles to treatment:emphasis on medication Rationale for frequency and duration of therapy: cognitive / behavioral patterns continue to impairsleep and additional patient education required Recommendations: Complete Sleep Log daily to assist in identifying patterns and increasing awareness. Avoid long naps, and take periodic 20-40 minute naps prior to 4 pm as needed to help manage symptoms of narcolepsy. Consider experimenting with less melatonin, given its role in regulating circadian rhythm. Consult with prescribing MD to determine how significant of a role melatonin plays in treating her REM Behavior Disorder. Work with primary therapist and prescribing MD to manage depression and anxiety symptoms, and determine at what point it makes sense to decrease anti-depressant medication. PLAN: continue treatment, follow up in approximately 2-3 weeks documented in this encounter Plan of Treatment Upcoming Encounters Date Type Department Care Team (Late st Contact Info) Description 06/08/2024 13:30 EDT Office Visit [facility] [address] [place] [address] Michelle Shannon MD [address] [place] [phone] documented as of this encounter Visit Diagnoses Diagnosis Major depressive disorder, recurrent episode, moderate ([facility])- Primary Major depressive disorder, recurrent episode, moderate Situational stress Other psychological or physical stress, not elsewhere classified Hypersomnia Hypersomnia, unspecified documented in this encounter Care Teams Enroute Controller Relationship Specialty Start Date End Date Michelle Shannon MD [address] [place] [phone] PCP - General 09/08/11 documented as of this encounter
--- OUTSIDE RECORDS SUMMARY | 2024-04-28 15:58 | XMS_ITS | Encounter Summary ---
Author Organization [facility] Address [address] [place] [address] Care Team Providers Care Deburrer Strip Name Role Phone Michelle Shannon MD Primary Care Provider + Reason for Visit * Reason Onset Date Comments Follow-up 08/26/2014 Encounter Details Date Type Department Care Team (Late st Contact Info) Description 08/26/2014 Telephone [facility] 1 [place], [place] [address] Milla Orozco [facility] 1 [facility], [address] [place] [phone] Follow-up Social History Tobacco Use [...] Description 06/08/2024 13:30 EDT Office Visit [facility] [address] [place] [address] Michelle Shannon MD [address] [place] [phone] documented as of this encounter Visit Diagnoses Not on filedocumented in this encounter Care Teams Deburrer Strip Relationship Specialty Start Date End Date Michelle Shannon MD [address] [place] [phone] PCP - General 09/08/11 documented as of this encounter
--- OUTSIDE RECORDS SUMMARY | 2024-04-28 15:58 | XMS_ITS | Encounter Summary ---
Author Organization [facility] Address [address] [place] [address] Care Team Providers Care Point Of Sale Associate Name Role Phone Michelle Shannon MD Primary Care Provider + Encounter Details Date Type Department Care Team (Late st Contact Info) Description 07/29/2014 10:54 EST - 08/20/2014 23:59 EST Hospital Encounter [address] [phone] Discharge Disposition: Home-Health Care Svc Social History Tobacco Use Types Packs/Day Years [...] Sig Dispensed Refills Start Date End Date eoibcxb-fylgnicpbnros-dm ffeine (EXCEDRIN MIGRAINE) 250-250-65 mg per tabletIndications:migrai [...] at bedtime 30 Tab 5 01/05/2014 10/01/2014 dextroamphetamine-amphet amine (ADDERALL XR) 20 mg XR [...] Discharge Disposition Disposition Code Departure Means Destination Home-Health Care [facility] documented in this encounter Plan of Treatment Upcoming Encounters Date Type Department Care Team (Late st Contact Info) Description 06/08/2024 13:30 EDT Office Visit [facility] [address] [place] [address] Michelle Shannon MD [address] [place] [phone] documented as of this encounter Visit Diagnoses Not on filedocumented in this encounter Care Teams Point Of Sale Associate Relationship Specialty Start Date End Date Michelle Shannon MD [address] [place] [phone] PCP - General 09/08/11 documented as of this encounter
--- OUTSIDE RECORDS SUMMARY | 2024-04-28 15:58 | XMS_ITS | Encounter Summary ---
Author Organization [facility] Address [address] [place] [address] Care Team Providers Care Interactive Media Marketing Director Name Role Phone Michelle Shannon MD Primary Care Provider + Encounter Details Date Type Department Care Team (Latest Contact Info) Description 02/04/2015 21:03 EDT - 02/04/2015 21:04 EDT Hospital Encounter [address] [address] Nhung Warner NP Discharge Disposition: Home or Self Care Social [...] as of this encounter Discharge Diagnoses Diagnosis V01.6 VENEREAL DIS CONTACT[ICD-9-CM] V73.89 SCREEN VIRAL DISEASE NEC[ICD-9-CM] documented in this encounter Medications at Time of Discharge Medication Sig Dispensed Refills Start Date End Date vtwpooi-uhsvypixfathb-vq ffeine (EXCEDRIN MIGRAINE) 250-250-65 mg per tabletIndications:migrai [...] tablet take 1 tablet by mouth at bedtime. 30 Tab 5 10/01/2014 04/07/2015 dextroamphetamine-amphet amine (ADDERALL XR) 20 mg XR capsule Take 1 Cap by mouth 2 times daily Daily Max: 2 Caps 60 Cap 0 02/03/2015 03/10/2015 duloxetine (CYMBALTA) 30 mg capsule Take 60 [...] Visit [facility] [address] [facility] [address] [place] [address] Michelle Shannon MD [address] [place] [phone] documented as of this encounter Visit Diagnoses Not on filedocumented in this encounter Care Teams Interactive Media Marketing Director Relationship Specialty Start Date End Date Michelle Shannon MD [address] [place] [phone] PCP - General 09/08/11 documented as of this encounter
--- OUTSIDE RECORDS SUMMARY | 2024-04-28 15:58 | XMS_ITS | Encounter Summary ---
Author Organization [facility] Address [address] [place] [address] Care Team Providers Care Ornamental Ironworking Supervisor Name Role Phone Michelle Shannon MD Primary Care Provider + Reason for Visit * Reason Onset Date Comments Other 08/30/2014 Encounter Details Date Type Department Care Team (Late st Contact Info) Description 08/30/2014 Telephone [facility] - [address] [phone] Juliana Díaz RN [address] [place] [address] Other Social History Tobacco Use Types Packs/Day [...] Telephone Encounter - Juliana Díaz RN - 08/30/2014 1253 EST Pt stopped by clinic. Does not appear to be in any distress. Let her know was made aware of her c/o falling OOB and hitting head,headaches. He suggested she keep track of her RBD symptomsand call if increasing. Last seen last month, symptoms were stable. Also he suggested she put her mattress on the floor and remove and sharp objects from the bed area so if she falls OOB again she will not hurt herself. If her headaches continues she should contact her rubber belt splicer. Pt verbalized understanding. * Telephone Encounter - Juliana Díaz RN - 08/30/2014 0848 EST Pt stopped by the clinic and left message with Natalee stating she had 'an episode of REM, fell out of bed and had a questionable concussion with headaches for 3 days.' She did not seek out emergency care. Pt here at the [facility] program at this time. made aware. documented in this encounter Plan of Treatment Upcoming Encounters Date Type Department Care Team (Late st Contact Info) Description 06/08/2024 13:30 EDT Office Visit [facility] [address] [facility] [address] [place], [place] [phone] Michelle Shannon MD [address] [place] [phone] documented as of this encounter Visit Diagnoses Not on filedocumented in this encounter Care Teams Ornamental Ironworking Supervisor Relationship Specialty Start Date End Date Michelle Shannon MD [address] [place] [phone] PCP - General 09/08/11 documented as of this encounter
--- OUTSIDE RECORDS SUMMARY | 2024-04-28 15:58 | XMS_ITS | Encounter Summary ---
Author Organization [facility] Address [address] [place] [address] Care Team Providers Care Sample Collector Name Role Phone Michelle Shannon MD Primary Care Provider + Encounter Details Date Type Department Care Team (Late st Contact Info) Description 09/10/2014 Documentation Visit [facility] 1 [place], [place] [address] Milla Orozco [facility] 1 [facility], [address] [place] [phone] Social History Tobacco Use Types [...] Info) Description 06/08/2024 13:30 EDT Office Visit [facility] [address] [facility] [address] [place], [place] [phone] Michelle Shannon MD [address] [place] [phone] documented as of this encounter Visit Diagnoses Not on filedocumented in this encounter Care Teams Sample Collector Relationship Specialty Start Date End Date Michelle Shannon MD [address] [place] [phone] PCP - General 09/08/11 documented as of this encounter
--- OUTSIDE RECORDS SUMMARY | 2024-04-28 15:58 | XMS_ITS | Encounter Summary ---
Author Organization [facility] Address [address] [place] [address] Care Team Providers Care Ironworker Helper Shop Name Role Phone Michelle Shannon MD Primary Care Provider + Reason for Visit * Reason Onset Date Comments Follow-up 08/29/2014 Encounter Details Date Type Department Care Team (Late st Contact Info) Description 08/29/[address] [facility] 1 [place], [place] [address] Milla Orozco [facility] 1 [facility], [address] [place] [phone] Follow-up Social History Tobacco Use [...] Info) Description 06/08/2024 13:30 EDT Office Visit [facility] [address] [place] [address] Michelle Shannon MD [address] [place] [phone] documented as of this encounter Visit Diagnoses Not on filedocumented in this encounter Care Teams Ironworker Helper Shop Relationship Specialty Start Date End Date Michelle Shannon MD [address] [place] [phone] PCP - General 09/08/11 documented as of this encounter
--- OUTSIDE RECORDS SUMMARY | 2024-04-28 15:58 | XMS_ITS | Encounter Summary ---
Author Organization [facility] Address [address] [place] [address] Care Team Providers Care Director Revenue Name Role Phone Michelle Shannon MD Primary Care Provider + Reason for Visit * Reason Onset Date Comments Follow-up 08/16/2014 Encounter Details Date Type Department Care Team (Late st Contact Info) Description 08/16/2014 Telephone [facility] 1 [place], [place] [address] Milla Orozco [facility] 1 [facility], [address] [place] [phone] Follow-up Social History Tobacco Use [...] Info) Description 06/08/2024 13:30 EDT Office Visit [facility] [address] [place] [address] Michelle Shannon MD [address] [place] [phone] documented as of this encounter Visit Diagnoses Not on filedocumented in this encounter Care Teams Director Revenue Relationship Specialty Start Date End Date Michelle Shannon MD [address] [place] [phone] PCP - General 09/08/11 documented as of this encounter
--- OUTSIDE RECORDS SUMMARY | 2024-04-28 15:58 | XMS_ITS | Encounter Summary ---
Author Organization [facility] Address [address] [place] [address] Care Team Providers Care Web Site Specialist Name Role Phone Michelle Shannon MD Primary Care Provider + Encounter Details Date Type Department Care Team (Latest Contact Info) Description 12/17/2015 11:21 EDT - 12/17/2015 23:59 EDT Hospital Encounter [address] [address] Michelle Shannon MD [address] [place] [phone] Discharge Disposition: Home or Self Care Social [...] Sig Dispensed Refills Start Date End Date dbzfqem-iuwokuifrwumm-pl ffeine (EXCEDRIN MIGRAINE) 250-250-65 mg per tabletIndications:migrai [...] by mouth at bedtime 30 Tab 5 04/11/2015 06/10/2017 dextroamphetamine-amphet amine (ADDERALL XR) 20 mg XR capsule Take 1 Cap by mouth 2 times daily Daily Max: 2 Caps 60 Cap 0 06/25/2015 06/17/2017 dextroamphetamine-amphet amine (ADDERALL) 10 mg tablet One tab by mouth in the afternoon as needed. 15 Tab 0 06/25/2015 06/17/2017 duloxetine (CYMBALTA) 30 mg capsule Take 60 [...] Info) Description 06/08/2024 13:30 EDT Office Visit [facility] 550 [facility] [address] [place], [place] [phone] Michelle Shannon MD [address] [place] [phone] documented as of this encounter Visit Diagnoses Not on filedocumented in this encounter Care Teams Web Site Specialist Relationship Specialty Start Date End Date Michelle Shannon MD [address] [place] [phone] PCP - General 09/08/11 documented as of this encounter
--- OUTSIDE RECORDS SUMMARY | 2024-04-28 15:58 | XMS_ITS | Encounter Summary ---
Author Organization 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); RBD (REM behavioral disorder) Discharge Disposition: Auto Discharge Social History Tobacco [...] Sign Reading Time Taken Comments Blood Pressure 102/78 06/24/2016 1121 EDT Pulse 102 06/24/2016 1121 EDT Temperature - - Respiratory Rate 20 06/24/2016 1121 EDT Oxygen Saturation 97% 06/24/2016 1121 EDT Inhaled Oxygen Concentration - - Weight 79.8 kg (176 lb) 06/24/2016 1121 EDT Height 165.1 cm (5' 5) 06/24/2016 1121 EDT Body Mass Index 29.29 06/24/2016 1121 EDT documented in this encounter Discharge Diagnoses Diagnosis G47.419 Narcolepsy without cataplexy-G47.419[ICD-10-CM] G47.52 REM sleep behavior disorder-G47.52[ICD-10-CM] documented in this encounter Discharge Disposition Disposition Code Departure Means Destination Auto Discharge documented in this encounter Progress Notes * Dany Wilson MD - 06/24/2016 1120 EDT [facility] SLEEP PROGRAM FOLLOW-UP/PROGRESS NOTE DATE: 06/24/2016 SUBJECTIVE: Ms Blair is a 41-year-old female seen today for 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 She had been previously followed by Dr Dean Turner and was last seen in 2013. Ms Blair reports today that since her last visit, she has continued to do generally well on Adderall-XR for her narcolepsy and clonazepam and melatonin nightly for her REM sleep behavior disorder. She has continued on Adderall XR 10 mg 3 times daily. Her first dose is taken at 8:00 a.m. after she wakes up. Her next dose is at noon and 3 p.m. She feel that for the most part she has done well, though reports that she has been having worsening daytime sleepiness. This is primarily in the morning hours. She finds herself wanting to take her noon dose earlier on a fairly consistent basis. When she does take her noon dose and her 3:00 p.m. dose, she feels that her level of energy and alertness in the afternoon is actually quite good. She reports no side effects from the medications including worsening anxiety or tremor. With respect to her REM sleep behavior disorder, the patient notes that this too had been generallywell managed up until recently. Roughly 3 weeks ago she had an episode of nocturnal behaviors. She recalls that she was dreaming about being chased by somebody with needles. In an effort to fight them off, she tried to kick the person in her dream. With this, she actually take herself from her bed and struck her head on a bedside table. She suffered a laceration, which needed attending to. She states that prior to this episode and since this episode, she has not had any other dream enacting behaviors that she is aware of, nor have any reported to her. She is typically taking clonazepam 1 mg at bedtime along with 10 mg of melatonin. She does admit that on the night of this event, she did nottake her medications. Outside of this, she does report a safe sleeping environment with no weapons or other dangerous objects. She denies any other episodes of behaviors including somnambulism withinor outside of her bedroom. Past medical, surgical, social history and allergies reviewed and available in the electronic medical record. A complete review of systems was done with pertinent positives and negatives as noted above. Medications: Outpatient Prescriptions Marked as Taking for the 06/24/16 encounter (Office Visit) with Dany Wilson MD Medication Sig Dispense Refill ??? aripiprazole (ABILIFY) 10 mg tablet Take 10 mg by mouth daily. ??? yrjldnj-jmdrzeqcnsyxb-ffivpvzn (EXCEDRIN MIGRAINE) 250-250-65 mg per tablet Take [...] by mouth at bedtime 30 Tab 5 ??? dextroamphetamine-amphetamine (ADDERALL XR) 20 mg XR capsule Take 1 Cap by mouth 2 times daily Daily Max: 2 Caps (Patient taking differently: Take 10 mg by mouth 3 times daily. ) 60 Cap 0 ??? duloxetine (CYMBALTA) 30 mg capsule Take 60 mg by mouth daily. ??? IBUPROFEN (ADVIL ORAL) Take by mouth daily as needed. ??? Melatonin 3 mg Tab TAKE 1 TABLET BY MOUTH AT BEDTIME (Patient taking differently: 10 mg) 30 Tab6 ??? metroNIDAZOLE (METROGEL) 0.75 % gel Apply topically 2 times daily. ??? naratriptan (AMERGE) 2.5 mg tablet Take as directed. Indications: MIGRAINE 12 Tab 11 ??? topiramate (TOPAMAX) 50 mg tablet Take 1 Tab by mouth 2 times daily. 180 Tab 3 OBJECTIVE: Vital Signs: Visit Vitals ??? BP 102/78 (BP Cuff Location: Right arm, Patient Position: Sitting, BP Cuff Sizes: Adult, large) ??? Pulse 102 ??? Resp 20 ??? Ht 165.1 cm (65) ??? Wt 79.8 kg (176 lb) ??? SpO2 97% ??? BMI 29.29 kg/m2 General: pleasant, cooperative HEENT: normocephalic, atraumatic, PERRL Oropharynx: mallampati IV, pink mucosa Neck: supple without lymphadenopathy or thyromegaly Lungs: clear to auscultation bilaterally Heart: regular rate and rhythm, no murmurs Abdomen: slightly overweight, soft, nontender Extremities: no edema Neuro: Speech fluent. Strength 5/5 grossly Psychiatric: AOX3. Normal mood and affect. Judgment and insight appropriate. ASSESSMENT/PLAN: The patient is a 41-year-old female seen today for 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 With respect to her narcoleptic symptoms, she does continue to have excessive daytime sleepiness. She is currently using Adderall XR 10 mg 3 times daily. She seems to do well in the afternoon with her Adderall doses, though the morning seems to be her biggest struggle still. At this point, I suggested that she adjust her dosing. Specifically, she can continue with her first dose as soon as she wakes up in the morning. She should, however, move her second dose earlier in the day as she struggles with excessive daytime sleepiness most in the morning hours. If needed, she canmove her afternoon dose a bit earlier as well. If this results in adequate daytime energy, though she excessive sleepiness in the evening, strategic napping may be an option, which she understands. Regarding her REM sleep behavior disorder, the patient did have an event 3 weeks ago where she kicked hard enough that she threw herself from the bed. She sustained a laceration to her head, which seems to be healing well at this point. Both prior to this and after this, the patient had otherwise been without any reported nocturnal behaviors. She herself felt that her REM sleep behavior disorder had been adequately controlled until this event. Interestingly, she did not take her medications on the night of this event. Given that this was an isolated event associated with her missing her medication, I did not recommend any dosage changes. I did encourage her to vigilant about taking her clonazepam on a nightly basis. I also stressed safety in the home. In addition to the above, I recommended the patient continue to work with her psychiatry team for management of her mood as this too can impact her level of daytime sleepiness. She will make these changes and we will plan for her to follow up in clinic as needed moving forward. Dr Shannon will continue to prescribe both her Adderall and her clonazepam for the time being. The patient or Dr Shannoncan contact the sleep center if either have additional questions or concerns. Dany Wilson MD [facility] Certified-Sleep Medicine CC:Michelle Shannon documented in this encounter Plan of Treatment Upcoming Encounters Date Type Department Care Team (Late st Contact Info) Description 06/08/2024 13:30 EDT Office Visit [facility] [address] [place] [address] Michelle Shannon MD [address] [place] [phone] documented as of this encounter Visit Diagnoses Diagnosis Narcolepsy without cataplexy(347.00)- Primary Narcolepsy without cataplexy RBD (REM behavioral disorder) REM sleep behavior disorder documented in this encounter Care Teams Bar Helper Relationship Specialty Start Date End Date Michelle Shannon MD [address] [place] [address] [phone] PCP - General 09/08/11 documented as of this encounter
--- OUTSIDE RECORDS SUMMARY | 2024-04-28 15:58 | XMS_ITS | Encounter Summary ---
Author Organization [facility] Address [address] [place] [address] Care Team Providers Care Patent Leather Sorter Name Role Phone Michelle Shannon MD Primary Care Provider + Encounter Details Date Type Department Care Team (Late st Contact Info) Description 12/17/2015 Phlebotomy Only [facility] [address] [place], [place] [phone] Ecommerce Manager, Outpatient Sleep related leg cramps; Abnormal weight gain Social History Tobacco Use Types Packs/Day [...] Info) Description 06/08/2024 13:30 EDT Office Visit [facility] [address] [facility] [address] [place] [address] Michelle Shannon MD [address] [place] [phone] documented as of this encounter Procedures Procedure Name Priority Date/Time Associated Diagnosis Comments COMPLETE BLOOD COUNT Routine 12/17/2015 11:54 EDT Sleep related leg cramps Abnormal weight gain MAGNESIUM Routine 12/17/2015 11:54 EDT Sleep related leg cramps Abnormal weight gain BASIC METABOLIC PANEL (BMP) Routine 12/17/2015 11:54 EDT Sleep related leg cramps Abnormal weight gain documented in this encounter Results * (ABNORMAL) BASIC METABOLIC PANEL (12/17/2015 11:54 EDT) Sodium 139 136 - 145 mEq/L 12/17/2015 13:27 [facility] Potassium 4.6 3.5 - 5.0 mEq/L 12/17/2015 13:27 [facility] Chloride 109 96 - 110 mEq/L 12/17/2015 13:27 [facility] CO2 20(L) 24 - 32 mEq/L 12/17/2015 13:27 [facility] BUN 16 10 - 26 mg/dl 12/17/2015 13:27 [facility] Creatinine 0.86 0.52 - 1.04 mg/dl 12/17/2015 13:27 [facility] GFR, Calculated 84 >60 ml/min/1.7 3m2 12/17/2015 13:27 [facility] Comment: eGFR calculated using CKD-EPI equation for non Americans. Multiply eGFR by 1.16 for Americans. Calcium 9.1 8.5 - 10.5 mg/dl 12/17/2015 13:27 [facility] Calculated Calcium 9.7 8.5 - 10.5 mg/dl 12/17/2015 13:27 [facility] Glucose, Serum 84 70 - 100 mg/dl 12/17/2015 13:27 [facility] Fasting? YES 12/17/2015 11:54 [facility] Blood specimen (specimen) BLOOD SPECIMEN / Unknown 12/17/2015 11:54 EDT 12/17/2015 12:36 EDT Michelle Shannon MD CHEMISTRY & BLOO D GAS ORDERABLES [facility] [address] [place] [address] * (ABNORMAL) HEMAGRAM (12/17/2015 11:54 EDT) WBC 6.62 4.0 - 12.4 K/cmm 12/17/2015 12:57 EDT [facility] RBC 3.86 3.86 - 5.04 M/cmm 12/17/2015 12:57 EDT [facility] Hemoglobin 13.0 11.6 - 15.2 gm/dl 12/17/2015 12:57 EDT [facility] HCT 38.4 34.9 - 44.4 % 12/17/2015 12:57 EDT [facility] MCV 100(H) 81 - 98 fl 12/17/2015 12:57 EDT [facility] MCH 33.7(H) 26.7 - 33.3 pg 12/17/2015 12:57 EDT [facility] MCHC 33.9 32.1 - 35.9 gm/dl 12/17/2015 12:57 EDT [facility] RDW-CV 12.5 11.7 - 14.6 % 12/17/2015 12:57 T [facility] RDW-SD 45.8 37.6 - 50.3 fl 12/17/2015 12:57 EDT [facility] PLT 350 141 - 377 K/cmm 12/17/2015 12:57 EDT [facility] MPV 10.1 9.5 - 12.7 fl 12/17/2015 12:57 EDT [facility] Blood specimen (specimen) BLOOD SPECIMEN / Unknown 12/17/2015 11:54 EDT 12/17/2015 12:36 EDT Michelle Shannon MD HEMATOLOGY & PF4 ORDERABLES [facility] [address] [place] [address] * MAGNESIUM (12/17/2015 11:54 EDT) Magnesium 2.0 1.7 - 2.8 mg/dl 12/17/2015 13:27 EDT [facility] Blood specimen (specimen) BLOOD SPECIMEN / Unknown 12/17/2015 11:54 EDT 12/17/2015 12:36 EDT Michelle Shannon MD CHEMISTRY & BLOO D GAS ORDERABLES [facility] [address] [place] [address] documented in this encounter Visit Diagnoses Diagnosis Sleep related leg cramps Abnormal weight gain documented in this encounter Care Teams Patent Leather Sorter Relationship Specialty Start Date End Date Michelle Shannon MD [address] [place] [phone] PCP - General 09/08/11 documented as of this encounter
--- OUTSIDE RECORDS SUMMARY | 2024-04-28 15:58 | XMS_ITS | Encounter Summary ---
Author Organization [facility] Address [address] [place] [address] Care Team Providers Care Cargo And Container Inspector Name Role Phone Michelle Shannon MD Primary Care Provider + Reason for Visit * Reason Onset Date Comments Medications Refill 11/18/2014 Encounter Details Date Type Department Care Team (Late st Contact Info) Description 11/18/2014 Telephone [facility] Sleep Program - [address] [phone] [place] [address] Medications Refill Social History Tobacco Use Types [...] Telephone Encounter - Juliana Díaz RN - 11/18/2014 1149 EST Called pt and let her know she has refills remaining on her clonazepam refill called in in September tot the [facility] in [place]. * Telephone Encounter - Irina Fernandez - 11/18/2014 1146 EST PT needs refill on Klonopin 1mg to be called in to [facility]. documented in this encounter Plan of Treatment Upcoming Encounters Date Type Department Care Team (Late st Contact Info) Description 06/08/2024 13:30 EDT Office Visit [facility] [address] [place], [place] [phone] Michelle Shannon MD [address] [place] [phone] documented as of this encounter Visit Diagnoses Not on filedocumented in this encounter Care Teams Cargo And Container Inspector Relationship Specialty Start Date End Date Michelle Shannon MD [address] [place] [phone] PCP - General 09/08/11 documented as of this encounter
--- OUTSIDE RECORDS SUMMARY | 2024-04-28 15:58 | XMS_ITS | Encounter Summary ---
Author Organization [facility] Address [address] [place] [address] Care Team Providers Care Rivet Maker Name Role Phone Michelle Shannon MD Primary Care Provider + Reason for Visit * Reason Onset Date Comments Follow-up 08/29/2014 Encounter Details Date Type Department Care Team (Late st Contact Info) Description 08/29/2014 Telephone [facility] [address] [place], [place] [phone] Milla Orozco [facility] 1 [facility], Level [address] [place] [phone] Follow-up Social History Tobacco Use [...] Info) Description 06/08/2024 13:30 EDT Office Visit [facility] [address] [place] [address] Michelle Shannon MD [address] [place] [phone] documented as of this encounter Visit Diagnoses Not on filedocumented in this encounter Care Teams Rivet Maker Relationship Specialty Start Date End Date Michelle Shannon MD [address] [place] [phone] PCP - General 09/08/11 documented as of this encounter
--- OUTSIDE RECORDS SUMMARY | 2024-04-28 15:58 | XMS_ITS | Encounter Summary ---
Author Organization [facility] Address [address] [place] [address] Care Team Providers Care Marine Operations Coordinator Name Role Phone Michelle Shannon MD Primary Care Provider + Reason for Visit * Reason Onset Date Comments Other 04/23/2015 Encounter Details Date Type Department Care Team (Late st Contact Info) Description 04/23/2015 Telephone [facility] Sleep Program - [address] [phone] [place] [address] Other Social History Tobacco Use Types Packs/Day [...] encounter Miscellaneous Notes * Telephone Encounter - Kerry Olivera - 04/23/2015 0828 EDT Patient called to get a refill on her Adderall XR, 20mg 2x per day. Patient aware Dr. Turner is out of office till 04/29/15. documented in this encounter Plan of Treatment Upcoming Encounters Date Type Department Care Team (Late st Contact Info) Description 06/08/2024 13:30 EDT Office Visit [facility] [address] [place], [place] [phone] Michelle Shannon MD [address] [place] [phone] documented as of this encounter Visit Diagnoses Not on filedocumented in this encounter Care Teams Marine Operations Coordinator Relationship Specialty Start Date End Date Michelle Shannon MD [address] [place] [phone] PCP - General 09/08/11 documented as of this encounter
--- OUTSIDE RECORDS SUMMARY | 2024-04-28 15:58 | XMS_ITS | Encounter Summary ---
Author Organization [facility] Address [address] [place] [address] Care Team Providers Care Insurance Underwriter Sales Name Role Phone Michelle Shannon MD Primary Care Provider + Reason for Visit * Reason Comments Depression Sleep Disorder Encounter Details Date Type Department Care Team (Late Contact Info) Description 08/30/2014 10:00 EST Office Visit [facility] [address] [place] [address] [place] [phone] MDD (major depressive disorder) (Primary Dx) Social History Tobacco Use Types [...] Info) Description 06/08/2024 13:30 EDT Office Visit [facility] [address] [place] [address] Michelle Shannon MD [address] [place] [phone] documented as of this encounter Visit Diagnoses Diagnosis MDD (major depressive disorder)- Primary Major depressive disorder, single episode, unspecified documented in this encounter Care Teams Insurance Underwriter Sales Relationship Specialty Start Date End Date Michelle Shannon MD [address] [place] [phone] PCP - General 09/08/11 documented as of this encounter
--- OUTSIDE RECORDS SUMMARY | 2024-04-28 15:58 | XMS_ITS | Encounter Summary ---
Author Organization [facility] Address [address] [place] [address] Care Team Providers Care Silk Finisher Name Role Phone Michelle Shannon MD Primary Care Provider + Reason for Visit * Reason Onset Date Comments Follow-up 08/29/2014 Encounter Details Date Type Department Care Team (Late st Contact Info) Description 08/29/[address] [facility] 1 [place], [place] [address] Milla Orozco [facility] 1 [facility], [address] [place] [phone] Follow-up Social History Tobacco Use [...] Info) Description 06/08/2024 13:30 EDT Office Visit [facility] [address] [place] [address] Michelle Shannon MD [address] [place] [phone] documented as of this encounter Visit Diagnoses Not on filedocumented in this encounter Care Teams Silk Finisher Relationship Specialty Start Date End Date Michelle Shannon MD [address] [place] [phone] PCP - General 09/08/11 documented as of this encounter
--- OUTSIDE RECORDS SUMMARY | 2024-04-28 15:58 | XMS_ITS | Encounter Summary ---
Author Organization [facility] Address [address] [place] [address] Care Team Providers Care Cotton Converter Name Role Phone Michelle Shannon MD Primary Care Provider + Reason for Visit * Reason Onset Date Comments Medications Refill 04/07/2015 Encounter Details Date Type Department Care Team (Late st Contact Info) Description 04/07/2015 Refill [facility] Sleep Program - [address] [address] Juliana Díaz, RN [address] [place] [address] Medications Refill Social History Tobacco Use Types [...] at bedtime 30 Tab 5 04/11/2015 06/10/2017 documented in this encounter Miscellaneous Notes * Telephone Encounter - Juliana Díaz RN - 04/11/2015 0857 EDT Clonazepam refills called in as prescribed to [facility] pharmacy (LM w/pharm and pt asking pt to call Sleep Ctr. To ask her if needs adderall refills? ) * Telephone Encounter - Juliana Díaz RN - 04/09/2015 1147 EDT Tried pt again, no answer, phone not accepting messages. * Telephone Encounter - Juliana Díaz RN - 04/07/2015 0938 EDT Left message asking patient to call me at the Sleep Center. documented in this encounter Plan of Treatment Upcoming Encounters Date Type Department Care Team (Late st Contact Info) Description 06/08/2024 13:30 EDT Office Visit [facility] [address] [facility] [address] [place] [address] Michelle Shannon MD [address] [place] [phone] documented as of this encounter Visit Diagnoses Not on filedocumented in this encounter Discontinued Medications Medication Sig Discontinue Reason Start Date End Da te clonazePAM (KLONOPIN) 1 mg tablet take 1 tablet by mouth at bedtime. Reorder 10/01/2014 04/07/2015 documented as of this encounter Care Teams Cotton Converter Relationship Specialty Start Date End Date Michelle Shannon MD [address] [place] [phone] PCP - General 09/08/11 documented as of this encounter
--- OUTSIDE RECORDS SUMMARY | 2024-04-28 15:58 | XMS_ITS | Encounter Summary ---
Author Organization [facility] Address [address] [place] [address] Care Team Providers Care Outdoor Emergency Care Technician Name Role Phone Michelle Shannon MD Primary Care Provider + Reason for Visit * Reason Onset Date Comments Medications Refill 11/12/2014 Encounter Details Date Type Department Care Team (Late st Contact Info) Description 11/12/2014 Telephone [facility] Sleep Program - [address] [phone] Juliana Díaz RN [address] [place] [address] Medications Refill Social History Tobacco Use Types [...] Fill Date: 11/15/14 Daily Max: 2 Caps 60 Cap 0 11/15/2014 12/16/2014 documented in this encounter Miscellaneous Notes * Telephone Encounter - Juliana Díaz RN - 11/14/2014 0940 EST Adderall 20mg XR prescription ready for corn picker at the [facility] (post dated 11/15/14). * Telephone Encounter - Juliana Díaz RN - 11/13/2014 0919 EST Left message asking patient to call me at the Sleep Center (refill on prn adderall??) documented in this encounter Plan of Treatment Upcoming Encounters Date Type Department Care Team (Late st Contact Info) Description 06/08/2024 13:30 EDT Office Visit [facility] [address] [place] [address] Michelle Shannon MD [address] [place] [address] [phone] documented as of this encounter Visit Diagnoses Not on filedocumented in this encounter Discontinued Medications Medication Sig Discontinue Reason Start Date End Da te dextroamphetamine-ampheta mine (ADDERALL XR) 20 mg XR capsule Take 1 Cap by mouth 2 times daily. Reorder 10/18/2014 11/12/2014 documented as of this encounter Care Teams Outdoor Emergency Care Technician Relationship Specialty Start Date End Date Michelle Shannon MD [address] [place] [address] [phone] PCP - General 09/08/11 documented as of this encounter
--- OUTSIDE RECORDS SUMMARY | 2024-04-28 15:58 | XMS_ITS | Encounter Summary ---
Author Organization [facility] Address [address] [place] [address] Care Team Providers Care Diet Supervisor Name Role Phone Michelle Shannon MD Primary Care Provider + Reason for Visit * Reason Onset Date Comments Medications Refill 04/23/2015 Encounter Details Date Type Department Care Team (Late st Contact Info) Description 04/23/2015 Refill [facility] Sleep Program - [address] [address] Ceci Hutchins [facility] [place] [address] Medications Refill Social History Tobacco Use Types [...] Date End Da te dextroamphetamine-amphet amine (ADDERALL) 10 mg tablet One tab by mouth in the afternoon as needed. 15 Tab 0 04/23/2015 06/25/2015 dextroamphetamine-amphet amine (ADDERALL XR) 20 mg XR capsule Take 1 Cap by mouth 2 times daily Daily Max: 2 Caps 60 Cap 0 04/23/2015 05/21/2015 documented in this encounter Plan of Treatment Upcoming Encounters Date Type Department Care Team (Late st Contact Info) Description 06/08/2024 13:30 EDT Office Visit [facility] [address] [place], [place] [phone] Michelle Shannon MD [address] [place] [address] [phone] documented as of this encounter Visit Diagnoses Not on filedocumented in this encounter Discontinued Medications Medication Sig Discontinue Reason Start Date End Da te dextroamphetamine-amphe tamine (ADDERALL XR) 20 mg XR capsule Take 1 Cap by mouth 2 times daily Earliest Fill Date: 03/11/15 Daily Max: 2 Caps Reorder 03/11/2015 04/23/2015 dextroamphetamine-amphe tamine (ADDERALL) 10 mg tablet One tab by mouth in the afternoon as needed. Earliest Fill Date: 03/11/15 Reorder 03/11/2015 04/23/2015 documented as of this encounter Care Teams Diet Supervisor Relationship Specialty Start Date End Date Michelle Shannon MD [address] [place] [address] [phone] PCP - General 09/08/11 documented as of this encounter
--- OUTSIDE RECORDS SUMMARY | 2024-04-28 15:58 | XMS_ITS | Encounter Summary ---
Author Organization [facility] Address [address] [place] [address] Care Team Providers Care Help Aid Name Role Phone Michelle Shannon MD Primary Care Provider + Reason for Visit * Reason Onset Date Comments Follow-up 09/06/2014 Encounter Details Date Type Department Care Team (Late st Contact Info) Description 09/06/2014 Telephone [facility] [address] [place], [place] [address] Milla Orozco [facility] 1 [facility], Level [address] [place] [phone] Follow-up Social History Tobacco Use [...] Info) Description 06/08/2024 13:30 EDT Office Visit [facility] [address] [place] [address] Michelle Shannon MD [address] [place] [phone] documented as of this encounter Visit Diagnoses Not on filedocumented in this encounter Care Teams Help Aid Relationship Specialty Start Date End Date Michelle Shannon MD [address] [place] [phone] PCP - General 09/08/11 documented as of this encounter
--- OUTSIDE RECORDS SUMMARY | 2024-04-28 15:58 | XMS_ITS | Encounter Summary ---
Author Organization [facility] Address [address] [place] [address] Care Team Providers Care Heel Burnisher Name Role Phone Michelle Shannon MD Primary Care Provider + Reason for Visit * Reason Onset Date Comments Medications Refill 10/01/2014 Encounter Details Date Type Department Care Team (Late st Contact Info) Description 10/01/2014 Refill [facility] Sleep Program - S [address] [address] [place] [address] Medications Refill Social History Tobacco Use Types [...] at bedtime. 30 Tab 5 10/01/2014 04/07/2015 documented in this encounter Miscellaneous Notes * Telephone Encounter - Juliana Díaz RN - 10/01/2014 4782 EST Called in clonazepam refills as prescribed to [facility]. * Telephone Encounter - Juliana Díaz RN - 10/01/2014 1026 EST Left message asking patient to call me at the Sleep Center. * Telephone Encounter - Goe Sharma - 10/01/2014 0955 EST Calling to request a refill of Klonopin to be called into [facility] in [place] documented in this encounter Plan of Treatment Upcoming Encounters Date Type Department Care Team (Late st Contact Info) Description 06/08/2024 13:30 EDT Office Visit [facility] [address] [facility] [address] [place] [address] Michelle Shannon MD [address] [place] [address] [phone] documented as of this encounter Visit Diagnoses Not on filedocumented in this encounter Discontinued Medications Medication Sig Discontinue Reason Start Date End Da te clonazePAM (KLONOPIN) 1 mg tablet take 1 tablet by mouth at bedtime Reorder 01/05/2014 10/01/2014 documented as of this encounter Care Teams Heel Burnisher Relationship Specialty Start Date End Date Michelle Shannon MD [address] [place] [address] [phone] PCP - General 09/08/11 documented as of this encounter
--- OUTSIDE RECORDS SUMMARY | 2024-04-28 15:58 | XMS_ITS | Encounter Summary ---
Author Organization [facility] Address [address] [place] [address] Care Team Providers Care Multi Sensor Operator Name Role Phone Michelle Shannon MD Primary Care Provider + Encounter Details Date Type Department Care Team (Late st Contact Info) Description 08/21/2014 Documentation Visit [facility] 1 [place], [place] [address] Milla Orozco [facility] 1 [facility], Level [address] [place] [address] Social History Tobacco Use Types [...] Info) Description 06/08/2024 13:30 EDT Office Visit [facility] [address] [facility] [address] [place], [place] [phone] Michelle Shannon MD [address] [place] [phone] documented as of this encounter Visit Diagnoses Not on filedocumented in this encounter Care Teams Multi Sensor Operator Relationship Specialty Start Date End Date Michelle Shannon MD [address] [place] [address] [phone] PCP - General 09/08/11 documented as of this encounter
--- OUTSIDE RECORDS SUMMARY | 2024-04-28 15:58 | XMS_ITS | Encounter Summary ---
Author Organization [facility] Address [address] [place] [address] Care Team Providers Care Custodial Laborer Name Role Phone Michelle Shannon MD Primary Care Provider + Reason for Visit * Reason Onset Date Comments Follow-up 08/29/2014 Encounter Details Date Type Department Care Team (Late st Contact Info) Description 08/29/2014 Telephone [facility] 1 [place], [place] [address] Milla Orozco [facility] 1 [facility], [address] [place] [phone] Follow-up Social History Tobacco Use [...] Info) Description 06/08/2024 13:30 EDT Office Visit [facility] [address] [place] [address] Michelle Shannon MD [address] [place] [phone] documented as of this encounter Visit Diagnoses Not on filedocumented in this encounter Care Teams Custodial Laborer Relationship Specialty Start Date End Date Michelle Shannon MD [address] [place] [phone] PCP - General 09/08/11 documented as of this encounter
--- OUTSIDE RECORDS SUMMARY | 2024-04-28 15:58 | XMS_ITS | Encounter Summary ---
Author Organization [facility] Address [address] [place] [address] Care Team Providers Care Vocational Placement Specialist Name Role Phone Michelle Shannon MD Primary Care Provider + Reason for Visit * Reason Onset Date Comments Other 07/07/2015 Encounter Details Date Type Department Care Team (Late st Contact Info) Description 07/07/2015 Telephone [facility] Sleep Program - [address] [phone] [place] [address] Other Social History Tobacco Use Types Packs/Day [...] encounter Miscellaneous Notes * Telephone Encounter - Dean [place] MD - 07/08/2015 0897 EDT Another copy is available to be picked up. * Telephone Encounter - Kerry Olivera - 07/07/2015 1025 EDT Patient calling today because she has not received letter that was requested on 06/17/15 for narcolepsy. She can picket labor union in office when it is ready. Please call when done [phone]. documented in this encounter Plan of Treatment Upcoming Encounters Date Type Department Care Team (Late st Contact Info) Description 06/08/2024 13:30 EDT Office Visit [facility] [address] [place], [place] [phone] Michelle Shannon MD [address] [place] [phone] documented as of this encounter Visit Diagnoses Not on filedocumented in this encounter Care Teams Vocational Placement Specialist Relationship Specialty Start Date End Date Michelle Shannon MD [address] [place] [phone] PCP - General 09/08/11 documented as of this encounter
--- OUTSIDE RECORDS SUMMARY | 2024-04-28 15:58 | XMS_ITS | Encounter Summary ---
Author Organization Health system Address [address] [place] [address] Care Team Providers Care Right Of Way Cutter Name Role Phone Michelle Shannon MD Primary Care Provider + Reason for Visit * Reason Onset Date Comments Follow-up 08/21/2014 Encounter Details Date Type Department Care Team (Late st Contact Info) Description 08/21/2014 Telephone [facility] 1 [place], [place] [address] Milla Orozco [facility] 1 [facility], Level [address] [place] [phone] Follow-up Social History Tobacco Use [...] Info) Description 06/08/2024 13:30 EDT Office Visit [facility] [address] [place] [address] Michelle Shannon MD [address] [place] [phone] documented as of this encounter Visit Diagnoses Not on filedocumented in this encounter Care Teams Right Of Way Cutter Relationship Specialty Start Date End Date Michelle Shannon MD [address] [place] [phone] PCP - General 09/08/11 documented as of this encounter
--- OUTSIDE RECORDS SUMMARY | 2024-04-28 15:58 | XMS_ITS | Encounter Summary ---
Author Organization [facility] Address [address] [place] [address] Care Team Providers Care Metal Fabricator Apprentice Name Role Phone Michelle Shannon MD Primary Care Provider + Reason for Visit * Reason Onset Date Comments Follow-up 08/29/2014 Encounter Details Date Type Department Care Team (Late st Contact Info) Description 08/29/2014 Telephone [facility] 1 [place], [place] [phone] Milla Orozco [facility] 1 [facility], Level [address] [place] [phone] Follow-up Social History Tobacco Use [...] Info) Description 06/08/2024 13:30 EDT Office Visit [facility] [address] [place] [address] Michelle Shannon MD [address] [place] [phone] documented as of this encounter Visit Diagnoses Not on filedocumented in this encounter Care Teams Metal Fabricator Apprentice Relationship Specialty Start Date End Date Michelle Shannon MD [address] [place] [phone] PCP - General 09/08/11 documented as of this encounter
--- OUTSIDE RECORDS SUMMARY | 2024-04-28 15:58 | XMS_ITS | Encounter Summary ---
Author Organization [facility] Address [address] [place] [address] Care Team Providers Care Manager Social Services Name Role Phone Michelle Shannon MD Primary Care Provider + Reason for Visit * Reason Comments Depression Anxiety Encounter Details Date Type Department Care Team ([facility] st Contact Info) Description 08/20/2014 8:30 EST Office Visit [address] [address] Romeo Ramesh [facility] [address] [phone] MDD (major depressive disorder), recurrent episode, [...] Dispensed Refills Start Date End Da te calcium-vitamin D (OS-NOEMY D) 500 mg(1,250mg) -200 unit per tabletIndications:MDD (major depressive disorder), recurrent episode, moderate (HCC-CMS) Take 1 Tab by mouth 2 times daily with breakfast and dinner. 60 Tab 0 08/20/2014 11/19/2019 documented in this encounter Progress Notes * Romeo Ramesh MD - 08/20/2014 9870 EST Mid-Level Psychiatry Service - E/M Follow-Up Visit Chief Complaint Patient presents with ??? Depression ??? Anxiety History of Present Illness/Clinical Update: Interval History: Pt reports interval improvement in depression and skin picking sx. Has been working with therapist to use alternate techniques to manage distress. Sleep has been stable - she is on a routine of goingto bed around 10-1030, waking up around 7AM. Depression: 5 on a scale of 1 to 10 (10 high) Anxiety: 7 on a scale of 1 to 10 (10 high) Suicidal Ideation: 4 on a scale of 1 to 10 (10 high) She requests to add back the late afternoon dose of IR adderall that had been prescribed to her by Dr. [place]. She is finding it difficult to do things at home, and this had been helpful in the past. I reviewed his notes on this. I said that it would be ok to add that dose back in , and that we would monitor for any sx of increased anxiety or insomnia or skin picking. We reviewed her vit d results which are in the insufficient range. I advised that she start taking Vit-D + calcium. I talked to the pharmacist who was pessimistic that this would be covered by medicaid, but we are going to try to see if it will go through. Pt also plans to start her fish oil to bring up HDL Current Outpatient Prescriptions Medication Sig Dispense Refill ??? aripiprazole (ABILIFY) 10 mg tablet Take 5 mg by mouth daily. ??? uojndof-erjdpctuwxvtk-qtjawpiv (EXCEDRIN MIGRAINE) 250-250-65 mg per tablet Take 1 Tab by mouthevery 6 hours as needed. Indications: MIGRAINE ??? Azelaic Acid (FINACEA) 15 % gel Apply topically 2 times daily. ??? clonazePAM (KLONOPIN) 1 mg tablet take 1 tablet by mouth at bedtime 30 Tab 5 ??? [START ON 08/23/2014] dextroamphetamine-amphetamine (ADDERALL XR) 20 mg XR capsule Take 1 Cap by mouth 2 times daily. Earliest Fill Date: 08/23/14 60 Cap 0 ??? duloxetine (CYMBALTA) 30 mg capsule Take 90 mg by mouth daily. ??? IBUPROFEN (ADVIL ORAL) Take by mouth daily as needed. ??? LEVONORGESTREL-ETH ESTRA (KATHY ORAL) Take by mouth daily. ??? Melatonin 3 mg Tab TAKE 1 TABLET BY MOUTH AT BEDTIME 30 Tab 6 ??? metroNIDAZOLE (METROGEL) 0.75 % gel Apply topically 2 times daily. ??? naratriptan (AMERGE) 2.5 mg tablet Take as directed. Indications: MIGRAINE 12 Tab 11 ??? topiramate (TOPAMAX) 50 mg tablet Take 1 Tab by mouth 2 times daily. 180 Tab 3 No current facility-administered medications for this visit. Laboratory Results: Vit D: 21 Vital signs: There were no vitals taken for this visit. Mental Status Exam: Adequate grooming, no new lesions on face, spot from last week is healing, mood better, affect a little bit odd, but overall in good range with some anxiety noted, linear TP, TC with no SI/HI/AH/VH, motor is wnl, cog is intact, I/J moderate, impulse control moderate and improved Assessment: MDD: interval improvement. Will revert back to her usual schedule of adderall for narcolepsy. As she has gotten consistent with meds/attendance her mood/anxiety sx have improved. We should be able toget a better sense of the effect of addition of the 10mg of IR adderall (around 1530 daily) Plan: 1. Start Vit D+ calcium 4923-4494 u per day 2. Start home fish oil supplements 3. Add dose of adderall IR 10mg at 1530 pt has supply at home) 4. Cont PHP 5. DC planning 6. CC to [place] I spent a total of 25 minutes in face to face time with this patient today and greater than 50% of that time was spent counseling the patient on the risks and treatment options for depression, anxiety. Romeo Ramesh MD Attending Psychiatrist documented in this encounter Plan of Treatment Upcoming Encounters Date Type Department Care Team (Late st Contact Info) Description 06/08/2024 13:30 EDT Office Visit [facility] [address] [facility] [address] [place] [address] Michelle Shannon MD [address] [place] [address] [phone] documented as of this encounter Visit Diagnoses Diagnosis MDD (major depressive disorder), recurrent episode, moderate ([facility])- Primary Major depressive disorder, recurrent episode, moderate documented in this encounter Care Teams Manager Social Services Relationship Specialty Start Date End Date Michelle Shannon MD [address] [place] [phone] PCP - General 09/08/11 documented as of this encounter
--- OUTSIDE RECORDS SUMMARY | 2024-04-28 15:58 | XMS_ITS | Encounter Summary ---
Author Organization [facility] Address [address] [place] [address] Care Team Providers Care Metalizing Machine Operator Automatic Name Role Phone Michelle Shannon MD Primary Care Provider + Reason for Visit * Reason Onset Date Comments Other 06/17/2015 Encounter Details Date Type Department Care Team (Late st Contact Info) Description 06/17/2015 Telephone [facility] Sleep Program - [address] [phone] [place] [address] Other Social History Tobacco Use Types Packs/Day [...] encounter Miscellaneous Notes * Telephone Encounter - Irina Fernandez - 06/17/2015 0953 EDT PT wants to take classes and because of her disability she needs a letter written for her school loan. Letter needs to state that she is capable of getting through classes and that her narcolepsy will not prevent her from doing so. She is hoping to pick this up here at the clinic, hopefully this week. Please call her when ready. documented in this encounter Plan of Treatment Upcoming Encounters Date Type Department Care Team (Late st Contact Info) Description 06/08/2024 13:30 EDT Office Visit [facility] [address] [place], [place] [phone] Michelle Shannon MD [address] [place] [phone] documented as of this encounter Visit Diagnoses Not on filedocumented in this encounter Care Teams Metalizing Machine Operator Automatic Relationship Specialty Start Date End Date Michelle Shannon MD [address] [place] [phone] PCP - General 09/08/11 documented as of this encounter
--- OUTSIDE RECORDS SUMMARY | 2024-04-28 15:58 | XMS_ITS | Encounter Summary ---
Author Organization [facility] Address [address] [place] [address] Care Team Providers Care Postal Superintendent Name Role Phone Michelle Shannon MD Primary Care Provider + Encounter Details Date Type Department Care Team (Late st Contact Info) Description 08/13/2014 Phlebotomy Only [facility] [address] [place], [place] [phone] Browning Processor, Outpatient MDD (major depressive disorder); Hyperlipidemia Social History Tobacco Use Types Packs/Day Years [...] Info) Description 06/08/2024 13:30 EDT Office Visit [facility] [address] [facility] [address] [place] [address] Michelle Shannon MD [address] [place] [phone] documented as of this encounter Procedures Procedure Name Priority Date/Time Associated Diagnosis Comments LIPID PROFILE (INCLUDES CHOLESTEROL, TRIGLYCERIDES, HDL, LDL) Routine 08/13/2014 8:09 EST Hyperlipidemia COMPREHENSIVE METABOLIC PANEL (CMP) Routine 08/13/2014 8:09 EST MDD (major depressive disorder) documented in this encounter Results * LIPID PROFILE (INCLUDES CHOLESTEROL, TRIGLYCERIDES, HDL, LDL) (08/13/2014 8:09 EST) Cholesterol 162 mg/dl 08/13/2014 11:22 [facility] Comment: Desirable:<200 Borderline High:200-239 High:>xt=186 Triglycerides 135 mg/dl 08/13/2014 11:22 [facility] Comment: Normal:<150 Borderline High:150-199 High:200-499 Very High:>ae=094 HDL 39 mg/dl 08/13/2014 11:22 [facility] Comment: Low:<40 Normal:40-60 Desirable: >60 LDL, Calculated 96 mg/dl 4 11:22 [facility] Comment: Optimal:<100 Near Optimal:100-129 Borderline High:130-159 High:160-189 Very High:>wr=960 Chol/HDL Ratio 4.2 08/13/2014 11:22 [facility] Fasting? No 08/13/2014 8:09 [facility] Non HDL Cholesterol 123 mg/dl 08/13/2014 11:22 [facility] Comment: Desirable:<130 Borderline:130-159 High: 160-189 Very High: >so=718 Blood specimen (specimen) BLOOD SPECIMEN / Unknown 08/13/2014 8:09 EST 08/13/2014 10:03 EST Rosemary Hussein MD CHEMISTR Y & BLOOD GAS ORDERABLES [facility] [address] [place] [address] * (ABNORMAL) COMPREHENSIVE METABOLIC PANEL (CMP) (08/13/2014 8:09 EST) Potassium 4.0 3.5 - 5.0 mEq/L 08/13/2014 11:22 [facility] Sodium 141 136 - 145 mEq/L 08/13/2014 11:22 [facility] Chloride 104 96 - 110 mEq/L 08/13/2014 11:22 [facility] CO2 22(L) 24 - 32 mEq/L 08/13/2014 11:22 [facility] Total Alkaline Phosphatase 85 38 - 126 U/L 08/13/2014 11:22 [facility] Bilirubin, Total 0.6 <1.4 mg/dl 08/13/20 14 11:22 [facility] AST 16 15 - 46 U/L 08/13/2014 11:22 [facility] ALT 21 <53 U/L 08/13/2014 11:22 [facility] Albumin 4.0 3.4 - 4.9 g/dl 08/13/2014 11:22 [facility] Total Protein 6.8 6.5 - 8.3 g/dl 08/13/2014 11:22 [facility] Creatinine 0.96 0.52 - 1.04 mg/dl 08/13/2014 11:22 [facility] GFR, Calculated >60 >60 ml/min/1.7 3m2 08/13/2014 11:22 [facility] BUN 17 10 - 26 mg/dl 08/13/2014 11:22 [facility] Calcium 9.5 8.5 - 10.5 mg/dl 08/13/2014 11:22 [facility] Calculated Calcium 9.9 8.5 - 10.5 mg/dl 08/13/2014 11:22 [facility] Glucose, Serum 88 70 - 100 mg/dl 08/13/2014 11:22 [facility] Fasting? No 08/13/2014 8:09 [facility] Blood specimen (specimen) BLOOD SPECIMEN / Unknown 08/13/2014 8:09 EST 08/13/2014 10:03 EST Rosemary Hussein MD CHEMISTR Y & BLOOD GAS ORDERABLES [facility] [address] [place] [address] documented in this encounter Visit Diagnoses Diagnosis MDD (major depressive disorder) Major depressive disorder, single episode, unspecified Hyperlipidemia Other and unspecified hyperlipidemia documented in this encounter Care Teams Postal Superintendent Relationship Specialty Start Date End Date Michelle Shannon MD [address] [place] [phone] PCP - General 09/08/11 documented as of this encounter
--- OUTSIDE RECORDS SUMMARY | 2024-04-28 15:58 | XMS_ITS | Encounter Summary ---
Author Organization [facility] Address [address] [place] [address] Care Team Providers Care Career Information Specialist Name Role Phone Michelle Shannon MD Primary Care Provider + Reason for Visit * Reason Onset Date Comments Medications Refill 06/10/2017 Encounter Details Date Type Department Care Team (Late st Contact Info) Description 06/10/2017 Telephone [facility] [address] [place] [address] Michelle Shannon MD [address] [place] [phone] Medications Refill Social History Tobacco Use [...] * Telephone Encounter - Azeb Sher - 06/13/2017 1630 EDT LM to pt and informed of this info. Azeb Li * Telephone Encounter - Azeb Sher - 06/10/2017 1639 EDT TW called and reported that her prescription of Loratadine isn't covered by her insurance. She's requesting a generic sent to [facility]. Guillermo, Azeb documented in this encounter Plan of Treatment Upcoming Encounters Date Type Department Care Team (Late st Contact Info) Description 06/08/2024 13:30 EDT Office Visit [facility] [address] [place], [place] [phone] Michelle Shannon MD [address] [place] [phone] documented as of this encounter Visit Diagnoses Not on filedocumented in this encounter Care Teams Career Information Specialist Relationship Specialty Start Date End Date Michelle Shannon MD [address] [place] [phone] PCP - General 09/08/11 documented as of this encounter
--- OUTSIDE RECORDS SUMMARY | 2024-04-28 15:58 | XMS_ITS | Encounter Summary ---
Author Organization [facility] Address [address] [place] [address] Care Team Providers Care Crew Boat Operator Name Role Phone Michelle Shannon MD Primary Care Provider + Encounter Details Date Type Department Care Team (Late st Contact Info) Description 12/17/2015 Orders Only Non [facility] Michelle Shannon MD [address] [place] [phone] Sleep related leg cramps (Primary Dx); Abnormal weight gain Social History Tobacco Use [...] Description 06/08/2024 13:30 EDT Office Visit [facility] [address] [place] [address] Michelle Shannon MD [address] [place] [phone] documented as of this encounter Results * (ABNORMAL) BASIC METABOLIC PANEL (12/17/2015 11:54 EDT) Sodium 139 136 - 145 mEq/L 12/17/2015 13:27 [facility] Potassium 4.6 3.5 - 5.0 mEq/L 12/17/2015 13:27 [facility] Chloride 109 96 - 110 mEq/L 12/17/2015 13:27 [facility] CO2 20(L) 24 - 32 mEq/L 12/17/2015 13:27 [facility] BUN 16 10 - 26 mg/dl 12/17/2015 13:27 [facility] Creatinine 0.86 0.52 - 1.04 mg/dl 12/17/2015 13:27 [facility] GFR, Calculated 84 >60 ml/min/1.7 3m2 12/17/2015 13:27 [facility] Comment: eGFR calculated using CKD-EPI equation for non Americans. Multiply eGFR by 1.16 for Americans. Calcium 9.1 8.5 - 10.5 mg/dl 12/17/2015 13:27 [facility] Calculated Calcium 9.7 8.5 - 10.5 mg/dl 12/17/2015 13:27 [facility] Glucose, Serum 84 70 - 100 mg/dl 12/17/2015 13:27 [facility] Fasting? YES 12/17/2015 11:54 [facility] Blood specimen (specimen) BLOOD SPECIMEN / Unknown 12/17/2015 11:54 EDT 12/17/2015 12:36 EDT Michelle Shannon MD CHEMISTRY & BLOO D GAS ORDERABLES [facility] [address] [place] [address] * (ABNORMAL) HEMAGRAM (12/17/2015 11:54 EDT) WBC 6.62 4.0 - 12.4 K/cmm 12/17/2015 12:57 EDT [facility] RBC 3.86 3.86 - 5.04 M/cmm 12/17/2015 12:57 EDT [facility] Hemoglobin 13.0 11.6 - 15.2 gm/dl 12/17/2015 12:57 EDT [facility] HCT 38.4 34.9 - 44.4 % 12/17/2015 12:57 EDT [facility] MCV 100(H) 81 - 98 fl 12/17/2015 12:57 EDT [facility] MCH 33.7(H) 26.7 - 33.3 pg 12/17/2015 12:57 EDT [facility] MCHC 33.9 32.1 - 35.9 gm/dl 12/17/2015 12:57 T [facility] RDW-CV 12.5 11.7 - 14.6 % 12/17/2015 12:57 T [facility] RDW-SD 45.8 37.6 - 50.3 fl 12/17/2015 12:57 T [facility] PLT 350 141 - 377 K/cmm 12/17/2015 12:57 T [facility] MPV 10.1 9.5 - 12.7 fl 12/17/2015 12:57 EDT [facility] Blood specimen (specimen) BLOOD SPECIMEN / Unknown 12/17/2015 11:54 EDT 12/17/2015 12:36 EDT Michelle Shannon MD HEMATOLOGY & PF4 ORDERABLES [facility] [address] [place] [address] * MAGNESIUM (12/17/2015 11:54 EDT) Magnesium 2.0 1.7 - 2.8 mg/dl 12/17/2015 13:27 EDT [facility] Blood specimen (specimen) BLOOD SPECIMEN / Unknown 12/17/2015 11:54 EDT 12/17/2015 12:36 EDT Michelle Shannon MD CHEMISTRY & BLOO D GAS ORDERABLES [facility] [address] [place] [address] documented in this encounter Visit Diagnoses Diagnosis Sleep related leg cramps- Primary Abnormal weight gain documented in this encounter Care Teams Crew Boat Operator Relationship Specialty Start Date End Date Michelle Shannon MD [address] [place] [phone] PCP - General 09/08/11 documented as of this encounter
--- OUTSIDE RECORDS SUMMARY | 2024-04-28 15:58 | XMS_ITS | Encounter Summary ---
Author Organization [facility] Address [address] [place] [address] Care Team Providers Care Databases Software Consultant Name Role Phone Michelle Shannon MD Primary Care Provider + Reason for Visit * Reason Onset Date Comments Follow-up 09/09/2014 Encounter Details Date Type Department Care Team (Late st Contact Info) Description 09/09/2014 Telephone [facility] [address] [place], [place] [address] Milla Orozco [facility] 1 [facility], [address] [place] [phone] Follow-up Social History Tobacco Use [...] Info) Description 06/08/2024 13:30 EDT Office Visit [facility] [address] [place] [address] Michelle Shannon MD [address] [place] [phone] documented as of this encounter Visit Diagnoses Not on filedocumented in this encounter Care Teams Databases Software Consultant Relationship Specialty Start Date End Date Michelle Shannon MD [address] [place] [phone] PCP - General 09/08/11 documented as of this encounter
--- OUTSIDE RECORDS SUMMARY | 2024-04-28 15:58 | XMS_ITS | Encounter Summary ---
Author Organization [facility] Address [address] [place] [address] Care Team Providers Care Oven Attendant Name Role Phone Michelle Shannon MD Primary Care Provider + Reason for Visit * Reason Onset Date Comments Other 06/25/2015 Encounter Details Date Type Department Care Team (Late st Contact Info) Description 06/25/2015 Telephone [facility] - [address] [phone] [place] [address] Other Social History Tobacco Use Types Packs/Day [...] as needed. 15 Tab 0 06/25/2015 06/17/2017 dextroamphetamine-amphet amine (ADDERALL XR) 20 mg XR capsule Take 1 Cap by mouth 2 times daily Daily Max: 2 Caps 60 Cap 0 06/25/2015 06/17/2017 documented in this encounter Miscellaneous Notes * Telephone Encounter - Juliana Díaz RN - 06/25/2015 1118 EDT Called pt and left a voice mail reminding her, as per letter mailed to her and her PCP, that is leaving the Sleep Practice and recommending that her PCP take over prescribing her stimulants since stable on medication. Suggested she contact office now regarding and have a planin place for next month. Asked her to call the Sleep Center if she has questions about message. 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 * Telephone Encounter - Kerry Olivera - 06/25/2015 1049 EDT Needs refill on Adderall XR 20 mg 1 cap 2x per day & Adderall 10 mg 1 tab per day. Please call when ready. documented in this encounter Plan of Treatment Upcoming Encounters Date Type Department Care Team (Late st Contact Info) Description 06/08/2024 13:30 EDT Office Visit [facility] [address] [facility] [address] [place] [address] Michelle Shannon MD [address] [place] [phone] documented as of this encounter Visit Diagnoses Not on filedocumented in this encounter Discontinued Medications Medication Sig Discontinue Reason Start Date End Da te dextroamphetamine-amphe tamine (ADDERALL XR) 20 mg XR capsule Take 1 Cap by mouth 2 times daily Earliest Fill Date: 05/22/15 Daily Max: 2 Caps Reorder 05/22/2015 06/25/2015 dextroamphetamine-amphe tamine (ADDERALL) 10 mg tablet One tab by mouth in the afternoon as needed. Reorder 04/23/2015 06/25/2015 documented as of this encounter Care Teams Oven Attendant Relationship Specialty Start Date End Date Michelle Shannon MD [address] [place] [phone] PCP - General 09/08/11 documented as of this encounter
--- OUTSIDE RECORDS SUMMARY | 2024-04-28 15:59 | XMS_ITS | Encounter Summary ---
Author Organization [facility] Address [address] [place] [address] Care Team Providers Care Building Surveyor Name Role Phone Michelle Shannon MD Primary Care Provider + Encounter Details Date Type Department Care Team (Late st Contact Info) Description 07/29/2014 14:44 EST - 07/29/2014 23:59 [facility] Hospital Encounter [address] [address] Romeo Ramesh [facility] [address] [place] [phone] Discharge Disposition: Home or Self Care [...] as of this encounter Discharge Diagnoses Diagnosis 296.33 RECURR MAJOR DEPRESSIVE DISORDER[ICD-9-CM] documented in this encounter Medications at Time of Discharge Medication Sig Dispensed Refills Start Date End Date nljaiym-yttjuhqziextg-qq ffeine (EXCEDRIN MIGRAINE) 250-250-65 mg per tabletIndications:migrai ne Take 1 Tablet by mouth every 6 hours as needed. metroNIDAZOLE (METROGEL) 0.75 % gel Apply topically 2 times daily. aripiprazole (ABILIFY) 10 mg tablet Take 10 mg by mouth daily. 08/30/2017 clonazePAM (KLONOPIN) 1 mg tablet take 1 tablet by mouth at bedtime 30 Tab 5 01/05/2014 10/01/2014 dextroamphetamine-amphet amine (ADDERALL XR) 20 mg XR capsule Take 1 Cap by mouth 2 times daily. 60 Cap 0 07/25/2014 08/12/2014 dextroamphetamine-amphet amine (ADDERALL) 10 mg tablet Take 1 Tab by mouth daily. 30 Tab 0 07/25/2014 07/31/2014 duloxetine (CYMBALTA) 30 mg capsule Take 60 [...] Code Departure Means Destination Home or Self Shelter documented in this encounter Plan of Treatment Upcoming Encounters Date Type Department Care Team (Late st Contact Info) Description 06/08/2024 13:30 EDT Office Visit [facility] [address] [place] [address] Michelle Shannon MD [address] [place] [phone] documented as of this encounter Visit Diagnoses Not on filedocumented in this encounter Care Teams Building Surveyor Relationship Specialty Start Date End Date Michelle Shannon MD [address] [place] [phone] PCP - General 09/08/11 documented as of this encounter
--- OUTSIDE RECORDS SUMMARY | 2024-04-28 15:59 | XMS_ITS | Encounter Summary ---
Author Organization [facility] Address [address] [place] [address] Care Team Providers Care Paint Sprayer Sandblaster Name Role Phone Michelle Shannon MD Primary Care Provider + Reason for Visit * Reason Onset Date Comments Medications Refill 09/11/2013 Encounter Details Date Type Department Care Team (Late st Contact Info) Description 09/11/2013 Telephone [facility] Sleep Program - [address] [phone] Juliana Díaz RN [address] [place] [address] Medications Refill Social History Tobacco Use Types [...] Date End Da te dextroamphetamine-amphetam ine (ADDERALL) 10 mg tablet Take 1 Tab by mouth daily. 30 Tab 0 09/11/2013 11/07/2013 dextroamphetamine-amphetam ine (ADDERALL XR) 20 mg XR capsule Take 1 Cap by mouth 2 times daily. 60 Cap 0 09/11/2013 11/07/2013 documented in this encounter Miscellaneous Notes * Telephone Encounter - Juliana Díaz RN - 09/11/2013 6993 EST Spoke with pt. Requested adderall refills be mailed to [facility] [place]. * Telephone Encounter - Juliana Díaz RN - 09/11/2013 1054 EST Left message asking patient to call me at the Sleep Center. (refills?) documented in this encounter Plan of Treatment Upcoming Encounters Date Type Department Care Team (Late st Contact Info) Description 06/08/2024 13:30 EDT Office Visit [facility] [address] [place], [place] [phone] Michelle Shannon MD [address] [place] [phone] documented as of this encounter Visit Diagnoses Not on filedocumented in this encounter Discontinued Medications Medication Sig Discontinue Reason Start Date End Da te dextroamphetamine-ampheta mine (ADDERALL XR) 20 mg XR capsule Take 1 Cap by mouth 2 times daily. Reorder 07/31/2013 09/11/2013 dextroamphetamine-ampheta mine (ADDERALL) 10 mg tablet Take 1 Tab by mouth daily. Reorder 07/31/2013 09/11/2013 documented as of this encounter Care Teams Paint Sprayer Sandblaster Relationship Specialty Start Date End Date Michelle Shannon MD [address] [place] [phone] PCP - General 09/08/11 documented as of this encounter
--- OUTSIDE RECORDS SUMMARY | 2024-04-28 15:59 | XMS_ITS | Encounter Summary ---
Author Organization [facility] Address [address] [place] [address] Care Team Providers Care Material Scheduler Name Role Phone Michelle Shannon MD Primary Care Provider + Reason for Visit * Reason Onset Date Comments Medications Refill 02/04/2014 Encounter Details Date Type Department Care Team (Late st Contact Info) Description 02/04/2014 Telephone [facility] Sleep Program - [address] [phone] [place] [address] Medications Refill Social History Tobacco Use Types [...] Telephone Encounter - Juliana Díaz RN - 02/04/2014 0849 EDT Called pt and let her know she had called on 01/21 and her prescriptions (for Adderall) are 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 * Telephone Encounter - Geo Sharma - 02/04/2014 0840 EDT Calling to request a refill of Adderall to be picked up on Tuesday. Please call when ready. documented in this encounter Plan of Treatment Upcoming Encounters Date Type Department Care Team (Late st Contact Info) Description 06/08/2024 13:30 EDT Office Visit [facility] [address] [place], [place] [phone] Michelle Shannon MD [address] [place] [phone] documented as of this encounter Visit Diagnoses Not on filedocumented in this encounter Care Teams Material Scheduler Relationship Specialty Start Date End Date Michelle Shannon MD [address] [place] [phone] PCP - General 09/08/11 documented as of this encounter
--- OUTSIDE RECORDS SUMMARY | 2024-04-28 15:59 | XMS_ITS | Encounter Summary ---
Author Organization [facility] Address [address] [place] [address] Care Team Providers Care Hand Turner Name Role Phone Michelle Shannon MD Primary Care Provider + Reason for Visit * Reason Onset Date Comments Other 07/11/2013 Encounter Details Date Type Department Care Team (Late st Contact Info) Description 07/11/2013 Telephone [facility] 1 [place], [place] [phone] Kerry Doss [facility] 1 [facility], [address] [place] [phone] Other Social History Tobacco Use Types Packs/Day [...] Info) Description 06/08/2024 13:30 EDT Office Visit [facility] [address] [place] [address] Michelle Shannon MD [address] [place] [phone] documented as of this encounter Visit Diagnoses Not on filedocumented in this encounter Care Teams Hand Turner Relationship Specialty Start Date End Date Michelle Shannon MD [address] [place] [phone] PCP - General 09/08/11 documented as of this encounter
--- OUTSIDE RECORDS SUMMARY | 2024-04-28 15:59 | XMS_ITS | Encounter Summary ---
Author Organization [facility] Address [address] [place] [address] Care Team Providers Care Defense Travel Administrator Name Role Phone Michelle Shannon MD Primary Care Provider + Reason for Visit * Reason Onset Date Comments Other 07/06/2013 Encounter Details Date Type Department Care Team (Late st Contact Info) Description 07/06/2013 Telephone [facility] [address] [place], [place] [phone] Kerry Doss [facility] 1 [facility], [address] [place] [phone] Other Social History Tobacco Use [...] Info) Description 06/08/2024 13:30 EDT Office Visit [facility] [address] [place] [address] Michelle Shannon MD [address] [place] [phone] documented as of this encounter Visit Diagnoses Not on filedocumented in this encounter Care Teams Defense Travel Administrator Relationship Specialty Start Date End Date Michelle Shannon MD [address] [place] [phone] PCP - General 09/08/11 documented as of this encounter
--- OUTSIDE RECORDS SUMMARY | 2024-04-28 15:59 | XMS_ITS | Encounter Summary ---
Author Organization [facility] Address [address] [place] [address] Care Team Providers Care Chain Carrier Name Role Phone Michelle Shannon MD Primary Care Provider + Reason for Visit * Reason Onset Date Comments Medications Refill 08/12/2014 Encounter Details Date Type Department Care Team (Late st Contact Info) Description 08/12/2014 Telephone [facility] - [address] [id number] Juliana Díaz RN [address] [place] [address] Medications Refill Social History Tobacco Use Types [...] Date: 08/23/14 60 Cap 0 08/23/2014 10/18/2014 documented in this encounter Miscellaneous Notes * Telephone Encounter - Juliana Díaz RN - 08/13/2014 1007 EST Left message for pt to let know (adderall) prescription ready for [facility]er [facility]. 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 documented in this encounter Plan of Treatment Upcoming Encounters Date Type Department Care Team (Late st Contact Info) Description 06/08/2024 13:30 EDT Office Visit [facility] [address] [place] [address] Michelle Shannon MD [address] [place] [phone] documented as of this encounter Visit Diagnoses Not on filedocumented in this encounter Discontinued Medications Medication Sig Discontinue Reason Start Date End Da te dextroamphetamine-ampheta mine (ADDERALL XR) 20 mg XR capsule Take 1 Cap by mouth 2 times daily. Reorder 07/25/2014 08/12/2014 documented as of this encounter Care Teams Chain Carrier Relationship Specialty Start Date End Date Michelle Shannon MD [address] [place] [phone] PCP - General 09/08/11 documented as of this encounter
--- OUTSIDE RECORDS SUMMARY | 2024-04-28 15:59 | XMS_ITS | Encounter Summary ---
Author Organization [facility] Address [address] [place] [address] Care Team Providers Care Power Line Installer And Repairer Name Role Phone Michelle Shannon MD Primary Care Provider + Reason for Visit * Reason Onset Date Comments DME 09/24/2013 Encounter Details Date Type Department Care Team (Late st Contact Info) Description 09/24/2013 Telephone [facility] Sleep Program - [address] [phone] [place] [address] DME Social History Tobacco Use Types Packs/Day Years [...] tablet by mouth at bedtime. 30 Tab 1 09/24/2013 01/05/2014 documented in this encounter Miscellaneous Notes * Telephone Encounter - Juliana Díaz RN - 09/24/2013 1043 EST Called in clonazepam refills to [facility] in [place], [place]. * Telephone Encounter - Geo Sharma - 09/24/2013 1032 EST Calling to request a refill of Klonopin to be called into [facility] in [place]. documented in this encounter Plan of Treatment Upcoming Encounters Date Type Department Care Team (Late st Contact Info) Description 06/08/2024 13:30 EDT Office Visit [facility] [address] [place] [address] Michelle Shannon MD [address] [place] [phone] documented as of this encounter Visit Diagnoses Not on filedocumented in this encounter Discontinued Medications Medication Sig Discontinue Reason Start Date End Da te clonAZEPAM (KLONOPIN) 1 mg tablet Take 1 tablet by mouth at bedtime. Reorder 01/17/2013 09/24/2013 documented as of this encounter Care Teams Power Line Installer And Repairer Relationship Specialty Start Date End Date Michelle Shannon MD [address] [place] [phone] PCP - General 09/08/11 documented as of this encounter
--- OUTSIDE RECORDS SUMMARY | 2024-04-28 15:59 | XMS_ITS | Encounter Summary ---
Author Organization [facility] Address [address] [place] [address] Care Team Providers Care Ingredient Specialist Name Role Phone Michelle Shannon MD Primary Care Provider + Reason for Visit * Reason Comments Depression Anxiety Encounter Details Date Type Department Care Team (Late st Contact Info) Description 07/18/2013 12:30 EDT Office Visit [facility] 1 [place], [place] [address] Rosemary Hussein MD 1 [facility], Level [address] [place] [address] Bipolar disorder, unspecified (HCC-CMS) (Primary Dx) Social History Tobacco Use [...] Info) Description 06/08/2024 13:30 EDT Office Visit [facility] [address] [place], [place] [phone] Michelle Shannon MD [address] [place] [phone] documented as of this encounter Visit Diagnoses Diagnosis Bipolar disorder, unspecified ([facility])- Primary Bipolar disorder, unspecified documented in this encounter Care Teams Ingredient Specialist Relationship Specialty Start Date End Date Michelle Shannon MD [address] [place] [phone] PCP - General 09/08/11 documented as of this encounter
--- OUTSIDE RECORDS SUMMARY | 2024-04-28 15:59 | XMS_ITS | Encounter Summary ---
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); RBD (REM [...] Sign Reading Time Taken Comments Blood Pressure 112/68 07/31/2014 1443 EST Pulse 87 07/31/2014 1443 EST Temperature - - Respiratory Rate 16 07/31/2014 1443 EST Oxygen Saturation 99% 07/31/2014 1443 EST Inhaled Oxygen Concentration - - Weight 68.9 kg (152 lb) 07/31/2014 1443 EST Height 165.1 cm (5' 5) 07/31/2014 1443 EST Body Mass Index 25.29 07/31/2014 1443 EST documented in this encounter Discharge Diagnoses Diagnosis 347.00 NARCOLEPSY, WITHOUT CATAPLEXY[ICD-9-CM] 327.42 REM SLEEP BEHAVIOR DISORDER[ICD-9-CM] documented in this encounter Discharge Disposition Disposition Code Departure Means Destination Auto Discharge documented in this encounter Progress Notes * Dean Turner MD - 08/01/2014 1205 EST [facility] PROGRESS / FOLLOWUP NOTE - 07/31/2014 SUBJECTIVE: Ms Blair returns today for followup regarding narcolepsy without cataplexy and REM sleep behavior disorder. The patient reports her symptoms have been pretty stable over the past year. She has recently re-enrolled at the [employer] full day program. She notes that Dr Aparicio had wondered if she could wean a bit on her Adderall dosing given her issues with tremor. Right now she is taking Adderall 20 mg extended release twice daily and has dropped the 10 mg immediate release dose, but has been pretty tired in the afternoons. The psychiatry team had mentioned the possibility of Provigil, which the patient is pretty reticentabout given the fact that her symptoms have been relatively well controlled on Adderall. The patient is typically going to bed around 8:30 and waking up around 6:30 a.m. She is sleeping through the night pretty well and is not having significant symptoms of REM sleep behavior disorder using her current clonazepam dosing. She is not taking regular daytime naps. She is not currently employed, but is looking toward this possibly through the [employer] program, initiating a part-time job. The patient reports no other major interval changes in health or medication, which are reviewed in the electronic medical record. OBJECTIVE: Blood pressure 112/68, pulse 87. Weight 152 pounds, height 65 inches. General exam reveals an alert, pleasant woman. Oropharynx: Mallampati IV with pink mucosa. Neck: Supple, no lymphadenopathy. Chest clear to auscultation bilaterally. Cardiovascular: Regular rate and rhythm, no murmurs. 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 Generally, her symptoms are pretty well controlled. There is an interest in weaning her off of Adderall and trialing a different stimulant, but thepatient is pretty reticent about this. We talked today about the side effects of Provigil, and in particular she was quite concerned that Provigil or Nuvigil may reduce the effectiveness of oral contraceptive therapy and felt this made this a nonoption for her in regard to changing her stimulant medications. PLAN: 1. Narcolepsy without cataplexy: We will continue with the Adderall-XR 20 mg twice daily at this point, but I am happy to discuss her stimulant dosing with the outpatient psychiatry team. At this point the patient is pretty reticent about changing her stimulant medication. 2. REM sleep behavior disorder: The patient has not had any significant changes in symptoms of RBD,and we will continue with clonazepam 1 mg at bedtime going forward. We have yearly followup in place, and I asked the patient to call sooner with questions or concerns. In particular, there is consideration regarding a change in stimulant dosing. We did discuss that intermittent napping could replace the quantity of her Adderall dose, but the patient was not certain this would be helpful either. Dean Turner MD 03 09 PM - Dean Turner MD cn Dictation ID: [id number] cc: Michelle Shannon MD, [address], [facility], [place] [address] * Dean Turner MD - 07/31/2014 1509 EST This office note has been dictated. documented in this encounter Plan of Treatment Upcoming Encounters Date Type Department Care Team (Late st Contact Info) Description 06/08/2024 13:30 EDT Office Visit [facility] 550 [facility] 201 [place] [address] Michelle Shannon MD [address] [place] [phone] documented as of this encounter Visit Diagnoses Diagnosis Narcolepsy without cataplexy- Primary RBD (REM behavioral disorder) REM sleep behavior disorder documented in this encounter Historical Medications * This list may reflect changes made after this encounter. Medication Sig Dispensed Refills Start Date End Date Azelaic Acid (FINACEA) 15 % gel Apply topically 2 times daily. 02/06/2021 added in this encounter Care Teams Lead Pourer Relationship Specialty Start Date End Date Michelle Shannon MD [address] [place] [phone] PCP - General 09/08/11 documented as of this encounter
--- OUTSIDE RECORDS SUMMARY | 2024-04-28 15:59 | XMS_ITS | Encounter Summary ---
Author Organization [facility] Address [address] [place] [address] Care Team Providers Care Production Machine Shop Supervisor Name Role Phone Michelle Shannon MD Primary Care Provider + Reason for Visit * Reason Comments Depression Encounter Details Date Type Department Care Team (Late st Contact Info) Description 08/09/2014 8:30 EST Office Visit [facility] 1 [place], [place] [phone] Rosemary Hussein MD 1 [facility], [facility] 6 [place] [phone] MDD (major depressive disorder), recurrent episode, moderate [...] Info) Description 06/08/2024 13:30 EDT Office Visit [facility] [address] [place] [address] [place] [address] Michelle Shannon MD [address] [place] [phone] documented as of this encounter Visit Diagnoses Diagnosis MDD (major depressive disorder), recurrent episode, moderate ([facility])- Primary Major depressive disorder, recurrent episode, moderate documented in this encounter Care Teams Production Machine Shop Supervisor Relationship Specialty Start Date End Date Michelle Shannon MD [address] [place] [phone] PCP - General 09/08/11 documented as of this encounter
--- OUTSIDE RECORDS SUMMARY | 2024-04-28 15:59 | XMS_ITS | Encounter Summary ---
Author Organization [facility] Address [address] [place] [address] Care Team Providers Care Axle Bearing Polisher Name Role Phone Michelle Shannon MD Primary Care Provider + Encounter Details Date Type Department Care Team (Late st Contact Info) Description 07/16/2013 Documentation Visit [facility] 1 [place], [place] [address] Kerry Doss [facility] 1 [facility], Level [address] [place] [address] Social History Tobacco Use Types [...] Info) Description 06/08/2024 13:30 EDT Office Visit [facility] [address] [place], [place] [phone] Michelle Shannon MD [address] [place] [phone] documented as of this encounter Visit Diagnoses Not on filedocumented in this encounter Care Teams Axle Bearing Polisher Relationship Specialty Start Date End Date Michelle Shannon MD [address] [place] [phone] PCP - General 09/08/11 documented as of this encounter
--- OUTSIDE RECORDS SUMMARY | 2024-04-28 15:59 | XMS_ITS | Encounter Summary ---
Author Organization [facility] Address [address] [place] [address] Care Team Providers Care Process Controls Technician Name Role Phone Michelle Shannon MD Primary Care Provider + Encounter Details Date Type Department Care Team (Late st Contact Info) Description 08/06/2014 Documentation Visit [facility] 1 [place], [place] [address] Ankit Goldstein [facility] 1 [facility], Level [address] [place] [phone] Social History Tobacco Use Types Packs/Day Years [...] Info) Description 06/08/2024 13:30 EDT Office Visit [facility] [address] [place], [place] [phone] Michelle Shannon MD [address] [place] [phone] documented as of this encounter Visit Diagnoses Not on filedocumented in this encounter Care Teams Process Controls Technician Relationship Specialty Start Date End Date Michelle Shannon MD [address] [place] [phone] PCP - General 09/08/11 documented as of this encounter
--- OUTSIDE RECORDS SUMMARY | 2024-04-28 15:59 | XMS_ITS | Encounter Summary ---
Author Organization [facility] Address [address] [place] [address] Care Team Providers Care Roll Up Operator Name Role Phone Michelle Shannon MD Primary Care Provider + Reason for Visit * Reason Comments Depression Anxiety Encounter Details Date Type Department Care Team (Late st Contact Info) Description 08/07/2014 8:30 EST Office Visit [facility] 1 [place], [place] [address] Rosemary Hussein MD 1 [facility], [facility] 6 [place] [address] MDD (major depressive disorder) (Primary Dx); Hyperlipidemia; MDD (major depressive disorder), recurrent episode, moderate (CMS-HCC) Social History Tobacco Use Types Packs/Day Years [...] Info) Description 06/08/2024 13:30 EDT Office Visit [facility] [address] [place] [address] Michelle Shannon MD [address] [place] [phone] documented as of this encounter Results * LIPID PROFILE (INCLUDES CHOLESTEROL, TRIGLYCERIDES, HDL, LDL) (08/13/2014 8:09 EST) Cholesterol 162 mg/dl 08/13/2014 11:22 [facility] Comment: Desirable:<200 Borderline High:200-239 High:>hy=373 Triglycerides 135 mg/dl 08/13/2014 11:22 [facility] Comment: Normal:<150 Borderline High:150-199 High:200-499 Very High:>ui=139 HDL 39 mg/dl 08/13/2014 11:22 [facility] Comment: Low:<40 Normal:40-60 Desirable: >60 LDL, Calculated 96 mg/dl 4 11:22 [facility] Comment: Optimal:<100 Near Optimal:100-129 Borderline High:130-159 High:160-189 Very High:>xi=419 Chol/HDL Ratio 4.2 08/13/2014 11:22 [facility] Fasting? No 08/13/2014 8:09 [facility] Non HDL Cholesterol 123 mg/dl 08/13/2014 11:22 [facility] Comment: Desirable:<130 Borderline:130-159 High: 160-189 Very High: >uu=226 Blood specimen (specimen) BLOOD SPECIMEN / Unknown 08/13/2014 8:09 EST 08/13/2014 10:03 EST Rosemary Hussein MD CHEMISTR Y & BLOOD GAS ORDERABLES [facility] [address] [place] [address] * (ABNORMAL) COMPREHENSIVE METABOLIC PANEL (CMP) (08/13/2014 8:09 EST) Potassium 4.0 3.5 - 5.0 mEq/L 08/13/2014 11:22 [facility] Sodium 141 136 - 145 mEq/L 08/13/2014 11:22 [facility] Chloride 104 96 - 110 mEq/L 08/13/2014 11:22 [facility] CO2 22(L) 24 - 32 mEq/L 08/13/2014 11:22 [facility] Total Alkaline Phosphatase 85 38 - 126 U/L 08/13/2014 11:22 [facility] Bilirubin, Total 0.6 <1.4 mg/dl 08/13/20 14 11:22 [facility] AST 16 15 - 46 U/L 08/13/2014 11:22 [facility] ALT 21 <53 U/L 08/13/2014 11:22 [facility] Albumin 4.0 3.4 - 4.9 g/dl 08/13/2014 11:22 [facility] Total Protein 6.8 6.5 - 8.3 g/dl 08/13/2014 11:22 [facility] Creatinine 0.96 0.52 - 1.04 mg/dl 08/13/2014 11:22 [facility] GFR, Calculated >60 >60 ml/min/1.7 3m2 08/13/2014 11:22 [facility] BUN 17 10 - 26 mg/dl 08/13/2014 11:22 [facility] Calcium 9.5 8.5 - 10.5 mg/dl 08/13/2014 11:22 [facility] Calculated Calcium 9.9 8.5 - 10.5 mg/dl 08/13/2014 11:22 [facility] Glucose, Serum 88 70 - 100 mg/dl 08/13/2014 11:22 [facility] Fasting? No 08/13/2014 8:09 [facility] Blood specimen (specimen) BLOOD SPECIMEN / Unknown 08/13/2014 8:09 EST 08/13/2014 10:03 EST Rosemary Hussein MD CHEMISTR Y & BLOOD GAS ORDERABLES [facility] [address] [place] [address] documented in this encounter Visit Diagnoses Diagnosis MDD (major depressive disorder)- Primary Major depressive disorder, single episode, unspecified Hyperlipidemia Other and unspecified hyperlipidemia MDD (major depressive disorder), recurrent episode, moderate ([facility]) Major depressive disorder, recurrent episode, moderate documented in this encounter Care Teams Roll Up Operator Relationship Specialty Start Date End Date Michelle Shannon MD [address] [place] [phone] PCP - General 09/08/11 documented as of this encounter
--- OUTSIDE RECORDS SUMMARY | 2024-04-28 15:59 | XMS_ITS | Encounter Summary ---
Author Organization [facility] Address [address] [place] [address] Care Team Providers Care Insurance Assistant Name Role Phone Michelle Shannon MD Primary Care Provider + Encounter Details Date Type Department Care Team (Late st Contact Info) Description 07/25/2014 Documentation Visit [facility] 1 [place], [place] [phone] Milla Orozco [facility] 1 [facility], Level 6 [place] [address] Social History Tobacco Use Types [...] Info) Description 06/08/2024 13:30 EDT Office Visit [facility] 550 [facility] [address] [place], [place] [phone] Michelle Shannon MD [address] [place] [phone] documented as of this encounter Visit Diagnoses Not on filedocumented in this encounter Care Teams Insurance Assistant Relationship Specialty Start Date End Date Michelle Shannon MD [address] [place] [phone] PCP - General 09/08/11 documented as of this encounter
--- OUTSIDE RECORDS SUMMARY | 2024-04-28 15:59 | XMS_ITS | Encounter Summary ---
Author Organization [facility] Address [address] [place] [address] Care Team Providers Care Pitch Flaker Name Role Phone Michelle Shannon MD Primary Care Provider + Reason for Visit * Reason Onset Date Comments Other 07/17/2013 Encounter Details Date Type Department Care Team (Late st Contact Info) Description 07/17/2013 Telephone [facility] 1 [place], [place] [phone] Kerry Doss [facility] 1 [facility], Level [address] [place] [address] Other Social History Tobacco Use [...] Info) Description 06/08/2024 13:30 EDT Office Visit [facility] [address] [place] [address] Michelle Shannon MD [address] [place] [phone] documented as of this encounter Visit Diagnoses Not on filedocumented in this encounter Care Teams Pitch Flaker Relationship Specialty Start Date End Date Michelle Shannon MD [address] [place] [phone] PCP - General 09/08/11 documented as of this encounter
--- OUTSIDE RECORDS SUMMARY | 2024-04-28 15:59 | XMS_ITS | Encounter Summary ---
Author Organization [facility] Address [address] [place] [address] Care Team Providers Care Guest Experience Manager Name Role Phone Michelle Shannon MD Primary Care Provider + Reason for Visit * Reason Onset Date Comments Other 07/04/2013 Encounter Details Date Type Department Care Team (Late st Contact Info) Description 07/04/2013 Telephone [facility] 1 [place], [place] [phone] Kerry Doss [facility] 1 [facility], Level [address] [place] [address] Other Social History Tobacco Use [...] Description 06/08/2024 13:30 EDT Office Visit [facility] [address] [place] [address] Michelle Shannon MD [address] [place] [phone] documented as of this encounter Visit Diagnoses Not on filedocumented in this encounter Care Teams Guest Experience Manager Relationship Specialty Start Date End Date Michelle Shannon MD [address] [place] [phone] PCP - General 09/08/11 documented as of this encounter
--- OUTSIDE RECORDS SUMMARY | 2024-04-28 15:59 | XMS_ITS | Encounter Summary ---
Author Organization [facility] Address [address] [place] [address] Care Team Providers Care Crusher Tender Name Role Phone Michelle Shannon MD Primary Care Provider + Reason for Visit * Reason Onset Date Comments Other 07/17/2013 Encounter Details Date Type Department Care Team (Late st Contact Info) Description 07/17/2013 Telephone [facility] 1 [place], [place] [phone] Kerry Doss [facility] 1 [facility], Level [address] [place] [phone] Other Social History Tobacco Use [...] Info) Description 06/08/2024 13:30 EDT Office Visit [facility] [address] [place] [address] Michelle Shannon MD [address] [place] [phone] documented as of this encounter Visit Diagnoses Not on filedocumented in this encounter Care Teams Crusher Tender Relationship Specialty Start Date End Date Michelle Shannon MD [address] [place] [phone] PCP - General 09/08/11 documented as of this encounter
--- OUTSIDE RECORDS SUMMARY | 2024-04-28 15:59 | XMS_ITS | Encounter Summary ---
Author Organization [facility] Address [address] [place] [address] Care Team Providers Care Churn Driller Helper Name Role Phone Michelle Shannon MD Primary Care Provider + Reason for Visit * Reason Onset Date Comments Other 07/05/2013 Encounter Details Date Type Department Care Team (Late st Contact Info) Description 07/05/2013 Telephone [facility] 1 [place], [place] [phone] Kerry Doss [facility] 1 [facility], Level [address] [place] [address] Other Social History Tobacco Use [...] Info) Description 06/08/2024 13:30 EDT Office Visit [facility] [address] [place] [address] Michelle Shannon MD [address] [place] [phone] documented as of this encounter Visit Diagnoses Not on filedocumented in this encounter Care Teams Churn Driller Helper Relationship Specialty Start Date End Date Michelle Shannon MD [address] [place] [phone] PCP - General 09/08/11 documented as of this encounter
--- OUTSIDE RECORDS SUMMARY | 2024-04-28 15:59 | XMS_ITS | Encounter Summary ---
Author Organization [facility] Address [address] [place] [address] Care Team Providers Care Vat Packer Name Role Phone Michelle Shannon MD Primary Care Provider + Encounter Details Date Type Department Care Team (Late st Contact Info) Description 08/08/2014 Documentation Visit [facility] 1 [place], [place] [phone] Milla Orozco [facility] 1 [facility], Level 6 [place] [address] Social History Tobacco Use Types [...] Info) Description 06/08/2024 13:30 EDT Office Visit [facility] 550 [facility] [address] [place], [place] [phone] Michelle Shannon MD 28 [place] [phone] documented as of this encounter Visit Diagnoses Not on filedocumented in this encounter Care Teams Vat Packer Relationship Specialty Start Date End Date Michelle Shannon MD [address] [place] [phone] PCP - General 09/08/11 documented as of this encounter
--- OUTSIDE RECORDS SUMMARY | 2024-04-28 15:59 | XMS_ITS | Encounter Summary ---
Author Organization [facility] Address [address] [place] [address] Care Team Providers Care Drain Cleaner Name Role Phone Michelle Shannon MD Primary Care Provider + Reason for Visit * Reason Comments Depression Encounter Details Date Type Department Care Team (Late st Contact Info) Description 06/22/2013 9:30 EDT Office Visit [facility] 1 [place], [place] [address] Rosemary Hussein MD 1 [facility], [facility] 6 [place] [address] Bipolar disorder, unspecified (HCC-CMS) (Primary [...] Info) Description 06/08/2024 13:30 EDT Office Visit [facility] [address] [place], [place] [phone] Michelle Shannon MD 28 [place] [phone] documented as of this encounter Visit Diagnoses Diagnosis Bipolar disorder, unspecified ([facility])- Primary Bipolar disorder, unspecified documented in this encounter Care Teams Drain Cleaner Relationship Specialty Start Date End Date Michelle Shannon MD [address] [place] [phone] PCP - General 09/08/11 documented as of this encounter
--- OUTSIDE RECORDS SUMMARY | 2024-04-28 15:59 | XMS_ITS | Encounter Summary ---
Author Organization [facility] Address [address] [place] [address] Care Team Providers Care Private Duty Lpn Name Role Phone Michelle Shannon MD Primary Care Provider + Reason for Visit * Reason Comments Depression Encounter Details Date Type Department Care Team (Late st Contact Info) Description 07/10/2013 10:30 EDT Office Visit [facility] 1 [place], [place] [address] Rosemary Hussein MD 1 [facility], [facility] 6 [place] [address] Metabolic acidosis (Primary Dx); Bipolar disorder, unspecified ([facility]) Social History Tobacco Use Types Packs/Day Years [...] Info) Description 06/08/2024 13:30 EDT Office Visit [facility] [address] [place], [place] [phone] Michelle Shannon MD 28 [place] [phone] documented as of this encounter Results * (ABNORMAL) COMPREHENSIVE METABOLIC PANEL (CMP) (07/18/2013 8:47 EDT) Potassium 4.6 3.5 - 5.0 mEq/L [facility] Sodium 140 136 - 145 mEq/L [facility] Chloride 106 96 - 110 mEq/L [facility] CO2 22(L) 24 - 32 mEq/L [facility] Total Alkaline Phosphatase 82 38 - 126 U/L [facility] Bilirubin, Total <0.5 0.2 - 1.3 mg/dl [facility] AST 16 15 - 46 U/L [facility] ALT 28 9 - 52 U/L [facility] Albumin 3.8 3.4 - 4.9 g/dl [facility] Total Protein 6.7 6.5 - 8.3 g/dl [facility] Creatinine 0.77 0.52 - 1.04 mg/dl [facility] GFR, Calculated >60 >60 ml/min/1.7 3m2 [facility] BUN 12 10 - 26 mg/dl [facility] Calcium 9.4 8.5 - 10.5 mg/dl [facility] Calculated Calcium 10.0 8.5 - 10.5 mg/dl [facility] Glucose, Serum 98 70 - 100 mg/dl [facility] Fasting? YES [facility] Blood specimen (specimen) 07/18/2013 8:47 EDT 07/18/2013 10:13 EDT Rosemary Hussein MD CHEMISTR Y & BLOOD GAS ORDERABLES [facility] [address] [place] [address] documented in this encounter Visit Diagnoses Diagnosis Metabolic acidosis- Primary Acidosis Bipolar disorder, unspecified (HCC-CMS) Bipolar disorder, unspecified documented in this encounter Discontinued Medications Medication Sig Discontinue Reason Start Date End Da te HYDROmorphone (DILAUDID) 2 mg tablet Take 2 mg by mouth every 6 hours as needed. Therapy completed 07/10/2013 documented as of this encounter Care Teams Private Duty Lpn Relationship Specialty Start Date End Date Michelle Shannon MD [address] [place] [phone] PCP - General 09/08/11 documented as of this encounter
--- OUTSIDE RECORDS SUMMARY | 2024-04-28 15:59 | XMS_ITS | Encounter Summary ---
Author Organization [facility] Address [address] [place] [address] Care Team Providers Care Stem Assembler Name Role Phone Michelle Shannon MD Primary Care Provider + Reason for Visit * Reason Onset Date Comments Follow-up 07/17/2014 Encounter Details Date Type Department Care Team (Late Contact Info) Description 07/17/2014 Telephone [facility] 1 [place], [place] [phone] Ceci Alcantara Follow-up Social History Tobacco Use Types Packs/Day [...] Info) Description 06/08/2024 13:30 EDT Office Visit [facility] 550 [facility] 201 [place], [place] [phone] Michlele Shannon MD 28 [place] [phone] documented as of this encounter Visit Diagnoses Not on filedocumented in this encounter Care Teams Stem Assembler Relationship Specialty Start Date End Date Michelle Shannon MD 28 [place] [phone] PCP - General 09/08/11 documented as of this encounter
--- OUTSIDE RECORDS SUMMARY | 2024-04-28 15:59 | XMS_ITS | Encounter Summary ---
Author Organization [facility] Address [address] [place] [address] Care Team Providers Care Clinical Research Nurse Coordinator Name Role Phone Michelle Shannon MD Primary Care Provider + Reason for Visit * Reason Comments Anxiety Depression Encounter Details Date Type Department Care Team (Late st Contact Info) Description 07/31/2014 8:30 EST Office Visit [address] [phone] Rosemary Hussein MD 1 [facility], Level 6 [place] [phone] MDD (major depressive disorder), recurrent episode, moderate [...] Dispensed Refills Start Date End Da te cloNIDine HCl (CATAPRES) 0.1 mg tablet Take 1 Tab by mouth 2 times daily. 30 Tab 0 07/31/2014 08/14/2014 documented in this encounter Plan of Treatment Upcoming Encounters Date Type Department Care Team (Late st Contact Info) Description 06/08/2024 13:30 EDT Office Visit [facility] [address] [place] [address] Michelle Shannon MD 28 [place] [phone] documented as of this encounter Visit Diagnoses Diagnosis MDD (major depressive disorder), recurrent episode, moderate ([facility])- Primary Major depressive disorder, recurrent episode, moderate documented in this encounter Discontinued Medications Medication Sig Discontinue Reason Start Date End Da te dextroamphetamine-ampheta mine (ADDERALL) 10 mg tablet Take 1 Tab by mouth daily. Therapy completed 07/25/2014 07/31/2014 documented as of this encounter Care Teams Clinical Research Nurse Coordinator Relationship Specialty Start Date End Date Michelle Shannon MD [address] [place] [phone] PCP - General 09/08/11 documented as of this encounter
--- OUTSIDE RECORDS SUMMARY | 2024-04-28 15:59 | XMS_ITS | Encounter Summary ---
Author Organization [facility] Address [address] [place] [address] Care Team Providers Care Slurry Control Operator Helper Name Role Phone Michelle Shannon MD Primary Care Provider + Encounter Details Date Type Department Care Team (Late st Contact Info) Description 06/26/2013 8:57 EDT - 06/26/2013 23:59 EDT Hospital Encounter [address] [address] Tanya Epperson MD 111 [facility] Level 4 [place] [address] Discharge Disposition: Home or Self [...] Sig Dispensed Refills Start Date End Date elxjfks-xhpsctqugkslq-nq ffeine (EXCEDRIN MIGRAINE) 250-250-65 mg per tabletIndications:migrai ne Take 1 Tablet by mouth every 6 hours as needed. metroNIDAZOLE (METROGEL) 0.75 % gel Apply topically 2 times daily. aripiprazole (ABILIFY) 10 mg tablet Take 10 mg by mouth daily. 08/30/2017 clonAZEPAM (KLONOPIN) 1 mg tablet Take 1 tablet by mouth at bedtime. 30 Tab 5 01/17/2013 09/24/2013 dextroamphetamine-amphet amine (ADDERALL XR) 20 mg XR capsule Take 1 Cap by mouth 2 times daily. 60 Cap 0 06/20/2013 07/31/2013 duloxetine (CYMBALTA) 30 mg capsule Take 60 mg by mouth daily. 06/19/2010 09/16/2017 HYDROmorphone (DILAUDID) 2 mg tablet Take 2 mg by mouth every 6 hours as needed. 07/10/2013 IBUPROFEN (ADVIL ORAL) Take by mouth daily [...] Code Departure Means Destination Home or Self Jail documented in this encounter Miscellaneous Notes * Scanned Note-Null - GAS LOAD DISPATCHER, SCAN 2 - 06/29/2013 0801 EDT * Scanned Note-Null - GAS LOAD DISPATCHER, SCAN 2 - 06/29/2013 0800 EDT * Scanned Note-Null - GAS LOAD DISPATCHER, SCAN 2 - 06/29/2013 0759 EDT * Scanned Note-Null - GAS LOAD DISPATCHER, SCAN 2 - 06/29/2013 0722 EDT documented in this encounter Plan of Treatment Upcoming Encounters Date Type Department Care Team (Late st Contact Info) Description 06/08/2024 13:30 EDT Office Visit [facility] [address] [place], [place] [phone] Michelle Shannon MD [address] [place] [phone] documented as of this encounter Visit Diagnoses Not on filedocumented in this encounter Care Teams Slurry Control Operator Helper Relationship Specialty Start Date End Date Michelle Shannon MD [address] [place] [phone] PCP - General 09/08/11 documented as of this encounter
--- OUTSIDE RECORDS SUMMARY | 2024-04-28 15:59 | XMS_ITS | Encounter Summary ---
Author Organization [facility] Address [address] [place] [address] Care Team Providers Care Forest Fire Prevention Manager Name Role Phone Michelle Shannon MD Primary Care Provider + Encounter Details Date Type Department Care Team (Late st Contact Info) Description 06/28/2013 Documentation Visit [facility] 1 [place], [place] [phone] Kerry Doss [facility] 1 [facility], Level 6 [place] [address] Social History Tobacco Use Types [...] Description 06/08/2024 13:30 EDT Office Visit [facility] [address] [place] [address] Michelle Shannon MD 28 [place] [phone] documented as of this encounter Visit Diagnoses Not on filedocumented in this encounter Care Teams Forest Fire Prevention Manager Relationship Specialty Start Date End Date Michelle Shannon MD [address] [place] [phone] PCP - General 09/08/11 documented as of this encounter
--- OUTSIDE RECORDS SUMMARY | 2024-04-28 15:59 | XMS_ITS | Encounter Summary ---
Author Organization [facility] Address [address] [place] [address] Care Team Providers Care Fugitive Detective Name Role Phone Michelle Shannon MD Primary Care Provider + Reason for Visit * Reason Onset Date Comments Other 07/06/2013 Encounter Details Date Type Department Care Team (Late st Contact Info) Description 07/06/2013 Telephone [facility] 1 [place], [place] [phone] Kerry Doss [facility] 1 [facility], Level 6 [place] [address] Other Social History Tobacco Use [...] Info) Description 06/08/2024 13:30 EDT Office Visit [facility] [address] [place] [address] Michelle Shannon MD 28 [place] [phone] documented as of this encounter Visit Diagnoses Not on filedocumented in this encounter Care Teams Fugitive Detective Relationship Specialty Start Date End Date Michelle Shannon MD [address] [place] [phone] PCP - General 09/08/11 documented as of this encounter
--- OUTSIDE RECORDS SUMMARY | 2024-04-28 15:59 | XMS_ITS | Encounter Summary ---
Author Organization [facility] Address [address] [place] [address] Care Team Providers Care Student Services Representative Name Role Phone Michelle Shannon MD Primary Care Provider + Encounter Details Date Type Department Care Team (Late st Contact Info) Description 07/18/2013 8:44 EDT - 07/18/2013 23:59 EDT Hospital Encounter [address] [address] Rosemary Hussein MD [address] [place] [address], [facility] 6 [place] [phone] Discharge Disposition: Home or Self Care Social [...] as of this encounter Discharge Diagnoses Diagnosis 276.2 ACIDOSIS[ICD-9-CM] documented in this encounter Medications at Time of Discharge Medication Sig Dispensed Refills Start Date End Date vhejnxb-nbenvyttplliv-rc ffeine (EXCEDRIN MIGRAINE) 250-250-65 mg per tabletIndications:migrai [...] times daily. 60 Cap 0 06/20/2013 07/31/2013 dextroamphetamine-amphet amine (ADDERALL) 10 mg tablet Take 1 Tab by mouth daily. 30 Tab 0 06/28/2013 07/31/2013 duloxetine (CYMBALTA) 30 mg capsule Take [...] Code Departure Means Destination Home or Self [facility] documented in this encounter Plan of Treatment Upcoming Encounters Date Type Department Care Team (Late st Contact Info) Description 06/08/2024 13:30 EDT Office Visit [facility] [address] [place] [address] Michelle Shannon MD [address] [place] [phone] documented as of this encounter Visit Diagnoses Not on filedocumented in this encounter Care Teams Student Services Representative Relationship Specialty Start Date End Date Michelle Shannon MD [address] [place] [phone] PCP - General 09/08/11 documented as of this encounter
--- OUTSIDE RECORDS SUMMARY | 2024-04-28 15:59 | XMS_ITS | Encounter Summary ---
Author Organization [facility] Address [address] [place] [address] Care Team Providers Care Boat Mechanic Name Role Phone Michelle Shannon MD Primary Care Provider + Reason for Visit * Reason Onset Date Comments Coordination Of Care 07/25/2013 Encounter Details Date Type Department Care Team (Late st Contact Info) Description 07/25/2013 Telephone [facility] 1 [place], [place] [phone] [facility] 1 [facility] 6 [place] [phone] Coordination Of Care Social History Tobacco Use Types Packs/Day [...] Info) Description 06/08/2024 13:30 EDT Office Visit [facility] [address] [place], [place] [phone] Michelle Shannon MD 28 [place] [phone] documented as of this encounter Visit Diagnoses Not on filedocumented in this encounter Care Teams Boat Mechanic Relationship Specialty Start Date End Date Michelle Shannon MD [address] [place] [phone] PCP - General 09/08/11 documented as of this encounter
--- OUTSIDE RECORDS SUMMARY | 2024-04-28 15:59 | XMS_ITS | Encounter Summary ---
Author Organization [facility] Address [address] [place] [address] Care Team Providers Care Underwriting Technician Name Role Phone Michelle Shannon MD Primary Care Provider + Reason for Visit * Reason Comments Other Encounter Details Date Type Department Care Team (Late st Contact Info) Description 01/05/2014 Refill [facility] - [address] [address] [place] [address] Other Social History Tobacco Use Types Packs/Day [...] at bedtime 30 Tab 5 01/05/2014 10/01/2014 documented in this encounter Miscellaneous Notes * Telephone Encounter - Juliana Díaz RN - 01/08/2014 0902 EDT Called in clonazepam refills as prescribed to patient's pharmacy. documented in this encounter Plan of Treatment Upcoming Encounters Date Type Department Care Team (Late st Contact Info) Description 06/08/2024 13:30 EDT Office Visit [facility] [address] [place], [place] [phone] Michelle Shannon MD [address] [place] [phone] documented as of this encounter Visit Diagnoses Not on filedocumented in this encounter Discontinued Medications Medication Sig Discontinue Reason Start Date End Da te clonazePAM (KLONOPIN) 1 mg tablet Take 1 tablet by mouth at bedtime. Reorder 09/24/2013 01/05/2014 documented as of this encounter Care Teams Underwriting Technician Relationship Specialty Start Date End Date Michelle Shannon MD [address] [place] [phone] PCP - General 09/08/11 documented as of this encounter
--- OUTSIDE RECORDS SUMMARY | 2024-04-28 15:59 | XMS_ITS | Encounter Summary ---
Author Organization [facility] Address [address] [place] [address] Care Team Providers Care .Net Programmer Name Role Phone Michelle Shannon MD Primary Care Provider + Reason for Visit * Reason Onset Date Comments Medications Refill 03/12/2014 Encounter Details Date Type Department Care Team (Late st Contact Info) Description 03/12/2014 Telephone [facility] Sleep Program - [address] [phone] [place] [address] Medications Refill Social History Tobacco Use Types [...] Tab by mouth daily. 30 Tab 0 03/12/2014 05/03/2014 dextroamphetamine-amphetam ine (ADDERALL XR) 20 mg XR capsule Take 1 Cap by mouth 2 times daily. 60 Cap 0 03/12/2014 05/03/2014 documented in this encounter Miscellaneous Notes * Telephone Encounter - Juliana Díaz RN - 03/12/2014 1150 EDT Left message for pt to let know (Adderall) prescriptions ready for cigar packer and picker at the [facility]. * Telephone Encounter - Geo Sharma - 03/12/2014 1023 EDT Calling to request a refill of Adderal to be picked up. Please call when ready. documented in this encounter Plan of Treatment Upcoming Encounters Date Type Department Care Team (Late st Contact Info) Description 06/08/2024 13:30 EDT Office Visit [facility] 550 [facility] [address] [place] [address] Michelle Shannon MD [address] [place] [phone] documented as of this encounter Visit Diagnoses Not on filedocumented in this encounter Discontinued Medications Medication Sig Discontinue Reason Start Date End Da te dextroamphetamine-amphe tamine (ADDERALL XR) 20 mg XR capsule Take 1 Cap by mouth 2 times daily. Earliest Fill Date: 01/28/14 Reorder 01/28/2014 03/12/2014 dextroamphetamine-amphe tamine (ADDERALL) 10 mg tablet Take 1 Tab by mouth daily. Earliest Fill Date: 01/28/14 Reorder 01/28/2014 03/12/2014 documented as of this encounter Care Teams .Net Programmer Relationship Specialty Start Date End Date Michelle Shannon MD [address] [place] [phone] PCP - General 09/08/11 documented as of this encounter
--- OUTSIDE RECORDS SUMMARY | 2024-04-28 15:59 | XMS_ITS | Encounter Summary ---
Author Organization [facility] Address [address] [place] [address] Care Team Providers Care Inside Sales Executive Name Role Phone Michelle Shannon MD Primary Care Provider + Reason for Visit * Reason Onset Date Comments Follow-up 07/31/2014 Encounter Details Date Type Department Care Team (Late st Contact Info) Description 07/31/2014 Telephone [facility] 1 [place], [place] [address] Milla Orozco [facility] 1 [facility], Level 6 [place] [phone] Follow-up Social History Tobacco Use [...] Info) Description 06/08/2024 13:30 EDT Office Visit [facility] [address] [place] [address] Michelle Shannon MD 28 [place] [phone] documented as of this encounter Visit Diagnoses Not on filedocumented in this encounter Care Teams Inside Sales Executive Relationship Specialty Start Date End Date Michelle Shannon MD [address] [place] [phone] PCP - General 09/08/11 documented as of this encounter
--- OUTSIDE RECORDS SUMMARY | 2024-04-28 15:59 | XMS_ITS | Encounter Summary ---
Author Organization [facility] Address [address] [place] [address] Care Team Providers Care Multimedia Engineer Name Role Phone Michelle Shannon MD Primary Care Provider + Reason for Visit * Reason Onset Date Comments Other 07/16/2013 Encounter Details Date Type Department Care Team (Late st Contact Info) Description 07/16/2013 Telephone [facility] 1 [place], [place] [phone] Kerry Doss [facility] 1 [facility], Level [address] [place] [phone] Other Social History Tobacco Use [...] Info) Description 06/08/2024 13:30 EDT Office Visit [facility] [address] [place] [address] [place] [address] Michelle Shannon MD 28 [place] [phone] documented as of this encounter Visit Diagnoses Not on filedocumented in this encounter Care Teams Multimedia Engineer Relationship Specialty Start Date End Date Michelle Shannon MD [address] [place] [phone] PCP - General 09/08/11 documented as of this encounter
--- OUTSIDE RECORDS SUMMARY | 2024-04-28 15:59 | XMS_ITS | Encounter Summary ---
Author Organization [facility] Address [address] [place] [address] Care Team Providers Care Him Clerk Name Role Phone Michelle Shannon MD Primary Care Provider + Encounter Details Date Type Department Care Team (Late st Contact Info) Description 07/23/2013 Documentation Visit [facility] 1 [place], [place] [address] Ceci Alcantara Social History Tobacco Use Types Packs/Day Years [...] Info) Description 06/08/2024 13:30 EDT Office Visit [facility] 550 [facility] [address] [place] [address] Michelle Shannon MD [address] [place] [phone] documented as of this encounter Visit Diagnoses Not on filedocumented in this encounter Care Teams Him Clerk Relationship Specialty Start Date End Date Michelle Shannon MD [address] [place] [phone] PCP - General 09/08/11 documented as of this encounter
--- OUTSIDE RECORDS SUMMARY | 2024-04-28 15:59 | XMS_ITS | Encounter Summary ---
Author Organization [facility] Address [address] [place] [address] Care Team Providers Care Material Control Specialist Name Role Phone Michelle Shannon MD Primary Care Provider + Reason for Visit * Reason Onset Date Comments Medications Refill 06/17/2014 Encounter Details Date Type Department Care Team (Late st Contact Info) Description 06/17/2014 Telephone [facility] Sleep Program - [address] [id number] [place] [address] Medications Refill Social History Tobacco Use Types [...] Tab by mouth daily. 30 Tab 0 06/17/2014 07/25/2014 dextroamphetamine-amphetam ine (ADDERALL XR) 20 mg XR capsule Take 1 Cap by mouth 2 times daily. 60 Cap 0 06/17/2014 07/25/2014 documented in this encounter Miscellaneous Notes * Telephone Encounter - Juliana Díaz RN - 06/18/2014 0810 EDT Left message for pt to let know (adderall) prescription ready for greens picker at the Sleep Center. * Telephone Encounter - Geo Sharma - 06/17/2014 1409 EDT Calling to request a refill of Adderall to be picked up on Tuesday. Please call when ready. documented in this encounter Plan of Treatment Upcoming Encounters Date Type Department Care Team (Late st Contact Info) Description 06/08/2024 13:30 EDT Office Visit [facility] 550 [facility] [address] [place] [address] Michelle Shannon MD [address] [place] [address] [phone] documented as of this encounter Visit Diagnoses Not on filedocumented in this encounter Discontinued Medications Medication Sig Discontinue Reason Start Date End Da te dextroamphetamine-ampheta mine (ADDERALL XR) 20 mg XR capsule Take 1 Cap by mouth 2 times daily. Reorder 05/03/2014 06/17/2014 dextroamphetamine-ampheta mine (ADDERALL) 10 mg tablet Take 1 Tab by mouth daily. Reorder 05/03/2014 06/17/2014 documented as of this encounter Care Teams Material Control Specialist Relationship Specialty Start Date End Date Michelle Shannon MD [address] [place] [address] [phone] PCP - General 09/08/11 documented as of this encounter
--- OUTSIDE RECORDS SUMMARY | 2024-04-28 15:59 | XMS_ITS | Encounter Summary ---
Author Organization [facility] Address [address] [place] [address] Care Team Providers Care School Counsellor Name Role Phone Michelle Shannon MD Primary Care Provider + Reason for Visit * Reason Onset Date Comments Medications Refill 07/31/2013 Encounter Details Date Type Department Care Team (Late st Contact Info) Description 07/31/2013 Telephone [facility] Sleep Program - [address] [phone] [place] [address] Medications Refill Social History Tobacco Use Types [...] Tab by mouth daily. 30 Tab 0 07/31/2013 09/11/2013 dextroamphetamine-amphetam ine (ADDERALL XR) 20 mg XR capsule Take 1 Cap by mouth 2 times daily. 60 Cap 0 07/31/2013 09/11/2013 documented in this encounter Miscellaneous Notes * Telephone Encounter - Juliana Díaz RN - 07/31/2013 1210 EST Called pt and let her know that her prescriptions are ready for pick pulling machine operator at the Sleep Center. * Telephone Encounter - Juliana Díaz RN - 07/31/2013 1145 EST Called pt, she is using the Adderall 10mg in the afternoon and is finding this helpful in addition to her Adderall 20mg XR BID dosing. * Telephone Encounter - Irina Fernandez - 07/31/2013 1042 EST PT needs refill on Adderall 20mg XR 2/day; PT will pick pulling machine operator script here. documented in this encounter Plan of Treatment Upcoming Encounters Date Type Department Care Team (Late st Contact Info) Description 06/08/2024 13:30 EDT Office Visit [facility] [address] [place], [place] [phone] Michelle Shannon MD [address] [place] [phone] documented as of this encounter Visit Diagnoses Not on filedocumented in this encounter Discontinued Medications Medication Sig Discontinue Reason Start Date End Da te dextroamphetamine-ampheta mine (ADDERALL XR) 20 mg XR capsule Take 1 Cap by mouth 2 times daily. Reorder 06/20/2013 07/31/2013 dextroamphetamine-ampheta mine (ADDERALL) 10 mg tablet Take 1 Tab by mouth daily. Reorder 06/28/2013 07/31/2013 documented as of this encounter Care Teams School Counsellor Relationship Specialty Start Date End Date Michelle Shannon MD [address] [place] [address] [phone] PCP - General 09/08/11 documented as of this encounter
--- OUTSIDE RECORDS SUMMARY | 2024-04-28 15:59 | XMS_ITS | Encounter Summary ---
Author Organization [facility] Address [address] [place] [address] Care Team Providers Care Ticket Broker Name Role Phone Michelle Shannon MD Primary Care Provider + Reason for Visit * Reason Comments Depression Encounter Details Date Type Department Care Team (Late st Contact Info) Description 06/28/2013 8:30 EDT Office Visit [facility] [address] [place], [place] [phone] Rosemary Hussein MD 1 [facility] 6 [place] [phone] Bipolar disorder, unspecified (HCC-CMS) (Primary [...] Info) Description 06/08/2024 13:30 EDT Office Visit [facility] [address] [place], [place] [phone] Michelle Shannon MD [address] [place] [phone] documented as of this encounter Visit Diagnoses Diagnosis Bipolar disorder, unspecified ([facility])- Primary Bipolar disorder, unspecified documented in this encounter Care Teams Ticket Broker Relationship Specialty Start Date End Date Michelle Shannon MD [address] [place] [phone] PCP - General 09/08/11 documented as of this encounter
--- OUTSIDE RECORDS SUMMARY | 2024-04-28 15:59 | XMS_ITS | Encounter Summary ---
Author Organization [facility] Address [address] [place] [address] Care Team Providers Care Gas Fitter Helper Name Role Phone Michelle Shannon MD Primary Care Provider + Encounter Details Date Type Department Care Team (Late st Contact Info) Description 08/09/2014 Documentation Visit [facility] 1 [place], [place] [address] Milla Orozco [facility] 1 [facility], Level [address] [place] [address] Social History Tobacco Use Types [...] Info) Description 06/08/2024 13:30 EDT Office Visit [facility] 550 [facility] [address] [place], [place] [phone] Michelle Shannon MD [address] [place] [phone] documented as of this encounter Visit Diagnoses Not on filedocumented in this encounter Care Teams Gas Fitter Helper Relationship Specialty Start Date End Date Michelle Shannon MD [address] [place] [address] [phone] PCP - General 09/08/11 documented as of this encounter
--- OUTSIDE RECORDS SUMMARY | 2024-04-28 15:59 | XMS_ITS | Encounter Summary ---
Author Organization [facility] Address [address] [place] [address] Care Team Providers Care Teacher Nursery School Name Role Phone Michelle Shannon MD Primary Care Provider + Encounter Details Date Type Department Care Team (Late st Contact Info) Description 07/04/2013 Documentation Visit [facility] 1 [place], [place] [address] Kerry Doss [facility] 1 [facility], Level [address] [place] [address] Social History Tobacco Use Types [...] Info) Description 06/08/2024 13:30 EDT Office Visit [facility] [address] [place], [place] [phone] Michelle Shannon MD [address] [place] [phone] documented as of this encounter Visit Diagnoses Not on filedocumented in this encounter Care Teams Teacher Nursery School Relationship Specialty Start Date End Date Michelle Shannon MD [address] [place] [phone] PCP - General 09/08/11 documented as of this encounter
--- OUTSIDE RECORDS SUMMARY | 2024-04-28 15:59 | XMS_ITS | Encounter Summary ---
Author Organization [facility] Address [address] [place] [address] Care Team Providers Care Osteology Teacher Name Role Phone Michelle Shannon MD Primary Care Provider + Reason for Visit * Reason Comments Depression Anxiety Encounter Details Date Type Department Care Team ([facility] st Contact Info) Description 07/26/2014 8:30 EDT Office Visit [address] [phone] Romeo Ramesh [address] [phone] MDD (major depressive disorder), recurrent episode, severe (CMS-HCC) (HCC-CMS) (Primary Dx) Social History Tobacco [...] Sign Reading Time Taken Comments Blood Pressure 123/74 07/26/2014 0904 EDT Pulse 98 07/26/2014 09 EDT Temperature 35.6 ??C (96.1 ??F) 07/26/2014 0904 EDT Respiratory Rate - - Oxygen Saturation - - Inhaled Oxygen Concentration - - Weight 61.2 kg (135 lb) 07/26/2014 0904 EDT Height 165.1 cm (5' 5) 07/26/2014 0904 EDT Body Mass Index 22.47 07/26/2014 0904 EDT documented in this encounter Plan of Treatment Upcoming Encounters Date Type Department Care Team (Late st Contact Info) Description 06/08/2024 13:30 EDT Office Visit [facility] [address] [place] [address] Michelle Shannon MD [address] [place] [phone] documented as of this encounter Results * HEPATITIS C ANTIBODY (07/29/2014 14:49 EST) Hepatitis C Ab Negative [facility] Comment:Reference Range: Neg ative Blood specimen (specimen) 07/29/2014 14:49 EST 07/29/2014 15:27 EST Romeo Ramesh CHEMISTRY & BLOOD GA S ORDERABLES [facility] [address] [place] [address] * CHLAMYDIA/GC AMPLIFIED, URINE (07/29/2014 14:49 EST) Specimen Description Urine [facility] Chlamydia Result No Chlamydia trachomatis DNA detected by hand woodworking sander mediated amplification. [facility] Comment: A first catch urine specimen is acceptable for detection of Gonorrhea and Chlamydia, but might detect up to 10% fewer infections when compared with vaginal and endocervical swab samples. GC Result No Neisseria gonorrhoeae DNA detected by hand woodworking sander mediated amplification. [facility] Comment: A first catch urine specimen is acceptable for detection of Gonorrhea and Chlamydia, but might detect up to 10% fewer infections when compared with vaginal and endocervical swab samples. Specimen of unknown material (specimen) TOPOGRAPHY UNKNOWN / Unknown 07/29/2014 14:49 EST 07/29/2014 16:46 EST Romeo Ramesh MICROBIOLOGY - GENER AL ORDERABLES Performing Organization Address City/[facility]/ZIP Co de Phone Number [facility] [address] [place] [address] * SYPHILIS SEROLOGY (07/29/2014 14:49 EST) Syphilis Serology Interpretation: Nonreactive [facility] Comment:Reference Range: Non reactive Blood specimen (specimen) 07/29/2014 14:49 EST 07/29/2014 15:27 EST Romeo Ramesh IMMUNOLOGY AND SEROL OGY ORDERABLES Performing Organization Address [facility]/RUST Co de Phone Number [facility] [address] [place] [address] * HERPES SIMPLEX VIRUS (HSV) TYPE 1 & 2 AB, IGG (07/29/2014 14:49 EST) HSV Type 1 Ab, IgG Equivocal [facility] HSV Type 2 Ab, IgG Negative [facility] Blood specimen (specimen) 07/29/2014 14:49 EST 07/29/2014 15:27 EST Romeo Ramesh IMMUNOLOGY AND SEROL OGY ORDERABLES Performing Organization Address [facility]/RUST Co de Phone Number [facility] [address] [place] [address] * HIV 1/2 ANTIBODY (07/29/2014 14:49 EST) HIV 1/2 Antibody Negative [facility] Comment: If acute HIV-1 infection is suspected in a high risk patient, submit plasma specimen for HIV-1 RNA quantification test. Reference Range: ??Negative Assayed utilizing [employer] chemiluminescent technology. Blood specimen (specimen) 07/29/2014 14:49 EST 07/29/2014 15:27 EST Romeo Ramesh IMMUNOLOGY AND SEROL OGY ORDERABLES Performing Organization Address City/[facility]/RUST Co de Phone Number [facility] [address] [place] [address] * TSH (07/29/2014 14:49 EST) TSH 1.68 0.35 - 5.00 uIU/ml [facility] Blood specimen (specimen) 07/29/2014 14:49 EST 07/29/2014 15:27 EST Romeo Miley Domitila CHEMISTRY & BLOOD GA S ORDERABLES [facility] [address] [place] [address] documented in this encounter Visit Diagnoses Diagnosis MDD (major depressive disorder), recurrent episode, severe ([facility])- Primary Major depressive disorder, recurrent episode, severe, without mention of psychotic behavior documented in this encounter Care Teams Osteology Teacher Relationship Specialty Start Date End Date Michelle Shannon MD [address] [place] [phone] PCP - General 09/08/11 documented as of this encounter
--- OUTSIDE RECORDS SUMMARY | 2024-04-28 15:59 | XMS_ITS | Encounter Summary ---
Author Organization [facility] Address [address] [place] [address] Care Team Providers Care Stave Cutter Name Role Phone Michelle Shannon MD Primary Care Provider + Reason for Visit * Reason Onset Date Comments Medications Refill 12/31/2013 Encounter Details Date Type Department Care Team (Late st Contact Info) Description 12/31/2013 Telephone [facility] Sleep Program - [address] [phone] [place] [address] Medications Refill Social History Tobacco Use Types [...] Tab by mouth daily. 30 Tab 0 12/31/2013 01/21/2014 dextroamphetamine-amphetam ine (ADDERALL XR) 20 mg XR capsule Take 1 Cap by mouth 2 times daily. 60 Cap 0 12/31/2013 01/21/2014 documented in this encounter Miscellaneous Notes * Telephone Encounter - Juliana Díaz RN - 01/01/2014 0925 EDT Left message for pt to let know (Adderall) prescriptions ready for quill picking machine operator at the Sleep Center. * Telephone Encounter - Geo Sharma - 12/31/2013 1512 EDT Calling to request a refill of Adderall to be picked up. Please call her when ready. documented in this encounter Plan of Treatment Upcoming Encounters Date Type Department Care Team (Late st Contact Info) Description 06/08/2024 13:30 EDT Office Visit [facility] [address] [place] [address] Michelle Shannon MD [address] [place] [phone] documented as of this encounter Visit Diagnoses Not on filedocumented in this encounter Discontinued Medications Medication Sig Discontinue Reason Start Date End Da te dextroamphetamine-ampheta mine (ADDERALL XR) 20 mg XR capsule Take 1 Cap by mouth 2 times daily. Reorder 11/07/2013 12/31/2013 dextroamphetamine-ampheta mine (ADDERALL) 10 mg tablet Take 1 Tab by mouth daily. Reorder 11/07/2013 12/31/2013 documented as of this encounter Care Teams Stave Cutter Relationship Specialty Start Date End Date Michelle Shannon MD [address] [place] [address] [phone] PCP - General 09/08/11 documented as of this encounter
--- OUTSIDE RECORDS SUMMARY | 2024-04-28 15:59 | XMS_ITS | Encounter Summary ---
Author Organization [facility] Address [address] [place] [address] Care Team Providers Care Superintendent Electric Power Name Role Phone Michelle Shannon MD Primary Care Provider + Reason for Visit * Reason Onset Date Comments Other 07/16/2013 Encounter Details Date Type Department Care Team (Late st Contact Info) Description 07/16/2013 Telephone [facility] 1 [place], [place] [phone] Kerry Doss [facility] 1 [facility], Level [address] [place] [address] Other Social History Tobacco Use [...] Info) Description 06/08/2024 13:30 EDT Office Visit [facility] [address] [place] [address] Michelle Shannon MD [address] [place] [phone] documented as of this encounter Visit Diagnoses Not on filedocumented in this encounter Care Teams Superintendent Electric Power Relationship Specialty Start Date End Date Michelle Shannon MD [address] [place] [phone] PCP - General 09/08/11 documented as of this encounter
--- OUTSIDE RECORDS SUMMARY | 2024-04-28 15:59 | XMS_ITS | Encounter Summary ---
Author Organization [facility] Address [address] [place] [address] Care Team Providers Care Frit Coater Name Role Phone Michelle Shannon MD Primary Care Provider + Encounter Details Date Type Department Care Team (Late st Contact Info) Description 07/18/2013 Phlebotomy Only [facility] [address] [place], [place] [phone] Journeyman Press Operator, Outpatient Metabolic acidosis Social History Tobacco Use Types [...] Info) Description 06/08/2024 13:30 EDT Office Visit [facility] 550 [facility] [address] [place] [address] Michelle Shannon MD [address] [place] [phone] documented as of this encounter Procedures Procedure Name Priority Date/Time Associated Diagnosis Comments COMPREHENSIVE METABOLIC PANEL (CMP) Routine 07/18/2013 8:47 EDT Metabolic acidosis documented in this encounter [...] MD CHEMISTR Y & BLOOD GAS ORDERABLES [facility] [address] [place] [address] documented in this encounter Visit Diagnoses Diagnosis Metabolic acidosis Acidosis documented in this encounter Care Teams Frit Coater Relationship Specialty Start Date End Date Michelle Shannon MD [address] [place] [phone] PCP - General 09/08/11 documented as of this encounter
--- OUTSIDE RECORDS SUMMARY | 2024-04-28 15:59 | XMS_ITS | Encounter Summary ---
Author Organization [facility] Address [address] [place] [address] Care Team Providers Care Project Development Manager Name Role Phone Michelle Shannon MD Primary Care Provider + Reason for Visit * Reason Onset Date Comments Medications Refill 07/25/2014 Encounter Details Date Type Department Care Team (Late st Contact Info) Description 07/25/2014 Telephone [facility] Sleep Program - [address] [phone] [place] [address] Medications Refill Social History Tobacco Use Types [...] mouth daily. 30 Tab 0 07/25/2014 07/31/2014 dextroamphetamine-amphetam ine (ADDERALL XR) 20 mg XR capsule Take 1 Cap by mouth 2 times daily. 60 Cap 0 07/25/2014 08/12/2014 documented in this encounter Miscellaneous Notes * Telephone Encounter - Juliana Díaz RN - 07/25/2014 1625 EDT Spoke with patient and let her know her (adderall) prescriptions ready for strip picker at the Sleep Center. * Telephone Encounter - Irina Fernandez - 07/25/2014 1613 EDT PT needs refill on Adderall XR 20mg; PT will strip picker at manager front Thursday 07/26. documented in this encounter Plan of Treatment Upcoming Encounters Date Type Department Care Team (Late st Contact Info) Description 06/08/2024 13:30 EDT Office Visit [facility] 550 [facility] [address] [place] [address] Michelle Shannon MD [address] [place] [address] [phone] documented as of this encounter Visit Diagnoses Not on filedocumented in this encounter Discontinued Medications Medication Sig Discontinue Reason Start Date End Da te dextroamphetamine-ampheta mine (ADDERALL XR) 20 mg XR capsule Take 1 Cap by mouth 2 times daily. Reorder 06/17/2014 07/25/2014 dextroamphetamine-ampheta mine (ADDERALL) 10 mg tablet Take 1 Tab by mouth daily. Reorder 06/17/2014 07/25/2014 documented as of this encounter Care Teams Project Development Manager Relationship Specialty Start Date End Date Michelle Shannon MD [address] [place] [address] [phone] PCP - General 09/08/11 documented as of this encounter
--- OUTSIDE RECORDS SUMMARY | 2024-04-28 15:59 | XMS_ITS | Encounter Summary ---
Author Organization [facility] Address [address] [place] [address] Care Team Providers Care Minister Of Religion Name Role Phone Michelle Shannon MD Primary Care Provider + Reason for Visit * Reason Comments Follow-up Encounter Details Date Type Department Care Team (Late st Contact Info) Description 06/28/2013 15:40 EDT Office Visit [facility] Sleep Program - [address] [address] [place] [address] Narcolepsy (Primary Dx); RBD (REM behavioral disorder) Discharge [...] Sign Reading Time Taken Comments Blood Pressure 128/72 06/28/2013 1541 EDT Pulse 102 06/28/2013 1541 EDT Temperature - - Respiratory Rate 16 06/28/2013 1541 EDT Oxygen Saturation 98% 06/28/2013 1541 EDT Inhaled Oxygen Concentration - - Weight 72.6 kg (160 lb) 06/28/2013 1541 EDT Height 165.1 cm (5' 5) 06/28/2013 1541 EDT Body Mass Index 26.63 06/28/2013 1541 EDT documented in this encounter Ordered Prescriptions Prescription Sig Dispensed Refills Start Date End Da te dextroamphetamine-amphetam ine (ADDERALL) 10 mg tablet Take 1 Tab by mouth daily. 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 The patient reports that in general she has been doing pretty well with her functioning during the day. Her main problem is early evening when she tends to be quite sleepy. She finds that she gets home from work and has trouble doing tasks around the house like dishes and laundry and goes to bed so early that she is unable to engage in normal activities at home. She is prettyfunctional during the day at work and has not had issues driving to date. The patient continues on Adderall XR 20 mg twice daily for her stimulant dosing. She has no significant side effects and the remainder of her medications are also reviewed in the electronic medical record. The patient continues on clonazepam 1 mg at bedtime and she reports that she generally takes this medication every other day. She has not had the recurrence of unusual behaviors out of sleep and in general, the clonazepam dosing seems to be working well for her. OBJECTIVE: Blood pressure 128/72, pulse 102, respirations 16, weight 160 pounds. General exam reveals an alert, pleasant woman. Nasopharynx patent and symmetric proximally. Oropharynx: Mallampati IIIwith pink mucosa. Neck: Supple. No lymphadenopathy. Chest: Clear to auscultation bilaterally. Cardiovascular: Regular rate and rhythm. No murmurs. Extremities: No edema. 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 Her RBD symptoms are resolved on every other day dosing of clonazepam. Her main concern today is difficulty with sleepiness in the later afternoon. She does not have insomnia symptoms. PLAN: 1. Narcolepsy without cataplexy: We will continue with Adderall XR 20 mg twice daily dosing and I suggested adding an immediate release dose of 10 mg in the midafternoon to see if this helps with later afternoon sleepiness, but does not cause insomnia symptoms. She is going to contact us regarding how this dosing regimen works out so that we can change her prescriptions accordingly going forward. 2. REM sleep behavior disorder: I would continue with the same dosing of clonazepam. This is working well for the patient. We have a yearly followup in place or she will call sooner with changes. Dean Turner MD 01 21 PM - Dean Turner MD jn Dictation ID: [id number] cc: Michelle Shannon MD, [facility] [address] [facility], [facility], [place] [address] * Dean Turner MD - 06/29/2013 1321 EDT This office note has been dictated. documented in this encounter Plan of Treatment Upcoming Encounters Date Type Department Care Team (Late st Contact Info) Description 06/08/2024 13:30 EDT Office Visit [facility], [address] [facility] [address] [place] [address] Michelle Shanonn MD [address] [place] [phone] documented as of this encounter Visit Diagnoses Diagnosis Narcolepsy- Primary Narcolepsy without cataplexy RBD (REM behavioral disorder) REM sleep behavior disorder documented in this encounter Care Teams Minister Of Religion Relationship Specialty Start Date End Date Michelle Shannon MD [address] [place] [phone] PCP - General 09/08/11 documented as of this encounter
--- OUTSIDE RECORDS SUMMARY | 2024-04-28 15:59 | XMS_ITS | Encounter Summary ---
Author Organization [facility] Address [address] [place] [address] Care Team Providers Care Business Services Sales Representative Name Role Phone Michelle Shannon MD Primary Care Provider + Reason for Visit * Reason Onset Date Comments Medications Refill 01/21/2014 Encounter Details Date Type Department Care Team (Late st Contact Info) Description 01/21/2014 Refill [facility] Sleep Program - [address] [phone] [place] [address] Medications Refill Social History Tobacco Use Types [...] by mouth daily. Earliest Fill Date: 01/28/14 30 Tab 0 01/28/2014 03/12/2014 dextroamphetamine-ampheta mine (ADDERALL XR) 20 mg XR capsule Take 1 Cap by mouth 2 times daily. Earliest Fill Date: 01/28/14 60 Cap 0 01/28/2014 03/12/2014 documented in this encounter Miscellaneous Notes * Telephone Encounter - Juliana Díaz RN - 01/22/2014 0907 EDT Left message for pt to let know (adderall) prescriptions ready for pickle sorter at the Sleep Center. * Telephone Encounter - Irina Fernandez - 01/21/2014 1110 EDT PT needs refill on Adderall XR 20mg and Adderall 10mg; PT will pickle sorter at front desk attendant. documented in this encounter Plan of Treatment Upcoming Encounters Date Type Department Care Team (Late st Contact Info) Description 06/08/2024 13:30 EDT Office Visit [facility] [address] [facility] [address] [place] [address] Michelle Shannon MD [address] [place] [phone] documented as of this encounter Visit Diagnoses Not on filedocumented in this encounter Discontinued Medications Medication Sig Discontinue Reason Start Date End Da te dextroamphetamine-ampheta mine (ADDERALL XR) 20 mg XR capsule Take 1 Cap by mouth 2 times daily. Reorder 12/31/2013 01/21/2014 dextroamphetamine-ampheta mine (ADDERALL) 10 mg tablet Take 1 Tab by mouth daily. Reorder 12/31/2013 01/21/2014 documented as of this encounter Care Teams Business Services Sales Representative Relationship Specialty Start Date End Date Michelle Shannon MD [address] [place] [phone] PCP - General 09/08/11 documented as of this encounter
--- OUTSIDE RECORDS SUMMARY | 2024-04-28 15:59 | XMS_ITS | Encounter Summary ---
Author Organization [facility] Address [address] [place] [address] Care Team Providers Care Treasury Assistant Name Role Phone Michelle Shannon MD Primary Care Provider + Reason for Visit * Reason Onset Date Comments Medications Refill 11/07/2013 Encounter Details Date Type Department Care Team (Late st Contact Info) Description 11/07/2013 Telephone [facility] Sleep Program - [address] [phone] [place] [address] Medications Refill Social History Tobacco Use Types [...] Tab by mouth daily. 30 Tab 0 11/07/2013 12/31/2013 dextroamphetamine-amphetam ine (ADDERALL XR) 20 mg XR capsule Take 1 Cap by mouth 2 times daily. 60 Cap 0 11/07/2013 12/31/2013 documented in this encounter Miscellaneous Notes * Telephone Encounter - Juliana Díaz RN - 11/07/2013 1222 EST Left message for pt to let know (Adderall) prescriptions ready for tow picker at the Sleep Center. * Telephone Encounter - Geo Sharma - 11/07/2013 1115 EST Calling to request a refill of Adderall. Please call when it is ready to be picked up. documented in this encounter Plan of Treatment Upcoming Encounters Date Type Department Care Team (Late st Contact Info) Description 06/08/2024 13:30 EDT Office Visit [facility] [address] [facility] [address] [place], [place] [phone] Michelle Shannon MD [address] [place] [phone] documented as of this encounter Visit Diagnoses Not on filedocumented in this encounter Discontinued Medications Medication Sig Discontinue Reason Start Date End Da te dextroamphetamine-ampheta mine (ADDERALL XR) 20 mg XR capsule Take 1 Cap by mouth 2 times daily. Reorder 09/11/2013 11/07/2013 dextroamphetamine-ampheta mine (ADDERALL) 10 mg tablet Take 1 Tab by mouth daily. Reorder 09/11/2013 11/07/2013 documented as of this encounter Care Teams Treasury Assistant Relationship Specialty Start Date End Date Michelle Shannon MD [address] [place] [phone] PCP - General 09/08/11 documented as of this encounter
--- OUTSIDE RECORDS SUMMARY | 2024-04-28 15:59 | XMS_ITS | Encounter Summary ---
Author Organization [facility] Address [address] [place] [address] Care Team Providers Care Hazard Waste Handler Name Role Phone Michelle Shannon MD Primary Care Provider + Reason for Visit * Reason Comments Depressive Symptoms Encounter Details Date Type Department Care Team (Late st Contact Info) Description 07/16/2014 12:30 EDT Office Visit [facility] 1 [place] [address] Ceci Alcantara, [address] [phone] Bipolar 1 disorder, depressed, severe (CMS-HCC) (Primary Dx) Social History Tobacco Use [...] Info) Description 06/08/2024 13:30 EDT Office Visit [facility] [address] [place] [address] Michelle Shannon MD [address] [place] [phone] documented as of this encounter Visit Diagnoses Diagnosis Bipolar 1 disorder, depressed, severe ([facility] Primary Bipolar I disorder, most recent episode (or current) depressed, severe, without mention of psychotic behavior documented in this encounter Care Teams Hazard Waste Handler Relationship Specialty Start Date End Date Michelle Shannon MD [address] [place] [phone] PCP - General 09/08/11 documented as of this encounter
--- OUTSIDE RECORDS SUMMARY | 2024-04-28 15:59 | XMS_ITS | Encounter Summary ---
Author Organization [facility] Address [address] [place] [address] Care Team Providers Care Screen Cutter And Trimmer Name Role Phone Michelle Shannon MD Primary Care Provider + Encounter Details Date Type Department Care Team (Late st Contact Info) Description 11/15/2013 Documentation Visit [facility] 1 [place], [place] [address] Kerry Doss [facility] [address] [place] [phone] Social History Tobacco Use Types [...] Info) Description 06/08/2024 13:30 EDT Office Visit [facility] [address] [place] [address] Michelle Shannon MD [address] [place] [phone] documented as of this encounter Visit Diagnoses Not on filedocumented in this encounter Care Teams Screen Cutter And Trimmer Relationship Specialty Start Date End Date Michelle Shannon MD [address] [place] [phone] PCP - General 09/08/11 documented as of this encounter
--- OUTSIDE RECORDS SUMMARY | 2024-04-28 15:59 | XMS_ITS | Encounter Summary ---
Author Organization [facility] Address [address] [place] [address] Care Team Providers Care Research Assistant Member Name Role Phone Michelle Shannon MD Primary Care Provider + Encounter Details Date Type Department Care Team (Late st Contact Info) Description 07/29/2014 Phlebotomy Only [facility] [address] [place], [place] [phone] Casino Supervisor, Outpatient MDD (major depressive disorder), recurrent episode, severe (CMS-HCC) ([facility]) Social History Tobacco Use Types Packs/Day Years [...] Description 06/08/2024 13:30 EDT Office Visit [facility] [address] [facility] 201 [place], [place] [phone] Michelle Shannon MD [address] [place] [phone] documented as of this encounter Procedures Procedure Name Priority Date/Time Associated Diagnosis Comments SYPHILIS SEROLOGY Routine 07/29/2014 14: 49 EST MDD (major depressive disorder), recurrent episode, severe (CMS-HCC) (HCC-CMS) CHLAMYDIA/N. GONORRHOEAE AMPLIFIED RNA, URINE Routine 07/29/2014 14:49 EST MDD (major depressive disorder), recurrent episode, severe (CMS-HCC) (HCC-CMS) HEPATITIS C AB W REFLEX TO HCV RNA BY PCR Routine 07/29/2014 14:49 EST MDD (major depressive disorder), recurrent episode, severe (CMS-HCC) (HCC-CMS) HERPES SIMPLEX VIRUS (HSV) TYPE 1 & 2 AB, IGG Routine 07/29/2014 14:49 EST MDD (major depressive disorder), recurrent episode, severe (CMS-HCC) (HCC-CMS) HIV 1/2 ANTIGEN AND ANTIBODY, 4TH GENERATION Routine 07/29/2014 14:49 EST MDD (major depressive disorder), recurrent episode, severe (CMS-HCC) (HCC-CMS) TSH Routine 07/29/2014 14:49 EST MDD (major depressive disorder), recurrent episode, severe (CMS-HCC) (HCC-CMS) documented in this encounter Results * HEPATITIS C ANTIBODY (07/29/2014 14:49 EST) Hepatitis C Ab Negative [facility] Comment:Reference Range: Neg ative Blood specimen (specimen) 07/29/2014 14:49 EST 07/29/2014 15:27 EST Romeo Ramesh CHEMISTRY & BLOOD GA S ORDERABLES [facility] [address] [place] [address] * CHLAMYDIA/GC AMPLIFIED, URINE (07/29/2014 14:49 EST) Specimen Description Urine [facility] Chlamydia Result No Chlamydia trachomatis DNA detected by customer quality engineer mediated amplification. [facility] Comment: A first catch urine specimen is acceptable for detection of Gonorrhea and Chlamydia, but might detect up to 10% fewer infections when compared with vaginal and endocervical swab samples. GC Result No Neisseria gonorrhoeae DNA detected by customer quality engineer mediated amplification. [facility] Comment: A first catch urine specimen is acceptable for detection of Gonorrhea and Chlamydia, but might detect up to 10% fewer infections when compared with vaginal and endocervical swab samples. Specimen of unknown material (specimen) TOPOGRAPHY UNKNOWN / Unknown 07/29/2014 14:49 EST 07/29/2014 16:46 EST Romeo Ramesh MICROBIOLOGY - GENER AL ORDERABLES Performing Organization Address City/[facility]/ZIP Co de Phone Number [facility] [address] [place] [address] * SYPHILIS SEROLOGY (07/29/2014 14:49 EST) Pathologist [facility] Syphilis Serology Interpretation: Nonreactive [facility] Comment:Reference Range: Non reactive Blood specimen (specimen) 07/29/2014 14:49 EST 07/29/2014 15:27 EST Romeo Ramesh IMMUNOLOGY AND SEROL OGY ORDERABLES Performing Organization Address City/[facility]/ZIP Co de Phone Number [facility] [address] [place] [address] * HERPES SIMPLEX VIRUS (HSV) TYPE 1 & 2 AB, IGG (07/29/2014 14:49 EST) HSV Type 1 Ab, IgG Equivocal [facility] HSV Type 2 Ab, IgG Negative [facility] Blood specimen (specimen) 07/29/2014 14:49 EST 07/29/2014 15:27 EST Romeo Ramesh IMMUNOLOGY AND SEROL OGY ORDERABLES Performing Organization Address [facility] Co de Phone Number [facility] [address] [place] [address] * HIV 1/2 ANTIBODY (07/29/2014 14:49 EST) Pathologist [facility] HIV 1/2 Antibody Negative [facility] Comment: If acute HIV-1 infection is suspected in a high risk patient, submit plasma specimen for HIV-1 RNA quantification test. Reference Range: ??Negative Assayed utilizing [employer] chemiluminescent technology. Blood specimen (specimen) 07/29/2014 14:49 EST 07/29/2014 15:27 EST Romeo Ramesh IMMUNOLOGY AND SEROL OGY ORDERABLES Performing Organization Address City/[facility] Co de Phone Number [facility] [address] [place] [address] * TSH (07/29/2014 14:49 EST) TSH 1.68 0.35 - 5.00 uIU/ml [facility] Blood specimen (specimen) 07/29/2014 14:49 EST 07/29/2014 15:27 EST Romeo Ramesh CHEMISTRY & BLOOD GA S ORDERABLES Performing Organization Address [facility]/[place] de Phone Number [facility] [address] [place] [phone] documented in this encounter Visit Diagnoses Diagnosis MDD (major depressive disorder), recurrent episode, severe ([facility]) Major depressive disorder, recurrent episode, severe, without mention of psychotic behavior documented in this encounter Care Teams Research Assistant Member Relationship Specialty Start Date End Date Michelle Shannon MD [address] [place] [phone] PCP - General 09/08/11 documented as of this encounter
--- OUTSIDE RECORDS SUMMARY | 2024-04-28 15:59 | XMS_ITS | Encounter Summary ---
Author Organization [facility] Address [address] [place] [address] Care Team Providers Care Roll Bucker Name Role Phone Michelle Shannon MD Primary Care Provider + Reason for Visit * Reason Onset Date Comments Medications Refill 05/03/2014 Encounter Details Date Type Department Care Team (Late st Contact Info) Description 05/03/2014 Telephone [facility] Sleep Program - [address] [phone] [place] [address] Medications Refill Social History Tobacco Use Types [...] Tab by mouth daily. 30 Tab 0 05/03/2014 06/17/2014 dextroamphetamine-amphetam ine (ADDERALL XR) 20 mg XR capsule Take 1 Cap by mouth 2 times daily. 60 Cap 0 05/03/2014 06/17/2014 documented in this encounter Miscellaneous Notes * Telephone Encounter - Juliana Díaz RN - 05/03/2014 1140 EDT Left message for pt to let know (adderall) prescriptions ready for picking tech at the Sleep Center. * Telephone Encounter - Irina Fernandez - 05/03/2014 0921 EDT PT needs refill on Adderall 20mg XR; Adderall 10mg; PT will picking tech at front office assistant. documented in this encounter Plan of Treatment Upcoming Encounters Date Type Department Care Team (Late st Contact Info) Description 06/08/2024 13:30 EDT Office Visit [facility] [address] [facility] [address] [place] [address] Michelle Shannon MD [address] [place] [phone] documented as of this encounter Visit Diagnoses Not on filedocumented in this encounter Discontinued Medications Medication Sig Discontinue Reason Start Date End Da te dextroamphetamine-ampheta mine (ADDERALL XR) 20 mg XR capsule Take 1 Cap by mouth 2 times daily. Reorder 03/12/2014 05/03/2014 dextroamphetamine-ampheta mine (ADDERALL) 10 mg tablet Take 1 Tab by mouth daily. Reorder 03/12/2014 05/03/2014 documented as of this encounter Care Teams Roll Bucker Relationship Specialty Start Date End Date Michelle Shannon MD [address] [place] [phone] PCP - General 09/08/11 documented as of this encounter
--- OUTSIDE RECORDS SUMMARY | 2024-04-28 15:59 | XMS_ITS | Encounter Summary ---
Author Organization [facility] Address [address] [place] [address] Care Team Providers Care Host Coordinator Name Role Phone Michelle Shannon MD Primary Care Provider + Reason for Visit * Reason Onset Date Comments Medications Refill 01/10/2014 Encounter Details Date Type Department Care Team (Late st Contact Info) Description 01/10/2014 Telephone [facility] Sleep Program - [address] [phone] [place] [address] Medications Refill Social History Tobacco Use Types [...] Telephone Encounter - Juliana Díaz RN - 01/10/2014 1119 EDT Called pt and let her know her refills were already called in on 01/08/14 to her pharmacy. * Telephone Encounter - Geo Sharma - 01/10/2014 1113 EDT Calling to request a refill of Klonopin to be called into [facility] on [facility]. documented in this encounter Plan of Treatment Upcoming Encounters Date Type Department Care Team (Late st Contact Info) Description 06/08/2024 13:30 EDT Office Visit [facility] [address] [place], [place] [phone] Michelle Shannon MD [address] [place] [phone] documented as of this encounter Visit Diagnoses Not on filedocumented in this encounter Care Teams Host Coordinator Relationship Specialty Start Date End Date Michelle Shannon MD [address] [place] [phone] PCP - General 09/08/11 documented as of this encounter
--- OUTSIDE RECORDS SUMMARY | 2024-04-28 15:59 | XMS_ITS | Encounter Summary ---
Author Organization [facility] Address [address] [place] [address] Care Team Providers Care Housekeeping Associate Name Role Phone Michelle Shannon MD Primary Care Provider + Reason for Visit * Reason Onset Date Comments Coordination Of Care 07/26/2013 Encounter Details Date Type Department Care Team (Late st Contact Info) Description 07/26/2013 Telephone [facility] 1 [place], [place] [phone] [facility] 6 [place] [phone] Coordination Of Care Social History [...] Info) Description 06/08/2024 13:30 EDT Office Visit [facility] [address] [place], [place] [phone] Michelle Shannon MD [address] [place] [phone] documented as of this encounter Visit Diagnoses Not on filedocumented in this encounter Care Teams Housekeeping Associate Relationship Specialty Start Date End Date Michelle Shannon MD [address] [place] [phone] PCP - General 09/08/11 documented as of this encounter
--- OUTSIDE RECORDS SUMMARY | 2024-04-28 15:59 | XMS_ITS | Encounter Summary ---
Author Organization [facility] Address [address] [place] [address] Care Team Providers Care Book Sewing Machine Operator Name Role Phone Michelle Shannon MD Primary Care Provider + Encounter Details Date Type Department Care Team (Late st Contact Info) Description 07/16/2014 12:00 EDT - 07/16/2014 23:59 EDT Hospital Encounter [address] [address] [address] [phone] Discharge Disposition: Home or Self [...] Sig Dispensed Refills Start Date End Date hccmsmi-hezfjgpbafrip-eo ffeine (EXCEDRIN MIGRAINE) 250-250-65 mg per tabletIndications:migrai [...] times daily. 60 Cap 0 06/17/2014 07/25/2014 dextroamphetamine-amphet amine (ADDERALL) 10 mg tablet Take 1 Tab by mouth daily. 30 Tab 0 06/17/2014 07/25/2014 duloxetine (CYMBALTA) 30 mg capsule Take 60 [...] Code Departure Means Destination Home or Self Custodial documented in this encounter Plan of Treatment Upcoming Encounters Date Type Department Care Team (Late st Contact Info) Description 06/08/2024 13:30 EDT Office Visit [facility] [address] [place] [address] Michelle Shannon MD [address] [place] [phone] documented as of this encounter Visit Diagnoses Not on filedocumented in this encounter Care Teams Book Sewing Machine Operator Relationship Specialty Start Date End Date Michelle Shannon MD [address] [place] [phone] PCP - General 09/08/11 documented as of this encounter
--- OUTSIDE RECORDS SUMMARY | 2024-04-28 15:59 | XMS_ITS | Encounter Summary ---
Author Organization [facility] Address [address] [place] [address] Care Team Providers Care Aoc Director Combat Plans Officer Name Role Phone Michelle Shannon MD Primary Care Provider + Reason for Visit * Reason Comments Depression Encounter Details Date Type Department Care Team (Late st Contact Info) Description 07/02/2013 8:30 EDT Office Visit [facility] 1 [place], [place] [address] Rosemary Hussein MD 1 [facility], [facility] [place] [facility] 6 [place] [address] Bipolar disorder, unspecified (HCC-CMS) (Primary [...] Info) Description 06/08/2024 13:30 EDT Office Visit [facility] [address] [place], [place] [phone] Michelle Shannon MD [address] [place] [phone] documented as of this encounter Visit Diagnoses Diagnosis Bipolar disorder, unspecified ([facility] Primary Bipolar disorder, unspecified documented in this encounter Care Teams Aoc Director Combat Plans Officer Relationship Specialty Start Date End Date Michelle Shannon MD [address] [place] [phone] PCP - General 09/08/11 documented as of this encounter
--- OUTSIDE RECORDS SUMMARY | 2024-04-28 15:59 | XMS_ITS | Encounter Summary ---
Author Organization [facility] Address [address] [place] [address] Care Team Providers Care Lead Programmer Name Role Phone Michelle Shannon MD Primary Care Provider + Reason for Visit * Reason Onset Date Comments Coordination Of Care 07/26/2014 Encounter Details Date Type Department Care Team (Late st Contact Info) Description 07/26/2014 Telephone [facility] 1 [place], [place] [phone] Milla Orozco [facility] 1 [facility], Level [address] [place] [address] Coordination Of Care Social History [...] Info) Description 06/08/2024 13:30 EDT Office Visit [facility] [address] [place], [place] [phone] Michelle Shannon MD [address] [place] [phone] documented as of this encounter Visit Diagnoses Not on filedocumented in this encounter Care Teams Lead Programmer Relationship Specialty Start Date End Date Michelle Shannon MD [address] [place] [phone] PCP - General 09/08/11 documented as of this encounter
--- OUTSIDE RECORDS SUMMARY | 2024-04-28 16:00 | XMS_ITS | Encounter Summary ---
Author Organization [facility] Address [address] [place] [address] Care Team Providers Care Internet Webmaster Name Role Phone Michelle Shannon MD Primary Care Provider + Reason for Visit * Reason Comments Medication Questions Encounter Details Date Type Department Care Team (Late st Contact Info) Description 12/06/2012 Documentation Visit [facility] Sleep Program - [address] [phone] [place] [address] Social History Tobacco Use Types Packs/Day Years Used Date Smoking Tobacco: Never Alcohol Use Standard Drinks/Week Comments Not Asked 0 (1 standard drink = 0.6 oz pur e alcohol) Sex and Gender Information Value Date Recorded Sex Assigned at Not on file Gender Identity Female 11/10/2020 8:41 EST Sexual Orientation Straight 12/07/2023 23 :06 EDT documented as of this encounter Progress Notes * Dean Turner MD - 12/06/2012 1322 EDT I spoke with Dr. Shannon, and together we agreed that she will take over prescribing the patient's clonazepam for the time being. documented in this encounter Plan of Treatment Upcoming Encounters Date Type Department Care Team (Late st Contact Info) Description 06/08/2024 13:30 EDT Office Visit [facility] [address] [place] [address] Michelle Shannon MD [address] [place] [phone] documented as of this encounter Visit Diagnoses Not on filedocumented in this encounter Care Teams Internet Webmaster Relationship Specialty Start Date End Date Michelle Shannon MD [address] [place] [phone] PCP - General 09/08/11 documented as of this encounter
--- OUTSIDE RECORDS SUMMARY | 2024-04-28 16:00 | XMS_ITS | Encounter Summary ---
Author Organization [facility] Address [address] [place] [address] Care Team Providers Care Radio Communications Mechanician Name Role Phone Michelle Shannon MD Primary Care Provider + Reason for Visit * Reason Comments Depression Encounter Details Date Type Department Care Team (Late st Contact Info) Description 06/14/2013 13:30 EDT Office Visit [facility] Mood & Anxiety - [address] [place] 1 [place], [place] [phone] SenAmber valles, [facility] 1 [facility], [facility] 6 [place] [address] Mood disorder (CMS-HCC) (HCC-CMS) (Primary Dx) Social History [...] Description 06/08/2024 13:30 EDT Office Visit [facility] [address] [place], [place] [phone] Michelle Shannon MD [address] [place] [phone] documented as of this encounter Visit Diagnoses Diagnosis Mood disorder ([facility])- Primary Unspecified episodic mood disorder documented in this encounter Care Teams Radio Communications Mechanician Relationship Specialty Start Date End Date Michelle Shannon MD [address] [place] [phone] PCP - General 09/08/11 documented as of this encounter
--- OUTSIDE RECORDS SUMMARY | 2024-04-28 16:00 | XMS_ITS | Encounter Summary ---
Author Organization [facility] Address [address] [place] [address] Care Team Providers Care Customer Service Voice Name Role Phone Michelle Shannon MD Primary Care Provider + Encounter Details Date Type Department Care Team (Late st Contact Info) Description 06/20/2013 12:33 EDT - 06/20/2013 23:59 EDT Hospital Encounter [address] [address] Tanya Epperson MD 111 [facility] Level [address] [place] [address] Discharge Disposition: Home or Self [...] Sig Dispensed Refills Start Date End Date rcuwxnv-glfwhocngadlm-bv ffeine (EXCEDRIN MIGRAINE) 250-250-65 mg per tabletIndications:migrai [...] Code Departure Means Destination Home or Self Fdc documented in this encounter Miscellaneous Notes * Scanned Note-Null - CUSTOMER SERVICE REPRESENTATIVE TELLER, SCAN 2 - 06/28/2013 1435 EDT * Scanned Note-Null - CUSTOMER SERVICE REPRESENTATIVE TELLER, SCAN 2 - 06/28/2013 1432 EDT * Scanned Note-Null - CUSTOMER SERVICE REPRESENTATIVE TELLER, SCAN 2 - 06/28/2013 1431 EDT documented in this encounter Plan of Treatment Upcoming Encounters Date Type Department Care Team (Late st Contact Info) Description 06/08/2024 13:30 EDT Office Visit [facility] [address] [place], [place] [phone] Michelle Shannon MD [address] [place] [phone] documented as of this encounter Visit Diagnoses Not on filedocumented in this encounter Care Teams Customer Service Voice Relationship Specialty Start Date End Date Michelle Shannon MD [address] [place] [phone] PCP - General 09/08/11 documented as of this encounter
--- OUTSIDE RECORDS SUMMARY | 2024-04-28 16:00 | XMS_ITS | Encounter Summary ---
Author Organization [facility] Address [address] [place] [address] Care Team Providers Care Orchid Grower Name Role Phone Michelle Shannon MD Primary Care Provider + Reason for Visit * Reason Onset Date Comments Other 02/09/2012 Encounter Details Date Type Department Care Team (Late st Contact Info) Description 02/09/2012 Telephone [facility] Sleep Program - [address] [phone] [place] [address] Other Social History Tobacco Use Types Packs/Day Years Used Date Smoking Tobacco: Never Assessed Sex and Gender Information Value Date Recorded Sex Assigned at Not on file Gender Identity Female 11/10/2020 8:41 EST Sexual Orientation Straight 12/07/2023 23 :06 EDT documented as of this encounter Miscellaneous Notes * Telephone Encounter - Juliana Díaz RN - 02/09/2012 4708 EDT Called pt and let her know 's recommendation re contacting her PCP. Pt verbalized understanding. * Telephone Encounter - Dean Turner MD - 02/09/2012 151 EDT I would refer her back to her primary for appropriate referral - I have discussed with her in the past that management of this issue is not in my scope of practice. Dean Li * Telephone Encounter - Juliana Díaz RN - 02/09/2012 1515 EDT Spoke with pt. She has had some issues with her foot drag for the past few years but for the last month she feels she is having more problems going up/down stairs, missing stairs. She states she seesthe stairs and is aware but not navigating them well, falling and getting hurt. To make . * Telephone Encounter - Geo Sharma - 02/09/2012 1501 EDT Calling to report that she has more problems with missing stairs and falling. Please advise. documented in this encounter Plan of Treatment Upcoming Encounters Date Type Department Care Team (Late st Contact Info) Description 06/08/2024 13:30 EDT Office Visit [facility] 550 [facility] 201 [place] [address] Michelle Shannon MD [address] [place] [phone] documented as of this encounter Visit Diagnoses Not on filedocumented in this encounter Care Teams Orchid Grower Relationship Specialty Start Date End Date Michelle Shannon MD [address] [place] [phone] PCP - General 09/08/11 documented as of this encounter
--- OUTSIDE RECORDS SUMMARY | 2024-04-28 16:00 | XMS_ITS | Encounter Summary ---
Author Organization [facility] Address [address] [place] [address] Care Team Providers Care Otolaryngology Surgeon Name Role Phone Michelle Shannon MD Primary Care Provider + Encounter Details Date Type Department Care Team (Late st Contact Info) Description 06/20/2013 Documentation Visit [facility] 1 [place], [place] [phone] Kerry Doss [facility] 1 [facility], Level [address] [place] [address] Social History Tobacco Use Types [...] Visit [facility] [address] [place] [address] Michelle Shannon MD 28 [place] [phone] documented as of this encounter Visit Diagnoses Not on filedocumented in this encounter Care Teams Otolaryngology Surgeon Relationship Specialty Start Date End Date Michelle Shannon MD [address] [place] [phone] PCP - General 09/08/11 documented as of this encounter
--- OUTSIDE RECORDS SUMMARY | 2024-04-28 16:00 | XMS_ITS | Encounter Summary ---
Author Organization [facility] Address [address] [place] [address] Care Team Providers Care Manager R D Name Role Phone Michelle Shannon MD Primary Care Provider + Reason for Visit * Reason Onset Date Comments Medications Refill 08/29/2012 Encounter Details Date Type Department Care Team (Late st Contact Info) Description 08/29/2012 Refill [facility] Sleep Program - S [address] [address] [place] [address] Medications Refill Social History Tobacco Use Types Packs/Day Years Used Date Smoking Tobacco: Never Assessed Sex and Gender Information Value Date Recorded Sex Assigned at Not on file Gender Identity Female 11/10/2020 8:41 EST Sexual Orientation Straight 12/07/2023 23 :06 EDT documented as of this encounter Miscellaneous Notes * Telephone Encounter - Juliana Díaz RN - 08/29/2012 1424 EST Called pt back and let her know she has not seen in over a year and he will need to seeher before prescribing medication. She has 'no showed' for her April appt and her July appt. Suggested to pt that she come in for her scheduled appt, now scheduled for September, and she will be put on a 'wait list' and will call her if we have a cancellation for an earlier appt. Suggested she contact her tactical intelligence officer to see if she will be willing to prescribe medication for her until she comes in to see . * Telephone Encounter - Geo Sharma - 08/29/2012 1410 EST Her physologist, Dr. Sheree Aguero is no longer in practice. She needs her Adderall refilled. She has an appointment with Dr. Turner in Sep. documented in this encounter Plan of Treatment Upcoming Encounters Date Type Department Care Team (Late st Contact Info) Description 06/08/2024 13:30 EDT Office Visit [facility] [address] [place], [place] [phone] Michelle Shannon MD [address] [place] [phone] documented as of this encounter Visit Diagnoses Not on filedocumented in this encounter Care Teams Manager R D Relationship Specialty Start Date End Date Michelle Shannon MD [address] [place] [phone] PCP - General 09/08/11 documented as of this encounter
--- OUTSIDE RECORDS SUMMARY | 2024-04-28 16:00 | XMS_ITS | Encounter Summary ---
Author Organization [facility] Address [address] [place] [address] Care Team Providers Care Regulatory Compliance Manager Name Role Phone Apolinar Lee MD Primary Care Provider [phone] Encounter Details Date Type Department Care Team (Late st Contact Info) Description 06/30/2010 Results Only [facility] Services - [facility] ([facility] [address] [place] [phone] Nhung Warner NP Social History Tobacco Use [...] Info) Description 06/08/2024 13:30 EDT Office Visit [facility] [address] [place] [address] Michelle Shannon MD [address] [place] [phone] documented as of this encounter Procedures Procedure Name Priority Date/Time Associated Diagnosis Comments COLLECTION DATE ERROR Routine 06/30/2010 9:30 EDT CHLAMYDIA/N. GONORRHOEAE AMPLIFIED NUCLEIC ACID Routine 06/30/2010 9:30 EDT documented in this encounter Results * COLLECTION DATE ERROR (06/30/2010 9:30 EDT) Orig. Collect Date: 06.30.10 [facility] Correct Kisha Date: 06.29.10 [facility] Date Error Noted: 07.06.10 [facility] Refer to Accn(s): [id number] [facility] Collect Date Message Original collect date for this order was incorrect. [facility] Test(s) Affected: [facility] 06/30/2010 9:30 EDT 06/30/2010 19:57 EDT Nhung Warner NP CHEMISTRY & BLOOD GA S ORDERABLES Performing Organization Address [facility] Co de Phone Number [facility] [address] [place] [address] * CHLAMYDIA/GC AMPLIFIED (06/30/2010 9:30 EDT) Specimen Description Cervix [facility] Chlamydia Result No Chlamydia trachomatis DNA detected by electric sealing machine operator mediated amplification. [facility] GC Result No Neisseria gonorrhoeae DNA detected by electric sealing machine operator mediated amplification. [facility] 06/30/2010 9:30 EDT 06/30/2010 17:59 EDT Nhung Warner NP MICROBIOLOGY - GENER AL ORDERABLES Performing Organization Address City/[facility]/ZIP Co de Phone Number [facility] [address] [place] [address] documented in this encounter Visit Diagnoses Not on filedocumented in this encounter Care Teams Regulatory Compliance Manager Relationship Specialty Start Date End Date Apolinar Lee MD [address] [place] [phone] PCP - General 01/16/09 09/07/11 documented as of this encounter
--- OUTSIDE RECORDS SUMMARY | 2024-04-28 16:00 | XMS_ITS | Encounter Summary ---
Author Organization [facility] Address [address] [place] [address] Care Team Providers Care Windows Mobile Developer Name Role Phone Apolinar Lee MD Primary Care Provider [phone] Michelle Shannon MD Primary Care Provider + Reason for Visit * Reason Comments Other Encounter Details Date Type Department Care Team (Late st Contact Info) Description 12/27/2010 Telephone [facility] - S [place] [address] [place] [phone] [place] [address] Other Social History Tobacco Use Types Packs/Day Years Used Date Smoking Tobacco: Never Assessed Interpersonal Safety Answer Date Record ed Physically [...] Dispensed Refills Start Date End Da te Melatonin 3 mg Tab take 1 tablet by mouth at bedtime 30 Tab 1 12/27/2010 02/20/2011 documented in this encounter Miscellaneous Notes * Telephone Encounter - Juliana Díaz RN - 12/28/2010 1003 EDT Spoke with pt and let her know her melatonin was refilled about an hour ago and to contact her pharmacy. Pt asking if she can have refill her stimulant meds, currently being managed by her psychiatrist. Pt has appt in February, asked that she discuss with then as he may prefer her psychiatrist continue to manage her meds. * Telephone Encounter - Rebecca Mason - 12/28/2010 0949 EDT Patient is out of medication - please call her. documented in this encounter Plan of Treatment Upcoming Encounters Date Type Department Care Team (Late st Contact Info) Description 06/08/2024 13:30 EDT Office Visit [facility] [address] [place] [address] Michelle Shannon MD [address] [place] [phone] documented as of this encounter Visit Diagnoses Not on filedocumented in this encounter Care Teams Windows Mobile Developer Relationship Specialty Start Date End Date Apolinar Lee MD [address] [place] [phone] PCP - General 01/16/09 09/07/11 Michelle Shannon MD [address] [place] [phone] PCP - General 09/08/11 documented as of this encounter
--- OUTSIDE RECORDS SUMMARY | 2024-04-28 16:00 | XMS_ITS | Encounter Summary ---
Author Organization [facility] Address [address] [place] [address] Care Team Providers Care Intermediate Frame Tender Name Role Phone Michelle Shannon MD Primary Care Provider + Reason for Visit * Reason Onset Date Comments Medication Management 02/02/2012 Needs orde r for Naratriptan Encounter Details Date Type Department Care Team (Late st Contact Info) Description 02/02/2012 Telephone [facility] Neurology - S [place] [address] [place] [phone] Mary Lou Hernadez, fishing rod trimmer Management (Needs order for Naratriptan) Social History Tobacco Use Types Packs/Day Years Used Date Smoking Tobacco: Never Assessed Sex and Gender Information Value Date Recorded Sex Assigned at Not on file Gender Identity Female 11/10/2020 8:41 EST Sexual Orientation Straight 12/07/2023 23 :06 EDT documented as of this encounter Ordered Prescriptions Prescription Sig Dispensed Refills Start Date End Da te naratriptan (AMERGE) 2.5 mg tablet 2.5 mg at onset of headache, may repeat in 4 hours if needed. Max of 2 tabs in 24 hours, treat no more that 2 days a week and no more than 8 days a month 12 Tab 3 02/02/2012 03/24/2012 documented in this encounter Miscellaneous Notes * Telephone Encounter - Mary Lou Hernadez, RN - 02/03/2012 0813 EDT Naratriptan needs a prior auth for the medication Naratriptan 2.5mg---need to change the quantity to 39 tabs x 6 months I have notified the pharmacy and asked them top call hr when the med is ready for p/u----Mary Lou * Telephone Encounter - Katt Lopez RN - 02/02/[address] Goff may try naratriptan, 2.5 mg ! At onset of headache, may repeat X 1 in 4 hours if needed. MAx of 2 in 24 hours, treat no more than 2 days per week and no more than 8 days per month. RX called [facility]. Pt has tried and failed Imitrex, Relpax and Axert. * Telephone Encounter - Mary Lou Hernadez RN - 02/02/2012 1539 EDT Pt states that she has used Sumatriptan, Relpax, axert----has not use Amerge and need to get ordersfrom Dr. Goff---mary lou documented in this encounter Plan of Treatment Upcoming Encounters Date Type Department Care Team (Late st Contact Info) Description 06/08/2024 13:30 EDT Office Visit [facility] 550 [facility] 201 [place] [address] Michelle Shannon MD [address] [place] [phone] documented as of this encounter Visit Diagnoses Not on filedocumented in this encounter Discontinued Medications Medication Sig Discontinue Reason Start Date End Da te AXERT 12.5 mg tablet take 1 tablet by mouth immediately May repeat one time after 2 hours MAXIMUM 2 DAILY AND TWICE PER WEEK 01/31/2012 02/02/2012 sumatriptan (IMITREX) 100 mg tablet Take 1 Tab by mouth once as needed for Migraine for 1 dose. Take as directed. 09/10/2010 02/02/2012 documented as of this encounter Care Teams Intermediate Frame Tender Relationship Specialty Start Date End Date Michelle Shannon MD [address] [place] [phone] PCP - General 09/08/11 documented as of this encounter
--- OUTSIDE RECORDS SUMMARY | 2024-04-28 16:00 | XMS_ITS | Encounter Summary ---
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); RBD (REM [...] Sign Reading Time Taken Comments Blood Pressure 126/70 10/26/2012 1115 EST Pulse 100 10/26/2012 1115 EST Temperature - - Respiratory Rate 16 10/26/2012 1115 EST Oxygen Saturation 100% 10/26/2012 1115 EST Inhaled Oxygen Concentration - - Weight 70.8 kg (156 lb) 10/26/2012 1115 EST Height 165.1 cm (5' 5) 10/26/2012 1115 EST Body Mass Index 25.96 10/26/2012 1115 EST documented in this encounter Discharge Disposition Disposition Code Departure Means Destination Auto Discharge documented in this encounter Progress Notes * Dean Turner MD - 10/27/2012 0949 EST [facility] PROGRESS/FOLLOWUP NOTE - 10/26/2012 SUBJECTIVE: Ms Blair returns today for followup regarding narcolepsy without cataplexy and REM sleep behavior disorder. The patient was just seen a couple weeks ago, but comes back in today quite frustrated and tearful about her current level of daytime sleepiness. She feels like she is really notsleeping well at night. She shares an new apartment and a bedroom with a friend who has small children and feels like she wakes up frequently at night, both related to environmental issues and just from a lack of being able to get really good deep sleep. She wakes up tired in the morning and her current Adderall-XR 20 mg twice daily dosing does not seem to keep her as alert as she would like juliette during the day. By 5:00 or 6:00 she feels very tired. She continues on clonazepam 0.5 mg at bedtime. She has not taking melatonin recent and just recently had this filled. Since our last visit, she has no other major interval changes in health. She had spoken with Dr Shannon about reinitiating a relationship with a psychiatrist and she says that she is being set up with an appointment through Dr Shannon' office. OBJECTIVE: Blood pressure 126/70, pulse 100, respirations 16, weight 156 pounds, height 65 inches. General exam reveals a generally anxious appearing, at times tearful woman through our interview. Chest clear to auscultation bilaterally. Cardiovascular: Regular rate and rhythm, no murmurs. 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 She has had no recent issues with unusual events out of sleep at night. At this point, I think it would be ba to focus on improving the patien t's nighttime sleep, as this certainly could be the main contributor to her fatigue during the day.I would rather not increase her daytime stimulant dosing as this is already toward the higher end of dosing and there is not much room left toward the maximal dosing of 60 mg per day. PLAN: Narcolepsy without cataplexy, disrupted sleep: We discussed trying to improve the patient's environment sleeping, although the patient does not feel this will be very doable for her in the short term. I suggested our sleep well program as I stressed to her that trying to improve her nocturnalsleep in any way possible will hopefully benefit her significantly in the long run. The patient wasamenable to this and we will set an appointment up with Dr Sydni Charles in this regard. In the meantime, we will increase her clonazepam dosing to 1 mg at bedtime to hopefully assist with sleep andto continue treatment of a REM sleep behavior disorder. I discussed with her that I would not be excited about putting her on any other types of hypnotic given the propensity to cause parasomnia events. The patient is going to initiate treatment with Dr Charles and monitor her increase in clonazepamdosing, in addition to reinitiating melatonin therapy at bedtime, and let me know in the next couple weeks how she is feeling. Electronically Signed by Dean Turner MD 11/01/2012 14:43 Dean Turner MD [facility] Sleep Diplomate - Dean Turner MD - JV Job ID: SM Doc ID: [id number] Ext Doc ID: [id number] cc: Michelle Shannon MD * Dean Turner MD - 10/26/2012 1140 EST This office note has been dictated. documented in this encounter Plan of Treatment Upcoming Encounters Date Type Department Care Team (Late st Contact Info) Description 06/08/2024 13:30 EDT Office Visit [facility], [address] [place] [address] Michelle Shannon MD [address] [place] [address] [phone] documented as of this encounter Visit Diagnoses Diagnosis Narcolepsy without cataplexy(347.00)- Primary Narcolepsy without cataplexy RBD (REM behavioral disorder) REM sleep behavior disorder documented in this encounter Discontinued Medications Medication Sig Discontinue Reason Start Date End Da te amphetamine-dextroampheta mine (ADDERALL XR) 10 mg XR capsule Take 20 mg by mouth 2 times daily. Takes one tab(am) and 2 tabs(pm). 09/10/2010 10/26/2012 documented as of this encounter Historical Medications * This list may reflect changes made after this encounter. Medication Sig Dispensed Refills Start Date End Date amphetamine-dextroampheta mine (ADDERALL XR) 20 mg XR capsule Take 20 mg by mouth 2 times daily. 01/09/2013 added in this encounter Care Teams Production Control Planner Relationship Specialty Start Date End Date Michelle Shannon MD [address] [place] [address] [phone] PCP - General 09/08/11 documented as of this encounter
--- OUTSIDE RECORDS SUMMARY | 2024-04-28 16:00 | XMS_ITS | Encounter Summary ---
Author Organization [facility] Address [address] [place] [address] Care Team Providers Care Sql Data Analyst Name Role Phone Apolinar Lee MD Primary Care Provider [phone] [phone] Reason for Visit * Reason Comments Medication Management imitrex not effect aftab at all. Has used axert with sucess in the past. Encounter Details Date Type Department Care Team (Late st Contact Info) Description 11/11/2010 Telephone [facility] Neurology - [place] [address] [place] [phone] Álvaro Goff MD PhD [address] [facility] Level [address] [place] [address] Medication Management (imitrex not effective at all. Has used axert with sucess in the past. ) Social History Tobacco Use Types Packs/Day Years Used Date Smoking Tobacco: Never Assessed Sex and Gender Information Value Date Recorded Sex Assigned at Not on file Gender Identity Female 11/10/2020 8:41 EST Sexual Orientation Straight 12/07/2023 23 :06 EDT documented as of this encounter Ordered Prescriptions Prescription Sig Dispensed Refills Start Date End Da te almotriptan (AXERT) 12.5 mg tablet Take 1 Tab by mouth once as needed for Migraine for 1 dose. may repeat in 2 hours if needed--max 2/day 2 days/week 12 Tab 3 11/12/2010 01/31/2012 documented in this encounter Miscellaneous Notes * Telephone Encounter - Chela Hernadez RN - 11/12/2010 [address] Goff to change to Axert-------pt os aware of instructions for use * Telephone Encounter - Radha Pérez - 11/12/2010 1042 EST Patient calling back to check on plan. * Telephone Encounter - Katt Lopez RN - 11/11/2010 1736 EST Tried Imitrex two different occassions, not effective at all, even when repeating dose .Has migraine this evening, tried Excedrin migraine Axert has worked in the past. Asking if she can try Axert or something else? * Telephone Encounter - Radha Pérez - 11/11/2010 1635 EST Is getting migraine now. documented in this encounter Plan of Treatment Upcoming Encounters Date Type Department Care Team (Late st Contact Info) Description 06/08/2024 13:30 EDT Office Visit [facility] [address] [facility] [address] [place] [address] Michelle Shannon MD [address] [place] [phone] documented as of this encounter Visit Diagnoses Not on filedocumented in this encounter Care Teams Sql Data Analyst Relationship Specialty Start Date End Date Apolinar Lee MD [address] [place] [phone] PCP - General 01/16/09 09/07/11 documented as of this encounter
--- OUTSIDE RECORDS SUMMARY | 2024-04-28 16:00 | XMS_ITS | Encounter Summary ---
Author Organization [facility] Address [address] [place] [address] Care Team Providers Care Product Line Manager Name Role Phone Michelle Shannon MD Primary Care Provider + Reason for Visit * Reason Onset Date Comments Medications Refill 01/09/2013 Encounter Details Date Type Department Care Team (Late st Contact Info) Description 01/09/2013 Telephone [facility] Sleep Program - [address] [phone] [place] [address] Medications Refill Social History Tobacco Use Types [...] Dispensed Refills Start Date End Da te amphetamine-dextroamphetam ine (ADDERALL XR) 20 mg XR capsule Take 1 Cap by mouth 2 times daily. 60 Cap 0 01/09/2013 02/08/2013 documented in this encounter Miscellaneous Notes * Telephone Encounter - Dean Turner MD - 01/09/2013 1309 EDT Pt out of medication - has undated script in hand from Dr. Shannon that could not be filled - new script given, paper script destroyed. documented in this encounter Plan of Treatment Upcoming Encounters Date Type Department Care Team (Late st Contact Info) Description 06/08/2024 13:30 EDT Office Visit [facility] [address] [place], [place] [phone] Michelle Shannon MD [address] [place] [phone] documented as of this encounter Visit Diagnoses Not on filedocumented in this encounter Discontinued Medications Medication Sig Discontinue Reason Start Date End Da te amphetamine-dextroampheta mine (ADDERALL XR) 20 mg XR capsule Take 20 mg by mouth 2 times daily. Reorder 01/09/2013 documented as of this encounter Care Teams Product Line Manager Relationship Specialty Start Date End Date Michelle Shannon MD [address] [place] [phone] PCP - General 09/08/11 documented as of this encounter
--- OUTSIDE RECORDS SUMMARY | 2024-04-28 16:00 | XMS_ITS | Encounter Summary ---
Author Organization [facility] Address [address] [place] [address] Care Team Providers Care Buckshot Swage Operator Name Role Phone Apolinar Lee MD Primary Care Provider [phone] [phone] Reason for Visit * Reason Comments Sleep Disorder Encounter Details Date Type Department Care Team (Late st Contact Info) Description 02/24/2011 9:20 EDT Office Visit [facility] Sleep Program - [address] [phone] [place] [address] REM sleep behavior disorder (Primary Dx) Social History Tobacco Use Types Packs/Day Years Used Date Smoking Tobacco: Never Assessed Sex and Gender Information Value Date Recorded Sex Assigned at Not on file Gender Identity Female 11/10/2020 8:41 EST Sexual Orientation Straight 12/07/2023 23 :06 EDT documented as of this encounter Progress Notes * Dean Turner MD - 02/25/2011 1554 EDT [facility] [place] PROGRESS/FOLLOWUP NOTE - 02/24/2011 SUBJECTIVE: Ms Blair returns today for followup regarding REM sleep behavior disorder. The patientreports that after an increase in her clonazepam dosing at bedtime to 0.5 mg orally, she has noticed a decrease in the severity of her RBD. She has not gotten out of bed since the increase in dose and has noted that her talking and yelling out at night has decreased significantly. She has not had a significant increase in morning grogginess with the increased dosing. She otherwise noted no side effects from increasing the dosing. The patient reports no other interval changes in health and her current medications are reviewed inthe electronic medical record. These have not changed either. She does note that she has been a bitmore stress in her life due to some financial concerns. OBJECTIVE: Blood pressure 108/72. General exam reveals a pleasant, somewhat anxious-appearing youngwoman. Chest: Clear to auscultation bilaterally. Cardiovascular: Regular rate and rhythm, no murmurs. Extremities: No edema. 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 A slight increase in her clonazepam dosing has improved her dream-enactingbehaviors. PLAN: REM sleep behavior disorder: I would like to continue the same dosing as the patient has had a significant improvement and not had any episodes, which would cause concern or potential harm to the patient. She is going to call me if she has an increase in unusual behaviors at night; otherwise,will follow up in 1 year. Electronically Signed by Dean Turner MD 02/25/2011 15:54 Dean Turner MD [facility] Sleep Diplomate - Dean Turner MD - Job ID: SM Doc ID: [id number] Ext Doc ID: [id number] cc: Jarocho Lee MD * Dean Turner MD - 02/24/2011 0935 EDT This office note has been dictated. documented in this encounter Plan of Treatment Upcoming Encounters Date Type Department Care Team (Late st Contact Info) Description 06/08/2024 13:30 EDT Office Visit [facility] [address] [facility] [address] [place] [address] Michelle Shannon MD [address] [place] [phone] documented as of this encounter Visit Diagnoses Diagnosis REM sleep behavior disorder- Primary documented in this encounter Discontinued Medications Medication Sig Discontinue Reason Start Date End Da te Melatonin 3 mg Tab Take 1 Tab by mouth at bedtime. 09/15/2010 02/24/2011 Melatonin 3 mg Tab TAKE 1 TABLET BY MOUTH AT BEDTIME 02/20/2011 02/24/2011 documented as of this encounter Historical Medications * This list may reflect changes made after this encounter. Medication Sig Dispensed Refills Start Date End Date lorazepam (ATIVAN) 0.5 mg Tab Take 0.5 mg by mouth as needed. 02/24/2011 06/20/2013 added in this encounter Care Teams Buckshot Swage Operator Relationship Specialty Start Date End Date Apolinar Lee MD [address] [place] [phone] PCP - General 01/16/09 09/07/11 documented as of this encounter
--- OUTSIDE RECORDS SUMMARY | 2024-04-28 16:00 | XMS_ITS | Encounter Summary ---
Author Organization [facility] Address [address] [place] [address] Care Team Providers Care Recreation Program Coordinator Name Role Phone Apolinar Lee MD Primary Care Provider [phone] Reason for Visit * Reason Onset Date Comments Medications Refill 04/14/2011 Encounter Details Date Type Department Care Team (Late st Contact Info) Description 04/14/2011 Refill [facility] Sleep Program - [address] [place] [address] [place], [place] [phone] [place] [address] Medications Refill Social History Tobacco Use Types Packs/Day Years Used Date Smoking Tobacco: Never Assessed Sex and Gender Information Value Date Recorded Sex Assigned at Not on file Gender Identity Female 11/10/2020 8:41 EST Sexual Orientation Straight 12/07/2023 23 :06 EDT documented as of this encounter Miscellaneous Notes * Telephone Encounter - Geo Sharma - 04/14/2011 1513 EDT Calling to request a refill of Clonazepam .5 mgs to be sent to [facility]. documented in this encounter Plan of Treatment Upcoming Encounters Date Type Department Care Team (Late st Contact Info) Description 06/08/2024 13:30 EDT Office Visit [facility] [address] [place], [place] [phone] Michelle Shannon MD [address] [place] [phone] documented as of this encounter Visit Diagnoses Not on filedocumented in this encounter Care Teams Recreation Program Coordinator Relationship Specialty Start Date End Date Apolinar Lee MD [address] [place] [phone] PCP - General 01/16/09 09/07/11 documented as of this encounter
--- OUTSIDE RECORDS SUMMARY | 2024-04-28 16:00 | XMS_ITS | Encounter Summary ---
Author Organization [facility] Address [address] [place] [address] Care Team Providers Care Weaver Axminster Name Role Phone Michelle Shannon MD Primary Care Provider + Reason for Visit * Reason Onset Date Comments Medications Refill 06/20/2013 Encounter Details Date Type Department Care Team (Late st Contact Info) Description 06/20/2013 Refill [facility] Sleep Program - [address] [phone] [place] [address] Medications Refill Social History Tobacco Use Types [...] times daily. 60 Cap 0 06/20/2013 07/31/2013 documented in this encounter Miscellaneous Notes * Telephone Encounter - Juliana Díaz RN - 06/20/2013 1156 EDT Spoke with pt and rescheduled her FUR from March. Let her know her Adderall prescription ready for spanish moss picker. * Telephone Encounter - Juliana Díaz RN - 06/20/2013 1100 EDT Left message asking patient to call me at the Sleep Center. * Telephone Encounter - Geo Sharma - 06/20/2013 0828 EDT Calling to request a refill of Adderall to be picked up. Please call when ready. documented in this encounter Plan of Treatment Upcoming Encounters Date Type Department Care Team (Late st Contact Info) Description 06/08/2024 13:30 EDT Office Visit [facility] 550 [facility] [address] [place], [place] [phone] Michelle Shannon MD [address] [place] [phone] documented as of this encounter Visit Diagnoses Not on filedocumented in this encounter Discontinued Medications Medication Sig Discontinue Reason Start Date End Da te dextroamphetamine-ampheta mine (ADDERALL XR) 20 mg XR capsule Take 1 Cap by mouth 2 times daily. Reorder 05/07/2013 06/20/2013 documented as of this encounter Care Teams Weaver Axminster Relationship Specialty Start Date End Date Michelle Shannon MD [address] [place] [phone] PCP - General 09/08/11 documented as of this encounter
--- OUTSIDE RECORDS SUMMARY | 2024-04-28 16:00 | XMS_ITS | Encounter Summary ---
Author Organization [facility] Address [address] [place] [address] Care Team Providers Care Geographic Information System Analyst Name Role Phone Michelle Shannon MD Primary Care Provider + Reason for Visit * Reason Onset Date Comments Medications Refill 03/26/2013 Encounter Details Date Type Department Care Team (Late st Contact Info) Description 03/26/2013 Refill [facility] Sleep Program - [address] [phone] [place] [address] Medications Refill Social History Tobacco Use Types [...] mouth 2 times daily. 60 Cap 0 03/26/2013 05/07/2013 documented in this encounter Miscellaneous Notes * Telephone Encounter - Juliana Díaz RN - 03/27/2013 0858 EDT Called pt, phone not accepting messages; to let her know her Adderall prescription is ready for orange picker machine operator. * Telephone Encounter - Irina Fernandez - 03/26/2013 1341 EDT PT needs refill on Aderall 20XR; PT will orange picker machine operator at desk officer. documented in this encounter Plan of Treatment Upcoming Encounters Date Type Department Care Team (Late st Contact Info) Description 06/08/2024 13:30 EDT Office Visit [facility] [address] [place], [place] [phone] Michelle Shannon MD [address] [place] [phone] documented as of this encounter Visit Diagnoses Not on filedocumented in this encounter Discontinued Medications Medication Sig Discontinue Reason Start Date End Da te amphetamine-dextroampheta mine (ADDERALL XR) 20 mg XR capsule Take 1 Cap by mouth 2 times daily. Reorder 02/08/2013 03/26/2013 documented as of this encounter Care Teams Geographic Information System Analyst Relationship Specialty Start Date End Date Michelle Shannon MD [address] [place] [phone] PCP - General 09/08/11 documented as of this encounter
--- OUTSIDE RECORDS SUMMARY | 2024-04-28 16:00 | XMS_ITS | Encounter Summary ---
Author Organization [facility] Address [address] [place] [address] Care Team Providers Care Commercial Trailer Truck Driver Name Role Phone Apolinar Lee MD Primary Care Provider [phone] Reason for Visit * Reason Onset Date Comments Medications Refill 01/20/2011 Encounter Details Date Type Department Care Team (Late st Contact Info) Description 01/20/2011 Refill [facility] Neurology - [address] [phone] Álvaro Goff MD PhD 1 [facility] 2 [place] [phone] Medications Refill Social History Tobacco Use Types Packs/Day Years Used Date Smoking Tobacco: Never Assessed Sex and Gender Information Value Date Recorded Sex Assigned at Not on file Gender Identity Female 11/10/2020 8:41 EST Sexual Orientation Straight 12/07/2023 23 :06 EDT documented as of this encounter Miscellaneous Notes * Telephone Encounter - Juliana Díaz RN - 01/21/2011 0959 EDT * Telephone Encounter - Nhung Dolan - 01/20/2011 1422 EDT Needs to be called in today. documented in this encounter Plan of Treatment Upcoming Encounters Date Type Department Care Team (Late st Contact Info) Description 06/08/2024 13:30 EDT Office Visit [facility] [address] [place] [address] Michelle Shannon MD [address] [place] [phone] documented as of this encounter Visit Diagnoses Not on filedocumented in this encounter Care Teams Commercial Trailer Truck Driver Relationship Specialty Start Date End Date Apolinar Lee MD [address] [place] [phone] PCP - General 01/16/09 09/07/11 documented as of this encounter
--- OUTSIDE RECORDS SUMMARY | 2024-04-28 16:00 | XMS_ITS | Encounter Summary ---
Author Organization [facility] Address [address] [place] [address] Care Team Providers Care Paralegal Supervisor Name Role Phone Apolinar Lee MD Primary Care Provider [phone] Reason for Visit * Reason Comments Other Encounter Details Date Type Department Care Team (Late Contact Info) Description 01/20/2011 Refill [facility] Sleep Program - [address] [phone] [place] [address] Other Social History Tobacco Use Types Packs/Day Years Used Date Smoking Tobacco: Never Assessed Sex and Gender Information Value Date Recorded Sex Assigned at Not on file Gender Identity Female 11/10/2020 8:41 EST Sexual Orientation Straight 12/07/2023 23 :06 EDT documented as of this encounter Ordered Prescriptions Prescription Sig Dispensed Refills Start Date End Da te clonAZEPAM (KLONOPIN) 0.5 mg tablet take 1 tablet by mouth at bedtime 30 Tab 1 01/20/2011 10/11/2012 documented in this encounter Miscellaneous Notes * Telephone Encounter - Juliana Díaz RN - 01/21/2011 1000 EDT Called in refill to patient's pharmacy for Clonazepam .5mg tab, one tab at HS, #30, 1 refill. documented in this encounter Plan of Treatment Upcoming Encounters Date Type Department Care Team (Late st Contact Info) Description 06/08/2024 13:30 EDT Office Visit [facility] [address] [place] [address] Michelle Shannon MD [address] [place] [phone] documented as of this encounter Visit Diagnoses Not on filedocumented in this encounter Discontinued Medications Medication Sig Discontinue Reason Start Date End Da te clonAZEPAM (KLONOPIN) 0.5 mg tablet Take 1 Tab by mouth at bedtime. 08/27/2010 01/21/2011 documented as of this encounter Care Teams Paralegal Supervisor Relationship Specialty Start Date End Date Apolinar Lee MD [address] [place] [phone] PCP - General 01/16/09 09/07/11 documented as of this encounter
--- OUTSIDE RECORDS SUMMARY | 2024-04-28 16:00 | XMS_ITS | Encounter Summary ---
Author Organization [facility] Address [address] [place] [address] Care Team Providers Care Public Health Analyst Name Role Phone Apolinar Lee MD Primary Care Provider [phone] Encounter Details Date Type Department Care Team (Late st Contact Info) Description 08/30/2011 Results Only [facility] Laboratory Services - [facility] ([facility]) [address] [place], [place] [phone] Michelle Shannon MD [address] [place] [phone] Social History Tobacco Use Types Packs/Day [...] Info) Description 06/08/2024 13:30 EDT Office Visit [facility] [address] [place], [place] [phone] Michelle Shannon MD [address] [place] [phone] documented as of this encounter Procedures Procedure Name Priority Date/Time Associated Diagnosis Comments SSA/SSB Routine 08/30/2011 16:15 EST documented in this encounter Results * SSA/SSB (08/30/2011 16:15 EST) SS A/Ro Ab, IgG, S <0.2 <1.0 (Negative) U [facility] SS B/La Ab, IgG, S <0.2 <1.0 (Negative) [facility] Comment: Performed by: [facility], [address], [place] [address], Engineering Psychologist: Laurel Cox, Ph.D. 08/30/2011 16:1 5 EST 08/30/2011 18:56 EST Michelle Shannon MD CHEMISTRY & BLOO D GAS ORDERABLES [facility] [address] [place] [address] documented in this encounter Visit Diagnoses Not on filedocumented in this encounter Care Teams Public Health Analyst Relationship Specialty Start Date End Date Apolinar Lee MD [address] [place] [phone] PCP - General 01/16/09 09/07/11 documented as of this encounter
--- OUTSIDE RECORDS SUMMARY | 2024-04-28 16:00 | XMS_ITS | Encounter Summary ---
Author Organization [facility] Address [address] [place] [address] Care Team Providers Care Study Manager Name Role Phone Michelle Shannon MD Primary Care Provider + Reason for Visit * Reason Onset Date Comments Medication Problem 10/25/2012 Encounter Details Date Type Department Care Team (Late st Contact Info) Description 10/25/2012 Refill [facility] Sleep Program - [address] [phone] [place] [address] Medication Problem Social History Tobacco Use Types Packs/Day Years Used Date Smoking Tobacco: Never Assessed Sex and Gender Information Value Date Recorded Sex Assigned at Not on file Gender Identity Female 11/10/2020 8:41 EST Sexual Orientation Straight 12/07/2023 23 :06 EDT documented as of this encounter Miscellaneous Notes * Telephone Encounter - Juliana Díaz RN - 10/25/2012 1531 EST Called pt and scheduled her for a follow-up with for tomorrow. * Telephone Encounter - Dean Turner MD - 10/25/2012 1456 EST I believe I have a f/u appt tomorrow am at 11:00 - can we schedule her for then to discuss? Thanks, Dean * Telephone Encounter - Juliana Díaz RN - 10/25/2012 1135 EST Spoke with pt, she states she is sleeping for 11 hours; HS at 8pm and has a hard time waking but gets up around 7am, no naps. She states she has REM behavior disorder so she wonders if she is gettingquality sleep. Reports she feels sleepy and her Adderall is not working. To make aware. * Telephone Encounter - Juliana Díaz RN - 10/25/2012 1130 EST Left message asking patient to call me at the Sleep Center. * Telephone Encounter - Geo Sharma - 10/25/2012 1031 EST Calling to report she is having a hard time staying awake while on Adderall. Please call to discuss. documented in this encounter Plan of Treatment Upcoming Encounters Date Type Department Care Team (Late st Contact Info) Description 06/08/2024 13:30 EDT Office Visit [facility] [address] [place] [address] Michelle Shannon MD [address] [place] [phone] documented as of this encounter Visit Diagnoses Not on filedocumented in this encounter Care Teams Study Manager Relationship Specialty Start Date End Date Michelle Shannon MD [address] [place] [phone] PCP - General 09/08/11 documented as of this encounter
--- OUTSIDE RECORDS SUMMARY | 2024-04-28 16:00 | XMS_ITS | Encounter Summary ---
Author Organization [facility] Address [address] [place] [address] Care Team Providers Care Boat Canvas Maker Installer Name Role Phone Michelle Shannon MD Primary Care Provider + Reason for Visit * Reason Onset Date Comments Medications Refill 01/17/2013 Encounter Details Date Type Department Care Team (Late st Contact Info) Description 01/17/2013 Refill [facility] Sleep Program - [address] [phone] [place] [address] Medications Refill Social History Tobacco Use Types [...] at bedtime. 30 Tab 5 01/17/2013 09/24/2013 documented in this encounter Miscellaneous Notes * Telephone Encounter - Juliana Díaz RN - 01/17/2013 1520 EDT Called in clonazepam as ordered by to patient's pharmacy as ordered (spoke with terell Harris). * Telephone Encounter - NaomieestebanAndiwmarcin Fam - 01/17/2013 1434 EDT Calling to request a refill of Klonapin to be sent to Shayla [facility]en [facility]. documented in this encounter Plan of Treatment Upcoming Encounters Date Type Department Care Team (Late st Contact Info) Description 06/08/2024 13:30 EDT Office Visit [facility] [address] [place], [place] [phone] Michelle Shannon MD [address] [place] [phone] documented as of this encounter Visit Diagnoses Not on filedocumented in this encounter Discontinued Medications Medication Sig Discontinue Reason Start Date End Da te clonAZEPAM (KLONOPIN) 0.5 mg tablet take 1 tablet by mouth at bedtime Reorder 12/06/2011 01/17/2013 documented as of this encounter Care Teams Boat Canvas Maker Installer Relationship Specialty Start Date End Date Michelle Shannon MD [address] [place] [phone] PCP - General 09/08/11 documented as of this encounter
--- OUTSIDE RECORDS SUMMARY | 2024-04-28 16:00 | XMS_ITS | Encounter Summary ---
Author Organization [facility] Address [address] [place] [address] Care Team Providers Care Hospice Plan Administrator Name Role Phone Michelle Shannon MD Primary Care Provider + Reason for Visit * Reason Comments Other Encounter Details Date Type Department Care Team (Late st Contact Info) Description 01/25/2012 Refill [facility] Neurology - [address] [place] [address] [place], [place] [phone] Álvaro Goff MD PhD 1 [facility] [address] [place] [phone] Other Social History Tobacco Use Types Packs/Day [...] 1 Tab by mouth 2 times daily. 60 Tab 1 01/25/2012 03/24/2012 documented in this encounter Plan of Treatment Upcoming Encounters Date Type Department Care Team (Late st Contact Info) Description 06/08/2024 13:30 EDT Office Visit [facility] [address] [place], [place] [phone] Michelle Shannon MD [address] [place] [phone] documented as of this encounter Visit Diagnoses Not on filedocumented in this encounter Discontinued Medications Medication Sig Discontinue Reason Start Date End Da te topiramate (TOPAMAX) 50 mg tablet Take 1 Tab by mouth 2 times daily. PLS CALL FOR APPOINTMENT Reorder 11/23/2011 01/25/2012 documented as of this encounter Care Teams Hospice Plan Administrator Relationship Specialty Start Date End Date Michelle Shannon MD [address] [place] [phone] PCP - General 09/08/11 documented as of this encounter
--- OUTSIDE RECORDS SUMMARY | 2024-04-28 16:00 | XMS_ITS | Encounter Summary ---
Author Organization [facility] Address [address] [place] [address] Care Team Providers Care Hadoop Architect Name Role Phone Michelle Shannon MD Primary Care Provider + Reason for Visit * Reason Comments Depression Encounter Details Date Type Department Care Team (Late st Contact Info) Description 06/20/2013 9:00 EDT Office Visit [address] [phone] Rosemary Hussein MD [address] [place] [address], [facility] [address] [place] [phone] Mood disorder (CMS-HCC) (HCC-CMS) (Primary Dx); Bipolar disorder, unspecified (HCC-CMS) Social History Tobacco Use Types Packs/Day [...] Sign Reading Time Taken Comments Blood Pressure 148/94 06/20/2013 1010 EDT Pulse 113 06/20/2013 1010 EDT Temperature 37.4 ??C (99.4 ??F) 06/20/2013 1010 EDT Respiratory Rate - - Oxygen Saturation - - Inhaled Oxygen Concentration - - Weight 72.6 kg (160 lb) 06/20/2013 1010 EDT Height 165.1 cm (5' 5) 06/20/2013 1010 EDT Body Mass Index 26.63 06/20/2013 1010 EDT documented in this encounter Miscellaneous Notes * Addendum Note - Rosemary Lee MD - 06/21/2013 1027 EDTAddended by: ROSEMARY LEE on: 06/21/2013 10:27 Modules accepted: Orders documented in this encounter Plan of Treatment Upcoming Encounters Date Type Department Care Team (Late st Contact Info) Description 06/08/2024 13:30 EDT Office Visit [facility] 550 [facility] [address] [place] [address] Michelle Shannon MD [address] [place] [phone] documented as of this encounter Results * VITAMIN D (25,OH) (06/22/2013 8:45 EDT) 25OH Vitamin D Tot 30.8 ng/ml [facility] Comment: Reference Range: Deficient = <10 ng/ml Insufficient = 10-30 ng/ml Sufficient = 30-100 ng/ml Toxic = >100 ng/ml Blood specimen (specimen) 06/22/2013 8:45 EDT 06/22/2013 10:50 EDT Rosemary Hussein MD CHEMISTR Y & BLOOD GAS ORDERABLES [facility] [address] [place] [address] * FOLATE (06/22/2013 8:45 EDT) Folate 20.3 ng/mL [facility] Comment: Deficient: ??Less than 3.4 ng/mL Indeterminate: ??3.4-5.4 ng/mL Normal: ??Greater than 5.4 ng/mL Blood specimen (specimen) 06/22/2013 8:45 EDT 06/22/2013 10:50 EDT Rosemary Hussein MD CHEMISTR Y & BLOOD GAS ORDERABLES Performing Organization Address [facility] Co de Phone Number [facility] [address] [place] [address] * VITAMIN B12 (06/22/2013 8:45 EDT) Pathologist [facility] Vitamin B-12 448 211 - 911 pg/ml [facility] Blood specimen (specimen) 06/22/2013 8:45 EDT 06/22/2013 10:50 EDT Rosemary Hussein MD CHEMISTR Y & BLOOD GAS ORDERABLES Performing Organization Address [facility] de Phone Number [facility] [address] [place] [address] * (ABNORMAL) COMPREHENSIVE METABOLIC PANEL (CMP) (06/22/2013 8:45 EDT) [facility] Potassium 4.4 3.5 - 5.0 mEq/L [facility] Sodium 141 136 - 145 mEq/L [facility] Chloride 107 96 - 110 mEq/L [facility] CO2 18(L) 24 - 32 mEq/L [facility] Total Alkaline Phosphatase 87 38 - 126 U/L [facility] Bilirubin, Total 0.9 0.2 - 1.3 mg/dl [facility] AST 17 15 - 46 U/L [facility] ALT 23 9 - 52 U/L [facility] Albumin 4.3 3.4 - 4.9 g/dl [facility] Total Protein 7.3 6.5 - 8.3 g/dl [facility] Creatinine 1.08(H) 0.52 - 1.04 mg/dl [facility] GFR, Calculated 56(L) >60 ml/min/1.7 3m2 [facility] BUN 16 10 - 26 mg/dl [facility] Calcium 9.7 8.5 - 10.5 mg/dl [facility] Calculated Calcium 9.8 8.5 - 10.5 mg/dl [facility] Glucose, Serum 84 70 - 100 mg/dl [facility] Fasting? YES [facility] Blood specimen (specimen) 06/22/2013 8:45 EDT 06/22/2013 10:50 EDT Rosemary Hussein MD CHEMISTR Y & BLOOD GAS ORDERABLES Performing Organization Address [facility] de Phone Number [facility] [address] [place] [address] * THYROID CASCADE (06/22/2013 8:45 EDT) TSH 2.45 0.35 - 5.00 uIU/ml [facility] Comment: TSH cascade is not recommended for patients in which pituitary or hypothalamic disorders are suspected. Blood specimen (specimen) 06/22/2013 8:45 EDT 06/22/2013 10:50 EDT Rosemary Hussein MD CHEMISTR Y & BLOOD GAS ORDERABLES Performing Organization Address [facility] de Phone Number [facility] [address] [place] [address] * LIPID PROFILE (INCLUDES CHOLESTEROL, TRIGLYCERIDES, HDL, LDL) (06/22/2013 8:45 EDT) Cholesterol 187 mg/dl [facility] Comment: Desirable:<200 Borderline High:200-239 High:>ik=119 Triglycerides 174 mg/dl [facility] Comment: Normal:<150 Borderline High:150-199 High:200-499 Very High:>vk=974 HDL 38 mg/dl [facility] Comment: Low:<40 Normal:40-60 Desirable: >60 LDL, Calculated 114 mg/dl [facility] Comment: Optimal:<100 Near Optimal:100-129 Borderline High:130-159 High:160-189 Very High:>ig=332 Chol/HDL Ratio 4.9 [facility] Fasting? YES [facility] Non HDL Cholesterol 149 mg/dl [facility] Comment: Desirable:<130 Borderline:130-159 High: 160-189 Very High: >lh=313 Blood specimen (specimen) 06/22/2013 8:45 EDT 06/22/2013 10:50 EDT Rosemary Hussein MD CHEMISTR Y & BLOOD GAS ORDERABLES [facility] [address] [place] [address] documented in this encounter Visit Diagnoses Diagnosis Mood disorder (HCC-CMS)- Primary Unspecified episodic mood disorder Bipolar disorder, unspecified ([facility]-CMS) Bipolar disorder, unspecified documented in this encounter Discontinued Medications Medication Sig Discontinue Reason Start Date End Da te lorazepam (ATIVAN) 0.5 mg Tab Take 0.5 mg by mouth as needed. Alternate therapy 02/24/2011 06/20/2013 documented as of this encounter Historical Medications * This list may reflect changes made after this encounter. Medication Sig Dispensed Refills Start Date End Date metroNIDAZOLE (METROGEL) 0.75 % gel Apply topically 2 times daily. uurinpt-nxqzwnsndllye-kt ffeine (EXCEDRIN MIGRAINE) 250-250-65 mg per tabletIndications:migrai ne Take 1 Tablet by mouth every 6 hours as needed. added in this encounter Care Teams Hadoop Architect Relationship Specialty Start Date End Date Michelle Shannon MD [address] [place] [phone] PCP - General 09/08/11 documented as of this encounter
--- OUTSIDE RECORDS SUMMARY | 2024-04-28 16:00 | XMS_ITS | Encounter Summary ---
Author Organization 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 We discussed theapplication of relaxation and the goals of relaxation training. She was introduced to a formal relaxation training session, and was able to feel a brief sense of relaxation through the exercise. She was instructed in the practice of relaxation at home. We also discussed some practical details of attention to posture while she is working on her home based projects. She was also instructed in the beginning uses of applied relaxation. Finally, we discussed the stressors currently associated with her disability. We will meet in 2-3 weeks. Plan: Cue controlled relaxation Applied Training CBT \Time in session: 50 minutes documented in this encounter Plan of Treatment Upcoming Encounters Date Type Department Care Team (Late st Contact Info) Description 06/08/2024 13:30 EDT Office Visit [facility] 550 [facility] [address] [place] [address] Michelle Shannon MD [address] [place] [phone] documented as of this encounter Visit Diagnoses Diagnosis Other pain disorders related to psychological factors- Primary documented in this encounter Care Teams Assistant Activities Director Relationship Specialty Start Date End Date Apolinar Lee MD [address] [place] [phone] PCP - General 01/16/09 09/07/11 documented as of this encounter
--- OUTSIDE RECORDS SUMMARY | 2024-04-28 16:00 | XMS_ITS | Encounter Summary ---
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 Goals and Plans for Treatment: Ms Blair has a multiple year history of migraines, and has had little success with medication managing her migraine pain. She is interested in learning a behavioral approach to headache management. She has recently started some yoga classes, and stress management work, and she believes learning tomanage her headache behaviorally would add to her current skills based classes. She is currently on disability secondary to her headache. She spends her day working at [employer]. She does visit with friends, but is somewhat isolated during the day. Currently, her headaches wake her in the night, and she is experiencing headache almost daily. Her mood is even. She is currently in therapy with a counselor, she has no suicidal ideation or intent. Her level of muscle activity is elevated with SEMG muscle scan in her frontalis, temporalis, SCM, CPS, and trapezius muscles. We discussed what treatment would involves 3-5 50 minute session of behavioral and cognitive behavioral strategies with a focus on headache management. Plan: Relaxation training with biofeedback assist Cue controlled relaxation training Applied relaxation training Cognitive behavioral therapy. Time in treatment today is 55 minutes. documented in this encounter Plan of Treatment Upcoming Encounters Date Type Department Care Team (Late st Contact Info) Description 06/08/2024 13:30 EDT Office Visit [facility] 550 [facility] [address] [place], [place] [phone] Michelle Shannon MD [address] [place] [phone] documented as of this encounter Visit Diagnoses Diagnosis Other pain disorders related to psychological factors- Primary documented in this encounter Care Teams Retail Service Technician Relationship Specialty Start Date End Date Apolinar Lee MD [address] [place] [phone] PCP - General 01/16/09 09/07/11 documented as of this encounter
--- OUTSIDE RECORDS SUMMARY | 2024-04-28 16:00 | XMS_ITS | Encounter Summary ---
Author Organization [facility] Address [address] [place] [address] Care Team Providers Care Portable Feed Mill Operator Name Role Phone Apolinar Lee MD Primary Care Provider [phone] [phone] Michelle Shannon MD Primary Care Provider + Reason for Visit * Reason Onset Date Comments Appointment Related 09/07/2011 Encounter Details Date Type Department Care Team (Late st Contact Info) Description 09/07/2011 Orders Only [facility] Spine Program - [address] [address] Ruslan García MD [address] [place] [phone] Left knee pain (Primary Dx) Social History Tobacco Use [...] Info) Description 06/08/2024 13:30 EDT Office Visit [facility] [address] [place] [address] Michelle Shannon MD [address] [place] [phone] documented as of this encounter Procedures Procedure Name Priority Date/Time Associated Diagnosis Comments KNEE 4 OR MORE VIEWS Routine 09/09/2011 9:49 EST Left knee pain documented in this encounter Results * KNEE 4 OR MORE VIEWS (09/09/2011 9:49 EST) Anatomical Region Laterality Modality Other 09/09/2011 9:49 EST 09/09/2011 13:53 EST Narrative 09/09/2011 13:53 EST KNEE 4 OR MORE VIEWS ??Sep 09, 2011 09:49:00 AM Clinical History/Comments: 719.46-PAIN IN JOINT, LOWER [id number] Left Knee pain Comparison: Left knee radiographs August 11, 2004. Findings: Left knee PA, flexion PA lateral weight-bearing views obtained and compared with the prior study. Supplemented with axial sunrise patellar views. No acute fracture, dislocation or joint effusion is evident. There are mild degenerative changes involving the medial femorotibial compartment and patellofemoral compartment. No change in a focal 0.8 cm sclerotic lesion in the lateral femoral condyle, which likely represents a bone island. Right knee PA, flexion PA lateral weight-bearing views obtained. Supplemented with axial sunrise patellar views. No acute fracture, dislocation or joint effusion is evident. There are mild degenerative changes involving the medial femorotibial compartment and patellofemoral compartment. Procedure Note 09/09/2011 KNEE 4 OR MORE VIEWS Sep 09, 2011 09:49:00 AM Clinical History/Comments: 719.46-PAIN IN JOINT, LOWER [id number] Left Knee pain Comparison: Left knee radiographs August 11, 2004. Findings: Left knee PA, flexion PA lateral weight-bearing views obtained and compared with the prior study. Supplemented with axial sunrise patellar views. No acute fracture, dislocation or joint effusion is evident. There are mild degenerative changes involving the medial femorotibial compartment and patellofemoral compartment. No change in a focal 0.8 cm sclerotic lesion in the lateral femoral condyle, which likely represents a bone island. Right knee PA, flexion PA lateral weight-bearing views obtained. Supplemented with axial sunrise patellar views. No acute fracture, dislocation or joint effusion is evident. There are mild degenerative changes involving the medial femorotibial compartment and patellofemoral compartment. Ruslan García MD IMG DIAGNOSTIC ROGERIO GING ORDERABLES documented in this encounter Visit Diagnoses Diagnosis Left knee pain- Primary Pain in joint, lower leg documented in this encounter Care Teams Portable Feed Mill Operator Relationship Specialty Start Date End Date Apolinar Lee MD [address] [place] [phone] PCP - General 01/16/09 09/07/11 Michelle Shannon MD [address] [place] [phone] PCP - General 09/08/11 documented as of this encounter
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
--- OUTSIDE RECORDS SUMMARY | 2024-04-28 16:00 | XMS_ITS | Encounter Summary ---
Author Organization [facility] Address [address] [place] [address] Care Team Providers Care Sales Support Associate Name Role Phone Apolinar Lee MD Primary Care Provider [phone] Reason for Visit * Reason Comments Migraine Encounter Details Date Type Department Care Team (Latest Contact Info) Description 01/05/2011 11:00 EDT Office Visit [facility] - [address] [address] Unknown, Provider, Chika Lopez, PhD Other pain disorders related to psychological factors (Primary Dx) Discharge Disposition: Auto Discharge Social History Tobacco Use Types Packs/Day Years Used Date Smoking Tobacco: Never Assessed Sex and Gender Information Value Date Recorded Sex Assigned at Not on file Gender Identity Female 11/10/2020 8:41 EST Sexual Orientation Straight 12/07/2023 23 :06 EDT documented as of this encounter Discharge Disposition Disposition Code Departure Means Destination Auto Discharge documented in this encounter Progress Notes * Chika Lopez - 01/24/2011 1305 EDT Ms. Blair continues to experience significant headache. She has been attempting to apply some of the behavioral strategies she has been learning, but has had limited success. She indicates that her sleep wake cycle is quite changeable, and that she is frequently awake much of the night playing computer games. We discussed the negative consequences of poor sleep hygiene on managing headache. Finally, she indicated that she is somewhat overwhelmed by the state of her apartment. We discussedthe strategy of breaking down large tasks into more manageable pieces. Time in session 55 minutes. documented in this encounter Plan of Treatment Upcoming Encounters Date Type Department Care Team (Late st Contact Info) Description 06/08/2024 13:30 EDT Office Visit [facility] [address] [facility] [address] [place] [address] Michelle Shannon MD [address] [place] [phone] documented as of this encounter Visit Diagnoses Diagnosis Other pain disorders related to psychological factors- Primary documented in this encounter Care Teams Sales Support Associate Relationship Specialty Start Date End Date Apolinar Lee MD [address] [place] [phone] PCP - General 01/16/09 09/07/11 documented as of this encounter
--- OUTSIDE RECORDS SUMMARY | 2024-04-28 16:00 | XMS_ITS | Encounter Summary ---
Author Organization [facility] Address [address] [place] [address] Care Team Providers Care Endless Steamer Tender Name Role Phone Apolinar Lee MD Primary Care Provider [phone] Reason for Visit * Reason Onset Date Comments Medication Management 09/14/2010 Encounter Details Date Type Department Care Team (Late st Contact Info) Description 09/14/2010 Telephone [facility] - [address] [place], [place] [phone] Chela Hernadez application helper Management Social History Tobacco Use Types Packs/Day Years Used Date Smoking Tobacco: Never Assessed Sex and Gender Information Value Date Recorded Sex Assigned at Not on file Gender Identity Female 11/10/2020 8:41 EST Sexual Orientation Straight 12/07/2023 23 :06 EDT documented as of this encounter Miscellaneous Notes * Telephone Encounter - Chela Hernadez RN - 09/14/2010 1104 EST Called Shayla Lugo on [address] regarding the increase in Topamax--apparently Topamax increases the concentration of BCP--may cause failure of the BCP-needs to contact the physicain who orders the BCP-Chela Pedroza is aware---Chela documented in this encounter Plan of Treatment Upcoming Encounters Date Type Department Care Team (Late st Contact Info) Description 06/08/2024 13:30 EDT Office Visit [facility] [address] [place], [place] [phone] Michelle Shannon MD [address] [place] [phone] documented as of this encounter Visit Diagnoses Not on filedocumented in this encounter Care Teams Endless Steamer Tender Relationship Specialty Start Date End Date Apolinar Lee MD [address] [place] [phone] PCP - General 01/16/09 09/07/11 documented as of this encounter
--- OUTSIDE RECORDS SUMMARY | 2024-04-28 16:00 | XMS_ITS | Encounter Summary ---
Author Organization [facility] Address [address] [place] [address] Care Team Providers Care Media Operator Name Role Phone Michelle Shannon MD Primary Care Provider + Reason for Visit * Reason Onset Date Comments Medications Refill 12/27/2011 Encounter Details Date Type Department Care Team (Late st Contact Info) Description 12/27/2011 Refill [facility] - [address] [phone] [place] [address] Medications Refill Social History Tobacco Use Types Packs/Day Years Used Date Smoking Tobacco: Never Assessed Sex and Gender Information Value Date Recorded Sex Assigned at Not on file Gender Identity Female 11/10/2020 8:41 EST Sexual Orientation Straight 12/07/2023 23 :06 EDT documented as of this encounter Miscellaneous Notes * Telephone Encounter - Juliana Díaz RN - 12/27/2011 0938 EDT Clonazepam refill faxed to patient's pharmacy on 12/12/11, #30 with 5 refills. Pt made aware. * Telephone Encounter - Rebecca Mason - 12/27/2011 0925 EDT Patient needs to have script filled Klonopin - [facility] documented in this encounter Plan of Treatment Upcoming Encounters Date Type Department Care Team (Late st Contact Info) Description 06/08/2024 13:30 EDT Office Visit [facility] [address] [place], [place] [phone] Michelle Shannon MD [address] [place] [phone] documented as of this encounter Visit Diagnoses Not on filedocumented in this encounter Care Teams Media Operator Relationship Specialty Start Date End Date Michelle Shannon MD [address] [place] [phone] PCP - General 09/08/11 documented as of this encounter
--- OUTSIDE RECORDS SUMMARY | 2024-04-28 16:00 | XMS_ITS | Encounter Summary ---
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); RBD (REM behavioral disorder) Social History Tobacco Use Types Packs/Day Years Used Date Smoking Tobacco: Never Assessed Sex and Gender Information Value Date Recorded Sex Assigned at Not on file Gender Identity Female 11/10/2020 8:41 EST Sexual Orientation Straight 12/07/2023 23 :06 EDT documented as of this encounter Last Filed Vital Signs Vital Sign Reading Time Taken Comments Blood Pressure 108/60 10/11/2012 1517 EST Pulse 88 10/11/2012 1517 EST Temperature - - Respiratory Rate - - Oxygen Saturation - - Inhaled Oxygen Concentration - - Weight 71.2 kg (157 lb) 10/11/2012 1517 EST Height - - Body Mass Index 26.13 03/24/2012 1027 EDT documented in this encounter Progress Notes * Dean Turner MD - 10/13/2012 0806 EST [facility] PROGRESS/FOLLOWUP NOTE - 10/11/2012 SUBJECTIVE: Jane returns today for followup regarding her REM sleep behavior disorder symptoms and also to discuss her narcolepsy symptoms. She has been followed by Dr Aguero in psychiatry regarding her narcolepsy symptoms in conjunction with treatment of her other psychiatric conditions. Unfortunately, Dr Aguero relocated and at this point Ms Blair does not have anybody primarily taking care of hernarcolepsy symptoms. She has felt very tired recently. Her dog has been ill and up a lot at night and therefore Ms Blair reports that she is likely getting less than six hours of sleep at night. Anyhas had pretty stable amount of unusual behaviors at night, which has not accelerated since her last visit. She continues to take clonazepam 0.5 mg at bedtime for her RBD symptoms. She continues on Adderall XR 20 mg twice daily for her daytime sleepiness symptoms. She takes melatonin intermittentlyas well to help sleep. Currently psychiatric medicines have not been changed and are being refilledby Dr Shannon. The patient's other medications are reviewed in the electronic medical record. OBJECTIVE: Blood pressure 108/60, pulse 88, weight 157 pounds. General exam reveals an alert, pleasant woman. Nasopharynx patent proximally. Oropharynx: Mallampati II with pink mucosa. Neck supple, no lymphadenopathy. Chest clear to auscultation bilaterally. Cardiovascular: Regular rate and rhythm,no murmurs. 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 She continues on clonazepam 0.5 mg nightly for treatment of her RBD. I would be happy to take over her prescription of Adderall-XR 20 mg twice daily for treatment of her daytime sleepiness. At this point, I do not think a dose change is needed as I feel like she needs to improve her sleep hygiene which she thinks will occurwith improvement in her dog's health. PLAN: 1. Narcolepsy without cataplexy: We will continue Adderall-XR 20 mg twice daily. No dosing changes at this time. I advised the patient to get more sleep at night. 2. REM sleep behavior disorder: Her symptoms are stable and I would continue clonazepam 0.5 mg at bedtime. We have a 6-month followup in place or the patient will call sooner if needed. Electronically Signed by Dean Turner MD 10/13/2012 09:48 Dean Turner MD [facility] Sleep Diplomate - Dean Turner MD - MLD Job ID: SM Doc ID: [id number] Ext Doc ID: [id number] cc: Michelle Shannon MD * Dean Turner MD - 10/12/2012 1325 EST This office note has been dictated. documented in this encounter Plan of Treatment Upcoming Encounters Date Type Department Care Team (Late st Contact Info) Description 06/08/2024 13:30 EDT Office Visit [facility] [address] [facility] [address] [place], [place] [phone] Michelle Shannon MD [address] [place] [phone] documented as of this encounter Visit Diagnoses Diagnosis Narcolepsy without cataplexy(347.00)- Primary Narcolepsy without cataplexy RBD (REM behavioral disorder) REM sleep behavior disorder documented in this encounter Discontinued Medications Medication Sig Discontinue Reason Start Date End Da te clonAZEPAM (KLONOPIN) 0.5 mg tablet take 1 tablet by mouth at bedtime Duplicate Therapy 01/20/2011 10/11/2012 documented as of this encounter Historical Medications * This list may reflect changes made after this encounter. Medication Sig Dispensed Refills Start Date End Date IBUPROFEN (ADVIL ORAL) Take by mouth daily as needed. 05/19/2023 HYDROmorphone (DILAUDID) 2 mg tablet Take 2 mg by mouth every 6 hours as needed. 07/10/2013 added in this encounter Care Teams Transformation Manager Relationship Specialty Start Date End Date Michelle Shannon MD [address] [place] [phone] PCP - General 09/08/11 documented as of this encounter
--- OUTSIDE RECORDS SUMMARY | 2024-04-28 16:00 | XMS_ITS | Encounter Summary ---
Author Organization [facility] Address [address] [place] [address] Care Team Providers Care Food And Beverage Analyst Name Role Phone Apolinar Lee MD Primary Care Provider [phone] Reason for Visit * Reason Comments Other Encounter Details Date Type Department Care Team (Late st Contact Info) Description 04/14/2011 Refill [facility] - [address] [phone] [place] [address] Other Social History Tobacco Use Types Packs/Day [...] by mouth at bedtime 30 Tab 5 04/14/2011 12/06/2011 documented in this encounter Miscellaneous Notes * Telephone Encounter - Juliana Díaz RN - 04/14/2011 1431 EDT Called in Clonazepam refills as ordered, to Shayla Manley. documented in this encounter Plan of Treatment Upcoming Encounters Date Type Department Care Team (Late st Contact Info) Description 06/08/2024 13:30 EDT Office Visit [facility] [address] [facility] [address] [place] [address] Michelle Shannon MD [address] [place] [phone] documented as of this encounter Visit Diagnoses Not on filedocumented in this encounter Care Teams Food And Beverage Analyst Relationship Specialty Start Date End Date Apolinar Lee MD [address] [place] [phone] PCP - General 01/16/09 09/07/11 documented as of this encounter
--- OUTSIDE RECORDS SUMMARY | 2024-04-28 16:00 | XMS_ITS | Encounter Summary ---
Author Organization [facility] Address [address] [place] [address] Care Team Providers Care Board Certified Orthodontist Name Role Phone Michelle Shannon MD Primary Care Provider + Reason for Visit * Reason Comments Other Encounter Details Date Type Department Care Team (Late st Contact Info) Description 12/06/2011 Refill [facility] - [address] [phone] [place] [address] Other Social History Tobacco Use Types Packs/Day [...] by mouth at bedtime 30 Tab 5 12/06/2011 01/17/2013 documented in this encounter Miscellaneous Notes * Telephone Encounter - Juliana Díaz RN - 12/07/2011 0933 EDT Faxed clonazepam refill as ordered to patient's pharmacy. documented in this encounter Plan of Treatment Upcoming Encounters Date Type Department Care Team (Late st Contact Info) Description 06/08/2024 13:30 EDT Office Visit [facility] [address] [place], [place] [phone] Michelle Shannon MD [address] [place] [phone] documented as of this encounter Visit Diagnoses Not on filedocumented in this encounter Discontinued Medications Medication Sig Discontinue Reason Start Date End Da te clonAZEPAM (KLONOPIN) 0.5 mg tablet take 1 tablet by mouth at bedtime Reorder 04/14/2011 12/06/2011 documented as of this encounter Care Teams Board Certified Orthodontist Relationship Specialty Start Date End Date Michelle Shannon MD [address] [place] [phone] PCP - General 09/08/11 documented as of this encounter
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
--- OUTSIDE RECORDS SUMMARY | 2024-04-28 16:00 | XMS_ITS | Encounter Summary ---
Author Organization [facility] Address [address] [place] [address] Care Team Providers Care Tax Associate Attorney Name Role Phone Michelle Shannon MD Primary Care Provider + Reason for Visit * Reason Onset Date Comments Medications Refill 05/07/2013 Encounter Details Date Type Department Care Team (Late st Contact Info) Description 05/07/2013 Refill [facility] Sleep Program - [address] [phone] [place] [address] Medications Refill Social History Tobacco Use Types [...] mouth 2 times daily. 60 Cap 0 05/07/2013 06/20/2013 dextroamphetamine-amphetam ine (ADDERALL XR) 20 mg XR capsule Take 1 Cap by mouth 2 times daily. 60 Cap 0 05/07/2013 05/07/2013 documented in this encounter Miscellaneous Notes * Telephone Encounter - Juliana Díaz RN - 05/08/2013 0844 EDT Left message for pt to let know (Adderall) prescription ready [facility]. * Telephone Encounter - Juliana Díaz RN - 05/07/2013 1054 EDT Called pt and let her know will be in tomorrow to write her prescription refill (no provider agreeing to write this morning). Pt agreed. Will call her when prescription ready. * Telephone Encounter - Geo Sharma - 05/07/2013 0811 EDT Calling to request a refill of Adderall to be picked up today. She is out of medication and would like to know if another provider would refill this medication. Please advise. documented in this encounter Plan of Treatment Upcoming Encounters Date Type Department Care Team (Late st Contact Info) Description 06/08/2024 13:30 EDT Office Visit [facility] [address] [place] [address] Michelle Shannon MD [address] [place] [phone] documented as of this encounter Visit Diagnoses Not on filedocumented in this encounter Discontinued Medications Medication Sig Discontinue Reason Start Date End Da te dextroamphetamine-ampheta mine (ADDERALL XR) 20 mg XR capsule Take 1 Cap by mouth 2 times daily. Reorder 03/26/2013 05/07/2013 dextroamphetamine-ampheta mine (ADDERALL XR) 20 mg XR capsule Take 1 Cap by mouth 2 times daily. Reorder 05/07/2013 05/07/2013 documented as of this encounter Care Teams Tax Associate Attorney Relationship Specialty Start Date End Date Michelle Shannon MD [address] [place] [phone] PCP - General 09/08/11 documented as of this encounter
--- OUTSIDE RECORDS SUMMARY | 2024-04-28 16:00 | XMS_ITS | Encounter Summary ---
Author Organization [facility] Address [address] [place] [address] Care Team Providers Care Wood Patternmaker Apprentice Name Role Phone Michelle Shannon MD Primary Care Provider + Reason for Visit * Reason Comments Headache Encounter Details Date Type Department Care Team (Late st Contact Info) Description 03/24/2012 10:30 EDT Office Visit [facility] Neurology - [address] [phone] Álvaro Goff MD PhD 1 [facility] [address] [place] [phone] Mgrn elvie lynn [facility] mgrn (Primary Dx) Social History Tobacco Use Types Packs/Day Years Used Date Smoking Tobacco: Never Assessed Sex and Gender Information Value Date Recorded Sex Assigned at Not on file Gender Identity Female 11/10/2020 8:41 EST Sexual Orientation Straight 12/07/2023 23 :06 EDT documented as of this encounter Last Filed Vital Signs Vital Sign Reading Time Taken Comments Blood Pressure 90/62 03/24/2012 1027 EDT Pulse 89 03/24/2012 1027 EDT Temperature - - Respiratory Rate 18 03/24/2012 1027 EDT Oxygen Saturation - - Inhaled Oxygen Concentration - - Weight 67.1 kg (148 lb) 03/24/2012 1027 EDT Height 165.1 cm (5' 5) 03/24/2012 1027 EDT Body Mass Index 24.63 03/24/2012 1027 EDT documented in this encounter Ordered Prescriptions Prescription Sig Dispensed Refills Start Date End Da te naratriptan (AMERGE) 2.5 mg tabletIndications:migrain e Take as directed. Indications: MIGRAINE 12 Tab 11 03/24/2012 02/06/2021 topiramate (TOPAMAX) 50 mg tabletIndications:Migrain e with aura, without mention of intractable migraine without mention of status migrainosus Take 1 Tab by mouth 2 times daily. 180 Tab 3 03/24/2012 08/30/2017 documented in this encounter Progress Notes * OCCUPATIONAL THERAPY AIDE, FERNY 2 - 03/30/2012 0806 EDT * Álvaro Goff MD - 03/27/2012 0942 EDT NEUROLOGY HEALTH CARE SERVICE PROGRESS/FOLLOWUP NOTE - 03/24/2012 SUBJECTIVE: Jane Blair is a 36-year-old woman with a history of migraine on an episodic basis withaura, as well as narcolepsy and REM sleep disturbance. She was last seen in clinic for her initial evaluation on 09/10/2010. She was also seen by Dr Dean Turner in the sleep disorders clinic on 02/24/2011. At her last visit, she was urged to discontinue Gianna, hormonal contraceptives. She did try to have an intrauterine device fitted but had difficulties with placement and is now continuing on Copan. She did increase topiramate to 50 mg twice daily, which she states is helping a lot withher migraine symptoms. She tapered off caffeine and is now just drinking decaffeinated Sleepytime tea or water. She tried sumatriptan and almotriptan, which were not effective and has received a prescription for naratriptan but has not yet needed to use it. She states that her headaches now have been reduced from on average of 6 days per month down to approximately 3 days per month and all of them are mini headaches, which are not severe and self-limiting. She is very pleased with her currentmanagement of migraine. OBJECTIVE: On examination, blood pressure is 90/62, pulse 89, respirations 18, weight 148 pounds, body mass index 24.6. Currently with 4/10 abdominal pain. She has normal speech, language and recall,normal coordinated eye movements, facial movements, limb movements and gait. IMPRESSION: Jane Blair has a history of episodic migraine with aura, which is currently under excellent control. She wishes to have her prescriptions refilled for topiramate and for naratriptan. I did so with a total of refills for one year's time. She will return to clinic on an as-needed basis at her discretion and that of her primary care provider, Dr Michelle Shannon. Electronically Signed by Álvaro Goff MD,PhD 04/11/2012 10:06 Álvaro Goff MD,PhD - Álvaro Goff MD,PhD - Job ID: SM Doc ID: [id number] Ext Doc ID: [id number] cc: Michelle Shannon MD * Álvaro Goff MD - 03/24/2012 1041 EDT This note has been dictated. documented in this encounter Plan of Treatment Upcoming Encounters Date Type Department Care Team (Late st Contact Info) Description 06/08/2024 13:30 EDT Office Visit [facility] [address] [facility] [address] [place] [address] Michelle Shannon MD [address] [place] [phone] documented as of this encounter Visit Diagnoses Diagnosis Migraine with aura, without mention of intractable migraine without mention of status migrainosus- Primary documented in this encounter Discontinued Medications Medication Sig Discontinue Reason Start Date End Da te topiramate (TOPAMAX) 50 mg tablet Take 1 Tab by mouth 2 times daily. Reorder 01/25/2012 03/24/2012 naratriptan (AMERGE) 2.5 mg tablet 2.5 mg at onset of headache, may repeat in 4 hours if needed. Max of 2 tabs in 24 hours, treat no more that 2 days a week and no more than 8 days a month Reorder 02/02/2012 03/24/2012 documented as of this encounter Care Teams Wood Patternmaker Apprentice Relationship Specialty Start Date End Date Michelle Shannon MD [address] [place] [phone] PCP - General 09/08/11 documented as of this encounter
--- OUTSIDE RECORDS SUMMARY | 2024-04-28 16:00 | XMS_ITS | Encounter Summary ---
Author Organization [facility] Address [address] [place] [address] Care Team Providers Care Engineer Exhauster Name Role Phone Michelle Shannon MD Primary Care Provider + Reason for Visit * Reason Comments Other Encounter Details Date Type Department Care Team (Late st Contact Info) Description 11/23/2011 Telephone [facility] Neurology - [address] [facility] [address] [place], [place] [phone] Álvaro Goff MD PhD 1 [facility] [address] [place] [phone] Other Social History Tobacco Use Types Packs/Day [...] 2 times daily. PLS CALL FOR APPOINTMENT 60 Tab 1 11/23/2011 01/25/2012 documented in this encounter Plan of Treatment Upcoming Encounters Date Type Department Care Team (Late st Contact Info) Description 06/08/2024 13:30 EDT Office Visit [facility] [address] [place], [place] [phone] Michelle Shannon MD [address] [place] [phone] documented as of this encounter Visit Diagnoses Not on filedocumented in this encounter Discontinued Medications Medication Sig Discontinue Reason Start Date End Da te topiramate (TOPAMAX) 50 mg tablet Take 1 Tab by mouth 2 times daily. Reorder 03/04/2011 11/23/2011 documented as of this encounter Care Teams Engineer Exhauster Relationship Specialty Start Date End Date Michelle Shannon MD [address] [place] [phone] PCP - General 09/08/11 documented as of this encounter
--- OUTSIDE RECORDS SUMMARY | 2024-04-28 16:00 | XMS_ITS | Encounter Summary ---
Author Organization [facility] Address [address] [place] [address] Care Team Providers Care Hemotherapist Name Role Phone Michelle Shannon MD Primary Care Provider + Reason for Visit * Reason Onset Date Comments Medications Refill 02/08/2013 Encounter Details Date Type Department Care Team (Late st Contact Info) Description 02/08/2013 Refill [facility] Sleep Program - [address] [phone] [place] [address] Medications Refill Social History Tobacco Use Types [...] mouth 2 times daily. 60 Cap 0 02/08/2013 03/26/2013 documented in this encounter Miscellaneous Notes * Telephone Encounter - Juliana Díaz RN - 02/08/2013 1634 EDT Mailed adderall prescription to [facility] in [place] as requested. * Telephone Encounter - Summer Bach - 02/08/2013 1523 EDT amphetamine-dextroamphetamine (ADDERALL XR) 20 mg XR capsule, Take 1 Cap by mouth 2 times daily. Please mail to pharmacy, please call pt with any questions. Pt moved, would like prescription sent to [facility] in [place], [place]. documented in this encounter Plan of Treatment Upcoming Encounters Date Type Department Care Team (Late st Contact Info) Description 06/08/2024 13:30 EDT Office Visit [facility] [address] [place], [place] [phone] Michelle Shannon MD [address] [place] [phone] documented as of this encounter Visit Diagnoses Not on filedocumented in this encounter Discontinued Medications Medication Sig Discontinue Reason Start Date End Da te amphetamine-dextroampheta mine (ADDERALL XR) 20 mg XR capsule Take 1 Cap by mouth 2 times daily. Reorder 01/09/2013 02/08/2013 documented as of this encounter Care Teams Hemotherapist Relationship Specialty Start Date End Date Michelle Shannon MD [address] [place] [phone] PCP - General 09/08/11 documented as of this encounter
--- OUTSIDE RECORDS SUMMARY | 2024-04-28 16:00 | XMS_ITS | Encounter Summary ---
Author Organization [facility] Address [address] [place] [address] Care Team Providers Care Solderer Torch Name Role Phone Apolinar Lee MD Primary Care Provider [phone] [phone] Encounter Details Date Type Department Care Team (Latest Contact Info) Description 08/30/2011 11:23 EST - 08/30/2011 11:25 [facility] Hospital Encounter [facility] - [address] [address] Michelle Shannon MD [address] [place] [phone] Discharge Disposition: Home or Self Care Social History Tobacco Use Types Packs/Day Years Used Date Smoking Tobacco: Never Assessed Sex and Gender Information Value Date Recorded Sex Assigned at Not on file Gender Identity Female 11/10/2020 8:41 EST Sexual Orientation Straight 12/07/2023 23 :06 EDT documented as of this encounter Medications at Time of Discharge Medication Sig Dispensed Refills Start Date End Date almotriptan (AXERT) 12.5 mg tablet Take 1 Tab by mouth once as needed for Migraine for 1 dose. may repeat in 2 hours if needed--max 2/day 2 days/week 12 Tab 3 11/12/2010 01/31/2012 amphetamine-dextroamphet amine (ADDERALL XR) 10 mg XR capsule Take 20 mg by mouth 2 times daily. Takes one tab(am) and 2 tabs(pm). 09/10/2010 10/26/2012 aripiprazole (ABILIFY) 10 mg tablet Take 10 mg by mouth daily. 08/30/2017 clonAZEPAM (KLONOPIN) 0.5 mg tablet take 1 tablet by mouth at bedtime 30 Tab 5 04/14/2011 12/06/2011 clonAZEPAM (KLONOPIN) 0.5 mg tablet take 1 tablet by mouth at bedtime 30 Tab 1 01/20/2011 10/11/2012 duloxetine (CYMBALTA) 30 mg capsule Take 60 mg by mouth daily. 06/19/2010 09/16/2017 LEVONORGESTREL-ETH ESTRA (KATHY ORAL) Take by mouth daily. 09/10/20102016 lorazepam (ATIVAN) 0.5 mg Tab Take 0.5 mg by mouth as needed. 02/24/2011 06/20/2013 Melatonin 3 mg Tab Take by mouth at bedtime. 09/10/2010 05/26/2012 sumatriptan (IMITREX) 100 mg tablet Take 1 Tab by mouth once as needed for Migraine for 1 dose. Take as directed. 12 Tab 6 09/10/2010 02/02/2012 topiramate (TOPAMAX) 50 mg tablet Take 1 Tab by mouth 2 times daily. 60 Tab 5 03/04/2011 11/23/2011 documented as of this encounter Discharge Disposition Disposition Code Departure Means Destination Home or Self Care documented in this encounter Plan of Treatment Upcoming Encounters Date Type Department Care Team (Late st Contact Info) Description 06/08/2024 13:30 EDT Office Visit [facility] [address] [facility] [address] [place], [place] [phone] Michelle Shannon MD [address] [place] [phone] documented as of this encounter Visit Diagnoses Not on filedocumented in this encounter Care Teams Solderer Torch Relationship Specialty Start Date End Date Apolinar Lee MD [address] [place] [phone] PCP - General 01/16/09 09/07/11 documented as of this encounter
--- OUTSIDE RECORDS SUMMARY | 2024-04-28 16:00 | XMS_ITS | Encounter Summary ---
Author Organization [facility] Address [address] [place] [address] Care Team Providers Care Freight Caller Name Role Phone Michelle Shannon MD Primary Care Provider + Reason for Visit * Reason Comments Other Encounter Details Date Type Department Care Team (Late st Contact Info) Description 01/31/2012 Refill [facility] Neurology - [address] [place] [address] [place], [place] [id number] Álvaro Goff MD PhD 1 [facility] [address] [place] [address] Other Social History Tobacco Use Types Packs/Day Years Used Date Smoking Tobacco: Never Assessed Sex and Gender Information Value Date Recorded Sex Assigned at Not on file Gender Identity Female 11/10/2020 8:41 EST Sexual Orientation Straight 12/07/2023 23 :06 EDT documented as of this encounter Ordered Prescriptions Prescription Sig Dispensed Refills Start Date End Da te AXERT 12.5 mg tablet take 1 tablet by mouth immediately May repeat one time after 2 hours MAXIMUM 2 DAILY AND TWICE PER WEEK 12 Tab 0 01/31/2012 02/02/2012 documented in this encounter Plan of Treatment Upcoming Encounters Date Type Department Care Team (Late st Contact Info) Description 06/08/2024 13:30 EDT Office Visit [facility] 550 [facility] [address] [place] [address] Michelle Shannon MD [address] [place] [phone] documented as of this encounter Visit Diagnoses Not on filedocumented in this encounter Discontinued Medications Medication Sig Discontinue Reason Start Date End Da te almotriptan (AXERT) 12.5 mg tablet Take 1 Tab by mouth once as needed for Migraine for 1 dose. may repeat in 2 hours if needed--max 2/day 2 days/week Reorder 11/12/2010 01/31/2012 documented as of this encounter Care Teams Freight Caller Relationship Specialty Start Date End Date Michelle Shannon MD [address] [place] [phone] PCP - General 09/08/11 documented as of this encounter
--- OUTSIDE RECORDS SUMMARY | 2024-04-28 16:00 | XMS_ITS | Encounter Summary ---
Author Organization [facility] Address [address] [place] [address] Care Team Providers Care Real Estate Administrative Assistant Name Role Phone Apolinar Lee MD Primary Care Provider [phone] Michelle Shannon MD Primary Care Provider + Reason for Visit * Reason Comments Other Encounter Details Date Type Department Care Team (Late st Contact Info) Description 02/20/2011 Refill [facility] Sleep Program - [address] [place] [address] [place], [place] [phone] [place] [address] Other Social History Tobacco Use Types Packs/Day Years Used Date Smoking Tobacco: Never Assessed Sex and Gender Information Value Date Recorded Sex Assigned at Not on file Gender Identity Female 11/10/2020 8:41 EST Sexual Orientation Straight 12/07/2023 23 :06 EDT documented as of this encounter Ordered Prescriptions Prescription Sig Dispensed Refills Start Date End Da te Melatonin 3 mg Tab TAKE 1 TABLET BY MOUTH AT BEDTIME 30 Tab 6 02/20/2011 02/24/2011 documented in this encounter Plan of Treatment Upcoming Encounters Date Type Department Care Team (Late st Contact Info) Description 06/08/2024 13:30 EDT Office Visit [facility] [address] [place] [address] [place], [place] [phone] Michelle Shannon MD [address] [place] [phone] documented as of this encounter Visit Diagnoses Not on filedocumented in this encounter Discontinued Medications Medication Sig Discontinue Reason Start Date End Da te Melatonin 3 mg Tab take 1 tablet by mouth at bedtime Reorder 12/27/2010 02/20/2011 documented as of this encounter Care Teams Real Estate Administrative Assistant Relationship Specialty Start Date End Date Apolinar Lee MD [address] [place] [phone] PCP - General 01/16/09 09/07/11 Michelle Shannon MD [address] [place] [phone] PCP - General 09/08/11 documented as of this encounter
--- OUTSIDE RECORDS SUMMARY | 2024-04-28 16:00 | XMS_ITS | Encounter Summary ---
Author Organization [facility] Address [address] [place] [address] Care Team Providers Care Functional Consultant Name Role Phone Apolinar Lee MD Primary Care Provider [phone] Encounter Details Date Type Department Care Team (Latest Contact Info) Description 06/29/2010 10:02 EDT - 06/29/2010 10:03 EDT Hospital Encounter [facility] - Other [address] [place] [address] Nhung Warner NP Discharge Disposition: Home or [...] Sig Dispensed Refills Start Date End Date amphetamine-dextroamphetami ne (ADDERALL XR) 10 mg XR capsule Take 20 mg by mouth 2 times daily. Takes one tab(am) and 2 tabs(pm). 09/10/2010 10/26/2012 amphetamine-dextroamphetami ne (ADDERALL) 10 mg tablet Take 10 mg by mouth daily. 09/10/2010 aripiprazole (ABILIFY) 10 mg tablet Take 10 mg by mouth daily. 08/30/2017 clonazepam (KLONOPIN WAFERS) 0.25 mg disintegrating tablet Take 1 Tab by mouth at bedtime. 30 Tab 2 06/19/2010 08/27/2010 duloxetine (CYMBALTA) 30 mg capsule Take 60 mg by mouth daily. 06/19/2010 09/16/2017 lorazepam (ATIVAN) 0.5 mg Tab Take 1 mg by mouth daily. 06/19/2010 09/10/2010 topiramate (TOPAMAX) 25 mg tablet Take 50 mg by mouth daily. 06/19/2010 09/10/2010 documented as of this encounter Discharge Disposition Disposition Code Departure Means Destination Home or Self Care documented in this encounter Plan of Treatment Upcoming Encounters Date Type Department Care Team (Late st Contact Info) Description 06/08/2024 13:30 EDT Office Visit [facility] 550 [facility] [address] [place] [address] Michelle Shannon MD [address] [place] [phone] documented as of this encounter Visit Diagnoses Not on filedocumented in this encounter Care Teams Functional Consultant Relationship Specialty Start Date End Date Apolinar Lee MD [address] [place] [phone] PCP - General 01/16/09 09/07/11 documented as of this encounter
--- OUTSIDE RECORDS SUMMARY | 2024-04-28 16:00 | XMS_ITS | Encounter Summary ---
Author Organization [facility] Address [address] [place] [address] Care Team Providers Care Marketing Automation Specialist Name Role Phone Apolinar Lee MD Primary Care Provider [phone] [phone] Reason for Visit * Reason Onset Date Comments Medications Refill 03/04/2011 Encounter Details Date Type Department Care Team (Late st Contact Info) Description 03/04/2011 Refill [facility] Neurology - [address] [place] [address] [place], [place] [address] Chela Hernadez RN Medications Refill Social History Tobacco Use [...] daily. 60 Tab 5 03/04/2011 11/23/2011 documented in this encounter Miscellaneous Notes * Telephone Encounter - Chela Hernadez RN - 03/04/2011 1107 EDT done documented in this encounter Plan of Treatment Upcoming Encounters Date Type Department Care Team (Late Contact Info) Description 06/08/2024 13:30 EDT Office Visit [facility] [address] [place], [place] [phone] Michelle Shannon MD [address] [place] [phone] documented as of this encounter Visit Diagnoses Not on filedocumented in this encounter Discontinued Medications Medication Sig Discontinue Reason Start Date End Da te topiramate (TOPAMAX) 50 mg tablet Take 1 Tab by mouth 2 times daily. Reorder 09/10/2010 03/04/2011 documented as of this encounter Care Teams Marketing Automation Specialist Relationship Specialty Start Date End Date Apolinar Lee MD [address] [place] [phone] PCP - General 01/16/09 09/07/11 documented as of this encounter
--- OUTSIDE RECORDS SUMMARY | 2024-04-28 16:00 | XMS_ITS | Encounter Summary ---
Author Organization [facility] Address [address] [place] [address] Care Team Providers Care Poultry Vaccinator Name Role Phone Michelle Shannon MD Primary Care Provider + Encounter Details Date Type Department Care Team (Late st Contact Info) Description 10/08/[address] [facility] Sports Medicine Program - [address] [place] [address] Ruslan García MD [address] [place] [phone] Social History Tobacco Use Types Packs/Day [...] Info) Description 06/08/2024 13:30 EDT Office Visit [facility] [address] [place] [address] Michelle Shannon MD [address] [place] [phone] documented as of this encounter Visit Diagnoses Not on filedocumented in this encounter Care Teams Poultry Vaccinator Relationship Specialty Start Date End Date Michelle Shannon MD [address] [place] [phone] PCP - General 09/08/11 documented as of this encounter
--- OUTSIDE RECORDS SUMMARY | 2024-04-28 16:00 | XMS_ITS | Encounter Summary ---
Author Organization [facility] Address [address] [place] [address] Care Team Providers Care Director Cost Name Role Phone Apolinar Lee MD Primary Care Provider [phone] [phone] Encounter Details Date Type Department Care Team (Late st Contact Info) Description 09/07/2011 Results Only Imaging [facility] Family Medicine [address] [phone] Ruslan García MD [address] [place] [phone] Social History Tobacco Use Types Packs/Day [...] Office Visit [facility] 550 [facility] [address] [place] [address] Michelle Shannon MD [address] [place] [phone] documented as of this encounter Procedures Procedure Name Priority Date/Time Associated Diagnosis Comments KNEE 4 OR MORE VIEWS 09/09/2011 9:49 EST documented in this encounter Results * KNEE 4 OR MORE VIEWS (09/09/2011 9:49 EST) Anatomical Region Laterality Modality Other 09/09/2011 9:49 EST 09/09/2011 13:53 EST Narrative 09/09/2011 13:53 EST KNEE 4 OR MORE VIEWS ??Sep 09, 2011 09:49:00 AM Clinical History/Comments: 719.46-PAIN IN JOINT, LOWER [id number]-CM Left Knee pain Comparison: Left knee radiographs [...] AM Clinical History/Comments: 719.46-PAIN IN JOINT, LOWER [id number]-[id number]-CM Left Knee pain Comparison: Left knee radiographs [...] compartment and patellofemoral compartment. Ruslan García MD [facility]ERIO GING ORDERABLES documented in this encounter Visit Diagnoses Not on filedocumented in this encounter Care Teams Director Cost Relationship Specialty Start Date End Date Apolinar Lee MD [address] [place] [phone] PCP - General 01/16/09 09/07/11 documented as of this encounter
--- OUTSIDE RECORDS SUMMARY | 2024-04-28 16:00 | XMS_ITS | Encounter Summary ---
Author Organization [facility] Address [address] [place] [address] Care Team Providers Care Nutrition Partner Name Role Phone Michelle Shannon MD Primary Care Provider + Reason for Visit * Reason Comments Other Encounter Details Date Type Department Care Team (Late st Contact Info) Description 05/26/2012 Refill [facility] Sleep Program - [address] [place] [address] [place] [address] [place] [address] Other Social History Tobacco Use Types Packs/Day [...] AT BEDTIME 30 Tab 6 05/26/2012 06/17/2017 documented in this encounter Plan of Treatment Upcoming Encounters Date Type Department Care Team (Late st Contact Info) Description 06/08/2024 13:30 EDT Office Visit [facility] [address] [place] [address] Michelle Shannon MD [address] [place] [phone] documented as of this encounter Visit Diagnoses Not on filedocumented in this encounter Discontinued Medications Medication Sig Discontinue Reason Start Date End Da te Melatonin 3 mg Tab Take by mouth at bedtime. Reorder 09/10/2010 05/26/2012 documented as of this encounter Care Teams Nutrition Partner Relationship Specialty Start Date End Date Michelle Shannon MD [address] [place] [phone] PCP - General 09/08/11 documented as of this encounter
--- OUTSIDE RECORDS SUMMARY | 2024-04-28 16:00 | XMS_ITS | Encounter Summary ---
Author Organization [facility] Address [address] [place] [address] Care Team Providers Care Design Engineer Products Name Role Phone Apolinar Lee MD Primary Care Provider [phone] [phone] Reason for Visit * Reason Comments Sleep Disorder Encounter Details Date Type Department Care Team (Late st Contact Info) Description 08/27/2010 10:20 EST Office Visit [facility] Sleep Program - [address] [address] [place] [address] REM sleep behavior disorder (Primary Dx) Social [...] Tab by mouth at bedtime. 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 The patient had initiated clonazepam 0.25 mg and melatonin 3 mg at bedtime after ourlast visit. She reports that her number of notable dream enacting events has decreased significantly after initiating this combination therapy, but has had a few instances of apparent behaviors, onceknocking over a stool next to the bed, and once waking up with a phone in her hand. She has noted no morning grogginess after reinitiating clonazepam at the current dosing. The patient reports that her living situation has much improved. She continues to follow with Dr Aguero for management of her anxiety and narcolepsy symptoms. OBJECTIVE: Physical exam unchanged. 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 After reinitiating clonazepam therapy in conjunction with melatonin, the patient has seen a decrease in her dream- enacting behaviors, but is still having some events. PLAN: 1. REM sleep behavior disorder: We will increase her clonazepam dosing to 0.5 mg at bedtime. The patient is going to monitor morning grogginess and contact me if this becomes a problem for her. We will sit down in six months or sooner if the dream-enacting behaviors are not fully treated with the current regimen. 2. Narcolepsy: The patient's symptoms are stable and we will continue to follow along with Dr Aguero regarding her narcolepsy management. Electronically Signed by Dean Turner MD 09/07/2010 21:35 Dean Turner MD [facility] Sleep Diplomate - Dean Turner MD - Job ID: SM Doc ID: [id number] Ext Doc ID: [id number] cc: Jarocho Lee MD * Dean Turner MD - 08/27/2010 1050 EST This office note has been dictated. documented in this encounter Plan of Treatment Upcoming Encounters Date Type Department Care Team (Late st Contact Info) Description 06/08/2024 13:30 EDT Office Visit [facility] [address] [place] [address] Michelle Shannon MD [address] [place] [phone] documented as of this encounter Visit Diagnoses Diagnosis REM sleep behavior disorder- Primary documented in this encounter Discontinued Medications Medication Sig Discontinue Reason Start Date End Da te clonazepam (KLONOPIN WAFERS) 0.25 mg disintegrating tablet Take 1 Tab by mouth at bedtime. 06/19/2010 08/27/2010 documented as of this encounter Care Teams Design Engineer Products Relationship Specialty Start Date End Date Apolinar Lee MD [address] [place] [phone] PCP - General 01/16/09 09/07/11 documented as of this encounter
--- OUTSIDE RECORDS SUMMARY | 2024-04-28 16:00 | XMS_ITS | Encounter Summary ---
Author Organization [facility] Address [address] [place] [address] Care Team Providers Care Software Applications Developer Name Role Phone Apolinar Lee MD Primary Care Provider [phone] [phone] Reason for Visit * Reason Onset Date Comments Medications Refill 09/15/2010 Encounter Details Date Type Department Care Team (Late st Contact Info) Description 09/15/2010 Refill [facility] Sleep Program - [address] [phone] Juliana Díaz RN [address] [place] [address] Medications Refill Social History Tobacco Use Types [...] by mouth at bedtime. 30 Tab 2 09/15/2010 02/24/2011 documented in this encounter Miscellaneous Notes * Telephone Encounter - Juliana Díaz RN - 09/15/2010 09 EST Faxed prescription refill for Melatonin to [facility] via [facility]. documented in this encounter Plan of Treatment Upcoming Encounters Date Type Department Care Team (Late st Contact Info) Description 06/08/2024 13:30 EDT Office Visit [facility] [address] [place] [address] Michelle Shannon MD [address] [place] [phone] documented as of this encounter Visit Diagnoses Not on filedocumented in this encounter Care Teams Software Applications Developer Relationship Specialty Start Date End Date Apolinar Lee MD [address] [place] [phone] PCP - General 01/16/09 09/07/11 documented as of this encounter
--- OUTSIDE RECORDS SUMMARY | 2024-04-28 16:00 | XMS_ITS | Encounter Summary ---
Author Organization [facility] Address [address] [place] [address] Care Team Providers Care Religious Education Teacher Name Role Phone Michelle Shannon MD Primary Care Provider + Encounter Details Date Type Department Care Team (Late st Contact Info) Description 06/22/2013 8:41 EDT - 06/22/2013 23:59 EDT Hospital Encounter [address] [address] Rosemary Hussein MD [address] [place] [address], [facility] [address] [place] [phone] Discharge Disposition: Home or Self Care Social [...] Sig Dispensed Refills Start Date End Date msdhmdj-gmohwsefrdpmk-nv ffeine (EXCEDRIN MIGRAINE) 250-250-65 mg per tabletIndications:migrai [...] Code Departure Means Destination Home or Self Correction documented in this encounter Plan of Treatment Upcoming Encounters Date Type Department Care Team (Late st Contact Info) Description 06/08/2024 13:30 EDT Office Visit [facility] [address] [place] [address] Michelle Shannon MD [address] [place] [phone] documented as of this encounter Visit Diagnoses Not on filedocumented in this encounter Care Teams Religious Education Teacher Relationship Specialty Start Date End Date Michelle Shannon MD [address] [place] [phone] PCP - General 09/08/11 documented as of this encounter
--- OUTSIDE RECORDS SUMMARY | 2024-04-28 16:00 | XMS_ITS | Encounter Summary ---
Author Organization [facility] Address [address] [place] [address] Care Team Providers Care Electronics Technology Instructor Name Role Phone Michelle Shannon MD Primary Care Provider + Encounter Details Date Type Department Care Team (Late st Contact Info) Description 06/22/2013 Phlebotomy Only [facility] [address] [place], [place] [address] Energy Audit Advisor, Outpatient Bipolar disorder, unspecified ([facility]) Social History Tobacco Use Types Packs/Day Years [...] Info) Description 06/08/2024 13:30 EDT Office Visit [facility] [address] [place] [address] Michelle Shannon MD [address] [place] [address] documented as of this encounter Procedures Procedure Name Priority Date/Time Associated Diagnosis Comments THYROID CASCADE Routine 06/22/2013 8:45 EDT Bipolar disorder, unspecified ([facility]) VITAMIN D (25,[place]) Routine 06/22/2013 8:4 5 EDT Bipolar disorder, unspecified ([facility]) DIFFERENTIAL Routine 06/22/2013 8:45 EDT COMPLETE BLOOD COUNT Routine 06/22/2013 8:45 EDT COMPLETE BLOOD COUNT AND DIFFERENTIAL Routine 06/22/2013 8:45 EDT Bipolar disorder, unspecified ([facility]) FOLATE Routine 06/22/2013 8:45 EDT Bipolar disorder, unspecified ([facility]) VITAMIN B12 Routine 06/22/2013 8:45 EDT Bipolar disorder, unspecified ([facility]) LIPID PROFILE (INCLUDES CHOLESTEROL, TRIGLYCERIDES, HDL, LDL) Routine 06/22/2013 8:45 EDT Bipolar disorder, unspecified ([facility]) COMPREHENSIVE METABOLIC PANEL (CMP) Routine 06/22/2013 8:45 EDT Bipolar disorder, unspecified ([facility]) documented in this encounter Results * DIFFERENTIAL (06/22/2013 8:45 EDT) % Neutrophils 63.4 45.5 - 79.7 % [facility] % Lymphocytes 27.5 15.0 - 46.8 % [facility] % Monocytes 7.5 1.8 - 12.0 % [facility] % Eosinophils 1.0 0.6 - 6.9 % [facility] % Basophils 0.6 0.2 - 1.4 % [facility] ABS Neutrophils 5.00 2.20 - 8.85 K/cmm [facility] ABS Lymphs 2.17 1.09 - 3.30 K/cmm [facility] ABS Monocytes 0.59 0.1 - 0.8 K/cmm [facility] ABS Eosinophils 0.08 0.03 - 0.61 K/cmm [facility] ABS Basophils 0.05 0.01 - 0.11 K/cmm [facility] Type of Diff: Automated [facility] 06/22/2013 8:45 EDT 06/22/2013 10:50 EDT Rosemary Hussein MD HEMATOLO GY & PF4 ORDERABLES Performing Organization Address [facility] de Phone Number [facility] [address] [place] [address] * (ABNORMAL) HEMAGRAM (06/22/2013 8:45 EDT) WBC 7.89 4.0 - 12.4 K/cmm [facility] RBC 4.07 3.86 - 5.04 M/cmm [facility] Hemoglobin 13.9 11.6 - 15.2 gm/dl [facility] HCT 41.3 34.9 - 44.4 % [facility] MCV 102(H) 81 - 98 fl [facility] MCH 34.2(H) 26.7 - 33.3 pg [facility] MCHC 33.7 32.1 - 35.9 gm/dl [facility] PLT 412(H) 141 - 320 K/cmm [facility] RDW-CV 12.6 11.7 - 14.6 % [facility] 06/22/2013 8:45 EDT 06/22/2013 10:50 EDT Rosemary Hussein MD HEMATOLO GY & PF4 ORDERABLES Performing Organization Address [facility] de Phone Number [facility] [address] [place] [address] * VITAMIN B12 (06/22/2013 8:45 EDT) Vitamin B-12 448 211 - 911 pg/ml [facility] Blood specimen (specimen) 06/22/2013 8:45 EDT 06/22/2013 10:50 EDT Rosemary Hussein MD CHEMISTR Y & BLOOD GAS ORDERABLES [facility] [address] [place] [address] * (ABNORMAL) COMPREHENSIVE METABOLIC PANEL (CMP) (06/22/2013 8:45 EDT) Potassium 4.4 3.5 - 5.0 mEq/L [facility] Sodium 141 136 - 145 mEq/L [facility] Chloride 107 96 - 110 mEq/L [facility] CO2 18(L) 24 - 32 mEq/L [facility] Total Alkaline Phosphatase 87 38 - 126 U/L [facility] Bilirubin, Total 0.9 0.2 - 1.3 mg/dl [facility] AST 17 15 - 46 U/L [facility] ALT 23 9 - 52 U/L [facility] Albumin 4.3 3.4 - 4.9 g/dl [facility] Total Protein 7.3 6.5 - 8.3 g/dl [facility] Creatinine 1.08(H) 0.52 - 1.04 mg/dl [facility] GFR, Calculated 56(L) >60 ml/min/1.7 3m2 [facility] BUN 16 10 - 26 mg/dl [facility] Calcium 9.7 8.5 - 10.5 mg/dl [facility] Calculated Calcium 9.8 8.5 - 10.5 mg/dl [facility] Glucose, Serum 84 70 - 100 mg/dl [facility] Fasting? YES [facility] Blood specimen (specimen) 06/22/2013 8:45 EDT 06/22/2013 10:50 EDT Rosemary Hussein MD CHEMISTR Y & BLOOD GAS ORDERABLES [facility] [address] [place] [address] * THYROID CASCADE (06/22/2013 8:45 EDT) TSH 2.45 0.35 - 5.00 uIU/ml [facility] Comment: TSH cascade is not recommended for patients in which pituitary or hypothalamic disorders are suspected. Blood specimen (specimen) 06/22/2013 8:45 EDT 06/22/2013 10:50 EDT Rosemary Hussein MD CHEMISTR Y & BLOOD GAS ORDERABLES Performing Organization Address [facility] de Phone Number [facility] [address] [place] [address] * LIPID PROFILE (INCLUDES CHOLESTEROL, TRIGLYCERIDES, HDL, LDL) (06/22/2013 8:45 EDT) Pathologist [facility] Cholesterol 187 mg/dl [facility] Comment: Desirable:<200 Borderline High:200-239 High:>oj=460 Triglycerides 174 mg/dl [facility] Comment: Normal:<150 Borderline High:150-199 High:200-499 Very High:>kq=681 HDL 38 mg/dl [facility] Comment: Low:<40 Normal:40-60 Desirable: >60 LDL, Calculated 114 mg/dl [facility] Comment: Optimal:<100 Near Optimal:100-129 Borderline High:130-159 High:160-189 Very High:>pn=869 Chol/HDL Ratio 4.9 [facility] Fasting? YES [facility] Non HDL Cholesterol 149 mg/dl [facility] Comment: Desirable:<130 Borderline:130-159 High: 160-189 Very High: >og=922 Blood specimen (specimen) 06/22/2013 8:45 EDT 06/22/2013 10:50 EDT Rosemary Hussein MD CHEMISTR Y & BLOOD GAS ORDERABLES Performing Organization Address [facility] de Phone Number [facility] [address] [place] [address] * VITAMIN D (25,OH) (06/22/2013 8:45 EDT) Pathologist [facility] 25OH Vitamin D Tot 30.8 ng/ml [facility] Comment: Reference Range: Deficient = <10 ng/ml Insufficient = 10-30 ng/ml Sufficient = 30-100 ng/ml Toxic = >100 ng/ml Blood specimen (specimen) 06/22/2013 8:45 EDT 06/22/2013 10:50 EDT Rosemary Hussein MD CHEMISTR Y & BLOOD GAS ORDERABLES Performing Organization Address [facility] Co de Phone Number [facility] [address] [address] * FOLATE (06/22/2013 8:45 EDT) Folate 20.3 ng/mL [facility] Comment: Deficient: ??Less than 3.4 ng/mL Indeterminate: ??3.4-5.4 ng/mL Normal: ??Greater than 5.4 ng/mL Blood specimen (specimen) 06/22/2013 8:45 EDT 06/22/2013 10:50 EDT Rosemary Hussein MD CHEMISTR Y & BLOOD GAS ORDERABLES Performing Organization Address [facility] de Phone Number [facility] [address] [address] documented in this encounter Visit Diagnoses Diagnosis Bipolar disorder, unspecified ([facility]) Bipolar disorder, unspecified documented in this encounter Care Teams Electronics Technology Instructor Relationship Specialty Start Date End Date Michelle Shannon MD [address] [place] [phone] PCP - General 09/08/11 documented as of this encounter
--- OUTSIDE RECORDS SUMMARY | 2024-04-28 16:00 | XMS_ITS | Encounter Summary ---
Author Organization [facility] Address [address] [place] [address] Care Team Providers Care Commercial Loan Assistant Name Role Phone Michelle Shannon MD Primary Care Provider + Encounter Details Date Type Department Care Team (Latest Contact Info) Description 10/03/2012 12:48 EST - 10/03/2012 23:59 EST Hospital Encounter [facility] [id number] [place] [address] Michelle Shannon MD [address] [place] [phone] Discharge Disposition: Auto Discharge Social History Tobacco Use Types Packs/Day Years Used Date Smoking Tobacco: Never Assessed Sex and Gender Information Value Date Recorded Sex Assigned at Not on file Gender Identity Female 11/10/2020 8:41 EST Sexual Orientation Straight 12/07/2023 23 :06 EDT documented as of this encounter Medications at Time of Discharge Medication Sig Dispensed Refills Start Date End Date amphetamine-dextroamphet amine (ADDERALL XR) 10 mg XR capsule Take 20 mg by mouth 2 times daily. Takes one tab(am) and 2 tabs(pm). 09/10/2010 10/26/2012 aripiprazole (ABILIFY) 10 mg tablet Take 10 mg by mouth daily. 08/30/2017 clonAZEPAM (KLONOPIN) 0.5 mg tablet take 1 tablet by mouth at bedtime 30 Tab 5 12/06/2011 01/17/2013 clonAZEPAM (KLONOPIN) 0.5 mg tablet take 1 tablet by mouth at bedtime 30 Tab 1 01/20/2011 10/11/2012 duloxetine (CYMBALTA) 30 mg capsule Take 60 mg by mouth daily. 06/19/2010 09/16/2017 LEVONORGESTREL-ETH ESTRA (KATHY ORAL) Take by mouth daily. 09/10/20102016 lorazepam (ATIVAN) 0.5 mg Tab Take 0.5 mg by mouth as needed. 02/24/2011 06/20/2013 Melatonin 3 mg Tab TAKE 1 TABLET [...] Info) Description 06/08/2024 13:30 EDT Office Visit [facility] [address] [facility] [address] [place] [address] Michelle Shannon MD [address] [place] [address] documented as of this encounter Procedures Procedure Name Priority Date/Time Associated Diagnosis Comments SACRUM COCCYX 2 OR MORE VIEWS 10/03/2012 13:23 EST documented in this encounter Results * SACRUM COCCYX 2 OR MORE VIEWS (10/03/2012 13:23 EST) Anatomical Region Laterality Modality Other 10/03/2012 13:2 3 EST 10/03/2012 13:32 EST Narrative 10/03/2012 13:32 EST SACRUM COCCYX 2 OR MORE VIEWS ??Oct 03, 2012 01:23:00 PM Clinical History/Comments: Coccyx pain.. . There is incomplete development of a lower left sacral foramina, this most like represents an anatomical variant. No fracture or dislocation is seen. Procedure Note 10/03/2012 SACRUM COCCYX 2 OR MORE VIEWS Oct 03, 2012 01:23:00 PM Clinical History/Comments: Coccyx pain.. . There is incomplete development of a lower left sacral foramina, this most like represents an anatomical variant. No fracture or dislocation is seen. Michelle Shannon MD IMG DIAGNOSTIC I MAGING ORDERABLES documented in this encounter Visit Diagnoses Not on filedocumented in this encounter Care Teams Commercial Loan Assistant Relationship Specialty Start Date End Date Michelle Shannon MD [address] [place] [phone] PCP - General 09/08/11 documented as of this encounter
--- OUTSIDE RECORDS SUMMARY | 2024-04-28 16:01 | XMS_ITS | Encounter Summary ---
Author Organization [facility] Address [address] [place] [address] Care Team Providers Care Developer Trading Systems Name Role Phone Unavailable Primary Care Provider Unavailabl e Encounter Details Date Type Department Care Team (Latest Contact Info) Description 01/16/2003 21:51 EDT Hospital Encounter [facility] - Other [address] [place] [address] Nhung Warner NP Discharge Disposition: Auto Discharge Social History Tobacco Use Types Packs/Day Years Used Date Smoking Tobacco: Never Assessed Sex and Gender Information Value Date Recorded Sex Assigned at Not on file Gender Identity Female 11/10/2020 8:41 EST Sexual Orientation Straight 12/07/2023 23 :06 EDT documented as of this encounter Discharge Disposition Disposition Code Departure Means Destination Auto Discharge documented in this encounter Plan of Treatment Upcoming Encounters Date Type Department Care Team (Late st Contact Info) Description 06/08/2024 13:30 EDT Office Visit [facility] [address] [place] [address] Michelle Shannon MD [address] [place] [phone] documented as of this encounter Visit Diagnoses Not on filedocumented in this encounter
--- OUTSIDE RECORDS SUMMARY | 2024-04-28 16:01 | XMS_ITS | Encounter Summary ---
Author Organization [facility] Address [address] [place] [address] Care Team Providers Care Commercial Credit Reviewer Name Role Phone Unavailable Primary Care Provider Unavailabl e Encounter Details Date Type Department Care Team (Latest Contact Info) Description 03/03/2007 21:32 EDT Hospital Encounter [facility] Emergency Department - [facility] [address] [place], [place] [id number] Emergency, [place], Discharge Disposition: Home or Self Care Social [...] Office Visit [facility] [address] [place] [address] Michelle Shannon MD [address] [place] [address] documented as of this encounter Procedures Procedure Name Priority Date/Time Associated Diagnosis Comments MR HEAD W/WO CONTRAST 04/07/2007 20:33 EDT documented in this encounter Results * MR HEAD W/WO CONTRAST (04/07/2007 20:33 EDT) Anatomical Region Laterality Modality Other 04/07/2007 20:3 3 EDT Narrative 03/26/2009 12:45 EDT recurrent vertigo, right sided rebound, lower extremity hyperreflexio, left sided colonus, babinski sign Brain MRI on 04/07/2007 at 7:54 p.m. History: Vertigo. Right-sided rebound. Lower extremity hyperflexion. Left-sided clonus. Babinski sign. Relative mild main disease. Technique: Comparisons: None available. Findings: To the ventricles and sulci are age-appropriate. There is no midline shift. The basilar cisterns are widely patent. They are 2 punctate foci of high signal on the FLAIR sequence within the subcortical white matter of the frontal lobes. These are nonspecific. The number is within normal limits for age. There is tissue loss within the posterior aspect of the putamen on the right with a sharp demarcation, perhaps due to prior ischemic injury. There is no acute infarct identified. No abnormal enhancement is demonstrated. Flow-voids are present in the major intracranial arteries and dural venous sinuses. They are no paranasal sinus air-fluid levels. There is fluid within the mastoid air cells on the right. No orbital abnormalities demonstrated. Impression: 1. 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 2. Right mastoid effusion. Addendum Begins This report has been addended to add an attending radiologist. ??The text has not been altered. Addendum Ends Procedure Note Sydni Anguiano MD / Sofie, Wally Merida MD - 03/26/2009 recurrent vertigo, right sided rebound, lower extremity hyperreflexio, left sided colonus, babinski sign Brain MRI on 04/07/2007 at 7:54 p.m. History: Vertigo. Right-sided rebound. Lower extremity hyperflexion. Left-sided clonus. Babinski sign. Relative mild main disease. Technique: Comparisons: None available. Findings: To the ventricles and sulci are age-appropriate. There is no midline shift. The basilar cisterns are widely patent. They are 2 punctate foci of high signal on the FLAIR sequence within the subcortical white matter of the frontal lobes. These are nonspecific. The number is within normal limits for age. There is tissue loss within the posterior aspect of the putamen on the right with a sharp demarcation, perhaps due to prior ischemic injury. There is no acute infarct identified. No abnormal enhancement is demonstrated. Flow-voids are present in the major intracranial arteries and dural venous sinuses. They are no paranasal sinus air-fluid levels. There is fluid within the mastoid air cells on the right. No orbital abnormalities demonstrated. Impression: 1. 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 2. Right mastoid effusion. Addendum Begins This report has been addended to add an attending radiologist. The text has not been altered. Addendum Ends Bryce Jimenez MD IMG MRI ORDERABLES documented in this encounter Visit Diagnoses Not on filedocumented in this encounter
--- OUTSIDE RECORDS SUMMARY | 2024-04-28 16:01 | XMS_ITS | Encounter Summary ---
Author Organization [facility] Address [address] [place] [address] Care Team Providers Care Director Of Partnerships Name Role Phone Unavailable Primary Care Provider Unavailabl e Encounter Details Date Type Department Care Team (Latest Contact Info) Description 04/02/2006 16:57 EDT Hospital Encounter [facility] Emergency Department - [facility] [address] [place], [place] [phone] Emergency, [place], Discharge Disposition: Home or Self [...] Office Visit [facility] [address] [place] [address] Michelle Shannon MD [address] [place] [phone] documented as of this encounter Procedures Procedure Name Priority Date/Time Associated Diagnosis Comments WRIST 3 OR MORE VIEWS 04/02/2006 17:43 EDT CHEST PA AND LATERAL 04/02/2006 17:42 EDT documented in this encounter Results * WRIST 3 OR MORE VIEWS (04/02/2006 17:43 EDT) Anatomical Region Laterality Modality Other 04/02/2006 17:4 3 EDT Narrative 04/12/2009 11:17 EDT H/O FALL R/O FX 4 VIEWS OF THE LEFT WRIST CLINICAL HISTORY: ?? Fall. ??Rule out fracture. COMPARISON: ?? None available. FINDINGS: Four views of the left wrist show an intra-articular fracture of the distal radius. ??The remainder of the bones and soft tissues appear normal. D: ??04/02/06 T: ??04/06/06 / I have personally reviewed the images and the above interpretation and agree with the findings. Procedure Note Rangel Jean Baptiste DDS / Anneliese Da Silva MD - 04/12/2009 H/O FALL R/O FX 4 VIEWS OF THE LEFT WRIST CLINICAL HISTORY: Fall. Rule out fracture. COMPARISON: None available. FINDINGS: Four views of the left wrist show an intra-articular fracture of the distal radius. The remainder of the bones and soft tissues appear normal. I have personally reviewed the images and the above interpretation and agree with the findings. Vu Kay MD IMG DIAGNOSTIC IM AGING ORDERABLES * CHEST PA AND LATERAL (04/02/2006 17:42 EDT) Anatomical Region Laterality Modality Other 04/02/2006 17:4 2 EDT Narrative 04/12/2009 11:17 EDT H/O FALL R/O FX PA AND LATERAL CHEST 04/02/2006 CLINICAL HISTORY: Fell down. ??Rule of fracture. COMPARISON: ??None. FINDINGS: ??Pa and lateral views of the chest show normal cardiomediastinal silhouette and pulmonary markings. ??The bones and soft tissues appears normal. T: ??04/06/2006 /hugo I have personally reviewed the images and the above interpretation and agree with the findings. Procedure Note Rangel Jean Baptiste DDS / Anneliese Da Silva MD - 04/12/2009 H/O FALL R/O FX PA AND LATERAL CHEST 04/02/2006 CLINICAL HISTORY: Fell down. Rule of fracture. COMPARISON: None. FINDINGS: Pa and lateral views of the chest show normal cardiomediastinal silhouette and pulmonary markings. The bones and soft tissues appears normal. /hugo I have personally reviewed the images and the above interpretation and agree with the findings. Vu Kay MD IMG DIAGNOSTIC IM AGING ORDERABLES documented in this encounter Visit Diagnoses Not on filedocumented in this encounter
--- OUTSIDE RECORDS SUMMARY | 2024-04-28 16:01 | XMS_ITS | Encounter Summary ---
Author Organization [facility] Address [address] [place] [address] Care Team Providers Care Technical Buyer Name Role Phone Apolinar Lee MD Primary Care Provider [phone] Encounter Details Date Type Department Care Team (Late st Contact Info) Description 04/03/2007 Results Only [facility] [address] [place] [address] Fatoumata Warner NP Social History Tobacco Use Types [...] Info) Description 06/08/2024 13:30 EDT Office Visit [facility] [address] [facility] [address] [place] [address] Michelle Shannon MD [address] [place] [phone] documented as of this encounter Procedures Procedure Name Priority Date/Time Associated Diagnosis Comments CYTOPATHOLOGY Routine 04/03/2007 0:00 EDT documented in this encounter Results * CYTOPATHOLOGY (04/03/2007 0:00 EDT) Pathology Report: CYTOPATHOLOGY REPORT Reports generated via electronic interface contain original data; however they are lacking the format of the original report. Caution should be taken when reading/interpreti ng unformatted reports. Name: ? EMANUEL TRONCOSO ? Accession #: ? [id number] : ? 1975 (Age: 31) ??F ?Collect Date: ? 04/03/2007 Location: ? [facility] ? Receive Date: ? 04/04/2007 Provider: ?FATOUMATA WARNER NP Copy to: ?ELEAZAR LEE MD ? Specimen/Source: ?ThinPrep Pap Test, Cervix/Endocervix, processed on [employer] ThinPrep Imaging System, with manual evaluation Last Menstrual Period: ? 03/23/07 Previous Gynecologic Pathology: ? HSIL: 1996 Treatment History: ? Colposcopy: 1996 Colposcopy: 1996 Other: ? HPVA - HPV testing requested if ASC-US on the current ThinPrep Pap test. ? SPECIMEN ADEQUACY ? Satisfactory for Evaluation - transformation zone component absent GENERAL CATEGORIZATION ? Negative for Intraepithelial Lesion or Malignancy ? Document reviewed and electronically signed by: ? ИВАН Nunes(ASCP) ? Report Date: ??04/11/2007 10:40 End of Report [facility] 04/03/2007 04/04/2007 Fatoumata Warner NP PATHOLOGY ORDERABLES [facility] [address] [place] [address] documented in this encounter Visit Diagnoses Not on filedocumented in this encounter Care Teams Technical Buyer Relationship Specialty Start Date End Date Apolinar Lee MD [address] [place] [phone] PCP - General 01/16/09 09/07/11 documented as of this encounter
--- OUTSIDE RECORDS SUMMARY | 2024-04-28 16:01 | XMS_ITS | Encounter Summary ---
Author Organization [facility] Address [address] [place] [address] Care Team Providers Care Speed Winder Name Role Phone Apolinar Lee MD Primary Care Provider [phone] Encounter Details Date Type Department Care Team (Late st Contact Info) Description 02/01/2005 Results Only [facility] [address] [place], [place] [phone] Fatoumata Warner NP Social History Tobacco Use [...] Info) Description 06/08/2024 13:30 EDT Office Visit [facility] [address] [facility] [address] [place] [address] Michelle Shannon MD [address] [place] [phone] documented as of this encounter Procedures Procedure Name Priority Date/Time Associated Diagnosis Comments CYTOPATHOLOGY Routine 02/01/2005 0:00 EDT documented in this encounter Results * CYTOPATHOLOGY (02/01/2005 0:00 EDT) Pathology Report: CYTOPATHOLOGY REPORT Reports generated via electronic interface contain original data; however they are lacking the format of the original report. Caution should be taken when reading/interpreti ng unformatted reports. Name: ? EMANUEL TRONCOSO ? Accession #: ? [id number] : ? 1975 (Age: 29) ??F ?Collect Date: ? 02/01/2005 Location: ? [facility] ? Receive Date: ? 02/03/2005 Provider: ?FATOUMATA WARNER NP Copy to: ?ELEAZAR LEE MD ? Specimen/Source: ?ThinPrep Pap Test, Cervix/Endocervix Last Menstrual Period: ? 01/21/05 Hormonal/Contracep tive Status: ? Yes: Koffi Novak Previous Gynecologic Pathology: ? HSIL: 1995 Treatment History: ? Cryotherapy ? SPECIMEN ADEQUACY ? Satisfactory for Evaluation - transformation zone component present GENERAL CATEGORIZATION ? Negative for Intraepithelial Lesion or Malignancy ? Document reviewed and electronically signed by: ? YUE Mir(ASCP) ? Report Date: ??02/09/2005 08:03 End of Report [facility] 02/01/2005 02/03/2005 Fatoumata Warner NP PATHOLOGY ORDERABLES [facility] [address] [place] [address] documented in this encounter Visit Diagnoses Not on filedocumented in this encounter Care Teams Speed Winder Relationship Specialty Start Date End Date Apolinar Lee MD [address] [place] [phone] PCP - General 01/16/09 09/07/11 documented as of this encounter
--- OUTSIDE RECORDS SUMMARY | 2024-04-28 16:01 | XMS_ITS | Encounter Summary ---
Author Organization [facility] Address [address] [place] [address] Care Team Providers Care Board Filler Name Role Phone Apolinar Lee MD Primary Care Provider [phone] [phone] Encounter Details Date Type Department Care Team (Late st Contact Info) Description 05/18/2004 Results Only [facility] - Maple conversion [address] [place] [address] Jeniffer Prabhakar, KAMALJIT GIS ANALYST Social History Tobacco Use Types Packs/Day Years [...] 13:30 EDT Office Visit [facility] [address] [facility] [address] [place] [address] Michelle Shannon MD [address] [place] [address] documented as of this encounter Procedures Procedure Name Priority Date/Time Associated Diagnosis Comments MONO-TEST Routine 05/18/2004 16:00 EDT documented in this encounter Results * (ABNORMAL) MONO-TEST (05/18/2004 16:00 EDT) [place]-Test Pos(A) NEG [facility] 05/18/2004 16:0 0 EDT 05/18/2004 18:03 EDT Jeniffer Prabhakar KAMALJIT GIS ANALYST CHEMISTRY & BLOOD GAS ORDERABLES Performing Organization Address City/State/[facility] Co de Phone Number [facility] [address] [place] [address] documented in this encounter Visit Diagnoses Not on filedocumented in this encounter Care Teams Board Filler Relationship Specialty Start Date End Date Apolinar Lee MD [address] [place] [address] PCP - General 01/16/09 09/07/11 documented as of this encounter
--- OUTSIDE RECORDS SUMMARY | 2024-04-28 16:01 | XMS_ITS | Encounter Summary ---
Author Organization [facility] Address [address] [place] [address] Care Team Providers Care Animation Artist Name Role Phone Unavailable Primary Care Provider Unavailabl e Encounter Details Date Type Department Care Team (Latest Contact Info) Description 09/27/2008 8:13 EST - 09/27/2008 11:59 EST Hospital Encounter [facility] [address] [place] [address] Jerome Griggs MD [address] [facility] [address] [place] [address] Discharge Disposition: Auto Discharge Social History Tobacco [...] Info) Description 06/08/2024 13:30 EDT Office Visit [facility] 550 [facility] [address] [place] [address] Michelle Shannon MD [address] [place] [phone] documented as of this encounter Procedures Procedure Name Priority Date/Time Associated Diagnosis Comments COMPLETE BLOOD COUNT Routine 09/27/2008 8:19 EST TSH Routine 09/27/2008 8:19 EST LIPID PROFILE (INCLUDES CHOLESTEROL, TRIGLYCERIDES, HDL, LDL) Routine 09/27/2008 8:19 EST COMPREHENSIVE METABOLIC PANEL (CMP) Routine 09/27/2008 8:19 EST documented in this encounter Results * TSH (09/27/2008 8:19 EST) TSH 1.74 0.35 - 5.00 uIU/ml [facility] 09/27/2008 8:19 EST 09/27/2008 8:20 EST Jerome Griggs MD CHEMISTRY & BL OOD GAS ORDERABLES Performing Organization Address [facility] Co de Phone Number [facility] [address] [place] [address] * (ABNORMAL) HEMAGRAM (09/27/2008 8:19 EST) WBC 5.43 4.0 - 12.4 K/cmm [facility] RBC 3.95 3.86 - 5.04 M/cmm [facility] Hemoglobin 13.9 11.6 - 15.2 gm/dl [facility] HCT 39.8 34.9 - 44.4 % [facility] MCV 101(H) 81 - 98 fl [facility] MCH 35.2(H) 26.7 - 33.3 pg [facility] MCHC 34.9 32.1 - 35.9 gm/dl [facility] PLT 343(H) 141 - 320 K/cmm [facility] RDW-CV 13.0 11.7 - 14.6 % [facility] 09/27/2008 8:19 EST 09/27/2008 8:20 EST Jerome Griggs MD HEMATOLOGY & P F4 ORDERABLES Performing Organization Address City/[facility] Co de Phone Number [facility] [address] [place] [address] * LIPID PROFILE (09/27/2008 8:19 EST) Cholesterol 169 mg/dl [facility] Comment: Desirable:<200 Borderline High:200-239 High:>mx=868 Triglycerides 82 35 - 160 mg/dl [facility] HDL 47 mg/dl [facility] Comment: Low:<40 High(Desirable):>or=60 LDL, Calculated 106 mg/dl [facility] Comment: Optimal:<100 Above optimal:100-129 Borderline High:130-159 High:160-189 Very High:>vy=637 Chol/HDL Ratio 3.6 [facility] Fasting? Yes [facility] 09/27/2008 8:19 EST 09/27/2008 8:20 EST Jerome Griggs MD CHEMISTRY & BL OOD GAS ORDERABLES [facility] [address] [place] [address] * (ABNORMAL) COMPREHENSIVE METABOLIC PANEL (09/27/2008 8:19 EST) Pathologist [facility] Potassium 4.8 3.5 - 5.0 mEq/L [facility] Sodium 144 136 - 145 mEq/L [facility] Chloride 111(H) 96 - 110 mEq/L [facility] CO2 21(L) 24 - 32 mEq/L [facility] Alkaline Phosphatase 75 38 - 126 U/L [facility] Bilirubin, Total 0.7 0.2 - 1.3 mg/dl [facility] AST 21 15 - 46 U/L [facility] ALT 17 9 - 52 U/L [facility] Albumin 4.1 3.4 - 4.9 g/dl [facility] Total Protein 7.3 6.5 - 8.3 g/dl [facility] Creatinine 0.92 0.7 - 1.5 mg/dl [facility] GFR, Calculated >60 ml/min/1.7 3m2 [facility] BUN 16 10 - 26 mg/dl [facility] Calcium 9.9 8.5 - 10.5 mg/dl [facility] Calculated Calcium 10.2 8.5 - 10.5 mg/dl [facility] Glucose, Serum 89 70 - 100 mg/dl [facility] Fasting? Yes [facility] 09/27/2008 8:19 EST 09/27/2008 8:20 EST Jerome Griggs MD CHEMISTRY & BL OOD GAS ORDERABLES [facility] [address] [place] [address] documented in this encounter Visit Diagnoses Not on filedocumented in this encounter
--- OUTSIDE RECORDS SUMMARY | 2024-04-28 16:01 | XMS_ITS | Encounter Summary ---
Author Organization [facility] Address [address] [place] [address] Care Team Providers Care Tile Grinder Name Role Phone Apolinar Lee MD Primary Care Provider [phone] [phone] Encounter Details Date Type Department Care Team (Late st Contact Info) Description 05/07/2004 Results Only [facility] - Maple conversion [address] [place] [address] Jeniffer Prabhakar, KAMALJIT CUSTOMER SERVICE ASSISTANT Social History Tobacco Use Types Packs/Day Years [...] Info) Description 06/08/2024 13:30 EDT Office Visit [facility] [address] [facility] [address] [place] [address] Michelle Shannon MD [address] [place] [address] documented as of this encounter Procedures Procedure Name Priority Date/Time Associated Diagnosis Comments RUBELLA IGG AB Routine 05/07/2004 11:00 EDT MUMPS AB Routine 05/07/2004 11:00 EDT MEASLES IGG AB Routine 05/07/2004 11:00 EDT HEPATITIS B SURFACE ANTIBODY Routine 05/07/2004 11:00 EDT COMPLETE BLOOD COUNT Routine 05/07/2004 11:00 EDT documented in this encounter Results * RUBELLA IGG AB (05/07/2004 11:00 EDT) Rubella IgG Scr Antibody detected [facility] 05/07/2004 11:0 0 EDT 05/07/2004 12:58 EDT Jeniffer Prabhakar KAMALJIT CUSTOMER SERVICE ASSISTANT HISTORICAL LAB FO R SQ LOAD Performing Organization Address [facility] Co de Phone Number [facility] [address] [place] [address] * MUMPS AB (05/07/2004 11:00 EDT) Mumps Ab Antibody detected Assayed by [facility], [place], [place] [facility] 05/07/2004 11:0 0 EDT 05/07/2004 12:58 EDT Jeniffer Prabhakar EDD CUSTOMER SERVICE ASSISTANT HISTORICAL LAB FO R SQ LOAD Performing Organization Address [facility] de Phone Number [facility] [address] [place] [address] * RUBEOLA IGG ANTIBODY (05/07/2004 11:00 EDT) Rubeola IgG Ab Antibody detected [facility] 05/07/2004 11:0 0 EDT 05/07/2004 12:58 EDT Jeniffer Prabhakar EDD CUSTOMER SERVICE ASSISTANT IMMUNOLOGY AND SE ROLOGY ORDERABLES Performing Organization Address [facility] Co de Phone Number [facility] [address] [place] [address] * HEPATITIS B SURFACE ANTIBODY (05/07/2004 11:00 EDT) Hepatitis B Surface Ab Pos [facility] 05/07/2004 11:0 0 EDT 05/07/2004 12:58 EDT Jeniffer Prabhakar KAMALJIT CUSTOMER SERVICE ASSISTANT CHEMISTRY & BLOOD GAS ORDERABLES Performing Organization Address [facility] Co de Phone Number [facility] [address] [place] [address] * (ABNORMAL) HEMAGRAM (05/07/2004 11:00 EDT) WBC 4.48 4.0 - 12.4 K/cmm [facility] RBC 3.77(L) 3.86 - 5.04 M/cmm [facility] Hemoglobin 13.4 11.6 - 15.2 gm/dl [facility] HCT 38.4 34.9 - 44.4 % [facility] MCV 102(H) 81 - 98 fl [facility] MCH 35.6(H) 26.7 - 33.3 pg [facility] MCHC 35.0 32.1 - 35.9 gm/dl [facility] PLT 297 141 - 320 K/cmm [facility] RDW-CV 12.3 11.7 - 14.6 % [facility] 05/07/2004 11:0 0 EDT 05/07/2004 12:58 EDT Jeniffer Prasad Aki KAMALJIT CUSTOMER SERVICE ASSISTANT HEMATOLOGY & PF4 ORDERABLES Performing Organization Address City/[facility] Co de Phone Number [facility] [address] [place] [address] documented in this encounter Visit Diagnoses Not on filedocumented in this encounter Care Teams Tile Grinder Relationship Specialty Start Date End Date Apolinar Lee MD [address] [place] [address] PCP - General 01/16/09 09/07/11 documented as of this encounter
--- OUTSIDE RECORDS SUMMARY | 2024-04-28 16:01 | XMS_ITS | Encounter Summary ---
Author Organization [facility] Address [address] [place] [address] Care Team Providers Care Nail Assembly Machine Operator Name Role Phone Apolinar Lee MD Primary Care Provider [phone] [phone] Encounter Details Date Type Department Care Team (Latest Contact Info) Description 07/14/2009 10:03 EDT - 07/14/2009 10:04 EDT Hospital Encounter [facility] - Other [address] [place] [address] Nhung Warner NP Discharge Disposition: Home-Health Care Svc Social History Tobacco Use Types Packs/Day Years Used Date Smoking Tobacco: Never Assessed Sex and Gender Information Value Date Recorded Sex Assigned at Not on file Gender Identity Female 11/10/2020 8:41 EST Sexual Orientation Straight 12/07/2023 23 :06 EDT documented as of this encounter Discharge Disposition Disposition Code Departure Means Destination Home-Health Care Svc documented in this encounter Plan of Treatment Upcoming Encounters Date Type Department Care Team (Late st Contact Info) Description 06/08/2024 13:30 EDT Office Visit [facility] [address] [facility] [address] [place], [place] [phone] Michelle Shannon MD [address] [place] [address] documented as of this encounter Visit Diagnoses Not on filedocumented in this encounter Care Teams Nail Assembly Machine Operator Relationship Specialty Start Date End Date Apolinar Lee MD [address] [place] [address] PCP - General 01/16/09 09/07/11 documented as of this encounter
--- OUTSIDE RECORDS SUMMARY | 2024-04-28 16:01 | XMS_ITS | Encounter Summary ---
Author Organization [facility] Address [address] [place] [address] Care Team Providers Care Die Mounter Name Role Phone Unavailable Primary Care Provider Unavailabl e Encounter Details Date Type Department Care Team (Late st Contact Info) Description 10/07/2004 22:45 EST Hospital Encounter [facility] - Other [address] [place] [address] Jeniffer Prabhakar, KAMALJIT COPYING MACHINE REPAIRER Social History Tobacco Use Types Packs/Day Years [...] Info) Description 06/08/2024 13:30 EDT Office Visit [facility] 550 [facility] [address] [place], [place] [phone] Michelle Shannon MD [address] [place] [address] documented as of this encounter Visit Diagnoses Not on filedocumented in this encounter
--- OUTSIDE RECORDS SUMMARY | 2024-04-28 16:01 | XMS_ITS | Encounter Summary ---
Author Organization [facility] Address [address] [place] [address] Care Team Providers Care Math Teacher Name Role Phone Unavailable Primary Care Provider Unavailabl e Encounter Details Date Type Department Care Team (Late st Contact Info) Description 05/16/2008 9:29 EDT Hospital Encounter [facility] [address] [place] [address] Abbey Johnson, PAAlonzoC [address] [facility] [address] [place] [phone] Social History Tobacco Use Types Packs/Day Years [...] Sometimes 04/29/2023 How often does anyone, inclalex elisas family, insult, scream, curse or threaten to [...] Visit [facility] [address] [place], [place] [phone] Michelle Shannon MD [address] [place] [address] documented as of this encounter Procedures Procedure Name Priority Date/Time Associated Diagnosis Comments CYTOPATHOLOGY Routine 07/08/2008 0:00 EDT documented in this encounter Results * CYTOPATHOLOGY (07/08/2008 0:00 EDT) Pathology Report: CYTOPATHOLOGY REPORT ? Reports generated via electronic interface contain original data; ? however they are lacking the format of the original report. ? Caution should be taken when reading/interpreti ng unformatted reports. ? Name: ? EMANUEL BLAIR ? Accession #: ? [id number] ? : ? 1975 (Age: 33) ??F ?Collect Date: ? 07/08/2008 ? Location: ? [facility] ? Receive Date: ? 07/09/2008 ? Provider: ?NHUNG WARNER CORE SHAPER ? Copy to: ?ELEAZAR J LAGUNAS MD ? Specimen/Source: ?Pap Test, Cervix/Endocervix, ThinPrep Imaging System ? with manual evaluation ? Last Menstrual Period: ? 10/8/08 ? Hormonal/Contracep tive Status: ? Yes: levelin ? Previous Gynecologic Pathology: ? HSIL: 1996 ? Treatment History: ? Colposcopy: 1996 ? Other: ? HPVA - HPV testing requested if ASC-US on the current ThinPrep Pap test. ? SPECIMEN ADEQUACY ? Satisfactory for Evaluation ? - transformation zone component present ? GENERAL CATEGORIZATION ? Negative for Intraepithelial Lesion or Malignancy ? INTERPRETATION ? Shift in gurdeep present suggestive of bacterial vaginosis. ? Document reviewed and electronically signed by: ? Siena F. Colasacco, SCT(ASCP) ? Report Date: ??07/11/2008 14:48 ? End of Report ? [facility] 07/08/2008 07/09/2008 Nhung Warner NP PATHOLOGY ORDERABLES [facility] [address] [place] [address] documented in this encounter Visit Diagnoses Not on filedocumented in this encounter
--- OUTSIDE RECORDS SUMMARY | 2024-04-28 16:01 | XMS_ITS | Encounter Summary ---
Author Organization [facility] Address [address] [place] [address] Care Team Providers Care Bobbin Washer Name Role Phone Unavailable Primary Care Provider Unavailabl e Encounter Details Date Type Department Care Team (Latest Contact Info) Description 03/17/2006 18:11 EDT Hospital Encounter [facility] - Other [address] [place] [address] Harshil Santillan MD [address] [place] [phone] Discharge Disposition: Home or Self Care Social [...] Info) Description 06/08/2024 13:30 EDT Office Visit [facility] [address] [facility] [address] [place], [place] [phone] Michelle Shannon MD [address] [place] [phone] documented as of this encounter Procedures Procedure Name Priority Date/Time Associated Diagnosis Comments TESTS ADDED BY PHONE Routine 03/17/2006 11:55 EDT COMPLETE BLOOD COUNT Routine 03/17/2006 11:55 EDT TSH Routine 03/17/2006 11:55 EDT FOLATE Routine 03/17/2006 11:55 EDT VITAMIN B12 Routine 03/17/2006 11:55 EDT documented in this encounter Results * TSH (03/17/2006 11:55 EDT) TSH 1.43 0.35 - 5.00 uIU/mL [facility] 03/17/2006 11:5 5 EDT 03/17/2006 19:05 EDT Harshil Santillan MD CHEMISTRY & BLOOD GAS ORDERABLES Performing Organization Address [facility] de Phone Number [facility] [address] [place] [address] * FOLATE (03/17/2006 11:55 EDT) Pathologist [facility] Folate 14.4 ng/mL [facility] Comment: Deficient: ??Less than 3.4 ng/mL Indeterminate: ??3.4-5.4 ng/mL Normal: ??Greater than 5.4 ng/mL 03/17/2006 11:5 5 EDT 03/17/2006 19:05 EDT Harshil Santillan MD CHEMISTRY & BLOOD GAS ORDERABLES Performing Organization Address [facility] de Phone Number [facility] [address] [place] [address] * (ABNORMAL) HEMAGRAM (03/17/2006 11:55 EDT) WBC 5.24 4.0 - 12.4 K/cmm [facility] RBC 3.78(L) 3.86 - 5.04 M/cmm [facility] Hemoglobin 13.0 11.6 - 15.2 gm/dl [facility] HCT 38.8 34.9 - 44.4 % [facility] MCV 103(H) 81 - 98 fl [facility] MCH 34.3(H) 26.7 - 33.3 pg [facility] MCHC 33.4 32.1 - 35.9 gm/dl [facility] PLT 308 141 - 320 K/cmm [facility] RDW-CV 13.2 11.7 - 14.6 % [facility] 03/17/2006 11:5 5 EDT 03/17/2006 19:05 EDT Harshil Santillan MD HEMATOLOGY & PF4 ORDERABLES Performing Organization Address City/[facility] Co de Phone Number [facility] [address] [place] [address] * VITAMIN B12 (03/17/2006 11:55 EDT) Vitamin B-12 457 250 - 1100 pg/ml [facility] 03/17/2006 11:5 5 EDT 03/17/2006 19:05 EDT Harshil Santillan MD CHEMISTRY & BLOOD GAS ORDERABLES Performing Organization Address City/[facility] Co de Phone Number [facility] [address] [place] [address] * TESTS ADDED BY PHONE (03/17/2006 11:55 EDT) Tests to be added B12,FOL [facility] Diagnosis Code SAME [facility] 03/17/2006 11:5 5 EDT 03/17/2006 19:05 EDT Harshil Santillan MD CHEMISTRY & BLOOD GAS ORDERABLES Performing Organization Address City/[facility] Co de Phone Number [facility] [address] [place] [address] documented in this encounter Visit Diagnoses Not on filedocumented in this encounter
--- OUTSIDE RECORDS SUMMARY | 2024-04-28 16:01 | XMS_ITS | Encounter Summary ---
Author Organization [facility] Address [address] [place] [address] Care Team Providers Care Sales Contracts Analyst Name Role Phone Unavailable Primary Care Provider Unavailabl e Encounter Details Date Type Department Care Team (Latest Contact Info) Description 02/03/2006 17:20 EDT Hospital Encounter [facility] - Other [address] [place] [address] Nhung Warner NP Discharge Disposition: Home or [...] Office Visit [facility] [address] [place] [address] Michelle Shannon MD [address] [place] [address] documented as of this encounter Procedures Procedure Name Priority Date/Time Associated Diagnosis Comments N. GONORRHOEAE AMPLIFIED PROBE Routine 02/03/2006 22:07 EDT ZZCHLAMYDIA TRACHOMATIS AMPLIFIED PROBE Routine 02/03/2006 22:07 EDT documented in this encounter Results * N. GONORRHOEAE AMPLIFIED PROBE (02/03/2006 22:07 EDT) Result No Neisseria gonorrhoeae DNA detected by meat market manager mediated amplification. [facility] Report Status Final [id number] [facility] Specimen Description Cervix [facility] 02/03/2006 22:0 7 EDT 02/03/2006 22:07 EDT Nhung Warner NP MICROBIOLOGY - GENER AL ORDERABLES Performing Organization Address [facility] de Phone Number [facility] [address] [place] [address] * CHLAMYDIA TRACHOMATIS AMPLIFIED PROBE (02/03/2006 22:07 EDT) Specimen Description Cervix [facility] Result No Chlamydia trachomatis DNA detected by meat market manager mediated amplification. [facility] Report Status Final [id number] [facility] 02/03/2006 22:0 7 EDT 02/03/2006 22:07 EDT Nhung Warner NP MICROBIOLOGY - GENER AL ORDERABLES Performing Organization Address [facility] Co de Phone Number [facility] [address] [place] [address] documented in this encounter Visit Diagnoses Not on filedocumented in this encounter
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
--- OUTSIDE RECORDS SUMMARY | 2024-04-28 16:01 | XMS_ITS | Encounter Summary ---
Author Organization [facility] Address [address] [place] [address] Care Team Providers Care Sander Setter Name Role Phone Unavailable Primary Care Provider Unavailabl e Encounter Details Date Type Department Care Team (Latest Contact Info) Description 05/18/2004 22:24 EDT Hospital Encounter [facility] - Other [address] [place] [address] Jeniffer Prabhakar, [employer] Discharge Disposition: Auto Discharge Social History Tobacco [...] Office Visit [facility] [address] [place] [address] Michelle Shannon MD [address] [place] [address] documented as of this encounter Procedures Procedure Name Priority Date/Time Associated Diagnosis Comments THYROID CASCADE Routine 10/07/2004 15:20 EST MONO-TEST Routine 10/07/2004 15:20 EST COMPLETE BLOOD COUNT Routine 10/07/2004 15:20 EST documented in this encounter Results * THYROID CASCADE (10/07/2004 15:20 EST) TSH 1.61 0.35 - 5.50 uIU/ml [facility] Comment: TSH cascade is not recommended for patients in which pituitary or hypothalamic disorders are suspected. 10/07/2004 15:2 0 EST 10/07/2004 17:29 EST Jeniffer Prabhakar [employer] CHEMISTRY & BLOOD GAS ORDERABLES Performing Organization Address [facility] Co de Phone Number [facility] [address] [place] [address] * (ABNORMAL) MONO-TEST (10/07/2004 15:20 EST) Terrell-Test Pos(A) NEG [facility] 10/07/2004 15:2 0 EST 10/07/2004 17:29 EST Jeniffer Prabhakar [employer] CHEMISTRY & BLOOD GAS ORDERABLES Performing Organization Address [facility] Co de Phone Number [facility] [address] [place] [address] * (ABNORMAL) HEMAGRAM (10/07/2004 15:20 EST) WBC 8.75 4.0 - 12.4 K/cmm [facility] RBC 4.15 3.86 - 5.04 M/cmm [facility] Hemoglobin 14.3 11.6 - 15.2 gm/dl [facility] HCT 42.3 34.9 - 44.4 % [facility] MCV 102(H) 81 - 98 fl [facility] MCH 34.3(H) 26.7 - 33.3 pg [facility] MCHC 33.7 32.1 - 35.9 gm/dl [facility] PLT 363(H) 141 - 320 K/cmm [facility] RDW-CV 12.2 11.7 - 14.6 % [facility] 10/07/2004 15:2 0 EST 10/07/2004 17:29 EST Jeniffer Prabhakar [employer]D [employer] SAL[employer] HEMATOLOGY & PF4 ORDERABLES Performing Organization Address City/State/[facility] Co de Phone Number [facility] [address] [place] [address] documented in this encounter Visit Diagnoses Not on filedocumented in this encounter
--- OUTSIDE RECORDS SUMMARY | 2024-04-28 16:01 | XMS_ITS | Encounter Summary ---
Author Organization [facility] Address [address] [place] [address] Care Team Providers Care Irb Compliance Coordinator Name Role Phone Unavailable Primary Care Provider Unavailabl e Encounter Details Date Type Department Care Team (Latest Contact Info) Description 04/13/2006 7:49 EDT - 04/13/2006 11:59 EDT Hospital En[facility] [address] [place] [address] Millicent Farley MD [address] [place] [address] Discharge Disposition: Auto Discharge Social History Tobacco [...] Office Visit [facility] [address] [facility] [address] [place], [place] [phone] Michelle Shannon MD [address] [place] [phone] documented as of this encounter Procedures Procedure Name Priority Date/Time Associated Diagnosis Comments WRIST 2 VIEWS 04/13/2006 8:20 EDT documented in this encounter Results * WRIST 2 VIEWS (04/13/2006 8:20 EDT) Anatomical Region Laterality Modality Other 04/13/2006 8:20 EDT Narrative 04/12/2009 14:17 EDT LEFT DISTAL RADIUS FX, DOI 04/02/06, ASSESS HEALING/ALIGNMENT LEFT WRIST 04/13/06, 0818 HOURS CLINICAL HISTORY: ??Distal radius fracture 04/02/06, assess healing and alignment. FINDINGS: PA and lateral views of the wrist show distal radial fracture without any evidence in change of alignment. D 04/13/06 T 04/15/06 /joao I have personally reviewed the images and the above interpretation and agree with the findings. Procedure Note Rangel Jean Baptiste DDS / Giovanni Cottrell MD - 04/12/2009 LEFT DISTAL RADIUS FX, DOI 04/02/06, ASSESS HEALING/ALIGNMENT LEFT WRIST 04/13/06, 0818 HOURS CLINICAL HISTORY: Distal radius fracture 04/02/06, assess healing and alignment. FINDINGS: PA and lateral views of the wrist show distal radial fracture without any evidence in change of alignment. D 04/13/06 T 04/15/06 /joao I have personally reviewed the images and the above interpretation and agree with the findings. Millicent Farley MD IMG DIAGNO STIC IMAGING ORDERABLES documented in this encounter Visit Diagnoses Not on filedocumented in this encounter
--- OUTSIDE RECORDS SUMMARY | 2024-04-28 16:01 | XMS_ITS | Encounter Summary ---
Author Organization [facility] Address [address] [place] [address] Care Team Providers Care Bingo Attendant Name Role Phone Apolinar Lee MD Primary Care Provider [phone] [phone] Encounter Details Date Type Department Care Team (Late st Contact Info) Description 11/10/2008 Before PRISM Converted Visit (Maple) [facility] - Maple conversion [address] [place] [address] Angelique Quezada MD [address] [place] [address], [address] [place] [address] Social History Tobacco Use Types Packs/Day Years Used Date Smoking Tobacco: Never Assessed Sex and Gender Information Value Date Recorded Sex Assigned at Not on file Gender Identity Female 11/10/2020 8:41 EST Sexual Orientation Straight 12/07/2023 23 :06 EDT documented as of this encounter Miscellaneous Notes * Study - Angelique Quezada - 04/19/2009 5156 EDT [facility] SERVICE DATE: 11/11/2008 MULTIPLE SLEEP LATENCY REPORT Study #[id number] Date of Service: 11/11/2008 Referring Physician/Provider: Yadira Mac MD CLINICAL HISTORY A 33-year-old woman with long sleep periods and daytime sleepiness as well as unusual behaviors during the night. MEDICATIONS Cymbalta, Gianna, Alavert, Abilify, Klonopin and Topamax. Weigh: 130 lb. TECHNICAL DESCRIPTION A Multiple Sleep Latency Test is perform on 11/11/2008 attended by a trained biomedical engineering technologist.Monitored channels include: EEG channels C3/A2, C4/A1, O2/A1, O1/A2; left & right EOG; submental EMG; & single lead EKG. PATIENT'S SUBJECTIVE DESCRIPTION On the night prior to the MSLT the patient underwent a diagnostic polysomnogram. There were 550 minutes of sleep time documented. Please see report. Prior to all naps, the patient felt foggy or sleepy. She did not think she slept on each of the naps although she did feel that she dreamt on the firsttwo but was not sure about the last two. FINDINGS Sleep Latency (SL) Sleep Onset REM Period (SOREMP) Nap 1 - 4 minutes No Nap 2 - 9 minutes Yes Nap 3 - 8 minutes No Nap 4 - 7 minutes Yes Average sleep onset latency of 7 minutes with two sleep onset REM periods. CONCLUSION Abnormal MSLT. Clinical correlation is necessary. DISPOSITION The patient is scheduled to followup at the [facility]. Signed by Angelique Quezada MD 11/22/2008 11:11 Angelique Quezada MD Board Certified in Pulmonary and Sleep Medicine - Angelique Quezada MD A - GRICELDA Job ID: [id number] Document ID: [id number] cc: MD Bryce Orozco MD * Study - Angelique Quezada - 04/19/2009 2346 EDT [facility] SERVICE DATE: 11/10/2008 OVERNIGHT DIAGNOSTIC POLYSOMNOGRAM Study # [id number] Date of Service: November 10, 2008 Requesting Provider: Yadira Mac MD CLINICAL HISTORY A 33-year-old woman with long sleep time and daytime sleepiness as well as unusual behaviors duringsleep. She is here for a diagnostic polysomnogram with full head EEG to be followed by an MSLT. MEDICATIONS 1. Gianna. 2. Alavert. 3. Cymbalta. 4. Abilify. 5. Klonopin 5 mg at hour of sleep. 6. Topamax 50 mg at hour of sleep. WEIGHT 130 pounds. TECHNICAL DESCRIPTION An overnight polysomnogram was performed on the night of 11/10/2008 attended by a trained biomedical engineering technologist. Monitoring channels included: EEG channels C2/A2, C4/A1, O2/A1, O1/A2; left and right EOG; submental EMG; bilateral anterior tibialis EMG; thoracic and abdominal respiratory effort and snoring by piezo-electric transducers; airflow by nasal cannula pressure and oral thermocouple; pulseoximetry; single lead EKG; body position. Selective review of events of interest are available fromvideo recording. PATIENT'S SUBJECTIVE DESCRIPTION On the night prior to the polysomnogram the patient estimated sleep time at 6 hours. She had a caffeinated beverage in the morning, no alcohol and did not nap. On the night of the polysomnogram the patient estimated sleep time at 7 hours and slept restlessly compared with at home and was tired in the morning. FINDINGS 1. Sleep: Lights out occurred at 9:15 p.m. Sleep onset latency was normal at 10 minutes. REM onset latency was prolonged at 346 minutes. The patient slept a total of 550 minutes out of 614 minutes inbed resulting in a sleep efficiency of 90% due to frequent brief awakenings as well as a 20 minute period of wakefulness occurring at 1:24 a.m. Sleep stage distribution is unremarkable with REM 15%, NI 5% and PATRICIO 80%. Sleep is mildly fragmented by spontaneous arousals which are associated with position changes or movement with an arousal index of 9 per hour. 2. Respiratory: Normal breathing during sleep with regular respirations and no evidence of obstructive sleep apnea. Total-AHI is 0 in all positions as well as in both REM and NREM sleep. Breathing isquiet. 3. Oxygen saturation: The average oxygen saturation was 97% with a desaturation index of 0. 4. Cardiac: Normal sinus rhythm with an average heart rate of 75% bpm. 5. Movement/Position: The patient slept 151 minutes supine, 148 minutes prone, 89 minutes in the left lateral position and 162 minutes in the right lateral position. PLM index of 1. There is evidenceof increased muscle tonein both the chin EMG and leg EMG during REM sleep. No gross movement however is observed during REM sleep. CONCLUSION 1. Normal breathing and oxygen saturation in sleep. 2. No PLMs. 3. Polysomnographic data is consistent with REM behavior disorder with the presence of REM sleep without atonia. No gross motor activity however was observed. 4. Sleep as described above. Full head EEG is reported elsewhere. 5. There is discrepancy between the patients perception of sleep duration and the objective data ofsleep duration. PLAN: The patient will proceed to MSLT. Followup at the [facility] to discuss results. Signed by Angelique Quezada MD 11/22/2008 11:11 Angelique Quezada MD Board Certified in Pulmonary and Sleep Medicine - Angelique Quezada MD A - GRICELDA Job ID: [id number] Document ID: [id number] cc: MD Bryce Winkler MD documented in this encounter Plan of Treatment Upcoming Encounters Date Type Department Care Team (Late st Contact Info) Description 06/08/2024 13:30 EDT Office Visit [facility] 550 [facility] [address] [place] [address] Michelle Sahnnon MD [address] [place] [phone] documented as of this encounter Visit Diagnoses Not on filedocumented in this encounter Care Teams Bingo Attendant Relationship Specialty Start Date End Date Apolinar Lee MD [address] [place] [address] PCP - General 01/16/09 09/07/11 documented as of this encounter
--- OUTSIDE RECORDS SUMMARY | 2024-04-28 16:01 | XMS_ITS | Encounter Summary ---
Author Organization [facility] Address [address] [place] [address] Care Team Providers Care Title Insurance Sales Representative Name Role Phone Apolinar Lee MD Primary Care Provider [phone] [phone] Reason for Visit * Reason Onset Date Comments Medications Refill 06/19/2010 Encounter Details Date Type Department Care Team (Late st Contact Info) Description 06/19/2010 Refill [facility] [address] [place] [address] [place], [place] [phone] Juliana Díaz RN [address] [place] [address] Medications Refill Social History Tobacco Use Types Packs/Day Years Used Date Smoking Tobacco: Never Assessed Sex and Gender Information Value Date Recorded Sex Assigned at Not on file Gender Identity Female 11/10/2020 8:41 EST Sexual Orientation Straight 12/07/2023 23 :06 EDT documented as of this encounter Miscellaneous Notes * Telephone Encounter - Juliana Díaz RN - 06/19/2010 1203 EDT Called in the Clonazepam as ordered by Dr. Prince Turner today to [facility] documented in this encounter Plan of Treatment Upcoming Encounters Date Type Department Care Team (Late st Contact Info) Description 06/08/2024 13:30 EDT Office Visit [facility] [address] [place] [address] Michelle Shannon MD [address] [place] [phone] documented as of this encounter Visit Diagnoses Not on filedocumented in this encounter Care Teams Title Insurance Sales Representative Relationship Specialty Start Date End Date Apolinar Lee MD [address] [place] [phone] PCP - General 01/16/09 09/07/11 documented as of this encounter
--- OUTSIDE RECORDS SUMMARY | 2024-04-28 16:01 | XMS_ITS | Encounter Summary ---
Author Organization [facility] Address [address] [place] [address] Care Team Providers Care Jig Box Operator Name Role Phone Apolinar Lee MD Primary Care Provider [phone] [phone] Encounter Details Date Type Department Care Team (Late st Contact Info) Description 01/21/2009 14:30 EDT - 01/21/2009 14:[address] [facility] - [facility] [address] [place], [place] [phone] Yadira Mac MD [facility] MAIL [address] [place] [address] Discharge Disposition: Home or Self Care Social History Tobacco Use Types Packs/Day Years Used Date Smoking Tobacco: Never Assessed Sex and Gender Information Value Date Recorded Sex Assigned at Not on file Gender Identity Female 11/10/2020 8:41 EST Sexual Orientation Straight 12/07/2023 23 :06 EDT documented as of this encounter Discharge Disposition Disposition Code Departure Means Destination Home or Self Intermediate documented in this encounter Plan of Treatment Upcoming Encounters Date Type Department Care Team (Late st Contact Info) Description 06/08/2024 13:30 EDT Office Visit [facility] 550 [facility] [address] [place] [address] Michelle Shannon MD [address] [place] [phone] documented as of this encounter Procedures Procedure Name Priority Date/Time Associated Diagnosis Comments CYTOPATHOLOGY Routine 07/14/2009 0:00 EDT documented in this encounter Results * CYTOPATHOLOGY (07/14/2009 0:00 EDT) Pathology Report: CYTOPATHOLOGY REPORT ? Reports generated via electronic interface contain original data; ? however they are lacking the format of the original report. ? Caution should be taken when reading/interpreti ng unformatted reports. ? Name: ? EMANUEL BLAIR ? Accession #: ? [id number] ? : ? 1975 (Age: 34) ??F ?Collect Date: ? 07/14/2009 ? Location: ? [facility] ? Receive Date: ? 07/15/2009 ? Provider: ?FATOUMATA MARCUM NP ? Copy to: ? Specimen/Source: ?Pap Test, Cervix/Endocervix, ThinPrep Imaging System ? with manual evaluation ? Last Menstrual Period: ? 09/20/09 ? Hormonal/Contracep tive Status: ? Yes: Gianna ? Previous Gynecologic Pathology: ? HSIL: 96 ? Treatment History: ? Colposcopy ? Other: ? HPVA - HPV testing requested if ASC-US on the current ThinPrep Pap test. ? SPECIMEN ADEQUACY ? Satisfactory for Evaluation ? - transformation zone component present ? GENERAL CATEGORIZATION ? Negative for Intraepithelial Lesion or Malignancy ? INTERPRETATION ? Shift in gurdeep present suggestive of bacterial vaginosis. ? Document reviewed and electronically signed by: ? Damian N. Ray, CT(ASCP) ? Report Date: ??07/22/2009 16:24 ? End of Report ? [facility] 07/14/2009 07/15/2009 Fatoumata Marcum BRAND ANALYST PATHOLOGY ORDERABLES Performing Organization Address [facility]/State/ZIP Co de Phone Number [facility] [address] [place] [address] documented in this encounter Visit Diagnoses Not on filedocumented in this encounter Care Teams Jig Box Operator Relationship Specialty Start Date End Date Apolinar Lee MD [address] [place] [phone] PCP - General 01/16/09 09/07/11 documented as of this encounter
--- OUTSIDE RECORDS SUMMARY | 2024-04-28 16:01 | XMS_ITS | Encounter Summary ---
Author Organization [facility] Address [address] [place] [address] Care Team Providers Care Electric Motor Repairman Name Role Phone Unavailable Primary Care Provider Unavailabl e Encounter Details Date Type Department Care Team (Late st Contact Info) Description 05/04/2006 10:25 EDT Hospital Encounter [facility] - [address] [address] Joaquin Jimenez MD [address] [place] [phone] Social History Tobacco Use Types Packs/Day [...] Info) Description 06/08/2024 13:30 EDT Office Visit [facility], [address] [place] [address] Michelle Shannon MD [address] [place] [address] documented as of this encounter Visit Diagnoses Not on filedocumented in this encounter
--- OUTSIDE RECORDS SUMMARY | 2024-04-28 16:01 | XMS_ITS | Encounter Summary ---
Author Organization [facility] Address [address] [place] [address] Care Team Providers Care Skip Tracer Name Role Phone Unavailable Primary Care Provider Unavailabl e Encounter Details Date Type Department Care Team (Latest Contact Info) Description 05/04/2006 10:45 EDT - 05/04/2006 11:59 EDT Hospital Encounter [facility] [address] [place] [address] Millicent Farley MD [address] [place] [id number] Discharge Disposition: Auto Discharge Social History Tobacco [...] Description 06/08/2024 13:30 EDT Office Visit [facility] [address] [facility] [address] [place], [place] [phone] Michelle Shannon MD [address] [place] [phone] documented as of this encounter Procedures Procedure Name Priority Date/Time Associated Diagnosis Comments WRIST 2 VIEWS 05/04/2006 11:44 EDT documented in this encounter Results * WRIST 2 VIEWS (05/04/2006 11:44 EDT) Anatomical Region Laterality Modality Other 05/04/2006 11:4 4 EDT Narrative 04/12/2009 14:33 EDT LEFT DISTAL RADIUS FX, Assess healing/alignment X-RAY OF THE LEFT WRIST, TWO VIEWS. CLINICAL HISTORY: Left distal radius fracture, assess healing and alingment. FINDINGS: ??There is a healing, undisplaced fracture of the distal radius. ??In comparison with the x-ray of 04/13/06, some sclerosis has appeared at the site of the fracture. ??The healing is still incomplete. The alignment is anatomic. D: ??05/04/06 T: ??05/05/06 /chseter. Procedure Note Geovanna Maya MD - 04/12/2009 LEFT DISTAL RADIUS FX, Assess healing/alignment X-RAY OF THE LEFT WRIST, TWO VIEWS. CLINICAL HISTORY: Left distal radius fracture, assess healing and alingment. FINDINGS: There is a healing, undisplaced fracture of the distal radius. In comparison with the x-ray of 04/13/06, some sclerosis has appeared at the site of the fracture. The healing is still incomplete. The alignment is anatomic. /chester. Millicent Farley MD IMG DIAGNO STIC IMAGING ORDERABLES documented in this encounter Visit Diagnoses Not on filedocumented in this encounter
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
--- OUTSIDE RECORDS SUMMARY | 2024-04-28 16:01 | XMS_ITS | Encounter Summary ---
Author Organization [facility] Address [address] [place] [address] Care Team Providers Care Bronc Buster Name Role Phone Apolinar Lee MD Primary Care Provider +1 [phone] Encounter Details Date Type Department Care Team (Late st Contact Info) Description 03/03/2007 Office Visit [facility] - Maple conversion [address] [place] [address] Vazquez Jasmine PA-C [address] [place] [phone] Social History Tobacco Use Types Packs/Day Years Used Date Smoking Tobacco: Never Assessed Sex and Gender Information Value Date Recorded Sex Assigned at Not on file Gender Identity Female 11/10/2020 8:41 EST Sexual Orientation Straight 12/07/2023 23 :06 EDT documented as of this encounter Progress Notes * Vazquez Monreal PA - 11/16/2009 0206 EST Department - Physician Summary Registration Date/Time: 03/03/2007 21:32 Time Seen; upon arrival. Arrived- By private vehicle. Historian- patient. HISTORY OF PRESENT ILLNESS Chief Complaint: DYSURIA. urinary frequency. This started 1 weeks ago and still present. The symptoms are described as moderate. The patient has had moderate abdominal pain. The pain is described as located in the suprapubic region. The patient has had urinary frequency. She has had urgency of urination and mild pain with urination. No pelvic pain, vaginal pain, low back pain, flank pain or hematuria. Patient has not had similar symptoms previously. Not recently seen/assessed. REVIEW OF SYSTEMS No nausea, vomiting, diarrhea, headache or fever. No chills, anorexia, eye discomfort, sore throat or cough. No difficulty breathing or chest pain. PAST HISTORY See nurses notes. Medications: The patient's medications have been reviewed. Allergies: The patient's allergies have been reviewed. ADDITIONAL NOTES The nursing notes have been reviewed. PHYSICAL EXAM Appearance: Alert. Oriented X3. No acute distress. Vital Signs: Have been reviewed. Neck: Neck supple. CVS: Heart sounds normal. Respiratory: No respiratory distress. Abdomen: Abdomen soft and nontender. Back: Normal external inspection. No CVA tenderness. Skin: Normal skin color. Skin warm and dry. Neuro: Oriented X 3. LABS, X-RAYS, AND EKG Bedside Tests: Urine dipstick negative (see n.n.). HCG: Urine HCG negative. PROGRESS AND PROCEDURES E.D. Course: Patient is stable. pt with good story for UTI, but clean urine. discussed alternative dx, pt will trial bactrim DS x 3 d, and see pmd in 5. discussed diff. dx. Patient counseled in person regarding the patient's stable condition and need for follow-up. ED Attending on duty and available for supervision: Josue Reid. Disposition: Discharged home in good condition (22:07). Condition: good. Discharged home in good condition (22:04). CLINICAL IMPRESSION Dysuria. Probable urinary tract infection. INSTRUCTIONS Rest. Drink plenty of fluids. we are treating you for your dysuria, it is possible you have a UTI, however, our initial testing in the ED is normal. Your story is convincin of a urinary tract infetion,. However, you shoudl see gabriel PMD in 5 days for a re-eval. If you are not better, you need to explore other avenues as to why you have this dysuria, frequency, etc. Warnings: Further evaluation is necessary. GENERAL WARNINGS: Return or contact your physician immediately if your condition worsens or changesunexpectedly, if not improving as expected, or if other problems arise. fever, back pain . Prescription Medications: Septra DS 800 mg / 160 mg: take 1 tablet orally every 12 hours for 2 days. No refill. Generic substitute OK. Follow-up: ELEAZAR LEE MD, Internal Medicine, , [facility], [facility] [place], [address]. Follow up in five days even if well. Call for an appointment. Understanding of the discharge instructions verbalized by patient. (Electronically signed by Patito Garcia 03/03/2007 22:08) Department - Nursing Summary Registration Date/Time: 03/03/2007 21:32 TRIAGE Initial Assessment Triage time 2129. Acuity: LEVEL 4. BP: 120 / 82. HR: 102. RR: 16. Temp: 36.7. --2137 Nola Stark R.N.. Medications (levelin cymbalta, zanax). --2137 Nola Stark R.N.. Allergies No known drug allergies. --2137 Nola Stark R.N.. History Chief Complaint: PAINFUL URINATION and FREQUENCY. This started just prior to arrival. Pain level now: 1/10. PAST HX: Last normal menstrual period- about 3 weeks ago. Historian: patient. --2137 Nola Stark R.N.. NURSING PROGRESS NOTES Urine dipstick (SG <=1.005, pH 5.5, remaining negative). Urine test negative. --2153 Gera Aguilera (PERICO in to evaluate pt.). --2157 Roxana Becker R.N. BACTRIM DS SP # [id number] PO. . --2205 Roxana Becker R.N.. DISPOSITION / DISCHARGE Patient reports pain level on departure as 1/10. Condition at departure: unchanged. No learning barriers present. Discharge instructions reviewed with the patient. Reviewed medication side effects, precautions, dosing and course; prescription (s) given to the patient (Bactrim DS). Patient verbalized understanding. Written instructions provided in Indonesian. The patient was discharged to work and unaccompanied at time of discharge. The patient left the Emergency Department ambulatory. --2216 Roxana Becker R.N.. Gera Cabrera R.N., R.N. Locked/Released at 03/03/2007 22:16 by Roxana Becker R.N. documented in this encounter Plan of Treatment Upcoming Encounters Date Type Department Care Team (Late st Contact Info) Description 06/08/2024 13:30 EDT Office Visit [facility] 550 [facility] [address] [place] [address] Michelle Shannon MD [address] [place] [phone] documented as of this encounter Visit Diagnoses Not on filedocumented in this encounter Care Teams Bronc Buster Relationship Specialty Start Date End Date Apolinar Lee MD [address] [place] [address] PCP - General 01/16/09 09/07/11 documented as of this encounter
--- OUTSIDE RECORDS SUMMARY | 2024-04-28 16:01 | XMS_ITS | Encounter Summary ---
Author Organization [facility] Address [address] [place] [address] Care Team Providers Care Set Decorator Name Role Phone Apolinar Lee MD Primary Care Provider +1 [phone] Encounter Details Date Type Department Care Team (Late st Contact Info) Description 11/10/2008 Before PRISM Converted Visit (Maple) [facility] - Maple conversion [address] [place] [address] Viktoriya Brasher MD [address] [facility] [address] [place] [phone] Social History Tobacco Use Types Packs/Day Years Used Date Smoking Tobacco: Never Assessed Sex and Gender Information Value Date Recorded Sex Assigned at Not on file Gender Identity Female 11/10/2020 8:41 EST Sexual Orientation Straight 12/07/2023 23 :06 EDT documented as of this encounter Procedure Notes * Viktoriya Brasher* MD ROSSY - 04/19/2009 2370 EDT CLINICAL NEUROPHYSIOLOGY LABORATORY ALL NIGHT EEG (concomitantly with a PSG recording) SERVICE DATE: 11/10/2008 REFERRING PROVIDER: Angelique Quezada MD PRIMARY CARE PHYSICIAN: Jarocho Lee CLINICAL HISTORY This is a 33-year-old woman with excessive daytime sleepiness and dream enacting behavior on Klonopin, Cymbalta and Abilify. TECHNICAL DESCRIPTION International 10-20 system of electrode placement and a CPZ reference electrode. The study is performed under the supervision of a registered EEG Technologists. No pain assessment for this procedure is necessary. A minimum of 33 minutes is recorded. Anterior temporal leads are utilized to enhance coverage in those areas. FINDINGS 1. The study starts at 9:14:48 PM and ends at 7:28:48 AM. 2. The awake recording is characterized by 11 Hz posterior dominant alpha activity of about 30-40 uV in amplitude. Anteriorly, there is lower voltage more irregular beta frequency rhythms 3. Stage NI sleep is characterized by diffuse theta slowing 30-40 uV in amplitude and deteriorationof the posterior dominant alpha rhythm together with occasional 40-50 uV in amplitude delta activity. 4. Stage PATRICIO is characterized by bilaterally symmetrical, synchronous, dense and long spindles and vertex waves. Spindles are about 14-16 Hz in frequency, 5-6 seconds in duration and isolated vertex waves of 70-75 uV in amplitude. There are also frequent positive occipital sharp transients of sleep(POSTS). 5. Stage NIII is not recorded 6. Stage R sleep is characterized by 20-30 uV in amplitude theta and alpha mixture with occasional centrally predominant sawtooth waves of 6-7 Hz. There are also bursts of rapid eye movements in the EOG channels. 7. There are no epileptiform discharges no focal or paroxysmal abnormalities and no interhemispheric asymmetries. No episodes are captured during this recording. IMPRESSION Normal all night EEG. No evidence for epileptiform abnormality or any focal or paroxysmal abnormalities or electrographic seizures. Signed by Viktoriya Brasher MD 11/15/2008 10:28 Viktoriya Brasher MD [facility] [place] Diplomate D: Viktoriya Brasher MD A - GRICELDA Job ID: Document ID: [id number] cc: MD Jarocho Winkler MD documented in this encounter Plan of Treatment Upcoming Encounters Date Type Department Care Team (Late st Contact Info) Description 06/08/2024 13:30 EDT Office Visit [facility] [address] [address] Michelle Shannon MD [address] [place] [phone] documented as of this encounter Visit Diagnoses Not on filedocumented in this encounter Care Teams Set Decorator Relationship Specialty Start Date End Date Apolinar Lee MD [address] [place] [phone] PCP - General 01/16/09 09/07/11 documented as of this encounter
--- OUTSIDE RECORDS SUMMARY | 2024-04-28 16:01 | XMS_ITS | Encounter Summary ---
Author Organization [facility] Address [address] [place] [address] Care Team Providers Care Trigonometry Tutor Name Role Phone Apolinar Lee MD Primary Care Provider +1 [phone] Encounter Details Date Type Department Care Team (Late st Contact Info) Description 05/07/2005 Office Visit [facility] - Maple conversion [address] [place] [address] Yovany Pearce, ETHNOLOGY TEACHER [address] [place] [address] Social History Tobacco Use Types Packs/Day Years Used Date Smoking Tobacco: Never Assessed Sex and Gender Information Value Date Recorded Sex Assigned at Not on file Gender Identity Female 11/10/2020 8:41 EST Sexual Orientation Straight 12/07/2023 23 :06 EDT documented as of this encounter Progress Notes * Adan, Conv Sign Board Erector - 11/27/2009 1814 EST Care Center - Physician Summary Registration Date/Time: 05/07/2005 15:01 Time Seen: 16:39 May 07 2005 Arrived- By private vehicle. Historian- patient. HISTORY OF PRESENT ILLNESS Chief Complaint- DOG BITE. Location of injuries- left hand. The patient was bittenby a dog (family pet). The accident occurred just prior to arrival. The animal reportedly appeared well, is up to date on immunizations and can be observed for ten days. Animal control has been notified. Animals were fighting. Occurred at home. Severity of injury- The patient was scratched and had mucous membrane contact. REVIEW OF SYSTEMS No numbness, weakness or tingling. All systems otherwise negative, except as recorded above. PASTHISTORY See nurses notes. Tetanus immunization status is up-to-date. Medications: See nurses notes. Allergies: See nurses notes. SOCIAL HISTORY No recent travel. Is a local resident. ADDITIONAL NOTES The nursing notes have been reviewed. PHYSICAL EXAM Appearance: Alert. No acute distress. Vital Signs: The vital signs have been reviewed. Head: Head normal oninspection and non-tender. Eyes: Eyes normal inspection. Neck: Normal inspection. Neck non-tender. CVS: Heart sounds normal. Pulses normal. Respiratory: Breath sounds normal. Chest nontender. Back: Normal inspection. No back tenderness. Skin: Normal skin color. Skin warm. Extremities: Soft tissue tenderness present. No bony tenderness. Thenar eminence, left hand: mild tenderness and superficial 0.5 cm laceration. No swelling or ecchymosis. No limitation in movement ofthe thumb. Neuro: Oriented X 3. No motor deficit. No sensory deficit. PROGRESS AND PROCEDURES Attending on duty and available for supervision (Brent). Disposition: Condition: good and stable. Discharged home in good condition and stable condition. CLINICAL IMPRESSION Single superficial dog bite to left hand. Superficial laceration to left hand. INSTRUCTIONS Apply ice intermittently (15-20 minutes at a time 4-6 times daily). Protect wound and keep wound area clean. Change dressing daily. You may wash wounds briefly, then dry. Apply neosporin daily. Warnings: INJURY COMPLICATIONS: Complications from this injury are possible. You may have future problems such as wound infection. INFECTION: Watch for signs of infection (increasing heat and redness, pus-like drainage, swelling, or increased pain). Return or see your doctor if these signs occur. GENERAL WARNINGS: Return or contact your physician immediately if your condition worsens or changesunexpectedly, if not improving as expected, or if other problems arise. OTC Medications: Acetaminophen 500 mg (available over the counter): take 2 orally every 6 hours as needed for pain. Follow-up: Follow up with your doctor in four days if not better. (Electronically signed by Yovany Pearce A.P.R.N. 05/07/2005 21:41) Care Center - Nursing Summary Registration Date/Time: 05/07/2005 15:01 TRIAGE Initial Assessment Triage time 15:09 BP: 104 / 62 HR: 72 RR: 18 Temp: 97 F. --1514 Cristina Thornton, Triage time 15:20 --1525 Geo Zacarias, Medications control pills. Celexa. --1514 Cristina Norberto, Allergies No known drug allergies. --1514 Cristina Cleburne, History Chief Complaint: INJURY TO LEFT HAND. PAST HX: Negative. SOCIAL HX: Nonsmoker. --1513 Cristina Thornton, Chief Complaint: INJURY TO LEFT HAND. This occurred today (about 1430). Mechanism of injury: the patient sustained a dog bite (two dogs fighting, grabbed her dogs collor and roomates dog came back at her dog - she was bittenon Lt. hand (x1 puncture wound) just below thumb.). Pain level now: 4/10. (she knows both dogs and reports all vaccinations are up to date (her dog and her roomates dog)). Treatment AGRICULTURAL EDUCATION INSTRUCTOR: Ice and (rinse with water). PAST HX: Anxiety. No history of previous surgery. Tetanus status: up-to-date and (2003 - at start of school). Arrived by private vehicle. Historian: patient. --1525 Geo Zacarias, PHYSICAL ASSESSMENT Ambulatory to room. Alert. Appears in no acute distress. Oriented X 3. Capillary refill is less than 2 seconds in the extremities. Extremity pulses are within normal limits. Extremities exhibit normal ROM. Thenar eminence, left hand: mild tenderness and swelling and 1.0 cm laceration. No abrasion, ecchymosis or deformity. (no numbness/tingling of thumb). Skin is warm and dry. --1527 Geo Zacarias, NURSING PROGRESS NOTES Progress Cold pack applied. Wound cleansed with water and Hibiclens. Call light placed in reach. Side rails up x 1. Bed placed in lowest position. Brakes of bed on. Patient ready for evaluation- chart flagged. --1527 Geo Zacarias, (At 1540 phoned [place] police department at [phone] to report the dog bite, spoke with Chaitanya -he connected me to voice mail of Paradise Rothman (animal anatomy teacher), Chaitanya instructed me on info to leave on voice mail - pt. name, phone number and address, also reported that the dogs involved were her and her roomates dogs. Left my name and phone number to walk-in care. ). --1544 Geo Zacarias, (pt. vet is [facility] in [place], her roomate is Layne [place] and her vet is [facility] in [place]. ). --1547 Geo Zacarias, Dressing consisting of Band-Aid was applied, following the application of antibiotic ointment. --1651 Chela Chan L.P.N. DISPOSITION / DISCHARGE Patient reports pain level on departure as 0/10. Condition at departure: stable. No barriers to learning present. Discharge instructions reviewed with the patient. Patient verbalized understanding. Written instructions provided in Jordanian. The patient was discharged home. The patient left the Emergency Department ambulatory and via private vehicle. Patient driving. Departure time: 16:52 --1651 Chela Chan L.P.N. Locked/Released at 05/07/2005 16:52 by Chela Chan L.P.N. documented in this encounter Plan of Treatment Upcoming Encounters Date Type Department Care Team (Late st Contact Info) Description 06/08/2024 13:30 EDT Office Visit [facility] 550 [facility] [address] [place] [address] Michelle Shannon MD [address] [place] [phone] documented as of this encounter Visit Diagnoses Not on filedocumented in this encounter Care Teams Trigonometry Tutor Relationship Specialty Start Date End Date Apolinar Lee MD [address] [place] [address] PCP - General 01/16/09 09/07/11 documented as of this encounter
--- OUTSIDE RECORDS SUMMARY | 2024-04-28 16:01 | XMS_ITS | Encounter Summary ---
Author Organization [facility] Address [address] [place] [address] Care Team Providers Care Orthopedic Assistant Name Role Phone Apolinar Lee MD Primary Care Provider +1 [phone] Encounter Details Date Type Department Care Team (Late st Contact Info) Description 02/03/2006 Results Only [facility] - Maple conversion [address] [place], [place] [address] [phone] Fatoumata Warner NP Social History Tobacco Use [...] Office Visit [facility] 550 [facility] [address] [place] [address] Michelle Shannon MD [address] [place] [phone] documented as of this encounter Procedures Procedure Name Priority Date/Time Associated Diagnosis Comments CYTOPATHOLOGY Routine 02/03/2006 0:00 EDT documented in this encounter Results * CYTOPATHOLOGY (02/03/2006 0:00 EDT) Pathology Report: CYTOPATHOLOGY REPORT Reports generated via electronic interface contain original data; however they are lacking the format of the original report. Caution should be taken when reading/interpreti ng unformatted reports. Name: ? EMANUEL TRONCOSO ? Accession #: ? [id number] : ? 1975 (Age: 30) ??F ?Collect Date: ? 02/03/2006 Location: ? [facility] ? Receive Date: ? 02/04/2006 Provider: ?FATOUMATA WARNER NP Copy to: ?ELEAZAR LEE MD ? Specimen/Source: ?ThinPrep Pap Test, Cervix/Endocervix, processed on [employer] ThinPrep Imaging System, with manual evaluation Last Menstrual Period: ? 01/25/06 ? SPECIMEN ADEQUACY ? Satisfactory for Evaluation - transformation zone component present GENERAL CATEGORIZATION ? Negative for Intraepithelial Lesion or Malignancy ? Document reviewed and electronically signed by: ? ИВАН Peterson(ASCP) ? Report Date: ??02/08/2006 08:13 End of Report [facility] 02/03/2006 02/04/2006 Fatoumata Warner NP PATHOLOGY ORDERABLES [facility] [address] [place] [address] documented in this encounter Visit Diagnoses Not on filedocumented in this encounter Care Teams Orthopedic Assistant Relationship Specialty Start Date End Date Apolinar Lee MD [address] [place] [phone] PCP - General 01/16/09 09/07/11 documented as of this encounter
--- OUTSIDE RECORDS SUMMARY | 2024-04-28 16:01 | XMS_ITS | Encounter Summary ---
Author Organization [facility] Address [address] [place] [address] Care Team Providers Care Manager Pathology Name Role Phone Apolinar Lee MD Primary Care Provider [phone] [phone] Encounter Details Date Type Department Care Team (Late st Contact Info) Description 01/27/2004 Results Only [facility] Health - Main [place] [address] [place], [place] [id number] Health, Nurse Employee Social History Tobacco Use Types Packs/Day Years [...] Description 06/08/2024 13:30 EDT Office Visit [facility], [address] [facility] [address] [place] [address] Michelle Shannon MD [address] [place] [phone] documented as of this encounter Procedures Procedure Name Priority Date/Time Associated Diagnosis Comments RUBELLA IGG AB Routine 01/27/2004 10:12 EDT MEASLES IGG AB Routine 01/27/2004 10:12 EDT HEPATITIS B SURFACE ANTIBODY Routine 01/27/2004 10:12 EDT documented in this encounter Results * RUBELLA IGG AB (01/27/2004 10:12 EDT) Rubella IgG Scr Antibody detected [facility] 01/27/2004 10:1 2 EDT 01/27/2004 10:13 EDT Nurse Employee Health HISTORICAL LAB FOR SQ LOAD Performing Organization Address [facility] de Phone Number [facility] [address] [place] [address] * RUBEOLA IGG ANTIBODY (01/27/2004 10:12 EDT) Rubeola IgG Ab Antibody detected [facility] 01/27/2004 10:1 2 EDT 01/27/2004 10:13 EDT Nurse Employee [facility] IMMUNOLOGY AND SER OLOGY ORDERABLES Performing Organization Address [facility] de Phone Number [facility] [address] [place] [address] * HEPATITIS B SURFACE ANTIBODY (01/27/2004 10:12 EDT) Hepatitis B Surface [facility] Pos [facility] 01/27/2004 10:1 2 EDT 01/27/2004 10:13 EDT Nurse Employee Health CHEMISTRY & BLOOD GAS ORDERABLES Performing Organization Address [facility] de Phone Number [facility] [address] [place] [address] documented in this encounter Visit Diagnoses Not on filedocumented in this encounter Care Teams Manager Pathology Relationship Specialty Start Date End Date Apolinar Lee MD [address] [place] [address] PCP - General 01/16/09 09/07/11 documented as of this encounter
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
--- OUTSIDE RECORDS SUMMARY | 2024-04-28 16:01 | XMS_ITS | Encounter Summary ---
Author Organization [facility] Address [address] [place] [address] Care Team Providers Care Clipper Counters Name Role Phone Apolinar Lee MD Primary Care Provider [phone] Encounter Details Date Type Department Care Team (Late st Contact Info) Description 02/06/2009 Orders Only [facility] [address] [place], [place] [id number] Yadira Mac MD [facility] ST[facility] MAIL [address] [place] [address] Social History Tobacco Use Types Packs/Day Years [...] Office Visit [facility] [address] [facility] [address] [place] [address] Michelle Shannon MD [address] [place] [address] documented as of this encounter Visit Diagnoses Not on filedocumented in this encounter Care Teams Clipper Counters Relationship Specialty Start Date End Date Apolinar Lee MD [address] [place] [phone] PCP - General 01/16/09 09/07/11 documented as of this encounter
--- OUTSIDE RECORDS SUMMARY | 2024-04-28 16:01 | XMS_ITS | Encounter Summary ---
Author Organization [facility] Address [address] [place] [address] Care Team Providers Care Film Librarian Name Role Phone Unavailable Primary Care Provider Unavailabl e Encounter Details Date Type Department Care Team (Late st Contact Info) Description 11/07/2001 19:27 [facility] Hospital Encounter [facility] - Other [address] [place] [address] Helga Michele MD [address] [facility], [address] [place] [address] Unknown, Provider, Social History Tobacco Use Types [...] slept in a alf (including now)? No 04/29/2023 Interpersonal Safety Answer [...] Info) Description 06/08/2024 13:30 EDT Office Visit [facility] [address] [facility] [address] [place], [place] [phone] Michelle Shannon MD [address] [place] [address] documented as of this encounter Procedures Procedure Name Priority Date/Time Associated Diagnosis Comments CYTOPATHOLOGY Routine 11/07/2001 0:00 EST documented in this encounter Results * CYTOPATHOLOGY (11/07/2001 0:00 EST) Pathology Report: CYTOPATHOLOGY REPORT Reports generated via electronic interface contain original data; however they are lacking the format of the original report. Caution should be taken when reading/interpreti ng unformatted reports. Name: ? EMANUEL BLAIR ? Accession #: ? [id number] : ? 1975 (Age: 26) ??F ?Collect Date: ? 11/07/2001 Location: ? [facility] ? Receive Date: ? 11/09/2001 Provider: ?HELGA MICHELE MD Copy to: ?ELEAZAR LAGUNAS MD ? Specimen/Source: ?ThinPrep Pap Test, Cervix/Endocervix Last Menstrual Period: ? 10/30/01 Hormonal/Contracep tive Status: ? 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 Colposcopy: HSIL 1995 Cryotherapy: HSIL 1995 ? SPECIMEN ADEQUACY ? Satisfactory for Evaluation - transformation zone component present GENERAL CATEGORIZATION ? Negative for Intraepithelial Lesion or Malignancy ? Document reviewed and electronically signed by: ? Ritika Lara, ??SCT(ASCP) ? Report Date: ??11/10/2001 15:02 End of Report [facility] 11/07/2001 11/09/2001 Helga Michele MD PATHOLOGY ORDERABL ES [facility] [address] [place] [address] documented in this encounter Visit Diagnoses Not on filedocumented in this encounter
--- OUTSIDE RECORDS SUMMARY | 2024-04-28 16:01 | XMS_ITS | Encounter Summary ---
Author Organization [facility] Address [address] [place] [address] Care Team Providers Care Dancing Master Name Role Phone Apolinar Lee MD Primary Care Provider [phone] [phone] Encounter Details Date Type Department Care Team (Late st Contact Info) Description 05/16/2008 Before PRISM Converted Visit (Maple) [facility] - Maple conversion [address] [place] [address] Abbey Johnson, PA-C [address] [facility], [address] [place] [address] Social History Tobacco Use Types [...] Info) Description 06/08/2024 13:30 EDT Office Visit [facility] [address] [facility] [address] [place], [place] [phone] Michelle Shannon MD [address] [place] [phone] documented as of this encounter Visit Diagnoses * Evaluation - Abbey Johnson PA - 04/17/2009 7548 EDT DIVISION OF DERMATOLOGY NEW PATIENT EVALUATION - 05/16/2008 SUBJECTIVE Jane is a 32-year-old woman who presents today for discussion of acne. She had had minor breakouts when she was a teenager but starting in 06/2007 she noticed that she started picking more as a stress reliever. There are some spots that her hand automatically goes to - which is mostly on the forehead, just along the hairline and on the sides of the face. She has picked at spots on the back of herneck and shoulders in the past as well. She does this with some degree of consciousness as a stress-relieving activity, but also thinks that she picks unconsciously. She saw Dr. Sherwood a few months ago and has been using Finacea once a day which seems to help a bit. She is also on the pill which helps with premenstrual flares. She is wondering if there is anything else that she should be using. 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 MEDICATIONS Alavert, Levora (OCP), Cymbalta, Topamax, Xanax, ibuprofen, Finacea and Axient. MEDICATION ALLERGIES None. For complete past medical history and current review of systems, please see the new patient form. 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 OBJECTIVE In no apparent distress. Slightly anxious, healthy-appearing woman seated comfortably. Skin exam: She has a few very small pink papules along the lateral aspects of the cheeks. There are a few superficial crusts on the forehead, just inside the hairline, on the lateral cheeks and on the posterior neck/shoulders. She has a few scars on the posterior neck and shoulders but her face is scar free. ASSESSMENT 1. Mild acne vulgaris. 2. 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 Long discussion with Jane. She has a fair amount of insight into her behaviors.There is really nothing medication-ba from a dermatologic perspective to alter the behavior which is causing most of her lesions. This would be handled by her primary care physician in terms of controlling her anxiety and compulsive picking. Since she is starting school and feels that her stress level will be increasing, she may want to speak with Dr. Lee about this beforehand. 2. Since she is getting some relief from the Finacea, she can increase this to twice a day. This isnot giving her any dryness or any other side effects and I am afraid that adding any other topicalsmight make her dry, thereby giving her more things to pick. 3. So far she has been very fortunate not to leave any scarring on her face, but if she continues with the behavior inevitably she will have varner, and she understands this fully. 4. Gentle cleansers and noncomedogenic moisturizers. 5. Follow up as needed. Supervising Physician Signed by Vern Silva MD 05/31/2008 14:36 Reviewed by Abbey Johnson PA-C 05/22/2008 12:12 Abbey Johnson PA-C Vern Silva MD - Abbey Johnson PA-C - [facility] Job ID: [id number] Doc ID: [id number] cc: documented in this encounter Care Teams Dancing Master Relationship Specialty Start Date End Date Apolinar Lee MD [address] [place] [address] PCP - General 01/16/09 09/07/11 documented as of this encounter
--- OUTSIDE RECORDS SUMMARY | 2024-04-28 16:01 | XMS_ITS | Encounter Summary ---
Author Organization [facility] Address [address] [place] [address] Care Team Providers Care Refinery Superintendent Name Role Phone Apolinar Lee MD Primary Care Provider [phone] [phone] Encounter Details Date Type Department Care Team (Late st Contact Info) Description 01/16/2003 Results Only [facility] - Maple conversion [address] [place] [address] Fatoumata Warner NP Social History Tobacco Use [...] Info) Description 06/08/2024 13:30 EDT Office Visit [facility] [address] [facility] [address] [place] [address] Michelle Shannon MD [address] [place] [phone] documented as of this encounter Procedures Procedure Name Priority Date/Time Associated Diagnosis Comments CYTOPATHOLOGY Routine 01/16/2003 0:00 EDT documented in this encounter Results * CYTOPATHOLOGY (01/16/2003 0:00 EDT) Pathology Report: CYTOPATHOLOGY REPORT Reports generated via electronic interface contain original data; however they are lacking the format of the original report. Caution should be taken when reading/interpreti ng unformatted reports. Name: ? EMANUEL TRONCOSO ? Accession #: ? [id number] : ? 1975 (Age: 27) ??F ?Collect Date: ? 01/16/2003 Location: ? [facility] ? Receive Date: ? 01/18/2003 Provider: ?FATOUMATA WARNER NP Copy to: ?ELEAZAR LEE MD ? Specimen/Source: ?ThinPrep Pap Test, Cervix/Endocervix Last Menstrual Period: ? 12/19/02 Hormonal/Contracep tive Status: ? Oral contraceptives Previous Gynecologic Pathology: ? HSIL: 1995 Treatment History: ? Cryotherapy ? SPECIMEN ADEQUACY ? Satisfactory for Evaluation - transformation zone component present GENERAL CATEGORIZATION ? Negative for Intraepithelial Lesion or Malignancy ? Document reviewed and electronically signed by: ? ИВАН Peoples(ASCP) ? Report Date: ??01/24/2003 09:23 End of Report [facility] 01/16/2003 01/18/2003 Fatoumata Warner NP PATHOLOGY ORDERABLES [facility] [address] [place] [address] documented in this encounter Visit Diagnoses Not on filedocumented in this encounter Care Teams Refinery Superintendent Relationship Specialty Start Date End Date Apolinar Lee MD [address] [place] [address] PCP - General 01/16/09 09/07/11 documented as of this encounter
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
--- OUTSIDE RECORDS SUMMARY | 2024-04-28 16:01 | XMS_ITS | Encounter Summary ---
Author Organization [facility] Address [address] [place] [address] Care Team Providers Care Internet Security Specialist Name Role Phone Unavailable Primary Care Provider Unavailabl e Encounter Details Date Type Department Care Team (Late st Contact Info) Description 02/01/2005 9:44 EDT Hospital Encounter [facility] - Other [address] [place] [address] Nhung Warner NP Social History Tobacco Use [...] Info) Description 06/08/2024 13:30 EDT Office Visit [facility] [address] [facility] [address] [facility] [address] [place], [place] [phone] Michelle Shannon MD [address] [place] [phone] documented as of this encounter Visit Diagnoses Not on filedocumented in this encounter
--- OUTSIDE RECORDS SUMMARY | 2024-04-28 16:01 | XMS_ITS | Encounter Summary ---
Author Organization [facility] Address [address] [place] [address] Care Team Providers Care General Accounting Manager Name Role Phone Unavailable Primary Care Provider Unavailabl e Encounter Details Date Type Department Care Team (Latest Contact Info) Description 11/10/2008 6:50 EST - 11/10/2008 11:59 EST Hospital Encounter [facility] [place] [facility] [address] [place] [address] Attarian, Viktoriya Merida MD [address] [facility] [address] [place] [address] Discharge Disposition: Home or Self Care Social [...] Info) Description 06/08/2024 13:30 EDT Office Visit [facility] [address] [facility] [address] [place], [place] [phone] Michelle Shannon MD [address] [place] [phone] documented as of this encounter Visit Diagnoses Not on filedocumented in this encounter
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
--- OUTSIDE RECORDS SUMMARY | 2024-04-28 16:01 | XMS_ITS | Encounter Summary ---
Author Organization [facility] Address [address] [place] [address] Care Team Providers Care Infrastructure Developer Name Role Phone Apolinar Lee MD Primary Care Provider [phone] [phone] Encounter Details Date Type Department Care Team (Late st Contact Info) Description 03/23/2006 Results Only [facility] [place] [facility] [address] [place], [place] [address] Harshil Santillan MD [address] [place] [address] [address] [place] [address] Social History Tobacco Use Types Packs/Day Years [...] Info) Description 06/08/2024 13:30 EDT Office Visit [facility] [address] [place] [address] Michelle Shannon MD [address] [place] [address] documented as of this encounter Procedures Procedure Name Priority Date/Time Associated Diagnosis Comments HEPATITIS C AB W REFLEX TO HCV RNA BY PCR Routine 03/23/2006 12:05 EDT COMPLETE BLOOD COUNT Routine 03/23/2006 12:05 EDT HIV 1/2 ANTIGEN AND ANTIBODY, 4TH GENERATION Routine 03/23/2006 12:05 EDT HEPATIC FUNCTION PANEL (ALB,ALK PHOS,ALT,AST,DBIL,TO T TORY,TOT PROT) Routine 03/23/2006 12:05 EDT BASIC METABOLIC PANEL (BMP) Routine 03/23/2006 12:05 EDT documented in this encounter Results * (ABNORMAL) LIVER FUNCTION TESTS (03/23/2006 12:05 EDT) Albumin 4.4 3.4 - 4.9 g/dl [facility] Total Protein 7.4 6.5 - 8.3 g/dl [facility] Total Alkaline Phosphatase 70 38 - 126 U/L [facility] ALT 21 9 - 52 U/L [facility] AST 24 15 - 46 U/L [facility] Unconjugated Bilirubin 1.7(H) 0.1 - 1.1 mg/dl [facility] Conjugated Bilirubin 0.0 0.0 - 0.3 mg/dl [facility] Bilirubin, Total 1.6(H) 0.2 - 1.3 mg/dl [facility] 03/23/2006 12:0 5 EDT 03/23/2006 19:07 EDT Harshil Santillan MD CHEMISTRY & BLOOD GAS ORDERABLES [facility] [address] [place] [address] * HIV ANTIBODY (STEVE) (03/23/2006 12:05 EDT) HIV 1/2 Antibody NONREACT. NR [facility] 03/23/2006 12:0 5 EDT 03/23/2006 19:07 EDT Harshil Santillan MD IMMUNOLOGY AND SE ROLOGY ORDERABLES Performing Organization Address [facility] de Phone Number [facility] [address] [place] [address] * HEPATITIS C ANTIBODY (03/23/2006 12:05 EDT) Pathologist [facility] Hepatitis C Ab Neg [facility] 03/23/2006 12:0 5 EDT 03/23/2006 19:07 EDT Harshil Santillan MD CHEMISTRY & BLOOD GAS ORDERABLES Performing Organization Address [facility] de Phone Number [facility] [address] [place] [address] * (ABNORMAL) HEMAGRAM (03/23/2006 12:05 EDT) [facility] WBC 5.52 4.0 - 12.4 K/cmm [facility] RBC 3.75(L) 3.86 - 5.04 M/cmm [facility] Hemoglobin 13.1 11.6 - 15.2 gm/dl [facility] HCT 38.3 34.9 - 44.4 % [facility] MCV 102(H) 81 - 98 fl [facility] MCH 34.9(H) 26.7 - 33.3 pg [facility] MCHC 34.1 32.1 - 35.9 gm/dl [facility] PLT 298 141 - 320 K/cmm [facility] RDW-CV 12.7 11.7 - 14.6 % [facility] 03/23/2006 12:0 5 EDT 03/23/2006 19:07 EDT Harshil Santillan MD HEMATOLOGY & PF4 ORDERABLES Performing Organization Address [facility] de Phone Number [facility] [address] [place] [address] * BASIC METABOLIC PANEL (03/23/2006 12:05 EDT) Pathologist [facility] Sodium 138 136 - 145 mEq/L [facility] Potassium 4.1 3.5 - 5.0 mEq/L [facility] Chloride 103 96 - 110 mEq/L [facility] CO2 25 24 - 32 mEq/L [facility] BUN 11 10 - 26 mg/dl [facility] Creatinine 0.8 0.7 - 1.5 mg/dl [facility] Calcium 9.2 8.5 - 10.5 mg/dl [facility] Calculated Calcium 9.2 8.5 - 10.5 mg/dl [facility] Glucose, Serum 78 70 - 100 mg/dl [facility] Fasting? No [facility] 03/23/2006 12:0 5 EDT 03/23/2006 19:07 EDT Harshil Santillan MD CHEMISTRY & BLOOD GAS ORDERABLES [facility] [address] [place] [address] documented in this encounter Visit Diagnoses Not on filedocumented in this encounter Care Teams Infrastructure Developer Relationship Specialty Start Date End Date Apolinar Lee MD [address] [place] [address] PCP - General 01/16/09 09/07/11 documented as of this encounter
--- OUTSIDE RECORDS SUMMARY | 2024-04-28 16:01 | XMS_ITS | Encounter Summary ---
Author Organization [facility] Address [address] [place] [address] Care Team Providers Care Agent Contract Clerk Name Role Phone Unavailable Primary Care Provider Unavailabl e Encounter Details Date Type Department Care Team (Latest Contact Info) Description 03/23/2006 19:22 EDT Hospital Encounter [facility] - Other [address] [place] [address] Harshil Santillan MD [address] [place] [phone] Discharge Disposition: Home or Self Care [...] Info) Description 06/08/2024 13:30 EDT Office Visit [facility] [address] [facility] [address] [place] [address] Michelle Shannon MD [address] [place] [phone] documented as of this encounter Visit Diagnoses Not on filedocumented in this encounter
--- OUTSIDE RECORDS SUMMARY | 2024-04-28 16:01 | XMS_ITS | Encounter Summary ---
Author Organization [facility] Address [address] [place] [address] Care Team Providers Care Counter Tender Name Role Phone Apolinar Lee MD Primary Care Provider +1 [phone] Encounter Details Date Type Department Care Team (Latest Contact Info) Description 01/21/2009 15:00 EDT - 01/21/2009 23:59 EDT Hospital Encounter [facility] [address] [place], [place] [address] Unknown, Provider, Discharge Disposition: Auto Discharge Social History Tobacco [...] Info) Description 06/08/2024 13:30 EDT Office Visit [facility] [address] [facility] [address] [place], [place] [phone] Michelle Shannon MD [address] [place] [phone] documented as of this encounter Visit Diagnoses Not on filedocumented in this encounter Care Teams Counter Tender Relationship Specialty Start Date End Date Apolinar Lee MD [address] [place] [address] PCP - General 01/16/09 09/07/11 documented as of this encounter
--- OUTSIDE RECORDS SUMMARY | 2024-04-28 16:01 | XMS_ITS | Encounter Summary ---
Author Organization [facility] Address [address] [place] [address] Care Team Providers Care String Cutter Name Role Phone Unavailable Primary Care Provider Unavailabl e Encounter Details Date Type Department Care Team (Late st Contact Info) Description 05/07/2005 15:00 EDT Hospital Encounter [address] [address] Yovany Pearce, AREA COUNSELOR [address] [place] [address] Ted Panchal MD [address] [place] [address] Social History Tobacco Use Types Packs/Day Years [...] Info) Description 06/08/2024 13:30 EDT Office Visit [facility] [address] [place], [place] [phone] Michelle Shannon MD [address] [place] [address] documented as of this encounter Visit Diagnoses Not on filedocumented in this encounter
--- OUTSIDE RECORDS SUMMARY | 2024-04-28 16:01 | XMS_ITS | Encounter Summary ---
Author Organization [facility] Address [address] [place] [address] Care Team Providers Care Construction Services Technician Name Role Phone Unavailable Primary Care Provider Unavailabl e Encounter Details Date Type Department Care Team (Latest Contact Info) Description 11/27/2008 15:14 EST Hospital Encounter [facility] [address] [place] [address] Unknown, Provider, Discharge Disposition: Auto Discharge Social [...] Info) Description 06/08/2024 13:30 EDT Office Visit [facility] [address] [facility] [address] [place] [address] Michelle Shannon MD [address] [place] [phone] documented as of this encounter Visit Diagnoses Not on filedocumented in this encounter
--- OUTSIDE RECORDS SUMMARY | 2024-04-28 16:01 | XMS_ITS | Encounter Summary ---
Author Organization [facility] Address [address] [place] [address] Care Team Providers Care Scale Assembly Set Up Worker Name Role Phone Apolinar Lee MD Primary Care Provider +1 [phone] Encounter Details Date Type Department Care Team (Late st Contact Info) Description 02/18/2010 15:56 EDT - 02/18/2010 15:57 EDT Hospital Encounter [facility] - Other [address] [place] [address] Trish Flores MD [address] [place] [address] Discharge Disposition: Home or Self Care Social [...] or Self Care documented in this encounter Miscellaneous Notes * Scanned Note-Null - Inpatient, Physician - 02/18/2010 0000 EDT documented in this encounter Plan of Treatment Upcoming Encounters Date Type Department Care Team (Late st Contact Info) Description 06/08/2024 13:30 EDT Office Visit [facility] [address] [place] [address] Michelle Shannon MD [address] [place] [phone] documented as of this encounter Visit Diagnoses Not on filedocumented in this encounter Care Teams Scale Assembly Set Up Worker Relationship Specialty Start Date End Date Apolinar Lee MD [address] [place] [phone] PCP - General 01/16/09 09/07/11 documented as of this encounter
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
--- OUTSIDE RECORDS SUMMARY | 2024-04-28 16:01 | XMS_ITS | Encounter Summary ---
Author Organization [facility] Address [address] [place] [address] Care Team Providers Care Agricultural Science Professor Name Role Phone Apolinar Lee MD Primary Care Provider [phone] Encounter Details Date Type Department Care Team (Late st Contact Info) Description 06/29/[address] [facility] Laboratory Services - [facility] ([facility] [address] [place] [id number] Fatoumata Warner NP Social History Tobacco Use [...] Info) Description 06/08/2024 13:30 EDT Office Visit [facility], [address] [place] [address] Michelle Shannon MD [address] [place] [address] documented as of this encounter Procedures Procedure Name Priority Date/Time Associated Diagnosis Comments SYPHILIS SEROLOGY Routine 06/29/2010 9:3 0 EDT HEPATITIS C AB W REFLEX TO HCV RNA BY PCR Routine 06/29/2010 9:30 EDT HEPATITIS B SURFACE ANTIGEN Routine 06/29/2010 9:30 EDT HIV 1/2 ANTIGEN AND ANTIBODY, 4TH GENERATION Routine 06/29/2010 9:30 EDT CYTOPATHOLOGY Routine 06/29/2010 0:00 EDT documented in this encounter Results * SYPHILIS SEROLOGY (06/29/2010 9:30 EDT) Pathologist [facility] Syphilis Serology Interpretation: Nonreactive Reference Range: Nonreactive [facility] 06/29/2010 9:30 EDT 06/29/2010 11:51 EDT Fatoumata Warner NP IMMUNOLOGY AND SEROL OGY ORDERABLES Performing Organization Address [facility] Co de Phone Number [facility] [address] [place] [address] * HIV ANTIBODY (06/29/2010 9:30 EDT) Pathologist [facility] HIV 1/2 Antibody Negative Reference Range: Negative [facility] 06/29/2010 9:30 EDT 06/29/2010 11:51 EDT Fatoumata Warner NP IMMUNOLOGY AND SEROL OGY ORDERABLES Performing Organization Address [facility] [[email or web address]] de Phone Number [facility] [address] [place] [address] * HEPATITIS C ANTIBODY (06/29/2010 9:30 EDT) Pathologist [facility] Hepatitis C Ab Negative Reference Range: Negative [facility] 06/29/2010 9:30 EDT 06/29/2010 11:51 EDT Fatoumata Warner NP CHEMISTRY & BLOOD GA S ORDERABLES Performing Organization Address [facility] Co de Phone Number [facility] [address] [place] [address] * HEPATITIS B SURFACE ANTIGEN (06/29/2010 9:30 EDT) Pathologist [facility] Hepatitis B Surface Ag Negative Reference Range: Negative [facility] 06/29/2010 9:30 EDT 06/29/2010 11:51 EDT Fatoumata Warner RADIOLOGY SPECIAL PROCEDURE TECH CHEMISTRY & BLOOD GA S ORDERABLES [facility] [address] [place] [address] * CYTOPATHOLOGY (06/29/2010 0:00 EDT) Pathology Report: CYTOPATHOLOGY REPORT ? Reports generated via electronic interface contain original data; ? however they are lacking the format of the original report. ? Caution should be taken when reading/interpreti ng unformatted reports. ? Name: ? EMANUEL TRONCOSO ? Accession #: ? [id number] ? : ? 1975 (Age: 35) ??F ?Collect Date: ? 06/29/2010 ? Location: ? [facility] ? Receive Date: ? 07/01/2010 ? Provider: ?FATOUMATA JOSSUE RADIOLOGY SPECIAL PROCEDURE TECH ? Copy to: ? Specimen/Source: ?Pap Test, Cervix/Endocervix, ThinPrep Imaging System ? with manual evaluation ? Last Menstrual Period: ? 8/10 ? Hormonal/Contracep tive Status: ? Oral contraceptives ? Other: ? HPVA - HPV testing requested if ASC-US on the current ThinPrep Pap test. ? SPECIMEN ADEQUACY ? Satisfactory for Evaluation ? - transformation zone component present ? GENERAL CATEGORIZATION ? Negative for Intraepithelial Lesion or Malignancy ? INTERPRETATION ? Shift in gurdeep present suggestive of bacterial vaginosis. ? Document reviewed and electronically signed by: ? Álvaro Craig, CT(ASCP) ? Report Date: ??07/02/2010 11:01 ? End of Report ? [facility] 06/29/2010 07/01/2010 Fatoumata Warner RADIOLOGY SPECIAL PROCEDURE TECH PATHOLOGY ORDERABLES Performing Organization Address City/State/[facility] Co de Phone Number [facility] [address] [place] [address] documented in this encounter Visit Diagnoses Not on filedocumented in this encounter Care Teams Agricultural Science Professor Relationship Specialty Start Date End Date Apolinar Lee MD [address] [place] [address] PCP - General 01/16/09 09/07/11 documented as of this encounter
--- OUTSIDE RECORDS SUMMARY | 2024-04-28 16:01 | XMS_ITS | Encounter Summary ---
Author Organization [facility] Address [address] [place] [address] Care Team Providers Care Band Splitter Name Role Phone Unavailable Primary Care Provider Unavailabl e Encounter Details Date Type Department Care Team (Latest Contact Info) Description 11/11/2008 11:12 EST - 11/11/2008 11:59 EST Hospital Encounter [facility] - Map conversion [address] [place] [address] Attarian, Viktoriya Merida MD [address] [facility] [address] [place] [phone] Discharge Disposition: Auto Discharge Social History Tobacco [...] 13:30 EDT Office Visit [facility], [address] [facility] [address] [place], [place] [id number] Michelle Shannon MD [address] [place] [phone] documented as of this encounter Visit Diagnoses Not on filedocumented in this encounter
--- OUTSIDE RECORDS SUMMARY | 2024-04-28 16:01 | XMS_ITS | Encounter Summary ---
Author Organization [facility] Address [address] [place] [address] Care Team Providers Care Disability Manager Name Role Phone Unavailable Primary Care Provider Unavailabl e Encounter Details Date Type Department Care Team (Latest Contact Info) Description 05/07/2004 22:53 EDT Hospital Encounter [facility] - Other [address] [place] [address] Jeniffer Prabhakar, KAMALJIT PAPER SLITTER Discharge Disposition: Auto Discharge Social History Tobacco [...] Info) Description 06/08/2024 13:30 EDT Office Visit [facility] [address] [place] [address] Michelle Shannon MD [address] [place] [address] documented as of this encounter Visit Diagnoses Not on filedocumented in this encounter
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
--- OUTSIDE RECORDS SUMMARY | 2024-04-28 16:01 | XMS_ITS | Encounter Summary ---
Author Organization [facility] Address [address] [place] [address] Care Team Providers Care Sales Audit Clerk Name Role Phone Apolinar Lee MD Primary Care Provider [phone] Encounter Details Date Type Department Care Team (Late st Contact Info) Description 02/18/2010 Results Only [facility] - [facility] ([facility]) [address] [place], [place] [id number] Trish Flores MD [address] [place] [address] Social History Tobacco Use Types Packs/Day Years [...] Info) Description 06/08/2024 13:30 EDT Office Visit [facility] [address] [facility] [address] [place] [address] Michelle Shannon MD [address] [place] [address] documented as of this encounter Procedures Procedure Name Priority Date/Time Associated Diagnosis Comments SURGICAL PATHOLOGY Routine 02/18/2010 0:00 EDT documented in this encounter Results * SURGICAL PATHOLOGY (02/18/2010 0:00 EDT) Pathology Report: SURGICAL PATHOLOGY REPORT ? Reports generated via electronic interface contain original data; ? however they are lacking the format of the original report. ? Caution should be taken when reading/interpreti ng unformatted reports. ? Name: ? EMANUEL BLAIR M ? Accession #: ? [id number] ? : ? 1975 (Age: 34) ??F ? Collect Date: ? 02/18/2010 ? Location: ? [facility] ? Receive Date: ? 02/20/2010 ? Provider: TRISH E FLORES MD ? Copy to: ? Final Pathologic Diagnosis: ? Skin of breast, right areola, shave biopsy: ? - Acrochordon. ? Microscopic Description: ? There is a polypoid papule with a papillated epidermal surface. ??The ? stratum corneum is composed of a relatively normal layer of orthokeratin. ??The ?? dermis is composed of loose fibrous connective tissue and dilated vessels. ??(Dr. Berry)/mpl ? Document reviewed and electronically signed by: ? Thelma Berry MD ? Report ??Date: 02/24/2010 16:24 ? By the signature above, the attending physician certifies that he/she has ? personally conducted a gross and/or microscopic examination of the described ? specimens and rendered or confirmed the above diagnosis. ? Specimen(s) Received: ? Breast skin tag/growth ? Clinical History: ? G0 with new R areolar skin tag ? Gross Description: ? Received in formalin labelled Johnnie, Emanuel and skin tag is a 0.5 x 0.3 x 0.2 cm pink-sanabria, wrinkled, pedunculated portion of skin. ??The resection margin is inked black, the specimen is submitted intact in a single cassette. ??(L. ? Nura)/ritu ? End of Report ? [facility] 02/18/2010 02/20/2010 8:3 3 EDT Trish Flores MD PATHOLOGY NADEGE ELIAS Performing Organization Address City/State/[facility] Co de Phone Number [facility] [address] [place] [address] documented in this encounter Visit Diagnoses Not on filedocumented in this encounter Care Teams Sales Audit Clerk Relationship Specialty Start Date End Date Apolinar Lee MD [address] [place] [address] PCP - General 01/16/09 09/07/11 documented as of this encounter
--- OUTSIDE RECORDS SUMMARY | 2024-04-28 16:01 | XMS_ITS | Encounter Summary ---
Author Organization [facility] Address [address] [place] [address] Care Team Providers Care Control Panel Tester Name Role Phone Unavailable Primary Care Provider Unavailabl e Encounter Details Date Type Department Care Team (Late st Contact Info) Description 11/18/2000 12:23 [facility] Hospital Encounter [facility] - Other [address] [place] [address] Fatoumata Warner, CURTIS Unknown, Provider, Social History Tobacco Use Types [...] Description 06/08/2024 13:30 EDT Office Visit [facility] [address] [facility] [address] [place], [place] [phone] Michelle Shannon MD [address] [place] [address] documented as of this encounter Procedures Procedure Name Priority Date/Time Associated Diagnosis Comments N.GONORRHOEAE PROBE Routine 11/18/2000 1 2:44 EST CHLAMYDIA TRACHOMATIS PROBE Routine 11/18/2000 12:44 EST CYTOPATHOLOGY Routine 11/18/2000 0:00 EST documented in this encounter Results * N.GONORRHOEAE PROBE (11/18/2000 12:44 EST) Specimen Description Cervix [facility] Result No Neisseria gonorrhoeae DNA detected by environmental inspector mediated amplification. [facility] Report Status Final [id number] [facility] 11/18/2000 12:4 4 EST 11/22/2000 12:44 EST Fatoumata Timmy TOUR DRIVER HISTORICAL LAB FOR S Q LOAD Performing Organization Address [facility] Co de Phone Number [facility] [address] [place] [address] * CHLAMYDIA TRACHOMATIS PROBE (11/18/2000 12:44 EST) Specimen Description Cervix [facility] Result No Chlamydia trachomatis DNA detected by environmental inspector mediated amplification. [facility] Report Status Final [id number] [facility] 11/18/2000 12:4 4 EST 11/22/2000 12:44 EST Fatoumata Warner TOUR DRIVER HISTORICAL LAB FOR S Q LOAD Performing Organization Address [facility] de Phone Number [facility] [address] [place] [address] * CYTOPATHOLOGY (11/18/2000 0:00 EST) Pathology Report: CYTOPATHOLOGY REPORT Reports generated via electronic interface contain original data; however they are lacking the format of the original report. Caution should be taken when reading/interpreti ng unformatted reports. Name: ? EMANUEL TRONCOSO ? Accession #: ? [id number] : ? 1975 (Age: 25) ??F ?Collect Date: ? 11/18/2000 Location: ? [facility] ? Receive Date: ? 11/22/2000 Provider: ?FATOUMATA WARNER TOUR DRIVER Copy to: ?ELEAZAR LAGUNAS MD ? Specimen/Source: ?ThinPrep Pap Test, Cervix/Endocervix Last Menstrual Period: ? 11/01/00 Hormonal/Contracep tive Status: ? 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 Colposcopy: 1995 HSIL Cryotherapy: 1995 HSIL ? SPECIMEN ADEQUACY ? Satisfactory for evaluation. GENERAL CATEGORIZATION ? Within Normal Limits ? Document reviewed and electronically signed by: ? Angelique Shepard, [facility](AS[facility]) ? Report Date: ??11/23/2000 13:28 End of Report [facility] 11/18/2000 11/22/2000 Fatoumata Warner NP PATHOLOGY ORDERABLES [facility] [address] [place] [address] documented in this encounter Visit Diagnoses Not on filedocumented in this encounter
--- OUTSIDE RECORDS SUMMARY | 2024-04-28 16:01 | XMS_ITS | Encounter Summary ---
Author Organization [facility] Address [address] [place] [address] Care Team Providers Care Manager Agriculture Name Role Phone Unavailable Primary Care Provider Unavailabl e Encounter Details Date Type Department Care Team (Latest Contact Info) Description 07/08/2008 10:39 EDT - 07/08/2008 11:59 EDT Hospital Encounter [facility] - Other [address] [place] [address] Nhung Warner NP Discharge Disposition: Home or [...] Description 06/08/2024 13:30 EDT Office Visit [facility] [address] [facility] [address] [place] [address] Michelel Shannon MD [address] [place] [address] documented as of this encounter Procedures Procedure Name Priority Date/Time Associated Diagnosis Comments CHLAMYDIA/N. GONORRHOEAE AMPLIFIED NUCLEIC ACID Routine 07/08/2008 11:28 EDT documented in this encounter Results * CHLAMYDIA/GC AMPLIFIED (07/08/2008 11:28 EDT) Specimen Description Cervix [facility] Result No Chlamydia trachomatis DNA detected by mental health specialist mediated amplification. [facility] Result No Neisseria gonorrhoeae DNA detected by mental health specialist mediated amplification. [facility] 07/08/2008 11:2 8 EDT 07/09/2008 11:28 EDT Nhung Warner NP MICROBIOLOGY - GENER AL ORDERABLES [facility] [address] [place] [address] documented in this encounter Visit Diagnoses Not on filedocumented in this encounter
--- OUTSIDE RECORDS SUMMARY | 2024-04-28 16:01 | XMS_ITS | Encounter Summary ---
Author Organization [facility] Address [address] [place] [address] Care Team Providers Care Priming Powder Premix Blender Name Role Phone Unavailable Primary Care Provider Unavailabl e Encounter Details Date Type Department Care Team (Latest Contact Info) Description 09/09/2008 9:06 EST - 09/09/2008 11:59 EST Hospital Encounter [facility] [address] [place] [address] Bryce Jimenez MD [address] [place] [address] Discharge Disposition: Auto Discharge Social History Tobacco [...] Info) Description 06/08/2024 13:30 EDT Office Visit [facility] [address] [facility] [address] [place] [address] Michelle Shannon MD [address] [place] [phone] documented as of this encounter Visit Diagnoses Not on filedocumented in this encounter
--- OUTSIDE RECORDS SUMMARY | 2024-04-28 16:02 | XMS_ITS | Encounter Summary ---
Author Organization [facility] Address [address] [place] [address] Care Team Providers Care Sales And Service Technician Name Role Phone Unavailable Primary Care Provider Unavailabl e Encounter Details Date Type Department Care Team (Late st Contact Info) Description 09/28/1999 20:03 [facility] Hospital Encounter [facility] - Other [address] [place] [address] Laurel Mon MD Unknown, Provider, Social History Tobacco Use Types [...] Info) Description 06/08/2024 13:30 EDT Office Visit [facility] [address] [place], [place] [phone] Michelle Shannon MD [address] [place] [address] documented as of this encounter Procedures Procedure Name Priority Date/Time Associated Diagnosis Comments GLUCOSE, SERUM Routine 09/28/1999 9:20 EST LIPID PROFILE (INCLUDES CHOLESTEROL, TRIGLYCERIDES, HDL, LDL) Routine 09/28/1999 9:20 EST documented in this encounter Results * GLUCOSE, SERUM (09/28/1999 9:20 EST) Glucose, Serum 87 70 - 110 mg/dl [facility] Comment:Fasting 09/28/1999 9:20 EST 09/28/1999 12:36 EST Laurel Mon MD CHEMISTRY & BLOOD GA S ORDERABLES Performing Organization Address [facility] de Phone Number [facility] [address] [place] [address] * LIPID PROFILE (INCLUDES CHOLESTEROL, TRIGLYCERIDES, HDL, LDL) (09/28/1999 9:20 EST) Cholesterol 166 mg/dl [facility] Comment: Desirable:<200 Borderline:200-239 High Risk:>[id number] Fasting Triglycerides 121 35 - 160 mg/dl [facility] Comment:Fasting HDL 62 mg/dl [facility] Comment: Highly Desirable:>60 Desirable:35-60 High Risk:<35 Fasting LDL, Calculated 80 mg/dl [facility] Comment: Desirable:<130 Borderline:130-159 High Risk:>[id number] Fasting Chol/HDL Ratio 2.7 Fasting [facility] 09/28/1999 9:20 EST 09/28/1999 12:36 EST Laurel Mon MD CHEMISTRY & BLOOD GA S ORDERABLES Performing Organization Address [facility] Co de Phone Number [facility] [address] [place] [address] documented in this encounter Visit Diagnoses Not on filedocumented in this encounter
== END 2024-04-28 15:48 | disposition home or self-care (01) ==
LOC: LBN 15:47
PROVIDERS: PCP Internal Medicine; Visit Provider Nurse Practitioner Family
DX: N76.0 Acute vaginitis (principal); B37.9 Candidiasis, unspecified
CPT/HCPCS: 87480; 87510; 87660

== ENCOUNTER 2025-06-06 15:01 | Outpatient (REF) | payer MEDICARE, SELFPAY ==
[2025-06-10 11:29] LABS: Chlamydia Result Invalid (Negative); GC Result Invalid (Negative)
== END 2025-06-06 15:02 | disposition home or self-care (01) ==
LOC: LBN 15:01
PROVIDERS: PCP Internal Medicine; Visit Provider Physician Assistant
DX: Z11.3 Encounter for screening for infections with a predominantly sexual mode of transmission (principal); N39.0 Urinary tract infection, site not specified; R30.0 Dysuria
CPT/HCPCS: 87077; 87491; 87591; 87086; 87480; 87510; 87660

== ENCOUNTER 2025-06-10 00:21 | Outpatient (CLI) | payer MEDICARE, SELFPAY ==
--- NOTE | 2025-06-10 06:30 | DI.US_ITS ---
Exam(s) US PELVIS TRANSVAGINAL EXAM: US PELVIS TRANSVAGINAL CLINICAL HISTORY: abd pain, lower,pelvic pain,r10.2. TECHNIQUE: Transabdominal and transvaginal pelvic ultrasound was performed using standard protocol. COMPARISON: No exams were available for comparison FINDINGS: UTERUS: Position: Anteverted. Size: 6.2 long by 2.8 AP by 4.2 transverse cm Endometrium: 0.8 cm. Endometrial stripe is thickened in this postmenopausal patient. Myometrium: There is a 0.7 x 0.4 x 0.6 cm hypoechoic mass in the posterior body of the uterus suggestive of a fibroid. Cervix: Unremarkable. OVARIES: Left ovary was not visualized transabdominally or transvaginally. No left adnexal mass is seen. Right: 2.1 x 1.6 x 2.3 cm Cyst or mass: No suspicious cystic or solid masses. CUL-DE-SAC: Free fluid: None. Other: None. IMPRESSION: 1. Thickened endometrial stripe measuring 0.8 cm in this postmenopausal patient. This should be followed up in this postmenopausal patient. 2. Uterine fibroid. 3. The left ovary was not visualized. The right ovary is unremarkable. DATA REPOSITORY:
--- NOTE | 2025-06-10 06:30 | DI.RAD_ITS ---
Exam(s) XR ABDOMEN FLAT UPRIGHT EXAM: 2D digital imaging was performed. CLINICAL HISTORY: pelvic pain,low abd pain. COMPARISON: No exams were available for comparison TECHNIQUE: Supine and upright views of the abdomen was performed. Four images were obtained. FINDINGS: LUNG BASES: Clear. BOWEL GAS PATTERN: Nondistended. FREE AIR: None. CALCIFICATIONS: No radiopaque calcifications. OSSEOUS STRUCTURES: Normal for age. There is a bone island on the left iliac bone. OTHER FINDINGS: None. IMPRESSION: No evidence of an acute abdomen. DATA REPOSITORY: RADIATION DOSE DELIVERED:
== END 2025-06-10 00:41 ==
LOC: DI 00:21
PROVIDERS: PCP Internal Medicine; Visit Provider Physician Assistant
DX: R10.2 Pelvic and perineal pain (principal)
CPT/HCPCS: 74019; 76830; 76856

== ENCOUNTER 2025-09-02 01:23 | Outpatient (CLI) | payer MEDICARE, SELFPAY ==
[2025-09-02 14:09] LABS: Abs Immature Grans 0.03 10^3/uL (0.0-0.06); HCT 28.9 % (36.0-46.0); HGB 7.7 g/dL (11.2-15.7); Immature Grans % 0.5 %; MCH 19.9 pg (27.0-33.0); MCHC 26.6 % (32.0-36.0); MCV 75 fL (80-95); MPV 9.0 fL (8.0-11.0); Platelet Count 424 10^3/uL (130-400); RBC 3.87 10^6/uL (3.93-5.22); RDW 20.7 % (11.7-14.6); RDW-SD 55.8 fL; WBC 6.60 10^3/uL (4.4-10.8)
[2025-09-02 14:22] LABS: Anisocytosis 2+
[2025-09-02 14:23] LABS: Hypochromasia 1+; Microcytosis 2+; Polychromasia Present
== END 2025-09-02 01:24 | disposition home or self-care (01) ==
LOC: LBO 01:23
PROVIDERS: PCP Internal Medicine; Visit Provider Obstetrics & Gynecology
DX: Z01.818 Encounter for other preprocedural examination (principal)
CPT/HCPCS: 36415; 86850; 86900; 86901; 85025

== ENCOUNTER 2025-09-03 10:51 | Outpatient (CLI) | payer MEDICARE, SELFPAY ==
[2025-09-03 11:03] LABS: Abs Immature Grans 0.03 10^3/uL (0.0-0.06); HCT 28.1 % (36.0-46.0); HGB 7.5 g/dL (11.2-15.7); Immature Grans % 0.5 %; MCH 20.1 pg (27.0-33.0); MCHC 26.7 % (32.0-36.0); MCV 75 fL (80-95); MPV 9.0 fL (8.0-11.0); Platelet Count 426 10^3/uL (130-400); RBC 3.73 10^6/uL (3.93-5.22); RDW 20.8 % (11.7-14.6); RDW-SD 56.3 fL; WBC 5.91 10^3/uL (4.4-10.8)
[2025-09-03 11:21] LABS: Anisocytosis 2+; Hypochromasia 2+; Polychromasia Present
[2025-09-03 11:22] LABS: Poikilocytes 2+
[2025-09-03 11:27] LABS: Vitamin B12 443 pg/mL (211-911)
[2025-09-03 11:28] LABS: Ferritin 3 ng/mL (7-271); Folate 18.0 ng/mL (>5.38)
[2025-09-03 12:08] LABS: Iron 10 ug/dL (50-170); Total Iron Binding Capacity 415 ug/dL (250-425); Transferrin Sat 2 % (15-50)
== END 2025-09-03 10:52 | disposition home or self-care (01) ==
LOC: LBO 10:52
PROVIDERS: PCP Internal Medicine; Visit Provider Internal Medicine
DX: D64.9 Anemia, unspecified (principal)
CPT/HCPCS: 36415; 82607; 82728; 82746; 83010; 83540; 83550; 85025; 85045

== ENCOUNTER → 2025-09-10 09:22 | Outpatient (BNVA) | payer MEDICARE, SELFPAY | PROVIDERS: PCP Internal Medicine; Referring Provider Internal Medicine; Visit Provider Student in an Organized Health Care Education/Training Program | DX: D50.9 Iron deficiency anemia, unspecified (principal) | CPT/HCPCS: 99214 ==

== ENCOUNTER 2025-09-20 09:48 | Outpatient (CLI) | payer MEDICARE, SELFPAY ==
[2025-09-20 10:51] LABS: HCT 30.1 % (36.0-46.0); HGB 7.9 g/dL (11.2-15.7); MCH 21.1 pg (27.0-33.0); MCHC 26.2 % (32.0-36.0); MCV 80 fL (80-95); MPV 9.7 fL (8.0-11.0); Platelet Count 374 10^3/uL (130-400); RDW 25.2 % (11.7-14.6); RDW-SD 71.8 fL; WBC 5.62 10^3/uL (4.4-10.8)
[2025-09-20 11:22] LABS: RBC 3.75 10^6/uL (3.93-5.22)
[2025-09-20 12:09] LABS: Iron 146 ug/dL (50-170)
== END 2025-09-20 09:49 | disposition home or self-care (01) ==
PROVIDERS: PCP Internal Medicine; Visit Provider Internal Medicine
DX: D50.9 Iron deficiency anemia, unspecified (principal)
CPT/HCPCS: 36415; 85027; 82728; 83540